=== PATIENT | female | born 1975 | race Caucasian/White ===

== ENCOUNTER 2020-05-09 19:00 | Inpatient (IN) | payer MEDICAID, OTHER, SELFPAY ==
[2020-05-30 03:00] VITALS: BMI 29.0
[2020-05-31] MEDS: hydrOXYzine HCL 25 MG TABLET PO (00:30)
[2020-05-31] MEDS: traZODone HCL 50 MG TABLET PO (00:30)
[2020-05-31] MEDS: LORazepam 1 MG TABLET PO (02:00)
[2020-05-31] MEDS: QUEtiapine Fumarate 50 MG TABLET PO ×2 (02:00→22:32)
[2020-05-31 06:00] VITALS: BP 118/72; PULSE 97; RESP 18; TEMP 36.1; O2SAT 96
[2020-05-31] MEDS: Levothyroxine Sodium 100 MCG TABLET PO (06:41)
[2020-05-31 07:00] VITALS: BMI 33.0
[2020-05-31] MEDS: cloZAPine 25 MG TABLET 50 MG PO (09:29)
[2020-05-31] MEDS: Sertraline HCL 25 MG TABLET PO (09:29)
[2020-05-31] MEDS: Divalproex Sodium ER 250 MG TAB.ER.24H 750 MG PO ×2 (09:30→22:33)
[2020-05-31] MEDS: Propranolol HCL 10 MG TABLET PO ×3 (09:36→22:33)
[2020-05-31] MEDS: LORazepam 0.5 MG TABLET PO ×3 (10:08→22:32)
[2020-05-31 13:00] VITALS: PULSE 106
[2020-05-31 18:00] VITALS: BP 129/84; PULSE 99; TEMP 36.6
--- NOTE | 2020-05-31 21:05 | HO.PSYCHPN ---
Assessment & Plan Assessment & Plan (1) Bipolar 1 disorder, mixed: Status: Acute Code(s): F31.60 - Bipolar disorder, current episode mixed, unspecified (2) OCD (obsessive compulsive disorder): Status: Acute Code(s): F42.9 - Obsessive-compulsive disorder, unspecified Assessment and Plan: continue clozapine Seroquel increase sertraline Greater than 50% of the session was spent on counseling and/or coordination of care Subjective Subjective Reason For Visit: Mdd Interim History: patient somewhat calmer less irritable severe sedation noted Medication Compliance: Yes Side effects from medications: Yes Mental Status Exam Mental Status Exam Patient Appearance: Fatigued Level of Consciousness: Drowsy Patient Behavior: Anxious, Fatigued and Distractible Mood Description: Withdrawn, Depressed, Nervous and Apprehensive Affect Description: Withdrawn Hallucinations: None Delusions: Not Present Thought Process: Distracted and Rumination Thought Content: Obsessional Thoughts Depressive Symptoms: Increased Anxiety and Diff. Making Decisions Judgement: Fair Diagnostics Vital Signs (24Hr): Vital Signs - 24 hr 05/31/20 06:00 05/31/20 13:00 Temperature 97 F Pulse Rate 97 106 H Respiratory Rate 18 Blood Pressure 118/72 Pulse Oximetry 96 Body Mass Index 33.0 Labs Results: 05/24/20 09:20 05/11/20 08:02 Medications Medications Ambulatory Orders Medication Instructions Recorded diazepam 10 mg PO BID PRN 05/30/20 divalproex 500 mg PO BID 05/30/20 levothyroxine 100 mcg PO DAILY 05/30/20 lurasidone 40 mg PO DAILY 05/30/20 oxybutynin chloride 10 mg PO DAILY 05/30/20 quetiapine 200 mg PO BEDTIME 05/30/20 Allergies Allergies Allergy/AdvReac Type Severity Reaction Status Date / Time No Known Allergies Allergy Unverified 05/17/20 19:50 [No Known Allergies*]
[2020-05-31] MEDS: cloZAPine 100 MG TABLET 150 MG PO (22:32)
[2020-05-31 22:33] VITALS: BP 129/84; PULSE 99
[2020-06-01] MEDS: traZODone HCL 50 MG TABLET PO (00:09)
[2020-06-01] MEDS: hydrOXYzine HCL 25 MG TABLET PO (00:09)
[2020-06-01 06:00] VITALS: BP 105/56; PULSE 95; RESP 18; TEMP 36.4; O2SAT 97
[2020-06-01] MEDS: Levothyroxine Sodium 100 MCG TABLET PO (06:46)
[2020-06-01] MEDS: Divalproex Sodium ER 250 MG TAB.ER.24H 750 MG PO (08:43)
[2020-06-01] MEDS: Sertraline HCL 25 MG TABLET PO (08:43)
[2020-06-01] MEDS: LORazepam 0.5 MG TABLET PO ×3 (08:44→21:44)
[2020-06-01] MEDS: cloZAPine 25 MG TABLET 50 MG PO (08:44)
[2020-06-01 08:45] VITALS: BP 105/56; PULSE 95
[2020-06-01] MEDS: Propranolol HCL 10 MG TABLET PO ×3 (08:45→21:57)
[2020-06-01 12:59] VITALS: PULSE 88
[2020-06-01 16:21] VITALS: BP 121/63; PULSE 86; TEMP 36.4
[2020-06-01] MEDS: Divalproex Sodium ER 500 MG TAB.ER.24H 1000 MG PO (21:44)
[2020-06-01] MEDS: cloZAPine 25 MG TABLET 175 MG PO (21:45)
[2020-06-01 21:57] VITALS: BP 129/77; PULSE 102
--- NOTE | 2020-06-01 23:55 | HO.PSYCHPN ---
Assessment & Plan Assessment & Plan (1) OCD (obsessive compulsive disorder): Status: Acute Code(s): F42.9 - Obsessive-compulsive disorder, unspecified (2) Bipolar 1 disorder, mixed: Status: Acute Code(s): F31.60 - Bipolar disorder, current episode mixed, unspecified Assessment and Plan: taper lorazepam Seroquel Depakote change clozapine to mostly at bedtime will check clozapine level patient quite sedated unable to function will need to taper medication down had been quite manic agitated on admission Greater than 50% of the session was spent on counseling and/or coordination of care Subjective Subjective Reason For Visit: Mdd Interim History: patient anxious depressed quite sedated unable to function need to taper medication patient aware Medication Compliance: Yes Side effects from medications: Yes Attending Groups: Intermittent Mental Status Exam Mental Status Exam Narrative: dressed mostly appropriately odd affect, Patient Appearance: Fatigued Patient Orientation: Person, Place, Time and Situation Level of Consciousness: Drowsy Patient Behavior: Hypersexual (wants a medication to decrease this), Restless and Invasion - Personal Space (stands too close , less so today) Mood Description: Fearful and Angry Affect Description: Labile Patient Cognition Impaired: No Ability to Follow Directions: Fair Speech Pattern: Perseverating Thought Process: Racing and Rumination Thought Content: positive for Perseveration Depressive Symptoms: Sleeping More Than Usual (in day) and Thoughts of /Suicide Abnormal Motor Activity Signs and Symptoms: Restlessness Judgement: Poor Diagnostics Vital Signs (24Hr): Vital Signs - 24 hr 06/01/20 06:00 06/01/20 08:45 06/01/20 12:59 Temperature 97.6 F Pulse Rate 95 95 88 Respiratory Rate 18 Blood Pressure 105/56 L 105/56 L Pulse Oximetry 97 06/01/20 16:21 06/01/20 21:57 Temperature 97.5 F Pulse Rate 86 102 H Respiratory Rate Blood Pressure 121/63 129/77 Pulse Oximetry Body Mass Index 33.0 Labs Results: 05/24/20 09:20 05/11/20 08:02 Medications Medications Current Medications Generic Name Dose Route Start Last Admin Trade Name Freq PRN Reason Stop Dose Admin Acetaminophen 650 mg 05/31/20 00:01 Acetaminophen 325 Mg Tablet PO Q6H PRN Pain, Mild (Pain Scale 1-3) Al Hydroxide/Mg Hydroxide 30 ml 10/01/20 00:01 Magnesium Hydrox/Alum Hydrox 30 Ml Oral.Susp PO Q6H PRN Heartburn/nausea Clozapine 175 mg 06/01/20 21:00 06/01/20 21:45 Clozapine 25 Mg Tablet PO 175 mg BEDTIME [place] Administration Clozapine 25 mg 06/02/20 09:00 Clozapine 25 Mg Tablet PO DAILY [place] Divalproex Sodium 1,000 mg 06/01/20 21:00 06/01/20 21:44 Divalproex Sodium Er 500 Mg Tab.Er.24h PO 1,000 mg BEDTIME [place] Administration Hydroxyzine HCl 25 mg 05/31/20 21:00 06/01/20 00:09 Hydroxyzine Hcl 25 Mg Tablet PO 25 mg BEDTIME MRX1 PRN Administration NIGHT TIME ANXIETY Levothyroxine Sodium 100 mcg 05/31/20 06:30 06/01/20 06:46 Levothyroxine Sodium 100 Mcg Tablet PO 100 mcg DAILY@0630 [place] Administration Lorazepam 0.5 mg 05/31/20 09:00 06/01/20 21:44 Lorazepam 0.5 Mg Tablet PO 0.5 mg TID [place] Administration Lorazepam 1 mg 05/31/20 00:00 05/31/20 02:00 Lorazepam 1 Mg Tablet PO 1 mg DAILY PRN Administration anxiety/restlessness Magnesium Hydroxide 30 ml 05/31/20 00:01 Milk Of Magnesia 30 Ml Oral.Susp PO Q24H PRN Constipation Nicotine Polacrilex 2 mg 05/31/20 00:01 Nicotine Polacrilex 2 Mg Gum BUCCAL Q2H PRN Nicotine Cravings Oxybutynin Chloride 10 mg 05/31/20 09:00 06/01/20 08:43 Oxybutynin Chloride Er 5 Mg Tab.Er.24 PO 10 mg DAILY [place] Administration Propranolol HCl 10 mg 05/31/20 08:30 06/01/20 21:57 Propranolol Hcl 10 Mg Tablet PO 10 mg TID@0830,1330,2100 [place] Administration Protocol Quetiapine Fumarate 50 mg 05/31/20 00:01 05/31/20 02:00 Quetiapine Fumarate 50 Mg Tablet PO 50 mg Q4H PRN Administration anxiety/restlessness Sertraline HCl 50 mg 06/02/20 09:00 Sertraline Hcl 50 Mg Tablet PO DAILY [place] Trazodone HCl 50 mg 06/01/20 11:41 Trazodone Hcl 50 Mg Tablet PO BEDTIME PRN Insomnia Allergies Allergies Allergy/AdvReac Type Severity Reaction Status Date / Time No Known Allergies Allergy Unverified 05/17/20 19:50 [No Known Allergies*]
[2020-06-02] MEDS: traZODone HCL 50 MG TABLET PO (00:16)
[2020-06-02] MEDS: hydrOXYzine HCL 25 MG TABLET PO (00:16)
[2020-06-02 06:00] VITALS: BP 123/63; PULSE 98; RESP 22; TEMP 36.5
[2020-06-02] MEDS: Levothyroxine Sodium 100 MCG TABLET PO (06:40)
[2020-06-02] MEDS: cloZAPine 25 MG TABLET PO (09:16)
[2020-06-02] MEDS: LORazepam 0.5 MG TABLET PO ×3 (09:16→21:54)
[2020-06-02] MEDS: Sertraline HCL 50 MG TABLET PO (09:16)
[2020-06-02 09:18] VITALS: BP 123/63; PULSE 98
[2020-06-02] MEDS: Propranolol HCL 10 MG TABLET PO ×2 (09:18→14:12)
[2020-06-02 10:55] LABS: Neut%MD 65.9 %; Neutrophils Absolute Auto 7.6 X10*3/uL (2.0-8.3); WBCANC 11.6 X10*3/uL
--- NOTE | 2020-06-02 12:14 | P.PNPSI_ITS ---
Assessment & Plan Assessment & Plan (1) OCD (obsessive compulsive disorder): Status: Acute Code(s): F42.9 - Obsessive-compulsive disorder, unspecified Assessment and Plan: encourage patient to stay up in day - , stop thoughts from racing /ruminating by engagement in other activities (2) Bipolar 1 disorder, mixed: Status: Acute Code(s): F31.60 - Bipolar disorder, current episode mixed, unspecified Assessment and Plan: ongoing mild lability , tolerating clozapine - Greater than 50% of the session was spent on counseling and/or coordination of care Subjective Subjective Date of Service: 06/02/20 Reason For Visit: Mdd Subjective Notes: Conditional Voluntary Interim History: Pt continues to not know what to do with herself- gets agitated on discussion with providers but fine when talking with other patients, Has had sleep /wake cycle reversed, up at night and sleeping in day - co feeling tired from medications But today she did stay up during most of day Medication Compliance: Yes Side effects from medications: Yes (fatigue) Attending Groups: Intermittent Review of Systems Acute medical concerns: No Review of Systems: fatigue complaint Mental Status Exam Mental Status Exam Narrative: GEts more upset the more you ask her questions, if you ask her for questions, or concerns she says no you ask felt she couldn't understand me in eritrean but when got client resource specialist she spoke to me in Syriac Patient Appearance: Fatigued Patient Orientation: Person and Place Level of Consciousness: Awake Patient Behavior: Posturing, Restless and Invasion - Personal Space Mood Description: Apprehensive Affect Description: Labile (mildly ) Patient Cognition Impaired: No Ability to Follow Directions: Fair Speech Pattern: Difficulty Finding Words and Inappropriate Memory Description: Normal for Patient Hallucinations: None Thought Process: Distracted and Rumination Thought Content: positive for Racing, positive for Perseveration and positive for Disorganized Depressive Symptoms: Increased Anxiety, Diff. Making Decisions, Muscle Tension, Increased Irritability, Feelings of Worthlessness, Feelings of Guilt, Thoughts of /Suicide (passive) and Difficulty Concentrating Abnormal Motor Activity Signs and Symptoms: Restlessness Judgement: Poor (can't ask appropriate questions about her situation or understand what medications are doing) Judgement and Insight: got up and got too close , didn't cover mouth with mask Diagnostics Vital Signs (24Hr): Vital Signs - 24 hr 06/01/20 12:59 06/01/20 16:21 06/01/20 21:57 Temperature 97.5 F Pulse Rate 88 86 102 H Respiratory Rate Blood Pressure 121/63 129/77 06/02/20 06:00 06/02/20 09:18 Temperature 97.7 F Pulse Rate 98 98 Respiratory Rate 22 H Blood Pressure 123/63 123/63 Body Mass Index 33.0 Labs Results: 05/24/20 09:20 05/11/20 08:02 Labs: Laboratory Results - last 48 hr 06/02/20 10:41 Neut # (Auto) 7.6 Medications Medications Current Medications Generic Name Dose Route Start Last Admin Trade Name Freq PRN Reason Stop Dose Admin Acetaminophen 650 mg 05/31/20 00:01 Acetaminophen 325 Mg Tablet PO Q6H PRN Pain, Mild (Pain Scale 1-3) Al Hydroxide/Mg Hydroxide 30 ml 05/31/20 00:01 Magnesium Hydrox/Alum Hydrox 30 Ml Oral.Susp PO Q6H PRN Heartburn/nausea Clozapine 175 mg 06/01/20 21:00 06/01/20 21:45 Clozapine 25 Mg Tablet PO 175 mg BEDTIME [place] Administration Clozapine 25 mg 06/02/20 09:00 06/02/20 09:16 Clozapine 25 Mg Tablet PO 25 mg DAILY [place] Administration Divalproex Sodium 1,000 mg 06/01/20 21:00 06/01/20 21:44 Divalproex Sodium Er 500 Mg Tab.Er.24h PO 1,000 mg BEDTIME [place] Administration Hydroxyzine HCl 25 mg 05/31/20 21:00 06/02/20 00:16 Hydroxyzine Hcl 25 Mg Tablet PO 25 mg BEDTIME MRX1 PRN Administration NIGHT TIME ANXIETY Levothyroxine Sodium 100 mcg 05/31/20 06:30 06/02/20 06:40 Levothyroxine Sodium 100 Mcg Tablet PO 100 mcg DAILY@0630 [place] Administration Lorazepam 0.5 mg 05/31/20 09:00 06/02/20 09:16 Lorazepam 0.5 Mg Tablet PO 0.5 mg TID [place] Administration Lorazepam 1 mg 05/31/20 00:00 05/31/20 02:00 Lorazepam 1 Mg Tablet PO 1 mg DAILY PRN Administration anxiety/restlessness Magnesium Hydroxide 30 ml 05/31/20 00:01 Milk Of Magnesia 30 Ml Oral.Susp PO Q24H PRN Constipation Nicotine Polacrilex 2 mg 05/31/20 00:01 Nicotine Polacrilex 2 Mg Gum BUCCAL Q2H PRN Nicotine Cravings Oxybutynin Chloride 10 mg 05/31/20 09:00 06/02/20 09:15 Oxybutynin Chloride Er 5 Mg Tab.Er.24 PO 10 mg DAILY [place] Administration Propranolol HCl 10 mg 05/31/20 08:30 06/02/20 09:18 Propranolol Hcl 10 Mg Tablet PO 10 mg TID@0830,1330,2100 [place] Administration Protocol Quetiapine Fumarate 50 mg 05/31/20 00:01 05/31/20 02:00 Quetiapine Fumarate 50 Mg Tablet PO 50 mg Q4H PRN Administration anxiety/restlessness Sertraline HCl 50 mg 06/02/20 09:00 06/02/20 09:16 Sertraline Hcl 50 Mg Tablet PO 50 mg DAILY [place] Administration Trazodone HCl 50 mg 06/01/20 11:41 06/02/20 00:16 Trazodone Hcl 50 Mg Tablet PO 50 mg BEDTIME PRN Administration Insomnia Allergies Allergies Allergy/AdvReac Type Severity Reaction Status Date / Time No Known Allergies Allergy Unverified 05/17/20 19:50 [No Known Allergies*]
[2020-06-02 14:12] VITALS: BP 133/94; PULSE 107
[2020-06-02 16:47] VITALS: BP 120/73; PULSE 87; TEMP 36.2
[2020-06-02] MEDS: cloZAPine 25 MG TABLET 175 MG PO (21:54)
[2020-06-02] MEDS: Divalproex Sodium ER 500 MG TAB.ER.24H 1000 MG PO (21:54)
[2020-06-02 21:59] VITALS: BP 120/72; PULSE 87
[2020-06-02] MEDS: Propranolol HCL 10 MG TABLET 20 MG PO (21:59)
[2020-06-03] MEDS: hydrOXYzine HCL 25 MG TABLET PO (00:38)
[2020-06-03] MEDS: traZODone HCL 50 MG TABLET PO (00:38)
[2020-06-03] MEDS: Levothyroxine Sodium 100 MCG TABLET PO (06:05)
[2020-06-03 06:35] VITALS: BP 102/60; PULSE 90; RESP 18; TEMP 35.9; O2SAT 95
[2020-06-03] MEDS: Acetaminophen 325 MG TABLET 650 MG PO (09:15)
[2020-06-03] MEDS: cloZAPine 25 MG TABLET PO (09:19)
[2020-06-03] MEDS: Sertraline HCL 50 MG TABLET PO (09:19)
[2020-06-03] MEDS: LORazepam 0.5 MG TABLET PO ×3 (09:19→21:52)
[2020-06-03] MEDS: Propranolol HCL 10 MG TABLET 20 MG PO ×3 (09:20→21:52)
--- NOTE | 2020-06-03 12:35 | HO.PSYCHPN ---
Assessment & Plan Assessment & Plan (1) OCD (obsessive compulsive disorder): Status: Acute Code(s): F42.9 - Obsessive-compulsive disorder, unspecified Assessment and Plan: perseveration makes it hard to make decisisons for herself - more willing to follow directions (2) Bipolar 1 disorder, mixed: Status: Acute Code(s): F31.60 - Bipolar disorder, current episode mixed, unspecified Assessment and Plan: pointed out to patient that she slept better last night when she stayed up atleast all am yesterday nursing did report she slept in pm yesterday Greater than 50% of the session was spent on counseling and/or coordination of care Subjective Subjective Date of Service: 06/03/20 Reason For Visit: Mdd Subjective Notes: Conditional Voluntary Interim History: Was sleeping when awakened by provider- , less agitated due to this- reports wakes up and ok but then when she has to think of what to do with her day becomes very enraged and disconcerted Medication Compliance: Yes Side effects from medications: Yes (daytime sleeping) Attending Groups: No Review of Systems Acute medical concerns: No Review of Systems: Fatigue in day Mental Status Exam Mental Status Exam Narrative: dressed mostly appropriately odd affect, Patient Appearance: Fatigued Patient Orientation: Person, Place, Time and Situation Level of Consciousness: Drowsy Patient Behavior: Hypersexual (wants a medication to decrease this), Restless and Invasion - Personal Space (stands too close , less so today) Mood Description: Fearful and Angry Affect Description: Labile Patient Cognition Impaired: No Ability to Follow Directions: Fair Speech Pattern: Perseverating Thought Process: Racing and Rumination Thought Content: positive for Perseveration Depressive Symptoms: Sleeping More Than Usual (in day) and Thoughts of /Suicide Abnormal Motor Activity Signs and Symptoms: Restlessness Judgement: Poor Diagnostics Vital Signs (24Hr): Vital Signs - 24 hr 06/02/20 14:12 06/02/20 16:47 06/02/20 21:59 Temperature 97.2 F Pulse Rate 107 H 87 87 Respiratory Rate Blood Pressure 133/94 H 120/73 120/72 Pulse Oximetry 06/03/20 06:35 Temperature 96.7 F L Pulse Rate 90 Respiratory Rate 18 Blood Pressure 102/60 Pulse Oximetry 95 Body Mass Index 33.0 Labs Results: 05/24/20 09:20 05/11/20 08:02 Labs: Laboratory Results - last 48 hr 06/02/20 10:41 Neut # (Auto) 7.6 Medications Medications Current Medications Generic Name Dose Route Start Last Admin Trade Name Freq PRN Reason Stop Dose Admin Acetaminophen 650 mg 05/31/20 00:01 Acetaminophen 325 Mg Tablet PO Q6H PRN Pain, Mild (Pain Scale 1-3) Al Hydroxide/Mg Hydroxide 30 ml 05/31/20 00:01 Magnesium Hydrox/Alum Hydrox 30 Ml Oral.Susp PO Q6H PRN Heartburn/nausea Clozapine 175 mg 06/01/20 21:00 06/02/20 21:54 Clozapine 25 Mg Tablet PO 175 mg BEDTIME [place] Administration Clozapine 25 mg 06/02/20 09:00 06/03/20 09:19 Clozapine 25 Mg Tablet PO 25 mg DAILY [place] Administration Divalproex Sodium 1,000 mg 06/01/20 21:00 06/02/20 21:54 Divalproex Sodium Er 500 Mg Tab.Er.24h PO 1,000 mg BEDTIME [place] Administration Hydroxyzine HCl 25 mg 05/31/20 21:00 06/03/20 00:38 Hydroxyzine Hcl 25 Mg Tablet PO 25 mg BEDTIME MRX1 PRN Administration NIGHT TIME ANXIETY Levothyroxine Sodium 100 mcg 05/31/20 06:30 06/03/20 06:05 Levothyroxine Sodium 100 Mcg Tablet PO 100 mcg DAILY@0630 [place] Administration Lorazepam 0.5 mg 05/31/20 09:00 06/03/20 09:19 Lorazepam 0.5 Mg Tablet PO 0.5 mg TID [place] Administration Lorazepam 1 mg 05/31/20 00:00 05/31/20 02:00 Lorazepam 1 Mg Tablet PO 1 mg DAILY PRN Administration anxiety/restlessness Magnesium Hydroxide 30 ml 05/31/20 00:01 Milk Of Magnesia 30 Ml Oral.Susp PO Q24H PRN Constipation Nicotine Polacrilex 2 mg 05/31/20 00:01 Nicotine Polacrilex 2 Mg Gum BUCCAL Q2H PRN Nicotine Cravings Oxybutynin Chloride 10 mg 05/31/20 09:00 06/03/20 09:19 Oxybutynin Chloride Er 5 Mg Tab.Er.24 PO 10 mg DAILY [place] Administration Propranolol HCl 20 mg 06/02/20 21:00 06/03/20 09:20 Propranolol Hcl 10 Mg Tablet PO 20 mg TID@0830,1330,2100 [place] Administration Protocol Quetiapine Fumarate 50 mg 05/31/20 00:01 05/31/20 02:00 Quetiapine Fumarate 50 Mg Tablet PO 50 mg Q4H PRN Administration anxiety/restlessness Sertraline HCl 50 mg 06/02/20 09:00 06/03/20 09:19 Sertraline Hcl 50 Mg Tablet PO 50 mg DAILY [place] Administration Trazodone HCl 50 mg 06/01/20 11:41 06/03/20 00:38 Trazodone Hcl 50 Mg Tablet PO 50 mg BEDTIME PRN Administration Insomnia Allergies Allergies Allergy/AdvReac Type Severity Reaction Status Date / Time No Known Allergies Allergy Unverified 05/17/20 19:50 [No Known Allergies*]
[2020-06-03 14:19] VITALS: BP 109/72; PULSE 92
[2020-06-03 18:00] VITALS: BP 110/81; PULSE 89; TEMP 36.2
[2020-06-03 21:52] VITALS: BP 134/79; PULSE 95
[2020-06-03] MEDS: Divalproex Sodium ER 500 MG TAB.ER.24H 1000 MG PO (21:52)
[2020-06-03] MEDS: cloZAPine 25 MG TABLET 175 MG PO (21:52)
[2020-06-04] MEDS: traZODone HCL 50 MG TABLET PO (00:10)
[2020-06-04] MEDS: QUEtiapine Fumarate 50 MG TABLET PO (00:10)
[2020-06-04 06:30] VITALS: BP 97/58; PULSE 86; RESP 20; TEMP 36.3
[2020-06-04] MEDS: Levothyroxine Sodium 100 MCG TABLET PO (06:34)
[2020-06-04] MEDS: cloZAPine 25 MG TABLET PO (08:33)
[2020-06-04] MEDS: LORazepam 0.5 MG TABLET PO ×3 (08:33→22:37)
[2020-06-04] MEDS: Sertraline HCL 50 MG TABLET PO (08:33)
[2020-06-04 08:37] VITALS: BP 102/62; PULSE 86
[2020-06-04] MEDS: Propranolol HCL 10 MG TABLET 20 MG PO ×3 (08:37→22:31)
[2020-06-04 08:39] VITALS: BP 102/62; PULSE 86
[2020-06-04 13:49] VITALS: PULSE 92
[2020-06-04 18:00] VITALS: BP 99/57; PULSE 91; RESP 20; O2SAT 96
--- NOTE | 2020-06-04 21:54 | HO.PSYCHPN ---
Assessment & Plan Assessment & Plan (1) OCD (obsessive compulsive disorder): Status: Acute Code(s): F42.9 - Obsessive-compulsive disorder, unspecified (2) Bipolar 1 disorder, mixed: Status: Acute Code(s): F31.60 - Bipolar disorder, current episode mixed, unspecified Assessment and Plan: increase sertraline to 100 mg for depressive symptoms and obsessional thoughts. Continue clozapine Depakote. Clozapine level Depakote and clozapine changed to all at bedtime consider Latuda consider ECT Greater than 50% of the session was spent on counseling and/or coordination of care Subjective Subjective Reason For Visit: Mdd Interim History: patient calmer sedated tolerating clozapine still asking to be no improvement in depression but less labile Medication Compliance: Yes Side effects from medications: Yes Attending Groups: Intermittent Mental Status Exam Mental Status Exam Narrative: dressed mostly appropriately odd affect, Patient Appearance: Fatigued Patient Orientation: Person, Place, Time and Situation Level of Consciousness: Drowsy Patient Behavior: Hypersexual (wants a medication to decrease this), Restless and Invasion - Personal Space (stands too close , less so today) Mood Description: Fearful and Angry Affect Description: Labile Patient Cognition Impaired: No Ability to Follow Directions: Fair Speech Pattern: Perseverating Thought Process: Racing and Rumination Thought Content: positive for Perseveration Depressive Symptoms: Sleeping More Than Usual (in day) and Thoughts of /Suicide Abnormal Motor Activity Signs and Symptoms: Restlessness Judgement: Poor Diagnostics Vital Signs (24Hr): Vital Signs - 24 hr 06/04/20 06:30 06/04/20 08:37 06/04/20 08:39 Temperature 97.4 F Pulse Rate 86 86 86 Respiratory Rate 20 Blood Pressure 97/58 L 102/62 102/62 Pulse Oximetry 06/04/20 13:49 06/04/20 18:00 Temperature Pulse Rate 92 91 Respiratory Rate 20 Blood Pressure 99/57 L Pulse Oximetry 96 Body Mass Index 33.0 Labs Results: 05/24/20 09:20 05/11/20 08:02 Medications Medications Current Medications Generic Name Dose Route Start Last Admin Trade Name Freq PRN Reason Stop Dose Admin Acetaminophen 650 mg 05/31/20 00:01 06/03/20 09:15 Acetaminophen 325 Mg Tablet PO 650 mg Q6H PRN Administration Pain, Mild (Pain Scale 1-3) Al Hydroxide/Mg Hydroxide 30 ml 05/31/20 00:01 Magnesium Hydrox/Alum Hydrox 30 Ml Oral.Susp PO Q6H PRN Heartburn/nausea Clozapine 175 mg 06/01/20 21:00 06/03/20 21:52 Clozapine 25 Mg Tablet PO 175 mg BEDTIME [place] Administration Clozapine 25 mg 06/02/20 09:00 06/04/20 08:33 Clozapine 25 Mg Tablet PO 25 mg DAILY [place] Administration Divalproex Sodium 1,000 mg 06/01/20 21:00 06/03/20 21:52 Divalproex Sodium Er 500 Mg Tab.Er.24h PO 1,000 mg BEDTIME [place] Administration Hydroxyzine HCl 25 mg 05/31/20 21:00 06/03/20 00:38 Hydroxyzine Hcl 25 Mg Tablet PO 25 mg BEDTIME MRX1 PRN Administration NIGHT TIME ANXIETY Levothyroxine Sodium 100 mcg 05/31/20 06:30 06/04/20 06:34 Levothyroxine Sodium 100 Mcg Tablet PO 100 mcg DAILY@0630 [place] Administration Lorazepam 0.5 mg 05/31/20 09:00 06/04/20 14:41 Lorazepam 0.5 Mg Tablet PO 0.5 mg TID [place] Administration Lorazepam 1 mg 05/31/20 00:00 05/31/20 02:00 Lorazepam 1 Mg Tablet PO 1 mg DAILY PRN Administration anxiety/restlessness Magnesium Hydroxide 30 ml 05/31/20 00:01 Milk Of Magnesia 30 Ml Oral.Susp PO Q24H PRN Constipation Nicotine Polacrilex 2 mg 05/31/20 00:01 Nicotine Polacrilex 2 Mg Gum BUCCAL Q2H PRN Nicotine Cravings Oxybutynin Chloride 10 mg 05/31/20 09:00 06/04/20 08:33 Oxybutynin Chloride Er 5 Mg Tab.Er.24 PO 10 mg DAILY [place] Administration Propranolol HCl 20 mg 06/02/20 21:00 06/04/20 13:49 Propranolol Hcl 10 Mg Tablet PO 20 mg TID@0830,1330,2100 [place] Administration Protocol Quetiapine Fumarate 50 mg 05/31/20 00:01 06/04/20 00:10 Quetiapine Fumarate 50 Mg Tablet PO 50 mg Q4H PRN Administration anxiety/restlessness Sertraline HCl 50 mg 06/02/20 09:00 06/04/20 08:33 Sertraline Hcl 50 Mg Tablet PO 50 mg DAILY [place] Administration Trazodone HCl 50 mg 06/01/20 11:41 06/04/20 00:10 Trazodone Hcl 50 Mg Tablet PO 50 mg BEDTIME PRN Administration Insomnia Allergies Allergies Allergy/AdvReac Type Severity Reaction Status Date / Time No Known Allergies Allergy Unverified 05/17/20 19:50 [No Known Allergies*]
[2020-06-04 22:31] VITALS: BP 115/73; PULSE 84
[2020-06-04] MEDS: Divalproex Sodium ER 500 MG TAB.ER.24H 1000 MG PO (22:31)
[2020-06-05 06:20] VITALS: BP 95/63; PULSE 63; RESP 20; TEMP 36.6
[2020-06-05] MEDS: Levothyroxine Sodium 100 MCG TABLET PO (06:35)
[2020-06-05] MEDS: Sertraline HCL 50 MG TABLET 100 MG PO (10:21)
[2020-06-05 10:36] VITALS: BP 122/69; PULSE 101
[2020-06-05] MEDS: Propranolol HCL 10 MG TABLET 20 MG PO ×2 (10:36→21:36)
[2020-06-05] MEDS: LORazepam 0.5 MG TABLET PO ×3 (10:47→21:32)
[2020-06-05] MEDS: cloZAPine 25 MG TABLET 50 MG PO (14:25)
--- NOTE | 2020-06-05 15:16 | PC.NURSE ---
Pt reported to a male staff member that she is having sexual sensations and was asking what she can do about it . Two events of this occured at 1320 and 1450.
[2020-06-05 16:17] VITALS: BP 123/79; PULSE 89; TEMP 36.6
[2020-06-05 21:29] VITALS: BP 151/79; PULSE 100; TEMP 36.3
[2020-06-05] MEDS: Divalproex Sodium ER 500 MG TAB.ER.24H 1000 MG PO (21:32)
[2020-06-05] MEDS: cloZAPine 25 MG TABLET 150 MG PO (21:34)
[2020-06-05 21:36] VITALS: BP 151/79; PULSE 100
--- NOTE | 2020-06-05 21:37 | HO.PSYCHPN ---
Assessment & Plan Assessment & Plan (1) OCD (obsessive compulsive disorder): Status: Acute Code(s): F42.9 - Obsessive-compulsive disorder, unspecified (2) Bipolar 1 disorder, mixed: Status: Acute Code(s): F31.60 - Bipolar disorder, current episode mixed, unspecified Assessment and Plan: he gradually increased sertraline continue Clozaril and Depakote continue lorazepam monitor for over sedation Clozaril level Greater than 50% of the session was spent on counseling and/or coordination of care Patient educated on: diagnosis, medication risk/benefits and therapeutic strategies Reason for contiued inpatient stay Substantial Risk for: harm to self, inability to function and rapid decompensation Subjective Subjective Reason For Visit: Mdd Subjective Notes: Conditional Voluntary Interim History: patient continues to be anxious ruminating difficulty finding any pleasure difficulty seeing the path to her future was unable to participate and meeting Medication Compliance: Yes Side effects from medications: Yes Attending Groups: Intermittent Mental Status Exam Mental Status Exam Patient Appearance: Appropriate Patient Orientation: Person, Place and Situation Level of Consciousness: Awake Patient Behavior: Cooperative, Fearful and Impulsive Mood Description: Withdrawn, Depressed, Anxious and Blunted Affect Description: Withdrawn, Depressed and Anxious Ability to Follow Directions: Fair Speech Pattern: Perseverating Thought Process: Rumination Thought Content: positive for Obsessional Thoughts and positive for Preoccupation Depressive Symptoms: Increased Anxiety, Diff. Making Decisions, Difficulty Sleeping, Loss of Int. in Activity and Feelings of Worthlessness Diagnostics Vital Signs (24Hr): Vital Signs - 24 hr 06/04/20 22:31 06/05/20 06:20 06/05/20 10:36 Temperature 97.8 F Pulse Rate 84 63 101 H Respiratory Rate 20 Blood Pressure 115/73 95/63 122/69 06/05/20 16:17 06/05/20 21:29 06/05/20 21:36 Temperature 97.9 F 97.3 F Pulse Rate 89 100 100 Respiratory Rate Blood Pressure 123/79 151/79 H 151/79 H Body Mass Index 33.0 Labs Results: 05/24/20 09:20 05/11/20 08:02 Medications Medications Current Medications Generic Name Dose Route Start Last Admin Trade Name Freq PRN Reason Stop Dose Admin Acetaminophen 650 mg 05/31/20 00:01 06/03/20 09:15 Acetaminophen 325 Mg Tablet PO 650 mg Q6H PRN Administration Pain, Mild (Pain Scale 1-3) Al Hydroxide/Mg Hydroxide 30 ml 05/31/20 00:01 Magnesium Hydrox/Alum Hydrox 30 Ml Oral.Susp PO Q6H PRN Heartburn/nausea Clozapine 150 mg 06/05/20 21:00 06/05/20 21:34 Clozapine 25 Mg Tablet PO 150 mg BEDTIME [place] Administration Divalproex Sodium 1,000 mg 06/01/20 21:00 06/05/20 21:32 Divalproex Sodium Er 500 Mg Tab.Er.24h PO 1,000 mg BEDTIME [place] Administration Hydroxyzine HCl 25 mg 05/31/20 21:00 06/03/20 00:38 Hydroxyzine Hcl 25 Mg Tablet PO 25 mg BEDTIME MRX1 PRN Administration NIGHT TIME ANXIETY Levothyroxine Sodium 100 mcg 05/31/20 06:30 06/05/20 06:35 Levothyroxine Sodium 100 Mcg Tablet PO 100 mcg DAILY@0630 [place] Administration Lorazepam 0.5 mg 06/05/20 10:35 06/05/20 21:32 Lorazepam 0.5 Mg Tablet PO 0.5 mg TID [place] Administration Magnesium Hydroxide 30 ml 05/31/20 00:01 Milk Of Magnesia 30 Ml Oral.Susp PO Q24H PRN Constipation Nicotine Polacrilex 2 mg 05/31/20 00:01 Nicotine Polacrilex 2 Mg Gum BUCCAL Q2H PRN Nicotine Cravings Oxybutynin Chloride 10 mg 05/31/20 09:00 06/05/20 10:16 Oxybutynin Chloride Er 5 Mg Tab.Er.24 PO 10 mg DAILY [place] Administration Propranolol HCl 20 mg 06/02/20 21:00 06/05/20 21:36 Propranolol Hcl 10 Mg Tablet PO 20 mg TID@0830,1330,2100 [place] Administration Protocol Quetiapine Fumarate 50 mg 05/31/20 00:01 06/04/20 00:10 Quetiapine Fumarate 50 Mg Tablet PO 50 mg Q4H PRN Administration anxiety/restlessness Sertraline HCl 100 mg 06/05/20 09:00 06/05/20 10:21 Sertraline Hcl 50 Mg Tablet PO 100 mg DAILY [place] Administration Trazodone HCl 50 mg 06/01/20 11:41 06/04/20 00:10 Trazodone Hcl 50 Mg Tablet PO 50 mg BEDTIME PRN Administration Insomnia Allergies Allergies Allergy/AdvReac Type Severity Reaction Status Date / Time No Known Allergies Allergy Unverified 05/17/20 19:50 [No Known Allergies*]
[2020-06-06 05:40] VITALS: BP 105/65; PULSE 78; RESP 20; TEMP 36.8
[2020-06-06] MEDS: Levothyroxine Sodium 100 MCG TABLET PO (05:44)
[2020-06-06] MEDS: Sertraline HCL 50 MG TABLET 100 MG PO (09:19)
[2020-06-06] MEDS: LORazepam 0.5 MG TABLET PO ×3 (09:20→22:03)
[2020-06-06 09:54] VITALS: BP 105/65; PULSE 78
[2020-06-06] MEDS: Propranolol HCL 10 MG TABLET 20 MG PO ×3 (09:54→22:06)
[2020-06-06] MEDS: QUEtiapine Fumarate 50 MG TABLET PO ×2 (09:55→13:53)
--- NOTE | 2020-06-06 10:26 | HO.PSYCHPN ---
Assessment & Plan Assessment & Plan (1) OCD (obsessive compulsive disorder): Status: Acute Code(s): F42.9 - Obsessive-compulsive disorder, unspecified (2) Bipolar 1 disorder, mixed: Status: Acute Code(s): F31.60 - Bipolar disorder, current episode mixed, unspecified Assessment and Plan: he gradually increased sertraline continue Clozaril and Depakote continue lorazepam monitor for over sedation Clozaril level trying to began transition to therapeutic outpatient environment Greater than 50% of the session was spent on counseling and/or coordination of care Subjective Subjective Reason For Visit: Mdd Interim History: patient continues to be anxious ruminating difficulty finding any pleasure difficulty seeing the path to her future continue sertraline continue clozapine and Depakote Mental Status Exam Mental Status Exam Narrative: dressed mostly appropriately odd affect, Patient Appearance: Appropriate Patient Orientation: Person, Place and Situation Level of Consciousness: Awake Patient Behavior: Cooperative, Fearful and Impulsive Mood Description: Withdrawn, Depressed, Anxious and Blunted Affect Description: Withdrawn, Depressed and Anxious Patient Cognition Impaired: No Ability to Follow Directions: Fair Speech Pattern: Perseverating Memory Description: Normal for Patient Diagnostics Vital Signs (24Hr): Vital Signs - 24 hr 06/05/20 10:36 06/05/20 16:17 06/05/20 21:29 Temperature 97.9 F 97.3 F Pulse Rate 101 H 89 100 Respiratory Rate Blood Pressure 122/69 123/79 151/79 H 06/05/20 21:36 06/06/20 05:40 06/06/20 09:54 Temperature 98.2 F Pulse Rate 100 78 78 Respiratory Rate 20 Blood Pressure 151/79 H 105/65 105/65 Body Mass Index 33.0 Labs Results: 05/24/20 09:20 05/11/20 08:02 Medications Medications Current Medications Generic Name Dose Route Start Last Admin Trade Name Freq PRN Reason Stop Dose Admin Acetaminophen 650 mg 05/31/20 00:01 06/03/20 09:15 Acetaminophen 325 Mg Tablet PO 650 mg Q6H PRN Administration Pain, Mild (Pain Scale 1-3) Al Hydroxide/Mg Hydroxide 30 ml 05/31/20 00:01 Magnesium Hydrox/Alum Hydrox 30 Ml Oral.Susp PO Q6H PRN Heartburn/nausea Clozapine 200 mg 06/06/20 21:00 Clozapine 100 Mg Tablet PO BEDTIME [place] Divalproex Sodium 1,000 mg 06/01/20 21:00 06/05/20 21:32 Divalproex Sodium Er 500 Mg Tab.Er.24h PO 1,000 mg BEDTIME [place] Administration Hydroxyzine HCl 25 mg 05/31/20 21:00 06/03/20 00:38 Hydroxyzine Hcl 25 Mg Tablet PO 25 mg BEDTIME MRX1 PRN Administration NIGHT TIME ANXIETY Levothyroxine Sodium 100 mcg 05/31/20 06:30 06/06/20 05:44 Levothyroxine Sodium 100 Mcg Tablet PO 100 mcg DAILY@0630 [place] Administration Lorazepam 0.5 mg 06/05/20 10:35 06/06/20 09:20 Lorazepam 0.5 Mg Tablet PO 0.5 mg TID [place] Administration Magnesium Hydroxide 30 ml 05/31/20 00:01 Milk Of Magnesia 30 Ml Oral.Susp PO Q24H PRN Constipation Nicotine Polacrilex 2 mg 05/31/20 00:01 Nicotine Polacrilex 2 Mg Gum BUCCAL Q2H PRN Nicotine Cravings Oxybutynin Chloride 10 mg 05/31/20 09:00 06/06/20 09:19 Oxybutynin Chloride Er 5 Mg Tab.Er.24 PO 10 mg DAILY [place] Administration Propranolol HCl 20 mg 06/02/20 21:00 06/06/20 09:54 Propranolol Hcl 10 Mg Tablet PO 20 mg TID@0830,1330,2100 [place] Administration Protocol Quetiapine Fumarate 50 mg 05/31/20 00:01 06/06/20 09:55 Quetiapine Fumarate 50 Mg Tablet PO 50 mg Q4H PRN Administration anxiety/restlessness Sertraline HCl 100 mg 06/05/20 09:00 06/06/20 09:19 Sertraline Hcl 50 Mg Tablet PO 100 mg DAILY [place] Administration Trazodone HCl 50 mg 06/01/20 11:41 06/04/20 00:10 Trazodone Hcl 50 Mg Tablet PO 50 mg BEDTIME PRN Administration Insomnia Allergies Allergies Allergy/AdvReac Type Severity Reaction Status Date / Time No Known Allergies Allergy Unverified 05/17/20 19:50 [No Known Allergies*]
[2020-06-06 13:27] VITALS: BP 118/64; PULSE 80
[2020-06-06 22:00] VITALS: BP 116/80; PULSE 91; TEMP 36.8
[2020-06-06] MEDS: Divalproex Sodium ER 500 MG TAB.ER.24H 1000 MG PO (22:03)
[2020-06-06] MEDS: cloZAPine 100 MG TABLET 200 MG PO (22:04)
[2020-06-06 22:06] VITALS: BP 136/82; PULSE 90
[2020-06-06 22:30] VITALS: BP 136/82; PULSE 90; TEMP 35.8
[2020-06-06] MEDS: traZODone HCL 50 MG TABLET PO (23:23)
[2020-06-07] MEDS: Levothyroxine Sodium 100 MCG TABLET PO (06:32)
[2020-06-07 06:40] VITALS: BP 103/65; PULSE 97; RESP 18; TEMP 36.1; O2SAT 98
[2020-06-07 07:00] VITALS: BMI 32.9
[2020-06-07] MEDS: LORazepam 0.5 MG TABLET PO ×3 (09:30→22:07)
[2020-06-07] MEDS: Sertraline HCL 50 MG TABLET 100 MG PO (09:30)
[2020-06-07 09:36] VITALS: BP 103/65; PULSE 97
[2020-06-07] MEDS: Propranolol HCL 10 MG TABLET 20 MG PO ×3 (09:36→22:15)
[2020-06-07 13:05] VITALS: BP 110/69; PULSE 86
[2020-06-07] MEDS: cloZAPine 25 MG TABLET PO (22:09)
[2020-06-07] MEDS: cloZAPine 100 MG TABLET 200 MG PO (22:09)
[2020-06-07] MEDS: Divalproex Sodium ER 250 MG TAB.ER.24H 1250 MG PO (22:10)
[2020-06-07 22:15] VITALS: BP 116/80; PULSE 91
--- NOTE | 2020-06-07 22:33 | P.PNPSI_ITS ---
Subjective Subjective Reason For Visit: Mdd Interim History: patient continues to be anxious ruminating difficulty finding any pleasure difficulty seeing the path to her future continue sertraline but dose lowered secondary to worsening agitation continue clozapine dose increase and Depakote Mental Status Exam Mental Status Exam Narrative: dressed mostly appropriately odd affect, Patient Appearance: Disheveled and Appropriate Patient Orientation: Person, Place and Situation Level of Consciousness: Awake and Restless Patient Behavior: Cooperative, Fearful and Impulsive Mood Description: Withdrawn, Depressed, Anxious, Labile, Blunted and Angry Affect Description: Depressed, Anxious, Labile and Angry Patient Cognition Impaired: No Ability to Follow Directions: Fair Speech Pattern: Perseverating Memory Description: Episodic Impaired and Working Impaired Hallucinations: None Thought Process: Racing Thought Content: positive for Stamping [place], positive for Obsessional Thoughts, positive for Circumstantial and positive for Preoccupation Depressive Symptoms: Increased Anxiety and Diff. Making Decisions Diagnostics Vital Signs (24Hr): Vital Signs - 24 hr 06/07/20 06:40 06/07/20 09:36 06/07/20 13:05 Temperature 96.9 F Pulse Rate 97 97 86 Respiratory Rate 18 Blood Pressure 103/65 103/65 110/69 Pulse Oximetry 98 06/07/20 22:15 Temperature Pulse Rate 91 Respiratory Rate Blood Pressure 116/80 Pulse Oximetry Body Mass Index 32.9 Labs Results: 05/24/20 09:20 05/11/20 08:02 Medications Medications Current Medications Generic Name Dose Route Start Last Admin Trade Name Freq PRN Reason Stop Dose Admin Acetaminophen 650 mg 05/31/20 00:01 06/03/20 09:15 Acetaminophen 325 Mg Tablet PO 650 mg Q6H PRN Administration Pain, Mild (Pain Scale 1-3) Al Hydroxide/Mg Hydroxide 30 ml 05/31/20 00:01 Magnesium Hydrox/Alum Hydrox 30 Ml Oral.Susp PO Q6H PRN Heartburn/nausea Clozapine 200 mg 06/07/20 21:00 06/07/20 22:09 Clozapine 100 Mg Tablet PO 200 mg BEDTIME [place] Administration Clozapine 25 mg 06/07/20 21:00 06/07/20 22:09 Clozapine 25 Mg Tablet PO 25 mg BEDTIME [place] Administration Divalproex Sodium 1,250 mg 06/07/20 21:00 06/07/20 22:10 Divalproex Sodium Er 250 Mg Tab.Er.24h PO 1,250 mg BEDTIME [place] Administration Hydroxyzine HCl 25 mg 05/31/20 21:00 06/03/20 00:38 Hydroxyzine Hcl 25 Mg Tablet PO 25 mg BEDTIME MRX1 PRN Administration NIGHT TIME ANXIETY Levothyroxine Sodium 100 mcg 05/31/20 06:30 06/07/20 06:32 Levothyroxine Sodium 100 Mcg Tablet PO 100 mcg DAILY@0630 [place] Administration Lorazepam 0.5 mg 06/05/20 10:35 06/07/20 22:07 Lorazepam 0.5 Mg Tablet PO 0.5 mg TID [place] Administration Magnesium Hydroxide 30 ml 05/31/20 00:01 Milk Of Magnesia 30 Ml Oral.Susp PO Q24H PRN Constipation Nicotine Polacrilex 2 mg 05/31/20 00:01 Nicotine Polacrilex 2 Mg Gum BUCCAL Q2H PRN Nicotine Cravings Oxybutynin Chloride 10 mg 05/31/20 09:00 06/07/20 09:30 Oxybutynin Chloride Er 5 Mg Tab.Er.24 PO 10 mg DAILY [place] Administration Propranolol HCl 20 mg 06/02/20 21:00 06/07/20 22:15 Propranolol Hcl 10 Mg Tablet PO 20 mg TID@0830,1330,2100 [place] Administration Protocol Quetiapine Fumarate 50 mg 05/31/20 00:01 06/06/20 13:53 Quetiapine Fumarate 50 Mg Tablet PO 50 mg Q4H PRN Administration anxiety/restlessness Sertraline HCl 25 mg 06/08/20 09:00 Sertraline Hcl 50 Mg Tablet PO DAILY [facility] Trazodone HCl 50 mg 06/01/20 11:41 06/06/20 23:23 Trazodone Hcl 50 Mg Tablet PO 50 mg BEDTIME PRN Administration Insomnia Allergies Allergies Allergy/AdvReac Type Severity Reaction Status Date / Time No Known Allergies Allergy Unverified 05/17/20 19:50 [No Known Allergies*] Assessment & Plan Assessment & Plan (1) OCD (obsessive compulsive disorder): Status: Acute Code(s): F42.9 - Obsessive-compulsive disorder, unspecified (2) Bipolar 1 disorder, mixed: Status: Acute Code(s): F31.60 - Bipolar disorder, current episode mixed, unspecified Assessment and Plan: need to lower sertraline secondary to agitation continue Clozaril and Depakote continue lorazepam monitor for over sedation Clozaril level trying to began transition to therapeutic outpatient environment may be becoming overly stimulated on sertraline Greater than 50% of the session was spent on counseling and/or coordination of care
[2020-06-08 06:33] VITALS: BP 102/61; PULSE 76; RESP 18; TEMP 36.3; O2SAT 98
[2020-06-08] MEDS: Levothyroxine Sodium 100 MCG TABLET PO (06:49)
[2020-06-08] MEDS: Sertraline HCL 50 MG TABLET 25 MG PO (09:36)
[2020-06-08] MEDS: LORazepam 0.5 MG TABLET PO ×3 (09:37→22:01)
[2020-06-08 09:40] VITALS: BP 102/61; PULSE 76
[2020-06-08] MEDS: Propranolol HCL 10 MG TABLET 20 MG PO ×3 (09:40→21:59)
[2020-06-08 13:42] VITALS: PULSE 94
--- NOTE | 2020-06-08 14:26 | HO.PSYCHPN ---
Subjective Subjective Reason For Visit: Mdd Interim History: patient seems significantly more destabilized unclear if related to anxiety about discharge or if secondary to antidepressant. was aggressive irritable agitated multiple times in the hallway in a way that she has not been recently Mental Status Exam Mental Status Exam Narrative: dressed mostly appropriately odd affect, noted to have periods of severe agitation restlessness thought she would be better off denies active plan in this setting Patient Appearance: Disheveled and Appropriate Patient Orientation: Person, Place and Situation Level of Consciousness: Awake and Restless Patient Behavior: Cooperative, Hypersexual, Restless, Anxious, Fearful and Impulsive Mood Description: Withdrawn, Depressed, Anxious, Labile, Blunted and Angry Affect Description: Depressed, Anxious, Labile and Angry Patient Cognition Impaired: No Ability to Follow Directions: Fair Speech Pattern: Perseverating Memory Description: Episodic Impaired and Working Impaired Diagnostics Vital Signs (24Hr): Vital Signs - 24 hr 06/07/20 22:15 06/08/20 06:33 06/08/20 09:40 Temperature 97.3 F Pulse Rate 91 76 76 Respiratory Rate 18 Blood Pressure 116/80 102/61 102/61 Pulse Oximetry 98 06/08/20 13:42 Temperature Pulse Rate 94 Respiratory Rate Blood Pressure Pulse Oximetry Body Mass Index 32.9 Labs Results: 05/24/20 09:20 05/11/20 08:02 Medications Medications Current Medications Generic Name Dose Route Start Last Admin Trade Name Freq PRN Reason Stop Dose Admin Acetaminophen 650 mg 05/31/20 00:01 06/03/20 09:15 Acetaminophen 325 Mg Tablet PO 650 mg Q6H PRN Administration Pain, Mild (Pain Scale 1-3) Al Hydroxide/Mg Hydroxide 30 ml 05/31/20 00:01 Magnesium Hydrox/Alum Hydrox 30 Ml Oral.Susp PO Q6H PRN Heartburn/nausea Clozapine 200 mg 06/07/20 21:00 06/07/20 22:09 Clozapine 100 Mg Tablet PO 200 mg BEDTIME [place] Administration Clozapine 25 mg 06/07/20 21:00 06/07/20 22:09 Clozapine 25 Mg Tablet PO 25 mg BEDTIME [place] Administration Divalproex Sodium 1,250 mg 06/07/20 21:00 06/07/20 22:10 Divalproex Sodium Er 250 Mg Tab.Er.24h PO 1,250 mg BEDTIME [place] Administration Hydroxyzine HCl 25 mg 05/31/20 21:00 06/03/20 00:38 Hydroxyzine Hcl 25 Mg Tablet PO 25 mg BEDTIME MRX1 PRN Administration NIGHT TIME ANXIETY Levothyroxine Sodium 100 mcg 05/31/20 06:30 06/08/20 06:49 Levothyroxine Sodium 100 Mcg Tablet PO 100 mcg DAILY@0630 [place] Administration Lorazepam 0.5 mg 06/05/20 10:35 06/08/20 09:37 Lorazepam 0.5 Mg Tablet PO 0.5 mg TID [place] Administration Magnesium Hydroxide 30 ml 05/31/20 00:01 Milk Of Magnesia 30 Ml Oral.Susp PO Q24H PRN Constipation Nicotine Polacrilex 2 mg 05/31/20 00:01 Nicotine Polacrilex 2 Mg Gum BUCCAL Q2H PRN Nicotine Cravings Oxybutynin Chloride 10 mg 05/31/20 09:00 06/08/20 09:37 Oxybutynin Chloride Er 5 Mg Tab.Er.24 PO 10 mg DAILY [place] Administration Propranolol HCl 20 mg 06/02/20 21:00 06/08/20 13:42 Propranolol Hcl 10 Mg Tablet PO 20 mg TID@0830,1330,2100 [place] Administration Protocol Quetiapine Fumarate 50 mg 05/31/20 00:01 06/06/20 13:53 Quetiapine Fumarate 50 Mg Tablet PO 50 mg Q4H PRN Administration anxiety/restlessness Sertraline HCl 25 mg 06/08/20 09:00 06/08/20 09:36 Sertraline Hcl 50 Mg Tablet PO 25 mg DAILY [place] Administration Trazodone HCl 50 mg 06/01/20 11:41 06/06/20 23:23 Trazodone Hcl 50 Mg Tablet PO 50 mg BEDTIME PRN Administration Insomnia Allergies Allergies Allergy/AdvReac Type Severity Reaction Status Date / Time No Known Allergies Allergy Unverified 05/17/20 19:50 [No Known Allergies*] Assessment & Plan Assessment & Plan (1) OCD (obsessive compulsive disorder): Status: Acute Code(s): F42.9 - Obsessive-compulsive disorder, unspecified (2) Bipolar 1 disorder, mixed: Status: Acute Code(s): F31.60 - Bipolar disorder, current episode mixed, unspecified Assessment and Plan: .. Discontinue Sertraline increase Clozaril to 250 mg increase Depakote 1500 mg patient needs much reassurance obsessional E ruminating monitor given agitation Greater than 50% of the session was spent on counseling and/or coordination of care
[2020-06-08 18:00] VITALS: BP 104/71; PULSE 102; TEMP 36.4
[2020-06-08] MEDS: Divalproex Sodium ER 250 MG TAB.ER.24H 1250 MG PO (21:59)
[2020-06-08] MEDS: cloZAPine 25 MG TABLET PO (22:01)
[2020-06-08] MEDS: cloZAPine 100 MG TABLET 200 MG PO (22:01)
[2020-06-08 23:11] LABS: Clozapine (Clozaril) 419 mcg/L; Norclozapine 111 mcg/L (25-400)
[2020-06-08] MEDS: traZODone HCL 50 MG TABLET PO (23:52)
[2020-06-08] MEDS: QUEtiapine Fumarate 50 MG TABLET PO (23:52)
[2020-06-09] MEDS: Levothyroxine Sodium 100 MCG TABLET PO (06:52)
[2020-06-09] MEDS: LORazepam 0.5 MG TABLET PO ×3 (09:13→21:08)
[2020-06-09 09:14] VITALS: BP 101/62; PULSE 84
[2020-06-09] MEDS: Sertraline HCL 50 MG TABLET 25 MG PO (09:14)
[2020-06-09] MEDS: Propranolol HCL 10 MG TABLET 20 MG PO ×3 (09:14→21:11)
[2020-06-09 10:20] LABS: Neut%MD 64.4 %; Neutrophils Absolute Auto 6.8 X10*3/uL (2.0-8.3); WBCANC 10.6 X10*3/uL
[2020-06-09 11:54] VITALS: BP 101/62; PULSE 84; TEMP 36.1
[2020-06-09 14:25] VITALS: PULSE 84
--- NOTE | 2020-06-09 19:35 | HO.PSYCHPN ---
Subjective Subjective Date of Service: 06/09/20 Reason For Visit: Mdd Subjective Notes: Conditional Voluntary Interim History: Dariela remains anxious and repetitive. She expressed difficulty with making decisions She was much more re-directable Medication Compliance: Yes Side effects from medications: No Attending Groups: Intermittent Review of Systems Acute medical concerns: No Medical Review of Systems: unchanged Mental Status Exam Mental Status Exam Narrative: dressed mostly appropriately odd affect, noted to have periods of severe agitation restlessness thought she would be better off denies active plan in this setting Patient Appearance: Disheveled and Appropriate Patient Orientation: Person, Place and Situation Level of Consciousness: Awake and Restless Patient Behavior: Cooperative, Hypersexual, Restless, Anxious, Fearful and Impulsive Mood Description: Withdrawn, Depressed, Anxious, Labile, Blunted and Angry Affect Description: Depressed, Anxious, Labile and Angry Patient Cognition Impaired: No Ability to Follow Directions: Fair Speech Pattern: Perseverating Memory Description: Episodic Impaired and Working Impaired Thought Process: Distracted Thought Content: positive for Circumstantial, positive for Preoccupation, negative for Suicidal Ideation and negative for Homicidal Ideation Judgement: Poor Diagnostics Vital Signs (24Hr): Vital Signs - 24 hr 06/09/20 09:14 06/09/20 11:54 06/09/20 14:25 Temperature 96.9 F Pulse Rate 84 84 84 Blood Pressure 101/62 101/62 Body Mass Index 32.9 Labs Results: 05/24/20 09:20 05/11/20 08:02 Labs: Laboratory Results - last 48 hr 06/04/20 06/09/20 09:51 09:39 Absolute Neuts (auto) 6.8 Clozapine 419 Norclozapine 111 Medications Medications Current Medications Generic Name Dose Route Start Last Admin Trade Name Freq PRN Reason Stop Dose Admin Acetaminophen 650 mg 05/31/20 00:01 06/03/20 09:15 Acetaminophen 325 Mg Tablet PO 650 mg Q6H PRN Administration Pain, Mild (Pain Scale 1-3) Al Hydroxide/Mg Hydroxide 30 ml 05/31/20 00:01 Magnesium Hydrox/Alum Hydrox 30 Ml Oral.Susp PO Q6H PRN Heartburn/nausea Clozapine 200 mg 06/07/20 21:00 06/08/20 22:01 Clozapine 100 Mg Tablet PO 200 mg BEDTIME [place] Administration Clozapine 25 mg 06/07/20 21:00 06/08/20 22:01 Clozapine 25 Mg Tablet PO 25 mg BEDTIME [place] Administration Divalproex Sodium 1,250 mg 06/07/20 21:00 06/08/20 21:59 Divalproex Sodium Er 250 Mg Tab.Er.24h PO 1,250 mg BEDTIME [place] Administration Hydroxyzine HCl 25 mg 05/31/20 21:00 06/03/20 00:38 Hydroxyzine Hcl 25 Mg Tablet PO 25 mg BEDTIME MRX1 PRN Administration NIGHT TIME ANXIETY Levothyroxine Sodium 100 mcg 05/31/20 06:30 06/09/20 06:52 Levothyroxine Sodium 100 Mcg Tablet PO 100 mcg DAILY@0630 [place] Administration Lorazepam 0.5 mg 06/05/20 10:35 06/09/20 14:25 Lorazepam 0.5 Mg Tablet PO 0.5 mg TID [place] Administration Magnesium Hydroxide 30 ml 05/31/20 00:01 Milk Of Magnesia 30 Ml Oral.Susp PO Q24H PRN Constipation Nicotine Polacrilex 2 mg 05/31/20 00:01 Nicotine Polacrilex 2 Mg Gum BUCCAL Q2H PRN Nicotine Cravings Oxybutynin Chloride 10 mg 05/31/20 09:00 06/09/20 09:13 Oxybutynin Chloride Er 5 Mg Tab.Er.24 PO 10 mg DAILY [place] Administration Propranolol HCl 20 mg 06/02/20 21:00 06/09/20 14:25 Propranolol Hcl 10 Mg Tablet PO 20 mg TID@0830,1330,2100 [place] Administration Protocol Quetiapine Fumarate 50 mg 05/31/20 00:01 06/08/20 23:52 Quetiapine Fumarate 50 Mg Tablet PO 50 mg Q4H PRN Administration anxiety/restlessness Sertraline HCl 25 mg 06/08/20 09:00 06/09/20 09:14 Sertraline Hcl 50 Mg Tablet PO 25 mg DAILY [place] Administration Trazodone HCl 50 mg 06/01/20 11:41 06/08/20 23:52 Trazodone Hcl 50 Mg Tablet PO 50 mg BEDTIME PRN Administration Insomnia Allergies Allergies Allergy/AdvReac Type Severity Reaction Status Date / Time No Known Allergies Allergy Unverified 05/17/20 19:50 [No Known Allergies*] Assessment & Plan Assessment & Plan (1) OCD (obsessive compulsive disorder): Status: Acute Code(s): F42.9 - Obsessive-compulsive disorder, unspecified Assessment and Plan: CT medications (2) Bipolar 1 disorder, mixed: Status: Acute Code(s): F31.60 - Bipolar disorder, current episode mixed, unspecified Assessment and Plan: CT same medications Greater than 50% of the session was spent on counseling and/or coordination of care Patient educated on: diagnosis and medication risk/benefits Informed Consent: further education needed Reason for contiued inpatient stay Substantial Risk for: rapid decompensation
[2020-06-09] MEDS: Divalproex Sodium ER 250 MG TAB.ER.24H 1250 MG PO (21:06)
[2020-06-09] MEDS: cloZAPine 100 MG TABLET 200 MG PO (21:10)
[2020-06-09] MEDS: cloZAPine 25 MG TABLET PO (21:10)
[2020-06-09 21:11] VITALS: BP 140/82; PULSE 89
[2020-06-09 21:13] VITALS: BP 140/82; PULSE 89; TEMP 36.9; O2SAT 95
[2020-06-10] MEDS: Levothyroxine Sodium 100 MCG TABLET PO (06:32)
[2020-06-10 07:24] VITALS: BP 109/68; PULSE 85; TEMP 36.7
[2020-06-10] MEDS: Sertraline HCL 50 MG TABLET 25 MG PO (08:59)
[2020-06-10] MEDS: LORazepam 0.5 MG TABLET PO ×3 (09:00→20:52)
[2020-06-10 09:01] VITALS: BP 109/68; PULSE 85
[2020-06-10] MEDS: Propranolol HCL 10 MG TABLET 20 MG PO ×3 (09:01→20:52)
[2020-06-10] MEDS: QUEtiapine Fumarate 50 MG TABLET PO ×2 (11:41→23:45)
[2020-06-10 14:03] VITALS: PULSE 84
--- NOTE | 2020-06-10 19:27 | P.PNPSI_ITS ---
Subjective Subjective Date of Service: 06/10/20 Reason For Visit: Mdd Subjective Notes: Conditional Voluntary Interim History: Dariela remains anxious and repetitive. She expressed difficulty with making decisions She was considerably more agitated than yesterday and she was pacing the halls needing a lot of reassurance from staff. Medication Compliance: Yes Side effects from medications: No Attending Groups: Intermittent Review of Systems Acute medical concerns: No Medical Review of Systems: unchanged Review of Systems Review of Systems Yes all other systems are reviewed and are negative Mental Status Exam Mental Status Exam Narrative: dressed mostly appropriately odd affect, noted to have periods of severe agitation restlessness thought she would be better off denies active plan in this setting Patient Appearance: Disheveled and Appropriate Patient Orientation: Person, Place and Situation Level of Consciousness: Awake and Restless Patient Behavior: Cooperative, Restless, Anxious, Fearful and Impulsive Mood Description: Depressed, Anxious, Labile, Blunted and Angry Affect Description: Depressed, Anxious, Labile, Angry and Apprehensive Patient Cognition Impaired: No Ability to Follow Directions: Fair Speech Pattern: Perseverating and Pressured Memory Description: Episodic Impaired and Working Impaired Delusions: Not Present Thought Process: Distracted Thought Content: positive for Circumstantial, positive for Preoccupation, negative for Suicidal Ideation and negative for Homicidal Ideation Depressive Symptoms: Increased Anxiety Judgement: Poor Diagnostics Vital Signs (24Hr): Vital Signs - 24 hr 06/09/20 21:11 06/09/20 21:13 06/10/20 07:24 Temperature 98.5 F 98.0 F Pulse Rate 89 89 85 Blood Pressure 140/82 H 140/82 H 109/68 Pulse Oximetry 95 06/10/20 09:01 06/10/20 14:03 Temperature Pulse Rate 85 84 Blood Pressure 109/68 Pulse Oximetry Body Mass Index 32.9 Labs Results: 05/24/20 09:20 05/11/20 08:02 Labs: Laboratory Results - last 48 hr 06/04/20 06/09/20 09:51 09:39 Absolute Neuts (auto) 6.8 Clozapine 419 Norclozapine 111 Medications Medications Current Medications Generic Name Dose Route Start Last Admin Trade Name Freq PRN Reason Stop Dose Admin Acetaminophen 650 mg 05/31/20 00:01 06/03/20 09:15 Acetaminophen 325 Mg Tablet PO 650 mg Q6H PRN Administration Pain, Mild (Pain Scale 1-3) Al Hydroxide/Mg Hydroxide 30 ml 05/31/20 00:01 Magnesium Hydrox/Alum Hydrox 30 Ml Oral.Susp PO Q6H PRN Heartburn/nausea Clozapine 200 mg 06/07/20 21:00 06/09/20 21:10 Clozapine 100 Mg Tablet PO 200 mg BEDTIME [place] Administration Clozapine 25 mg 06/07/20 21:00 06/09/20 21:10 Clozapine 25 Mg Tablet PO 25 mg BEDTIME [place] Administration Divalproex Sodium 1,250 mg 06/07/20 21:00 06/09/20 21:06 Divalproex Sodium Er 250 Mg Tab.Er.24h PO 1,250 mg BEDTIME [place] Administration Hydroxyzine HCl 25 mg 05/31/20 21:00 06/03/20 00:38 Hydroxyzine Hcl 25 Mg Tablet PO 25 mg BEDTIME MRX1 PRN Administration NIGHT TIME ANXIETY Levothyroxine Sodium 100 mcg 05/31/20 06:30 06/10/20 06:32 Levothyroxine Sodium 100 Mcg Tablet PO 100 mcg DAILY@0630 [place] Administration Lorazepam 0.5 mg 06/10/20 15:00 06/10/20 14:02 Lorazepam 0.5 Mg Tablet PO 0.5 mg TID [place] Administration Magnesium Hydroxide 30 ml 05/31/20 00:01 Milk Of Magnesia 30 Ml Oral.Susp PO Q24H PRN Constipation Nicotine Polacrilex 2 mg 05/31/20 00:01 Nicotine Polacrilex 2 Mg Gum BUCCAL Q2H PRN Nicotine Cravings Oxybutynin Chloride 10 mg 05/31/20 09:00 06/10/20 09:00 Oxybutynin Chloride Er 5 Mg Tab.Er.24 PO 10 mg DAILY [place] Administration Propranolol HCl 20 mg 06/02/20 21:00 06/10/20 14:03 Propranolol Hcl 10 Mg Tablet PO 20 mg TID@0830,1330,2100 [place] Administration Protocol Quetiapine Fumarate 50 mg 05/31/20 00:01 06/10/20 11:41 Quetiapine Fumarate 50 Mg Tablet PO 50 mg Q4H PRN Administration anxiety/restlessness Sertraline HCl 25 mg 06/08/20 09:00 06/10/20 08:59 Sertraline Hcl 50 Mg Tablet PO 25 mg DAILY [place] Administration Trazodone HCl 50 mg 06/01/20 11:41 06/08/20 23:52 Trazodone Hcl 50 Mg Tablet PO 50 mg BEDTIME PRN Administration Insomnia Allergies Allergies Allergy/AdvReac Type Severity Reaction Status Date / Time No Known Allergies Allergy Unverified 05/17/20 19:50 [No Known Allergies*] Assessment & Plan Assessment & Plan (1) Bipolar 1 disorder, mixed: Status: Acute Code(s): F31.60 - Bipolar disorder, current episode mixed, unspecified Assessment and Plan: CT medication without change Education Liase with SW on DC (2) OCD (obsessive compulsive disorder): Status: Acute Code(s): F42.9 - Obsessive-compulsive disorder, unspecified Assessment and Plan: CT medication without change Skills Greater than 50% of the session was spent on counseling and/or coordination of care Patient educated on: diagnosis, medication risk/benefits and therapeutic str ategies Informed Consent: does not understand Reason for contiued inpatient stay Substantial Risk for: inability to function and rapid decompensation
[2020-06-10] MEDS: cloZAPine 25 MG TABLET PO (20:51)
[2020-06-10] MEDS: Divalproex Sodium ER 250 MG TAB.ER.24H 1250 MG PO (20:51)
[2020-06-10] MEDS: cloZAPine 100 MG TABLET 200 MG PO (20:51)
[2020-06-10 20:52] VITALS: BP 109/70; PULSE 88
[2020-06-10 21:02] VITALS: BP 109/70; PULSE 88; TEMP 37; O2SAT 98
[2020-06-10] MEDS: traZODone HCL 50 MG TABLET PO (23:14)
[2020-06-10] MEDS: hydrOXYzine HCL 25 MG TABLET PO (23:45)
[2020-06-11 06:00] VITALS: BP 115/59; PULSE 73; RESP 20; TEMP 36.8
[2020-06-11 06:45] VITALS: BP 115/59; PULSE 73; RESP 20; TEMP 36.8
[2020-06-11] MEDS: Levothyroxine Sodium 100 MCG TABLET PO (06:48)
[2020-06-11 09:06] VITALS: BP 115/59; PULSE 73
[2020-06-11] MEDS: Sertraline HCL 50 MG TABLET 25 MG PO (09:06)
[2020-06-11] MEDS: LORazepam 0.5 MG TABLET PO ×3 (09:06→22:11)
[2020-06-11] MEDS: Propranolol HCL 10 MG TABLET 20 MG PO ×3 (09:06→22:11)
[2020-06-11] MEDS: QUEtiapine Fumarate 50 MG TABLET PO (10:42)
[2020-06-11 13:24] VITALS: BP 135/85; PULSE 85
[2020-06-11 22:11] VITALS: BP 111/70; PULSE 85
[2020-06-11] MEDS: cloZAPine 25 MG TABLET PO (22:11)
[2020-06-11] MEDS: cloZAPine 100 MG TABLET 200 MG PO (22:11)
[2020-06-11] MEDS: Divalproex Sodium ER 250 MG TAB.ER.24H 1250 MG PO (22:11)
[2020-06-11 22:18] VITALS: BP 111/70; PULSE 85; TEMP 36.5
--- NOTE | 2020-06-11 23:03 | HO.PSYCHPN ---
Subjective Subjective Reason For Visit: Mdd Subjective Notes: Conditional Voluntary Interim History: patient irritable easily agitated irritable and angry limited ability to take an information Medication Compliance: Yes Attending Groups: Intermittent Mental Status Exam Mental Status Exam Narrative: dressed mostly appropriately odd affect, noted to have periods of severe agitation restlessness thought she would be better off denies active plan in this setting Patient Appearance: Disheveled and Appropriate Patient Orientation: Person, Place and Situation Level of Consciousness: Awake and Restless Patient Behavior: Cooperative, Restless, Anxious, Fearful and Impulsive Mood Description: Depressed, Anxious, Labile, Blunted and Angry Affect Description: Depressed, Anxious, Labile, Angry and Apprehensive Patient Cognition Impaired: No Ability to Follow Directions: Fair Speech Pattern: Perseverating and Pressured Memory Description: Episodic Impaired and Working Impaired Thought Content: positive for Obsessional Thoughts and positive for Preoccupation Depressive Symptoms: Increased Anxiety and Diff. Making Decisions Abnormal Motor Activity Signs and Symptoms: Agitation Judgement: Poor Judgement and Insight: limited insight and judgment Diagnostics Vital Signs (24Hr): Vital Signs - 24 hr 06/11/20 06:00 06/11/20 06:45 06/11/20 09:06 Temperature 98.2 F 98.2 F Pulse Rate 73 73 73 Respiratory Rate 20 20 Blood Pressure 115/59 L 115/59 L 115/59 L 06/11/20 13:24 06/11/20 22:11 06/11/20 22:18 Temperature 97.7 F Pulse Rate 85 85 85 Respiratory Rate Blood Pressure 135/85 111/70 111/70 Body Mass Index 32.9 Labs Results: 05/24/20 09:20 05/11/20 08:02 Medications Medications Current Medications Generic Name Dose Route Start Last Admin Trade Name Freq PRN Reason Stop Dose Admin Acetaminophen 650 mg 05/31/20 00:01 06/03/20 09:15 Acetaminophen 325 Mg Tablet PO 650 mg Q6H PRN Administration Pain, Mild (Pain Scale 1-3) Al Hydroxide/Mg Hydroxide 30 ml 05/31/20 00:01 Magnesium Hydrox/Alum Hydrox 30 Ml Oral.Susp PO Q6H PRN Heartburn/nausea Clozapine 200 mg 06/07/20 21:00 06/11/20 22:11 Clozapine 100 Mg Tablet PO 200 mg BEDTIME [place] Administration Clozapine 25 mg 06/07/20 21:00 06/11/20 22:11 Clozapine 25 Mg Tablet PO 25 mg BEDTIME [place] Administration Divalproex Sodium 1,250 mg 06/07/20 21:00 06/11/20 22:11 Divalproex Sodium Er 250 Mg Tab.Er.24h PO 1,250 mg BEDTIME [place] Administration Hydroxyzine HCl 25 mg 05/31/20 21:00 06/10/20 23:45 Hydroxyzine Hcl 25 Mg Tablet PO 25 mg BEDTIME MRX1 PRN Administration NIGHT TIME ANXIETY Levothyroxine Sodium 100 mcg 05/31/20 06:30 06/11/20 06:48 Levothyroxine Sodium 100 Mcg Tablet PO 100 mcg DAILY@0630 [place] Administration Lorazepam 0.5 mg 06/10/20 15:00 06/11/20 22:11 Lorazepam 0.5 Mg Tablet PO 0.5 mg TID [place] Administration Magnesium Hydroxide 30 ml 05/31/20 00:01 Milk Of Magnesia 30 Ml Oral.Susp PO Q24H PRN Constipation Nicotine Polacrilex 2 mg 05/31/20 00:01 Nicotine Polacrilex 2 Mg Gum BUCCAL Q2H PRN Nicotine Cravings Oxybutynin Chloride 10 mg 05/31/20 09:00 06/11/20 09:05 Oxybutynin Chloride Er 5 Mg Tab.Er.24 PO 10 mg DAILY [place] Administration Propranolol HCl 20 mg 06/02/20 21:00 06/11/20 22:11 Propranolol Hcl 10 Mg Tablet PO 20 mg TID@0830,1330,2100 [place] Administration Protocol Quetiapine Fumarate 50 mg 05/31/20 00:01 06/11/20 10:42 Quetiapine Fumarate 50 Mg Tablet PO 50 mg Q4H PRN Administration anxiety/restlessness Sertraline HCl 25 mg 06/08/20 09:00 06/11/20 09:06 Sertraline Hcl 50 Mg Tablet PO 25 mg DAILY [place] Administration Trazodone HCl 50 mg 06/01/20 11:41 06/10/20 23:14 Trazodone Hcl 50 Mg Tablet PO 50 mg BEDTIME PRN Administration Insomnia Allergies Allergies Allergy/AdvReac Type Severity Reaction Status Date / Time No Known Allergies Allergy Unverified 05/17/20 19:50 [No Known Allergies*] Assessment & Plan Assessment & Plan (1) Bipolar 1 disorder, mixed: Status: Acute Code(s): F31.60 - Bipolar disorder, current episode mixed, unspecified Assessment and Plan: increase Clozaril to 250 mg (2) OCD (obsessive compulsive disorder): Status: Acute Code(s): F42.9 - Obsessive-compulsive disorder, unspecified Assessment and Plan: CT medication without change Skills Greater than 50% of the session was spent on counseling and/or coordination of care
[2020-06-11] MEDS: traZODone HCL 50 MG TABLET PO (23:45)
[2020-06-11] MEDS: hydrOXYzine HCL 25 MG TABLET PO (23:45)
[2020-06-12] MEDS: Levothyroxine Sodium 100 MCG TABLET PO (05:47)
[2020-06-12 06:27] VITALS: BP 100/57; PULSE 75; RESP 18; TEMP 35.8; O2SAT 98
[2020-06-12 08:51] VITALS: BP 100/57; PULSE 75
[2020-06-12] MEDS: Sertraline HCL 50 MG TABLET 25 MG PO (08:51)
[2020-06-12] MEDS: Propranolol HCL 10 MG TABLET 20 MG PO ×3 (08:51→22:03)
[2020-06-12] MEDS: LORazepam 0.5 MG TABLET PO ×3 (08:52→21:59)
[2020-06-12] MEDS: QUEtiapine Fumarate 50 MG TABLET PO (10:27)
--- NOTE | 2020-06-12 12:25 | HO.PSYCHPN ---
Subjective Subjective Reason For Visit: Mdd Interim History: patient irritable easily agitated irritable and angry limited ability to take an information discussed with pt ect Mental Status Exam Mental Status Exam Narrative: dressed mostly appropriately odd affect, noted to have periods of severe agitation restlessness thought she would be better off denies active plan in this setting Patient Appearance: Disheveled and Appropriate Patient Orientation: Person, Place and Situation Level of Consciousness: Awake and Restless Patient Behavior: Cooperative, Restless, Anxious, Fearful and Impulsive Mood Description: Depressed, Anxious, Labile, Blunted and Angry Affect Description: Depressed, Anxious, Labile, Angry and Apprehensive Patient Cognition Impaired: No Ability to Follow Directions: Fair Speech Pattern: Perseverating and Pressured Memory Description: Episodic Impaired and Working Impaired Delusions: Not Present Thought Process: Distracted and Rumination Thought Content: positive for [place], positive for Obsessional Thoughts and positive for Perseveration Depressive Symptoms: Increased Anxiety, Increased Irritability, Feelings of Worthlessness and Thoughts of /Suicide Diagnostics Vital Signs (24Hr): Vital Signs - 24 hr 06/11/20 13:24 06/11/20 22:11 06/11/20 22:18 Temperature 97.7 F Pulse Rate 85 85 85 Respiratory Rate Blood Pressure 135/85 111/70 111/70 Pulse Oximetry 06/12/20 06:27 06/12/20 08:51 Temperature 96.5 F L Pulse Rate 75 75 Respiratory Rate 18 Blood Pressure 100/57 L 100/57 L Pulse Oximetry 98 Body Mass Index 32.9 Labs Results: 05/24/20 09:20 05/11/20 08:02 Medications Medications Current Medications Generic Name Dose Route Start Last Admin Trade Name Freq PRN Reason Stop Dose Admin Acetaminophen 650 mg 05/31/20 00:01 06/03/20 09:15 Acetaminophen 325 Mg Tablet PO 650 mg Q6H PRN Administration Pain, Mild (Pain Scale 1-3) Al Hydroxide/Mg Hydroxide 30 ml 05/31/20 00:01 Magnesium Hydrox/Alum Hydrox 30 Ml Oral.Susp PO Q6H PRN Heartburn/nausea Clozapine 200 mg 06/07/20 21:00 06/11/20 22:11 Clozapine 100 Mg Tablet PO 200 mg BEDTIME [place] Administration Clozapine 25 mg 06/07/20 21:00 06/11/20 22:11 Clozapine 25 Mg Tablet PO 25 mg BEDTIME [place] Administration Divalproex Sodium 1,250 mg 06/07/20 21:00 06/11/20 22:11 Divalproex Sodium Er 250 Mg Tab.Er.24h PO 1,250 mg BEDTIME [place] Administration Hydroxyzine HCl 25 mg 05/31/20 21:00 06/11/20 23:45 Hydroxyzine Hcl 25 Mg Tablet PO 25 mg BEDTIME MRX1 PRN Administration NIGHT TIME ANXIETY Levothyroxine Sodium 100 mcg 05/31/20 06:30 06/12/20 05:47 Levothyroxine Sodium 100 Mcg Tablet PO 100 mcg DAILY@0630 [place] Administration Lorazepam 0.5 mg 06/10/20 15:00 06/12/20 08:52 Lorazepam 0.5 Mg Tablet PO 0.5 mg TID [place] Administration Magnesium Hydroxide 30 ml 05/31/20 00:01 Milk Of Magnesia 30 Ml Oral.Susp PO Q24H PRN Constipation Nicotine Polacrilex 2 mg 05/31/20 00:01 Nicotine Polacrilex 2 Mg Gum BUCCAL Q2H PRN Nicotine Cravings Oxybutynin Chloride 10 mg 05/31/20 09:00 06/12/20 08:52 Oxybutynin Chloride Er 5 Mg Tab.Er.24 PO 10 mg DAILY [place] Administration Propranolol HCl 20 mg 06/02/20 21:00 06/12/20 08:51 Propranolol Hcl 10 Mg Tablet PO 20 mg TID@0830,1330,2100 [place] Administration Protocol Quetiapine Fumarate 50 mg 05/31/20 00:01 06/12/20 10:27 Quetiapine Fumarate 50 Mg Tablet PO 50 mg Q4H PRN Administration anxiety/restlessness Sertraline HCl 25 mg 06/08/20 09:00 06/12/20 08:51 Sertraline Hcl 50 Mg Tablet PO 25 mg DAILY [place] Administration Trazodone HCl 50 mg 06/01/20 11:41 06/11/20 23:45 Trazodone Hcl 50 Mg Tablet PO 50 mg BEDTIME PRN Administration Insomnia Allergies Allergies Allergy/AdvReac Type Severity Reaction Status Date / Time No Known Allergies Allergy Unverified 05/17/20 19:50 [No Known Allergies*] Assessment & Plan Assessment & Plan (1) OCD (obsessive compulsive disorder): Qualifiers: Obsessive-compulsive disorder type: mixed obsessional thoughts and acts Qualified Code(s): F42.2 - Mixed obsessional thoughts and acts Status: Acute Code(s): F42.9 - Obsessive-compulsive disorder, unspecified Assessment and Plan: CT medication without change Skills d/c sertraline sec to agitation (2) Bipolar 1 disorder, mixed: Status: Acute Code(s): F31.60 - Bipolar disorder, current episode mixed, unspecified Assessment and Plan: increase Clozaril to 250 mg Greater than 50% of the session was spent on counseling and/or coordination of care
[2020-06-12 13:08] VITALS: PULSE 104
[2020-06-12 18:00] VITALS: BP 97/67; PULSE 92; TEMP 36.1
[2020-06-12 22:03] VITALS: BP 115/77; PULSE 88
[2020-06-12] MEDS: cloZAPine 100 MG TABLET 200 MG PO (22:03)
[2020-06-12] MEDS: cloZAPine 25 MG TABLET PO (22:03)
[2020-06-12] MEDS: Divalproex Sodium ER 250 MG TAB.ER.24H 1250 MG PO (22:05)
[2020-06-12] MEDS: traZODone HCL 50 MG TABLET PO (23:23)
--- NOTE | 2020-06-13 | EEG_ITS ---
This is a 16-channel EEG with an EKG lead. The patient is reported awake during the tracing. Background EEG rhythm is 7 to 8 hertz, 5 to 50 microvolt posteriorly, lower amplitude fast anteriorly. Photic stimulation does not produce any significant driving. The patient transitioned into drowsiness during tracing. There was 1 left temporal sharp wave probably originating at T5 area. Cardiac lead does not reveal any significant abnormality. Hyperventilation is not performed. IMPRESSION: Mildly abnormal EEG suggestive of left temporal irritability. MD RUT Howard/[facility] / [id number]
--- NOTE | 2020-06-13 | CT_ITS ---
EXAMINATION: CT HEAD WITHOUT CONTRAST CLINICAL INFORMATION: Memory problems. Unusual psychiatric symptoms. COMPARISON: None TECHNIQUE: Contiguous axial imaging was performed from the skull base to vertex without intravenous administration of contrast. This CT examination was performed using dose optimization techniques as appropriate, variously including the following: *Automated exposure control *Adjustment of mA and/or kV according to patient size (this includes techniques or standardized protocols for targeted exams where dose is matched to indication/reason for exam; i.e. extremities or head) *Use of iterative reconstruction technique DLP: 772 mGy-cm FINDINGS: There is no evidence of acute intracranial hemorrhage or territorial infarction. No abnormal mass effect or midline shift is seen. Russell to white matter differentiation is well preserved. No extra-axial fluid collections are identified. The ventricles are normal in size. There is no abnormal attenuation within the brain parenchyma. The osseous structures and soft tissues are normal. The mastoid air cells and visualized portions of the paranasal sinuses are well aerated. IMPRESSION: Unremarkable exam.
[2020-06-13] MEDS: hydrOXYzine HCL 25 MG TABLET PO ×2 (00:02→23:44)
[2020-06-13] MEDS: Levothyroxine Sodium 100 MCG TABLET PO (06:26)
[2020-06-13 06:40] VITALS: BP 94/56; PULSE 87; RESP 20; TEMP 35.9; O2SAT 96
[2020-06-13 08:27] VITALS: BP 106/66; PULSE 87
[2020-06-13] MEDS: Propranolol HCL 10 MG TABLET 20 MG PO ×3 (08:27→21:52)
[2020-06-13] MEDS: Sertraline HCL 50 MG TABLET 25 MG PO (08:28)
[2020-06-13] MEDS: LORazepam 0.5 MG TABLET PO ×3 (08:29→21:52)
--- NOTE | 2020-06-13 10:28 | HO.PSYCHPN ---
Subjective Subjective Reason For Visit: Mdd Interim History: patient irritable easily agitated irritable and angry limited ability to take an information discussed with pt ect who wishes to start Mental Status Exam Mental Status Exam Narrative: dressed mostly appropriately odd affect, noted to have periods of severe agitation restlessness thought she would be better off denies active plan in this setting Patient Appearance: Disheveled and Appropriate Patient Orientation: Person, Place and Situation Level of Consciousness: Awake and Restless Patient Behavior: Cooperative, Restless, Anxious, Fearful and Impulsive Mood Description: Depressed, Anxious, Labile, Blunted and Angry Affect Description: Depressed, Anxious, Labile, Angry and Apprehensive Patient Cognition Impaired: No Ability to Follow Directions: Fair Speech Pattern: Perseverating and Pressured Memory Description: Episodic Impaired and Working Impaired Thought Process: Distracted and Rumination Thought Content: positive for Obsessional Thoughts and positive for Suicidal Ideation (passive ) Diagnostics Vital Signs (24Hr): Vital Signs - 24 hr 06/12/20 13:08 06/12/20 18:00 06/12/20 22:03 Temperature 97.0 F Pulse Rate 104 H 92 88 Respiratory Rate Blood Pressure 97/67 115/77 Pulse Oximetry 06/13/20 06:40 06/13/20 08:27 Temperature 96.6 F L Pulse Rate 87 87 Respiratory Rate 20 Blood Pressure 94/56 L 106/66 Pulse Oximetry 96 Body Mass Index 32.9 Labs Results: 05/24/20 09:20 05/11/20 08:02 Medications Medications Current Medications Generic Name Dose Route Start Last Admin Trade Name Freq PRN Reason Stop Dose Admin Acetaminophen 650 mg 05/31/20 00:01 06/03/20 09:15 Acetaminophen 325 Mg Tablet PO 650 mg Q6H PRN Administration Pain, Mild (Pain Scale 1-3) Al Hydroxide/Mg Hydroxide 30 ml 05/31/20 00:01 Magnesium Hydrox/Alum Hydrox 30 Ml Oral.Susp PO Q6H PRN Heartburn/nausea Clozapine 200 mg 06/07/20 21:00 06/12/20 22:03 Clozapine 100 Mg Tablet PO 200 mg BEDTIME [place] Administration Clozapine 50 mg 06/13/20 21:00 Clozapine 25 Mg Tablet PO BEDTIME [place] Divalproex Sodium 1,250 mg 06/07/20 21:00 06/12/20 22:05 Divalproex Sodium Er 250 Mg Tab.Er.24h PO 1,250 mg BEDTIME [place] Administration Hydroxyzine HCl 25 mg 05/31/20 21:00 06/13/20 00:02 Hydroxyzine Hcl 25 Mg Tablet PO 25 mg BEDTIME MRX1 PRN Administration NIGHT TIME ANXIETY Levothyroxine Sodium 100 mcg 05/31/20 06:30 06/13/20 06:26 Levothyroxine Sodium 100 Mcg Tablet PO 100 mcg DAILY@0630 [place] Administration Lorazepam 0.5 mg 06/10/20 15:00 06/13/20 08:29 Lorazepam 0.5 Mg Tablet PO 0.5 mg TID [place] Administration Magnesium Hydroxide 30 ml 05/31/20 00:01 Milk Of Magnesia 30 Ml Oral.Susp PO Q24H PRN Constipation Nicotine Polacrilex 2 mg 05/31/20 00:01 Nicotine Polacrilex 2 Mg Gum BUCCAL Q2H PRN Nicotine Cravings Oxybutynin Chloride 10 mg 05/31/20 09:00 06/13/20 08:29 Oxybutynin Chloride Er 5 Mg Tab.Er.24 PO 10 mg DAILY [place] Administration Propranolol HCl 20 mg 06/02/20 21:00 06/13/20 08:27 Propranolol Hcl 10 Mg Tablet PO 20 mg TID@0830,1330,2100 [place] Administration Protocol Quetiapine Fumarate 50 mg 05/31/20 00:01 06/12/20 10:27 Quetiapine Fumarate 50 Mg Tablet PO 50 mg Q4H PRN Administration anxiety/restlessness Sertraline HCl 25 mg 06/08/20 09:00 06/13/20 08:28 Sertraline Hcl 50 Mg Tablet PO 25 mg DAILY [place] Administration Trazodone HCl 50 mg 06/01/20 11:41 06/12/20 23:23 Trazodone Hcl 50 Mg Tablet PO 50 mg BEDTIME PRN Administration Insomnia Allergies Allergies Allergy/AdvReac Type Severity Reaction Status Date / Time No Known Allergies Allergy Unverified 05/17/20 19:50 [No Known Allergies*] Assessment & Plan Assessment & Plan (1) OCD (obsessive compulsive disorder): Qualifiers: Obsessive-compulsive disorder type: mixed obsessional thoughts and acts Qualified Code(s): F42.2 - Mixed obsessional thoughts and acts Status: Acute Code(s): F42.9 - Obsessive-compulsive disorder, unspecified (2) Bipolar 1 disorder, mixed: Status: Acute Code(s): F31.60 - Bipolar disorder, current episode mixed, unspecified Assessment and Plan: check EEG and head CT scan check neurology consult prior to ECT taper Depakote medical clearance for ECT patient did have neuro appt scheduled Greater than 50% of the session was spent on counseling and/or coordination of care
[2020-06-13 13:05] VITALS: PULSE 92
[2020-06-13] MEDS: Acetaminophen 325 MG TABLET 650 MG PO (15:28)
[2020-06-13 18:00] VITALS: BP 106/64; PULSE 96; TEMP 36.1
[2020-06-13 21:52] VITALS: BP 106/64; PULSE 96
[2020-06-13] MEDS: Divalproex Sodium ER 250 MG TAB.ER.24H 1250 MG PO (21:53)
[2020-06-13] MEDS: cloZAPine 25 MG TABLET 50 MG PO (21:54)
[2020-06-13] MEDS: cloZAPine 100 MG TABLET 200 MG PO (21:54)
[2020-06-13] MEDS: traZODone HCL 50 MG TABLET PO (23:44)
[2020-06-14 06:00] VITALS: BP 103/69; PULSE 84; TEMP 36.8
[2020-06-14] MEDS: Levothyroxine Sodium 100 MCG TABLET PO (06:45)
[2020-06-14 07:00] VITALS: BMI 32.8
[2020-06-14] MEDS: Sertraline HCL 50 MG TABLET 25 MG PO (09:06)
[2020-06-14 09:07] VITALS: BP 103/69; PULSE 84
[2020-06-14] MEDS: Propranolol HCL 10 MG TABLET 20 MG PO ×3 (09:07→21:11)
[2020-06-14] MEDS: LORazepam 0.5 MG TABLET PO ×3 (09:07→21:12)
[2020-06-14 13:01] VITALS: BP 103/69; PULSE 84
--- NOTE | 2020-06-14 15:13 | PM.NEUROPN ---
Subjective Subjective Interval History: 44 y/o woman with suspicion of seizure disorder. She has c/o a feeling of patel going through her body, towrds are head, and then getting dizzy or spacy. She denied any h/o passing out, falls, or unexplained accidents. She deined that she had seizures. She was admitted on psych floor with worsening of depressoin and other psych symptoms. Physical Exam Vital Signs: Vital Signs: Vital Signs Temp Pulse BP 06/14/20 13:01 84 103/69 06/14/20 09:07 84 103/69 06/14/20 06:00 98.3 F 84 103/69 06/13/20 21:52 96 106/64 06/13/20 18:00 96.9 F 96 106/64 Body Mass Index 32.8 Const: Other: Mental status examination: Normal attention, orientation, memory and affect Cranial Nerve examination: Pupils are equal, round and reactive to light. External ocular muscles are intact. Visual waters are full. Face is symmetrical. Facial sensations are normal. Tongue is midline. Palate elevates symmetrically. Shoulder shrugging is normal. Hearing to bedside conversation is normal. Motor examination: Normal muscle tone, bulk and strength, Deep tendon reflexes are 2+. Plantar reflexes are flexor bilaterally. Sensory examination: Normal light touch, pain, vibration and joint position senses. Cerebellar examination: Finger to nose is normal. Gait: Within normal limits. Speech: Normal. Extrapyramidal system: Within normal limits. Involuntary movements: None. Objective Data Labs CBC & Chem 7: 05/24/20 09:20 05/11/20 08:02 Echocardiogram Interpretation: EEG: Left temporal sharp wave CT brain: mild cortical frontoparietal atrophy Progress Note: A&P Fall Risk Details Current Medications: Current Medications Generic Name Dose Route Start Last Admin Trade Name Freq PRN Reason Stop Dose Admin Acetaminophen 650 mg 05/31/20 00:01 06/13/20 15:28 Acetaminophen 325 Mg Tablet PO 650 mg Q6H PRN Administration Pain, Mild (Pain Scale 1-3) Al Hydroxide/Mg Hydroxide 30 ml 05/31/20 00:01 Magnesium Hydrox/Alum Hydrox 30 Ml Oral.Susp PO Q6H PRN Heartburn/nausea Clozapine 200 mg 06/07/20 21:00 06/13/20 21:54 Clozapine 100 Mg Tablet PO 200 mg BEDTIME [place] Administration Clozapine 50 mg 06/13/20 21:00 06/13/20 21:54 Clozapine 25 Mg Tablet PO 50 mg BEDTIME [place] Administration Divalproex Sodium 1,250 mg 06/07/20 21:00 06/13/20 21:53 Divalproex Sodium Er 250 Mg Tab.Er.24h PO 1,250 mg BEDTIME [place] Administration Hydroxyzine HCl 25 mg 05/31/20 21:00 06/13/20 23:44 Hydroxyzine Hcl 25 Mg Tablet PO 25 mg BEDTIME MRX1 PRN Administration NIGHT TIME ANXIETY Levothyroxine Sodium 100 mcg 05/31/20 06:30 06/14/20 06:45 Levothyroxine Sodium 100 Mcg Tablet PO 100 mcg DAILY@0630 [place] Administration Lorazepam 0.5 mg 06/10/20 15:00 06/14/20 09:07 Lorazepam 0.5 Mg Tablet PO 0.5 mg TID [place] Administration Magnesium Hydroxide 30 ml 05/31/20 00:01 Milk Of Magnesia 30 Ml Oral.Susp PO Q24H PRN Constipation Nicotine Polacrilex 2 mg 05/31/20 00:01 Nicotine Polacrilex 2 Mg Gum BUCCAL Q2H PRN Nicotine Cravings Oxybutynin Chloride 10 mg 05/31/20 09:00 06/14/20 09:07 Oxybutynin Chloride Er 5 Mg Tab.Er.24 PO 10 mg DAILY [place] Administration Propranolol HCl 20 mg 06/02/20 21:00 06/14/20 13:01 Propranolol Hcl 10 Mg Tablet PO 20 mg TID@0830,1330,2100 [place] Administration Protocol Quetiapine Fumarate 50 mg 05/31/20 00:01 06/12/20 10:27 Quetiapine Fumarate 50 Mg Tablet PO 50 mg Q4H PRN Administration anxiety/restlessness Sertraline HCl 25 mg 06/08/20 09:00 06/14/20 09:06 Sertraline Hcl 50 Mg Tablet PO 25 mg DAILY [place] Administration Trazodone HCl 50 mg 06/01/20 11:41 06/13/20 23:44 Trazodone Hcl 50 Mg Tablet PO 50 mg BEDTIME PRN Administration Insomnia Time Spent With Patient Time: Impression: Complex partial seizure d/o Rec: make depakote 250mg bid, out pt f/u, may have ECT if needed Time with patient: less than 15 minutes
[2020-06-14] MEDS: Divalproex Sodium ER 250 MG TAB.ER.24H 1250 MG PO (21:05)
[2020-06-14] MEDS: cloZAPine 25 MG TABLET 50 MG PO (21:05)
[2020-06-14] MEDS: cloZAPine 100 MG TABLET 200 MG PO (21:10)
[2020-06-14 21:11] VITALS: BP 118/75; PULSE 85
[2020-06-14 21:15] VITALS: BP 118/75; PULSE 85; TEMP 36.7; O2SAT 97
--- NOTE | 2020-06-14 21:33 | HO.PSYCHPN ---
Subjective Subjective Reason For Visit: Mdd Subjective Notes: Conditional Voluntary Interim History: the patient continues to have periods of severe agitation and depression severe anxiety is Clozaril level 450 anxiety and mood instability continues is Medication Compliance: Yes Side effects from medications: Yes Attending Groups: Intermittent Mental Status Exam Mental Status Exam Narrative: odd affect, noted to have periods of severe agitation restlessness thought she would be better off denies active plan in this setting but clearly suffering difficulty taking an information Patient Appearance: Disheveled and Appropriate Patient Orientation: Person, Place and Situation Level of Consciousness: Awake and Restless Patient Behavior: Cooperative, Restless, Anxious, Fearful and Impulsive Mood Description: Depressed, Anxious, Labile, Blunted and Angry Affect Description: Depressed, Anxious, Labile, Angry and Apprehensive Patient Cognition Impaired: No Ability to Follow Directions: Fair Speech Pattern: Perseverating and Pressured Memory Description: Episodic Impaired and Working Impaired Thought Process: Distracted and Rumination Thought Content: positive for Obsessional Thoughts and positive for Suicidal Ideation (passive ) Diagnostics Vital Signs (24Hr): Vital Signs - 24 hr 06/13/20 21:52 06/14/20 06:00 06/14/20 09:07 Temperature 98.3 F Pulse Rate 96 84 84 Blood Pressure 106/64 103/69 103/69 Pulse Oximetry 06/14/20 13:01 06/14/20 21:11 06/14/20 21:15 Temperature 98.1 F Pulse Rate 84 85 85 Blood Pressure 103/69 118/75 118/75 Pulse Oximetry 97 Body Mass Index 32.8 Labs Results: 05/24/20 09:20 05/11/20 08:02 Medications Medications Current Medications Generic Name Dose Route Start Last Admin Trade Name Freq PRN Reason Stop Dose Admin Acetaminophen 650 mg 05/31/20 00:01 06/13/20 15:28 Acetaminophen 325 Mg Tablet PO 650 mg Q6H PRN Administration Pain, Mild (Pain Scale 1-3) Al Hydroxide/Mg Hydroxide 30 ml 05/31/20 00:01 Magnesium Hydrox/Alum Hydrox 30 Ml Oral.Susp PO Q6H PRN Heartburn/nausea Clozapine 200 mg 06/07/20 21:00 06/14/20 21:10 Clozapine 100 Mg Tablet PO 200 mg BEDTIME [place] Administration Clozapine 50 mg 06/13/20 21:00 06/14/20 21:05 Clozapine 25 Mg Tablet PO 50 mg BEDTIME [place] Administration Divalproex Sodium 1,250 mg 06/07/20 21:00 06/14/20 21:05 Divalproex Sodium Er 250 Mg Tab.Er.24h PO 1,250 mg BEDTIME [place] Administration Hydroxyzine HCl 25 mg 05/31/20 21:00 06/13/20 23:44 Hydroxyzine Hcl 25 Mg Tablet PO 25 mg BEDTIME MRX1 PRN Administration NIGHT TIME ANXIETY Levothyroxine Sodium 100 mcg 05/31/20 06:30 06/14/20 06:45 Levothyroxine Sodium 100 Mcg Tablet PO 100 mcg DAILY@0630 [place] Administration Lorazepam 0.5 mg 06/10/20 15:00 06/14/20 21:12 Lorazepam 0.5 Mg Tablet PO 0.5 mg TID [place] Administration Magnesium Hydroxide 30 ml 05/31/20 00:01 Milk Of Magnesia 30 Ml Oral.Susp PO Q24H PRN Constipation Nicotine Polacrilex 2 mg 05/31/20 00:01 Nicotine Polacrilex 2 Mg Gum BUCCAL Q2H PRN Nicotine Cravings Oxybutynin Chloride 10 mg 05/31/20 09:00 06/14/20 09:07 Oxybutynin Chloride Er 5 Mg Tab.Er.24 PO 10 mg DAILY [place] Administration Propranolol HCl 20 mg 06/02/20 21:00 06/14/20 21:11 Propranolol Hcl 10 Mg Tablet PO 20 mg TID@0830,1330,2100 [place] Administration Protocol Quetiapine Fumarate 50 mg 05/31/20 00:01 06/12/20 10:27 Quetiapine Fumarate 50 Mg Tablet PO 50 mg Q4H PRN Administration anxiety/restlessness Sertraline HCl 25 mg 06/08/20 09:00 06/14/20 09:06 Sertraline Hcl 50 Mg Tablet PO 25 mg DAILY [place] Administration Trazodone HCl 50 mg 06/01/20 11:41 06/13/20 23:44 Trazodone Hcl 50 Mg Tablet PO 50 mg BEDTIME PRN Administration Insomnia Allergies Allergies Allergy/AdvReac Type Severity Reaction Status Date / Time No Known Allergies Allergy Unverified 05/17/20 19:50 [No Known Allergies*] Assessment & Plan Assessment & Plan (1) OCD (obsessive compulsive disorder): Qualifiers: Obsessive-compulsive disorder type: mixed obsessional thoughts and acts Qualified Code(s): F42.2 - Mixed obsessional thoughts and acts Status: Acute Code(s): F42.9 - Obsessive-compulsive disorder, unspecified (2) Bipolar 1 disorder, mixed: Status: Acute Code(s): F31.60 - Bipolar disorder, current episode mixed, unspecified (3) Abnormal EEG: Status: Acute Code(s): R94.01 - Abnormal electroencephalogram [EEG] Assessment and Plan: Assessment & Plan (1) OCD (obsessive compulsive disorder): (2) Bipolar 1 disorder, mixed: Assessment and Plan: patient with abnormal EEG Clozaril level 450 increase Depakote hold on ECT but not a significant contraindications to ECT Greater than 50% of the session was spent on counseling and/or coordination of care
--- NOTE | 2020-06-14 22:35 | PC.NURSE ---
pt became dysregulated when wanting to wear a pair of hospital underwear and could not find any. when option of wearing a pair of her own from her suitcase offered pt became overwhelmed because ''i have 4 pair of panties but only 3 outfits'' pt persevered, became distraught, started with her deep breathing, sighs, ''i'm so frustrated'' ''i don't know what to do'' when hospital underwear found it took pt about 1 hour to calm self but then persevered on ''what happens if they run out again''
[2020-06-15 06:35] VITALS: BP 104/62; PULSE 81; RESP 20; TEMP 35.9; O2SAT 95
[2020-06-15] MEDS: Levothyroxine Sodium 100 MCG TABLET PO (06:41)
[2020-06-15] MEDS: LORazepam 0.5 MG TABLET PO ×2 (09:18→13:50)
[2020-06-15 09:19] VITALS: BP 104/62; PULSE 81
[2020-06-15] MEDS: Propranolol HCL 10 MG TABLET 20 MG PO ×3 (09:19→21:12)
[2020-06-15] MEDS: Sertraline HCL 50 MG TABLET 25 MG PO (09:19)
[2020-06-15 12:49] VITALS: BP 122/89; PULSE 94
[2020-06-15 18:00] VITALS: BP 108/68; PULSE 80; TEMP 36
[2020-06-15 21:12] VITALS: BP 108/68; PULSE 80
[2020-06-15] MEDS: Divalproex Sodium ER 250 MG TAB.ER.24H 1250 MG PO (21:12)
[2020-06-15] MEDS: cloZAPine 100 MG TABLET 200 MG PO (21:12)
[2020-06-15] MEDS: cloZAPine 25 MG TABLET 50 MG PO (21:12)
[2020-06-16 06:10] VITALS: BP 117/66; PULSE 85; RESP 18; TEMP 36.2
[2020-06-16] MEDS: Levothyroxine Sodium 100 MCG TABLET PO (06:40)
[2020-06-16 09:23] VITALS: BP 117/66; PULSE 85
[2020-06-16] MEDS: Propranolol HCL 10 MG TABLET 20 MG PO ×2 (09:23→21:36)
[2020-06-16] MEDS: Sertraline HCL 50 MG TABLET 25 MG PO (09:25)
[2020-06-16] MEDS: LORazepam 1 MG TABLET PO (12:22)
--- NOTE | 2020-06-16 12:39 | HO.PSYCHPN ---
Subjective Subjective Reason For Visit: Mdd Interim History: the patient continues to have periods of severe agitation and depression severe anxiety is Clozaril level 450 anxiety and mood instability continues this continues to be true recheck CBC in ANC recheck Clozaril level patient asking for ECT quite depressed agitated overwhelmed intrusive thoughts that she would be better Mental Status Exam Mental Status Exam Narrative: odd affect, noted to have periods of severe agitation restlessness thought she would be better off denies active plan in this setting but clearly suffering difficulty taking an information Patient Appearance: Disheveled and Appropriate Patient Orientation: Person, Place and Situation Level of Consciousness: Awake and Restless Patient Behavior: Cooperative, Restless, Anxious, Fearful and Impulsive Mood Description: Depressed, Anxious, Labile, Blunted and Angry Affect Description: Depressed, Anxious, Labile, Angry and Apprehensive Patient Cognition Impaired: No Ability to Follow Directions: Fair Speech Pattern: Perseverating and Pressured Memory Description: Episodic Impaired and Working Impaired Diagnostics Vital Signs (24Hr): Vital Signs - 24 hr 06/15/20 12:49 06/15/20 18:00 06/15/20 21:12 Temperature 96.8 F Pulse Rate 94 80 80 Respiratory Rate Blood Pressure 122/89 108/68 108/68 06/16/20 06:10 06/16/20 09:23 Temperature 97.1 F Pulse Rate 85 85 Respiratory Rate 18 Blood Pressure 117/66 117/66 Body Mass Index 32.8 Labs Results: 06/16/20 13:13 05/11/20 08:02 Medications Medications Current Medications Generic Name Dose Route Start Last Admin Trade Name Freq PRN Reason Stop Dose Admin Acetaminophen 650 mg 05/31/20 00:01 06/13/20 15:28 Acetaminophen 325 Mg Tablet PO 650 mg Q6H PRN Administration Pain, Mild (Pain Scale 1-3) Al Hydroxide/Mg Hydroxide 30 ml 05/31/20 00:01 Magnesium Hydrox/Alum Hydrox 30 Ml Oral.Susp PO Q6H PRN Heartburn/nausea Clozapine 200 mg 06/07/20 21:00 06/15/20 21:12 Clozapine 100 Mg Tablet PO 200 mg BEDTIME [place] Administration Clozapine 75 mg 06/16/20 21:00 Clozapine 25 Mg Tablet PO BEDTIME [place] Divalproex Sodium 1,500 mg 06/16/20 21:00 Divalproex Sodium Er 500 Mg Tab.Er.24h PO BEDTIME [place] Hydroxyzine HCl 25 mg 10/01/20 21:00 06/13/20 23:44 Hydroxyzine Hcl 25 Mg Tablet PO 25 mg BEDTIME MRX1 PRN Administration NIGHT TIME ANXIETY Levothyroxine Sodium 100 mcg 05/31/20 06:30 06/16/20 06:40 Levothyroxine Sodium 100 Mcg Tablet PO 100 mcg DAILY@0630 [place] Administration Lorazepam 1 mg 06/16/20 12:13 06/16/20 12:22 Lorazepam 1 Mg Tablet PO 06/16/20 12:14 1 mg ONCE ONE Administration Lorazepam 0.5 mg 06/16/20 12:14 Lorazepam 0.5 Mg Tablet PO TID PRN Anxiety Magnesium Hydroxide 30 ml 05/31/20 00:01 Milk Of Magnesia 30 Ml Oral.Susp PO Q24H PRN Constipation Nicotine Polacrilex 2 mg 05/31/20 00:01 Nicotine Polacrilex 2 Mg Gum BUCCAL Q2H PRN Nicotine Cravings Oxybutynin Chloride 10 mg 05/31/20 09:00 06/16/20 09:24 Oxybutynin Chloride Er 5 Mg Tab.Er.24 PO 10 mg DAILY [place] Administration Propranolol HCl 20 mg 06/02/20 21:00 06/16/20 09:23 Propranolol Hcl 10 Mg Tablet PO 20 mg TID@0830,1330,2100 [place] Administration Protocol Quetiapine Fumarate 50 mg 05/31/20 00:01 06/12/20 10:27 Quetiapine Fumarate 50 Mg Tablet PO 50 mg Q4H PRN Administration anxiety/restlessness Trazodone HCl 50 mg 06/01/20 11:41 06/13/20 23:44 Trazodone Hcl 50 Mg Tablet PO 50 mg BEDTIME PRN Administration Insomnia Allergies Allergies Allergy/AdvReac Type Severity Reaction Status Date / Time No Known Allergies Allergy Unverified 05/17/20 19:50 [No Known Allergies*] Assessment & Plan Assessment & Plan (1) OCD (obsessive compulsive disorder): Qualifiers: Obsessive-compulsive disorder type: mixed obsessional thoughts and acts Qualified Code(s): F42.2 - Mixed obsessional thoughts and acts Status: Acute Code(s): F42.9 - Obsessive-compulsive disorder, unspecified (2) Bipolar 1 disorder, mixed: Status: Acute Code(s): F31.60 - Bipolar disorder, current episode mixed, unspecified (3) Abnormal EEG: Status: Acute Code(s): R94.01 - Abnormal electroencephalogram [EEG] Assessment and Plan: Assessment & Plan (1) OCD (obsessive compulsive disorder): (2) Bipolar 1 disorder, mixed: Assessment and Plan: patient with abnormal EEG Clozaril level 450 increase Depakote hold on ECT but not a significant contraindications to ECT patient strongly wishes to consider ECT not stabilizing does not tolerate antidepressant Greater than 50% of the session was spent on counseling and/or coordination of care Reason for contiued inpatient stay Substantial Risk for: harm to self, inability to function and rapid decompensation
[2020-06-16 13:19] LABS: MANUAL DIFF FLAG NO
[2020-06-16 13:39] LABS: Basophils Absolute Auto 0.1 X10*3/uL (0.0-0.2); Basophils Percent Auto 0.5 % (0-2); Eosinophils Absolute Auto 0.6 X10*3/uL (0.0-0.4); Eosinophils Percent Auto 3.9 % (0-4); Hematocrit 41.8 % (37-47); Hemoglobin 13.9 g/dl (12.0-16.0); Imm Gran Abs Auto 0.06 X10*3/uL (0.00-0.03); Imm Gran Pct Auto 0.4 % (0.0-0.4); Lymphocytes Percent Auto 13.8 % (20-40); Mean Corpuscular HGB Conc 33.3 g/dl (31.0-35.0); Mean Corpuscular Volume 90.3 fL (80-98); Mean Platelet Volume 10.5 fL (9.4-12.3); Monocytes Absolute Auto 0.9 X10*3/uL (0.1-1.2); Monocytes Percent Auto 6.4 % (2-11); Neutrophils Absolute Auto 10.9 X10*3/uL (2.0-8.3); Platelet Count 345 X10*3/uL (160-400); Red Blood Count 4.63 X10*6/uL (4.20-5.50); Red Cell Distribution Width 13.2 % (11.0-16.0); White Blood Count 14.6 X10*3/uL (4.8-10.8)
[2020-06-16 14:02] LABS: Valproate 72.7 mcg/mL (50.0-100.0)
[2020-06-16 15:02] VITALS: BP 117/64; PULSE 68
[2020-06-16 16:46] VITALS: BP 127/80; PULSE 97; TEMP 36
[2020-06-16] MEDS: Acetaminophen 325 MG TABLET 650 MG PO (18:49)
[2020-06-16] MEDS: cloZAPine 100 MG TABLET 200 MG PO (21:34)
[2020-06-16] MEDS: cloZAPine 25 MG TABLET 75 MG PO (21:35)
[2020-06-16] MEDS: Divalproex Sodium ER 500 MG TAB.ER.24H 1500 MG PO (21:35)
[2020-06-16 21:36] VITALS: BP 110/74; PULSE 111
[2020-06-16] MEDS: traZODone HCL 50 MG TABLET PO (23:18)
--- NOTE | 2020-06-17 | ECG_ITS ---
Test Reason : MEDICATION CHANGE Blood Pressure : / mmHG Vent. Rate : 071 BPM Atrial Rate : 071 BPM P-R Int : 140 ms QRS Dur : 080 ms QT Int : 386 ms P-R-T Axes : 059 007 040 degrees QTc Int : 419 ms Normal sinus rhythm Normal ECG When compared with ECG of 11-MAY-2020 07:07, No significant change was found Referred By: Sudarshan Bryant Electronically Signed By:JOSELYN SHAVER MD
[2020-06-17 05:50] VITALS: BP 107/62; PULSE 91; RESP 20; TEMP 36.1
[2020-06-17] MEDS: Levothyroxine Sodium 100 MCG TABLET PO (06:51)
[2020-06-17 08:29] VITALS: BP 107/62; PULSE 91
[2020-06-17] MEDS: Propranolol HCL 10 MG TABLET 20 MG PO ×3 (08:29→21:45)
[2020-06-17] MEDS: LORazepam 0.5 MG TABLET PO ×3 (08:30→23:23)
[2020-06-17 13:41] VITALS: BP 142/92; PULSE 112
[2020-06-17 16:25] VITALS: BP 118/70; PULSE 89; TEMP 35.9
[2020-06-17] MEDS: cloZAPine 100 MG TABLET 200 MG PO (21:44)
[2020-06-17] MEDS: Divalproex Sodium ER 500 MG TAB.ER.24H 1500 MG PO (21:44)
[2020-06-17] MEDS: cloZAPine 25 MG TABLET 75 MG PO (21:44)
[2020-06-17 21:45] VITALS: BP 118/70; PULSE 89
[2020-06-17] MEDS: Acetaminophen 325 MG TABLET 650 MG PO (21:51)
--- NOTE | 2020-06-17 23:38 | HO.PSYCHPN ---
Subjective Subjective Reason For Visit: Mdd Interim History: the patient continues to have periods of severe agitation and depression severe anxiety is Clozaril level 450 anxiety and mood instability continues this continues to be true recheck CBC in ANC recheck Clozaril level patient asking for ECT quite depressed agitated overwhelmed intrusive thoughts that she would be better Mental Status Exam Mental Status Exam Narrative: odd affect, noted to have periods of severe agitation restlessness thought she would be better off denies active plan in this setting but clearly suffering difficulty taking an information Patient Appearance: Disheveled and Appropriate Patient Orientation: Person, Place and Situation Level of Consciousness: Awake and Restless Patient Behavior: Cooperative, Restless, Anxious, Fearful and Impulsive Mood Description: Depressed, Anxious, Labile, Blunted and Angry Affect Description: Depressed, Anxious, Labile, Angry and Apprehensive Patient Cognition Impaired: No Ability to Follow Directions: Fair Speech Pattern: Perseverating and Pressured Memory Description: Episodic Impaired and Working Impaired Diagnostics Vital Signs (24Hr): Vital Signs - 24 hr 06/17/20 05:50 06/17/20 08:29 06/17/20 13:41 Temperature 96.9 F Pulse Rate 91 91 112 H Respiratory Rate 20 Blood Pressure 107/62 107/62 142/92 H 06/17/20 16:25 06/17/20 21:45 Temperature 96.7 F L Pulse Rate 89 89 Respiratory Rate Blood Pressure 118/70 118/70 Body Mass Index 32.8 Labs Results: 06/18/20 07:44 05/11/20 08:02 Labs: Laboratory Results - last 48 hr 06/16/20 06/16/20 13:13 13:13 WBC 14.6 H RBC 4.63 Hgb 13.9 Hct 41.8 MCV 90.3 MCH 30.0 MCHC 33.3 RDW 13.2 Plt Count 345 MPV 10.5 Immature Gran % (Auto) 0.4 Neut % (Auto) 75.0 H Lymph % (Auto) 13.[address] [facility] % (Auto) 6.4 Eos % (Auto) 3.9 Baso % (Auto) 0.5 Lymph # (Auto) 2.0 [facility] # (Auto) 0.9 Eos # (Auto) 0.6 H Baso # (Auto) 0.1 Abs Immat Gran (auto) 0.06 H Absolute Neuts (auto) 10.9 H Absolute Nucleated RBC 0.000 Nucleated RBC % (auto) 0.0 Valproic Acid 72.7 Medications Medications Current Medications Generic Name Dose Route Start Last Admin Trade Name Freq PRN Reason Stop Dose Admin Acetaminophen 650 mg 05/31/20 00:01 06/17/20 21:51 Acetaminophen 325 Mg Tablet PO 650 mg Q6H PRN Administration Pain, Mild (Pain Scale 1-3) Al Hydroxide/Mg Hydroxide 30 ml 05/31/20 00:01 Magnesium Hydrox/Alum Hydrox 30 Ml Oral.Susp PO Q6H PRN Heartburn/nausea Clozapine 200 mg 06/07/20 21:00 06/17/20 21:44 Clozapine 100 Mg Tablet PO 200 mg BEDTIME [place] Administration Clozapine 75 mg 06/16/20 21:00 06/17/20 21:44 Clozapine 25 Mg Tablet PO 75 mg BEDTIME [place] Administration Divalproex Sodium 1,500 mg 06/16/20 21:00 06/17/20 21:44 Divalproex Sodium Er 500 Mg Tab.Er.24h PO 1,500 mg BEDTIME [place] Administration Hydroxyzine HCl 25 mg 05/31/20 21:00 06/13/20 23:44 Hydroxyzine Hcl 25 Mg Tablet PO 25 mg BEDTIME MRX1 PRN Administration NIGHT TIME ANXIETY Levothyroxine Sodium 100 mcg 05/31/20 06:30 06/17/20 06:51 Levothyroxine Sodium 100 Mcg Tablet PO 100 mcg DAILY@0630 [place] Administration Lorazepam 0.5 mg 06/16/20 12:14 06/17/20 23:23 Lorazepam 0.5 Mg Tablet PO 0.5 mg TID PRN Administration Anxiety Magnesium Hydroxide 30 ml 05/31/20 00:01 Milk Of Magnesia 30 Ml Oral.Susp PO Q24H PRN Constipation Nicotine Polacrilex 2 mg 05/31/20 00:01 Nicotine Polacrilex 2 Mg Gum BUCCAL Q2H PRN Nicotine Cravings Oxybutynin Chloride 10 mg 05/31/20 09:00 06/17/20 08:28 Oxybutynin Chloride Er 5 Mg Tab.Er.24 PO 10 mg DAILY [place] Administration Propranolol HCl 20 mg 06/02/20 21:00 06/17/20 21:45 Propranolol Hcl 10 Mg Tablet PO 20 mg TID@0830,1330,2100 [place] Administration Protocol Quetiapine Fumarate 50 mg 05/31/20 00:01 06/12/20 10:27 Quetiapine Fumarate 50 Mg Tablet PO 50 mg Q4H PRN Administration anxiety/restlessness Trazodone HCl 50 mg 06/01/20 11:41 06/16/20 23:18 Trazodone Hcl 50 Mg Tablet PO 50 mg BEDTIME PRN Administration Insomnia Allergies Allergies Allergy/AdvReac Type Severity Reaction Status Date / Time No Known Allergies Allergy Unverified 05/17/20 19:50 [No Known Allergies*] Assessment & Plan Assessment & Plan (1) OCD (obsessive compulsive disorder): Qualifiers: Obsessive-compulsive disorder type: mixed obsessional thoughts and acts Qualified Code(s): F42.2 - Mixed obsessional thoughts and acts Status: Acute Code(s): F42.9 - Obsessive-compulsive disorder, unspecified (2) Bipolar 1 disorder, mixed: Status: Acute Code(s): F31.60 - Bipolar disorder, current episode mixed, unspecified (3) Abnormal EEG: Status: Acute Code(s): R94.01 - Abnormal electroencephalogram [EEG] Assessment and Plan: Assessment & Plan (1) OCD (obsessive compulsive disorder): (2) Bipolar 1 disorder, mixed: Assessment and Plan: patient with abnormal EEG Clozaril level 450 increase Depakote hold on ECT but not a significant contraindications to ECT patient strongly wishes to consider ECT not stabilizing does not tolerate antidepressant Greater than 50% of the session was spent on counseling and/or coordination of care
[2020-06-18 06:22] VITALS: BP 93/60; PULSE 85; RESP 18; TEMP 36.1; O2SAT 97
[2020-06-18] MEDS: Levothyroxine Sodium 100 MCG TABLET PO (06:36)
[2020-06-18 07:48] LABS: MANUAL DIFF FLAG NO
[2020-06-18 07:54] LABS: Basophils Absolute Auto 0.1 X10*3/uL (0.0-0.2); Basophils Percent Auto 0.6 % (0-2); Eosinophils Absolute Auto 0.5 X10*3/uL (0.0-0.4); Eosinophils Percent Auto 5.3 % (0-4); Hematocrit 45.9 % (37-47); Hemoglobin 14.9 g/dl (12.0-16.0); Imm Gran Abs Auto 0.05 X10*3/uL (0.00-0.03); Imm Gran Pct Auto 0.5 % (0.0-0.4); Lymphocytes Absolute Auto 3.5 X10*3/uL (1.2-4.9); Lymphocytes Percent Auto 37.2 % (20-40); Mean Corpuscular HGB Conc 32.5 g/dl (31.0-35.0); Mean Corpuscular Hemoglobin 30.2 pg (27.0-33.0); Mean Corpuscular Volume 92.9 fL (80-98); Mean Platelet Volume 10.3 fL (9.4-12.3); Monocytes Absolute Auto 0.9 X10*3/uL (0.1-1.2); Monocytes Percent Auto 9.4 % (2-11); Neutrophils Absolute Auto 4.5 X10*3/uL (2.0-8.3); Platelet Count 303 X10*3/uL (160-400); Red Blood Count 4.94 X10*6/uL (4.20-5.50); Red Cell Distribution Width 13.4 % (11.0-16.0); White Blood Count 9.5 X10*3/uL (4.8-10.8)
[2020-06-18 09:01] VITALS: BP 93/60; PULSE 85
[2020-06-18] MEDS: Propranolol HCL 10 MG TABLET 20 MG PO ×3 (09:01→22:35)
--- NOTE | 2020-06-18 12:34 | PM.PSYDC ---
DS: Providers Provider Date of admission: 05/09/20 19:00 date of discharge 07/17/2020 Date of discharge: 07/17/20 Primary care physician: Kellee Dyer MD Attending physician on admission: Sudarshan Bryant Consults: the patient received medical consultation by the hospital service pre ECT which was unremarkable Attending physician on discharge: Sudarshan Bryant DS: Diagnosis Discharge Diagnosis (1) OCD (obsessive compulsive disorder): Status: Acute Problem details: obsessional thoughts causing severe anxiety (2) Bipolar 1 disorder, mixed: Status: Acute Problem details: Periods of marked mood lability agitation pacing restlessness DS: Medications Discharge Medications Home Medications: Home Medications Medication Instructions Recorded Confirmed levothyroxine 100 mcg PO DAILY 05/30/20 05/30/20 oxybutynin chloride 10 mg PO DAILY 05/30/20 05/30/20 Previous Rx's Medication Instructions Recorded benztropine 0.5 mg PO TID PRN 30 Days #90 tab 07/17/20 clozapine 200 mg PO DAILY@1800 30 Days #60 07/17/20 tab diazepam [Valium] 2 mg PO BID PRN #60 tab 07/17/20 divalproex 750 mg PO DAILY@1800 30 Days tab 07/17/20 ergocalciferol (vitamin D2) 1,250 mcg PO Q7D 30 Days #5 cap 07/17/20 [Vitamin D2] lamotrigine 25 mg PO BID 60 Days #120 tab 07/17/20 quetiapine 25 mg PO TID PRN 30 Days #90 tab 07/17/20 divalproex [Depakote ER] 750 mg PO DAILY 30 Days #90 tab 07/18/20 Discharge Plan Discharge Patient Disposition: Home, Self-Care Referrals: Lula Harmon, therapist, [facility] [Other] - 07/24/20 10:[address] Hanson, psychiatrist, [facility] [Other] - 07/25/20 1:30 pm Tk Meeks CSP cabin supervisor [Other] Community Support Program at [facility] [Other] (Tk Sanchez is the assigned Out Reach Worker and he has been in touch with your cousin Sayda. Sayda has a more direct ways to reach Mr Sanchez. ) Kellee Reno MD [Primary Care Provider] - 07/20/20 1:00 pm (via telephone) Discharge Medications: New divalproex 250 mg Tablet Extended Release 24 Hr 750 mg PO DAILY@1800 30 Days RF: 0 benztropine 0.5 mg tablet 0.5 mg PO TID PRN (Reason: Extrapyramidal Effects) 30 Days Qty: 90 RF: 0 clozapine 100 mg Tablet 200 mg PO DAILY@1800 30 Days Qty: 60 RF: 0 lamotrigine 25 mg Tablet 25 mg PO BID 60 Days Qty: 120 RF: 0 ergocalciferol (vitamin D2) [Vitamin D2] 1,250 mcg (50,000 unit) Capsule 1,250 mcg PO Q7D 30 Days Qty: 5 RF: 0 diazepam [Valium] 2 mg tablet 2 mg PO BID PRN (Reason: anxiety) Qty: 60 RF: 0 quetiapine 25 mg tablet 25 mg PO TID PRN (Reason: Anxiety/Restlessness) 30 Days Qty: 90 RF: 0 divalproex [Depakote ER] 250 mg tablet extended release 24 hr 750 mg PO DAILY 30 Days Qty: 90 RF: 0 Continued levothyroxine 100 mcg Tablet 100 mcg PO DAILY RF: 0 oxybutynin chloride 5 mg Tablet 10 mg PO DAILY RF: 0 Discontinued quetiapine 200 mg Tablet 200 mg PO BEDTIME RF: 0 divalproex 500 mg Tablet Extended Release 24 Hr 500 mg PO BID RF: 0 diazepam 10 mg Tablet 10 mg PO BID PRN (Reason: Anxiety) RF: 0 lurasidone 40 mg Tablet 40 mg PO DAILY RF: 0 Discharge Orders: Discharge Order (Routine); Ordered 07/17/20 Ordered By: Sudarshan Bryant Diet: advance to usual diet Activity on Discharge: As tolerated Stand Alone Forms: Community Support Discharge Date/Time: 07/17/20 16:05 Print Language: Ghanaian Other Ambulatory Orders: Complete Blood Count Auto Diff (Routine) Timeframe: 20200730 Facility: [facility] - Location: Laboratory Ordered By: Sudarshan Bryant Comprehensive Met. Panel (Routine) Timeframe: 20200723 Facility: [facility] - Location: Laboratory Ordered By: Sudarshan Bryant Thyroid Stimulating Hormone (Routine) Timeframe: 20200730 Facility: [facility] - Location: Laboratory Ordered By: Sudarshan Bryant Valproate (Routine) Timeframe: 20200723 Facility: [facility] - Location: Laboratory Ordered By: Sudarshan Bryant Visit Report Forms: Patient Portal Discharge page Care Plan Goals: stable mood decreased anxiety better understanding of depression and intrusive thoughts with coping strategies Health Concerns: bipolar disorder OCD 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 Plan of Treatment: clozapine Depakote Haldol was discontinued Seroquel as needed for anxiety Valium as needed for anxiety propranolol for tremor and anxiety psychiatric follow-up therapy follow-up please review material in Ghanaian on coping strategies for anxiety and depression Mental Status Exam Mental Status Exam Narrative: Has worries regarding her cousin mood flat Patient Appearance: Disheveled and Unkempt Patient Orientation: Person, Place and Situation Level of Consciousness: Awake and Appropriate Patient Behavior: Cooperative and Anxious Mood Description: Calm, Fearful (of losing control again), Blunted, Flat and Apprehensive Affect Description: Anxious, Flat and Apprehensive Patient Cognition Impaired: No Ability to Follow Directions: Fair Speech Pattern: Clear, Perseverating (less so) and Coherent Memory Description: Episodic Impaired and Working Impaired Delusions: Not Present Thought Process: Distracted Thought Content: positive for Obsessional Thoughts, negative for Suicidal Ideation and negative for Homicidal Ideation Depressive Symptoms: Increased Anxiety, Diff. Making Decisions and Feelings of Worthlessness Data Data Completed and Pending Completed studies during hospitalization [Text1]: 07/17/20 07/17/20 10:08 13:24 WBC 9.1 RBC 4.35 Hgb 13.3 Hct 40.0 MCV 92.0 MCH 30.6 MCHC 33.3 RDW 12.5 Plt Count 338 MPV 10.9 Immature Gran % (Auto) 0.4 Neut % (Auto) 66.2 Lymph % (Auto) 22.2 [place] % (Auto) 10.9 Eos % (Auto) 0.0 Baso % (Auto) 0.3 Lymph # (Auto) 2.0 [place] # (Auto) 1.0 Eos # (Auto) 0.0 Baso # (Auto) 0.0 Abs Immat Gran (auto) 0.04 H Absolute Neuts (auto) 5.5 6.0 Absolute Nucleated RBC 0.000 Nucleated RBC % (auto) 0.0 DS: Summary Hospital Course Hospital Course: the patient was admitted in a markedly agitated labile state yelling screaming intrusive running down the [place] stating frequently that she wishes she were . Severe anxiety racing thoughts with intense despair. Initially vague thought regarding the devil. No clear hallucinations The patient was initially started on Latuda for what was presumed to be bipolar depression had reportedly not done well on Risperdal had been on high dose Seroquel the patient was severely agitated and we did try a strategy of 2-300 mg of Seroquel at bedtime with 50 b.i.d. and 50 mg q.4h p.r.n. to the end of May became clear that the patient was not responding Because of her level of agitation she did require intermittently t.i.d. lorazepam And we did start Depakote as a mood stabilizing agent in May Synthroid was continued from her outpatient and meetings were held with the patient's cousin to try to coordinate care and get a better history. Eventually we did get records from [place] and the patient had had some response to ECT which was done by [facility] in [place] and the patient did have a course of ECT The patient did have a total of 9 treatments starting unilaterally and eventually changed to right temporal left frontal for a total of 9 treatments. This was complicated by the fact that she needed to remain on benzodiazepines and was on some amount of Depakote. We mostly were able to get adequate seizures and she showed a marked improvement in her level of agitation but remained flat and somewhat ruminating. Concurrently the patient was started on clozapine as she appeared to have failed a number of other antipsychotic trials as a mood stabilizing agent and for her level of agitation and obsessional thinking. Initially the patient's level of anxiety regarding her obsessional thinking which related to not knowing what to do what groups to go to or how to dress was severe and she needed constant reassurance and at times would become markedly agitated. Toward the end of her stay this did significantly improved but the thoughts were still there. She was educated regarding CBT was given a number of handouts in Ghanaian and we did discussed different strategies to manage her thinking processes. The patient did have an EEG in order to fully worker up neurologically head CT scan had been within normal limits. Patient did at times have some atypical symptoms and because of her long history of treatment resistant anxiety and mood instability and EEG was performed which did show significant sharp wave activity. This was discussed with Dr. Ma who agreed with the treatment with Depakote and he would follow the patient as an outpatient. We did have brief trials of antidepressants SSRIs and the patient responded with severe anxiety agitation and mood instability. The patient had been put briefly on Haldol because of agitation racing thoughts by on-call physician but this was eventually tapered and discontinued because of patient's concerns regarding EPS tremor. Lamotrigine was added for bipolar depression a and as a mood stabilizing agent and the patient did appear to tolerate this well. CBC chemistries were generally unremarkable vitamin-D was somewhat low TSH was in the normal range. See discharge med list decision was made not to do continuation ECT this could be reconsidered if patient destabilize is. Strongly urge therapist experienced an cognitive behavioral strategies for managing all anxiety symptoms patient clearly needs tools day treatment or adult day health would also be quite helpful in providing structure. [facility] referral was made during the hospital stay The patient was much more so social by the time of discharge. She was going to more groups was able to sit with other patients had developed a friendship ability to sit still and concentration had significantly improved was spending less time in bed Time Spent with Patient Time attestation: Total time spent providing and/or coordinating discharge services:
[2020-06-18 13:07] VITALS: BP 157/87; PULSE 99
[2020-06-18 13:11] VITALS: BP 157/87; PULSE 99
[2020-06-18] MEDS: QUEtiapine Fumarate 50 MG TABLET PO (18:56)
[2020-06-18 22:30] VITALS: BP 127/85; PULSE 101; TEMP 36.3
[2020-06-18] MEDS: cloZAPine 100 MG TABLET 200 MG PO (22:34)
[2020-06-18] MEDS: Divalproex Sodium ER 500 MG TAB.ER.24H 1500 MG PO (22:34)
[2020-06-18] MEDS: cloZAPine 25 MG TABLET 75 MG PO (22:34)
[2020-06-18 22:35] VITALS: BP 127/85; PULSE 101
[2020-06-18] MEDS: traZODone HCL 50 MG TABLET PO (23:28)
--- NOTE | 2020-06-18 23:32 | P.PNPSI_ITS ---
Subjective Subjective Reason For Visit: Mdd Interim History: the patient continues to have periods of severe agitation and depression severe anxiety is Clozaril level 450 anxiety and mood instability continues this continues to be true recheck CBC in ANC recheck Clozaril level patient asking for ECT quite depressed agitated overwhelmed intrusive thoughts that she would be better Mental Status Exam Mental Status Exam Narrative: odd affect, noted to have periods of severe agitation restlessness thought she would be better off denies active plan in this setting but clearly suffering difficulty taking an information Patient Appearance: Disheveled and Appropriate Patient Orientation: Person, Place and Situation Level of Consciousness: Awake and Restless Patient Behavior: Cooperative, Restless, Anxious, Fearful and Impulsive Mood Description: Depressed, Anxious, Labile, Blunted and Angry Affect Description: Depressed, Anxious, Labile, Angry and Apprehensive Patient Cognition Impaired: No Ability to Follow Directions: Fair Speech Pattern: Perseverating and Pressured Memory Description: Episodic Impaired and Working Impaired Diagnostics Vital Signs (24Hr): Vital Signs - 24 hr 06/18/20 06:22 06/18/20 09:01 06/18/20 13:07 Temperature 97 F Pulse Rate 85 85 99 Respiratory Rate 18 Blood Pressure 93/60 93/60 157/87 H Pulse Oximetry 97 06/18/20 13:11 06/18/20 22:35 Temperature Pulse Rate 99 101 H Respiratory Rate Blood Pressure 157/87 H 127/85 Pulse Oximetry Body Mass Index 32.8 Labs Results: 06/18/20 07:44 06/19/20 16:16 Labs: Laboratory Results - last 48 hr 06/18/20 06/18/20 07:44 07:44 WBC 9.5 RBC 4.94 Hgb 14.9 Hct 45.9 MCV 92.9 MCH 30.2 MCHC 32.5 RDW 13.4 Plt Count 303 MPV 10.3 Immature Gran % (Auto) 0.5 H Neut % (Auto) 47.0 Lymph % (Auto) 37.2 [place] % (Auto) 9.4 Eos % (Auto) 5.3 H Baso % (Auto) 0.6 Lymph # (Auto) 3.5 [place] # (Auto) 0.9 Eos # (Auto) 0.5 H Baso # (Auto) 0.1 Abs Immat Gran (auto) 0.05 H Absolute Neuts (auto) 4.5 Absolute Nucleated RBC 0.000 Nucleated RBC % (auto) 0.0 Valproic Acid 75.0 Medications Medications Current Medications Generic Name Dose Route Start Last Admin Trade Name Freq PRN Reason Stop Dose Admin Acetaminophen 650 mg 05/31/20 00:01 06/17/20 21:51 Acetaminophen 325 Mg Tablet PO 650 mg Q6H PRN Administration Pain, Mild (Pain Scale 1-3) Al Hydroxide/Mg Hydroxide 30 ml 05/31/20 00:01 Magnesium Hydrox/Alum Hydrox 30 Ml Oral.Susp PO Q6H PRN Heartburn/nausea Clozapine 200 mg 06/07/20 21:00 06/18/20 22:34 Clozapine 100 Mg Tablet PO 200 mg BEDTIME [place] Administration Clozapine 75 mg 06/16/20 21:00 06/18/20 22:34 Clozapine 25 Mg Tablet PO 75 mg BEDTIME [place] Administration Divalproex Sodium 1,500 mg 06/16/20 21:00 06/18/20 22:34 Divalproex Sodium Er 500 Mg Tab.Er.24h PO 1,500 mg BEDTIME [place] Administration Hydroxyzine HCl 25 mg 05/31/20 21:00 06/13/20 23:44 Hydroxyzine Hcl 25 Mg Tablet PO 25 mg BEDTIME MRX1 PRN Administration NIGHT TIME ANXIETY Levothyroxine Sodium 100 mcg 05/31/20 06:30 06/18/20 06:36 Levothyroxine Sodium 100 Mcg Tablet PO 100 mcg DAILY@0630 [place] Administration Lorazepam 0.5 mg 06/16/20 12:14 06/17/20 23:23 Lorazepam 0.5 Mg Tablet PO 0.5 mg TID PRN Administration Anxiety Magnesium Hydroxide 30 ml 05/31/20 00:01 Milk Of Magnesia 30 Ml Oral.Susp PO Q24H PRN Constipation Nicotine Polacrilex 2 mg 05/31/20 00:01 Nicotine Polacrilex 2 Mg Gum BUCCAL Q2H PRN Nicotine Cravings Oxybutynin Chloride 10 mg 05/31/20 09:00 06/18/20 08:59 Oxybutynin Chloride Er 5 Mg Tab.Er.24 PO 10 mg DAILY [place] Administration Propranolol HCl 20 mg 06/02/20 21:00 06/18/20 22:35 Propranolol Hcl 10 Mg Tablet PO 20 mg TID@0830,1330,2100 [place] Administration Protocol Quetiapine Fumarate 50 mg 05/31/20 00:01 06/18/20 18:56 Quetiapine Fumarate 50 Mg Tablet PO 50 mg Q4H PRN Administration anxiety/restlessness Trazodone HCl 50 mg 06/01/20 11:41 06/18/20 23:28 Trazodone Hcl 50 Mg Tablet PO 50 mg BEDTIME PRN Administration Insomnia Allergies Allergies Allergy/AdvReac Type Severity Reaction Status Date / Time No Known Allergies Allergy Unverified 05/17/20 19:50 [No Known Allergies*] Assessment & Plan Assessment & Plan (1) OCD (obsessive compulsive disorder): Qualifiers: Obsessive-compulsive disorder type: mixed obsessional thoughts and acts Qualified Code(s): F42.2 - Mixed obsessional thoughts and acts Status: Acute Code(s): F42.9 - Obsessive-compulsive disorder, unspecified (2) Bipolar 1 disorder, mixed: Status: Acute Code(s): F31.60 - Bipolar disorder, current episode mixed, unspecified (3) Abnormal EEG: Status: Acute Code(s): R94.01 - Abnormal electroencephalogram [EEG] Assessment and Plan: Assessment & Plan (1) OCD (obsessive compulsive disorder): (2) Bipolar 1 disorder, mixed: Assessment and Plan: patient with abnormal EEG Clozaril level 450 increase Depakote hold on ECT but not a significant contraindications to ECT patient strongly wishes to consider ECT not stabilizing does not tolerate antidepressant need medical clearance for ect Greater than 50% of the session was spent on counseling and/or coordination of care
[2020-06-19] VITALS (7 sets, daily range): BP systolic 108–132; BP diastolic 63–81; PULSE 79–100; RESP 20; TEMP 35.9–36.2
[2020-06-19] MEDS: QUEtiapine Fumarate 50 MG TABLET PO (00:04)
[2020-06-19] MEDS: LORazepam 0.5 MG TABLET PO (00:04)
[2020-06-19] MEDS: hydrOXYzine HCL 25 MG TABLET PO (00:04)
[2020-06-19] MEDS: Levothyroxine Sodium 100 MCG TABLET PO (06:40)
[2020-06-19] MEDS: Propranolol HCL 10 MG TABLET 20 MG PO ×3 (09:23→21:38)
--- NOTE | 2020-06-19 09:46 | PM.EVENT ---
Documented by User: rCistina Taveras NP 06/19/20 15:10 Event Note Event Note: Pre-ECT evaluation 44 year old women admitted to for psychiatric care. Medical evaluation was requested for ECT risk stratification. Alert and oriented Normal lung expansion Soft abdomen No focal deficits Patient has a history of ECT. She has no history of aortic stenosis, asthma, COPD, atrial fibrillation, coronary artery disease, diabetes, hypertension, ICD, anticoagulation, . EKG shows NSR with QTC 419. No medical contraindications noted at this time for ECT.
[2020-06-19 16:49] LABS: Alanine Aminotransferase 18 U/L (0-31); Albumin Level 4.1 g/dL (3.5-5.0); Alkaline Phosphatase 61 U/L (39-117); Anion Gap 14 (12-20); Aspartate Amino Transferase 15 U/L (5-31); Bilirubin Total 0.2 mg/dL (0.0-1.0); Blood Urea Nitrogen 18 mg/dL (9-16); Calcium 9.4 mg/dL (8.4-10.2); Carbon Dioxide 28 mmol/L (22-29); Chloride 103 mmol/L (96-108); Creatinine Clr Calc Pharmacy 83.6; Estimated Glomerular Filt Rate > 60; Glucose Random 99 mg/dL (60-115); Potassium 4.5 mmol/l (3.3-5.1); Sodium 140 mmol/L (135-145); Total Protein 6.9 g/dL (6.5-8.0)
[2020-06-19] MEDS: cloZAPine 100 MG TABLET 200 MG PO (21:39)
[2020-06-19] MEDS: Divalproex Sodium ER 500 MG TAB.ER.24H 1000 MG PO (21:39)
[2020-06-19] MEDS: cloZAPine 25 MG TABLET 75 MG PO (21:39)
--- NOTE | 2020-06-19 23:01 | P.PNPSI_ITS ---
Subjective Subjective Reason For Visit: Mdd Interim History: the patient continues to have periods of severe agitation and depression severe anxiety is Clozaril level 450 anxiety and mood instability continues this continues to be true recheck CBC in ANC recheck Clozaril level patient asking for ECT quite depressed agitated overwhelmed intrusive thoughts that she would be better agrees to schedule ect continues to ruminate Mental Status Exam Mental Status Exam Narrative: odd affect, noted to have periods of severe agitation restlessness thought she would be better off denies active plan in this setting but clearly suffering obssessional anxiety ruminating Patient Appearance: Disheveled and Appropriate Patient Orientation: Person, Place and Situation Level of Consciousness: Awake and Restless Patient Behavior: Cooperative, Restless, Anxious, Fearful and Impulsive Mood Description: Depressed, Anxious, Labile, Blunted and Angry Affect Description: Depressed, Anxious, Labile, Angry and Apprehensive Patient Cognition Impaired: No Ability to Follow Directions: Fair Speech Pattern: Perseverating and Pressured Memory Description: Episodic Impaired and Working Impaired Diagnostics Vital Signs (24Hr): Vital Signs - 24 hr 06/19/20 06:00 06/19/20 09:23 06/19/20 13:20 Temperature 96.6 F L Pulse Rate 79 79 100 Respiratory Rate 20 Blood Pressure 108/63 108/63 132/81 06/19/20 13:21 06/19/20 17:21 06/19/20 17:30 Temperature 97.2 F 97.2 F Pulse Rate 100 80 80 Respiratory Rate Blood Pressure 132/81 123/78 123/78 06/19/20 21:38 Temperature Pulse Rate 80 Respiratory Rate Blood Pressure 123/78 Body Mass Index 32.8 Labs Results: 06/18/20 07:44 06/19/20 16:16 Labs: Laboratory Results - last 48 hr 06/18/20 06/18/20 06/19/20 07:44 07:44 16:16 WBC 9.5 RBC 4.94 Hgb 14.9 Hct 45.9 MCV 92.9 MCH 30.2 MCHC 32.5 RDW 13.4 Plt Count 303 MPV 10.3 Immature Gran % (Auto) 0.5 H Neut % (Auto) 47.0 Lymph % (Auto) 37.2 [place] % (Auto) 9.4 Eos % (Auto) 5.3 H Baso % (Auto) 0.6 Lymph # (Auto) 3.5 [place] # (Auto) 0.9 Eos # (Auto) 0.5 H Baso # (Auto) 0.1 Abs Immat Gran (auto) 0.05 H Absolute Neuts (auto) 4.5 Absolute Nucleated RBC 0.000 Nucleated RBC % (auto) 0.0 Sodium 140 Potassium 4.5 Chloride 103 Carbon Dioxide 28 Anion Gap 14 BUN 18 H Creatinine 0.80 Estim Creat Clear Calc 83.6 Estimated GFR > 60 Random Glucose 99 Calcium 9.4 Total Bilirubin 0.2 AST 15 ALT 18 Alkaline Phosphatase 61 Total Protein 6.9 Albumin 4.1 Valproic Acid 75.0 Medications Medications Current Medications Generic Name Dose Route Start Last Admin Trade Name Freq PRN Reason Stop Dose Admin Acetaminophen 650 mg 05/31/20 00:01 06/17/20 21:51 Acetaminophen 325 Mg Tablet PO 650 mg Q6H PRN Administration Pain, Mild (Pain Scale 1-3) Al Hydroxide/Mg Hydroxide 30 ml 05/31/20 00:01 Magnesium Hydrox/Alum Hydrox 30 Ml Oral.Susp PO Q6H PRN Heartburn/nausea Clozapine 200 mg 06/07/20 21:00 06/19/20 21:39 Clozapine 100 Mg Tablet PO 200 mg BEDTIME [place] Administration Clozapine 75 mg 06/16/20 21:00 06/19/20 21:39 Clozapine 25 Mg Tablet PO 75 mg BEDTIME [place] Administration Divalproex Sodium 1,000 mg 06/19/20 21:00 06/19/20 21:39 Divalproex Sodium Er 500 Mg Tab.Er.24h PO 1,000 mg BEDTIME [place] Administration Hydroxyzine HCl 25 mg 05/31/20 21:00 06/19/20 00:04 Hydroxyzine Hcl 25 Mg Tablet PO 25 mg BEDTIME MRX1 PRN Administration NIGHT TIME ANXIETY Levothyroxine Sodium 100 mcg 05/31/20 06:30 06/19/20 06:40 Levothyroxine Sodium 100 Mcg Tablet PO 100 mcg DAILY@0630 [place] Administration Lorazepam 0.5 mg 06/16/20 12:14 06/19/20 00:04 Lorazepam 0.5 Mg Tablet PO 0.5 mg TID PRN Administration Anxiety Magnesium Hydroxide 30 ml 05/31/20 00:01 Milk Of Magnesia 30 Ml Oral.Susp PO Q24H PRN Constipation Nicotine Polacrilex 2 mg 05/31/20 00:01 Nicotine Polacrilex 2 Mg Gum BUCCAL Q2H PRN Nicotine Cravings Oxybutynin Chloride 10 mg 05/31/20 09:00 06/19/20 09:22 Oxybutynin Chloride Er 5 Mg Tab.Er.24 PO 10 mg DAILY [place] Administration Propranolol HCl 20 mg 06/02/20 21:00 06/19/20 21:38 Propranolol Hcl 10 Mg Tablet PO 20 mg TID@0830,1330,2100 [place] Administration Protocol Quetiapine Fumarate 50 mg 05/31/20 00:01 06/19/20 00:04 Quetiapine Fumarate 50 Mg Tablet PO 50 mg Q4H PRN Administration anxiety/restlessness Trazodone HCl 50 mg 06/01/20 11:41 06/18/20 23:28 Trazodone Hcl 50 Mg Tablet PO 50 mg BEDTIME PRN Administration Insomnia Allergies Allergies Allergy/AdvReac Type Severity Reaction Status Date / Time No Known Allergies Allergy Unverified 05/17/20 19:50 [No Known Allergies*] Assessment & Plan Assessment & Plan (1) OCD (obsessive compulsive disorder): Qualifiers: Obsessive-compulsive disorder type: mixed obsessional thoughts and acts Qualified Code(s): F42.2 - Mixed obsessional thoughts and acts Status: Acute Code(s): F42.9 - Obsessive-compulsive disorder, unspecified (2) Bipolar 1 disorder, mixed: Status: Acute Code(s): F31.60 - Bipolar disorder, current episode mixed, unspecified (3) Abnormal EEG: Status: Acute Code(s): R94.01 - Abnormal electroencephalogram [EEG] Assessment and Plan: Assessment & Plan (1) OCD (obsessive compulsive disorder): (2) Bipolar 1 disorder, mixed: Assessment and Plan: patient with abnormal EEG Clozaril level 450 increase Depakote hold on ECT but not a significant contraindications to ECT patient strongly wishes to consider ECT not stabilizing does not tolerate antidepressant need medical clearance for ect start tommorrow Greater than 50% of the session was spent on counseling and/or coordination of care
[2020-06-19 23:42] LABS: Clozapine (Clozaril) 451 mcg/L; Norclozapine 115 mcg/L (25-400)
[2020-06-20] VITALS (15 sets, daily range): BP systolic 100–165; BP diastolic 67–105; PULSE 71–104; RESP 16–20; TEMP 35.8–36.5; O2SAT 95–100; BMI 32.8
--- NOTE | 2020-06-20 07:21 | MHC.SHP ---
Pre-Procedural Eval Section A The patient is an INPATIENT: Yes Changes since office visit: Yes Patient answered all questions The History & Physical has been completed within 30 days and I have reviewed it.: Yes Section B Chief Complaint: Mdd Allergies: Allergies Allergy/AdvReac Type Severity Reaction Status Date / Time No Known Allergies Allergy Unverified 05/17/20 19:50 [No Known Allergies*] Plan Patient has been examined and remains a candidate for the planned procedure
--- NOTE | 2020-06-20 07:40 | HO.ANESPROP2 ---
[facility] Past Medical History Medical History Bipolar 1 disorder, mixed Hypothyroidism OCD (obsessive compulsive disorder) Social History Social History Smoking Status: Former smoker Packs Per Day: 1 Cigarettes Per Day: 20.0 Years Smoked: 15 Smoked in Last 30 Days: No Use of substances other than those prescribed or required for medical reasons: No Currently Displaying Signs/Symptoms of Drug Intoxication Withdrawal: No Advance Directives: No Advance Directives Information Provided: No Advance Directives on File: No Do you have thoughts of harming others: None Do you have a plan to hurt others: No Plan Recently lost weight without trying: Unsure Meds Allergies Allergy/AdvReac Type Severity Reaction Status Date / Time No Known Allergies Allergy Unverified 05/17/20 19:50 [No Known Allergies*] Home Medications Medication Instructions Recorded Confirmed Type diazepam 10 mg PO BID PRN 05/30/20 05/30/20 History divalproex 500 mg PO BID 05/30/20 05/30/20 History levothyroxine 100 mcg PO DAILY 05/30/20 05/30/20 History lurasidone 40 mg PO DAILY 05/30/20 05/30/20 History oxybutynin chloride 10 mg PO DAILY 05/30/20 05/30/20 History quetiapine 200 mg PO BEDTIME 05/30/20 05/30/20 History Exam Exam Date and Time: June 20, 2020 0740 Height,Weight and Vital Signs: Height 5 ft 1 in Weight 78.9 kg Last Vital Signs Temp 97.0 F 06/20/20 06:29 Pulse 88 06/20/20 06:29 Resp 18 06/20/20 06:29 BP 128/89 06/20/20 06:29 Pulse Ox 95 06/20/20 06:29 Pertinent Lab Results Pertinent Lab Results: Laboratory Tests 05/08/20 05/09/20 05/11/20 20:32 16:31 08:02 WBC RBC Hgb Hct MCV MCH MCHC RDW RDW Coeff of Jacob Plt Count MPV Immature Gran % (Auto) Neut % (Auto) Lymph % (Auto) Treasure % (Auto) Eos % (Auto) Baso % (Auto) Neut # (Auto) Lymph # (Auto) Treasure # (Auto) Eos # (Auto) Baso # (Auto) Abs Immat Gran (auto) Absolute Neuts (auto) Absolute Lymphs (auto) Absolute Monos (auto) Absolute Eos (auto) Absolute Basos (auto) Absolute Nucleated RBC Nucleated RBC % (auto) Absolute Neutrophils Sodium 140 Potassium 4.4 Chloride 106 Carbon Dioxide Bicarbonate 25 Anion Gap 13 BUN 14 Creatinine 0.83 Estimated Creat Clear 91.2 Estim Creat Clear Calc Estimated GFR Est GFR (Non-Af Amer) > 60 Random Glucose Fasting Glucose 91 Calcium 8.8 D Total Bilirubin 0.6 AST 11 ALT 12 Alkaline Phosphatase 54 D Total Protein 6.2 L Albumin 3.9 Vitamin B12 Folate Free T4 1.16 TSH 3rd Generation 1.08 Urine Opiates Screen NOT DETECTED Ur Barbiturates Screen NOT DETECTED Valproic Acid 50.6 Phencyclidine Screen NOT DETECTED Clozapine Norclozapine Ur Amphetamines Screen NOT DETECTED U Benzodiazepines Scrn POSITIVE H Urine Cocaine Screen NOT DETECTED U Cannabinoids Screen NOT DETECTED Coronavirus (PCR) NEGATIVE HIV 1&2 Antigen & Ab 05/11/20 05/11/20 05/16/20 08:02 08:02 12:00 WBC 7.4 Cancelled RBC 4.49 Cancelled Hgb 13.3 Cancelled Hct 40.6 Cancelled MCV 90.4 Cancelled MCH 29.6 Cancelled MCHC 32.8 Cancelled RDW RDW Coeff of Jacob 13.2 Cancelled Plt Count 288 Cancelled MPV 11.0 Cancelled Immature Gran % (Auto) 0.3 Cancelled Neut % (Auto) 51.9 Cancelled Lymph % (Auto) 35.4 Cancelled Treasure % (Auto) 11.6 H Cancelled Eos % (Auto) 0.1 Cancelled Baso % (Auto) 0.7 Cancelled Neut # (Auto) Lymph # (Auto) Treasure # (Auto) Eos # (Auto) Baso # (Auto) Abs Immat Gran (auto) 0.02 Cancelled Absolute Neuts (auto) Absolute Lymphs (auto) 2.6 Cancelled Absolute Monos (auto) 0.9 Cancelled Absolute Eos (auto) 0.0 Cancelled Absolute Basos (auto) 0.1 Cancelled Absolute Nucleated RBC 0.000 Cancelled Nucleated RBC % (auto) 0.0 Cancelled Absolute Neutrophils 3.9 Sodium Potassium Chloride Carbon Dioxide Bicarbonate Anion Gap BUN Creatinine Estimated Creat Clear Estim Creat Clear Calc Estimated GFR Est GFR (Non-Af Amer) Random Glucose Fasting Glucose Calcium Total Bilirubin AST ALT Alkaline Phosphatase Total Protein Albumin Vitamin B12 998 H Folate 15.9 Free T4 TSH 3rd Generation Urine Opiates Screen Ur Barbiturates Screen Valproic Acid Phencyclidine Screen Clozapine Norclozapine Ur Amphetamines Screen U Benzodiazepines Scrn Urine Cocaine Screen U Cannabinoids Screen Coronavirus (PCR) HIV 1&2 Antigen & Ab 05/17/20 05/18/20 05/23/20 07:52 07:16 08:00 WBC 7.8 RBC 4.47 Hgb 13.4 Hct 40.5 MCV 90.6 MCH 30.0 MCHC 33.1 RDW RDW Coeff of Jacob 13.0 Plt Count 278 MPV 10.8 Immature Gran % (Auto) 0.3 Neut % (Auto) 51.5 Lymph % (Auto) 33.5 Treasure % (Auto) 8.8 Eos % (Auto) 5.5 H Baso % (Auto) 0.4 Neut # (Auto) Lymph # (Auto) Treasure # (Auto) Eos # (Auto) Baso # (Auto) Abs Immat Gran (auto) 0.02 Absolute Neuts (auto) Absolute Lymphs (auto) 2.6 Absolute Monos (auto) 0.7 Absolute Eos (auto) 0.4 Absolute Basos (auto) 0.0 Absolute Nucleated RBC 0.000 Nucleated RBC % (auto) 0.0 Absolute Neutrophils 4.0 Sodium Potassium Chloride Carbon Dioxide Bicarbonate Anion Gap BUN Creatinine Estimated Creat Clear Estim Creat Clear Calc Estimated GFR Est GFR (Non-Af Amer) Random Glucose Fasting Glucose Calcium Total Bilirubin AST ALT Alkaline Phosphatase Total Protein Albumin Vitamin B12 Folate Free T4 TSH 3rd Generation Urine Opiates Screen Ur Barbiturates Screen Valproic Acid Phencyclidine Screen Clozapine Cancelled Norclozapine Cancelled Ur Amphetamines Screen U Benzodiazepines Scrn Urine Cocaine Screen U Cannabinoids Screen Coronavirus (PCR) HIV 1&2 Antigen & Ab NONREACTIVE 05/24/20 06/02/20 06/04/20 09:20 10:41 09:51 WBC 9.4 RBC Hgb Hct MCV MCH MCHC RDW RDW Coeff of Jacob Plt Count MPV Immature Gran % (Auto) Neut % (Auto) Lymph % (Auto) Treasure % (Auto) Eos % (Auto) Baso % (Auto) Neut # (Auto) 7.6 Lymph # (Auto) Treasure # (Auto) Eos # (Auto) Baso # (Auto) Abs Immat Gran (auto) Absolute Neuts (auto) Absolute Lymphs (auto) Absolute Monos (auto) Absolute Eos (auto) Absolute Basos (auto) Absolute Nucleated RBC Nucleated RBC % (auto) Absolute Neutrophils 5.3 Sodium Potassium Chloride Carbon Dioxide Bicarbonate Anion Gap BUN Creatinine Estimated Creat Clear Estim Creat Clear Calc Estimated GFR Est GFR (Non-Af Amer) Random Glucose Fasting Glucose Calcium Total Bilirubin AST ALT Alkaline Phosphatase Total Protein Albumin Vitamin B12 Folate Free T4 TSH 3rd Generation Urine Opiates Screen Ur Barbiturates Screen Valproic Acid Phencyclidine Screen Clozapine 419 Norclozapine 111 Ur Amphetamines Screen U Benzodiazepines Scrn Urine Cocaine Screen U Cannabinoids Screen Coronavirus (PCR) HIV 1&2 Antigen & Ab 06/09/20 06/14/20 06/16/20 09:39 06:57 13:13 WBC 14.6 H RBC 4.63 Hgb 13.9 Hct 41.8 MCV 90.3 MCH 30.0 MCHC 33.3 RDW 13.2 RDW Coeff of Jacob Plt Count 345 MPV 10.5 Immature Gran % (Auto) 0.4 Neut % (Auto) 75.0 H Lymph % (Auto) 13.8 L Treasure % (Auto) 6.4 Eos % (Auto) 3.9 Baso % (Auto) 0.5 Neut # (Auto) Lymph # (Auto) 2.0 Treasure # (Auto) 0.9 Eos # (Auto) 0.6 H Baso # (Auto) 0.1 Abs Immat Gran (auto) 0.06 H Absolute Neuts (auto) 6.8 10.9 H Absolute Lymphs (auto) Absolute Monos (auto) Absolute Eos (auto) Absolute Basos (auto) Absolute Nucleated RBC 0.000 Nucleated RBC % (auto) 0.0 Absolute Neutrophils Sodium Potassium Chloride Carbon Dioxide Bicarbonate Anion Gap BUN Creatinine Estimated Creat Clear Estim Creat Clear Calc Estimated GFR Est GFR (Non-Af Amer) Random Glucose Fasting Glucose Calcium Total Bilirubin AST ALT Alkaline Phosphatase Total Protein Albumin Vitamin B12 Folate Free T4 TSH 3rd Generation Urine Opiates Screen Ur Barbiturates Screen Valproic Acid Phencyclidine Screen Clozapine 451 Norclozapine 115 Ur Amphetamines Screen U Benzodiazepines Scrn Urine Cocaine Screen U Cannabinoids Screen Coronavirus (PCR) HIV 1&2 Antigen & Ab 06/16/20 06/18/20 06/18/20 13:13 07:44 07:44 WBC 9.5 RBC 4.94 Hgb 14.9 Hct 45.9 MCV 92.9 MCH 30.2 MCHC 32.5 RDW 13.4 RDW Coeff of Jacob Plt Count 303 MPV 10.3 Immature Gran % (Auto) 0.5 H Neut % (Auto) 47.0 Lymph % (Auto) 37.2 Treasure % (Auto) 9.4 Eos % (Auto) 5.3 H Baso % (Auto) 0.6 Neut # (Auto) Lymph # (Auto) 3.5 Treasure # (Auto) 0.9 Eos # (Auto) 0.5 H Baso # (Auto) 0.1 Abs Immat Gran (auto) 0.05 H Absolute Neuts (auto) 4.5 Absolute Lymphs (auto) Absolute Monos (auto) Absolute Eos (auto) Absolute Basos (auto) Absolute Nucleated RBC 0.000 Nucleated RBC % (auto) 0.0 Absolute Neutrophils Sodium Potassium Chloride Carbon Dioxide Bicarbonate Anion Gap BUN Creatinine Estimated Creat Clear Estim Creat Clear Calc Estimated GFR Est GFR (Non-Af Amer) Random Glucose Fasting Glucose Calcium Total Bilirubin AST ALT Alkaline Phosphatase Total Protein Albumin Vitamin B12 Folate Free T4 TSH 3rd Generation Urine Opiates Screen Ur Barbiturates Screen Valproic Acid 72.7 75.0 Phencyclidine Screen Clozapine Norclozapine Ur Amphetamines Screen U Benzodiazepines Scrn Urine Cocaine Screen U Cannabinoids Screen Coronavirus (PCR) HIV 1&2 Antigen & Ab 06/19/20 16:16 WBC RBC Hgb Hct MCV MCH MCHC RDW RDW Coeff of Jacob Plt Count MPV Immature Gran % (Auto) Neut % (Auto) Lymph % (Auto) Treasure % (Auto) Eos % (Auto) Baso % (Auto) Neut # (Auto) Lymph # (Auto) Treasure # (Auto) Eos # (Auto) Baso # (Auto) Abs Immat Gran (auto) Absolute Neuts (auto) Absolute Lymphs (auto) Absolute Monos (auto) Absolute Eos (auto) Absolute Basos (auto) Absolute Nucleated RBC Nucleated RBC % (auto) Absolute Neutrophils Sodium 140 Potassium 4.5 Chloride 103 Carbon Dioxide 28 Bicarbonate Anion Gap 14 BUN 18 H Creatinine 0.80 Estimated Creat Clear Estim Creat Clear Calc 83.6 Estimated GFR > 60 Est GFR (Non-Af Amer) Random Glucose 99 Fasting Glucose Calcium 9.4 Total Bilirubin 0.2 AST 15 ALT 18 Alkaline Phosphatase 61 Total Protein 6.9 Albumin 4.1 Vitamin B12 Folate Free T4 TSH 3rd Generation Urine Opiates Screen Ur Barbiturates Screen Valproic Acid Phencyclidine Screen Clozapine Norclozapine Ur Amphetamines Screen U Benzodiazepines Scrn Urine Cocaine Screen U Cannabinoids Screen Coronavirus (PCR) HIV 1&2 Antigen & Ab Airway Mallampati Class: II TM Dist: >3cm Neck ROM: Full Heart: RRR Lungs: CTA BL Assessment and Plan Assessment Anesthesia Assessment: Anesthesia Plan Discussed and Chart Reviewed Final Anesthetic Review NPO: Yes ASA Class: III Final Preanesthetic Review: Meds/Allgs Chart Reviewed and Consent Obtained/Reviewed Patient Risk: Intermediate Procedure Risk: Intermediate Anesthetic Plan Anesthetic Plan: GA Disposition: Standard PACU
--- NOTE | 2020-06-20 07:59 | HO.ECTPROC ---
ECT Procedure Note Diagnosis/Treatment Diagnosis: Bipolar disorder Current Treatment Number: 1 Treatment: Series Interval Clinical Notes: severe anxiety rumination and depression ECT Settings Device: THYMATRON DGx Electrode Placement: Right Unilateral Program/Pulse Width: 0.25 Energy Percent: 100 Seizure Duration By EEG (in seconds): 23 Medications Administration General Anesthetic: Etomidate (14) Muscle Relaxant: Succinylcholine (100) Ancillary Medications Analgesics: Torodol - Pre ECT (15) Anti-emetics: Zofran - Pre ECT (4) Miscillaneous Medications: Flumazenil (0.5) Airway Management Airway Management: Bag Mask Ventilation Treatment Recommendations Program/Pulse Width: 0.50 Energy Percent: 100 Notes: post op anxiety given versed 2 mg post and propofol 30 mg
[2020-06-20] MEDS: QUEtiapine Fumarate 50 MG TABLET PO (08:42)
[2020-06-20] MEDS: Levothyroxine Sodium 100 MCG TABLET PO (09:39)
[2020-06-20] MEDS: Propranolol HCL 10 MG TABLET 20 MG PO ×3 (09:39→21:40)
[2020-06-20 13:32] LABS: Clozapine (Clozaril) 289 mcg/L; Norclozapine 110 mcg/L (25-400)
[2020-06-20] MEDS: LORazepam 0.5 MG TABLET PO (20:09)
[2020-06-20] MEDS: Divalproex Sodium ER 500 MG TAB.ER.24H 1000 MG PO (21:39)
[2020-06-20] MEDS: cloZAPine 100 MG TABLET 200 MG PO (21:40)
[2020-06-20] MEDS: cloZAPine 25 MG TABLET 75 MG PO (21:40)
--- NOTE | 2020-06-20 22:45 | HO.PSYCHPN ---
Subjective Subjective Reason For Visit: Mdd Subjective Notes: Conditional Voluntary Interim History: pt tolerated 1 st ect note see ect note Medication Compliance: Yes Side effects from medications: Yes Mental Status Exam Mental Status Exam Narrative: odd affect, noted to have periods of severe agitation restlessness thought she would be better off denies active plan in this setting but clearly suffering obssessional anxiety ruminating Patient Appearance: Disheveled and Appropriate Patient Orientation: Person, Place and Situation Level of Consciousness: Awake and Restless Patient Behavior: Cooperative, Restless, Anxious, Fearful and Impulsive Mood Description: Depressed, Anxious, Labile, Blunted and Angry Affect Description: Depressed, Anxious, Labile, Angry and Apprehensive Patient Cognition Impaired: No Ability to Follow Directions: Fair Speech Pattern: Perseverating and Pressured Memory Description: Episodic Impaired and Working Impaired Diagnostics Vital Signs (24Hr): Vital Signs - 24 hr 06/20/20 06:10 06/20/20 06:18 06/20/20 06:29 Temperature 96.5 F L 96.5 F L 97.0 F Pulse Rate 103 H 103 H 88 Respiratory Rate 20 20 18 Blood Pressure 137/88 137/88 128/89 Pulse Oximetry 100 100 95 06/20/20 08:08 06/20/20 08:13 06/20/20 08:18 Temperature 97.7 F Pulse Rate 101 H 100 104 H Respiratory Rate 16 18 20 Blood Pressure 160/105 H 165/100 H 145/89 H Pulse Oximetry 97 95 96 06/20/20 08:23 06/20/20 08:38 06/20/20 08:53 Temperature 97.6 F Pulse Rate 95 94 82 Respiratory Rate 16 18 16 Blood Pressure 158/104 H 137/98 H 127/90 H Pulse Oximetry 98 97 97 06/20/20 09:39 06/20/20 09:43 06/20/20 11:13 Temperature 97.2 F 96.4 F L Pulse Rate 71 97 97 Respiratory Rate Blood Pressure 100/67 135/91 H 135/91 H Pulse Oximetry 99 99 06/20/20 13:13 06/20/20 18:00 06/20/20 21:40 Temperature 96.9 F Pulse Rate 97 102 H 102 H Respiratory Rate Blood Pressure 135/91 H 110/79 110/79 Pulse Oximetry Body Mass Index 32.8 Labs Results: 06/18/20 07:44 06/19/20 16:16 Labs: Laboratory Results - last 48 hr 06/14/20 06/16/20 06/19/20 06:57 13:13 16:16 Sodium 140 Potassium 4.5 Chloride 103 Carbon Dioxide 28 Anion Gap 14 BUN 18 H Creatinine 0.80 Estim Creat Clear Calc 83.6 Estimated GFR > 60 Random Glucose 99 Calcium 9.4 Total Bilirubin 0.2 AST 15 ALT 18 Alkaline Phosphatase 61 Total Protein 6.9 Albumin 4.1 Clozapine 451 289 Norclozapine 115 110 Medications Medications Current Medications Generic Name Dose Route Start Last Admin Trade Name Freq PRN Reason Stop Dose Admin Acetaminophen 650 mg 05/31/20 00:01 06/17/20 21:51 Acetaminophen 325 Mg Tablet PO 650 mg Q6H PRN Administration Pain, Mild (Pain Scale 1-3) Acetaminophen 650 mg 06/20/20 07:58 Acetaminophen 325 Mg Tablet PO ONCE PRN Pain, Mild (Pain Scale 1-3) Al Hydroxide/Mg Hydroxide 30 ml 05/31/20 00:01 Magnesium Hydrox/Alum Hydrox 30 Ml Oral.Susp PO Q6H PRN Heartburn/nausea Clozapine 200 mg 06/07/20 21:00 06/20/20 21:40 Clozapine 100 Mg Tablet PO 200 mg BEDTIME [place] Administration Clozapine 75 mg 06/16/20 21:00 06/20/20 21:40 Clozapine 25 Mg Tablet PO 75 mg BEDTIME [place] Administration Divalproex Sodium 1,000 mg 06/19/20 21:00 06/20/20 21:39 Divalproex Sodium Er 500 Mg Tab.Er.24h PO 1,000 mg BEDTIME [place] Administration Hydroxyzine HCl 25 mg 05/31/20 21:00 06/19/20 00:04 Hydroxyzine Hcl 25 Mg Tablet PO 25 mg BEDTIME MRX1 PRN Administration NIGHT TIME ANXIETY Levothyroxine Sodium 100 mcg 05/31/20 06:30 06/20/20 09:39 Levothyroxine Sodium 100 Mcg Tablet PO 100 mcg DAILY@0630 [place] Administration Lorazepam 0.5 mg 06/16/20 12:14 06/20/20 20:09 Lorazepam 0.5 Mg Tablet PO 0.5 mg TID PRN Administration Anxiety Magnesium Hydroxide 30 ml 05/31/20 00:01 Milk Of Magnesia 30 Ml Oral.Susp PO Q24H PRN Constipation Nicotine Polacrilex 2 mg 05/31/20 00:01 Nicotine Polacrilex 2 Mg Gum BUCCAL Q2H PRN Nicotine Cravings Oxybutynin Chloride 10 mg 05/31/20 09:00 06/20/20 09:39 Oxybutynin Chloride Er 5 Mg Tab.Er.24 PO 10 mg DAILY [place] Administration Propranolol HCl 20 mg 06/02/20 21:00 06/20/20 21:40 Propranolol Hcl 10 Mg Tablet PO 20 mg TID@0830,1330,2100 [place] Administration Protocol Quetiapine Fumarate 50 mg 05/31/20 00:01 06/19/20 00:04 Quetiapine Fumarate 50 Mg Tablet PO 50 mg Q4H PRN Administration anxiety/restlessness Trazodone HCl 50 mg 06/01/20 11:41 06/18/20 23:28 Trazodone Hcl 50 Mg Tablet PO 50 mg BEDTIME PRN Administration Insomnia Allergies Allergies Allergy/AdvReac Type Severity Reaction Status Date / Time No Known Allergies Allergy Unverified 05/17/20 19:50 [No Known Allergies*] Assessment & Plan Assessment & Plan (1) OCD (obsessive compulsive disorder): Qualifiers: Obsessive-compulsive disorder type: mixed obsessional thoughts and acts Qualified Code(s): F42.2 - Mixed obsessional thoughts and acts Status: Acute Code(s): F42.9 - Obsessive-compulsive disorder, unspecified (2) Bipolar 1 disorder, mixed: Status: Acute Code(s): F31.60 - Bipolar disorder, current episode mixed, unspecified (3) Abnormal EEG: Status: Acute Code(s): R94.01 - Abnormal electroencephalogram [EEG] Assessment and Plan: Assessment & Plan (1) OCD (obsessive compulsive disorder): (2) Bipolar 1 disorder, mixed: Assessment and Plan: ect started taper depakote Greater than 50% of the session was spent on counseling and/or coordination of care
[2020-06-21 06:00] VITALS: BP 108/71; PULSE 88; RESP 20; TEMP 36.2
[2020-06-21] MEDS: Levothyroxine Sodium 100 MCG TABLET PO (06:36)
[2020-06-21 07:00] VITALS: BMI 33.0
[2020-06-21 08:27] VITALS: BP 108/71; PULSE 88
[2020-06-21] MEDS: Propranolol HCL 10 MG TABLET 20 MG PO ×3 (08:27→21:29)
[2020-06-21] MEDS: QUEtiapine Fumarate 50 MG TABLET PO (11:27)
[2020-06-21] MEDS: LORazepam 0.5 MG TABLET PO (11:27)
[2020-06-21 13:42] VITALS: BP 120/68; PULSE 90
[2020-06-21] MEDS: Acetaminophen 325 MG TABLET 650 MG PO (13:44)
[2020-06-21 18:00] VITALS: BP 154/78; PULSE 98; TEMP 36.3
[2020-06-21] MEDS: cloZAPine 100 MG TABLET 200 MG PO (21:28)
[2020-06-21 21:29] VITALS: BP 154/78; PULSE 98
[2020-06-21] MEDS: cloZAPine 25 MG TABLET 75 MG PO (21:29)
--- NOTE | 2020-06-21 21:35 | HO.PSYCHPN ---
Subjective Subjective Reason For Visit: Mdd Subjective Notes: Conditional Voluntary Interim History: Patient obsessional anxious agitated and labile. 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 distraught and hopeless at time Medication Compliance: Yes Attending Groups: Intermittent Mental Status Exam Mental Status Exam Narrative: odd affect, noted to have periods of severe agitation restlessness thought she would be better off denies active plan in this setting but clearly suffering obssessional anxiety ruminating at times hypersexuul labile Patient Appearance: Disheveled and Appropriate Patient Orientation: Person, Place and Situation Level of Consciousness: Awake and Restless Patient Behavior: Cooperative, Restless, Anxious, Fearful and Impulsive Mood Description: Depressed, Anxious, Labile, Blunted and Angry Affect Description: Depressed, Anxious, Labile, Angry and Apprehensive Patient Cognition Impaired: No Ability to Follow Directions: Fair Speech Pattern: Perseverating and Pressured Memory Description: Episodic Impaired and Working Impaired Diagnostics Vital Signs (24Hr): Vital Signs - 24 hr 06/20/20 21:40 06/21/20 06:00 06/21/20 08:27 Temperature 97.1 F Pulse Rate 102 H 88 88 Respiratory Rate 20 Blood Pressure 110/79 108/71 108/71 06/21/20 13:42 06/21/20 18:00 06/21/20 21:29 Temperature 97.3 F Pulse Rate 90 98 98 Respiratory Rate Blood Pressure 120/68 154/78 H 154/78 H Body Mass Index 33.0 Labs Results: 06/18/20 07:44 06/19/20 16:16 Labs: Laboratory Results - last 48 hr 06/14/20 06/16/20 06:57 13:13 Clozapine 451 289 Norclozapine 115 110 Medications Medications Current Medications Generic Name Dose Route Start Last Admin Trade Name Freq PRN Reason Stop Dose Admin Acetaminophen 650 mg 05/31/20 00:01 06/21/20 13:44 Acetaminophen 325 Mg Tablet PO 650 mg Q6H PRN Administration Pain, Mild (Pain Scale 1-3) Acetaminophen 650 mg 06/20/20 07:58 Acetaminophen 325 Mg Tablet PO ONCE PRN Pain, Mild (Pain Scale 1-3) Al Hydroxide/Mg Hydroxide 30 ml 05/31/20 00:01 Magnesium Hydrox/Alum Hydrox 30 Ml Oral.Susp PO Q6H PRN Heartburn/nausea Clozapine 200 mg 06/07/20 21:00 06/21/20 21:28 Clozapine 100 Mg Tablet PO 200 mg BEDTIME [place] Administration Clozapine 75 mg 06/16/20 21:00 06/21/20 21:29 Clozapine 25 Mg Tablet PO 75 mg BEDTIME [place] Administration Divalproex Sodium 500 mg 06/22/20 09:00 Divalproex Sodium Er 500 Mg Tab.Er.24h PO DAILY [place] Hydroxyzine HCl 25 mg 05/31/20 21:00 06/19/20 00:04 Hydroxyzine Hcl 25 Mg Tablet PO 25 mg BEDTIME MRX1 PRN Administration NIGHT TIME ANXIETY Levothyroxine Sodium 100 mcg 05/31/20 06:30 06/21/20 06:36 Levothyroxine Sodium 100 Mcg Tablet PO 100 mcg DAILY@0630 [place] Administration Magnesium Hydroxide 30 ml 05/31/20 00:01 Milk Of Magnesia 30 Ml Oral.Susp PO Q24H PRN Constipation Nicotine Polacrilex 2 mg 05/31/20 00:01 Nicotine Polacrilex 2 Mg Gum BUCCAL Q2H PRN Nicotine Cravings Oxybutynin Chloride 10 mg 05/31/20 09:00 06/21/20 08:28 Oxybutynin Chloride Er 5 Mg Tab.Er.24 PO 10 mg DAILY [place] Administration Propranolol HCl 20 mg 06/02/20 21:00 06/21/20 21:29 Propranolol Hcl 10 Mg Tablet PO 20 mg TID@0830,1330,2100 [place] Administration Protocol Quetiapine Fumarate 50 mg 05/31/20 00:01 06/21/20 11:27 Quetiapine Fumarate 50 Mg Tablet PO 50 mg Q4H PRN Administration anxiety/restlessness Trazodone HCl 50 mg 06/01/20 11:41 06/18/20 23:28 Trazodone Hcl 50 Mg Tablet PO 50 mg BEDTIME PRN Administration Insomnia Allergies Allergies Allergy/AdvReac Type Severity Reaction Status Date / Time No Known Allergies Allergy Unverified 05/17/20 19:50 [No Known Allergies*] Assessment & Plan Assessment & Plan (1) OCD (obsessive compulsive disorder): Qualifiers: Obsessive-compulsive disorder type: mixed obsessional thoughts and acts Qualified Code(s): F42.2 - Mixed obsessional thoughts and acts Status: Acute Code(s): F42.9 - Obsessive-compulsive disorder, unspecified (2) Bipolar 1 disorder, mixed: Status: Acute Code(s): F31.60 - Bipolar disorder, current episode mixed, unspecified (3) Abnormal EEG: Status: Acute Code(s): R94.01 - Abnormal electroencephalogram [EEG] Assessment and Plan: Assessment & Plan (1) OCD (obsessive compulsive disorder): (2) Bipolar 1 disorder, mixed : Assessment and Plan: ect started taper depakote encourage relaxation skills breathing techniques Riri will t.i.d. consider Anafranil Greater than 50% of the session was spent on counseling and/or coordination of care Patient educated on: diagnosis, medication risk/benefits and ECT Informed Consent: further education needed Reason for contiued inpatient stay Substantial Risk for: harm to self, inability to function and rapid decompensation
[2020-06-22] VITALS (11 sets, daily range): BP systolic 113–150; BP diastolic 75–98; PULSE 82–107; RESP 17–21; TEMP 35.8–36.4; O2SAT 96–99
--- NOTE | 2020-06-22 07:06 | HO.ECTPROC ---
ECT Procedure Note ECT Settings Device: THYMATRON DGx
--- NOTE | 2020-06-22 07:06 | MHC.SHP ---
Pre-Procedural Eval Section A The patient is an INPATIENT: Yes Changes since office visit: No Cold of Flu in the past 2 weeks, No New Medical Problems, No Changes in Medication and No Patient answered all questions The History & Physical has been completed within 30 days and I have reviewed it.: Yes Section B Chief Complaint: Mdd Allergies: Allergies Allergy/AdvReac Type Severity Reaction Status Date / Time No Known Allergies Allergy Unverified 05/17/20 19:50 [No Known Allergies*] Plan Diagnosis/Plan: Unchanged Patient has been examined and remains a candidate for the planned procedure
--- NOTE | 2020-06-22 07:59 | P.CONAN_ITS ---
FORMERLY [facility], LATER [facility] Past Medical History Medical History Bipolar 1 disorder, mixed Hypothyroidism OCD (obsessive compulsive disorder) Social History Social History Smoking Status: Former smoker Packs Per Day: 1 Cigarettes Per Day: 20.0 Years Smoked: 15 Smoked in Last 30 Days: No Use of substances other than those prescribed or required for medical reasons: No Currently Displaying Signs/Symptoms of Drug Intoxication Withdrawal: No Advance Directives: No Advance Directives Information Provided: No Advance Directives on File: No Do you have thoughts of harming others: None Do you have a plan to hurt others: No Plan Recently lost weight without trying: Unsure Meds Allergies Allergy/AdvReac Type Severity Reaction Status Date / Time No Known Allergies Allergy Unverified 05/17/20 19:50 [No Known Allergies*] Home Medications Medication Instructions Recorded Confirmed Type diazepam 10 mg PO BID PRN 05/30/20 05/30/20 History divalproex 500 mg PO BID 05/30/20 05/30/20 History levothyroxine 100 mcg PO DAILY 05/30/20 05/30/20 History lurasidone 40 mg PO DAILY 05/30/20 05/30/20 History oxybutynin chloride 10 mg PO DAILY 05/30/20 05/30/20 History quetiapine 200 mg PO BEDTIME 05/30/20 05/30/20 History Exam Exam Date and Time: June 22, 2020 0759 Height,Weight and Vital Signs: Height 5 ft 1 in Weight 79.3 kg Last Vital Signs Temp 97.6 F 06/22/20 06:30 Pulse 85 06/22/20 06:30 Resp 17 06/22/20 06:30 BP 113/77 06/22/20 06:30 Pulse Ox 96 06/22/20 06:30 Pertinent Lab Results Pertinent Lab Results: Laboratory Tests 05/08/20 05/09/20 05/11/20 20:32 16:31 08:02 WBC RBC Hgb Hct MCV MCH MCHC RDW RDW Coeff of Jacob Plt Count MPV Immature Gran % (Auto) Neut % (Auto) Lymph % (Auto) [place] % (Auto) Eos % (Auto) Baso % (Auto) Neut # (Auto) Lymph # (Auto) [place] # (Auto) Eos # (Auto) Baso # (Auto) Abs Immat Gran (auto) Absolute Neuts (auto) Absolute Lymphs (auto) Absolute Monos (auto) Absolute Eos (auto) Absolute Basos (auto) Absolute Nucleated RBC Nucleated RBC % (auto) Absolute Neutrophils Sodium 140 Potassium 4.4 Chloride 106 Carbon Dioxide Bicarbonate 25 Anion Gap 13 BUN 14 Creatinine 0.83 Estimated Creat Clear 91.2 Estim Creat Clear Calc Estimated GFR Est GFR (Non-Af Amer) > 60 Random Glucose Fasting Glucose 91 Calcium 8.8 D Total Bilirubin 0.6 AST 11 ALT 12 Alkaline Phosphatase 54 D Total Protein 6.2 L Albumin 3.9 Vitamin B12 Folate Free T4 1.16 TSH 3rd Generation 1.08 Urine Opiates Screen NOT DETECTED Ur Barbiturates Screen NOT DETECTED Valproic Acid 50.6 Phencyclidine Screen NOT DETECTED Clozapine Norclozapine Ur Amphetamines Screen NOT DETECTED U Benzodiazepines Scrn POSITIVE H Urine Cocaine Screen NOT DETECTED U Cannabinoids Screen NOT DETECTED Coronavirus (PCR) NEGATIVE HIV 1&2 Antigen & Ab 05/11/20 05/11/20 05/16/20 08:02 08:02 12:00 WBC 7.4 Cancelled RBC 4.49 Cancelled Hgb 13.3 Cancelled Hct 40.6 Cancelled MCV 90.4 Cancelled MCH 29.6 Cancelled MCHC 32.8 Cancelled RDW RDW Coeff of Jacob 13.2 Cancelled Plt Count 288 Cancelled MPV 11.0 Cancelled Immature Gran % (Auto) 0.3 Cancelled Neut % (Auto) 51.9 Cancelled Lymph % (Auto) 35.4 Cancelled [place] % (Auto) 11.6 H Cancelled Eos % (Auto) 0.1 Cancelled Baso % (Auto) 0.7 Cancelled Neut # (Auto) Lymph # (Auto) [place] # (Auto) Eos # (Auto) Baso # (Auto) Abs Immat Gran (auto) 0.02 Cancelled Absolute Neuts (auto) Absolute Lymphs (auto) 2.6 Cancelled Absolute Monos (auto) 0.9 Cancelled Absolute Eos (auto) 0.0 Cancelled Absolute Basos (auto) 0.1 Cancelled Absolute Nucleated RBC 0.000 Cancelled Nucleated RBC % (auto) 0.0 Cancelled Absolute Neutrophils 3.9 Sodium Potassium Chloride Carbon Dioxide Bicarbonate Anion Gap BUN Creatinine Estimated Creat Clear Estim Creat Clear Calc Estimated GFR Est GFR (Non-Af Amer) Random Glucose Fasting Glucose Calcium Total Bilirubin AST ALT Alkaline Phosphatase Total Protein Albumin Vitamin B12 998 H Folate 15.9 Free T4 TSH 3rd Generation Urine Opiates Screen Ur Barbiturates Screen Valproic Acid Phencyclidine Screen Clozapine Norclozapine Ur Amphetamines Screen U Benzodiazepines Scrn Urine Cocaine Screen U Cannabinoids Screen Coronavirus (PCR) HIV 1&2 Antigen & Ab 05/17/20 05/18/20 05/23/20 07:52 07:16 08:00 WBC 7.8 RBC 4.47 Hgb 13.4 Hct 40.5 MCV 90.6 MCH 30.0 MCHC 33.1 RDW RDW Coeff of Jacob 13.0 Plt Count 278 MPV 10.8 Immature Gran % (Auto) 0.3 Neut % (Auto) 51.5 Lymph % (Auto) 33.5 [place] % (Auto) 8.8 Eos % (Auto) 5.5 H Baso % (Auto) 0.4 Neut # (Auto) Lymph # (Auto) [place] # (Auto) Eos # (Auto) Baso # (Auto) Abs Immat Gran (auto) 0.02 Absolute Neuts (auto) Absolute Lymphs (auto) 2.6 Absolute Monos (auto) 0.7 Absolute Eos (auto) 0.4 Absolute Basos (auto) 0.0 Absolute Nucleated RBC 0.000 Nucleated RBC % (auto) 0.0 Absolute Neutrophils 4.0 Sodium Potassium Chloride Carbon Dioxide Bicarbonate Anion Gap BUN Creatinine Estimated Creat Clear Estim Creat Clear Calc Estimated GFR Est GFR (Non-Af Amer) Random Glucose Fasting Glucose Calcium Total Bilirubin AST ALT Alkaline Phosphatase Total Protein Albumin Vitamin B12 Folate Free T4 TSH 3rd Generation Urine Opiates Screen Ur Barbiturates Screen Valproic Acid Phencyclidine Screen Clozapine Cancelled Norclozapine Cancelled Ur Amphetamines Screen U Benzodiazepines Scrn Urine Cocaine Screen U Cannabinoids Screen Coronavirus (PCR) HIV 1&2 Antigen & Ab NONREACTIVE 05/24/20 06/02/20 06/04/20 09:20 10:41 09:51 WBC 9.4 RBC Hgb Hct MCV MCH MCHC RDW RDW Coeff of Jacob Plt Count MPV Immature Gran % (Auto) Neut % (Auto) Lymph % (Auto) [place] % (Auto) Eos % (Auto) Baso % (Auto) Neut # (Auto) 7.6 Lymph # (Auto) [place] # (Auto) Eos # (Auto) Baso # (Auto) Abs Immat Gran (auto) Absolute Neuts (auto) Absolute Lymphs (auto) Absolute Monos (auto) Absolute Eos (auto) Absolute Basos (auto) Absolute Nucleated RBC Nucleated RBC % (auto) Absolute Neutrophils 5.3 Sodium Potassium Chloride Carbon Dioxide Bicarbonate Anion Gap BUN Creatinine Estimated Creat Clear Estim Creat Clear Calc Estimated GFR Est GFR (Non-Af Amer) Random Glucose Fasting Glucose Calcium Total Bilirubin AST ALT Alkaline Phosphatase Total Protein Albumin Vitamin B12 Folate Free T4 TSH 3rd Generation Urine Opiates Screen Ur Barbiturates Screen Valproic Acid Phencyclidine Screen Clozapine 419 Norclozapine 111 Ur Amphetamines Screen U Benzodiazepines Scrn Urine Cocaine Screen U Cannabinoids Screen Coronavirus (PCR) HIV 1&2 Antigen & Ab 06/09/20 06/14/20 06/16/20 09:39 06:57 13:13 WBC RBC Hgb Hct MCV MCH MCHC RDW RDW Coeff of Jacob Plt Count MPV Immature Gran % (Auto) Neut % (Auto) Lymph % (Auto) [place] % (Auto) Eos % (Auto) Baso % (Auto) Neut # (Auto) Lymph # (Auto) [place] # (Auto) Eos # (Auto) Baso # (Auto) Abs Immat Gran (auto) Absolute Neuts (auto) 6.8 Absolute Lymphs (auto) Absolute Monos (auto) Absolute Eos (auto) Absolute Basos (auto) Absolute Nucleated RBC Nucleated RBC % (auto) Absolute Neutrophils Sodium Potassium Chloride Carbon Dioxide Bicarbonate Anion Gap BUN Creatinine Estimated Creat Clear Estim Creat Clear Calc Estimated GFR Est GFR (Non-Af Amer) Random Glucose Fasting Glucose Calcium Total Bilirubin AST ALT Alkaline Phosphatase Total Protein Albumin Vitamin B12 Folate Free T4 TSH 3rd Generation Urine Opiates Screen Ur Barbiturates Screen Valproic Acid Phencyclidine Screen Clozapine 451 289 Norclozapine 115 110 Ur Amphetamines Screen U Benzodiazepines Scrn Urine Cocaine Screen U Cannabinoids Screen Coronavirus (PCR) HIV 1&2 Antigen & Ab 06/16/20 06/16/20 06/18/20 13:13 13:13 07:44 WBC 14.6 H 9.5 RBC 4.63 4.94 Hgb 13.9 14.9 Hct 41.8 45.9 MCV 90.3 92.9 MCH 30.0 30.2 MCHC 33.3 32.5 RDW 13.2 13.4 RDW Coeff of Jacob Plt Count 345 303 MPV 10.5 10.3 Immature Gran % (Auto) 0.4 0.5 H Neut % (Auto) 75.0 H 47.0 Lymph % (Auto) 13.8 L 37.2 [place] % (Auto) 6.4 9.4 Eos % (Auto) 3.9 5.3 H Baso % (Auto) 0.5 0.6 Neut # (Auto) Lymph # (Auto) 2.0 3.5 [place] # (Auto) 0.9 0.9 Eos # (Auto) 0.6 H 0.5 H Baso # (Auto) 0.1 0.1 Abs Immat Gran (auto) 0.06 H 0.05 H Absolute Neuts (auto) 10.9 H 4.5 Absolute Lymphs (auto) Absolute Monos (auto) Absolute Eos (auto) Absolute Basos (auto) Absolute Nucleated RBC 0.000 0.000 Nucleated RBC % (auto) 0.0 0.0 Absolute Neutrophils Sodium Potassium Chloride Carbon Dioxide Bicarbonate Anion Gap BUN Creatinine Estimated Creat Clear Estim Creat Clear Calc Estimated GFR Est GFR (Non-Af Amer) Random Glucose Fasting Glucose Calcium Total Bilirubin AST ALT Alkaline Phosphatase Total Protein Albumin Vitamin B12 Folate Free T4 TSH 3rd Generation Urine Opiates Screen Ur Barbiturates Screen Valproic Acid 72.7 Phencyclidine Screen Clozapine Norclozapine Ur Amphetamines Screen U Benzodiazepines Scrn Urine Cocaine Screen U Cannabinoids Screen Coronavirus (PCR) HIV 1&2 Antigen & Ab 06/18/20 06/19/20 07:44 16:16 WBC RBC Hgb Hct MCV MCH MCHC RDW RDW Coeff of Jacob Plt Count MPV Immature Gran % (Auto) Neut % (Auto) Lymph % (Auto) [place] % (Auto) Eos % (Auto) Baso % (Auto) Neut # (Auto) Lymph # (Auto) [place] # (Auto) Eos # (Auto) Baso # (Auto) Abs Immat Gran (auto) Absolute Neuts (auto) Absolute Lymphs (auto) Absolute Monos (auto) Absolute Eos (auto) Absolute Basos (auto) Absolute Nucleated RBC Nucleated RBC % (auto) Absolute Neutrophils Sodium 140 Potassium 4.5 Chloride 103 Carbon Dioxide 28 Bicarbonate Anion Gap 14 BUN 18 H Creatinine 0.80 Estimated Creat Clear Estim Creat Clear Calc 83.6 Estimated GFR > 60 Est GFR (Non-Af Amer) Random Glucose 99 Fasting Glucose Calcium 9.4 Total Bilirubin 0.2 AST 15 ALT 18 Alkaline Phosphatase 61 Total Protein 6.9 Albumin 4.1 Vitamin B12 Folate Free T4 TSH 3rd Generation Urine Opiates Screen Ur Barbiturates Screen Valproic Acid 75.0 Phencyclidine Screen Clozapine Norclozapine Ur Amphetamines Screen U Benzodiazepines Scrn Urine Cocaine Screen U Cannabinoids Screen Coronavirus (PCR) HIV 1&2 Antigen & Ab Airway Mallampati Class: II TM Dist: >3cm Neck ROM: Full Assessment and Plan Assessment Anesthesia Assessment: Anesthesia Plan Discussed and Chart Reviewed Final Anesthetic Review NPO: Yes ASA Class: II Final Preanesthetic Review: No Changes in Pt Med Stat, Meds/Allgs Chart Reviewed, Consent Obtained/Reviewed and Anes Risks/Benef Reviewed Patient Risk: Low Procedure Risk: Low Assessment/Block/Sedation in SS: Assess/Block/Sedation-SS Anesthetic Plan Anesthetic Plan: GA Disposition: Standard PACU
[2020-06-22] MEDS: Propranolol HCL 10 MG TABLET 20 MG PO ×2 (11:04→22:14)
[2020-06-22] MEDS: Levothyroxine Sodium 100 MCG TABLET PO (11:04)
[2020-06-22] MEDS: Divalproex Sodium ER 500 MG TAB.ER.24H PO (13:36)
[2020-06-22] MEDS: diazePAM 2 MG TABLET 5 MG PO ×2 (16:49→22:14)
[2020-06-22] MEDS: cloZAPine 25 MG TABLET 75 MG PO (16:49)
--- NOTE | 2020-06-22 16:59 | HO.ECTPROC ---
ECT Procedure Note ECT Settings Device: THYMATRON DGx
[2020-06-22] MEDS: OLANZapine ODT 10 MG TAB.RAPDIS 5 MG TRANSLINGU (18:10)
[2020-06-22] MEDS: LORazepam 1 MG TABLET PO (18:10)
[2020-06-22] MEDS: Divalproex Sodium 500 MG TABLET.DR PO (19:44)
[2020-06-22] MEDS: traZODone HCL 50 MG TABLET PO (22:13)
[2020-06-22] MEDS: cloZAPine 100 MG TABLET 200 MG PO (22:13)
--- NOTE | 2020-06-22 23:56 | P.PNPSI_ITS ---
Subjective Subjective Reason For Visit: Mdd Interim History: S/P ECT. See ECT note. Sedation noted later severe agitation Mental Status Exam Mental Status Exam Narrative: odd affect, agitated, very fearful this am ; noted to have periods of severe agitation restlessness thought she would be better off denies active plan in this setting but clearly suffering obssessional anxiety ruminating at times heterosexual, labile Patient Appearance: Disheveled and Appropriate Patient Orientation: Person, Place and Situation Level of Consciousness: Awake and Restless Patient Behavior: Cooperative, Restless, Anxious, Fearful and Impulsive Mood Description: Depressed, Anxious, Labile, Blunted and Angry Affect Description: Depressed, Anxious, Labile, Angry and Apprehensive Patient Cognition Impaired: No Ability to Follow Directions: Fair Speech Pattern: Perseverating and Pressured Memory Description: Episodic Impaired and Working Impaired Diagnostics Vital Signs (24Hr): Vital Signs - 24 hr 06/22/20 06:12 06/22/20 06:30 06/22/20 07:58 Temperature 96.5 F L 97.6 F 97.3 F Pulse Rate 107 H 85 82 Respiratory Rate 18 17 20 Blood Pressure 140/75 H 113/77 120/80 Pulse Oximetry 99 96 97 06/22/20 08:03 06/22/20 08:08 06/22/20 08:13 Temperature Pulse Rate 96 99 87 Respiratory Rate 20 21 H 19 Blood Pressure 131/89 129/75 136/86 Pulse Oximetry 98 97 97 06/22/20 08:28 06/22/20 08:43 06/22/20 11:00 Temperature 97.3 F 96.7 F L Pulse Rate 89 89 90 Respiratory Rate 18 20 Blood Pressure 149/94 H 141/94 H 150/98 H Pulse Oximetry 97 98 06/22/20 11:04 06/22/20 22:14 Temperature Pulse Rate 90 103 H Respiratory Rate Blood Pressure 150/98 H 148/89 H Pulse Oximetry Body Mass Index 33.0 Labs Results: 06/23/20 09:57 06/19/20 16:16 Medications Medications Current Medications Generic Name Dose Route Start Last Admin Trade Name Freq PRN Reason Stop Dose Admin Acetaminophen 650 mg 05/31/20 00:01 06/21/20 13:44 Acetaminophen 325 Mg Tablet PO 650 mg Q6H PRN Administration Pain, Mild (Pain Scale 1-3) Acetaminophen 650 mg 06/20/20 07:58 Acetaminophen 325 Mg Tablet PO ONCE PRN Pain, Mild (Pain Scale 1-3) Al Hydroxide/Mg Hydroxide 30 ml 05/31/20 00:01 Magnesium Hydrox/Alum Hydrox 30 Ml Oral.Susp PO Q6H PRN Heartburn/nausea Clozapine 200 mg 06/07/20 21:00 06/22/20 22:13 Clozapine 100 Mg Tablet PO 200 mg BEDTIME [place] Administration Clozapine 75 mg 06/22/20 14:15 06/22/20 16:49 Clozapine 25 Mg Tablet PO 75 mg DAILY [place] Administration Diazepam 5 mg 06/22/20 15:00 06/22/20 22:14 Diazepam 2 Mg Tablet PO 5 mg TID [place] Administration Divalproex Sodium 500 mg 06/22/20 09:00 06/22/20 13:36 Divalproex Sodium Er 500 Mg Tab.Er.24h PO 500 mg DAILY [place] Administration Hydroxyzine HCl 25 mg 05/31/20 21:00 06/19/20 00:04 Hydroxyzine Hcl 25 Mg Tablet PO 25 mg BEDTIME MRX1 PRN Administration NIGHT TIME ANXIETY Levothyroxine Sodium 100 mcg 05/31/20 06:30 06/22/20 11:04 Levothyroxine Sodium 100 Mcg Tablet PO 100 mcg DAILY@0630 [place] Administration Magnesium Hydroxide 30 ml 05/31/20 00:01 Milk Of Magnesia 30 Ml Oral.Susp PO Q24H PRN Constipation Nicotine Polacrilex 2 mg 05/31/20 00:01 Nicotine Polacrilex 2 Mg Gum BUCCAL Q2H PRN Nicotine Cravings Oxybutynin Chloride 10 mg 05/31/20 09:00 06/22/20 11:04 Oxybutynin Chloride Er 5 Mg Tab.Er.24 PO 10 mg DAILY [place] Administration Propranolol HCl 20 mg 06/02/20 21:00 06/22/20 22:14 Propranolol Hcl 10 Mg Tablet PO 20 mg TID@0830,1330,2100 [place] Administration Protocol Quetiapine Fumarate 50 mg 05/31/20 00:01 06/21/20 11:27 Quetiapine Fumarate 50 Mg Tablet PO 50 mg Q4H PRN Administration anxiety/restlessness Trazodone HCl 50 mg 06/01/20 11:41 06/22/20 22:13 Trazodone Hcl 50 Mg Tablet PO 50 mg BEDTIME PRN Administration Insomnia Allergies Allergies Allergy/AdvReac Type Severity Reaction Status Date / Time No Known Allergies Allergy Unverified 05/17/20 19:50 [No Known Allergies*] Assessment & Plan Assessment & Plan (1) OCD (obsessive compulsive disorder): Qualifiers: Obsessive-compulsive disorder type: mixed obsessional thoughts and acts Qualified Code(s): F42.2 - Mixed obsessional thoughts and acts Status: Acute Code(s): F42.9 - Obsessive-compulsive disorder, unspecified (2) Bipolar 1 disorder, mixed: Status: Acute Code(s): F31.60 - Bipolar disorder, current episode mixed, unspecified Assessment and Plan: Add depakote ER 250 mg in am (for total daily dose of 750 mg ) valium ? change ect placement Informed Consent: understands Reason for contiued inpatient stay Substantial Risk for: rapid decompensation Greater than 50% of the session was spent on counseling and/or coordination of c are
[2020-06-23] MEDS: Levothyroxine Sodium 100 MCG TABLET PO (06:44)
--- NOTE | 2020-06-23 07:34 | HO.ECTPROC ---
ECT Procedure Note Diagnosis/Treatment Diagnosis: Bipolar disorder Current Treatment Number: 2 Treatment: Series Interval Clinical Notes: Seems sedated. Depressed ECT Settings Device: THYMATRON DGx Electrode Placement: Right Unilateral Program/Pulse Width: 0.25 Energy Percent: 100 Seizure Duration By EEG (in seconds): 58 By Motor Observation (in seconds): 45 Medications Administration General Anesthetic: Etomidate (14) Muscle Relaxant: Succinylcholine (100) Ancillary Medications Analgesics: Torodol - Pre ECT (15) Cardiovascular Medications: Labetolol (4) Miscillaneous Medications: Propofol (30), Midazolam (2) and Flumazenil (0.5) Airway Management Airway Management: Bag Mask Ventilation Treatment Recommendations Electrode Placement: Right Unilateral Program/Pulse Width: 0.50 Energy Percent: 100 Pt Tolerated Procedure w/o Issue: Yes
[2020-06-23] MEDS: diazePAM 2 MG TABLET 5 MG PO ×3 (09:18→22:18)
[2020-06-23] MEDS: cloZAPine 25 MG TABLET 75 MG PO (09:20)
[2020-06-23] MEDS: Divalproex Sodium ER 500 MG TAB.ER.24H PO (09:20)
[2020-06-23 10:07] VITALS: BP 116/83; PULSE 123
[2020-06-23] MEDS: Propranolol HCL 10 MG TABLET 20 MG PO ×3 (10:07→22:19)
[2020-06-23 11:10] LABS: Neutrophils Absolute Auto 5.7 X10*3/uL (2.0-8.3); White Blood Count 9.9 X10*3/uL (4.8-10.8)
[2020-06-23 13:50] VITALS: BP 136/81; PULSE 101
[2020-06-23] MEDS: QUEtiapine Fumarate 50 MG TABLET PO ×2 (13:55→19:41)
--- NOTE | 2020-06-23 22:12 | HO.PSYCHPN ---
Subjective Subjective Reason For Visit: Mdd Subjective Notes: Conditional Voluntary Interim History: Patient obsessional anxious agitated and labile. Intrusive and impulsive; agitation and veyy distraught last night throwing herself on floor- tolerated additional depakote 500mg and zydis one time dose with good effect; v=calmer today. Medication Compliance: Yes Attending Groups: Intermittent Review of Systems Review of Systems Yes all other systems are reviewed and are negative Mental Status Exam Mental Status Exam Narrative: odd affect, agitated, noted to have periods of severe agitation restlessness thought she would be better off denies active plan in this setting but clearly suffering obssessional anxiety ruminating at times hypersexuul labile Patient Appearance: Disheveled and Appropriate Patient Orientation: Person, Place and Situation Level of Consciousness: Awake and Restless Patient Behavior: Cooperative, Restless, Anxious, Fearful and Impulsive Mood Description: Depressed, Anxious, Labile, Blunted and Angry Affect Description: Depressed, Anxious, Labile, Angry and Apprehensive Patient Cognition Impaired: No Ability to Follow Directions: Fair Speech Pattern: Perseverating and Pressured Memory Description: Episodic Impaired and Working Impaired Diagnostics Vital Signs (24Hr): Vital Signs - 24 hr 06/22/20 22:14 06/23/20 10:07 06/23/20 13:50 Pulse Rate 103 H 123 H 101 H Blood Pressure 148/89 H 116/83 136/81 Body Mass Index 33.0 Labs Results: 06/23/20 09:57 06/19/20 16:16 Labs: Laboratory Results - last 48 hr 06/23/20 09:57 WBC 9.9 Absolute Neuts (auto) 5.7 Medications Medications Current Medications Generic Name Dose Route Start Last Admin Trade Name Freq PRN Reason Stop Dose Admin Acetaminophen 650 mg 05/31/20 00:01 06/21/20 13:44 Acetaminophen 325 Mg Tablet PO 650 mg Q6H PRN Administration Pain, Mild (Pain Scale 1-3) Acetaminophen 650 mg 06/20/20 07:58 Acetaminophen 325 Mg Tablet PO ONCE PRN Pain, Mild (Pain Scale 1-3) Al Hydroxide/Mg Hydroxide 30 ml 05/31/20 00:01 Magnesium Hydrox/Alum Hydrox 30 Ml Oral.Susp PO Q6H PRN Heartburn/nausea Clozapine 200 mg 06/07/20 21:00 06/22/20 22:13 Clozapine 100 Mg Tablet PO 200 mg BEDTIME [place] Administration Clozapine 75 mg 06/22/20 14:15 06/23/20 09:20 Clozapine 25 Mg Tablet PO 75 mg DAILY [place] Administration Diazepam 5 mg 06/22/20 15:00 06/23/20 14:04 Diazepam 2 Mg Tablet PO 5 mg TID [place] Administration Divalproex Sodium 500 mg 06/22/20 09:00 06/23/20 09:20 Divalproex Sodium Er 500 Mg Tab.Er.24h PO 500 mg DAILY [place] Administration Hydroxyzine HCl 25 mg 05/31/20 21:00 06/19/20 00:04 Hydroxyzine Hcl 25 Mg Tablet PO 25 mg BEDTIME MRX1 PRN Administration NIGHT TIME ANXIETY Levothyroxine Sodium 100 mcg 05/31/20 06:30 06/23/20 06:44 Levothyroxine Sodium 100 Mcg Tablet PO 100 mcg DAILY@0630 [place] Administration Magnesium Hydroxide 30 ml 05/31/20 00:01 Milk Of Magnesia 30 Ml Oral.Susp PO Q24H PRN Constipation Nicotine Polacrilex 2 mg 05/31/20 00:01 Nicotine Polacrilex 2 Mg Gum BUCCAL Q2H PRN Nicotine Cravings Oxybutynin Chloride 10 mg 05/31/20 09:00 06/23/20 09:21 Oxybutynin Chloride Er 5 Mg Tab.Er.24 PO 10 mg DAILY [place] Administration Propranolol HCl 20 mg 06/02/20 21:00 06/23/20 13:50 Propranolol Hcl 10 Mg Tablet PO 20 mg TID@0830,1330,2100 [place] Administration Protocol Quetiapine Fumarate 50 mg 05/31/20 00:01 06/23/20 19:41 Quetiapine Fumarate 50 Mg Tablet PO 50 mg Q4H PRN Administration anxiety/restlessness Trazodone HCl 50 mg 06/01/20 11:41 06/22/20 22:13 Trazodone Hcl 50 Mg Tablet PO 50 mg BEDTIME PRN Administration Insomnia Allergies Allergies Allergy/AdvReac Type Severity Reaction Status Date / Time No Known Allergies Allergy Unverified 05/17/20 19:50 [No Known Allergies*] Assessment & Plan Assessment & Plan (1) OCD (obsessive compulsive disorder): Qualifiers: Obsessive-compulsive disorder type: mixed obsessional thoughts and acts Qualified Code(s): F42.2 - Mixed obsessional thoughts and acts Status: Acute Code(s): F42.9 - Obsessive-compulsive disorder, unspecified (2) Bipolar 1 disorder, mixed: Status: Acute Code(s): F31.60 - Bipolar disorder, current episode mixed, unspecified Assessment and Plan: continue treatment plan may consider reducng depakote more slowly if unable to tolerate - could give 750 mg E if needed (instead of 500mg) utilize PRN meds if needed encourage PO meds Patient educated on: diagnosis and medication risk/benefits Informed Consent: further education needed Reason for continued inpatient stay Substantial Risk for: harm to self, harm to others, inability to function and rapid decompensation Greater than 50% of the session was spent on counseling and/or coordination of care
[2020-06-23 22:19] VITALS: BP 137/90; PULSE 110
[2020-06-23] MEDS: cloZAPine 100 MG TABLET 200 MG PO (22:20)
[2020-06-24] MEDS: Levothyroxine Sodium 100 MCG TABLET PO (06:15)
[2020-06-24 07:41] VITALS: BP 107/68; PULSE 80; TEMP 36.6
[2020-06-24 08:51] VITALS: BP 107/68; PULSE 80
[2020-06-24] MEDS: Propranolol HCL 10 MG TABLET 20 MG PO ×3 (08:51→22:22)
[2020-06-24] MEDS: cloZAPine 25 MG TABLET 75 MG PO (08:51)
[2020-06-24] MEDS: Divalproex Sodium ER 500 MG TAB.ER.24H PO (08:51)
[2020-06-24] MEDS: diazePAM 2 MG TABLET 5 MG PO ×3 (09:21→22:21)
--- NOTE | 2020-06-24 11:00 | HO.PSYCHPN ---
Subjective Subjective Reason For Visit: Mdd Subjective Notes: Conditional Voluntary Interim History: Patient obsessional anxious agitated and labile. Feeling too scared to get out of bed this am . veyy distraught but no self harm- tolerated additional depakote 500mg and zydis one time dose with good effect; Medication Compliance: Yes Attending Groups: Intermittent Review of Systems Review of Systems Yes all other systems are reviewed and are negative Mental Status Exam Mental Status Exam Narrative: odd affect, agitated, very fearful this am ; noted to have periods of severe agitation restlessness thought she would be better off denies active plan in this setting but clearly suffering obssessional anxiety ruminating at times heterosexual, labile Patient Appearance: Disheveled and Appropriate Patient Orientation: Person, Place and Situation Level of Consciousness: Awake and Restless Patient Behavior: Cooperative, Restless, Anxious, Fearful and Impulsive Mood Description: Depressed, Anxious, Labile, Blunted and Angry Affect Description: Depressed, Anxious, Labile, Angry and Apprehensive Patient Cognition Impaired: No Ability to Follow Directions: Fair Speech Pattern: Perseverating and Pressured Memory Description: Episodic Impaired and Working Impaired Diagnostics Vital Signs (24Hr): Vital Signs - 24 hr 06/23/20 13:50 06/23/20 22:19 06/24/20 07:41 Temperature 97.8 F Pulse Rate 101 H 110 H 80 Blood Pressure 136/81 137/90 H 107/68 06/24/20 08:51 Temperature Pulse Rate 80 Blood Pressure 107/68 Body Mass Index 33.0 Labs Results: 06/23/20 09:57 06/19/20 16:16 Labs: Laboratory Results - last 48 hr 06/23/20 09:57 WBC 9.9 Absolute Neuts (auto) 5.7 Medications Medications Current Medications Generic Name Dose Route Start Last Admin Trade Name Freq PRN Reason Stop Dose Admin Acetaminophen 650 mg 05/31/20 00:01 06/21/20 13:44 Acetaminophen 325 Mg Tablet PO 650 mg Q6H PRN Administration Pain, Mild (Pain Scale 1-3) Acetaminophen 650 mg 06/20/20 07:58 Acetaminophen 325 Mg Tablet PO ONCE PRN Pain, Mild (Pain Scale 1-3) Al Hydroxide/Mg Hydroxide 30 ml 05/31/20 00:01 Magnesium Hydrox/Alum Hydrox 30 Ml Oral.Susp PO Q6H PRN Heartburn/nausea Clozapine 200 mg 06/07/20 21:00 06/23/20 22:20 Clozapine 100 Mg Tablet PO 200 mg BEDTIME [place] Administration Clozapine 75 mg 06/22/20 14:15 06/24/20 08:51 Clozapine 25 Mg Tablet PO 75 mg DAILY [place] Administration Diazepam 5 mg 06/22/20 15:00 06/24/20 09:21 Diazepam 2 Mg Tablet PO 5 mg TID [place] Administration Divalproex Sodium 500 mg 06/22/20 09:00 06/24/20 08:51 Divalproex Sodium Er 500 Mg Tab.Er.24h PO 500 mg DAILY [place] Administration Hydroxyzine HCl 25 mg 05/31/20 21:00 06/19/20 00:04 Hydroxyzine Hcl 25 Mg Tablet PO 25 mg BEDTIME MRX1 PRN Administration NIGHT TIME ANXIETY Levothyroxine Sodium 100 mcg 05/31/20 06:30 06/24/20 06:15 Levothyroxine Sodium 100 Mcg Tablet PO 100 mcg DAILY@0630 [place] Administration Magnesium Hydroxide 30 ml 05/31/20 00:01 Milk Of Magnesia 30 Ml Oral.Susp PO Q24H PRN Constipation Nicotine Polacrilex 2 mg 05/31/20 00:01 Nicotine Polacrilex 2 Mg Gum BUCCAL Q2H PRN Nicotine Cravings Oxybutynin Chloride 10 mg 05/31/20 09:00 06/24/20 08:51 Oxybutynin Chloride Er 5 Mg Tab.Er.24 PO 10 mg DAILY [place] Administration Propranolol HCl 20 mg 06/02/20 21:00 06/24/20 08:51 Propranolol Hcl 10 Mg Tablet PO 20 mg TID@0830,1330,2100 [place] Administration Protocol Quetiapine Fumarate 50 mg 05/31/20 00:01 06/23/20 19:41 Quetiapine Fumarate 50 Mg Tablet PO 50 mg Q4H PRN Administration anxiety/restlessness Trazodone HCl 50 mg 06/01/20 11:41 06/22/20 22:13 Trazodone Hcl 50 Mg Tablet PO 50 mg BEDTIME PRN Administration Insomnia Allergies Allergies Allergy/AdvReac Type Severity Reaction Status Date / Time No Known Allergies Allergy Unverified 05/17/20 19:50 [No Known Allergies*] Assessment & Plan Assessment & Plan (1) OCD (obsessive compulsive disorder): Qualifiers: Obsessive-compulsive disorder type: mixed obsessional thoughts and acts Qualified Code(s): F42.2 - Mixed obsessional thoughts and acts Status: Acute Code(s): F42.9 - Obsessive-compulsive disorder, unspecified (2) Bipolar 1 disorder, mixed: Status: Acute Code(s): F31.60 - Bipolar disorder, current episode mixed, unspecified Assessment and Plan: Add depakote ER 250 mg in am (for total daily dose of 750 mg ) Informed Consent: understands Reason for contiued inpatient stay Substantial Risk for: rapid decompensation Greater than 50% of the session was spent on counseling and/or coordination of care
[2020-06-24] MEDS: Divalproex Sodium ER 250 MG TAB.ER.24H PO (12:45)
[2020-06-24 13:29] VITALS: BP 118/62; PULSE 88
[2020-06-24] MEDS: QUEtiapine Fumarate 50 MG TABLET PO ×2 (13:33→19:09)
[2020-06-24 22:22] VITALS: BP 126/82; PULSE 103
[2020-06-24] MEDS: cloZAPine 100 MG TABLET 200 MG PO (22:22)
[2020-06-24 22:29] VITALS: BP 126/82; PULSE 103; TEMP 36.3; O2SAT 96
[2020-06-25] VITALS (13 sets, daily range): BP systolic 108–157; BP diastolic 70–92; PULSE 74–116; RESP 16–20; TEMP 36.4–36.8; O2SAT 96–99; BMI 33.0
[2020-06-25] MEDS: hydrOXYzine HCL 25 MG TABLET PO (00:18)
--- NOTE | 2020-06-25 07:08 | HO.ECTPROC ---
ECT Procedure Note Diagnosis/Treatment Diagnosis: Bipolar disorder Current Treatment Number: 3 Treatment: Series Interval Clinical Notes: Remains sedated but oriented ECT Settings Device: THYMATRON DGx Electrode Placement: Bifrontal Program/Pulse Width: 0.25 Energy Percent: 100 Seizure Duration By EEG (in seconds): 72 By Motor Observation (in seconds): 56 Medications Administration General Anesthetic: Etomidate (14) Muscle Relaxant: Succinylcholine (100) Ancillary Medications Analgesics: Torodol - Pre ECT (15) Anti-emetics: Zofran - Pre ECT (4) Miscillaneous Medications: Propofol (30) Airway Management Airway Management: Bag Mask Ventilation Treatment Recommendations Notes: Did not get Flumazenil this ECT Pt Tolerated Procedure w/o Issue: Yes
--- NOTE | 2020-06-25 08:47 | HO.ANESPROP2 ---
FORMERLY [facility], LATER [facility] Past Medical History Medical History Bipolar 1 disorder, mixed Hypothyroidism OCD (obsessive compulsive disorder) Social History Social History Smoking Status: Former smoker Packs Per Day: 1 Cigarettes Per Day: 20.0 Years Smoked: 15 Smoked in Last 30 Days: No Use of substances other than those prescribed or required for medical reasons: No Substance Use Type Other:: pt states history of marijuana and cocaine use years ago Currently Displaying Signs/Symptoms of Drug Intoxication Withdrawal: No Have you been hit, kicked, punched, or otherwise hurt by someone within the past year? If so, by whom?: No Advance Directives: No Advance Directives Information Provided: No Advance Directives on File: No Do you have thoughts of harming others: None Do you have a plan to hurt others: No Plan Recently lost weight without trying: Unsure Meds Allergies Allergy/AdvReac Type Severity Reaction Status Date / Time No Known Allergies Allergy Unverified 05/17/20 19:50 [No Known Allergies*] Home Medications Medication Instructions Recorded Confirmed Type diazepam 10 mg PO BID PRN 05/30/20 05/30/20 History divalproex 500 mg PO BID 05/30/20 05/30/20 History levothyroxine 100 mcg PO DAILY 05/30/20 05/30/20 History lurasidone 40 mg PO DAILY 05/30/20 05/30/20 History oxybutynin chloride 10 mg PO DAILY 05/30/20 05/30/20 History quetiapine 200 mg PO BEDTIME 05/30/20 05/30/20 History Exam Exam Date and Time: June 25, 2020 0847 Height,Weight and Vital Signs: Height 5 ft 1 in Weight 79.3 kg Last Vital Signs Temp 97.5 F 06/25/20 06:25 Pulse 92 06/25/20 06:25 Resp 16 06/25/20 06:25 BP 108/77 06/25/20 06:25 Pulse Ox 96 06/25/20 06:25 Pertinent Lab Results Pertinent Lab Results: Laboratory Tests 05/08/20 05/09/20 05/11/20 20:32 16:31 08:02 WBC RBC Hgb Hct MCV MCH MCHC RDW RDW Coeff of Jacob Plt Count MPV Immature Gran % (Auto) Neut % (Auto) Lymph % (Auto) [place] % (Auto) Eos % (Auto) Baso % (Auto) Neut # (Auto) Lymph # (Auto) [place] # (Auto) Eos # (Auto) Baso # (Auto) Abs Immat Gran (auto) Absolute Neuts (auto) Absolute Lymphs (auto) Absolute Monos (auto) Absolute Eos (auto) Absolute Basos (auto) Absolute Nucleated RBC Nucleated RBC % (auto) Absolute Neutrophils Sodium 140 Potassium 4.4 Chloride 106 Carbon Dioxide Bicarbonate 25 Anion Gap 13 BUN 14 Creatinine 0.83 Estimated Creat Clear 91.2 Estim Creat Clear Calc Estimated GFR Est GFR (Non-Af Amer) > 60 Random Glucose Fasting Glucose 91 Calcium 8.8 D Total Bilirubin 0.6 AST 11 ALT 12 Alkaline Phosphatase 54 D Total Protein 6.2 L Albumin 3.9 Vitamin B12 Folate Free T4 1.16 TSH 3rd Generation 1.08 Urine Opiates Screen NOT DETECTED Ur Barbiturates Screen NOT DETECTED Valproic Acid 50.6 Phencyclidine Screen NOT DETECTED Clozapine Norclozapine Ur Amphetamines Screen NOT DETECTED U Benzodiazepines Scrn POSITIVE H Urine Cocaine Screen NOT DETECTED U Cannabinoids Screen NOT DETECTED Coronavirus (PCR) NEGATIVE HIV 1&2 Antigen & Ab 05/11/20 05/11/20 05/16/20 08:02 08:02 12:00 WBC 7.4 Cancelled RBC 4.49 Cancelled Hgb 13.3 Cancelled Hct 40.6 Cancelled MCV 90.4 Cancelled MCH 29.6 Cancelled MCHC 32.8 Cancelled RDW RDW Coeff of Jacob 13.2 Cancelled Plt Count 288 Cancelled MPV 11.0 Cancelled Immature Gran % (Auto) 0.3 Cancelled Neut % (Auto) 51.9 Cancelled Lymph % (Auto) 35.4 Cancelled [place] % (Auto) 11.6 H Cancelled Eos % (Auto) 0.1 Cancelled Baso % (Auto) 0.7 Cancelled Neut # (Auto) Lymph # (Auto) [place] # (Auto) Eos # (Auto) Baso # (Auto) Abs Immat Gran (auto) 0.02 Cancelled Absolute Neuts (auto) Absolute Lymphs (auto) 2.6 Cancelled Absolute Monos (auto) 0.9 Cancelled Absolute Eos (auto) 0.0 Cancelled Absolute Basos (auto) 0.1 Cancelled Absolute Nucleated RBC 0.000 Cancelled Nucleated RBC % (auto) 0.0 Cancelled Absolute Neutrophils 3.9 Sodium Potassium Chloride Carbon Dioxide Bicarbonate Anion Gap BUN Creatinine Estimated Creat Clear Estim Creat Clear Calc Estimated GFR Est GFR (Non-Af Amer) Random Glucose Fasting Glucose Calcium Total Bilirubin AST ALT Alkaline Phosphatase Total Protein Albumin Vitamin B12 998 H Folate 15.9 Free T4 TSH 3rd Generation Urine Opiates Screen Ur Barbiturates Screen Valproic Acid Phencyclidine Screen Clozapine Norclozapine Ur Amphetamines Screen U Benzodiazepines Scrn Urine Cocaine Screen U Cannabinoids Screen Coronavirus (PCR) HIV 1&2 Antigen & Ab 05/17/20 05/18/20 05/23/20 07:52 07:16 08:00 WBC 7.8 RBC 4.47 Hgb 13.4 Hct 40.5 MCV 90.6 MCH 30.0 MCHC 33.1 RDW RDW Coeff of Jacob 13.0 Plt Count 278 MPV 10.8 Immature Gran % (Auto) 0.3 Neut % (Auto) 51.5 Lymph % (Auto) 33.5 [place] % (Auto) 8.8 Eos % (Auto) 5.5 H Baso % (Auto) 0.4 Neut # (Auto) Lymph # (Auto) [place] # (Auto) Eos # (Auto) Baso # (Auto) Abs Immat Gran (auto) 0.02 Absolute Neuts (auto) Absolute Lymphs (auto) 2.6 Absolute Monos (auto) 0.7 Absolute Eos (auto) 0.4 Absolute Basos (auto) 0.0 Absolute Nucleated RBC 0.000 Nucleated RBC % (auto) 0.0 Absolute Neutrophils 4.0 Sodium Potassium Chloride Carbon Dioxide Bicarbonate Anion Gap BUN Creatinine Estimated Creat Clear Estim Creat Clear Calc Estimated GFR Est GFR (Non-Af Amer) Random Glucose Fasting Glucose Calcium Total Bilirubin AST ALT Alkaline Phosphatase Total Protein Albumin Vitamin B12 Folate Free T4 TSH 3rd Generation Urine Opiates Screen Ur Barbiturates Screen Valproic Acid Phencyclidine Screen Clozapine Cancelled Norclozapine Cancelled Ur Amphetamines Screen U Benzodiazepines Scrn Urine Cocaine Screen U Cannabinoids Screen Coronavirus (PCR) HIV 1&2 Antigen & Ab NONREACTIVE 05/24/20 06/02/20 06/04/20 09:20 10:41 09:51 WBC 9.4 RBC Hgb Hct MCV MCH MCHC RDW RDW Coeff of Jacob Plt Count MPV Immature Gran % (Auto) Neut % (Auto) Lymph % (Auto) [place] % (Auto) Eos % (Auto) Baso % (Auto) Neut # (Auto) 7.6 Lymph # (Auto) [place] # (Auto) Eos # (Auto) Baso # (Auto) Abs Immat Gran (auto) Absolute Neuts (auto) Absolute Lymphs (auto) Absolute Monos (auto) Absolute Eos (auto) Absolute Basos (auto) Absolute Nucleated RBC Nucleated RBC % (auto) Absolute Neutrophils 5.3 Sodium Potassium Chloride Carbon Dioxide Bicarbonate Anion Gap BUN Creatinine Estimated Creat Clear Estim Creat Clear Calc Estimated GFR Est GFR (Non-Af Amer) Random Glucose Fasting Glucose Calcium Total Bilirubin AST ALT Alkaline Phosphatase Total Protein Albumin Vitamin B12 Folate Free T4 TSH 3rd Generation Urine Opiates Screen Ur Barbiturates Screen Valproic Acid Phencyclidine Screen Clozapine 419 Norclozapine 111 Ur Amphetamines Screen U Benzodiazepines Scrn Urine Cocaine Screen U Cannabinoids Screen Coronavirus (PCR) HIV 1&2 Antigen & Ab 06/09/20 06/14/20 06/16/20 09:39 06:57 13:13 WBC RBC Hgb Hct MCV MCH MCHC RDW RDW Coeff of Jacob Plt Count MPV Immature Gran % (Auto) Neut % (Auto) Lymph % (Auto) [place] % (Auto) Eos % (Auto) Baso % (Auto) Neut # (Auto) Lymph # (Auto) [place] # (Auto) Eos # (Auto) Baso # (Auto) Abs Immat Gran (auto) Absolute Neuts (auto) 6.8 Absolute Lymphs (auto) Absolute Monos (auto) Absolute Eos (auto) Absolute Basos (auto) Absolute Nucleated RBC Nucleated RBC % (auto) Absolute Neutrophils Sodium Potassium Chloride Carbon Dioxide Bicarbonate Anion Gap BUN Creatinine Estimated Creat Clear Estim Creat Clear Calc Estimated GFR Est GFR (Non-Af Amer) Random Glucose Fasting Glucose Calcium Total Bilirubin AST ALT Alkaline Phosphatase Total Protein Albumin Vitamin B12 Folate Free T4 TSH 3rd Generation Urine Opiates Screen Ur Barbiturates Screen Valproic Acid Phencyclidine Screen Clozapine 451 289 Norclozapine 115 110 Ur Amphetamines Screen U Benzodiazepines Scrn Urine Cocaine Screen U Cannabinoids Screen Coronavirus (PCR) HIV 1&2 Antigen & Ab 06/16/20 06/16/2020 13:13 13:13 07:44 WBC 14.6 H 9.5 RBC 4.63 4.94 Hgb 13.9 14.9 Hct 41.8 45.9 MCV 90.3 92.9 MCH 30.0 30.2 MCHC 33.3 32.5 RDW 13.2 13.4 RDW Coeff of Jacob Plt Count 345 303 MPV 10.5 10.3 Immature Gran % (Auto) 0.4 0.5 H Neut % (Auto) 75.0 H 47.0 Lymph % (Auto) 13.8 L 37.2 [place] % (Auto) 6.4 9.4 Eos % (Auto) 3.9 5.3 H Baso % (Auto) 0.5 0.6 Neut # (Auto) Lymph # (Auto) 2.0 3.5 [place] # (Auto) 0.9 0.9 Eos # (Auto) 0.6 H 0.5 H Baso # (Auto) 0.1 0.1 Abs Immat Gran (auto) 0.06 H 0.05 H Absolute Neuts (auto) 10.9 H 4.5 Absolute Lymphs (auto) Absolute Monos (auto) Absolute Eos (auto) Absolute Basos (auto) Absolute Nucleated RBC 0.000 0.000 Nucleated RBC % (auto) 0.0 0.0 Absolute Neutrophils Sodium Potassium Chloride Carbon Dioxide Bicarbonate Anion Gap BUN Creatinine Estimated Creat Clear Estim Creat Clear Calc Estimated GFR Est GFR (Non-Af Amer) Random Glucose Fasting Glucose Calcium Total Bilirubin AST ALT Alkaline Phosphatase Total Protein Albumin Vitamin B12 Folate Free T4 TSH 3rd Generation Urine Opiates Screen Ur Barbiturates Screen Valproic Acid 72.7 Phencyclidine Screen Clozapine Norclozapine Ur Amphetamines Screen U Benzodiazepines Scrn Urine Cocaine Screen U Cannabinoids Screen Coronavirus (PCR) HIV 1&2 Antigen & Ab 06/18/20 06/19/20 06/23/20 07:44 16:16 09:57 WBC 9.9 RBC Hgb Hct MCV MCH MCHC RDW RDW Coeff of Jacob Plt Count MPV Immature Gran % (Auto) Neut % (Auto) Lymph % (Auto) [place] % (Auto) Eos % (Auto) Baso % (Auto) Neut # (Auto) Lymph # (Auto) [place] # (Auto) Eos # (Auto) Baso # (Auto) Abs Immat Gran (auto) Absolute Neuts (auto) 5.7 Absolute Lymphs (auto) Absolute Monos (auto) Absolute Eos (auto) Absolute Basos (auto) Absolute Nucleated RBC Nucleated RBC % (auto) Absolute Neutrophils Sodium 140 Potassium 4.5 Chloride 103 Carbon Dioxide 28 Bicarbonate Anion Gap 14 BUN 18 H Creatinine 0.80 Estimated Creat Clear Estim Creat Clear Calc 83.6 Estimated GFR > 60 Est GFR (Non-Af Amer) Random Glucose 99 Fasting Glucose Calcium 9.4 Total Bilirubin 0.2 AST 15 ALT 18 Alkaline Phosphatase 61 Total Protein 6.9 Albumin 4.1 Vitamin B12 Folate Free T4 TSH 3rd Generation Urine Opiates Screen Ur Barbiturates Screen Valproic Acid 75.0 Phencyclidine Screen Clozapine Norclozapine Ur Amphetamines Screen U Benzodiazepines Scrn Urine Cocaine Screen U Cannabinoids Screen Coronavirus (PCR) HIV 1&2 Antigen & Ab Assessment and Plan Assessment Anesthesia Assessment: Chart Reviewed Final Anesthetic Review NPO: Yes ASA Class: III Final Preanesthetic Review: No Changes in Pt Med Stat, Meds/Allgs Chart Reviewed and Consent Obtained/Reviewed Patient Risk: Intermediate Procedure Risk: Intermediate Anesthetic Plan Anesthetic Plan: GA Disposition: Standard PACU
--- NOTE | 2020-06-25 09:03 | P.PNPSI_ITS ---
Subjective Subjective Reason For Visit: Mdd Interim History: S/P ECT. See ECT note. Sedation noted Mental Status Exam Mental Status Exam Narrative: odd affect, agitated, very fearful this am ; noted to have periods of severe agitation restlessness thought she would be better off denies active plan in this setting but clearly suffering obssessional anxiety ruminating at times heterosexual, labile Patient Appearance: Disheveled and Appropriate Patient Orientation: Person, Place and Situation Level of Consciousness: Awake and Restless Patient Behavior: Cooperative, Restless, Anxious, Fearful and Impulsive Mood Description: Depressed, Anxious, Labile, Blunted and Angry Affect Description: Depressed, Anxious, Labile, Angry and Apprehensive Patient Cognition Impaired: No Ability to Follow Directions: Fair Speech Pattern: Perseverating and Pressured Memory Description: Episodic Impaired and Working Impaired Diagnostics Vital Signs (24Hr): Vital Signs - 24 hr 06/24/20 13:29 06/24/20 22:22 06/24/20 22:29 Temperature 97.4 F Pulse Rate 88 103 H 103 H Respiratory Rate Blood Pressure 118/62 126/82 126/82 Pulse Oximetry 96 06/25/20 05:54 06/25/20 06:05 06/25/20 06:25 Temperature 97.9 F 97.9 F 97.5 F Pulse Rate 74 90 92 Respiratory Rate 18 18 16 Blood Pressure 131/83 131/83 108/77 Pulse Oximetry 99 99 96 Body Mass Index 33.0 Labs Results: 06/23/20 09:57 06/19/20 16:16 Labs: Laboratory Results - last 48 hr 06/23/20 09:57 WBC 9.9 Absolute Neuts (auto) 5.7 Medications Medications Current Medications Generic Name Dose Route Start Last Admin Trade Name Freq PRN Reason Stop Dose Admin Acetaminophen 650 mg 05/31/20 00:01 06/21/20 13:44 Acetaminophen 325 Mg Tablet PO 650 mg Q6H PRN Administration Pain, Mild (Pain Scale 1-3) Acetaminophen 650 mg 06/20/20 07:58 Acetaminophen 325 Mg Tablet PO ONCE PRN Pain, Mild (Pain Scale 1-3) Acetaminophen 650 mg 06/25/20 08:49 Acetaminophen 325 Mg Tablet PO ONCE PRN Pain, Mild (Pain Scale 1-3) Al Hydroxide/Mg Hydroxide 30 ml 05/31/20 00:01 Magnesium Hydrox/Alum Hydrox 30 Ml Oral.Susp PO Q6H PRN Heartburn/nausea Clozapine 200 mg 06/07/20 21:00 06/24/20 22:22 Clozapine 100 Mg Tablet PO 200 mg BEDTIME [place] Administration Clozapine 75 mg 06/22/20 14:15 06/24/20 08:51 Clozapine 25 Mg Tablet PO 75 mg DAILY [place] Administration Diazepam 5 mg 06/22/20 15:00 06/24/20 22:21 Diazepam 2 Mg Tablet PO 5 mg TID [place] Administration Divalproex Sodium 500 mg 06/22/20 09:00 06/24/20 08:51 Divalproex Sodium Er 500 Mg Tab.Er.24h PO 500 mg DAILY [place] Administration Fentanyl 25 mcg 06/25/20 08:49 Fentanyl Citrate/Pf 100 Mcg/2 Ml Vial IVPUSH Q5M PRN Pain, Moderate (Pain Scale 4-6 Hydroxyzine HCl 25 mg 05/31/20 21:00 06/25/20 00:18 Hydroxyzine Hcl 25 Mg Tablet PO 25 mg BEDTIME MRX1 PRN Administration NIGHT TIME ANXIETY Lactated Ringer's 1,000 mls @ 50 mls/hr 06/25/20 08:45 Lr IVCONT .Q20H [facility] Levothyroxine Sodium 100 mcg 05/31/20 06:30 06/24/20 06:15 Levothyroxine Sodium 100 Mcg Tablet PO 100 mcg DAILY@0630 [facility] Administration Magnesium Hydroxide 30 ml 05/31/20 00:01 Milk Of Magnesia 30 Ml Oral.Susp PO Q24H PRN Constipation Nicotine Polacrilex 2 mg 05/31/20 00:01 Nicotine Polacrilex 2 Mg Gum BUCCAL Q2H PRN Nicotine Cravings Ondansetron HCl 4 mg 06/25/20 08:49 Ondansetron Hcl 4 Mg/2 Ml Vial IVPUSH ONCE PRN Nausea and Vomiting Oxybutynin Chloride 10 mg 05/31/20 09:00 06/24/20 08:51 Oxybutynin Chloride Er 5 Mg Tab.Er.24 PO 10 mg DAILY [place] Administration Oxycodone HCl 10 mg 06/25/20 08:49 Oxycodone Hcl Immed Release 5 Mg Tablet PO ONCE PRN Pain, Severe (Pain Scale 7-10) Propranolol HCl 20 mg 06/02/20 21:00 06/24/20 22:22 Propranolol Hcl 10 Mg Tablet PO 20 mg TID@0830,1330,2100 [place] Administration Protocol Quetiapine Fumarate 50 mg 05/31/20 00:01 06/24/20 19:09 Quetiapine Fumarate 50 Mg Tablet PO 50 mg Q4H PRN Administration anxiety/restlessness Trazodone HCl 50 mg 06/01/20 11:41 06/22/20 22:13 Trazodone Hcl 50 Mg Tablet PO 50 mg BEDTIME PRN Administration Insomnia Allergies Allergies Allergy/AdvReac Type Severity Reaction Status Date / Time No Known Allergies Allergy Unverified 05/17/20 19:50 [No Known Allergies*] Assessment & Plan Assessment & Plan (1) OCD (obsessive compulsive disorder): Qualifiers: Obsessive-compulsive disorder type: mixed obsessional thoughts and acts Qualified Code(s): F42.2 - Mixed obsessional thoughts and acts Status: Acute Code(s): F42.9 - Obsessive-compulsive disorder, unspecified (2) Bipolar 1 disorder, mixed: Status: Acute Code(s): F31.60 - Bipolar disorder, current episode mixed, unspecified Assessment and Plan: Add depakote ER 250 mg in am (for total daily dose of 750 mg ) Informed Consent: understands Reason for contiued inpatient stay Substantial Risk for: rapid decompensation Greater than 50% of the session was spent on counseling and/or coordination of care
[2020-06-25] MEDS: Divalproex Sodium ER 500 MG TAB.ER.24H PO (10:42)
[2020-06-25] MEDS: cloZAPine 25 MG TABLET 75 MG PO (10:42)
[2020-06-25] MEDS: Levothyroxine Sodium 100 MCG TABLET PO (10:43)
[2020-06-25] MEDS: diazePAM 2 MG TABLET 5 MG PO ×3 (11:11→22:18)
[2020-06-25] MEDS: Propranolol HCL 10 MG TABLET 20 MG PO ×3 (11:12→22:17)
[2020-06-25] MEDS: cloZAPine 100 MG TABLET 200 MG PO (22:18)
[2020-06-26] MEDS: hydrOXYzine HCL 25 MG TABLET PO (02:23)
[2020-06-26] MEDS: traZODone HCL 50 MG TABLET PO (02:23)
[2020-06-26] MEDS: Acetaminophen 325 MG TABLET 650 MG PO (02:23)
[2020-06-26] MEDS: Levothyroxine Sodium 100 MCG TABLET PO (05:53)
[2020-06-26 06:36] VITALS: BP 106/61; PULSE 63; RESP 18; TEMP 36.4
[2020-06-26 09:33] VITALS: BP 106/61; PULSE 63
[2020-06-26] MEDS: Propranolol HCL 10 MG TABLET 20 MG PO ×3 (09:33→22:27)
[2020-06-26] MEDS: diazePAM 2 MG TABLET 5 MG PO (09:33)
[2020-06-26] MEDS: Divalproex Sodium ER 500 MG TAB.ER.24H PO (09:33)
[2020-06-26] MEDS: cloZAPine 25 MG TABLET 75 MG PO (09:34)
--- NOTE | 2020-06-26 12:08 | HO.PSYCHPN ---
Subjective Subjective Date of Service: 06/26/20 Reason For Visit: Mdd Subjective Notes: Conditional Voluntary Interim History: patient depressed anxious ruminating. Had some awareness post ECT this was reviewed patient has been sedated Medication Compliance: Yes Side effects from medications: Yes Mental Status Exam Mental Status Exam Narrative: odd affect, agitated, very fearful this am ; noted to have periods of severe agitation restlessness thought she would be better off denies active plan in this setting but clearly suffering obssessional anxiety ruminating at times heterosexual, labile Patient Appearance: Disheveled and Appropriate Patient Orientation: Person, Place and Situation Level of Consciousness: Awake and Restless Patient Behavior: Cooperative, Restless, Anxious, Fearful and Impulsive Mood Description: Depressed, Anxious, Labile, Blunted and Angry Affect Description: Depressed, Anxious, Labile, Angry and Apprehensive Patient Cognition Impaired: No Ability to Follow Directions: Fair Speech Pattern: Perseverating and Pressured Memory Description: Episodic Impaired and Working Impaired Diagnostics Vital Signs (24Hr): Vital Signs - 24 hr 06/25/20 14:39 06/25/20 22:17 06/26/20 06:36 Temperature 97.5 F Pulse Rate 108 H 83 63 Respiratory Rate 18 Blood Pressure 142/78 H 119/75 106/61 06/26/20 09:33 Temperature Pulse Rate 63 Respiratory Rate Blood Pressure 106/61 Body Mass Index 33.0 Labs Results: 06/23/20 09:57 06/19/20 16:16 Medications Medications Current Medications Generic Name Dose Route Start Last Admin Trade Name Freq PRN Reason Stop Dose Admin Acetaminophen 650 mg 05/31/20 00:01 06/26/20 02:23 Acetaminophen 325 Mg Tablet PO 650 mg Q6H PRN Administration Pain, Mild (Pain Scale 1-3) Al Hydroxide/Mg Hydroxide 30 ml 05/31/20 00:01 Magnesium Hydrox/Alum Hydrox 30 Ml Oral.Susp PO Q6H PRN Heartburn/nausea Clozapine 200 mg 06/07/20 21:00 06/25/20 22:18 Clozapine 100 Mg Tablet PO 200 mg BEDTIME [place] Administration Clozapine 75 mg 06/22/20 14:15 06/26/20 09:34 Clozapine 25 Mg Tablet PO 75 mg DAILY [place] Administration Diazepam 2 mg 06/26/20 15:00 Diazepam 2 Mg Tablet PO TID [place] Hydroxyzine HCl 25 mg 05/31/20 21:00 06/26/20 02:23 Hydroxyzine Hcl 25 Mg Tablet PO 25 mg BEDTIME MRX1 PRN Administration NIGHT TIME ANXIETY Levothyroxine Sodium 100 mcg 05/31/20 06:30 06/26/20 05:53 Levothyroxine Sodium 100 Mcg Tablet PO 100 mcg DAILY@0630 [place] Administration Magnesium Hydroxide 30 ml 05/31/20 00:01 Milk Of Magnesia 30 Ml Oral.Susp PO Q24H PRN Constipation Nicotine Polacrilex 2 mg 05/31/20 00:01 Nicotine Polacrilex 2 Mg Gum BUCCAL Q2H PRN Nicotine Cravings Oxybutynin Chloride 10 mg 05/31/20 09:00 06/26/20 09:33 Oxybutynin Chloride Er 5 Mg Tab.Er.24 PO 10 mg DAILY [place] Administration Propranolol HCl 20 mg 06/02/20 21:00 06/26/20 09:33 Propranolol Hcl 10 Mg Tablet PO 20 mg TID@0830,1330,2100 [place] Administration Protocol Quetiapine Fumarate 50 mg 05/31/20 00:01 06/24/20 19:09 Quetiapine Fumarate 50 Mg Tablet PO 50 mg Q4H PRN Administration anxiety/restlessness Trazodone HCl 50 mg 06/01/20 11:41 06/26/20 02:23 Trazodone Hcl 50 Mg Tablet PO 50 mg BEDTIME PRN Administration Insomnia Allergies Allergies Allergy/AdvReac Type Severity Reaction Status Date / Time No Known Allergies Allergy Unverified 05/17/20 19:50 [No Known Allergies*] Assessment & Plan Assessment & Plan (1) OCD (obsessive compulsive disorder): Qualifiers: Obsessive-compulsive disorder type: mixed obsessional thoughts and acts Qualified Code(s): F42.2 - Mixed obsessional thoughts and acts Status: Acute Code(s): F42.9 - Obsessive-compulsive disorder, unspecified (2) Bipolar 1 disorder, mixed: Status: Acute Code(s): F31.60 - Bipolar disorder, current episode mixed, unspecified Assessment and Plan: continue ECT and Clozaril. Lower Valium Greater than 50% of the session was spent on counseling and/or coordination of care Patient educated on: medication risk/benefits and ECT Reason for contiued inpatient stay Substantial Risk for: harm to self and rapid decompensation
[2020-06-26 13:15] VITALS: BP 122/82; PULSE 101
[2020-06-26] MEDS: diazePAM 2 MG TABLET PO ×2 (15:32→22:26)
[2020-06-26] MEDS: Magnesium Hydrox/Alum Hydrox 30 ML ORAL.SUSP PO (19:34)
[2020-06-26] MEDS: QUEtiapine Fumarate 50 MG TABLET PO (20:14)
[2020-06-26] MEDS: cloZAPine 100 MG TABLET 200 MG PO (22:26)
[2020-06-26 22:27] VITALS: BP 130/84; PULSE 92
[2020-06-27] VITALS (14 sets, daily range): BP systolic 102–132; BP diastolic 68–82; PULSE 83–103; RESP 14–17; TEMP 35.9–36.6; O2SAT 92–97
--- NOTE | 2020-06-27 08:01 | MHC.SHP ---
Pre-Procedural Eval Section A The patient is an INPATIENT: Yes Changes since office visit: Yes Changes in Medication and Yes Patient answered all questions; No Cold of Flu in the past 2 weeks and No New Medical Problems The History & Physical has been completed within 30 days and I have reviewed it.: Yes Section B Chief Complaint: Mdd Allergies: Allergies Allergy/AdvReac Type Severity Reaction Status Date / Time No Known Allergies Allergy Unverified 05/17/20 19:50 [No Known Allergies*] Plan Patient has been examined and remains a candidate for the planned procedure
--- NOTE | 2020-06-27 08:02 | HO.ECTPROC ---
ECT Procedure Note Diagnosis/Treatment Diagnosis: Bipolar disorder Current Treatment Number: 4 Treatment: Series Interval Clinical Notes: pt less agitated ECT Settings Device: THYMATRON DGx Electrode Placement: Bifrontal Program/Pulse Width: 0.25 Energy Percent: 100 Seizure Duration By EEG (in seconds): 24 Medications Administration General Anesthetic: Etomidate (14) Muscle Relaxant: Succinylcholine (80) Ancillary Medications Analgesics: Torodol - Pre ECT (4) Anti-emetics: Zofran - Pre ECT (4) Miscillaneous Medications: Midazolam (2 mg) Airway Management Airway Management: Bag Mask Ventilation Treatment Recommendations Electrode Placement: Bifrontal Program/Pulse Width: 0.50 Energy Percent: 100 Notes: suggest flumazenil Pt Tolerated Procedure w/o Issue: Yes
--- NOTE | 2020-06-27 08:11 | HO.ANESPROP2 ---
[facility] Past Medical History Medical History Bipolar 1 disorder, mixed Hypothyroidism OCD (obsessive compulsive disorder) Social History Social History Smoking Status: Former smoker Packs Per Day: 1 Cigarettes Per Day: 20.0 Years Smoked: 15 Smoked in Last 30 Days: No Use of substances other than those prescribed or required for medical reasons: No Substance Use Type Other:: pt states history of marijuana and cocaine use years ago Currently Displaying Signs/Symptoms of Drug Intoxication Withdrawal: No Have you been hit, kicked, punched, or otherwise hurt by someone within the past year? If so, by whom?: No Advance Directives: No Advance Directives Information Provided: No Advance Directives on File: No Do you have thoughts of harming others: None Do you have a plan to hurt others: No Plan Recently lost weight without trying: Unsure Meds Allergies Allergy/AdvReac Type Severity Reaction Status Date / Time No Known Allergies Allergy Unverified 05/17/20 19:50 [No Known Allergies*] Home Medications Medication Instructions Recorded Confirmed Type diazepam 10 mg PO BID PRN 05/30/20 05/30/20 History divalproex 500 mg PO BID 05/30/20 05/30/20 History levothyroxine 100 mcg PO DAILY 05/30/20 05/30/20 History lurasidone 40 mg PO DAILY 05/30/20 05/30/20 History oxybutynin chloride 10 mg PO DAILY 05/30/20 05/30/20 History quetiapine 200 mg PO BEDTIME 05/30/20 05/30/20 History Exam Exam Date and Time: June 27, 2020 0811 Height,Weight and Vital Signs: Height 5 ft 1 in Weight 79.3 kg Last Vital Signs Temp 96.7 F L 06/27/20 07:29 Pulse 89 06/27/20 07:29 Resp 16 06/27/20 07:29 BP 102/69 06/27/20 07:29 Pulse Ox 97 06/27/20 07:29 Pertinent Lab Results Pertinent Lab Results: Laboratory Tests 05/08/20 05/09/20 05/11/20 20:32 16:31 08:02 WBC RBC Hgb Hct MCV MCH MCHC RDW RDW Coeff of Jacob Plt Count MPV Immature Gran % (Auto) Neut % (Auto) Lymph % (Auto) [place] % (Auto) Eos % (Auto) Baso % (Auto) Neut # (Auto) Lymph # (Auto) [place] # (Auto) Eos # (Auto) Baso # (Auto) Abs Immat Gran (auto) Absolute Neuts (auto) Absolute Lymphs (auto) Absolute Monos (auto) Absolute Eos (auto) Absolute Basos (auto) Absolute Nucleated RBC Nucleated RBC % (auto) Absolute Neutrophils Sodium 140 Potassium 4.4 Chloride 106 Carbon Dioxide Bicarbonate 25 Anion Gap 13 BUN 14 Creatinine 0.83 Estimated Creat Clear 91.2 Estim Creat Clear Calc Estimated GFR Est GFR (Non-Af Amer) > 60 Random Glucose Fasting Glucose 91 Calcium 8.8 D Total Bilirubin 0.6 AST 11 ALT 12 Alkaline Phosphatase 54 D Total Protein 6.2 L Albumin 3.9 Vitamin B12 Folate Free T4 1.16 TSH 3rd Generation 1.08 Urine Opiates Screen NOT DETECTED Ur Barbiturates Screen NOT DETECTED Valproic Acid 50.6 Phencyclidine Screen NOT DETECTED Clozapine Norclozapine Ur Amphetamines Screen NOT DETECTED U Benzodiazepines Scrn POSITIVE H Urine Cocaine Screen NOT DETECTED U Cannabinoids Screen NOT DETECTED Coronavirus (PCR) NEGATIVE HIV 1&2 Antigen & Ab 05/11/20 05/11/20 05/16/20 08:02 08:02 12:00 WBC 7.4 Cancelled RBC 4.49 Cancelled Hgb 13.3 Cancelled Hct 40.6 Cancelled MCV 90.4 Cancelled MCH 29.6 Cancelled MCHC 32.8 Cancelled RDW RDW Coeff of Jacob 13.2 Cancelled Plt Count 288 Cancelled MPV 11.0 Cancelled Immature Gran % (Auto) 0.3 Cancelled Neut % (Auto) 51.9 Cancelled Lymph % (Auto) 35.4 Cancelled [place] % (Auto) 11.6 H Cancelled Eos % (Auto) 0.1 Cancelled Baso % (Auto) 0.7 Cancelled Neut # (Auto) Lymph # (Auto) [place] # (Auto) Eos # (Auto) Baso # (Auto) Abs Immat Gran (auto) 0.02 Cancelled Absolute Neuts (auto) Absolute Lymphs (auto) 2.6 Cancelled Absolute Monos (auto) 0.9 Cancelled Absolute Eos (auto) 0.0 Cancelled Absolute Basos (auto) 0.1 Cancelled Absolute Nucleated RBC 0.000 Cancelled Nucleated RBC % (auto) 0.0 Cancelled Absolute Neutrophils 3.9 Sodium Potassium Chloride Carbon Dioxide Bicarbonate Anion Gap BUN Creatinine Estimated Creat Clear Estim Creat Clear Calc Estimated GFR Est GFR (Non-Af Amer) Random Glucose Fasting Glucose Calcium Total Bilirubin AST ALT Alkaline Phosphatase Total Protein Albumin Vitamin B12 998 H Folate 15.9 Free T4 TSH 3rd Generation Urine Opiates Screen Ur Barbiturates Screen Valproic Acid Phencyclidine Screen Clozapine Norclozapine Ur Amphetamines Screen U Benzodiazepines Scrn Urine Cocaine Screen U Cannabinoids Screen Coronavirus (PCR) HIV 1&2 Antigen & Ab 05/17/20 05/18/20 05/23/20 07:52 07:16 08:00 WBC 7.8 RBC 4.47 Hgb 13.4 Hct 40.5 MCV 90.6 MCH 30.0 MCHC 33.1 RDW RDW Coeff of Jacob 13.0 Plt Count 278 MPV 10.8 Immature Gran % (Auto) 0.3 Neut % (Auto) 51.5 Lymph % (Auto) 33.5 [place] % (Auto) 8.8 Eos % (Auto) 5.5 H Baso % (Auto) 0.4 Neut # (Auto) Lymph # (Auto) [place] # (Auto) Eos # (Auto) Baso # (Auto) Abs Immat Gran (auto) 0.02 Absolute Neuts (auto) Absolute Lymphs (auto) 2.6 Absolute Monos (auto) 0.7 Absolute Eos (auto) 0.4 Absolute Basos (auto) 0.0 Absolute Nucleated RBC 0.000 Nucleated RBC % (auto) 0.0 Absolute Neutrophils 4.0 Sodium Potassium Chloride Carbon Dioxide Bicarbonate Anion Gap BUN Creatinine Estimated Creat Clear Estim Creat Clear Calc Estimated GFR Est GFR (Non-Af Amer) Random Glucose Fasting Glucose Calcium Total Bilirubin AST ALT Alkaline Phosphatase Total Protein Albumin Vitamin B12 Folate Free T4 TSH 3rd Generation Urine Opiates Screen Ur Barbiturates Screen Valproic Acid Phencyclidine Screen Clozapine Cancelled Norclozapine Cancelled Ur Amphetamines Screen U Benzodiazepines Scrn Urine Cocaine Screen U Cannabinoids Screen Coronavirus (PCR) HIV 1&2 Antigen & Ab NONREACTIVE 05/24/20 06/02/20 06/04/20 09:20 10:41 09:51 WBC 9.4 RBC Hgb Hct MCV MCH MCHC RDW RDW Coeff of Jacob Plt Count MPV Immature Gran % (Auto) Neut % (Auto) Lymph % (Auto) [place] % (Auto) Eos % (Auto) Baso % (Auto) Neut # (Auto) 7.6 Lymph # (Auto) [place] # (Auto) Eos # (Auto) Baso # (Auto) Abs Immat Gran (auto) Absolute Neuts (auto) Absolute Lymphs (auto) Absolute Monos (auto) Absolute Eos (auto) Absolute Basos (auto) Absolute Nucleated RBC Nucleated RBC % (auto) Absolute Neutrophils 5.3 Sodium Potassium Chloride Carbon Dioxide Bicarbonate Anion Gap BUN Creatinine Estimated Creat Clear Estim Creat Clear Calc Estimated GFR Est GFR (Non-Af Amer) Random Glucose Fasting Glucose Calcium Total Bilirubin AST ALT Alkaline Phosphatase Total Protein Albumin Vitamin B12 Folate Free T4 TSH 3rd Generation Urine Opiates Screen Ur Barbiturates Screen Valproic Acid Phencyclidine Screen Clozapine 419 Norclozapine 111 Ur Amphetamines Screen U Benzodiazepines Scrn Urine Cocaine Screen U Cannabinoids Screen Coronavirus (PCR) HIV 1&2 Antigen & Ab 06/09/20 06/14/20 06/16/20 09:39 06:57 13:13 WBC RBC Hgb Hct MCV MCH MCHC RDW RDW Coeff of Jacob Plt Count MPV Immature Gran % (Auto) Neut % (Auto) Lymph % (Auto) [place] % (Auto) Eos % (Auto) Baso % (Auto) Neut # (Auto) Lymph # (Auto) [place] # (Auto) Eos # (Auto) Baso # (Auto) Abs Immat Gran (auto) Absolute Neuts (auto) 6.8 Absolute Lymphs (auto) Absolute Monos (auto) Absolute Eos (auto) Absolute Basos (auto) Absolute Nucleated RBC Nucleated RBC % (auto) Absolute Neutrophils Sodium Potassium Chloride Carbon Dioxide Bicarbonate Anion Gap BUN Creatinine Estimated Creat Clear Estim Creat Clear Calc Estimated GFR Est GFR (Non-Af Amer) Random Glucose Fasting Glucose Calcium Total Bilirubin AST ALT Alkaline Phosphatase Total Protein Albumin Vitamin B12 Folate Free T4 TSH 3rd Generation Urine Opiates Screen Ur Barbiturates Screen Valproic Acid Phencyclidine Screen Clozapine 451 289 Norclozapine 115 110 Ur Amphetamines Screen U Benzodiazepines Scrn Urine Cocaine Screen U Cannabinoids Screen Coronavirus (PCR) HIV 1&2 Antigen & Ab 06/16/20 06/16/20 06/18/20 13:13 13:13 07:44 WBC 14.6 H 9.5 RBC 4.63 4.94 Hgb 13.9 14.9 Hct 41.8 45.9 MCV 90.3 92.9 MCH 30.0 30.2 MCHC 33.3 32.5 RDW 13.2 13.4 RDW Coeff of Jacob Plt Count 345 303 MPV 10.5 10.3 Immature Gran % (Auto) 0.4 0.5 H Neut % (Auto) 75.0 H 47.0 Lymph % (Auto) 13.8 L 37.2 [place] % (Auto) 6.4 9.4 Eos % (Auto) 3.9 5.3 H Baso % (Auto) 0.5 0.6 Neut # (Auto) Lymph # (Auto) 2.0 3.5 [place] # (Auto) 0.9 0.9 Eos # (Auto) 0.6 H 0.5 H Baso # (Auto) 0.1 0.1 Abs Immat Gran (auto) 0.06 H 0.05 H Absolute Neuts (auto) 10.9 H 4.5 Absolute Lymphs (auto) Absolute Monos (auto) Absolute Eos (auto) Absolute Basos (auto) Absolute Nucleated RBC 0.000 0.000 Nucleated RBC % (auto) 0.0 0.0 Absolute Neutrophils Sodium Potassium Chloride Carbon Dioxide Bicarbonate Anion Gap BUN Creatinine Estimated Creat Clear Estim Creat Clear Calc Estimated GFR Est GFR (Non-Af Amer) Random Glucose Fasting Glucose Calcium Total Bilirubin AST ALT Alkaline Phosphatase Total Protein Albumin Vitamin B12 Folate Free T4 TSH 3rd Generation Urine Opiates Screen Ur Barbiturates Screen Valproic Acid 72.7 Phencyclidine Screen Clozapine Norclozapine Ur Amphetamines Screen U Benzodiazepines Scrn Urine Cocaine Screen U Cannabinoids Screen Coronavirus (PCR) HIV 1&2 Antigen & Ab 06/18/20 06/19/20 06/23/20 07:44 16:16 09:57 WBC 9.9 RBC Hgb Hct MCV MCH MCHC RDW RDW Coeff of Jacob Plt Count MPV Immature Gran % (Auto) Neut % (Auto) Lymph % (Auto) [place] % (Auto) Eos % (Auto) Baso % (Auto) Neut # (Auto) Lymph # (Auto) [place] # (Auto) Eos # (Auto) Baso # (Auto) Abs Immat Gran (auto) Absolute Neuts (auto) 5.7 Absolute Lymphs (auto) Absolute Monos (auto) Absolute Eos (auto) Absolute Basos (auto) Absolute Nucleated RBC Nucleated RBC % (auto) Absolute Neutrophils Sodium 140 Potassium 4.5 Chloride 103 Carbon Dioxide 28 Bicarbonate Anion Gap 14 BUN 18 H Creatinine 0.80 Estimated Creat Clear Estim Creat Clear Calc 83.6 Estimated GFR > 60 Est GFR (Non-Af Amer) Random Glucose 99 Fasting Glucose Calcium 9.4 Total Bilirubin 0.2 AST 15 ALT 18 Alkaline Phosphatase 61 Total Protein 6.9 Albumin 4.1 Vitamin B12 Folate Free T4 TSH 3rd Generation Urine Opiates Screen Ur Barbiturates Screen Valproic Acid 75.0 Phencyclidine Screen Clozapine Norclozapine Ur Amphetamines Screen U Benzodiazepines Scrn Urine Cocaine Screen U Cannabinoids Screen Coronavirus (PCR) HIV 1&2 Antigen & Ab Assessment and Plan Assessment Anesthesia Assessment: Anesthesia Plan Discussed and Chart Reviewed Final Anesthetic Review NPO: Yes ASA Class: II Final Preanesthetic Review: No Changes in Pt Med Stat, Meds/Allgs Chart Reviewed, Consent Obtained/Reviewed and Anes Risks/Benef Reviewed Patient Risk: Low Procedure Risk: Low Anesthetic Plan Anesthetic Plan: GA Disposition: Standard PACU
[2020-06-27] MEDS: Propranolol HCL 10 MG TABLET 20 MG PO ×3 (10:21→22:11)
[2020-06-27] MEDS: diazePAM 2 MG TABLET PO ×3 (10:22→22:11)
[2020-06-27] MEDS: cloZAPine 25 MG TABLET 75 MG PO (10:22)
[2020-06-27] MEDS: Levothyroxine Sodium 100 MCG TABLET PO (10:22)
[2020-06-27] MEDS: Divalproex Sodium ER 250 MG TAB.ER.24H PO (10:22)
--- NOTE | 2020-06-27 12:18 | HO.ECTPROC ---
ECT Procedure Note ECT Settings Device: THYMATRON DGx
[2020-06-27] MEDS: Acetaminophen 325 MG TABLET 650 MG PO (14:02)
[2020-06-27] MEDS: cloZAPine 100 MG TABLET 200 MG PO (22:11)
--- NOTE | 2020-06-27 22:40 | P.PNPSI_ITS ---
Subjective Subjective Date of Service: 06/28/20 Reason For Visit: Mdd Subjective Notes: Conditional Voluntary Interim History: the patient is calmer flat remains depressed a lot of self hatred records reviewed from [place] patient did have bitemporal ECT Medication Compliance: Yes Side effects from medications: Yes Mental Status Exam Mental Status Exam Narrative: odd affect, agitated, very fearful this am ; noted to have periods of severe agitation restlessness thought she would be better off denies active plan in this setting but clearly suffering obssessional anxiety ruminating at times heterosexual, labile Patient Appearance: Disheveled and Appropriate Patient Orientation: Person, Place and Situation Level of Consciousness: Awake and Restless Patient Behavior: Cooperative, Anxious, Fatigued and Crying Mood Description: Depressed, Anxious, Labile, Blunted and Angry Affect Description: Depressed, Anxious, Labile, Angry and Apprehensive Patient Cognition Impaired: No Ability to Follow Directions: Fair Speech Pattern: Perseverating and Pressured Memory Description: Episodic Impaired and Working Impaired Diagnostics Vital Signs (24Hr): Vital Signs - 24 hr 06/27/20 06:10 06/27/20 06:15 06/27/20 07:29 Temperature 96.7 F L 97.0 F 96.7 F L Pulse Rate 89 90 89 Respiratory Rate 16 16 16 Blood Pressure 102/69 117/72 102/69 Pulse Oximetry 97 94 97 06/27/20 08:30 06/27/20 08:35 06/27/20 08:40 Temperature 97.8 F Pulse Rate 102 H 92 88 Respiratory Rate 16 17 16 Blood Pressure 125/82 113/78 119/82 Pulse Oximetry 94 97 97 06/27/20 08:45 06/27/20 08:50 06/27/20 09:05 Temperature 97.1 F Pulse Rate 94 92 83 Respiratory Rate 15 16 16 Blood Pressure 116/73 117/75 108/78 Pulse Oximetry 95 94 92 06/27/20 09:19 06/27/20 09:35 06/27/20 10:21 Temperature 97.4 F Pulse Rate 92 101 H 101 H Respiratory Rate 17 14 Blood Pressure 110/68 123/75 123/75 Pulse Oximetry 94 96 06/27/20 14:02 06/27/20 22:11 Temperature Pulse Rate 103 H 89 Respiratory Rate Blood Pressure 132/81 110/68 Pulse Oximetry Body Mass Index 33.0 Labs Results: 06/23/20 09:57 06/19/20 16:16 Medications Medications Current Medications Generic Name Dose Route Start Last Admin Trade Name Freq PRN Reason Stop Dose Admin Acetaminophen 650 mg 05/31/20 00:01 06/27/20 14:02 Acetaminophen 325 Mg Tablet PO 650 mg Q6H PRN Administration Pain, Mild (Pain Scale 1-3) Al Hydroxide/Mg Hydroxide 30 ml 05/31/20 00:01 06/26/20 19:34 Magnesium Hydrox/Alum Hydrox 30 Ml Oral.Susp PO 30 ml Q6H PRN Administration Heartburn/nausea Clozapine 200 mg 06/07/20 21:00 06/27/20 22:11 Clozapine 100 Mg Tablet PO 200 mg BEDTIME [place] Administration Clozapine 75 mg 06/22/20 14:15 06/27/20 10:22 Clozapine 25 Mg Tablet PO 75 mg DAILY [place] Administration Diazepam 2 mg 06/26/20 15:00 06/27/20 22:11 Diazepam 2 Mg Tablet PO 2 mg TID [place] Administration Divalproex Sodium 250 mg 06/27/20 09:00 06/27/20 10:22 Divalproex Sodium Er 250 Mg Tab.Er.24h PO 250 mg DAILY [place] Administration Hydroxyzine HCl 25 mg 05/31/20 21:00 06/26/20 02:23 Hydroxyzine Hcl 25 Mg Tablet PO 25 mg BEDTIME MRX1 PRN Administration NIGHT TIME ANXIETY Levothyroxine Sodium 100 mcg 05/31/20 06:30 06/27/20 10:22 Levothyroxine Sodium 100 Mcg Tablet PO 100 mcg DAILY@0630 [place] Administration Magnesium Hydroxide 30 ml 05/31/20 00:01 Milk Of Magnesia 30 Ml Oral.Susp PO Q24H PRN Constipation Nicotine Polacrilex 2 mg 05/31/20 00:01 Nicotine Polacrilex 2 Mg Gum BUCCAL Q2H PRN Nicotine Cravings Oxybutynin Chloride 10 mg 05/31/20 09:00 06/27/20 10:21 Oxybutynin Chloride Er 5 Mg Tab.Er.24 PO 10 mg DAILY [place] Administration Propranolol HCl 20 mg 06/02/20 21:00 06/27/20 22:11 Propranolol Hcl 10 Mg Tablet PO 20 mg TID@0830,1330,2100 [place] Administration Protocol Quetiapine Fumarate 50 mg 05/31/20 00:01 06/26/20 20:14 Quetiapine Fumarate 50 Mg Tablet PO 50 mg Q4H PRN Administration anxiety/restlessness Trazodone HCl 50 mg 06/01/20 11:41 06/26/20 02:23 Trazodone Hcl 50 Mg Tablet PO 50 mg BEDTIME PRN Administration Insomnia Allergies Allergies Allergy/AdvReac Type Severity Reaction Status Date / Time No Known Allergies Allergy Unverified 05/17/20 19:50 [No Known Allergies*] Assessment & Plan Assessment & Plan (1) OCD (obsessive compulsive disorder): Qualifiers: Obsessive-compulsive disorder type: mixed obsessional thoughts and acts Qualified Code(s): F42.2 - Mixed obsessional thoughts and acts Status: Acute Code(s): F42.9 - Obsessive-compulsive disorder, unspecified (2) Bipolar 1 disorder, mixed: Status: Acute Code(s): F31.60 - Bipolar disorder, current episode mixed, unspecified Assessment and Plan: continue ECT changed to bitemporal maintain low-dose Depakote in the morning patient overly sedated on Clozaril in morning change again to bedtime Greater than 50% of the session was spent on counseling and/or coordination of care Patient educated on: ECT and therapeutic strategies Informed Consent: understands Reason for contiued inpatient stay Substantial Risk for: harm to self and rapid decompensation
[2020-06-28] MEDS: Levothyroxine Sodium 100 MCG TABLET PO (05:49)
[2020-06-28 06:40] VITALS: BP 96/51; PULSE 84; RESP 20; TEMP 36.4
[2020-06-28] MEDS: diazePAM 2 MG TABLET PO ×2 (09:17→14:37)
[2020-06-28] MEDS: cloZAPine 25 MG TABLET 75 MG PO (09:17)
[2020-06-28] MEDS: Divalproex Sodium ER 250 MG TAB.ER.24H PO (09:17)
[2020-06-28 09:20] VITALS: BP 96/51; PULSE 84
[2020-06-28] MEDS: Propranolol HCL 10 MG TABLET 20 MG PO ×3 (09:20→22:18)
[2020-06-28 09:57] VITALS: BMI 74.1
[2020-06-28 14:37] VITALS: BP 96/51; PULSE 104
[2020-06-28] MEDS: Acetaminophen 325 MG TABLET 650 MG PO (20:58)
[2020-06-28 22:18] VITALS: BP 138/84; PULSE 89
[2020-06-28] MEDS: cloZAPine 100 MG TABLET 200 MG PO (22:19)
[2020-06-29] VITALS (11 sets, daily range): BP systolic 97–144; BP diastolic 57–102; PULSE 81–101; RESP 12–20; TEMP 36.3–36.6; O2SAT 94–100; BMI 34.7
[2020-06-29] MEDS: Magnesium Hydrox/Alum Hydrox 30 ML ORAL.SUSP PO (04:02)
--- NOTE | 2020-06-29 08:41 | HO.ECTPROC ---
ECT Procedure Note Diagnosis/Treatment Diagnosis: Bipolar disorder Previous ECT Date: 06/27/20 Current Treatment Number: 5 Treatment: Series Interval Clinical Notes: variable mood ECT Settings Device: THYMATRON DGx Electrode Placement: Rt temporal/ Lt frontal Program/Pulse Width: 0.25 Energy Percent: 100 Seizure Duration By EEG (in seconds): 50 By Motor Observation (in seconds): 48 Medications Administration General Anesthetic: Etomidate (14) Muscle Relaxant: Succinylcholine (80) Ancillary Medications Analgesics: Torodol - Pre ECT (4) Anti-emetics: Zofran - Pre ECT (4) Cardiovascular Medications: Labetolol (10) Miscillaneous Medications: Propofol (30) and Flumazenil (0.5) Airway Management Airway Management: Bag Mask Ventilation Treatment Recommendations Electrode Placement: Bifrontal Program/Pulse Width: 0.50 Energy Percent: 100 Notes: Had post ECT awareness and agitation. Dr Bryant suggests using Versed. Pt however noted to be markedly sedated pre-ECT. Will DW Anesthesia MD's Pt Tolerated Procedure w/o Issue: No
--- NOTE | 2020-06-29 08:41 | MHC.SHP ---
Pre-Procedural Eval Section A The patient is an INPATIENT: Yes Changes since office visit: No Cold of Flu in the past 2 weeks, No New Medical Problems, No Changes in Medication and No Patient answered all questions The History & Physical has been completed within 30 days and I have reviewed it.: Yes Section B Chief Complaint: Mdd Allergies: Allergies Allergy/AdvReac Type Severity Reaction Status Date / Time No Known Allergies Allergy Unverified 05/17/20 19:50 [No Known Allergies*] Plan Patient has been examined and remains a candidate for the planned procedure
[2020-06-29] MEDS: Lactated Ringers 1,000 ML 50 ML IVCONT (09:00)
--- NOTE | 2020-06-29 09:09 | HO.ANESPROP2 ---
[facility] Past Medical History Medical History Bipolar 1 disorder, mixed Hypothyroidism OCD (obsessive compulsive disorder) Family History Family history of problems with anesthesia: No Surgical History History of Problems with Anesthesia: No Social History Social History Smoking Status: Former smoker Packs Per Day: 1 Cigarettes Per Day: 20.0 Years Smoked: 15 Smoked in Last 30 Days: No Use of substances other than those prescribed or required for medical reasons: No Substance Use Type Other:: pt states history of marijuana and cocaine use years ago Currently Displaying Signs/Symptoms of Drug Intoxication Withdrawal: No Have you been hit, kicked, punched, or otherwise hurt by someone within the past year? If so, by whom?: No Advance Directives: No Advance Directives Information Provided: No Advance Directives on File: No Do you have thoughts of harming others: None Do you have a plan to hurt others: No Plan Recently lost weight without trying: Unsure Meds Allergies Allergy/AdvReac Type Severity Reaction Status Date / Time No Known Allergies Allergy Unverified 05/17/20 19:50 [No Known Allergies*] Home Medications Medication Instructions Recorded Confirmed Type diazepam 10 mg PO BID PRN 05/30/20 05/30/20 History divalproex 500 mg PO BID 05/30/20 05/30/20 History levothyroxine 100 mcg PO DAILY 05/30/20 05/30/20 History lurasidone 40 mg PO DAILY 05/30/20 05/30/20 History oxybutynin chloride 10 mg PO DAILY 05/30/20 05/30/20 History quetiapine 200 mg PO BEDTIME 05/30/20 05/30/20 History Exam Exam Date and Time: June 29, 2020 0909 Very sedated. Unable to stay awake even when being spoken to. Height,Weight and Vital Signs: Height 5 ft 1 in Weight 83.461 kg Last Vital Signs Temp 97.3 F 06/29/20 08:55 Pulse 89 06/29/20 08:55 Resp 16 06/29/20 08:55 BP 131/86 06/29/20 08:55 Pulse Ox 95 06/29/20 08:55 Pertinent Lab Results Pertinent Lab Results: Laboratory Tests 09/04/1905/09/20 05/11/20 20:32 16:31 08:02 WBC RBC Hgb Hct MCV MCH MCHC RDW RDW Coeff of Jacob Plt Count MPV Immature Gran % (Auto) Neut % (Auto) Lymph % (Auto) [place] % (Auto) Eos % (Auto) Baso % (Auto) Neut # (Auto) Lymph # (Auto) [place] # (Auto) Eos # (Auto) Baso # (Auto) Abs Immat Gran (auto) Absolute Neuts (auto) Absolute Lymphs (auto) Absolute Monos (auto) Absolute Eos (auto) Absolute Basos (auto) Absolute Nucleated RBC Nucleated RBC % (auto) Absolute Neutrophils Sodium 140 Potassium 4.4 Chloride 106 Carbon Dioxide Bicarbonate 25 Anion Gap 13 BUN 14 Creatinine 0.83 Estimated Creat Clear 91.2 Estim Creat Clear Calc Estimated GFR Est GFR (Non-Af Amer) > 60 Random Glucose Fasting Glucose 91 Calcium 8.8 D Total Bilirubin 0.6 AST 11 ALT 12 Alkaline Phosphatase 54 D Total Protein 6.2 L Albumin 3.9 Vitamin B12 Folate Free T4 1.16 TSH 3rd Generation 1.08 Urine Opiates Screen NOT DETECTED Ur Barbiturates Screen NOT DETECTED Valproic Acid 50.6 Phencyclidine Screen NOT DETECTED Clozapine Norclozapine Ur Amphetamines Screen NOT DETECTED U Benzodiazepines Scrn POSITIVE H Urine Cocaine Screen NOT DETECTED U Cannabinoids Screen NOT DETECTED Coronavirus (PCR) NEGATIVE HIV 1&2 Antigen & Ab 05/11/20 05/11/20 05/16/20 08:02 08:02 12:00 WBC 7.4 Cancelled RBC 4.49 Cancelled Hgb 13.3 Cancelled Hct 40.6 Cancelled MCV 90.4 Cancelled MCH 29.6 Cancelled MCHC 32.8 Cancelled RDW RDW Coeff of Jacob 13.2 Cancelled Plt Count 288 Cancelled MPV 11.0 Cancelled Immature Gran % (Auto) 0.3 Cancelled Neut % (Auto) 51.9 Cancelled Lymph % (Auto) 35.4 Cancelled [place] % (Auto) 11.6 H Cancelled Eos % (Auto) 0.1 Cancelled Baso % (Auto) 0.7 Cancelled Neut # (Auto) Lymph # (Auto) [place] # (Auto) Eos # (Auto) Baso # (Auto) Abs Immat Gran (auto) 0.02 Cancelled Absolute Neuts (auto) Absolute Lymphs (auto) 2.6 Cancelled Absolute Monos (auto) 0.9 Cancelled Absolute Eos (auto) 0.0 Cancelled Absolute Basos (auto) 0.1 Cancelled Absolute Nucleated RBC 0.000 Cancelled Nucleated RBC % (auto) 0.0 Cancelled Absolute Neutrophils 3.9 Sodium Potassium Chloride Carbon Dioxide Bicarbonate Anion Gap BUN Creatinine Estimated Creat Clear Estim Creat Clear Calc Estimated GFR Est GFR (Non-Af Amer) Random Glucose Fasting Glucose Calcium Total Bilirubin AST ALT Alkaline Phosphatase Total Protein Albumin Vitamin B12 998 H Folate 15.9 Free T4 TSH 3rd Generation Urine Opiates Screen Ur Barbiturates Screen Valproic Acid Phencyclidine Screen Clozapine Norclozapine Ur Amphetamines Screen U Benzodiazepines Scrn Urine Cocaine Screen U Cannabinoids Screen Coronavirus (PCR) HIV 1&2 Antigen & Ab 05/17/20 05/18/20 05/23/20 07:52 07:16 08:00 WBC 7.8 RBC 4.47 Hgb 13.4 Hct 40.5 MCV 90.6 MCH 30.0 MCHC 33.1 RDW RDW Coeff of Jacob 13.0 Plt Count 278 MPV 10.8 Immature Gran % (Auto) 0.3 Neut % (Auto) 51.5 Lymph % (Auto) 33.5 [place] % (Auto) 8.8 Eos % (Auto) 5.5 H Baso % (Auto) 0.4 Neut # (Auto) Lymph # (Auto) [place] # (Auto) Eos # (Auto) Baso # (Auto) Abs Immat Gran (auto) 0.02 Absolute Neuts (auto) Absolute Lymphs (auto) 2.6 Absolute Monos (auto) 0.7 Absolute Eos (auto) 0.4 Absolute Basos (auto) 0.0 Absolute Nucleated RBC 0.000 Nucleated RBC % (auto) 0.0 Absolute Neutrophils 4.0 Sodium Potassium Chloride Carbon Dioxide Bicarbonate Anion Gap BUN Creatinine Estimated Creat Clear Estim Creat Clear Calc Estimated GFR Est GFR (Non-Af Amer) Random Glucose Fasting Glucose Calcium Total Bilirubin AST ALT Alkaline Phosphatase Total Protein Albumin Vitamin B12 Folate Free T4 TSH 3rd Generation Urine Opiates Screen Ur Barbiturates Screen Valproic Acid Phencyclidine Screen Clozapine Cancelled Norclozapine Cancelled Ur Amphetamines Screen U Benzodiazepines Scrn Urine Cocaine Screen U Cannabinoids Screen Coronavirus (PCR) HIV 1&2 Antigen & Ab NONREACTIVE 05/24/20 06/02/20 06/04/20 09:20 10:41 09:51 WBC 9.4 RBC Hgb Hct MCV MCH MCHC RDW RDW Coeff of Jacob Plt Count MPV Immature Gran % (Auto) Neut % (Auto) Lymph % (Auto) [place] % (Auto) Eos % (Auto) Baso % (Auto) Neut # (Auto) 7.6 Lymph # (Auto) [place] # (Auto) Eos # (Auto) Baso # (Auto) Abs Immat Gran (auto) Absolute Neuts (auto) Absolute Lymphs (auto) Absolute Monos (auto) Absolute Eos (auto) Absolute Basos (auto) Absolute Nucleated RBC Nucleated RBC % (auto) Absolute Neutrophils 5.3 Sodium Potassium Chloride Carbon Dioxide Bicarbonate Anion Gap BUN Creatinine Estimated Creat Clear Estim Creat Clear Calc Estimated GFR Est GFR (Non-Af Amer) Random Glucose Fasting Glucose Calcium Total Bilirubin AST ALT Alkaline Phosphatase Total Protein Albumin Vitamin B12 Folate Free T4 TSH 3rd Generation Urine Opiates Screen Ur Barbiturates Screen Valproic Acid Phencyclidine Screen Clozapine 419 Norclozapine 111 Ur Amphetamines Screen U Benzodiazepines Scrn Urine Cocaine Screen U Cannabinoids Screen Coronavirus (PCR) HIV 1&2 Antigen & Ab 06/09/20 06/14/20 06/16/20 09:39 06:57 13:13 WBC RBC Hgb Hct MCV MCH MCHC RDW RDW Coeff of Jacob Plt Count MPV Immature Gran % (Auto) Neut % (Auto) Lymph % (Auto) [place] % (Auto) Eos % (Auto) Baso % (Auto) Neut # (Auto) Lymph # (Auto) [place] # (Auto) Eos # (Auto) Baso # (Auto) Abs Immat Gran (auto) Absolute Neuts (auto) 6.8 Absolute Lymphs (auto) Absolute Monos (auto) Absolute Eos (auto) Absolute Basos (auto) Absolute Nucleated RBC Nucleated RBC % (auto) Absolute Neutrophils Sodium Potassium Chloride Carbon Dioxide Bicarbonate Anion Gap BUN Creatinine Estimated Creat Clear Estim Creat Clear Calc Estimated GFR Est GFR (Non-Af Amer) Random Glucose Fasting Glucose Calcium Total Bilirubin AST ALT Alkaline Phosphatase Total Protein Albumin Vitamin B12 Folate Free T4 TSH 3rd Generation Urine Opiates Screen Ur Barbiturates Screen Valproic Acid Phencyclidine Screen Clozapine 451 289 Norclozapine 115 110 Ur Amphetamines Screen U Benzodiazepines Scrn Urine Cocaine Screen U Cannabinoids Screen Coronavirus (PCR) HIV 1&2 Antigen & Ab 06/16/20 06/16/20 06/18/20 13:13 13:13 07:44 WBC 14.6 H 9.5 RBC 4.63 4.94 Hgb 13.9 14.9 Hct 41.8 45.9 MCV 90.3 92.9 MCH 30.0 30.2 MCHC 33.3 32.5 RDW 13.2 13.4 RDW Coeff of Jacob Plt Count 345 303 MPV 10.5 10.3 Immature Gran % (Auto) 0.4 0.5 H Neut % (Auto) 75.0 H 47.0 Lymph % (Auto) 13.8 L 37.2 [place] % (Auto) 6.4 9.4 Eos % (Auto) 3.9 5.3 H Baso % (Auto) 0.5 0.6 Neut # (Auto) Lymph # (Auto) 2.0 3.5 [place] # (Auto) 0.9 0.9 Eos # (Auto) 0.6 H 0.5 H Baso # (Auto) 0.1 0.1 Abs Immat Gran (auto) 0.06 H 0.05 H Absolute Neuts (auto) 10.9 H 4.5 Absolute Lymphs (auto) Absolute Monos (auto) Absolute Eos (auto) Absolute Basos (auto) Absolute Nucleated RBC 0.000 0.000 Nucleated RBC % (auto) 0.0 0.0 Absolute Neutrophils Sodium Potassium Chloride Carbon Dioxide Bicarbonate Anion Gap BUN Creatinine Estimated Creat Clear Estim Creat Clear Calc Estimated GFR Est GFR (Non-Af Amer) Random Glucose Fasting Glucose Calcium Total Bilirubin AST ALT Alkaline Phosphatase Total Protein Albumin Vitamin B12 Folate Free T4 TSH 3rd Generation Urine Opiates Screen Ur Barbiturates Screen Valproic Acid 72.7 Phencyclidine Screen Clozapine Norclozapine Ur Amphetamines Screen U Benzodiazepines Scrn Urine Cocaine Screen U Cannabinoids Screen Coronavirus (PCR) HIV 1&2 Antigen & Ab 06/18/20 06/19/20 06/23/20 07:44 16:16 09:57 WBC 9.9 RBC Hgb Hct MCV MCH MCHC RDW RDW Coeff of Jacob Plt Count MPV Immature Gran % (Auto) Neut % (Auto) Lymph % (Auto) [place] % (Auto) Eos % (Auto) Baso % (Auto) Neut # (Auto) Lymph # (Auto) [place] # (Auto) Eos # (Auto) Baso # (Auto) Abs Immat Gran (auto) Absolute Neuts (auto) 5.7 Absolute Lymphs (auto) Absolute Monos (auto) Absolute Eos (auto) Absolute Basos (auto) Absolute Nucleated RBC Nucleated RBC % (auto) Absolute Neutrophils Sodium 140 Potassium 4.5 Chloride 103 Carbon Dioxide 28 Bicarbonate Anion Gap 14 BUN 18 H Creatinine 0.80 Estimated Creat Clear Estim Creat Clear Calc 83.6 Estimated GFR > 60 Est GFR (Non-Af Amer) Random Glucose 99 Fasting Glucose Calcium 9.4 Total Bilirubin 0.2 AST 15 ALT 18 Alkaline Phosphatase 61 Total Protein 6.9 Albumin 4.1 Vitamin B12 Folate Free T4 TSH 3rd Generation Urine Opiates Screen Ur Barbiturates Screen Valproic Acid 75.0 Phencyclidine Screen Clozapine Norclozapine Ur Amphetamines Screen U Benzodiazepines Scrn Urine Cocaine Screen U Cannabinoids Screen Coronavirus (PCR) HIV 1&2 Antigen & Ab Airway Mallampati Class: III TM Dist: >3cm Neck ROM: Full Heart: RRR Lungs: CTAB Assessment and Plan Assessment Anesthesia Assessment: Anesthesia Plan Discussed and Chart Reviewed Final Anesthetic Review NPO: Yes ASA Class: III Final Preanesthetic Review: No Changes in Pt Med Stat, Meds/Allgs Chart Reviewed and Anes Risks/Benef Reviewed Patient Risk: Intermediate Procedure Risk: Intermediate Anesthetic Plan Anesthetic Plan: GA Disposition: Standard PACU and Inp. Admit - Standard Bed
[2020-06-29] MEDS: Propranolol HCL 10 MG TABLET 20 MG PO ×3 (10:24→19:41)
[2020-06-29] MEDS: Divalproex Sodium ER 250 MG TAB.ER.24H PO (10:25)
[2020-06-29] MEDS: Levothyroxine Sodium 100 MCG TABLET PO (10:25)
--- NOTE | 2020-06-29 10:50 | HO.PSYCHPN ---
Subjective Subjective Reason For Visit: Mdd Subjective Notes: Conditional Voluntary Interim History: Pt had difficult time with ect Medication Compliance: Yes Side effects from medications: Yes Mental Status Exam Mental Status Exam Narrative: odd affect, agitated, very fearful this am ; noted to have periods of severe agitation restlessness thought she would be better off denies active plan in this setting but clearly suffering obssessional anxiety ruminating at times heterosexual, labile Patient Appearance: Disheveled and Appropriate Patient Orientation: Person, Place and Situation Level of Consciousness: Awake and Restless Patient Behavior: Cooperative, Anxious, Fatigued and Crying Mood Description: Depressed, Anxious, Labile, Blunted and Angry Affect Description: Depressed, Anxious, Labile, Angry and Apprehensive Patient Cognition Impaired: No Ability to Follow Directions: Fair Speech Pattern: Perseverating and Pressured Memory Description: Episodic Impaired and Working Impaired Diagnostics Vital Signs (24Hr): Vital Signs - 24 hr 06/28/20 14:37 06/28/20 22:18 06/29/20 05:55 Temperature 97.7 F Pulse Rate 104 H 89 94 Respiratory Rate 16 Blood Pressure 96/51 L 138/84 116/65 Pulse Oximetry 96 06/29/20 08:55 06/29/20 09:30 06/29/20 09:35 Temperature 97.3 F 97.7 F Pulse Rate 89 101 H 91 Respiratory Rate 16 12 20 Blood Pressure 131/86 144/94 H 144/91 H Pulse Oximetry 95 100 96 06/29/20 09:40 06/29/20 09:45 06/29/20 09:55 Temperature Pulse Rate 90 92 91 Respiratory Rate 20 20 20 Blood Pressure 130/96 H 124/99 H 129/89 Pulse Oximetry 94 94 96 06/29/20 10:24 Temperature Pulse Rate 94 Respiratory Rate Blood Pressure 137/102 H Pulse Oximetry Body Mass Index 34.7 Labs Results: 06/23/20 09:57 06/19/20 16:16 Medications Medications Current Medications Generic Name Dose Route Start Last Admin Trade Name Freq PRN Reason Stop Dose Admin Acetaminophen 650 mg 05/31/20 00:01 06/28/20 20:58 Acetaminophen 325 Mg Tablet PO 650 mg Q6H PRN Administration Pain, Mild (Pain Scale 1-3) Acetaminophen 650 mg 06/29/20 08:53 Acetaminophen 325 Mg Tablet PO ONCE PRN Pain, Mild (Pain Scale 1-3) Al Hydroxide/Mg Hydroxide 30 ml 10/01/20 00:01 06/29/20 04:02 Magnesium Hydrox/Alum Hydrox 30 Ml Oral.Susp PO 30 ml Q6H PRN Administration Heartburn/nausea Clozapine 200 mg 06/07/20 21:00 06/28/20 22:19 Clozapine 100 Mg Tablet PO 200 mg BEDTIME [place] Administration Diazepam 2 mg 06/29/20 10:11 Diazepam 2 Mg Tablet PO TID PRN anxiety/restlessness Divalproex Sodium 250 mg 06/27/20 09:00 06/29/20 10:25 Divalproex Sodium Er 250 Mg Tab.Er.24h PO 250 mg DAILY [place] Administration Hydroxyzine HCl 25 mg 05/31/20 21:00 06/26/20 02:23 Hydroxyzine Hcl 25 Mg Tablet PO 25 mg BEDTIME MRX1 PRN Administration NIGHT TIME ANXIETY Levothyroxine Sodium 100 mcg 05/31/20 06:30 06/29/20 10:25 Levothyroxine Sodium 100 Mcg Tablet PO 100 mcg DAILY@0630 [place] Administration Magnesium Hydroxide 30 ml 05/31/20 00:01 Milk Of Magnesia 30 Ml Oral.Susp PO Q24H PRN Constipation Nicotine Polacrilex 2 mg 05/31/20 00:01 Nicotine Polacrilex 2 Mg Gum BUCCAL Q2H PRN Nicotine Cravings Oxybutynin Chloride 10 mg 05/31/20 09:00 06/29/20 10:26 Oxybutynin Chloride Er 5 Mg Tab.Er.24 PO 10 mg DAILY [place] Administration Propranolol HCl 20 mg 06/02/20 21:00 06/29/20 10:24 Propranolol Hcl 10 Mg Tablet PO 20 mg TID@0830,1330,2100 [place] Administration Protocol Quetiapine Fumarate 50 mg 05/31/20 00:01 06/26/20 20:14 Quetiapine Fumarate 50 Mg Tablet PO 50 mg Q4H PRN Administration anxiety/restlessness Trazodone HCl 50 mg 06/01/20 11:41 06/26/20 02:23 Trazodone Hcl 50 Mg Tablet PO 50 mg BEDTIME PRN Administration Insomnia Allergies Allergies Allergy/AdvReac Type Severity Reaction Status Date / Time No Known Allergies Allergy Unverified 05/17/20 19:50 [No Known Allergies*] Assessment & Plan Assessment & Plan (1) OCD (obsessive compulsive disorder): Qualifiers: Obsessive-compulsive disorder type: mixed obsessional thoughts and acts Qualified Code(s): F42.2 - Mixed obsessional thoughts and acts Status: Acute Code(s): F42.9 - Obsessive-compulsive disorder, unspecified (2) Bipolar 1 disorder, mixed: Status: Acute Code(s): F31.60 - Bipolar disorder, current episode mixed, unspecified Assessment and Plan: continue ECT changed to bitemporal maintain low-dose Depakote in the morning patient overly sedated on Clozaril in morning change again to bedtime Greater than 50% of the session was spent on counseling and/or coordination of care
[2020-06-29] MEDS: QUEtiapine Fumarate 50 MG TABLET PO (12:45)
[2020-06-29] MEDS: diazePAM 2 MG TABLET PO ×3 (12:45→19:46)
[2020-06-29] MEDS: Acetaminophen 325 MG TABLET 650 MG PO (14:07)
[2020-06-29] MEDS: cloZAPine 100 MG TABLET 200 MG PO (19:41)
[2020-06-29] MEDS: hydrOXYzine HCL 25 MG TABLET PO (19:41)
[2020-06-29] MEDS: traZODone HCL 50 MG TABLET PO (19:41)
--- NOTE | 2020-06-29 22:22 | PC.NURSE ---
Addendum entered by Pranay Pena RN 06/29/20 22:33: She had ECT this morning approx 0900 Original Note: Dariela Del Castillo was given her scheduled night medications 30 mins earlier per doctors order -DR. Ramirez. Dariela did not comply to any nursing interventions and was difficult to redirect. Dariela kept yelling, screaming, clinging fist and throwing herself on the floor. Medications effective and Dariela became calm later on in the shift. She had ECT
[2020-06-30 06:15] VITALS: BP 113/62; PULSE 64; RESP 20; TEMP 36.2
[2020-06-30] MEDS: Levothyroxine Sodium 100 MCG TABLET PO (06:52)
[2020-06-30 09:02] VITALS: BP 113/62; PULSE 64
[2020-06-30] MEDS: diazePAM 2 MG TABLET PO ×3 (09:02→21:52)
[2020-06-30] MEDS: Propranolol HCL 10 MG TABLET 20 MG PO ×3 (09:02→21:52)
[2020-06-30] MEDS: Divalproex Sodium ER 250 MG TAB.ER.24H PO (09:03)
--- NOTE | 2020-06-30 10:58 | HO.PSYCHPN ---
Subjective Subjective Date of Service: 06/30/20 Reason For Visit: severe mood lability Subjective Notes: Conditional Voluntary Interim History: Pateint wailing and throwing self on floor- saying you don't care Patient had been pacing [place] with me, has terrible time when you disengage with patients, becomes distraught wanting hugs, redirected from hugging providers/ other patients- got several prns of haldol , 1:30 and 5:30 with fair effect after second with added vistaril 50mg Medication Compliance: Yes Side effects from medications: No Attending Groups: No Review of Systems Acute medical concerns: No Medical Review of Systems: unchanged Review of Systems Review of Systems Yes all other systems are reviewed and are negative Mental Status Exam Mental Status Exam Narrative: wailing throwing self on floor Patient Appearance: Disheveled and Unkempt Patient Orientation: Person, Place and Situation Level of Consciousness: Awake, Restless and Inappropriate Patient Behavior: Talkative, Posturing, Hyperactive, Self Manipulative, Fearful, Invasion - Personal Space and Pacing Mood Description: Labile Affect Description: Labile Patient Cognition Impaired: No Ability to Follow Directions: Fair Speech Pattern: Rapid Hallucinations: Auditory Thought Process: Illogical and Rumination Thought Content: positive for Perseveration and positive for Suicidal Ideation Depressive Symptoms: Diff. Making Decisions, Muscle Tension, Crying Spells, Feelings of Worthlessness, Hopelessness, Unhappiness, Thoughts of /Suicide and Difficulty Concentrating Abnormal Motor Activity Signs and Symptoms: Agitation and Restlessness Judgement: Poor Diagnostics Vital Signs (24Hr): Vital Signs - 24 hr 06/29/20 14:07 06/29/20 18:00 06/29/20 19:41 Temperature 97.9 F Pulse Rate 92 81 85 Respiratory Rate Blood Pressure 124/64 97/57 L 128/89 06/30/20 06:15 06/30/20 09:02 Temperature 97.2 F Pulse Rate 64 64 Respiratory Rate 20 Blood Pressure 113/62 113/62 Body Mass Index 34.7 Labs Results: 06/23/20 09:57 06/19/20 16:16 Medications Medications Current Medications Generic Name Dose Route Start Last Admin Trade Name Freq PRN Reason Stop Dose Admin Acetaminophen 650 mg 05/31/20 00:01 06/29/20 14:07 Acetaminophen 325 Mg Tablet PO 650 mg Q6H PRN Administration Pain, Mild (Pain Scale 1-3) Acetaminophen 650 mg 06/29/20 08:53 Acetaminophen 325 Mg Tablet PO ONCE PRN Pain, Mild (Pain Scale 1-3) Al Hydroxide/Mg Hydroxide 30 ml 05/31/20 00:01 06/29/20 04:02 Magnesium Hydrox/Alum Hydrox 30 Ml Oral.Susp PO 30 ml Q6H PRN Administration Heartburn/nausea Clozapine 200 mg 06/07/20 21:00 06/29/20 19:41 Clozapine 100 Mg Tablet PO 200 mg BEDTIME [place] Administration Diazepam 2 mg 06/29/20 10:11 06/30/20 09:02 Diazepam 2 Mg Tablet PO 2 mg TID PRN Administration anxiety/restlessness Divalproex Sodium 250 mg 06/27/20 09:00 06/30/20 09:03 Divalproex Sodium Er 250 Mg Tab.Er.24h PO 250 mg DAILY [place] Administration Hydroxyzine HCl 25 mg 05/31/20 21:00 06/29/20 19:41 Hydroxyzine Hcl 25 Mg Tablet PO 25 mg BEDTIME MRX1 PRN Administration NIGHT TIME ANXIETY Levothyroxine Sodium 100 mcg 05/31/20 06:30 06/30/20 06:52 Levothyroxine Sodium 100 Mcg Tablet PO 100 mcg DAILY@0630 [place] Administration Magnesium Hydroxide 30 ml 05/31/20 00:01 Milk Of Magnesia 30 Ml Oral.Susp PO Q24H PRN Constipation Nicotine Polacrilex 2 mg 05/31/20 00:01 Nicotine Polacrilex 2 Mg Gum BUCCAL Q2H PRN Nicotine Cravings Oxybutynin Chloride 10 mg 05/31/20 09:00 06/30/20 09:02 Oxybutynin Chloride Er 5 Mg Tab.Er.24 PO 10 mg DAILY [place] Administration Propranolol HCl 20 mg 06/02/20 21:00 06/30/20 09:02 Propranolol Hcl 10 Mg Tablet PO 20 mg TID@0830,1330,2100 [place] Administration Protocol Quetiapine Fumarate 50 mg 05/31/20 00:01 06/29/20 12:45 Quetiapine Fumarate 50 Mg Tablet PO 50 mg Q4H PRN Administration anxiety/restlessness Trazodone HCl 50 mg 06/01/20 11:41 06/29/20 19:41 Trazodone Hcl 50 Mg Tablet PO 50 mg BEDTIME PRN Administration Insomnia Allergies Allergies Allergy/AdvReac Type Severity Reaction Status Date / Time No Known Allergies Allergy Unverified 05/17/20 19:50 [No Known Allergies*] Assessment & Plan Assessment & Plan (1) Bipolar 1 disorder, mixed: Status: Acute Code(s): F31.60 - Bipolar disorder, current episode mixed, unspecified Assessment and Plan: vs schizoaffective did better with several doses of haldol today (2) OCD (obsessive compulsive disorder): Qualifiers: Obsessive-compulsive disorder type: mixed obsessional thoughts and acts Qualified Code(s): F42.2 - Mixed obsessional thoughts and acts Status: Acute Code(s): F42.9 - Obsessive-compulsive disorder, unspecified Assessment and Plan: continue current medications Greater than 50% of the session was spent on counseling and/or coordination of care
[2020-06-30] MEDS: QUEtiapine Fumarate 50 MG TABLET PO ×3 (11:40→23:00)
[2020-06-30] MEDS: HaloperidoL 5 MG TABLET PO ×2 (13:28→17:40)
[2020-06-30 13:31] VITALS: BP 122/72; PULSE 91
[2020-06-30 14:17] LABS: Neut%MD 63.4 %; Neutrophils Absolute Auto 6.4 X10*3/uL (2.0-8.3); WBCANC 10.2 X10*3/uL
[2020-06-30 17:28] VITALS: BP 130/83; PULSE 103; TEMP 36.3
[2020-06-30] MEDS: hydrOXYzine HCL 50 MG TABLET PO (17:41)
[2020-06-30 21:52] VITALS: BP 130/83; PULSE 103
[2020-06-30] MEDS: cloZAPine 100 MG TABLET 200 MG PO (21:52)
[2020-06-30] MEDS: traZODone HCL 50 MG TABLET PO (23:54)
[2020-06-30] MEDS: hydrOXYzine HCL 25 MG TABLET PO (23:54)
[2020-07-01] MEDS: hydrOXYzine HCL 25 MG TABLET PO (01:28)
[2020-07-01] MEDS: QUEtiapine Fumarate 50 MG TABLET PO (02:36)
[2020-07-01] MEDS: Acetaminophen 325 MG TABLET 650 MG PO ×2 (05:30→18:17)
[2020-07-01] MEDS: Levothyroxine Sodium 100 MCG TABLET PO (05:31)
[2020-07-01 06:00] VITALS: BP 113/76; PULSE 106; RESP 16; TEMP 36.1; O2SAT 100
[2020-07-01] MEDS: Divalproex Sodium ER 250 MG TAB.ER.24H PO (09:07)
[2020-07-01] MEDS: HaloperidoL 5 MG TABLET PO ×3 (09:07→22:11)
[2020-07-01 09:08] VITALS: BP 113/76; PULSE 106
[2020-07-01] MEDS: diazePAM 2 MG TABLET PO ×2 (09:08→14:17)
[2020-07-01] MEDS: Propranolol HCL 10 MG TABLET 20 MG PO ×3 (09:08→22:12)
[2020-07-01 14:17] VITALS: BP 124/77; PULSE 111
--- NOTE | 2020-07-01 15:06 | HO.PSYCHPN ---
Subjective Subjective Date of Service: 07/01/20 Reason For Visit: severe mood lability Subjective Notes: Conditional Voluntary Interim History: Patient much more coherent today- talking to other patients, participating in groups terrified she is going ot lose control of her mind again yesterday got multiple doses of haldol - today started tid scheduled dosing and prns Medication Compliance: Yes Side effects from medications: No Attending Groups: Yes Mental Status Exam Mental Status Exam Narrative: Alert, eating with her roommate, and was earlier seen appropriately interacting with peers in kitchen Patient Appearance: Unkempt Patient Orientation: Person, Place, Time and Situation Level of Consciousness: Awake and Appropriate Patient Behavior: Appropriate Mood Description: Calm and Fearful (of losing control again) Ability to Follow Directions: Fair Speech Pattern: Clear Thought Process: Goal Oriented Thought Content: positive for [place] Depressive Symptoms: Insomnia and Difficulty Concentrating Judgement: Poor Diagnostics Vital Signs (24Hr): Vital Signs - 24 hr 06/30/20 17:28 06/30/20 21:52 07/01/20 06:00 Temperature 97.4 F 96.9 F Pulse Rate 103 H 103 H 106 H Respiratory Rate 16 Blood Pressure 130/83 130/83 113/76 Pulse Oximetry 100 07/01/20 09:08 07/01/20 14:17 Temperature Pulse Rate 106 H 111 H Respiratory Rate Blood Pressure 113/76 124/77 Pulse Oximetry Body Mass Index 34.7 Labs Results: 06/23/20 09:57 06/19/20 16:16 Labs: Laboratory Results - last 48 hr 06/30/20 13:54 Absolute Neuts (auto) 6.4 Medications Medications Current Medications Generic Name Dose Route Start Last Admin Trade Name Luis Enriqueq PRN Reason Stop Dose Admin Acetaminophen 650 mg 05/31/20 00:01 07/01/20 05:30 Acetaminophen 325 Mg Tablet PO 650 mg Q6H PRN Administration Pain, Mild (Pain Scale 1-3) Acetaminophen 650 mg 06/29/20 08:53 Acetaminophen 325 Mg Tablet PO ONCE PRN Pain, Mild (Pain Scale 1-3) Al Hydroxide/Mg Hydroxide 30 ml 05/31/20 00:01 06/29/20 04:02 Magnesium Hydrox/Alum Hydrox 30 Ml Oral.Susp PO 30 ml Q6H PRN Administration Heartburn/nausea Benztropine Mesylate 1 mg 06/30/20 13:09 Benztropine Mesylate 1 Mg Tablet PO TID PRN Extrapyramidal Effects Clozapine 200 mg 06/07/20 21:00 06/30/20 21:52 Clozapine 100 Mg Tablet PO 200 mg BEDTIME [place] Administration Diazepam 2 mg 06/30/20 15:00 07/01/20 14:17 Diazepam 2 Mg Tablet PO 2 mg TID [place] Administration Divalproex Sodium 250 mg 06/27/20 09:00 07/01/20 09:07 Divalproex Sodium Er 250 Mg Tab.Er.24h PO 250 mg DAILY [place] Administration Haloperidol 5 mg 06/30/20 17:11 07/01/20 09:07 Haloperidol 5 Mg Tablet PO 5 mg Q4H PRN Administration psychotic agitation Haloperidol 5 mg 07/01/20 15:00 07/01/20 14:17 Haloperidol 5 Mg Tablet PO 5 mg TID [place] Administration Hydroxyzine HCl 25 mg 05/31/20 21:00 07/01/20 01:28 EST Hydroxyzine Hcl 25 Mg Tablet PO 25 mg BEDTIME MRX1 PRN Administration NIGHT TIME ANXIETY Hydroxyzine HCl 50 mg 06/30/20 17:12 06/30/20 17:41 Hydroxyzine Hcl 50 Mg Tablet PO 50 mg Q6H PRN Administration agitation Levothyroxine Sodium 100 mcg 05/31/20 06:30 07/01/20 05:31 Levothyroxine Sodium 100 Mcg Tablet PO 100 mcg DAILY@0630 [place] Administration Magnesium Hydroxide 30 ml 05/31/20 00:01 Milk Of Magnesia 30 Ml Oral.Susp PO Q24H PRN Constipation Nicotine Polacrilex 2 mg 05/31/20 00:01 Nicotine Polacrilex 2 Mg Gum BUCCAL Q2H PRN Nicotine Cravings Oxybutynin Chloride 10 mg 05/31/20 09:00 07/01/20 09:07 Oxybutynin Chloride Er 5 Mg Tab.Er.24 PO 10 mg DAILY [place] Administration Propranolol HCl 20 mg 06/02/20 21:00 07/01/20 14:17 Propranolol Hcl 10 Mg Tablet PO 20 mg TID@0830,1330,2100 [place] Administration Protocol Quetiapine Fumarate 50 mg 05/31/20 00:01 07/01/20 02:36 Quetiapine Fumarate 50 Mg Tablet PO 50 mg Q4H PRN Administration anxiety/restlessness Trazodone HCl 50 mg 06/01/20 11:41 06/30/20 23:54 Trazodone Hcl 50 Mg Tablet PO 50 mg BEDTIME PRN Administration Insomnia Allergies Allergies Allergy/AdvReac Type Severity Reaction Status Date / Time No Known Allergies Allergy Unverified 05/17/20 19:50 [No Known Allergies*] Assessment & Plan Assessment & Plan (1) Bipolar 1 disorder, mixed: Status: Acute Code(s): F31.60 - Bipolar disorder, current episode mixed, unspecified Assessment and Plan: looking alot better on haldol Greater than 50% of the session was spent on counseling and/or coordination of care
[2020-07-01 18:00] VITALS: BP 137/86; PULSE 88; RESP 16; TEMP 36.6
[2020-07-01] MEDS: cloZAPine 100 MG TABLET 200 MG PO (22:11)
[2020-07-01 22:12] VITALS: BP 137/86; PULSE 88
[2020-07-02] VITALS (10 sets, daily range): BP systolic 111–146; BP diastolic 66–93; PULSE 73–105; RESP 16–22; TEMP 36.1–36.4; O2SAT 95–100
--- NOTE | 2020-07-02 09:00 | P.CONAN_ITS ---
FORMERLY [facility] Past Medical History Medical History Bipolar 1 disorder, mixed Hypothyroidism OCD (obsessive compulsive disorder) Social History Social History Smoking Status: Former smoker Packs Per Day: 1 Cigarettes Per Day: 20.0 Years Smoked: 15 Smoked in Last 30 Days: No Use of substances other than those prescribed or required for medical reasons: No Substance Use Type Other:: pt states history of marijuana and cocaine use years ago Currently Displaying Signs/Symptoms of Drug Intoxication Withdrawal: No Have you been hit, kicked, punched, or otherwise hurt by someone within the past year? If so, by whom?: No Advance Directives: No Advance Directives Information Provided: No Advance Directives on File: No Do you have thoughts of harming others: None Do you have a plan to hurt others: No Plan Recently lost weight without trying: Unsure Meds Allergies Allergy/AdvReac Type Severity Reaction Status Date / Time No Known Allergies Allergy Unverified 05/17/20 19:50 [No Known Allergies*] Home Medications Medication Instructions Recorded Confirmed Type diazepam 10 mg PO BID PRN 05/30/20 05/30/20 History divalproex 500 mg PO BID 05/30/20 05/30/20 History levothyroxine 100 mcg PO DAILY 05/30/20 05/30/20 History lurasidone 40 mg PO DAILY 05/30/20 05/30/20 History oxybutynin chloride 10 mg PO DAILY 05/30/20 05/30/20 History quetiapine 200 mg PO BEDTIME 05/30/20 05/30/20 History Exam Exam Date and Time: July 02, 2020 0900 Height,Weight and Vital Signs: Height 5 ft 1 in Weight 83.461 kg Last Vital Signs Temp 97.4 F 07/02/20 08:45 Pulse 98 07/02/20 08:55 Resp 18 07/02/20 08:55 BP 134/88 07/02/20 08:55 Pulse Ox 100 07/02/20 08:55 Pertinent Lab Results Pertinent Lab Results: Laboratory Tests 05/08/20 05/09/20 05/11/20 20:32 16:31 08:02 WBC RBC Hgb Hct MCV MCH MCHC RDW RDW Coeff of Jacob Plt Count MPV Immature Gran % (Auto) Neut % (Auto) Lymph % (Auto) [place] % (Auto) Eos % (Auto) Baso % (Auto) Neut # (Auto) Lymph # (Auto) [place] # (Auto) Eos # (Auto) Baso # (Auto) Abs Immat Gran (auto) Absolute Neuts (auto) Absolute Lymphs (auto) Absolute Monos (auto) Absolute Eos (auto) Absolute Basos (auto) Absolute Nucleated RBC Nucleated RBC % (auto) Absolute Neutrophils Sodium 140 Potassium 4.4 Chloride 106 Carbon Dioxide Bicarbonate 25 Anion Gap 13 BUN 14 Creatinine 0.83 Estimated Creat Clear 91.2 Estim Creat Clear Calc Estimated GFR Est GFR (Non-Af Amer) > 60 Random Glucose Fasting Glucose 91 Calcium 8.8 D Total Bilirubin 0.6 AST 11 ALT 12 Alkaline Phosphatase 54 D Total Protein 6.2 L Albumin 3.9 Vitamin B12 Folate Free T4 1.16 TSH 3rd Generation 1.08 Urine Opiates Screen NOT DETECTED Ur Barbiturates Screen NOT DETECTED Valproic Acid 50.6 Phencyclidine Screen NOT DETECTED Clozapine Norclozapine Ur Amphetamines Screen NOT DETECTED U Benzodiazepines Scrn POSITIVE H Urine Cocaine Screen NOT DETECTED U Cannabinoids Screen NOT DETECTED Coronavirus (PCR) NEGATIVE HIV 1&2 Antigen & Ab 05/11/20 05/11/20 05/16/20 08:02 08:02 12:00 WBC 7.4 Cancelled RBC 4.49 Cancelled Hgb 13.3 Cancelled Hct 40.6 Cancelled MCV 90.4 Cancelled MCH 29.6 Cancelled MCHC 32.8 Cancelled RDW RDW Coeff of Jacob 13.2 Cancelled Plt Count 288 Cancelled MPV 11.0 Cancelled Immature Gran % (Auto) 0.3 Cancelled Neut % (Auto) 51.9 Cancelled Lymph % (Auto) 35.4 Cancelled [place] % (Auto) 11.6 H Cancelled Eos % (Auto) 0.1 Cancelled Baso % (Auto) 0.7 Cancelled Neut # (Auto) Lymph # (Auto) [place] # (Auto) Eos # (Auto) Baso # (Auto) Abs Immat Gran (auto) 0.02 Cancelled Absolute Neuts (auto) Absolute Lymphs (auto) 2.6 Cancelled Absolute Monos (auto) 0.9 Cancelled Absolute Eos (auto) 0.0 Cancelled Absolute Basos (auto) 0.1 Cancelled Absolute Nucleated RBC 0.000 Cancelled Nucleated RBC % (auto) 0.0 Cancelled Absolute Neutrophils 3.9 Sodium Potassium Chloride Carbon Dioxide Bicarbonate Anion Gap BUN Creatinine Estimated Creat Clear Estim Creat Clear Calc Estimated GFR Est GFR (Non-Af Amer) Random Glucose Fasting Glucose Calcium Total Bilirubin AST ALT Alkaline Phosphatase Total Protein Albumin Vitamin B12 998 H Folate 15.9 Free T4 TSH 3rd Generation Urine Opiates Screen Ur Barbiturates Screen Valproic Acid Phencyclidine Screen Clozapine Norclozapine Ur Amphetamines Screen U Benzodiazepines Scrn Urine Cocaine Screen U Cannabinoids Screen Coronavirus (PCR) HIV 1&2 Antigen & Ab 05/17/20 05/18/20 05/23/20 07:52 07:16 08:00 WBC 7.8 RBC 4.47 Hgb 13.4 Hct 40.5 MCV 90.6 MCH 30.0 MCHC 33.1 RDW RDW Coeff of Jacob 13.0 Plt Count 278 MPV 10.8 Immature Gran % (Auto) 0.3 Neut % (Auto) 51.5 Lymph % (Auto) 33.5 [place] % (Auto) 8.8 Eos % (Auto) 5.5 H Baso % (Auto) 0.4 Neut # (Auto) Lymph # (Auto) [place] # (Auto) Eos # (Auto) Baso # (Auto) Abs Immat Gran (auto) 0.02 Absolute Neuts (auto) Absolute Lymphs (auto) 2.6 Absolute Monos (auto) 0.7 Absolute Eos (auto) 0.4 Absolute Basos (auto) 0.0 Absolute Nucleated RBC 0.000 Nucleated RBC % (auto) 0.0 Absolute Neutrophils 4.0 Sodium Potassium Chloride Carbon Dioxide Bicarbonate Anion Gap BUN Creatinine Estimated Creat Clear Estim Creat Clear Calc Estimated GFR Est GFR (Non-Af Amer) Random Glucose Fasting Glucose Calcium Total Bilirubin AST ALT Alkaline Phosphatase Total Protein Albumin Vitamin B12 Folate Free T4 TSH 3rd Generation Urine Opiates Screen Ur Barbiturates Screen Valproic Acid Phencyclidine Screen Clozapine Cancelled Norclozapine Cancelled Ur Amphetamines Screen U Benzodiazepines Scrn Urine Cocaine Screen U Cannabinoids Screen Coronavirus (PCR) HIV 1&2 Antigen & Ab NONREACTIVE 05/24/20 06/02/20 06/04/20 09:20 10:41 09:51 WBC 9.4 RBC Hgb Hct MCV MCH MCHC RDW RDW Coeff of Jacob Plt Count MPV Immature Gran % (Auto) Neut % (Auto) Lymph % (Auto) [place] % (Auto) Eos % (Auto) Baso % (Auto) Neut # (Auto) 7.6 Lymph # (Auto) [place] # (Auto) Eos # (Auto) Baso # (Auto) Abs Immat Gran (auto) Absolute Neuts (auto) Absolute Lymphs (auto) Absolute Monos (auto) Absolute Eos (auto) Absolute Basos (auto) Absolute Nucleated RBC Nucleated RBC % (auto) Absolute Neutrophils 5.3 Sodium Potassium Chloride Carbon Dioxide Bicarbonate Anion Gap BUN Creatinine Estimated Creat Clear Estim Creat Clear Calc Estimated GFR Est GFR (Non-Af Amer) Random Glucose Fasting Glucose Calcium Total Bilirubin AST ALT Alkaline Phosphatase Total Protein Albumin Vitamin B12 Folate Free T4 TSH 3rd Generation Urine Opiates Screen Ur Barbiturates Screen Valproic Acid Phencyclidine Screen Clozapine 419 Norclozapine 111 Ur Amphetamines Screen U Benzodiazepines Scrn Urine Cocaine Screen U Cannabinoids Screen Coronavirus (PCR) HIV 1&2 Antigen & Ab 06/09/20 06/14/20 06/16/20 09:39 06:57 13:13 WBC RBC Hgb Hct MCV MCH MCHC RDW RDW Coeff of Jacob Plt Count MPV Immature Gran % (Auto) Neut % (Auto) Lymph % (Auto) [place] % (Auto) Eos % (Auto) Baso % (Auto) Neut # (Auto) Lymph # (Auto) [place] # (Auto) Eos # (Auto) Baso # (Auto) Abs Immat Gran (auto) Absolute Neuts (auto) 6.8 Absolute Lymphs (auto) Absolute Monos (auto) Absolute Eos (auto) Absolute Basos (auto) Absolute Nucleated RBC Nucleated RBC % (auto) Absolute Neutrophils Sodium Potassium Chloride Carbon Dioxide Bicarbonate Anion Gap BUN Creatinine Estimated Creat Clear Estim Creat Clear Calc Estimated GFR Est GFR (Non-Af Amer) Random Glucose Fasting Glucose Calcium Total Bilirubin AST ALT Alkaline Phosphatase Total Protein Albumin Vitamin B12 Folate Free T4 TSH 3rd Generation Urine Opiates Screen Ur Barbiturates Screen Valproic Acid Phencyclidine Screen Clozapine 451 289 Norclozapine 115 110 Ur Amphetamines Screen U Benzodiazepines Scrn Urine Cocaine Screen U Cannabinoids Screen Coronavirus (PCR) HIV 1&2 Antigen & Ab 06/16/20 06/16/20 06/18/20 13:13 13:13 07:44 WBC 14.6 H 9.5 RBC 4.63 4.94 Hgb 13.9 14.9 Hct 41.8 45.9 MCV 90.3 92.9 MCH 30.0 30.2 MCHC 33.3 32.5 RDW 13.2 13.4 RDW Coeff of Jacob Plt Count 345 303 MPV 10.5 10.3 Immature Gran % (Auto) 0.4 0.5 H Neut % (Auto) 75.0 H 47.0 Lymph % (Auto) 13.8 L 37.2 [place] % (Auto) 6.4 9.4 Eos % (Auto) 3.9 5.3 H Baso % (Auto) 0.5 0.6 Neut # (Auto) Lymph # (Auto) 2.0 3.5 [place] # (Auto) 0.9 0.9 Eos # (Auto) 0.6 H 0.5 H Baso # (Auto) 0.1 0.1 Abs Immat Gran (auto) 0.06 H 0.05 H Absolute Neuts (auto) 10.9 H 4.5 Absolute Lymphs (auto) Absolute Monos (auto) Absolute Eos (auto) Absolute Basos (auto) Absolute Nucleated RBC 0.000 0.000 Nucleated RBC % (auto) 0.0 0.0 Absolute Neutrophils Sodium Potassium Chloride Carbon Dioxide Bicarbonate Anion Gap BUN Creatinine Estimated Creat Clear Estim Creat Clear Calc Estimated GFR Est GFR (Non-Af Amer) Random Glucose Fasting Glucose Calcium Total Bilirubin AST ALT Alkaline Phosphatase Total Protein Albumin Vitamin B12 Folate Free T4 TSH 3rd Generation Urine Opiates Screen Ur Barbiturates Screen Valproic Acid 72.7 Phencyclidine Screen Clozapine Norclozapine Ur Amphetamines Screen U Benzodiazepines Scrn Urine Cocaine Screen U Cannabinoids Screen Coronavirus (PCR) HIV 1&2 Antigen & Ab 06/18/20 06/19/20 06/23/20 07:44 16:16 09:57 WBC 9.9 RBC Hgb Hct MCV MCH MCHC RDW RDW Coeff of Jacob Plt Count MPV Immature Gran % (Auto) Neut % (Auto) Lymph % (Auto) [place] % (Auto) Eos % (Auto) Baso % (Auto) Neut # (Auto) Lymph # (Auto) [place] # (Auto) Eos # (Auto) Baso # (Auto) Abs Immat Gran (auto) Absolute Neuts (auto) 5.7 Absolute Lymphs (auto) Absolute Monos (auto) Absolute Eos (auto) Absolute Basos (auto) Absolute Nucleated RBC Nucleated RBC % (auto) Absolute Neutrophils Sodium 140 Potassium 4.5 Chloride 103 Carbon Dioxide 28 Bicarbonate Anion Gap 14 BUN 18 H Creatinine 0.80 Estimated Creat Clear Estim Creat Clear Calc 83.6 Estimated GFR > 60 Est GFR (Non-Af Amer) Random Glucose 99 Fasting Glucose Calcium 9.4 Total Bilirubin 0.2 AST 15 ALT 18 Alkaline Phosphatase 61 Total Protein 6.9 Albumin 4.1 Vitamin B12 Folate Free T4 TSH 3rd Generation Urine Opiates Screen Ur Barbiturates Screen Valproic Acid 75.0 Phencyclidine Screen Clozapine Norclozapine Ur Amphetamines Screen U Benzodiazepines Scrn Urine Cocaine Screen U Cannabinoids Screen Coronavirus (PCR) HIV 1&2 Antigen & Ab 06/30/20 13:54 WBC RBC Hgb Hct MCV MCH MCHC RDW RDW Coeff of Jacob Plt Count MPV Immature Gran % (Auto) Neut % (Auto) Lymph % (Auto) [place] % (Auto) Eos % (Auto) Baso % (Auto) Neut # (Auto) Lymph # (Auto) [place] # (Auto) Eos # (Auto) Baso # (Auto) Abs Immat Gran (auto) Absolute Neuts (auto) 6.4 Absolute Lymphs (auto) Absolute Monos (auto) Absolute Eos (auto) Absolute Basos (auto) Absolute Nucleated RBC Nucleated RBC % (auto) Absolute Neutrophils Sodium Potassium Chloride Carbon Dioxide Bicarbonate Anion Gap BUN Creatinine Estimated Creat Clear Estim Creat Clear Calc Estimated GFR Est GFR (Non-Af Amer) Random Glucose Fasting Glucose Calcium Total Bilirubin AST ALT Alkaline Phosphatase Total Protein Albumin Vitamin B12 Folate Free T4 TSH 3rd Generation Urine Opiates Screen Ur Barbiturates Screen Valproic Acid Phencyclidine Screen Clozapine Norclozapine Ur Amphetamines Screen U Benzodiazepines Scrn Urine Cocaine Screen U Cannabinoids Screen Coronavirus (PCR) HIV 1&2 Antigen & Ab Airway Mallampati Class: II TM Dist: >3cm Neck ROM: Full
--- NOTE | 2020-07-02 09:08 | HO.POSTANES ---
Post Anesthesia Evaluation Post Anesthesia Evaluation Vital Signs: Vital Signs Temp Pulse Resp BP Pulse Ox 07/02/20 08:59 105 H 18 146/89 H 98 07/02/20 08:55 98 18 134/88 100 07/02/20 08:50 99 18 124/88 99 07/02/20 08:45 97.4 F 90 22 H 130/89 99 07/02/20 06:39 97.0 F 78 16 120/88 96 07/02/20 05:52 97.5 F 96 20 115/66 95 07/02/20 05:25 97.5 F 96 20 115/66 95 07/01/20 22:12 88 137/86 Anesthesia: General Mental Status: Awake Pain Control: Satisfactory Nausea/Vomiting: None Hydration: Adequate Anesthesia-Related Issues: No Anes. Related Issues
[2020-07-02] MEDS: Levothyroxine Sodium 100 MCG TABLET PO (09:59)
[2020-07-02] MEDS: Divalproex Sodium ER 250 MG TAB.ER.24H PO ×3 (10:01→10:12)
[2020-07-02] MEDS: Propranolol HCL 10 MG TABLET 20 MG PO ×3 (10:03→22:10)
[2020-07-02] MEDS: diazePAM 2 MG TABLET PO ×4 (10:12→22:11)
[2020-07-02] MEDS: HaloperidoL 5 MG TABLET PO ×3 (10:13→22:11)
[2020-07-02] MEDS: Lactated Ringers 1,000 ML 100 ML IVCONT (10:22)
--- NOTE | 2020-07-02 14:48 | HO.ECTPROC ---
ECT Procedure Note Diagnosis/Treatment Diagnosis: Bipolar disorder Previous ECT Date: 06/29/20 Current Treatment Number: 6 Treatment: Series Interval Clinical Notes: improved mood ECT Settings Device: THYMATRON DGx Electrode Placement: Rt temporal/ Lt frontal Program/Pulse Width: 0.25 Energy Percent: 100 Seizure Duration By EEG (in seconds): 33 Medications Administration General Anesthetic: Etomidate (14) Muscle Relaxant: Succinylcholine (60) Ancillary Medications Analgesics: Torodol - Pre ECT (4) Anti-emetics: Zofran - Pre ECT (4) Miscillaneous Medications: Midazolam (2 mg ) Airway Management Airway Management: Bag Mask Ventilation Treatment Recommendations Electrode Placement: Bifrontal Program/Pulse Width: 0.50 Energy Percent: 100 Notes: patient did much better today avoided use of flumazenil lower dose of succinylcholine to 60 mg and use Versed post this work much better patient suffered no adverse effects and had no complaints Pt Tolerated Procedure w/o Issue: No
--- NOTE | 2020-07-02 14:51 | P.PNPSI_ITS ---
Subjective Subjective Date of Service: 07/02/20 Reason For Visit: severe mood lability Subjective Notes: Conditional Voluntary Interim History: see ECT note patient somewhat improved brighter affect remains obsessional Medication Compliance: Yes Side effects from medications: Yes Attending Groups: Intermittent Mental Status Exam Mental Status Exam Narrative: Alert, eating with her roommate, and was earlier seen appropriately interacting with peers in kitchen Patient Appearance: Unkempt Patient Orientation: Person, Place, Time and Situation Level of Consciousness: Awake, Appropriate and Drowsy Patient Behavior: Cooperative and Anxious Mood Description: Calm and Fearful (of losing control again) Ability to Follow Directions: Fair Speech Pattern: Clear and Perseverating Thought Process: Goal Oriented Thought Content: positive for [place] Depressive Symptoms: Insomnia and Difficulty Concentrating Judgement: Fair Judgement and Insight: improving improving impulse control Diagnostics Vital Signs (24Hr): Vital Signs - 24 hr 07/01/20 18:00 07/01/20 22:12 07/02/20 05:25 Temperature 97.8 F 97.5 F Pulse Rate 88 88 96 Respiratory Rate 16 20 Blood Pressure 137/86 137/86 115/66 Pulse Oximetry 95 07/02/20 05:52 07/02/20 06:39 07/02/20 08:45 Temperature 97.5 F 97.0 F 97.4 F Pulse Rate 96 78 90 Respiratory Rate 20 16 22 H Blood Pressure 115/66 120/88 130/89 Pulse Oximetry 95 96 99 07/02/20 08:50 07/02/20 08:55 07/02/20 08:59 Temperature Pulse Rate 99 98 105 H Respiratory Rate 18 18 18 Blood Pressure 124/88 134/88 146/89 H Pulse Oximetry 99 100 98 07/02/20 09:15 07/02/20 13:33 Temperature 97.4 F Pulse Rate 87 88 Respiratory Rate 16 Blood Pressure 129/93 H Pulse Oximetry 97 Body Mass Index 34.7 Labs Results: 06/23/20 09:57 06/19/20 16:16 Medications Medications Current Medications Generic Name Dose Route Start Last Admin Trade Name Freq PRN Reason Stop Dose Admin Acetaminophen 650 mg 05/31/20 00:01 07/01/20 18:17 Acetaminophen 325 Mg Tablet PO 650 mg Q6H PRN Administration Pain, Mild (Pain Scale 1-3) Al Hydroxide/Mg Hydroxide 30 ml 05/31/20 00:06/29/20 04:02 Magnesium Hydrox/Alum Hydrox 30 Ml Oral.Susp PO 30 ml Q6H PRN Administration Heartburn/nausea Benztropine Mesylate 1 mg 06/30/20 13:09 Benztropine Mesylate 1 Mg Tablet PO TID PRN Extrapyramidal Effects Clozapine 200 mg 06/07/20 21:00 07/01/20 22:11 Clozapine 100 Mg Tablet PO 200 mg BEDTIME [place] Administration Diazepam 2 mg 06/30/20 15:00 07/02/20 14:41 Diazepam 2 Mg Tablet PO 2 mg TID [place] Administration Divalproex Sodium 250 mg 06/27/20 09:00 07/02/20 10:12 Divalproex Sodium Er 250 Mg Tab.Er.24h PO 250 mg DAILY [place] Administration Haloperidol 5 mg 06/30/20 17:11 07/01/20 09:07 Haloperidol 5 Mg Tablet PO 5 mg Q4H PRN Administration psychotic agitation Haloperidol 5 mg 07/01/20 15:00 07/02/20 10:13 Haloperidol 5 Mg Tablet PO 5 mg TID [place] Administration Hydroxyzine HCl 25 mg 05/31/20 21:00 07/01/20 01:28 EST Hydroxyzine Hcl 25 Mg Tablet PO 25 mg BEDTIME MRX1 PRN Administration NIGHT TIME ANXIETY Hydroxyzine HCl 50 mg 06/30/20 17:12 06/30/20 17:41 Hydroxyzine Hcl 50 Mg Tablet PO 50 mg Q6H PRN Administration agitation Levothyroxine Sodium 100 mcg 05/31/20 06:30 07/02/20 09:59 Levothyroxine Sodium 100 Mcg Tablet PO 100 mcg DAILY@0630 [place] Administration Magnesium Hydroxide 30 ml 05/31/20 00:01 Milk Of Magnesia 30 Ml Oral.Susp PO Q24H PRN Constipation Nicotine Polacrilex 2 mg 05/31/20 00:01 Nicotine Polacrilex 2 Mg Gum BUCCAL Q2H PRN Nicotine Cravings Oxybutynin Chloride 10 mg 05/31/20 09:00 07/02/20 10:17 Oxybutynin Chloride Er 5 Mg Tab.Er.24 PO 10 mg DAILY [place] Administration Propranolol HCl 20 mg 06/02/20 21:00 07/02/20 13:33 Propranolol Hcl 10 Mg Tablet PO 20 mg TID@0830,1330,2100 [place] Administration Protocol Quetiapine Fumarate 50 mg 05/31/20 00:01 07/01/20 02:36 Quetiapine Fumarate 50 Mg Tablet PO 50 mg Q4H PRN Administration anxiety/restlessness Trazodone HCl 50 mg 06/01/20 11:41 06/30/20 23:54 Trazodone Hcl 50 Mg Tablet PO 50 mg BEDTIME PRN Administration Insomnia Allergies Allergies Allergy/AdvReac Type Severity Reaction Status Date / Time No Known Allergies Allergy Unverified 05/17/20 19:50 [No Known Allergies*] Assessment & Plan Assessment & Plan (1) Bipolar 1 disorder, mixed: Status: Acute Code(s): F31.60 - Bipolar disorder, current episode mixed, unspecified Assessment and Plan: continue clozapine Haldol ECT monitor for confusion side effects Greater than 50% of the session was spent on counseling and/or coordination of care Patient educated on: medication risk/benefits, ECT and therapeutic strategies Informed Consent: further education needed Reason for contiued inpatient stay Substantial Risk for: harm to self and rapid decompensation
[2020-07-02] MEDS: cloZAPine 100 MG TABLET 200 MG PO (22:11)
[2020-07-03 05:55] VITALS: BP 124/74; PULSE 74; RESP 20; TEMP 36.8
[2020-07-03] MEDS: Levothyroxine Sodium 100 MCG TABLET PO (06:24)
[2020-07-03 08:54] VITALS: BP 124/74; PULSE 74
[2020-07-03] MEDS: diazePAM 2 MG TABLET PO ×3 (08:54→22:08)
[2020-07-03] MEDS: Divalproex Sodium ER 250 MG TAB.ER.24H PO (08:54)
[2020-07-03] MEDS: Propranolol HCL 10 MG TABLET 20 MG PO ×3 (08:54→22:08)
[2020-07-03] MEDS: HaloperidoL 5 MG TABLET PO ×2 (08:55→22:14)
[2020-07-03 14:53] VITALS: BP 130/88; PULSE 98
--- NOTE | 2020-07-03 20:31 | HO.PSYCHPN ---
Subjective Subjective Reason For Visit: severe mood lability Interim History: see ECT note patient somewhat improved brighter affect remains obsessional feels Haldol may be helping Mental Status Exam Mental Status Exam Narrative: Alert, eating with her roommate, and was earlier seen appropriately interacting with peers in kitchen Patient Appearance: Unkempt Patient Orientation: Person, Place, Time and Situation Level of Consciousness: Awake, Appropriate and Drowsy Patient Behavior: Cooperative and Anxious Mood Description: Calm and Fearful (of losing control again) Affect Description: Labile Patient Cognition Impaired: No Ability to Follow Directions: Fair Speech Pattern: Clear and Perseverating Memory Description: Episodic Impaired and Working Impaired Diagnostics Vital Signs (24Hr): Vital Signs - 24 hr 07/02/20 22:10 07/03/20 05:55 07/03/20 08:54 Temperature 98.2 F Pulse Rate 73 74 74 Respiratory Rate 20 Blood Pressure 111/74 124/74 124/74 07/03/20 14:53 Temperature Pulse Rate 98 Respiratory Rate Blood Pressure 130/88 Body Mass Index 34.7 Labs Results: 06/23/20 09:57 06/19/20 16:16 Medications Medications Current Medications Generic Name Dose Route Start Last Admin Trade Name Freq PRN Reason Stop Dose Admin Acetaminophen 650 mg 05/31/20 00:01 07/01/20 18:17 Acetaminophen 325 Mg Tablet PO 650 mg Q6H PRN Administration Pain, Mild (Pain Scale 1-3) Al Hydroxide/Mg Hydroxide 30 ml 05/31/20 00:01 06/29/20 04:02 Magnesium Hydrox/Alum Hydrox 30 Ml Oral.Susp PO 30 ml Q6H PRN Administration Heartburn/nausea Benztropine Mesylate 1 mg 06/30/20 13:09 Benztropine Mesylate 1 Mg Tablet PO TID PRN Extrapyramidal Effects Clozapine 200 mg 06/07/20 21:00 07/02/20 22:11 Clozapine 100 Mg Tablet PO 200 mg BEDTIME [place] Administration Diazepam 2 mg 06/30/20 15:00 07/03/20 14:52 Diazepam 2 Mg Tablet PO 2 mg TID [place] Administration Divalproex Sodium 250 mg 06/27/20 09:00 07/03/20 08:54 Divalproex Sodium Er 250 Mg Tab.Er.24h PO 250 mg DAILY [place] Administration Haloperidol 5 mg 06/30/20 17:11 07/01/20 09:07 Haloperidol 5 Mg Tablet PO 5 mg Q4H PRN Administration psychotic agitation Haloperidol 5 mg 07/03/20 08:30 07/03/20 08:55 Haloperidol 5 Mg Tablet PO 5 mg BID@0830,2030 [place] Administration Hydroxyzine HCl 25 mg 05/31/20 21:00 07/01/20 01:28 EST Hydroxyzine Hcl 25 Mg Tablet PO 25 mg BEDTIME MRX1 PRN Administration NIGHT TIME ANXIETY Hydroxyzine HCl 50 mg 06/30/20 17:12 06/30/20 17:41 Hydroxyzine Hcl 50 Mg Tablet PO 50 mg Q6H PRN Administration agitation Levothyroxine Sodium 100 mcg 05/31/20 06:30 07/03/20 06:24 Levothyroxine Sodium 100 Mcg Tablet PO 100 mcg DAILY@0630 [place] Administration Magnesium Hydroxide 30 ml 05/31/20 00:01 Milk Of Magnesia 30 Ml Oral.Susp PO Q24H PRN Constipation Nicotine Polacrilex 2 mg 05/31/20 00:01 Nicotine Polacrilex 2 Mg Gum BUCCAL Q2H PRN Nicotine Cravings Oxybutynin Chloride 10 mg 05/31/20 09:00 07/03/20 08:54 Oxybutynin Chloride Er 5 Mg Tab.Er.24 PO 10 mg DAILY [place] Administration Propranolol HCl 20 mg 06/02/20 21:00 07/03/20 14:53 Propranolol Hcl 10 Mg Tablet PO 20 mg TID@0830,1330,2100 [place] Administration Protocol Quetiapine Fumarate 50 mg 05/31/20 00:01 07/01/20 02:36 Quetiapine Fumarate 50 Mg Tablet PO 50 mg Q4H PRN Administration anxiety/restlessness Trazodone HCl 50 mg 06/01/20 11:41 06/30/20 23:54 Trazodone Hcl 50 Mg Tablet PO 50 mg BEDTIME PRN Administration Insomnia Allergies Allergies Allergy/AdvReac Type Severity Reaction Status Date / Time No Known Allergies Allergy Unverified 05/17/20 19:50 [No Known Allergies*] Assessment & Plan Assessment & Plan (1) Bipolar 1 disorder, mixed: Status: Acute Code(s): F31.60 - Bipolar disorder, current episode mixed, unspecified Assessment and Plan: discharge planning continue clozapine Haldol ECT monitor for confusion side effects Greater than 50% of the session was spent on counseling and/or coordination of care Reason for contiued inpatient stay Substantial Risk for: inability to function and rapid decompensation
[2020-07-03 22:08] VITALS: BP 138/85; PULSE 94
[2020-07-03] MEDS: cloZAPine 100 MG TABLET 200 MG PO (22:08)
[2020-07-04] VITALS (14 sets, daily range): BP systolic 118–176; BP diastolic 61–116; PULSE 86–108; RESP 16–22; TEMP 36–36.6; O2SAT 96–100; BMI 34.7
--- NOTE | 2020-07-04 06:28 | HO.ECTPROC ---
ECT Procedure Note Diagnosis/Treatment Diagnosis: Bipolar disorder Previous ECT Date: 07/02/20 Current Treatment Number: 7 Treatment: Series Interval Clinical Notes: Improving. Was anxious re emergence ECT Settings Device: THYMATRON DGx Electrode Placement: Rt temporal/ Lt frontal Program/Pulse Width: 0.50 Energy Percent: 100 Seizure Duration By EEG (in seconds): 46 By Motor Observation (in seconds): 38 Medications Administration General Anesthetic: Etomidate (14) Muscle Relaxant: Succinylcholine (100) Ancillary Medications Analgesics: Torodol - Pre ECT (15) Anti-emetics: Zofran - Pre ECT (4) Cardiovascular Medications: Labetolol (10 post ect) Miscillaneous Medications: Propofol (30) and Midazolam (2mg) Airway Management Airway Management: Bag Mask Ventilation Treatment Recommendations No Changes Recommended: No change Electrode Placement: Rt temporal/ Lt frontal Program/Pulse Width: 0.50 Energy Percent: 100 Pt Tolerated Procedure w/o Issue: Yes
--- NOTE | 2020-07-04 06:28 | MHC.SHP ---
Pre-Procedural Eval Section A The patient is an INPATIENT: Yes Changes since office visit: No Cold of Flu in the past 2 weeks, No New Medical Problems, No Changes in Medication and No Patient answered all questions The History & Physical has been completed within 30 days and I have reviewed it.: Yes Section B Chief Complaint: severe mood lability Allergies: Allergies Allergy/AdvReac Type Severity Reaction Status Date / Time No Known Allergies Allergy Unverified 05/17/20 19:50 [No Known Allergies*] Plan Patient has been examined and remains a candidate for the planned procedure
--- NOTE | 2020-07-04 07:55 | HO.ANESPROP2 ---
[facility] Past Medical History Medical History Bipolar 1 disorder, mixed Hypothyroidism OCD (obsessive compulsive disorder) Social History Social History Smoking Status: Former smoker Packs Per Day: 1 Cigarettes Per Day: 20.0 Years Smoked: 15 Smoked in Last 30 Days: No Use of substances other than those prescribed or required for medical reasons: No Substance Use Type Other:: pt states history of marijuana and cocaine use years ago Currently Displaying Signs/Symptoms of Drug Intoxication Withdrawal: No Have you been hit, kicked, punched, or otherwise hurt by someone within the past year? If so, by whom?: No Advance Directives: No Advance Directives Information Provided: No Advance Directives on File: No Do you have thoughts of harming others: None Do you have a plan to hurt others: No Plan Recently lost weight without trying: Unsure Meds Allergies Allergy/AdvReac Type Severity Reaction Status Date / Time No Known Allergies Allergy Unverified 05/17/20 19:50 [No Known Allergies*] Home Medications Medication Instructions Recorded Confirmed Type diazepam 10 mg PO BID PRN 05/30/20 05/30/20 History divalproex 500 mg PO BID 05/30/20 05/30/20 History levothyroxine 100 mcg PO DAILY 05/30/20 05/30/20 History lurasidone 40 mg PO DAILY 05/30/20 05/30/20 History oxybutynin chloride 10 mg PO DAILY 05/30/20 05/30/20 History quetiapine 200 mg PO BEDTIME 05/30/20 05/30/20 History Exam Exam Date and Time: July 04, 2020 6725 Height,Weight and Vital Signs: Height 5 ft 1 in Weight 83.46 kg Last Vital Signs Temp 96.8 F 07/04/20 07:13 Pulse 95 07/04/20 07:13 Resp 16 07/04/20 07:13 BP 120/93 H 07/04/20 07:13 Pulse Ox 97 07/04/20 07:13 Pertinent Lab Results Pertinent Lab Results: Laboratory Tests 05/08/20 05/09/20 05/11/20 20:32 16:31 08:02 WBC RBC Hgb Hct MCV MCH MCHC RDW RDW Coeff of Jacob Plt Count MPV Immature Gran % (Auto) Neut % (Auto) Lymph % (Auto) [place] % (Auto) Eos % (Auto) Baso % (Auto) Neut # (Auto) Lymph # (Auto) [place] # (Auto) Eos # (Auto) Baso # (Auto) Abs Immat Gran (auto) Absolute Neuts (auto) Absolute Lymphs (auto) Absolute Monos (auto) Absolute Eos (auto) Absolute Basos (auto) Absolute Nucleated RBC Nucleated RBC % (auto) Absolute Neutrophils Sodium 140 Potassium 4.4 Chloride 106 Carbon Dioxide Bicarbonate 25 Anion Gap 13 BUN 14 Creatinine 0.83 Estimated Creat Clear 91.2 Estim Creat Clear Calc Estimated GFR Est GFR (Non-Af Amer) > 60 Random Glucose Fasting Glucose 91 Calcium 8.8 D Total Bilirubin 0.6 AST 11 ALT 12 Alkaline Phosphatase 54 D Total Protein 6.2 L Albumin 3.9 Vitamin B12 Folate Free T4 1.16 TSH 3rd Generation 1.08 Urine Opiates Screen NOT DETECTED Ur Barbiturates Screen NOT DETECTED Valproic Acid 50.6 Phencyclidine Screen NOT DETECTED Clozapine Norclozapine Ur Amphetamines Screen NOT DETECTED U Benzodiazepines Scrn POSITIVE H Urine Cocaine Screen NOT DETECTED U Cannabinoids Screen NOT DETECTED Coronavirus (PCR) NEGATIVE HIV 1&2 Antigen & Ab 05/11/20 05/11/20 05/16/20 08:02 08:02 12:00 WBC 7.4 Cancelled RBC 4.49 Cancelled Hgb 13.3 Cancelled Hct 40.6 Cancelled MCV 90.4 Cancelled MCH 29.6 Cancelled MCHC 32.8 Cancelled RDW RDW Coeff of Jacob 13.2 Cancelled Plt Count 288 Cancelled MPV 11.0 Cancelled Immature Gran % (Auto) 0.3 Cancelled Neut % (Auto) 51.9 Cancelled Lymph % (Auto) 35.4 Cancelled [place] % (Auto) 11.6 H Cancelled Eos % (Auto) 0.1 Cancelled Baso % (Auto) 0.7 Cancelled Neut # (Auto) Lymph # (Auto) [place] # (Auto) Eos # (Auto) Baso # (Auto) Abs Immat Gran (auto) 0.02 Cancelled Absolute Neuts (auto) Absolute Lymphs (auto) 2.6 Cancelled Absolute Monos (auto) 0.9 Cancelled Absolute Eos (auto) 0.0 Cancelled Absolute Basos (auto) 0.1 Cancelled Absolute Nucleated RBC 0.000 Cancelled Nucleated RBC % (auto) 0.0 Cancelled Absolute Neutrophils 3.9 Sodium Potassium Chloride Carbon Dioxide Bicarbonate Anion Gap BUN Creatinine Estimated Creat Clear Estim Creat Clear Calc Estimated GFR Est GFR (Non-Af Amer) Random Glucose Fasting Glucose Calcium Total Bilirubin AST ALT Alkaline Phosphatase Total Protein Albumin Vitamin B12 998 H Folate 15.9 Free T4 TSH 3rd Generation Urine Opiates Screen Ur Barbiturates Screen Valproic Acid Phencyclidine Screen Clozapine Norclozapine Ur Amphetamines Screen U Benzodiazepines Scrn Urine Cocaine Screen U Cannabinoids Screen Coronavirus (PCR) HIV 1&2 Antigen & Ab 05/17/20 05/18/20 05/23/20 07:52 07:16 08:00 WBC 7.8 RBC 4.47 Hgb 13.4 Hct 40.5 MCV 90.6 MCH 30.0 MCHC 33.1 RDW RDW Coeff of Jacob 13.0 Plt Count 278 MPV 10.8 Immature Gran % (Auto) 0.3 Neut % (Auto) 51.5 Lymph % (Auto) 33.5 [place] % (Auto) 8.8 Eos % (Auto) 5.5 H Baso % (Auto) 0.4 Neut # (Auto) Lymph # (Auto) [place] # (Auto) Eos # (Auto) Baso # (Auto) Abs Immat Gran (auto) 0.02 Absolute Neuts (auto) Absolute Lymphs (auto) 2.6 Absolute Monos (auto) 0.7 Absolute Eos (auto) 0.4 Absolute Basos (auto) 0.0 Absolute Nucleated RBC 0.000 Nucleated RBC % (auto) 0.0 Absolute Neutrophils 4.0 Sodium Potassium Chloride Carbon Dioxide Bicarbonate Anion Gap BUN Creatinine Estimated Creat Clear Estim Creat Clear Calc Estimated GFR Est GFR (Non-Af Amer) Random Glucose Fasting Glucose Calcium Total Bilirubin AST ALT Alkaline Phosphatase Total Protein Albumin Vitamin B12 Folate Free T4 TSH 3rd Generation Urine Opiates Screen Ur Barbiturates Screen Valproic Acid Phencyclidine Screen Clozapine Cancelled Norclozapine Cancelled Ur Amphetamines Screen U Benzodiazepines Scrn Urine Cocaine Screen U Cannabinoids Screen Coronavirus (PCR) HIV 1&2 Antigen & Ab NONREACTIVE 05/24/20 06/02/20 06/04/20 09:20 10:41 09:51 WBC 9.4 RBC Hgb Hct MCV MCH MCHC RDW RDW Coeff of Jacob Plt Count MPV Immature Gran % (Auto) Neut % (Auto) Lymph % (Auto) [place] % (Auto) Eos % (Auto) Baso % (Auto) Neut # (Auto) 7.6 Lymph # (Auto) [place] # (Auto) Eos # (Auto) Baso # (Auto) Abs Immat Gran (auto) Absolute Neuts (auto) Absolute Lymphs (auto) Absolute Monos (auto) Absolute Eos (auto) Absolute Basos (auto) Absolute Nucleated RBC Nucleated RBC % (auto) Absolute Neutrophils 5.3 Sodium Potassium Chloride Carbon Dioxide Bicarbonate Anion Gap BUN Creatinine Estimated Creat Clear Estim Creat Clear Calc Estimated GFR Est GFR (Non-Af Amer) Random Glucose Fasting Glucose Calcium Total Bilirubin AST ALT Alkaline Phosphatase Total Protein Albumin Vitamin B12 Folate Free T4 TSH 3rd Generation Urine Opiates Screen Ur Barbiturates Screen Valproic Acid Phencyclidine Screen Clozapine 419 Norclozapine 111 Ur Amphetamines Screen U Benzodiazepines Scrn Urine Cocaine Screen U Cannabinoids Screen Coronavirus (PCR) HIV 1&2 Antigen & Ab 06/09/20 06/14/20 06/16/20 09:39 06:57 13:13 WBC RBC Hgb Hct MCV MCH MCHC RDW RDW Coeff of Jacob Plt Count MPV Immature Gran % (Auto) Neut % (Auto) Lymph % (Auto) [place] % (Auto) Eos % (Auto) Baso % (Auto) Neut # (Auto) Lymph # (Auto) [place] # (Auto) Eos # (Auto) Baso # (Auto) Abs Immat Gran (auto) Absolute Neuts (auto) 6.8 Absolute Lymphs (auto) Absolute Monos (auto) Absolute Eos (auto) Absolute Basos (auto) Absolute Nucleated RBC Nucleated RBC % (auto) Absolute Neutrophils Sodium Potassium Chloride Carbon Dioxide Bicarbonate Anion Gap BUN Creatinine Estimated Creat Clear Estim Creat Clear Calc Estimated GFR Est GFR (Non-Af Amer) Random Glucose Fasting Glucose Calcium Total Bilirubin AST ALT Alkaline Phosphatase Total Protein Albumin Vitamin B12 Folate Free T4 TSH 3rd Generation Urine Opiates Screen Ur Barbiturates Screen Valproic Acid Phencyclidine Screen Clozapine 451 289 Norclozapine 115 110 Ur Amphetamines Screen U Benzodiazepines Scrn Urine Cocaine Screen U Cannabinoids Screen Coronavirus (PCR) HIV 1&2 Antigen & Ab 06/16/20 06/16/20 06/18/20 13:13 13:13 07:44 WBC 14.6 H 9.5 RBC 4.63 4.94 Hgb 13.9 14.9 Hct 41.8 45.9 MCV 90.3 92.9 MCH 30.0 30.2 MCHC 33.3 32.5 RDW 13.2 13.4 RDW Coeff of Jacob Plt Count 345 303 MPV 10.5 10.3 Immature Gran % (Auto) 0.4 0.5 H Neut % (Auto) 75.0 H 47.0 Lymph % (Auto) 13.8 L 37.2 [place] % (Auto) 6.4 9.4 Eos % (Auto) 3.9 5.3 H Baso % (Auto) 0.5 0.6 Neut # (Auto) Lymph # (Auto) 2.0 3.5 [place] # (Auto) 0.9 0.9 Eos # (Auto) 0.6 H 0.5 H Baso # (Auto) 0.1 0.1 Abs Immat Gran (auto) 0.06 H 0.05 H Absolute Neuts (auto) 10.9 H 4.5 Absolute Lymphs (auto) Absolute Monos (auto) Absolute Eos (auto) Absolute Basos (auto) Absolute Nucleated RBC 0.000 0.000 Nucleated RBC % (auto) 0.0 0.0 Absolute Neutrophils Sodium Potassium Chloride Carbon Dioxide Bicarbonate Anion Gap BUN Creatinine Estimated Creat Clear Estim Creat Clear Calc Estimated GFR Est GFR (Non-Af Amer) Random Glucose Fasting Glucose Calcium Total Bilirubin AST ALT Alkaline Phosphatase Total Protein Albumin Vitamin B12 Folate Free T4 TSH 3rd Generation Urine Opiates Screen Ur Barbiturates Screen Valproic Acid 72.7 Phencyclidine Screen Clozapine Norclozapine Ur Amphetamines Screen U Benzodiazepines Scrn Urine Cocaine Screen U Cannabinoids Screen Coronavirus (PCR) HIV 1&2 Antigen & Ab 06/18/20 06/19/20 06/23/20 07:44 16:16 09:57 WBC 9.9 RBC Hgb Hct MCV MCH MCHC RDW RDW Coeff of Jacob Plt Count MPV Immature Gran % (Auto) Neut % (Auto) Lymph % (Auto) [place] % (Auto) Eos % (Auto) Baso % (Auto) Neut # (Auto) Lymph # (Auto) [place] # (Auto) Eos # (Auto) Baso # (Auto) Abs Immat Gran (auto) Absolute Neuts (auto) 5.7 Absolute Lymphs (auto) Absolute Monos (auto) Absolute Eos (auto) Absolute Basos (auto) Absolute Nucleated RBC Nucleated RBC % (auto) Absolute Neutrophils Sodium 140 Potassium 4.5 Chloride 103 Carbon Dioxide 28 Bicarbonate Anion Gap 14 BUN 18 H Creatinine 0.80 Estimated Creat Clear Estim Creat Clear Calc 83.6 Estimated GFR > 60 Est GFR (Non-Af Amer) Random Glucose 99 Fasting Glucose Calcium 9.4 Total Bilirubin 0.2 AST 15 ALT 18 Alkaline Phosphatase 61 Total Protein 6.9 Albumin 4.1 Vitamin B12 Folate Free T4 TSH 3rd Generation Urine Opiates Screen Ur Barbiturates Screen Valproic Acid 75.0 Phencyclidine Screen Clozapine Norclozapine Ur Amphetamines Screen U Benzodiazepines Scrn Urine Cocaine Screen U Cannabinoids Screen Coronavirus (PCR) HIV 1&2 Antigen & Ab 06/30/20 13:54 WBC RBC Hgb Hct MCV MCH MCHC RDW RDW Coeff of Jacob Plt Count MPV Immature Gran % (Auto) Neut % (Auto) Lymph % (Auto) [place] % (Auto) Eos % (Auto) Baso % (Auto) Neut # (Auto) Lymph # (Auto) [place] # (Auto) Eos # (Auto) Baso # (Auto) Abs Immat Gran (auto) Absolute Neuts (auto) 6.4 Absolute Lymphs (auto) Absolute Monos (auto) Absolute Eos (auto) Absolute Basos (auto) Absolute Nucleated RBC Nucleated RBC % (auto) Absolute Neutrophils Sodium Potassium Chloride Carbon Dioxide Bicarbonate Anion Gap BUN Creatinine Estimated Creat Clear Estim Creat Clear Calc Estimated GFR Est GFR (Non-Af Amer) Random Glucose Fasting Glucose Calcium Total Bilirubin AST ALT Alkaline Phosphatase Total Protein Albumin Vitamin B12 Folate Free T4 TSH 3rd Generation Urine Opiates Screen Ur Barbiturates Screen Valproic Acid Phencyclidine Screen Clozapine Norclozapine Ur Amphetamines Screen U Benzodiazepines Scrn Urine Cocaine Screen U Cannabinoids Screen Coronavirus (PCR) HIV 1&2 Antigen & Ab Airway Mallampati Class: III TM Dist: >3cm Neck ROM: Full Heart: RRR Assessment and Plan Assessment Anesthesia Assessment: Anesthesia Plan Discussed Final Anesthetic Review NPO: Yes ASA Class: II Final Preanesthetic Review: Consent Obtained/Reviewed Anesthetic Plan Anesthetic Plan: GA Disposition: Standard PACU
[2020-07-04] MEDS: Labetalol HCL 100 MG/20 ML VIAL 10 MG IVPUSH (08:47)
--- NOTE | 2020-07-04 09:02 | HO.POSTANES ---
Post Anesthesia Evaluation Post Anesthesia Evaluation Vital Signs: Vital Signs Temp Pulse Resp BP Pulse Ox 07/04/20 08:49 88 18 154/90 H 96 07/04/20 08:44 90 19 148/95 H 96 07/04/20 08:39 98 21 H 162/113 H 98 07/04/20 08:34 102 H 20 161/116 H 99 07/04/20 08:29 97.8 F 108 H 22 H 176/108 H 100 07/04/20 07:13 96.8 F 95 16 120/93 H 97 07/04/20 05:50 97.9 F 86 20 120/61 96 07/04/20 05:25 97.9 F 86 20 120/61 96 07/03/20 22:08 94 138/85 Anesthesia: General Mental Status: Awake Pain Control: Satisfactory Nausea/Vomiting: None Hydration: Adequate Anesthesia-Related Issues: No Anes. Related Issues
[2020-07-04] MEDS: Levothyroxine Sodium 100 MCG TABLET PO (09:52)
[2020-07-04] MEDS: Propranolol HCL 10 MG TABLET 20 MG PO ×3 (09:53→22:27)
[2020-07-04] MEDS: diazePAM 2 MG TABLET PO ×3 (09:54→22:26)
[2020-07-04] MEDS: Divalproex Sodium ER 250 MG TAB.ER.24H PO (09:57)
[2020-07-04] MEDS: Acetaminophen 325 MG TABLET 650 MG PO ×2 (09:58→15:52)
[2020-07-04] MEDS: HaloperidoL 5 MG TABLET PO (10:33)
[2020-07-04] MEDS: cloZAPine 100 MG TABLET 200 MG PO (22:26)
--- NOTE | 2020-07-04 23:54 | HO.PSYCHPN ---
Subjective Subjective Reason For Visit: severe mood lability Interim History: with patient anxious worried about discharge some degree of tremor Mental Status Exam Mental Status Exam Narrative: Alert, eating with her roommate, and was earlier seen appropriately interacting with peers in kitchen Patient Appearance: Unkempt Patient Orientation: Person, Place, Time and Situation Level of Consciousness: Awake, Appropriate and Drowsy Patient Behavior: Cooperative and Anxious Mood Description: Calm and Fearful (of losing control again) Affect Description: Labile Patient Cognition Impaired: No Ability to Follow Directions: Fair Speech Pattern: Clear and Perseverating Memory Description: Episodic Impaired and Working Impaired Diagnostics Vital Signs (24Hr): Vital Signs - 24 hr 07/04/20 05:25 07/04/20 05:50 07/04/20 07:13 Temperature 97.9 F 97.9 F 96.8 F Pulse Rate 86 86 95 Respiratory Rate 20 20 16 Blood Pressure 120/61 120/61 120/93 H Pulse Oximetry 96 96 97 07/04/20 08:29 07/04/20 08:34 07/04/20 08:39 Temperature 97.8 F Pulse Rate 108 H 102 H 98 Respiratory Rate 22 H 20 21 H Blood Pressure 176/108 H 161/116 H 162/113 H Pulse Oximetry 100 99 98 07/04/20 08:44 07/04/20 08:49 07/04/20 09:04 Temperature 97.4 F Pulse Rate 90 88 87 Respiratory Rate 19 18 18 Blood Pressure 148/95 H 154/90 H 144/94 H Pulse Oximetry 96 96 96 07/04/20 09:53 07/04/20 11:41 07/04/20 14:57 Temperature 97.8 F Pulse Rate 92 92 92 Respiratory Rate 16 Blood Pressure 160/101 H 134/89 134/78 Pulse Oximetry 98 07/04/20 16:29 07/04/20 22:27 Temperature 97.2 F Pulse Rate 95 105 H Respiratory Rate Blood Pressure 118/93 H 128/88 Pulse Oximetry Body Mass Index 34.7 Labs Results: 06/23/20 09:57 06/19/20 16:16 Medications Medications Current Medications Generic Name Dose Route Start Last Admin Trade Name Freq PRN Reason Stop Dose Admin Acetaminophen 650 mg 05/31/20 00:01 07/04/20 15:52 Acetaminophen 325 Mg Tablet PO 650 mg Q6H PRN Administration Pain, Mild (Pain Scale 1-3) Al Hydroxide/Mg Hydroxide 30 ml 05/31/20 00:01 06/29/20 04:02 Magnesium Hydrox/Alum Hydrox 30 Ml Oral.Susp PO 30 ml Q6H PRN Administration Heartburn/nausea Benztropine Mesylate 1 mg 06/30/20 13:09 Benztropine Mesylate 1 Mg Tablet PO TID PRN Extrapyramidal Effects Clozapine 200 mg 06/07/20 21:00 07/04/20 22:26 Clozapine 100 Mg Tablet PO 200 mg BEDTIME [place] Administration Diazepam 2 mg 06/30/20 15:00 07/04/20 22:26 Diazepam 2 Mg Tablet PO 2 mg TID [place] Administration Divalproex Sodium 250 mg 06/27/20 09:00 07/04/20 09:57 Divalproex Sodium Er 250 Mg Tab.Er.24h PO 250 mg DAILY [place] Administration Haloperidol 5 mg 06/30/20 17:11 07/01/20 09:07 Haloperidol 5 Mg Tablet PO 5 mg Q4H PRN Administration psychotic agitation Haloperidol 5 mg 07/03/20 08:30 07/04/20 10:33 Haloperidol 5 Mg Tablet PO 5 mg BID@0830,2030 [place] Administration Hydroxyzine HCl 25 mg 05/31/20 21:00 07/01/20 01:28 EST Hydroxyzine Hcl 25 Mg Tablet PO 25 mg BEDTIME MRX1 PRN Administration NIGHT TIME ANXIETY Hydroxyzine HCl 50 mg 06/30/20 17:12 06/30/20 17:41 Hydroxyzine Hcl 50 Mg Tablet PO 50 mg Q6H PRN Administration agitation Levothyroxine Sodium 100 mcg 05/31/20 06:30 07/04/20 09:52 Levothyroxine Sodium 100 Mcg Tablet PO 100 mcg DAILY@0630 [place] Administration Magnesium Hydroxide 30 ml 05/31/20 00:01 Milk Of Magnesia 30 Ml Oral.Susp PO Q24H PRN Constipation Nicotine Polacrilex 2 mg 05/31/20 00:01 Nicotine Polacrilex 2 Mg Gum BUCCAL Q2H PRN Nicotine Cravings Oxybutynin Chloride 10 mg 05/31/20 09:00 07/03/20 08:54 Oxybutynin Chloride Er 5 Mg Tab.Er.24 PO 10 mg DAILY [place] Administration Propranolol HCl 20 mg 06/02/20 21:00 07/04/20 22:27 Propranolol Hcl 10 Mg Tablet PO 20 mg TID@0830,1330,2100 [place] Administration Protocol Quetiapine Fumarate 50 mg 05/31/20 00:01 07/01/20 02:36 Quetiapine Fumarate 50 Mg Tablet PO 50 mg Q4H PRN Administration anxiety/restlessness Trazodone HCl 50 mg 06/01/20 11:41 06/30/20 23:54 Trazodone Hcl 50 Mg Tablet PO 50 mg BEDTIME PRN Administration Insomnia Allergies Allergies Allergy/AdvReac Type Severity Reaction Status Date / Time No Known Allergies Allergy Unverified 05/17/20 19:50 [No Known Allergies*] Assessment & Plan Assessment & Plan (1) Bipolar 1 disorder, mixed: Status: Acute Code(s): F31.60 - Bipolar disorder, current episode mixed, unspecified Assessment and Plan: discharge planning continue clozapine Haldol ECT monitor for confusion side effects Greater than 50% of the session was spent on counseling and/or coordination of care Reason for contiued inpatient stay Substantial Risk for: inability to function and rapid decompensation
[2020-07-05] MEDS: Levothyroxine Sodium 100 MCG TABLET PO (06:34)
[2020-07-05 06:45] VITALS: BP 105/69; PULSE 83; RESP 20; TEMP 36.4; O2SAT 95
[2020-07-05 07:00] VITALS: BMI 33.0
[2020-07-05 08:56] VITALS: BP 105/69; PULSE 83
[2020-07-05] MEDS: diazePAM 2 MG TABLET PO ×2 (08:56→15:19)
[2020-07-05] MEDS: Propranolol HCL 10 MG TABLET 20 MG PO ×3 (08:56→22:18)
[2020-07-05] MEDS: Divalproex Sodium ER 250 MG TAB.ER.24H PO (08:57)
[2020-07-05] MEDS: HaloperidoL 5 MG TABLET PO ×2 (09:20→22:33)
[2020-07-05 15:17] VITALS: BP 128/91; PULSE 102
[2020-07-05] MEDS: Benztropine Mesylate 1 MG TABLET PO ×2 (15:19→22:33)
[2020-07-05] MEDS: LORazepam 1 MG TABLET PO (15:19)
[2020-07-05 18:00] VITALS: PULSE 112; RESP 20; TEMP 36.3
[2020-07-05] MEDS: Acetaminophen 325 MG TABLET 650 MG PO (21:03)
[2020-07-05 22:18] VITALS: BP 129/81; PULSE 124
[2020-07-05] MEDS: cloZAPine 100 MG TABLET 200 MG PO (22:18)
--- NOTE | 2020-07-05 22:35 | HO.PSYCHPN ---
Subjective Subjective Reason For Visit: severe mood lability Interim History: with patient anxious worried about discharge some degree of tremor given Cogentin Mental Status Exam Mental Status Exam Narrative: Alert, eating with her roommate, and was earlier seen appropriately interacting with peers in kitchen Patient Appearance: Unkempt Patient Orientation: Person, Place, Time and Situation Level of Consciousness: Awake, Appropriate and Drowsy Patient Behavior: Cooperative and Anxious Mood Description: Calm and Fearful (of losing control again) Affect Description: Labile Patient Cognition Impaired: No Ability to Follow Directions: Fair Speech Pattern: Clear and Perseverating Memory Description: Episodic Impaired and Working Impaired Diagnostics Vital Signs (24Hr): Vital Signs - 24 hr 07/05/20 06:45 07/05/20 08:56 07/05/20 15:17 Temperature 97.5 F Pulse Rate 83 83 102 H Respiratory Rate 20 Blood Pressure 105/69 105/69 128/91 H Pulse Oximetry 95 07/05/20 18:00 07/05/20 22:18 Temperature 97.3 F Pulse Rate 112 H 124 H Respiratory Rate 20 Blood Pressure 129/81 Pulse Oximetry Body Mass Index 33.0 Labs Results: 06/23/20 09:57 06/19/20 16:16 Medications Medications Current Medications Generic Name Dose Route Start Last Admin Trade Name Freq PRN Reason Stop Dose Admin Acetaminophen 650 mg 05/31/20 00:01 07/05/20 21:03 Acetaminophen 325 Mg Tablet PO 650 mg Q6H PRN Administration Pain, Mild (Pain Scale 1-3) Al Hydroxide/Mg Hydroxide 30 ml 05/31/20 00:01 06/29/20 04:02 Magnesium Hydrox/Alum Hydrox 30 Ml Oral.Susp PO 30 ml Q6H PRN Administration Heartburn/nausea Benztropine Mesylate 1 mg 06/30/20 13:09 07/05/20 22:33 Benztropine Mesylate 1 Mg Tablet PO 1 mg TID PRN Administration Extrapyramidal Effects Clozapine 200 mg 06/07/20 21:00 07/05/20 22:18 Clozapine 100 Mg Tablet PO 200 mg BEDTIME [place] Administration Diazepam 2 mg 06/30/20 15:00 07/05/20 20:28 Diazepam 2 Mg Tablet PO Not Given TID [place] Divalproex Sodium 250 mg 06/27/20 09:00 07/05/20 08:57 Divalproex Sodium Er 250 Mg Tab.Er.24h PO 250 mg DAILY [place] Administration Haloperidol 5 mg 06/30/20 17:11 07/01/20 09:07 Haloperidol 5 Mg Tablet PO 5 mg Q4H PRN Administration psychotic agitation Haloperidol 5 mg 07/03/20 08:30 07/05/20 22:33 Haloperidol 5 Mg Tablet PO 5 mg BID@0830,2030 [place] Administration Hydroxyzine HCl 25 mg 05/31/20 21:00 07/01/20 01:28 EST Hydroxyzine Hcl 25 Mg Tablet PO 25 mg BEDTIME MRX1 PRN Administration NIGHT TIME ANXIETY Hydroxyzine HCl 50 mg 06/30/20 17:12 06/30/20 17:41 Hydroxyzine Hcl 50 Mg Tablet PO 50 mg Q6H PRN Administration agitation Levothyroxine Sodium 100 mcg 05/31/20 06:30 07/05/20 06:34 Levothyroxine Sodium 100 Mcg Tablet PO 100 mcg DAILY@0630 [place] Administration Magnesium Hydroxide 30 ml 05/31/20 00:01 Milk Of Magnesia 30 Ml Oral.Susp PO Q24H PRN Constipation Nicotine Polacrilex 2 mg 05/31/20 00:01 Nicotine Polacrilex 2 Mg Gum BUCCAL Q2H PRN Nicotine Cravings Oxybutynin Chloride 10 mg 05/31/20 09:00 07/05/20 08:57 Oxybutynin Chloride Er 5 Mg Tab.Er.24 PO 10 mg DAILY [place] Administration Propranolol HCl 20 mg 06/02/20 21:00 07/05/20 22:18 Propranolol Hcl 10 Mg Tablet PO 20 mg TID@0830,1330,2100 [place] Administration Protocol Quetiapine Fumarate 50 mg 05/31/20 00:01 07/01/20 02:36 Quetiapine Fumarate 50 Mg Tablet PO 50 mg Q4H PRN Administration anxiety/restlessness Trazodone HCl 50 mg 06/01/20 11:41 06/30/20 23:54 Trazodone Hcl 50 Mg Tablet PO 50 mg BEDTIME PRN Administration Insomnia Allergies Allergies Allergy/AdvReac Type Severity Reaction Status Date / Time No Known Allergies Allergy Unverified 05/17/20 19:50 [No Known Allergies*] Assessment & Plan Assessment & Plan (1) Bipolar 1 disorder, mixed: Status: Acute Code(s): F31.60 - Bipolar disorder, current episode mixed, unspecified Assessment and Plan: discharge planning continue clozapine Haldol ECT monitor for confusion side effects continue ect Greater than 50% of the session was spent on counseling and/or coordination of care Patient educated on: diagnosis and medication risk/benefits Informed Consent: further education needed Reason for contiued inpatient stay Substantial Risk for: rapid decompensation
[2020-07-06] VITALS (11 sets, daily range): BP systolic 117–155; BP diastolic 76–100; PULSE 79–99; RESP 16–18; TEMP 36.3–36.9; O2SAT 97–100; BMI 33.0
--- NOTE | 2020-07-06 07:04 | HO.ECTPROC ---
ECT Procedure Note Diagnosis/Treatment Diagnosis: Bipolar disorder Previous ECT Date: 07/04/20 Current Treatment Number: 8 Treatment: Series Interval Clinical Notes: improving ECT Settings Device: THYMATRON DGx Electrode Placement: Rt temporal/ Lt frontal Program/Pulse Width: 0.50 Energy Percent: 100 Seizure Duration By EEG (in seconds): 45 By Motor Observation (in seconds): 20 Medications Administration General Anesthetic: Etomidate (14) Muscle Relaxant: Succinylcholine (100) Ancillary Medications Analgesics: Torodol - Pre ECT (15) Anti-emetics: Zofran - Pre ECT (4) Cardiovascular Medications: Labetolol (10 preect ) Miscillaneous Medications: Propofol (30) and Midazolam (2) Airway Management Airway Management: Bag Mask Ventilation Treatment Recommendations No Changes Recommended: No change Electrode Placement: Rt temporal/ Lt frontal Program/Pulse Width: 0.50 Pt Tolerated Procedure w/o Issue: Yes
--- NOTE | 2020-07-06 07:04 | MHC.SHP ---
Pre-Procedural Eval Section A The patient is an INPATIENT: Yes Changes since office visit: No Cold of Flu in the past 2 weeks, No New Medical Problems, No Changes in Medication and No Patient answered all questions The History & Physical has been completed within 30 days and I have reviewed it.: Yes Section B Chief Complaint: severe mood lability Allergies: Allergies Allergy/AdvReac Type Severity Reaction Status Date / Time No Known Allergies Allergy Unverified 05/17/20 19:50 [No Known Allergies*] Plan Diagnosis/Plan: Unchanged Patient has been examined and remains a candidate for the planned procedure
--- NOTE | 2020-07-06 08:03 | HO.ANESPROP2 ---
[facility] Past Medical History Medical History Bipolar 1 disorder, mixed Hypothyroidism OCD (obsessive compulsive disorder) Social History Social History Smoking Status: Former smoker Packs Per Day: 1 Cigarettes Per Day: 20.0 Years Smoked: 15 Smoked in Last 30 Days: No Use of substances other than those prescribed or required for medical reasons: No Substance Use Type Other:: pt states history of marijuana and cocaine use years ago Currently Displaying Signs/Symptoms of Drug Intoxication Withdrawal: No Have you been hit, kicked, punched, or otherwise hurt by someone within the past year? If so, by whom?: No Advance Directives: No Advance Directives Information Provided: No Advance Directives on File: No Do you have thoughts of harming others: None Do you have a plan to hurt others: No Plan Recently lost weight without trying: Unsure Meds Allergies Allergy/AdvReac Type Severity Reaction Status Date / Time No Known Allergies Allergy Unverified 05/17/20 19:50 [No Known Allergies*] Home Medications Medication Instructions Recorded Confirmed Type diazepam 10 mg PO BID PRN 05/30/20 05/30/20 History divalproex 500 mg PO BID 05/30/20 05/30/20 History levothyroxine 100 mcg PO DAILY 05/30/20 05/30/20 History lurasidone 40 mg PO DAILY 05/30/20 05/30/20 History oxybutynin chloride 10 mg PO DAILY 05/30/20 05/30/20 History quetiapine 200 mg PO BEDTIME 05/30/20 05/30/20 History Exam Exam Date and Time: July 06, 2020 0803 Height,Weight and Vital Signs: Height 5 ft 1 in Weight 79.3 kg Last Vital Signs Temp 97.3 F 07/06/20 06:39 Pulse 97 07/06/20 06:39 Resp 18 07/06/20 06:39 BP 125/86 07/06/20 06:39 Pulse Ox 99 07/06/20 06:36 Pertinent Lab Results Pertinent Lab Results: Laboratory Tests 05/08/20 05/09/20 05/11/20 20:32 16:31 08:02 WBC RBC Hgb Hct MCV MCH MCHC RDW RDW Coeff of Jacob Plt Count MPV Immature Gran % (Auto) Neut % (Auto) Lymph % (Auto) Walton % (Auto) Eos % (Auto) Baso % (Auto) Neut # (Auto) Lymph # (Auto) Walton # (Auto) Eos # (Auto) Baso # (Auto) Abs Immat Gran (auto) Absolute Neuts (auto) Absolute Lymphs (auto) Absolute Monos (auto) Absolute Eos (auto) Absolute Basos (auto) Absolute Nucleated RBC Nucleated RBC % (auto) Absolute Neutrophils Sodium 140 Potassium 4.4 Chloride 106 Carbon Dioxide Bicarbonate 25 Anion Gap 13 BUN 14 Creatinine 0.83 Estimated Creat Clear 91.2 Estim Creat Clear Calc Estimated GFR Est GFR (Non-Af Amer) > 60 Random Glucose Fasting Glucose 91 Calcium 8.8 D Total Bilirubin 0.6 AST 11 ALT 12 Alkaline Phosphatase 54 D Total Protein 6.2 L Albumin 3.9 Vitamin B12 Folate Free T4 1.16 TSH 3rd Generation 1.08 Urine Opiates Screen NOT DETECTED Ur Barbiturates Screen NOT DETECTED Valproic Acid 50.6 Phencyclidine Screen NOT DETECTED Clozapine Norclozapine Ur Amphetamines Screen NOT DETECTED U Benzodiazepines Scrn POSITIVE H Urine Cocaine Screen NOT DETECTED U Cannabinoids Screen NOT DETECTED Coronavirus (PCR) NEGATIVE HIV 1&2 Antigen & Ab 05/11/20 05/11/20 05/16/20 08:02 08:02 12:00 WBC 7.4 Cancelled RBC 4.49 Cancelled Hgb 13.3 Cancelled Hct 40.6 Cancelled MCV 90.4 Cancelled MCH 29.6 Cancelled MCHC 32.8 Cancelled RDW RDW Coeff of Jacob 13.2 Cancelled Plt Count 288 Cancelled MPV 11.0 Cancelled Immature Gran % (Auto) 0.3 Cancelled Neut % (Auto) 51.9 Cancelled Lymph % (Auto) 35.4 Cancelled Walton % (Auto) 11.6 H Cancelled Eos % (Auto) 0.1 Cancelled Baso % (Auto) 0.7 Cancelled Neut # (Auto) Lymph # (Auto) Walton # (Auto) Eos # (Auto) Baso # (Auto) Abs Immat Gran (auto) 0.02 Cancelled Absolute Neuts (auto) Absolute Lymphs (auto) 2.6 Cancelled Absolute Monos (auto) 0.9 Cancelled Absolute Eos (auto) 0.0 Cancelled Absolute Basos (auto) 0.1 Cancelled Absolute Nucleated RBC 0.000 Cancelled Nucleated RBC % (auto) 0.0 Cancelled Absolute Neutrophils 3.9 Sodium Potassium Chloride Carbon Dioxide Bicarbonate Anion Gap BUN Creatinine Estimated Creat Clear Estim Creat Clear Calc Estimated GFR Est GFR (Non-Af Amer) Random Glucose Fasting Glucose Calcium Total Bilirubin AST ALT Alkaline Phosphatase Total Protein Albumin Vitamin B12 998 H Folate 15.9 Free T4 TSH 3rd Generation Urine Opiates Screen Ur Barbiturates Screen Valproic Acid Phencyclidine Screen Clozapine Norclozapine Ur Amphetamines Screen U Benzodiazepines Scrn Urine Cocaine Screen U Cannabinoids Screen Coronavirus (PCR) HIV 1&2 Antigen & Ab 05/17/20 05/18/20 05/23/20 07:52 07:16 08:00 WBC 7.8 RBC 4.47 Hgb 13.4 Hct 40.5 MCV 90.6 MCH 30.0 MCHC 33.1 RDW RDW Coeff of Jacob 13.0 Plt Count 278 MPV 10.8 Immature Gran % (Auto) 0.3 Neut % (Auto) 51.5 Lymph % (Auto) 33.5 Walton % (Auto) 8.8 Eos % (Auto) 5.5 H Baso % (Auto) 0.4 Neut # (Auto) Lymph # (Auto) Walton # (Auto) Eos # (Auto) Baso # (Auto) Abs Immat Gran (auto) 0.02 Absolute Neuts (auto) Absolute Lymphs (auto) 2.6 Absolute Monos (auto) 0.7 Absolute Eos (auto) 0.4 Absolute Basos (auto) 0.0 Absolute Nucleated RBC 0.000 Nucleated RBC % (auto) 0.0 Absolute Neutrophils 4.0 Sodium Potassium Chloride Carbon Dioxide Bicarbonate Anion Gap BUN Creatinine Estimated Creat Clear Estim Creat Clear Calc Estimated GFR Est GFR (Non-Af Amer) Random Glucose Fasting Glucose Calcium Total Bilirubin AST ALT Alkaline Phosphatase Total Protein Albumin Vitamin B12 Folate Free T4 TSH 3rd Generation Urine Opiates Screen Ur Barbiturates Screen Valproic Acid Phencyclidine Screen Clozapine Cancelled Norclozapine Cancelled Ur Amphetamines Screen U Benzodiazepines Scrn Urine Cocaine Screen U Cannabinoids Screen Coronavirus (PCR) HIV 1&2 Antigen & Ab NONREACTIVE 05/24/20 06/02/20 06/04/20 09:20 10:41 09:51 WBC 9.4 RBC Hgb Hct MCV MCH MCHC RDW RDW Coeff of Jacob Plt Count MPV Immature Gran % (Auto) Neut % (Auto) Lymph % (Auto) Walton % (Auto) Eos % (Auto) Baso % (Auto) Neut # (Auto) 7.6 Lymph # (Auto) Walton # (Auto) Eos # (Auto) Baso # (Auto) Abs Immat Gran (auto) Absolute Neuts (auto) Absolute Lymphs (auto) Absolute Monos (auto) Absolute Eos (auto) Absolute Basos (auto) Absolute Nucleated RBC Nucleated RBC % (auto) Absolute Neutrophils 5.3 Sodium Potassium Chloride Carbon Dioxide Bicarbonate Anion Gap BUN Creatinine Estimated Creat Clear Estim Creat Clear Calc Estimated GFR Est GFR (Non-Af Amer) Random Glucose Fasting Glucose Calcium Total Bilirubin AST ALT Alkaline Phosphatase Total Protein Albumin Vitamin B12 Folate Free T4 TSH 3rd Generation Urine Opiates Screen Ur Barbiturates Screen Valproic Acid Phencyclidine Screen Clozapine 419 Norclozapine 111 Ur Amphetamines Screen U Benzodiazepines Scrn Urine Cocaine Screen U Cannabinoids Screen Coronavirus (PCR) HIV 1&2 Antigen & Ab 06/09/20 06/14/20 06/16/20 09:39 06:57 13:13 WBC RBC Hgb Hct MCV MCH MCHC RDW RDW Coeff of Jacob Plt Count MPV Immature Gran % (Auto) Neut % (Auto) Lymph % (Auto) Walton % (Auto) Eos % (Auto) Baso % (Auto) Neut # (Auto) Lymph # (Auto) Walton # (Auto) Eos # (Auto) Baso # (Auto) Abs Immat Gran (auto) Absolute Neuts (auto) 6.8 Absolute Lymphs (auto) Absolute Monos (auto) Absolute Eos (auto) Absolute Basos (auto) Absolute Nucleated RBC Nucleated RBC % (auto) Absolute Neutrophils Sodium Potassium Chloride Carbon Dioxide Bicarbonate Anion Gap BUN Creatinine Estimated Creat Clear Estim Creat Clear Calc Estimated GFR Est GFR (Non-Af Amer) Random Glucose Fasting Glucose Calcium Total Bilirubin AST ALT Alkaline Phosphatase Total Protein Albumin Vitamin B12 Folate Free T4 TSH 3rd Generation Urine Opiates Screen Ur Barbiturates Screen Valproic Acid Phencyclidine Screen Clozapine 451 289 Norclozapine 115 110 Ur Amphetamines Screen U Benzodiazepines Scrn Urine Cocaine Screen U Cannabinoids Screen Coronavirus (PCR) HIV 1&2 Antigen & Ab 06/16/20 06/16/20 06/18/20 13:13 13:13 07:44 WBC 14.6 H 9.5 RBC 4.63 4.94 Hgb 13.9 14.9 Hct 41.8 45.9 MCV 90.3 92.9 MCH 30.0 30.2 MCHC 33.3 32.5 RDW 13.2 13.4 RDW Coeff of Jacob Plt Count 345 303 MPV 10.5 10.3 Immature Gran % (Auto) 0.4 0.5 H Neut % (Auto) 75.0 H 47.0 Lymph % (Auto) 13.8 L 37.2 Walton % (Auto) 6.4 9.4 Eos % (Auto) 3.9 5.3 H Baso % (Auto) 0.5 0.6 Neut # (Auto) Lymph # (Auto) 2.0 3.5 Walton # (Auto) 0.9 0.9 Eos # (Auto) 0.6 H 0.5 H Baso # (Auto) 0.1 0.1 Abs Immat Gran (auto) 0.06 H 0.05 H Absolute Neuts (auto) 10.9 H 4.5 Absolute Lymphs (auto) Absolute Monos (auto) Absolute Eos (auto) Absolute Basos (auto) Absolute Nucleated RBC 0.000 0.000 Nucleated RBC % (auto) 0.0 0.0 Absolute Neutrophils Sodium Potassium Chloride Carbon Dioxide Bicarbonate Anion Gap BUN Creatinine Estimated Creat Clear Estim Creat Clear Calc Estimated GFR Est GFR (Non-Af Amer) Random Glucose Fasting Glucose Calcium Total Bilirubin AST ALT Alkaline Phosphatase Total Protein Albumin Vitamin B12 Folate Free T4 TSH 3rd Generation Urine Opiates Screen Ur Barbiturates Screen Valproic Acid 72.7 Phencyclidine Screen Clozapine Norclozapine Ur Amphetamines Screen U Benzodiazepines Scrn Urine Cocaine Screen U Cannabinoids Screen Coronavirus (PCR) HIV 1&2 Antigen & Ab 06/18/20 06/19/20 06/23/20 07:44 16:16 09:57 WBC 9.9 RBC Hgb Hct MCV MCH MCHC RDW RDW Coeff of Jacob Plt Count MPV Immature Gran % (Auto) Neut % (Auto) Lymph % (Auto) Walton % (Auto) Eos % (Auto) Baso % (Auto) Neut # (Auto) Lymph # (Auto) Walton # (Auto) Eos # (Auto) Baso # (Auto) Abs Immat Gran (auto) Absolute Neuts (auto) 5.7 Absolute Lymphs (auto) Absolute Monos (auto) Absolute Eos (auto) Absolute Basos (auto) Absolute Nucleated RBC Nucleated RBC % (auto) Absolute Neutrophils Sodium 140 Potassium 4.5 Chloride 103 Carbon Dioxide 28 Bicarbonate Anion Gap 14 BUN 18 H Creatinine 0.80 Estimated Creat Clear Estim Creat Clear Calc 83.6 Estimated GFR > 60 Est GFR (Non-Af Amer) Random Glucose 99 Fasting Glucose Calcium 9.4 Total Bilirubin 0.2 AST 15 ALT 18 Alkaline Phosphatase 61 Total Protein 6.9 Albumin 4.1 Vitamin B12 Folate Free T4 TSH 3rd Generation Urine Opiates Screen Ur Barbiturates Screen Valproic Acid 75.0 Phencyclidine Screen Clozapine Norclozapine Ur Amphetamines Screen U Benzodiazepines Scrn Urine Cocaine Screen U Cannabinoids Screen Coronavirus (PCR) HIV 1&2 Antigen & Ab 06/30/20 13:54 WBC RBC Hgb Hct MCV MCH MCHC RDW RDW Coeff of Jacob Plt Count MPV Immature Gran % (Auto) Neut % (Auto) Lymph % (Auto) Walton % (Auto) Eos % (Auto) Baso % (Auto) Neut # (Auto) Lymph # (Auto) Walton # (Auto) Eos # (Auto) Baso # (Auto) Abs Immat Gran (auto) Absolute Neuts (auto) 6.4 Absolute Lymphs (auto) Absolute Monos (auto) Absolute Eos (auto) Absolute Basos (auto) Absolute Nucleated RBC Nucleated RBC % (auto) Absolute Neutrophils Sodium Potassium Chloride Carbon Dioxide Bicarbonate Anion Gap BUN Creatinine Estimated Creat Clear Estim Creat Clear Calc Estimated GFR Est GFR (Non-Af Amer) Random Glucose Fasting Glucose Calcium Total Bilirubin AST ALT Alkaline Phosphatase Total Protein Albumin Vitamin B12 Folate Free T4 TSH 3rd Generation Urine Opiates Screen Ur Barbiturates Screen Valproic Acid Phencyclidine Screen Clozapine Norclozapine Ur Amphetamines Screen U Benzodiazepines Scrn Urine Cocaine Screen U Cannabinoids Screen Coronavirus (PCR) HIV 1&2 Antigen & Ab Airway Mallampati Class: III TM Dist: >3cm Neck ROM: Full
--- NOTE | 2020-07-06 08:33 | P.CONAN_ITS ---
[facility] Past Medical History Medical History Bipolar 1 disorder, mixed Hypothyroidism OCD (obsessive compulsive disorder) Social History Social History Are you a primary clinical care leader to a significant other at home: No Do you presently have visiting nurse or other home services: No Smoking Status: Former smoker Packs Per Day: 1 Cigarettes Per Day: 20.0 Years Smoked: 15 Smoked in Last 30 Days: No Second Hand Smoke Exposure: No Use of substances other than those prescribed or required for medical reasons: No Substance Use Type Other:: pt states history of marijuana and cocaine use years ago Currently Displaying Signs/Symptoms of Drug Intoxication Withdrawal: No Have you been hit, kicked, punched, or otherwise hurt by someone within the past year? If so, by whom?: No Advance Directives: No Advance Directives Information Provided: No Advance Directives on File: No Do you have thoughts of harming others: None Do you have a plan to hurt others: No Plan Recently lost weight without trying: No Meds Allergies Allergy/AdvReac Type Severity Reaction Status Date / Time No Known Allergies Allergy Unverified 05/17/20 19:50 [No Known Allergies*] Home Medications Medication Instructions Recorded Confirmed Type diazepam 10 mg PO BID PRN 05/30/20 05/30/20 History divalproex 500 mg PO BID 05/30/20 05/30/20 History levothyroxine 100 mcg PO DAILY 05/30/20 05/30/20 History lurasidone 40 mg PO DAILY 05/30/20 05/30/20 History oxybutynin chloride 10 mg PO DAILY 05/30/20 05/30/20 History quetiapine 200 mg PO BEDTIME 05/30/20 05/30/20 History Exam Airway Mallampati Class: II TM Dist: >3cm Neck ROM: Full Assessment and Plan Assessment Anesthesia Assessment: Anesthesia Plan Discussed and Chart Reviewed Final Anesthetic Review NPO: Yes ASA Class: II Final Preanesthetic Review: No Changes in Pt Med Stat, Meds/Allgs Chart Reviewed, Consent Obtained/Reviewed and Anes Risks/Benef Reviewed Patient Risk: Low Procedure Risk: Low Assessment/Block/Sedation in SS: Assess/Block/Sedation-SS Anesthetic Plan Anesthetic Plan: GA Disposition: Standard PACU
--- NOTE | 2020-07-06 10:11 | PC.NURSE ---
late entry.pt to pacu for ect procedure.iv inserted. LR infusing. anesthesia to enter order.
[2020-07-06] MEDS: Propranolol HCL 10 MG TABLET 20 MG PO ×2 (11:48→21:38)
[2020-07-06] MEDS: Levothyroxine Sodium 100 MCG TABLET PO (11:58)
[2020-07-06] MEDS: diazePAM 2 MG TABLET PO ×3 (11:59→21:39)
[2020-07-06] MEDS: Divalproex Sodium ER 250 MG TAB.ER.24H PO (12:00)
[2020-07-06] MEDS: Acetaminophen 325 MG TABLET 650 MG PO (15:08)
[2020-07-06] MEDS: Benztropine Mesylate 1 MG TABLET PO (20:18)
[2020-07-06] MEDS: HaloperidoL 5 MG TABLET PO (20:18)
[2020-07-06] MEDS: cloZAPine 100 MG TABLET 200 MG PO (21:38)
[2020-07-06] MEDS: Divalproex Sodium ER 500 MG TAB.ER.24H PO (21:39)
[2020-07-07] MEDS: Levothyroxine Sodium 100 MCG TABLET PO (06:45)
[2020-07-07 10:30] VITALS: BP 150/97; PULSE 123; TEMP 35.9; O2SAT 93
[2020-07-07] MEDS: Divalproex Sodium ER 500 MG TAB.ER.24H PO ×2 (10:32→22:04)
[2020-07-07] MEDS: Divalproex Sodium ER 250 MG TAB.ER.24H PO (10:34)
[2020-07-07] MEDS: diazePAM 2 MG TABLET PO ×3 (10:35→22:04)
[2020-07-07 10:36] VITALS: BP 150/97; PULSE 123
[2020-07-07] MEDS: HaloperidoL 5 MG TABLET PO ×2 (10:36→21:50)
[2020-07-07] MEDS: Propranolol HCL 10 MG TABLET 20 MG PO ×3 (10:36→22:04)
[2020-07-07 10:45] LABS: Neut%MD 63.9 %; Neutrophils Absolute Auto 5.3 X10*3/uL (2.0-8.3); WBCANC 8.3 X10*3/uL
[2020-07-07 13:52] VITALS: BP 138/84; PULSE 106
--- NOTE | 2020-07-07 20:51 | HO.PSYCHPN ---
Subjective Subjective Date of Service: 07/07/20 Reason For Visit: severe mood lability Subjective Notes: Conditional Voluntary Interim History: Dariela remains very anxious but she does seem to respond to support more effectively. She was spending time with one of her peers. She spoke of her difficulty with the tumult on the unit today. Medication Compliance: Yes Side effects from medications: No Attending Groups: Yes Review of Systems Acute medical concerns: No Medical Review of Systems: unchanged Mental Status Exam Mental Status Exam Narrative: Alert, eating with her roommate, and was earlier seen appropriately interacting with peers in kitchen Patient Appearance: Disheveled Patient Orientation: Person, Place, Time and Situation Level of Consciousness: Awake and Appropriate Patient Behavior: Cooperative and Anxious Mood Description: Calm and Fearful (of losing control again) Affect Description: Labile Patient Cognition Impaired: No Ability to Follow Directions: Fair Speech Pattern: Clear and Perseverating Memory Description: Episodic Impaired and Working Impaired Hallucinations: None Delusions: Not Present Thought Process: Distracted Thought Content: positive for [place], positive for Obsessional Thoughts, positive for Perseveration, negative for Suicidal Ideation and negative for Homicidal Ideation Judgement: Fair Diagnostics Vital Signs (24Hr): Vital Signs - 24 hr 07/06/20 21:38 07/07/20 10:30 07/07/20 10:36 Temperature 96.6 F L Pulse Rate 86 123 H 123 H Blood Pressure 117/76 150/97 H 150/97 H Pulse Oximetry 93 07/07/20 13:52 Temperature Pulse Rate 106 H Blood Pressure 138/84 Pulse Oximetry Body Mass Index 33.0 Labs Results: 06/23/20 09:57 06/19/20 16:16 Labs: Laboratory Results - last 48 hr 07/07/20 10:25 Absolute Neuts (auto) 5.3 Medications Medications Current Medications Generic Name Dose Route Start Last Admin Trade Name Freq PRN Reason Stop Dose Admin Acetaminophen 650 mg 05/31/20 00:01 07/06/20 15:08 Acetaminophen 325 Mg Tablet PO 650 mg Q6H PRN Administration Pain, Mild (Pain Scale 1-3) Al Hydroxide/Mg Hydroxide 30 ml 05/31/20 00:01 06/29/20 04:02 Magnesium Hydrox/Alum Hydrox 30 Ml Oral.Susp PO 30 ml Q6H PRN Administration Heartburn/nausea Benztropine Mesylate 1 mg 06/30/20 13:09 07/06/20 20:18 Benztropine Mesylate 1 Mg Tablet PO 1 mg TID PRN Administration Extrapyramidal Effects Clozapine 200 mg 06/07/20 21:00 07/06/20 21:38 Clozapine 100 Mg Tablet PO 200 mg BEDTIME [place] Administration Diazepam 2 mg 06/30/20 15:00 07/07/20 16:37 Diazepam 2 Mg Tablet PO 2 mg TID [place] Administration Diazepam 10 mg 07/06/20 09:22 Diazepam 10 Mg Tablet PO BID PRN Anxiety Divalproex Sodium 250 mg 06/27/20 09:00 07/07/20 10:34 Divalproex Sodium Er 250 Mg Tab.Er.24h PO 250 mg DAILY [place] Administration Divalproex Sodium 500 mg 07/06/20 21:00 07/07/20 10:32 Divalproex Sodium Er 500 Mg Tab.Er.24h PO 500 mg BID [place] Administration Haloperidol 5 mg 06/30/20 17:11 07/01/20 09:07 Haloperidol 5 Mg Tablet PO 5 mg Q4H PRN Administration psychotic agitation Haloperidol 5 mg 07/03/20 08:30 07/07/20 10:36 Haloperidol 5 Mg Tablet PO 5 mg BID@0830,2030 [place] Administration Hydroxyzine HCl 25 mg 05/31/20 21:00 07/01/20 01:28 EST Hydroxyzine Hcl 25 Mg Tablet PO 25 mg BEDTIME MRX1 PRN Administration NIGHT TIME ANXIETY Hydroxyzine HCl 50 mg 06/30/20 17:12 06/30/20 17:41 Hydroxyzine Hcl 50 Mg Tablet PO 50 mg Q6H PRN Administration agitation Levothyroxine Sodium 100 mcg 05/31/20 06:30 07/07/20 06:45 Levothyroxine Sodium 100 Mcg Tablet PO 100 mcg DAILY@0630 [place] Administration Magnesium Hydroxide 30 ml 05/31/20 00:01 Milk Of Magnesia 30 Ml Oral.Susp PO Q24H PRN Constipation Nicotine Polacrilex 2 mg 05/31/20 00:01 Nicotine Polacrilex 2 Mg Gum BUCCAL Q2H PRN Nicotine Cravings Oxybutynin Chloride 10 mg 05/31/20 09:00 07/07/20 10:33 Oxybutynin Chloride Er 5 Mg Tab.Er.24 PO 10 mg DAILY [place] Administration Propranolol HCl 20 mg 06/02/20 21:00 07/07/20 13:52 Propranolol Hcl 10 Mg Tablet PO 20 mg TID@0830,1330,2100 [place] Administration Protocol Quetiapine Fumarate 50 mg 05/31/20 00:01 07/01/20 02:36 Quetiapine Fumarate 50 Mg Tablet PO 50 mg Q4H PRN Administration anxiety/restlessness Trazodone HCl 50 mg 06/01/20 11:41 06/30/20 23:54 Trazodone Hcl 50 Mg Tablet PO 50 mg BEDTIME PRN Administration Insomnia Allergies Allergies Allergy/AdvReac Type Severity Reaction Status Date / Time No Known Allergies Allergy Unverified 05/17/20 19:50 [No Known Allergies*] Assessment & Plan Assessment & Plan (1) OCD (obsessive compulsive disorder): Qualifiers: Obsessive-compulsive disorder type: mixed obsessional thoughts and acts Qualified Code(s): F42.2 - Mixed obsessional thoughts and acts Status: Acute Code(s): F42.9 - Obsessive-compulsive disorder, unspecified (2) Bipolar 1 disorder, mixed: Status: Acute Code(s): F31.60 - Bipolar disorder, current episode mixed, unspecified Assessment and Plan: CT current treatment plan Greater than 50% of the session was spent on counseling and/or coordination of care Patient educated on: diagnosis and medication risk/benefits Informed Consent: further education needed Reason for contiued inpatient stay Substantial Risk for: rapid decompensation
[2020-07-07 22:04] VITALS: BP 142/90; PULSE 117
[2020-07-07] MEDS: cloZAPine 100 MG TABLET 200 MG PO (22:04)
[2020-07-08 06:15] VITALS: BP 109/72; PULSE 73; RESP 18; TEMP 35.6; O2SAT 100
[2020-07-08] MEDS: Levothyroxine Sodium 100 MCG TABLET PO (06:30)
[2020-07-08] MEDS: diazePAM 2 MG TABLET PO ×3 (08:23→22:07)
[2020-07-08 08:24] VITALS: BP 109/72; PULSE 73
[2020-07-08] MEDS: Propranolol HCL 10 MG TABLET 20 MG PO ×3 (08:24→22:06)
[2020-07-08] MEDS: Divalproex Sodium ER 500 MG TAB.ER.24H PO ×2 (08:24→22:07)
[2020-07-08] MEDS: Divalproex Sodium ER 250 MG TAB.ER.24H PO (08:25)
--- NOTE | 2020-07-08 12:18 | HO.PSYCHPN ---
Subjective Subjective Date of Service: 07/08/20 Reason For Visit: severe mood lability Subjective Notes: Conditional Voluntary Interim History: Dariela remains very anxious but she does seem to respond to support more effectively. She was spending time with one of her peers. She spoke of her difficulty with the tumult on the unit today. She was easier to re-direct. Medication Compliance: Yes Side effects from medications: No Attending Groups: Intermittent Review of Systems Acute medical concerns: No Medical Review of Systems: unchanged Mental Status Exam Mental Status Exam Narrative: Alert, eating with her roommate, and was earlier seen appropriately interacting with peers in kitchen Patient Appearance: Disheveled Patient Orientation: Person, Place, Time and Situation Level of Consciousness: Awake and Appropriate Patient Behavior: Cooperative and Anxious Mood Description: Calm and Fearful (of losing control again) Affect Description: Labile Patient Cognition Impaired: No Ability to Follow Directions: Fair Speech Pattern: Clear and Perseverating Memory Description: Episodic Impaired and Working Impaired Thought Content: positive for Intact, positive for Obsessional Thoughts, positive for Perseveration, positive for Thought Blocking, negative for Suicidal Ideation and negative for Homicidal Ideation Judgement: Fair Diagnostics Vital Signs (24Hr): Vital Signs - 24 hr 07/07/20 13:52 07/07/20 22:04 07/08/20 06:15 Temperature 96.1 F L Pulse Rate 106 H 117 H 73 Respiratory Rate 18 Blood Pressure 138/84 142/90 H 109/72 Pulse Oximetry 100 07/08/20 08:24 Temperature Pulse Rate 73 Respiratory Rate Blood Pressure 109/72 Pulse Oximetry Body Mass Index 33.0 Labs Results: 06/23/20 09:57 06/19/20 16:16 Labs: Laboratory Results - last 48 hr 07/07/20 10:25 Absolute Neuts (auto) 5.3 Medications Medications Current Medications Generic Name Dose Route Start Last Admin Trade Name Freq PRN Reason Stop Dose Admin Acetaminophen 650 mg 05/31/20 00:01 07/06/20 15:08 Acetaminophen 325 Mg Tablet PO 650 mg Q6H PRN Administration Pain, Mild (Pain Scale 1-3) Al Hydroxide/Mg Hydroxide 30 ml 05/31/20 00:01 06/29/20 04:02 Magnesium Hydrox/Alum Hydrox 30 Ml Oral.Susp PO 30 ml Q6H PRN Administration Heartburn/nausea Benztropine Mesylate 1 mg 06/30/20 13:09 07/06/20 20:18 Benztropine Mesylate 1 Mg Tablet PO 1 mg TID PRN Administration Extrapyramidal Effects Clozapine 200 mg 06/07/20 21:00 07/07/20 22:04 Clozapine 100 Mg Tablet PO 200 mg BEDTIME [place] Administration Diazepam 2 mg 06/30/20 15:00 07/08/20 08:23 Diazepam 2 Mg Tablet PO 2 mg TID [place] Administration Diazepam 10 mg 07/06/20 09:22 Diazepam 10 Mg Tablet PO BID PRN Anxiety Divalproex Sodium 250 mg 06/27/20 09:00 07/08/20 08:25 Divalproex Sodium Er 250 Mg Tab.Er.24h PO 250 mg DAILY [place] Administration Divalproex Sodium 500 mg 07/06/20 21:00 07/08/20 08:24 Divalproex Sodium Er 500 Mg Tab.Er.24h PO 500 mg BID [place] Administration Haloperidol 5 mg 06/30/20 17:11 07/01/20 09:07 Haloperidol 5 Mg Tablet PO 5 mg Q4H PRN Administration psychotic agitation Haloperidol 5 mg 07/03/20 08:30 07/07/20 21:50 Haloperidol 5 Mg Tablet PO 5 mg BID@0830,2030 [place] Administration Hydroxyzine HCl 25 mg 05/31/20 21:00 07/01/20 01:28 EST Hydroxyzine Hcl 25 Mg Tablet PO 25 mg BEDTIME MRX1 PRN Administration NIGHT TIME ANXIETY Hydroxyzine HCl 50 mg 06/30/20 17:12 06/30/20 17:41 Hydroxyzine Hcl 50 Mg Tablet PO 50 mg Q6H PRN Administration agitation Levothyroxine Sodium 100 mcg 05/31/20 06:30 07/08/20 06:30 Levothyroxine Sodium 100 Mcg Tablet PO 100 mcg DAILY@0630 [place] Administration Magnesium Hydroxide 30 ml 05/31/20 00:01 Milk Of Magnesia 30 Ml Oral.Susp PO Q24H PRN Constipation Nicotine Polacrilex 2 mg 05/31/20 00:01 Nicotine Polacrilex 2 Mg Gum BUCCAL Q2H PRN Nicotine Cravings Oxybutynin Chloride 10 mg 05/31/20 09:00 07/08/20 08:25 Oxybutynin Chloride Er 5 Mg Tab.Er.24 PO 10 mg DAILY [place] Administration Propranolol HCl 20 mg 06/02/20 21:00 07/08/20 08:24 Propranolol Hcl 10 Mg Tablet PO 20 mg TID@0830,1330,2100 [place] Administration Protocol Quetiapine Fumarate 50 mg 05/31/20 00:01 07/01/20 02:36 Quetiapine Fumarate 50 Mg Tablet PO 50 mg Q4H PRN Administration anxiety/restlessness Trazodone HCl 50 mg 06/01/20 11:41 06/30/20 23:54 Trazodone Hcl 50 Mg Tablet PO 50 mg BEDTIME PRN Administration Insomnia Allergies Allergies Allergy/AdvReac Type Severity Reaction Status Date / Time No Known Allergies Allergy Unverified 05/17/20 19:50 [No Known Allergies*] Assessment & Plan Assessment & Plan (1) OCD (obsessive compulsive disorder): Qualifiers: Obsessive-compulsive disorder type: mixed obsessional thoughts and acts Qualified Code(s): F42.2 - Mixed obsessional thoughts and acts Status: Acute Code(s): F42.9 - Obsessive-compulsive disorder, unspecified (2) Bipolar 1 disorder, mixed: Status: Acute Code(s): F31.60 - Bipolar disorder, current episode mixed, unspecified Assessment and Plan: CT current treatment plan Greater than 50% of the session was spent on counseling and/or coordination of care Patient educated on: diagnosis and medication risk/benefits Informed Consent: further education needed
[2020-07-08 13:42] VITALS: BP 123/84; PULSE 99
[2020-07-08] MEDS: HaloperidoL 5 MG TABLET PO ×2 (13:42→22:08)
[2020-07-08 22:06] VITALS: BP 130/84; PULSE 104
[2020-07-08] MEDS: cloZAPine 100 MG TABLET 200 MG PO (22:07)
[2020-07-08] MEDS: Benztropine Mesylate 1 MG TABLET PO (22:30)
[2020-07-09] VITALS (13 sets, daily range): BP systolic 105–144; BP diastolic 64–92; PULSE 68–107; RESP 15–20; TEMP 36.2–36.6; O2SAT 97–99; BMI 33.7
--- NOTE | 2020-07-09 07:03 | HO.ECTPROC ---
ECT Procedure Note Diagnosis/Treatment Diagnosis: Bipolar disorder Previous ECT Date: 07/06/20 Current Treatment Number: 9 Treatment: Series Interval Clinical Notes: Improving but sedated ECT Settings Device: THYMATRON DGx Electrode Placement: Rt temporal/ Lt frontal Program/Pulse Width: 0.50 Energy Percent: 100 Seizure Duration By EEG (in seconds): 32 By Motor Observation (in seconds): 25 Medications Administration General Anesthetic: Etomidate (14) Muscle Relaxant: Succinylcholine (100) Ancillary Medications Analgesics: Torodol - Pre ECT (15) Anti-emetics: Zofran - Pre ECT (4) Miscillaneous Medications: Propofol (30) and Midazolam (2) Airway Management Airway Management: Bag Mask Ventilation Treatment Recommendations Electrode Placement: Bitemporal Program/Pulse Width: 0.50 Energy Percent: 100 Notes: May change to BiT Pt Tolerated Procedure w/o Issue: Yes
[2020-07-09] MEDS: Levothyroxine Sodium 100 MCG TABLET PO (09:04)
[2020-07-09] MEDS: Divalproex Sodium ER 500 MG TAB.ER.24H PO ×2 (09:04→22:47)
[2020-07-09] MEDS: diazePAM 2 MG TABLET PO (09:04)
[2020-07-09] MEDS: Divalproex Sodium ER 250 MG TAB.ER.24H PO (09:05)
[2020-07-09] MEDS: Propranolol HCL 10 MG TABLET 20 MG PO ×3 (09:05→22:47)
[2020-07-09] MEDS: HaloperidoL 5 MG TABLET PO (10:19)
--- NOTE | 2020-07-09 21:24 | HO.PSYCHPN ---
Subjective Subjective Reason For Visit: severe mood lability Interim History: Dariela remains very anxious but she does seem to respond to support more effectively. She was spending time with one of her peers. She spoke of her difficulty with the tumult on the unit today. She was easier to re-direct.less agitated see ect note Mental Status Exam Mental Status Exam Narrative: Has worries regarding her cousin mood flat Patient Appearance: Disheveled Patient Orientation: Person, Place, Time and Situation Level of Consciousness: Awake and Appropriate Patient Behavior: Cooperative and Anxious Mood Description: Calm and Fearful (of losing control again) Affect Description: Labile Patient Cognition Impaired: No Ability to Follow Directions: Fair Speech Pattern: Clear and Perseverating Memory Description: Episodic Impaired and Working Impaired Diagnostics Vital Signs (24Hr): Vital Signs - 24 hr 07/08/20 22:06 07/09/20 06:00 07/09/20 06:27 Temperature 97.2 F 97.4 F Pulse Rate 104 H 73 89 Respiratory Rate 15 18 Blood Pressure 130/84 144/79 H 120/75 Pulse Oximetry 98 98 07/09/20 07:32 07/09/20 07:37 07/09/20 07:42 Temperature 97.9 F Pulse Rate 98 97 95 Respiratory Rate 16 17 18 Blood Pressure 131/84 105/75 112/80 Pulse Oximetry 99 99 99 07/09/20 07:47 07/09/20 07:52 07/09/20 07:57 Temperature 97.2 F Pulse Rate 95 95 92 Respiratory Rate 18 18 18 Blood Pressure 122/86 126/92 H 114/87 Pulse Oximetry 99 99 99 07/09/20 08:13 07/09/20 08:27 07/09/20 09:05 Temperature Pulse Rate 91 68 92 Respiratory Rate 18 20 Blood Pressure 132/84 125/91 H 143/88 H Pulse Oximetry 97 98 07/09/20 13:39 Temperature Pulse Rate 107 H Respiratory Rate Blood Pressure 138/64 Pulse Oximetry Body Mass Index 33.7 Labs Results: 07/10/20 08:08 06/19/20 16:16 Medications Medications Current Medications Generic Name Dose Route Start Last Admin Trade Name Freq PRN Reason Stop Dose Admin Acetaminophen 650 mg 05/31/20 00:01 07/06/20 15:08 Acetaminophen 325 Mg Tablet PO 650 mg Q6H PRN Administration Pain, Mild (Pain Scale 1-3) Al Hydroxide/Mg Hydroxide 30 ml 05/31/20 00:01 06/29/20 04:02 Magnesium Hydrox/Alum Hydrox 30 Ml Oral.Susp PO 30 ml Q6H PRN Administration Heartburn/nausea Benztropine Mesylate 1 mg 06/30/20 13:09 07/08/20 22:30 Benztropine Mesylate 1 Mg Tablet PO 1 mg TID PRN Administration Extrapyramidal Effects Clozapine 200 mg 06/07/20 21:00 07/08/20 22:07 Clozapine 100 Mg Tablet PO 200 mg BEDTIME [place] Administration Diazepam 2 mg 06/30/20 15:00 07/09/20 16:19 Diazepam 2 Mg Tablet PO Not Given TID [place] Diazepam 10 mg 07/06/20 09:22 Diazepam 10 Mg Tablet PO BID PRN Anxiety Divalproex Sodium 250 mg 06/27/20 09:00 07/09/20 09:05 Divalproex Sodium Er 250 Mg Tab.Er.24h PO 250 mg DAILY [place] Administration Divalproex Sodium 500 mg 07/06/20 21:00 07/09/20 09:04 Divalproex Sodium Er 500 Mg Tab.Er.24h PO 500 mg BID [place] Administration Haloperidol 5 mg 06/30/20 17:11 07/01/20 09:07 Haloperidol 5 Mg Tablet PO 5 mg Q4H PRN Administration psychotic agitation Haloperidol 5 mg 07/03/20 08:30 07/09/20 10:19 Haloperidol 5 Mg Tablet PO 5 mg BID@0830,2030 [place] Administration Hydroxyzine HCl 25 mg 05/31/20 21:00 07/01/20 01:28 EST Hydroxyzine Hcl 25 Mg Tablet PO 25 mg BEDTIME MRX1 PRN Administration NIGHT TIME ANXIETY Hydroxyzine HCl 50 mg 06/30/20 17:12 06/30/20 17:41 Hydroxyzine Hcl 50 Mg Tablet PO 50 mg Q6H PRN Administration agitation Levothyroxine Sodium 100 mcg 05/31/20 06:30 07/09/20 09:04 Levothyroxine Sodium 100 Mcg Tablet PO 100 mcg DAILY@0630 [place] Administration Magnesium Hydroxide 30 ml 05/31/20 00:01 Milk Of Magnesia 30 Ml Oral.Susp PO Q24H PRN Constipation Nicotine Polacrilex 2 mg 05/31/20 00:01 Nicotine Polacrilex 2 Mg Gum BUCCAL Q2H PRN Nicotine Cravings Oxybutynin Chloride 10 mg 05/31/20 09:00 07/09/20 09:04 Oxybutynin Chloride Er 5 Mg Tab.Er.24 PO 10 mg DAILY [place] Administration Propranolol HCl 20 mg 06/02/20 21:00 07/09/20 13:39 Propranolol Hcl 10 Mg Tablet PO 20 mg TID@0830,1330,2100 [place] Administration Protocol Quetiapine Fumarate 50 mg 05/31/20 00:01 07/01/20 02:36 Quetiapine Fumarate 50 Mg Tablet PO 50 mg Q4H PRN Administration anxiety/restlessness Trazodone HCl 50 mg 06/01/20 11:41 06/30/20 23:54 Trazodone Hcl 50 Mg Tablet PO 50 mg BEDTIME PRN Administration Insomnia Allergies Allergies Allergy/AdvReac Type Severity Reaction Status Date / Time No Known Allergies Allergy Unverified 05/17/20 19:50 [No Known Allergies*] Assessment & Plan Assessment & Plan (1) OCD (obsessive compulsive disorder): Qualifiers: Obsessive-compulsive disorder type: mixed obsessional thoughts and acts Qualified Code(s): F42.2 - Mixed obsessional thoughts and acts Status: Acute Code(s): F42.9 - Obsessive-compulsive disorder, unspecified (2) Bipolar 1 disorder, mixed: Status: Acute Code(s): F31.60 - Bipolar disorder, current episode mixed, unspecified Assessment and Plan: CT current treatment plan depakote clozaril Greater than 50% of the session was spent on counseling and/or coordination of care
[2020-07-09] MEDS: cloZAPine 100 MG TABLET 200 MG PO (22:46)
[2020-07-10 06:18] VITALS: BP 121/67; PULSE 70; RESP 20; TEMP 35.9; O2SAT 100
[2020-07-10] MEDS: Levothyroxine Sodium 100 MCG TABLET PO (06:57)
--- NOTE | 2020-07-10 08:00 | ECG_ITS ---
Test Reason : ON CLOZARIL, HALDOL Blood Pressure : / mmHG Vent. Rate : 080 BPM Atrial Rate : 080 BPM P-R Int : 134 ms QRS Dur : 076 ms QT Int : 354 ms P-R-T Axes : 064 -08 036 degrees QTc Int : 408 ms Sinus rhythm with marked sinus arrhythmia Otherwise normal ECG When compared with ECG of 17-JUN-2020 15:54, No significant change was found Referred By: Sudarshan Bryant Electronically Signed By:JOSELYN SHAVER MD
[2020-07-10 08:22] LABS: MANUAL DIFF FLAG NO
[2020-07-10 08:28] LABS: Basophils Percent Auto 0.4 % (0-2); Eosinophils Absolute Auto 0.2 X10*3/uL (0.0-0.4); Eosinophils Percent Auto 2.5 % (0-4); Hematocrit 42.3 % (37-47); Hemoglobin 13.8 g/dl (12.0-16.0); Imm Gran Abs Auto 0.02 X10*3/uL (0.00-0.03); Imm Gran Pct Auto 0.3 % (0.0-0.4); Lymphocytes Absolute Auto 2.4 X10*3/uL (1.2-4.9); Lymphocytes Percent Auto 33.9 % (20-40); Mean Corpuscular HGB Conc 32.6 g/dl (31.0-35.0); Mean Corpuscular Hemoglobin 30.4 pg (27.0-33.0); Mean Corpuscular Volume 93.2 fL (80-98); Monocytes Absolute Auto 0.7 X10*3/uL (0.1-1.2); Monocytes Percent Auto 9.5 % (2-11); Neutrophils Absolute Auto 3.8 X10*3/uL (2.0-8.3); Neutrophils Percent Auto 53.4 % (45-73); Platelet Count 347 X10*3/uL (160-400); Red Blood Count 4.54 X10*6/uL (4.20-5.50); Red Cell Distribution Width 12.9 % (11.0-16.0); White Blood Count 7.1 X10*3/uL (4.8-10.8)
[2020-07-10 08:59] LABS: Valproate 46.1 mcg/mL (50.0-100.0)
[2020-07-10 09:10] VITALS: BP 121/67; PULSE 70
[2020-07-10] MEDS: Propranolol HCL 10 MG TABLET 20 MG PO ×3 (09:10→22:52)
[2020-07-10] MEDS: diazePAM 2 MG TABLET PO ×3 (09:10→22:52)
[2020-07-10] MEDS: Divalproex Sodium ER 500 MG TAB.ER.24H PO (09:10)
[2020-07-10] MEDS: HaloperidoL 1 MG TABLET 2 MG PO ×2 (09:14→22:57)
[2020-07-10 12:51] VITALS: BP 131/87; PULSE 88
--- NOTE | 2020-07-10 15:24 | PC.NURSE ---
PT HAD NEW ORDER FOR D2, UNAVAILABLE. PHARMACY NOTIFIED AND WILL BRING MEDICATION UP WHEN AVAILABLE.
[2020-07-10] MEDS: cloZAPine 100 MG TABLET 200 MG PO (17:58)
[2020-07-10] MEDS: Divalproex Sodium ER 250 MG TAB.ER.24H 750 MG PO (17:58)
--- NOTE | 2020-07-10 21:13 | P.PNPSI_ITS ---
Subjective Subjective Reason For Visit: severe mood lability Interim History: Dariela remains very anxious but she does seem to respond to support more effectively. She was spending time with one of her peers. She was easier to re-direct.less agitated see ect note SHE REMAINS ANXIOUS ABOUT DISCHARGE continues to worry a obsessional a about basic functioning Mental Status Exam Mental Status Exam Narrative: Has worries regarding her cousin mood flat Patient Appearance: Disheveled Patient Orientation: Person, Place, Time and Situation Level of Consciousness: Awake and Appropriate Patient Behavior: Cooperative and Anxious Mood Description: Calm and Fearful (of losing control again) Affect Description: Labile Patient Cognition Impaired: No Ability to Follow Directions: Fair Speech Pattern: Clear and Perseverating Memory Description: Episodic Impaired and Working Impaired Diagnostics Vital Signs (24Hr): Vital Signs - 24 hr 07/09/20 22:47 07/10/20 06:18 07/10/20 09:10 Temperature 96.6 F L Pulse Rate 105 H 70 70 Respiratory Rate 20 Blood Pressure 112/75 121/67 121/67 Pulse Oximetry 100 07/10/20 12:51 Temperature Pulse Rate 88 Respiratory Rate Blood Pressure 131/87 Pulse Oximetry Body Mass Index 33.7 Labs Results: 07/10/20 08:08 06/19/20 16:16 Labs: Laboratory Results - last 48 hr 07/10/20 07/10/20 08:08 08:08 WBC 7.1 RBC 4.54 Hgb 13.8 Hct 42.3 MCV 93.2 MCH 30.4 MCHC 32.6 RDW 12.9 Plt Count 347 MPV 10.0 Immature Gran % (Auto) 0.3 Neut % (Auto) 53.4 Lymph % (Auto) 33.9 [place] % (Auto) 9.5 Eos % (Auto) 2.5 Baso % (Auto) 0.4 Lymph # (Auto) 2.4 [place] # (Auto) 0.7 Eos # (Auto) 0.2 Baso # (Auto) 0.0 Abs Immat Gran (auto) 0.02 Absolute Neuts (auto) 3.8 Absolute Nucleated RBC 0.000 Nucleated RBC % (auto) 0.0 Valproic Acid 46.1 L Medications Medications Current Medications Generic Name Dose Route Start Last Admin Trade Name Freq PRN Reason Stop Dose Admin Acetaminophen 650 mg 05/31/20 00:01 07/06/20 15:08 Acetaminophen 325 Mg Tablet PO 650 mg Q6H PRN Administration Pain, Mild (Pain Scale 1-3) Al Hydroxide/Mg Hydroxide 30 ml 05/31/20 00:01 06/29/20 04:02 Magnesium Hydrox/Alum Hydrox 30 Ml Oral.Susp PO 30 ml Q6H PRN Administration Heartburn/nausea Benztropine Mesylate 1 mg 06/30/20 13:09 07/08/20 22:30 Benztropine Mesylate 1 Mg Tablet PO 1 mg TID PRN Administration Extrapyramidal Effects Clozapine 200 mg 07/10/20 18:00 07/10/20 17:58 Clozapine 100 Mg Tablet PO 200 mg DAILY@1800 [facility] Administration Diazepam 2 mg 06/30/20 15:00 07/10/20 14:23 Diazepam 2 Mg Tablet PO 2 mg TID [facility] Administration Diazepam 5 mg 07/10/20 12:26 Diazepam 10 Mg Tablet PO BID PRN Anxiety Divalproex Sodium 750 mg 07/10/20 18:00 07/10/20 17:58 Divalproex Sodium Er 250 Mg Tab.Er.24h PO 750 mg DAILY@1800 [facility] Administration Ergocalciferol 1,250 mcg 07/10/20 12:30 Ergocalciferol (Vitamin D2) 1,250 Mcg Capsule PO Q7D [facility] Haloperidol 5 mg 06/30/20 17:11 07/01/20 09:07 Haloperidol 5 Mg Tablet PO 5 mg Q4H PRN Administration psychotic agitation Haloperidol 2 mg 07/10/20 08:30 07/10/20 09:14 Haloperidol 1 Mg Tablet PO 2 mg BID@0830,2030 [facility] Administration Hydroxyzine HCl 25 mg 05/31/20 21:00 07/01/20 01:28 EST Hydroxyzine Hcl 25 Mg Tablet PO 25 mg BEDTIME MRX1 PRN Administration NIGHT TIME ANXIETY Hydroxyzine HCl 50 mg 06/30/20 17:12 06/30/20 17:41 Hydroxyzine Hcl 50 Mg Tablet PO 50 mg Q6H PRN Administration agitation Levothyroxine Sodium 100 mcg 05/31/20 06:30 07/10/20 06:57 Levothyroxine Sodium 100 Mcg Tablet PO 100 mcg DAILY@0630 [facility] Administration Magnesium Hydroxide 30 ml 05/31/20 00:01 Milk Of Magnesia 30 Ml Oral.Susp PO Q24H PRN Constipation Nicotine Polacrilex 2 mg 05/31/20 00:01 Nicotine Polacrilex 2 Mg Gum BUCCAL Q2H PRN Nicotine Cravings Oxybutynin Chloride 10 mg 05/31/20 09:00 07/10/20 09:10 Oxybutynin Chloride Er 5 Mg Tab.Er.24 PO 10 mg DAILY [place] Administration Propranolol HCl 20 mg 06/02/20 21:00 07/10/20 12:51 Propranolol Hcl 10 Mg Tablet PO 20 mg TID@0830,1330,2100 [place] Administration Protocol Quetiapine Fumarate 50 mg 05/31/20 00:01 07/01/20 02:36 Quetiapine Fumarate 50 Mg Tablet PO 50 mg Q4H PRN Administration anxiety/restlessness Trazodone HCl 50 mg 06/01/20 11:41 06/30/20 23:54 Trazodone Hcl 50 Mg Tablet PO 50 mg BEDTIME PRN Administration Insomnia Allergies Allergies Allergy/AdvReac Type Severity Reaction Status Date / Time No Known Allergies Allergy Unverified 05/17/20 19:50 [No Known Allergies*] Assessment & Plan Assessment & Plan (1) OCD (obsessive compulsive disorder): Qualifiers: Obsessive-compulsive disorder type: mixed obsessional thoughts and acts Qualified Code(s): F42.2 - Mixed obsessional thoughts and acts Status: Acute Code(s): F42.9 - Obsessive-compulsive disorder, unspecified (2) Bipolar 1 disorder, mixed: Status: Acute Code(s): F31.60 - Bipolar disorder, current episode mixed, unspecified Assessment and Plan: CT current treatment plan depakote clozaril stop valium change clozapine and Depakote to earlier in the evening to decrease sedation discontinue Haldol Greater than 50% of the session was spent on counseling and/or coordination of care Patient educated on: medication risk/benefits and therapeutic strategies Reason for contiued inpatient stay Substantial Risk for: rapid decompensation
[2020-07-10] MEDS: Ergocalciferol (Vitamin D2) 1,250 MCG CAPSULE 1250 MCG PO (22:51)
[2020-07-10 22:52] VITALS: BP 118/82; PULSE 105
[2020-07-11 05:35] VITALS: BP 130/81; PULSE 94; RESP 18; TEMP 36; O2SAT 100
[2020-07-11 05:59] VITALS: BP 130/81; PULSE 94; RESP 18; TEMP 36; O2SAT 100
[2020-07-11 09:16] VITALS: BP 130/81; PULSE 94
[2020-07-11] MEDS: HaloperidoL 1 MG TABLET 2 MG PO ×2 (09:16→22:19)
[2020-07-11] MEDS: Levothyroxine Sodium 100 MCG TABLET PO (09:16)
[2020-07-11] MEDS: Benztropine Mesylate 1 MG TABLET PO ×2 (09:16→22:23)
[2020-07-11] MEDS: Propranolol HCL 10 MG TABLET 20 MG PO ×3 (09:16→22:18)
[2020-07-11] MEDS: diazePAM 2 MG TABLET PO (09:17)
[2020-07-11 13:16] VITALS: PULSE 80
[2020-07-11] MEDS: Divalproex Sodium ER 250 MG TAB.ER.24H 750 MG PO (19:08)
[2020-07-11] MEDS: cloZAPine 100 MG TABLET 200 MG PO (19:08)
[2020-07-11 22:18] VITALS: BP 129/75; PULSE 63
[2020-07-12 06:07] VITALS: BP 122/64; PULSE 75; RESP 18; TEMP 36.4; O2SAT 98
[2020-07-12] MEDS: Levothyroxine Sodium 100 MCG TABLET PO (06:19)
[2020-07-12 08:38] VITALS: BP 122/64; PULSE 75
[2020-07-12] MEDS: Propranolol HCL 10 MG TABLET 20 MG PO ×3 (08:38→21:40)
[2020-07-12] MEDS: HaloperidoL 1 MG TABLET 2 MG PO ×2 (08:39→21:39)
[2020-07-12 10:07] VITALS: BMI 32.6
[2020-07-12 13:36] VITALS: PULSE 98
[2020-07-12 21:40] VITALS: BP 122/85; PULSE 101
[2020-07-12] MEDS: Divalproex Sodium ER 250 MG TAB.ER.24H 750 MG PO (21:40)
[2020-07-12] MEDS: cloZAPine 100 MG TABLET 200 MG PO (21:40)
[2020-07-12] MEDS: lamoTRIgine 25 MG TABLET PO (21:40)
--- NOTE | 2020-07-12 23:32 | HO.PSYCHPN ---
Subjective Subjective Reason For Visit: severe mood lability Interim History: SHE REMAINS ANXIOUS ABOUT DISCHARGE continues to worry a obsessional a about basic functioning what clothes to wear etc. Needs much reassurance Mental Status Exam Mental Status Exam Narrative: Has worries regarding her cousin mood flat Patient Appearance: Disheveled Patient Orientation: Person, Place, Time and Situation Level of Consciousness: Awake and Appropriate Patient Behavior: Cooperative and Anxious Mood Description: Calm and Fearful (of losing control again) Affect Description: Labile Patient Cognition Impaired: No Ability to Follow Directions: Fair Speech Pattern: Clear and Perseverating Memory Description: Episodic Impaired and Working Impaired Diagnostics Vital Signs (24Hr): Vital Signs - 24 hr 07/12/20 06:07 07/12/20 08:38 07/12/20 13:36 Temperature 97.6 F Pulse Rate 75 75 98 Respiratory Rate 18 Blood Pressure 122/64 122/64 Pulse Oximetry 98 07/12/20 21:40 Temperature Pulse Rate 101 H Respiratory Rate Blood Pressure 122/85 Pulse Oximetry Body Mass Index 32.6 Labs Results: 07/10/20 08:08 06/19/20 16:16 Medications Medications Current Medications Generic Name Dose Route Start Last Admin Trade Name Freq PRN Reason Stop Dose Admin Acetaminophen 650 mg 05/31/20 00:01 07/06/20 15:08 Acetaminophen 325 Mg Tablet PO 650 mg Q6H PRN Administration Pain, Mild (Pain Scale 1-3) Al Hydroxide/Mg Hydroxide 30 ml 05/31/20 00:01 06/29/20 04:02 Magnesium Hydrox/Alum Hydrox 30 Ml Oral.Susp PO 30 ml Q6H PRN Administration Heartburn/nausea Benztropine Mesylate 1 mg 06/30/20 13:09 07/11/20 22:23 Benztropine Mesylate 1 Mg Tablet PO 1 mg TID PRN Administration Extrapyramidal Effects Clozapine 200 mg 07/10/20 18:00 07/12/20 21:40 Clozapine 100 Mg Tablet PO 200 mg DAILY@1800 [facility] Administration Diazepam 2 mg 07/11/20 10:43 Diazepam 2 Mg Tablet PO BID PRN Anxiety Divalproex Sodium 750 mg 07/10/20 18:00 07/12/20 21:40 Divalproex Sodium Er 250 Mg Tab.Er.24h PO 750 mg DAILY@1800 [place] Administration Ergocalciferol 1,250 mcg 07/10/20 22:15 07/10/20 22:51 Ergocalciferol (Vitamin D2) 1,250 Mcg Capsule PO 1,250 mcg Q7D [place] Administration Haloperidol 2 mg 07/10/20 08:30 07/12/20 21:39 Haloperidol 1 Mg Tablet PO 2 mg BID@0830,2030 [place] Administration Haloperidol 1 mg 07/11/20 10:29 Haloperidol 1 Mg Tablet PO Q4H PRN psychotic agitation Hydroxyzine HCl 25 mg 05/31/20 21:00 07/01/20 01:28 EST Hydroxyzine Hcl 25 Mg Tablet PO 25 mg BEDTIME MRX1 PRN Administration NIGHT TIME ANXIETY Hydroxyzine HCl 50 mg 06/30/20 17:12 06/30/20 17:41 Hydroxyzine Hcl 50 Mg Tablet PO 50 mg Q6H PRN Administration agitation Lamotrigine 25 mg 07/12/20 21:00 07/12/20 21:40 Lamotrigine 25 Mg Tablet PO 25 mg BEDTIME [place] Administration Levothyroxine Sodium 100 mcg 05/31/20 06:30 07/12/20 06:19 Levothyroxine Sodium 100 Mcg Tablet PO 100 mcg DAILY@0630 [facility] Administration Magnesium Hydroxide 30 ml 05/31/20 00:01 Milk Of Magnesia 30 Ml Oral.Susp PO Q24H PRN Constipation Nicotine Polacrilex 2 mg 05/31/20 00:01 Nicotine Polacrilex 2 Mg Gum BUCCAL Q2H PRN Nicotine Cravings Oxybutynin Chloride 10 mg 05/31/20 09:00 07/12/20 08:39 Oxybutynin Chloride Er 5 Mg Tab.Er.24 PO 10 mg DAILY [place] Administration Propranolol HCl 20 mg 06/02/20 21:00 07/12/20 21:40 Propranolol Hcl 10 Mg Tablet PO 20 mg TID@0830,1330,2100 [facility] Administration Protocol Quetiapine Fumarate 50 mg 05/31/20 00:01 07/01/20 02:36 Quetiapine Fumarate 50 Mg Tablet PO 50 mg Q4H PRN Administration anxiety/restlessness Trazodone HCl 50 mg 06/01/20 11:41 06/30/20 23:54 Trazodone Hcl 50 Mg Tablet PO 50 mg BEDTIME PRN Administration Insomnia Allergies Allergies Allergy/AdvReac Type Severity Reaction Status Date / Time No Known Allergies Allergy Unverified 05/17/20 19:50 [No Known Allergies*] Assessment & Plan Assessment & Plan (1) OCD (obsessive compulsive disorder): Qualifiers: Obsessive-compulsive disorder type: mixed obsessional thoughts and acts Qualified Code(s): F42.2 - Mixed obsessional thoughts and acts Status: Acute Code(s): F42.9 - Obsessive-compulsive disorder, unspecified (2) Bipolar 1 disorder, mixed: Status: Acute Code(s): F31.60 - Bipolar disorder, current episode mixed, unspecified Assessment and Plan: patient anxious and ruminating but mood much more stable obsessional anxiety unfortunately continues has not done well with antidepressants Greater than 50% of the session was spent on counseling and/or coordination of care
[2020-07-13 06:10] VITALS: BP 109/60; PULSE 76; RESP 20; TEMP 35.8; O2SAT 97
[2020-07-13] MEDS: Levothyroxine Sodium 100 MCG TABLET PO (06:36)
[2020-07-13 09:55] VITALS: BP 109/60; PULSE 76
[2020-07-13] MEDS: Propranolol HCL 10 MG TABLET 20 MG PO ×3 (09:55→20:31)
[2020-07-13] MEDS: HaloperidoL 1 MG TABLET 2 MG PO ×2 (09:55→20:33)
[2020-07-13 14:28] VITALS: BP 113/70; PULSE 90
[2020-07-13] MEDS: Divalproex Sodium ER 250 MG TAB.ER.24H 750 MG PO (18:52)
[2020-07-13] MEDS: cloZAPine 100 MG TABLET 200 MG PO (18:53)
[2020-07-13 20:31] VITALS: BP 122/81; PULSE 104
[2020-07-13] MEDS: lamoTRIgine 25 MG TABLET PO (20:33)
[2020-07-13 21:17] VITALS: BP 122/81; PULSE 104; TEMP 36.5
--- NOTE | 2020-07-13 22:39 | HO.PSYCHPN ---
Subjective Subjective Reason For Visit: severe mood lability Subjective Notes: Conditional Voluntary Interim History: patient continues with intrusive anxiety worried about discharge no suicidal thoughts not manic not aggressive mood much calmer social and engaged Medication Compliance: Yes Attending Groups: Intermittent Mental Status Exam Mental Status Exam Narrative: Has worries regarding her cousin mood flat Patient Appearance: Disheveled Patient Orientation: Person, Place, Time and Situation Level of Consciousness: Awake and Appropriate Patient Behavior: Cooperative and Anxious Mood Description: Calm and Fearful (of losing control again) Affect Description: Labile Patient Cognition Impaired: No Ability to Follow Directions: Fair Speech Pattern: Clear and Perseverating Memory Description: Episodic Impaired and Working Impaired Diagnostics Vital Signs (24Hr): Vital Signs - 24 hr 07/13/20 06:10 07/13/20 09:55 07/13/20 14:28 Temperature 96.4 F L Pulse Rate 76 76 90 Respiratory Rate 20 Blood Pressure 109/60 109/60 113/70 Pulse Oximetry 97 07/13/20 20:31 07/13/20 21:17 Temperature 97.7 F Pulse Rate 104 H 104 H Respiratory Rate Blood Pressure 122/81 122/81 Pulse Oximetry Body Mass Index 32.6 Labs Results: 07/10/20 08:08 06/19/20 16:16 Medications Medications Current Medications Generic Name Dose Route Start Last Admin Trade Name Freq PRN Reason Stop Dose Admin Acetaminophen 650 mg 05/31/20 00:01 07/06/20 15:08 Acetaminophen 325 Mg Tablet PO 650 mg Q6H PRN Administration Pain, Mild (Pain Scale 1-3) Al Hydroxide/Mg Hydroxide 30 ml 05/31/20 00:01 06/29/20 04:02 Magnesium Hydrox/Alum Hydrox 30 Ml Oral.Susp PO 30 ml Q6H PRN Administration Heartburn/nausea Benztropine Mesylate 1 mg 06/30/20 13:09 07/11/20 22:23 Benztropine Mesylate 1 Mg Tablet PO 1 mg TID PRN Administration Extrapyramidal Effects Clozapine 200 mg 07/10/20 18:00 07/13/20 18:53 Clozapine 100 Mg Tablet PO 200 mg DAILY@1800 [place] Administration Diazepam 2 mg 07/11/20 10:43 Diazepam 2 Mg Tablet PO BID PRN Anxiety Divalproex Sodium 750 mg 07/10/20 18:00 07/13/20 18:52 Divalproex Sodium Er 250 Mg Tab.Er.24h PO 750 mg DAILY@1800 [place] Administration Ergocalciferol 1,250 mcg 07/10/20 22:15 07/10/20 22:51 Ergocalciferol (Vitamin D2) 1,250 Mcg Capsule PO 1,250 mcg Q7D [place] Administration Haloperidol 2 mg 07/10/20 08:30 07/13/20 20:33 Haloperidol 1 Mg Tablet PO 2 mg BID@0830,2030 [place] Administration Haloperidol 1 mg 07/11/20 10:29 Haloperidol 1 Mg Tablet PO Q4H PRN psychotic agitation Hydroxyzine HCl 25 mg 05/31/20 21:00 07/01/20 01:28 EST Hydroxyzine Hcl 25 Mg Tablet PO 25 mg BEDTIME MRX1 PRN Administration NIGHT TIME ANXIETY Hydroxyzine HCl 50 mg 06/30/20 17:12 06/30/20 17:41 Hydroxyzine Hcl 50 Mg Tablet PO 50 mg Q6H PRN Administration agitation Lamotrigine 25 mg 07/12/20 21:00 07/13/20 20:33 Lamotrigine 25 Mg Tablet PO 25 mg BEDTIME [place] Administration Levothyroxine Sodium 100 mcg 05/31/20 06:30 07/13/20 06:36 Levothyroxine Sodium 100 Mcg Tablet PO 100 mcg DAILY@0630 [facility] Administration Magnesium Hydroxide 30 ml 05/31/20 00:01 Milk Of Magnesia 30 Ml Oral.Susp PO Q24H PRN Constipation Nicotine Polacrilex 2 mg 05/31/20 00:01 Nicotine Polacrilex 2 Mg Gum BUCCAL Q2H PRN Nicotine Cravings Oxybutynin Chloride 10 mg 05/31/20 09:00 07/13/20 09:54 Oxybutynin Chloride Er 5 Mg Tab.Er.24 PO 10 mg DAILY [place] Administration Propranolol HCl 20 mg 06/02/20 21:00 07/13/20 20:31 Propranolol Hcl 10 Mg Tablet PO 20 mg TID@0830,1330,2100 [facility] Administration Protocol Quetiapine Fumarate 50 mg 05/31/20 00:01 07/01/20 02:36 Quetiapine Fumarate 50 Mg Tablet PO 50 mg Q4H PRN Administration anxiety/restlessness Trazodone HCl 50 mg 06/01/20 11:41 06/30/20 23:54 Trazodone Hcl 50 Mg Tablet PO 50 mg BEDTIME PRN Administration Insomnia Allergies Allergies Allergy/AdvReac Type Severity Reaction Status Date / Time No Known Allergies Allergy Unverified 05/17/20 19:50 [No Known Allergies*] Assessment & Plan Assessment & Plan (1) OCD (obsessive compulsive disorder): Qualifiers: Obsessive-compulsive disorder type: mixed obsessional thoughts and acts Qualified Code(s): F42.2 - Mixed obsessional thoughts and acts Status: Acute Code(s): F42.9 - Obsessive-compulsive disorder, unspecified (2) Bipolar 1 disorder, mixed: Status: Acute Code(s): F31.60 - Bipolar disorder, current episode mixed, unspecified Assessment and Plan: continue present treatment plan discharge planning Education regarding cognitive behavioral strategies Greater than 50% of the session was spent on counseling and/or coordination of care Patient educated on: diagnosis and medication risk/benefits
[2020-07-14 06:30] VITALS: BP 105/61; PULSE 66; RESP 20; TEMP 36.3
[2020-07-14] MEDS: Levothyroxine Sodium 100 MCG TABLET PO (06:33)
[2020-07-14] MEDS: HaloperidoL 1 MG TABLET 2 MG PO ×2 (08:52→20:44)
[2020-07-14] MEDS: Propranolol HCL 10 MG TABLET 20 MG PO ×3 (08:52→20:44)
--- NOTE | 2020-07-14 11:42 | HO.PSYCHPN ---
Subjective Subjective Reason For Visit: severe mood lability Interim History: patient continues with intrusive anxiety worried about discharge no suicidal thoughts not manic not aggressive mood much calmer and less labile. Mental Status Exam Mental Status Exam Narrative: Has worries regarding her cousin mood flat Patient Appearance: Disheveled Patient Orientation: Person, Place, Time and Situation Level of Consciousness: Awake and Appropriate Patient Behavior: Cooperative and Anxious Mood Description: Calm and Fearful (of losing control again) Affect Description: Labile Patient Cognition Impaired: No Ability to Follow Directions: Fair Speech Pattern: Clear and Perseverating Memory Description: Episodic Impaired and Working Impaired Diagnostics Vital Signs (24Hr): Vital Signs - 24 hr 07/13/20 14:28 07/13/20 20:31 07/13/20 21:17 Temperature 97.7 F Pulse Rate 90 104 H 104 H Respiratory Rate Blood Pressure 113/70 122/81 122/81 07/14/20 06:30 Temperature 97.3 F Pulse Rate 66 Respiratory Rate 20 Blood Pressure 105/61 Body Mass Index 32.6 Labs Results: 07/10/20 08:08 06/19/20 16:16 Medications Medications Current Medications Generic Name Dose Route Start Last Admin Trade Name Freq PRN Reason Stop Dose Admin Acetaminophen 650 mg 05/31/20 00:01 07/06/20 15:08 Acetaminophen 325 Mg Tablet PO 650 mg Q6H PRN Administration Pain, Mild (Pain Scale 1-3) Al Hydroxide/Mg Hydroxide 30 ml 05/31/20 00:01 06/29/20 04:02 Magnesium Hydrox/Alum Hydrox 30 Ml Oral.Susp PO 30 ml Q6H PRN Administration Heartburn/nausea Benztropine Mesylate 1 mg 06/30/20 13:09 07/11/20 22:23 Benztropine Mesylate 1 Mg Tablet PO 1 mg TID PRN Administration Extrapyramidal Effects Clozapine 200 mg 07/10/20 18:00 07/13/20 18:53 Clozapine 100 Mg Tablet PO 200 mg DAILY@1800 [facility] Administration Diazepam 2 mg 07/11/20 10:43 Diazepam 2 Mg Tablet PO BID PRN Anxiety Divalproex Sodium 750 mg 07/10/20 18:00 07/13/20 18:52 Divalproex Sodium Er 250 Mg Tab.Er.24h PO 750 mg DAILY@1800 [facility] Administration Ergocalciferol 1,250 mcg 07/10/20 22:15 07/10/20 22:51 Ergocalciferol (Vitamin D2) 1,250 Mcg Capsule PO 1,250 mcg Q7D [place] Administration Haloperidol 2 mg 07/10/20 08:30 07/14/20 08:52 Haloperidol 1 Mg Tablet PO 2 mg BID@0830,2030 [place] Administration Haloperidol 1 mg 07/11/20 10:29 Haloperidol 1 Mg Tablet PO Q4H PRN psychotic agitation Hydroxyzine HCl 25 mg 05/31/20 21:00 07/01/20 01:28 EST Hydroxyzine Hcl 25 Mg Tablet PO 25 mg BEDTIME MRX1 PRN Administration NIGHT TIME ANXIETY Hydroxyzine HCl 50 mg 06/30/20 17:12 06/30/20 17:41 Hydroxyzine Hcl 50 Mg Tablet PO 50 mg Q6H PRN Administration agitation Lamotrigine 25 mg 07/12/20 21:00 07/13/20 20:33 Lamotrigine 25 Mg Tablet PO 25 mg BEDTIME [place] Administration Levothyroxine Sodium 100 mcg 05/31/20 06:30 07/14/20 06:33 Levothyroxine Sodium 100 Mcg Tablet PO 100 mcg DAILY@0630 [facility] Administration Magnesium Hydroxide 30 ml 05/31/20 00:01 Milk Of Magnesia 30 Ml Oral.Susp PO Q24H PRN Constipation Nicotine Polacrilex 2 mg 05/31/20 00:01 Nicotine Polacrilex 2 Mg Gum BUCCAL Q2H PRN Nicotine Cravings Oxybutynin Chloride 10 mg 05/31/20 09:00 07/14/20 08:52 Oxybutynin Chloride Er 5 Mg Tab.Er.24 PO 10 mg DAILY [place] Administration Propranolol HCl 20 mg 06/02/20 21:00 07/14/20 08:52 Propranolol Hcl 10 Mg Tablet PO 20 mg TID@0830,1330,2100 [facility] Administration Protocol Quetiapine Fumarate 50 mg 05/31/20 00:01 07/01/20 02:36 Quetiapine Fumarate 50 Mg Tablet PO 50 mg Q4H PRN Administration anxiety/restlessness Trazodone HCl 50 mg 06/01/20 11:41 06/30/20 23:54 Trazodone Hcl 50 Mg Tablet PO 50 mg BEDTIME PRN Administration Insomnia Allergies Allergies Allergy/AdvReac Type Severity Reaction Status Date / Time No Known Allergies Allergy Unverified 05/17/20 19:50 [No Known Allergies*] Assessment & Plan Assessment & Plan (1) OCD (obsessive compulsive disorder): Qualifiers: Obsessive-compulsive disorder type: mixed obsessional thoughts and acts Qualified Code(s): F42.2 - Mixed obsessional thoughts and acts Status: Acute Code(s): F42.9 - Obsessive-compulsive disorder, unspecified (2) Bipolar 1 disorder, mixed: Status: Acute Code(s): F31.60 - Bipolar disorder, current episode mixed, unspecified Assessment and Plan: continue present treatment plan discharge planning Education regarding cognitive behavioral strategies Greater than 50% of the session was spent on counseling and/or coordination of care
[2020-07-14 13:22] VITALS: BP 130/85; PULSE 108
[2020-07-14] MEDS: Divalproex Sodium ER 250 MG TAB.ER.24H 750 MG PO (19:18)
[2020-07-14] MEDS: cloZAPine 100 MG TABLET 200 MG PO (19:18)
[2020-07-14 20:44] VITALS: BP 104/69; PULSE 92
[2020-07-14] MEDS: Benztropine Mesylate 1 MG TABLET PO (20:44)
[2020-07-14] MEDS: lamoTRIgine 25 MG TABLET PO (20:44)
[2020-07-15] MEDS: Levothyroxine Sodium 100 MCG TABLET PO (06:08)
[2020-07-15 06:10] VITALS: BP 113/60; PULSE 93; RESP 16; TEMP 36.3; O2SAT 98
[2020-07-15] MEDS: HaloperidoL 1 MG TABLET 2 MG PO ×2 (08:55→20:15)
[2020-07-15] MEDS: Propranolol HCL 10 MG TABLET 20 MG PO ×3 (08:55→20:15)
--- NOTE | 2020-07-15 12:05 | HO.PSYCHPN ---
Subjective Subjective Date of Service: 07/15/20 Reason For Visit: severe mood lability Interim History: Dariela key; still anxious but able to calmly articulate and problem solve to engage in coping skill to reduce anxiety Medication Compliance: Yes Side effects from medications: No Attending Groups: Intermittent Review of Systems Review of Systems no changes Mental Status Exam Mental Status Exam Narrative: Has worries regarding her cousin mood flat Patient Appearance: Disheveled Patient Orientation: Person, Place, Time and Situation Level of Consciousness: Awake and Appropriate Patient Behavior: Cooperative and Anxious Mood Description: Calm and Fearful (of losing control again) Affect Description: Anxious Patient Cognition Impaired: No Ability to Follow Directions: Fair Speech Pattern: Clear, Perseverating (less so) and Coherent Memory Description: Episodic Impaired and Working Impaired Thought Process: Goal Oriented Thought Content: positive for Goal Oriented and positive for Preoccupation Judgement: Good Diagnostics Vital Signs (24Hr): Vital Signs - 24 hr 07/14/20 13:22 07/14/20 20:44 07/15/20 06:10 Temperature 97.4 F Pulse Rate 108 H 92 93 Respiratory Rate 16 Blood Pressure 130/85 104/69 113/60 Pulse Oximetry 98 Body Mass Index 32.6 Labs Results: 07/10/20 08:08 06/19/20 16:16 Medications Medications Current Medications Generic Name Dose Route Start Last Admin Trade Name Freq PRN Reason Stop Dose Admin Acetaminophen 650 mg 05/31/20 00:01 07/06/20 15:08 Acetaminophen 325 Mg Tablet PO 650 mg Q6H PRN Administration Pain, Mild (Pain Scale 1-3) Al Hydroxide/Mg Hydroxide 30 ml 05/31/20 00:01 06/29/20 04:02 Magnesium Hydrox/Alum Hydrox 30 Ml Oral.Susp PO 30 ml Q6H PRN Administration Heartburn/nausea Benztropine Mesylate 1 mg 06/30/20 13:09 07/14/20 20:44 Benztropine Mesylate 1 Mg Tablet PO 1 mg TID PRN Administration Extrapyramidal Effects Clozapine 200 mg 07/10/20 18:00 07/14/20 19:18 Clozapine 100 Mg Tablet PO 200 mg DAILY@1800 [place] Administration Diazepam 2 mg 07/11/20 10:43 Diazepam 2 Mg Tablet PO BID PRN Anxiety Divalproex Sodium 750 mg 07/10/20 18:00 07/14/20 19:18 Divalproex Sodium Er 250 Mg Tab.Er.24h PO 750 mg DAILY@1800 [place] Administration Ergocalciferol 1,250 mcg 07/10/20 22:15 07/10/20 22:51 Ergocalciferol (Vitamin D2) 1,250 Mcg Capsule PO 1,250 mcg Q7D [place] Administration Haloperidol 2 mg 07/10/20 08:30 07/15/20 08:55 Haloperidol 1 Mg Tablet PO 2 mg BID@0830,2030 [place] Administration Haloperidol 1 mg 07/11/20 10:29 Haloperidol 1 Mg Tablet PO Q4H PRN psychotic agitation Hydroxyzine HCl 25 mg 05/31/20 21:00 07/01/20 01:28 EST Hydroxyzine Hcl 25 Mg Tablet PO 25 mg BEDTIME MRX1 PRN Administration NIGHT TIME ANXIETY Hydroxyzine HCl 50 mg 06/30/20 17:12 06/30/20 17:41 Hydroxyzine Hcl 50 Mg Tablet PO 50 mg Q6H PRN Administration agitation Lamotrigine 25 mg 07/12/20 21:00 07/14/20 20:44 Lamotrigine 25 Mg Tablet PO 25 mg BEDTIME [place] Administration Levothyroxine Sodium 100 mcg 05/31/20 06:30 07/15/20 06:08 Levothyroxine Sodium 100 Mcg Tablet PO 100 mcg DAILY@0630 [place] Administration Magnesium Hydroxide 30 ml 05/31/20 00:01 Milk Of Magnesia 30 Ml Oral.Susp PO Q24H PRN Constipation Nicotine Polacrilex 2 mg 05/31/20 00:01 Nicotine Polacrilex 2 Mg Gum BUCCAL Q2H PRN Nicotine Cravings Oxybutynin Chloride 10 mg 05/31/20 09:00 07/15/20 08:55 Oxybutynin Chloride Er 5 Mg Tab.Er.24 PO 10 mg DAILY [place] Administration Propranolol HCl 20 mg 06/02/20 21:00 07/15/20 08:55 Propranolol Hcl 10 Mg Tablet PO 20 mg TID@0830,1330,2100 [place] Administration Protocol Quetiapine Fumarate 50 mg 05/31/20 00:01 07/01/20 02:36 Quetiapine Fumarate 50 Mg Tablet PO 50 mg Q4H PRN Administration anxiety/restlessness Trazodone HCl 50 mg 06/01/20 11:41 06/30/20 23:54 Trazodone Hcl 50 Mg Tablet PO 50 mg BEDTIME PRN Administration Insomnia Allergies Allergies Allergy/AdvReac Type Severity Reaction Status Date / Time No Known Allergies Allergy Unverified 05/17/20 19:50 [No Known Allergies*] Assessment & Plan Assessment & Plan (1) OCD (obsessive compulsive disorder): Qualifiers: Obsessive-compulsive disorder type: mixed obsessional thoughts and acts Qualified Code(s): F42.2 - Mixed obsessional thoughts and acts Status: Acute Code(s): F42.9 - Obsessive-compulsive disorder, unspecified (2) Bipolar 1 disorder, mixed: Status: Acute Code(s): F31.60 - Bipolar disorder, current episode mixed, unspecified Assessment and Plan: continue present treatment plan discharge planning Education regarding cognitive behavioral strategies Greater than 50% of the session was spent on counseling and/or coordination of care Patient educated on: therapeutic strategies Informed Consent: understands and further education needed Reason for contiued inpatient stay Substantial Risk for: inability to function, rapid decompensation and med/psych decompensation
[2020-07-15] MEDS: Divalproex Sodium ER 250 MG TAB.ER.24H 750 MG PO (18:26)
[2020-07-15] MEDS: cloZAPine 100 MG TABLET 200 MG PO (18:26)
[2020-07-15 20:15] VITALS: BP 121/71; PULSE 89
[2020-07-15] MEDS: Benztropine Mesylate 1 MG TABLET PO (20:15)
[2020-07-15] MEDS: lamoTRIgine 25 MG TABLET PO (20:15)
[2020-07-16 06:10] VITALS: BP 114/61; PULSE 91; RESP 22; TEMP 36.2
[2020-07-16] MEDS: Levothyroxine Sodium 100 MCG TABLET PO (06:25)
--- NOTE | 2020-07-16 06:35 | HO.PSYCHPN ---
Subjective Subjective Reason For Visit: severe mood lability Interim History: Dariela key; still anxious but able to calmly articulate and problem solve to engage in coping skill to reduce anxiety . Steady improvement in Sx Mental Status Exam Mental Status Exam Narrative: Has worries regarding her cousin mood flat Patient Appearance: Disheveled Patient Orientation: Person, Place, Time and Situation Level of Consciousness: Awake and Appropriate Patient Behavior: Cooperative and Anxious Mood Description: Calm and Fearful (of losing control again) Affect Description: Anxious Patient Cognition Impaired: No Ability to Follow Directions: Fair Speech Pattern: Clear, Perseverating (less so) and Coherent Memory Description: Episodic Impaired and Working Impaired Diagnostics Vital Signs (24Hr): Vital Signs - 24 hr 07/15/20 20:15 Pulse Rate 89 Blood Pressure 121/71 Body Mass Index 32.6 Labs Results: 07/10/20 08:08 06/19/20 16:16 Medications Medications Current Medications Generic Name Dose Route Start Last Admin Trade Name Freq PRN Reason Stop Dose Admin Acetaminophen 650 mg 05/31/20 00:01 07/06/20 15:08 Acetaminophen 325 Mg Tablet PO 650 mg Q6H PRN Administration Pain, Mild (Pain Scale 1-3) Al Hydroxide/Mg Hydroxide 30 ml 05/31/20 00:01 06/29/20 04:02 Magnesium Hydrox/Alum Hydrox 30 Ml Oral.Susp PO 30 ml Q6H PRN Administration Heartburn/nausea Benztropine Mesylate 1 mg 06/30/20 13:09 07/15/20 20:15 Benztropine Mesylate 1 Mg Tablet PO 1 mg TID PRN Administration Extrapyramidal Effects Clozapine 200 mg 07/10/20 18:00 07/15/20 18:26 Clozapine 100 Mg Tablet PO 200 mg DAILY@1800 [place] Administration Diazepam 2 mg 07/11/20 10:43 Diazepam 2 Mg Tablet PO BID PRN Anxiety Divalproex Sodium 750 mg 07/10/20 18:00 07/15/20 18:26 Divalproex Sodium Er 250 Mg Tab.Er.24h PO 750 mg DAILY@1800 [place] Administration Ergocalciferol 1,250 mcg 07/10/20 22:15 07/10/20 22:51 Ergocalciferol (Vitamin D2) 1,250 Mcg Capsule PO 1,250 mcg Q7D [place] Administration Haloperidol 2 mg 07/10/20 08:30 07/15/20 20:15 Haloperidol 1 Mg Tablet PO 2 mg BID@0830,2030 [place] Administration Haloperidol 1 mg 07/11/20 10:29 Haloperidol 1 Mg Tablet PO Q4H PRN psychotic agitation Hydroxyzine HCl 25 mg 05/31/20 21:00 07/01/20 01:28 EST Hydroxyzine Hcl 25 Mg Tablet PO 25 mg BEDTIME MRX1 PRN Administration NIGHT TIME ANXIETY Hydroxyzine HCl 50 mg 06/30/20 17:12 06/30/20 17:41 Hydroxyzine Hcl 50 Mg Tablet PO 50 mg Q6H PRN Administration agitation Lamotrigine 25 mg 07/12/20 21:00 07/15/20 20:15 Lamotrigine 25 Mg Tablet PO 25 mg BEDTIME [place] Administration Levothyroxine Sodium 100 mcg 05/31/20 06:30 07/16/20 06:25 Levothyroxine Sodium 100 Mcg Tablet PO 100 mcg DAILY@0630 [place] Administration Magnesium Hydroxide 30 ml 05/31/20 00:01 Milk Of Magnesia 30 Ml Oral.Susp PO Q24H PRN Constipation Nicotine Polacrilex 2 mg 05/31/20 00:01 Nicotine Polacrilex 2 Mg Gum BUCCAL Q2H PRN Nicotine Cravings Oxybutynin Chloride 10 mg 05/31/20 09:00 07/15/20 08:55 Oxybutynin Chloride Er 5 Mg Tab.Er.24 PO 10 mg DAILY [place] Administration Propranolol HCl 20 mg 06/02/20 21:00 07/15/20 20:15 Propranolol Hcl 10 Mg Tablet PO 20 mg TID@0830,1330,2100 [place] Administration Protocol Quetiapine Fumarate 50 mg 05/31/20 00:01 07/01/20 02:36 Quetiapine Fumarate 50 Mg Tablet PO 50 mg Q4H PRN Administration anxiety/restlessness Trazodone HCl 50 mg 06/01/20 11:41 06/30/20 23:54 Trazodone Hcl 50 Mg Tablet PO 50 mg BEDTIME PRN Administration Insomnia Allergies Allergies Allergy/AdvReac Type Severity Reaction Status Date / Time No Known Allergies Allergy Unverified 05/17/20 19:50 [No Known Allergies*] Assessment & Plan Assessment & Plan (1) OCD (obsessive compulsive disorder): Qualifiers: Obsessive-compulsive disorder type: mixed obsessional thoughts and acts Qualified Code(s): F42.2 - Mixed obsessional thoughts and acts Status: Acute Code(s): F42.9 - Obsessive-compulsive disorder, unspecified (2) Bipolar 1 disorder, mixed: Status: Acute Code(s): F31.60 - Bipolar disorder, current episode mixed, unspecified Assessment and Plan: continue present treatment plan discharge planning Education regarding cognitive behavioral strategies Greater than 50% of the session was spent on counseling and/or coordination of care
[2020-07-16] MEDS: HaloperidoL 1 MG TABLET 2 MG PO ×2 (08:35→20:10)
[2020-07-16 08:36] VITALS: BP 114/61; PULSE 91
[2020-07-16] MEDS: Propranolol HCL 10 MG TABLET 20 MG PO ×3 (08:36→20:11)
[2020-07-16 13:50] VITALS: PULSE 108
[2020-07-16] MEDS: Divalproex Sodium ER 250 MG TAB.ER.24H 750 MG PO (18:14)
[2020-07-16] MEDS: cloZAPine 100 MG TABLET 200 MG PO (18:15)
[2020-07-16] MEDS: Benztropine Mesylate 1 MG TABLET PO (20:10)
[2020-07-16 20:11] VITALS: BP 106/56; PULSE 79
[2020-07-16] MEDS: lamoTRIgine 25 MG TABLET PO (20:11)
[2020-07-17] MEDS: Levothyroxine Sodium 100 MCG TABLET PO (06:35)
[2020-07-17] MEDS: HaloperidoL 1 MG TABLET 2 MG PO (08:49)
[2020-07-17 08:52] VITALS: BP 116/84; PULSE 96
[2020-07-17] MEDS: Propranolol HCL 10 MG TABLET 20 MG PO ×2 (08:52→14:05)
[2020-07-17 08:57] VITALS: BP 116/84; PULSE 96; O2SAT 98
[2020-07-17 10:35] LABS: Neut%MD 62.9 %; Neutrophils Absolute Auto 5.5 X10*3/uL (2.0-8.3); WBCANC 8.8 X10*3/uL
[2020-07-17 13:52] LABS: MANUAL DIFF FLAG NO
[2020-07-17 13:54] LABS: Basophils Percent Auto 0.3 % (0-2); Hemoglobin 13.3 g/dl (12.0-16.0); Imm Gran Abs Auto 0.04 X10*3/uL (0.00-0.03); Imm Gran Pct Auto 0.4 % (0.0-0.4); Lymphocytes Percent Auto 22.2 % (20-40); Mean Corpuscular HGB Conc 33.3 g/dl (31.0-35.0); Mean Corpuscular Hemoglobin 30.6 pg (27.0-33.0); Mean Platelet Volume 10.9 fL (9.4-12.3); Monocytes Percent Auto 10.9 % (2-11); Neutrophils Percent Auto 66.2 % (45-73); Platelet Count 338 X10*3/uL (160-400); Red Blood Count 4.35 X10*6/uL (4.20-5.50); Red Cell Distribution Width 12.5 % (11.0-16.0); White Blood Count 9.1 X10*3/uL (4.8-10.8)
[2020-07-17 14:01] VITALS: BP 117/72; PULSE 96
[2020-07-17 14:05] VITALS: BP 117/72; PULSE 96
== END 2020-07-17 16:05 | disposition home or self-care (01) | DRG 753 ==
PROVIDERS: Psychiatry & Neurology Psychiatry; Admitting Provider Psychiatry & Neurology Psychiatry; Emergency Provider Physician Assistant; PCP Internal Medicine; Visit Provider Psychiatry & Neurology Psychiatry
PROC: GZB4ZZZ Other Electroconvulsive Therapy (ICD-10-PCS; CPT 90870; principal; 2020-06-20 08:00)
PROC: (CPT 90870; principal; 2020-06-22 07:30)
DX: F31.60 Bipolar disorder, current episode mixed, unspecified (principal); R45.851 Suicidal ideations; F42.2 Mixed obsessional thoughts and acts; F17.210 Nicotine dependence, cigarettes, uncomplicated; Z71.6 Tobacco abuse counseling; Z20.828 Contact with and (suspected) exposure to other viral communicable diseases; Z79.890 Hormone replacement therapy; Z79.899 Other long term (current) drug therapy
CPT/HCPCS: 36415; 70450; 80053; 80159; 80164; 80307; 82607; 82746; 84439; 84443; 85025; 85048; 87389; 87635; 90870; 93005; 95816; 99232; 99233; 99239; 99285; J0330; J1885; J2250; J2405

== ENCOUNTER 2020-07-23 09:24 | Outpatient (REF) | payer MEDICAID, SELFPAY ==
[2020-07-23 10:52] LABS: MANUAL DIFF FLAG NO
[2020-07-23 11:03] LABS: Basophils Percent Auto 0.4 % (0-2); Eosinophils Absolute Auto 0.1 X10*3/uL (0.0-0.4); Eosinophils Percent Auto 1.3 % (0-4); Hematocrit 41.2 % (37-47); Hemoglobin 13.5 g/dl (12.0-16.0); Lymphocytes Absolute Auto 2.1 X10*3/uL (1.2-4.9); Lymphocytes Percent Auto 20.2 % (20-40); Mean Corpuscular HGB Conc 32.8 g/dl (31.0-35.0); Mean Corpuscular Hemoglobin 29.9 pg (27.0-33.0); Mean Corpuscular Volume 91.4 fL (80-98); Mean Platelet Volume 10.5 fL (9.4-12.3); Monocytes Absolute Auto 1.1 X10*3/uL (0.1-1.2); Neutrophils Absolute Auto 6.8 X10*3/uL (2.0-8.3); Neutrophils Percent Auto 66.1 % (45-73); Platelet Count 390 X10*3/uL (160-400); Red Blood Count 4.51 X10*6/uL (4.20-5.50); Red Cell Distribution Width 12.4 % (11.0-16.0); White Blood Count 10.2 X10*3/uL (4.8-10.8)
[2020-07-23 11:22] LABS: Alanine Aminotransferase 13 U/L (0-31); Albumin Level 3.9 g/dL (3.5-5.0); Alkaline Phosphatase 67 U/L (39-117); Anion Gap 15 (12-20); Aspartate Amino Transferase 13 U/L (5-31); Bilirubin Total 0.2 mg/dL (0.0-1.0); Blood Urea Nitrogen 10 mg/dL (9-16); Carbon Dioxide 23 mmol/L (22-29); Chloride 105 mmol/L (96-108); Estimated Glomerular Filt Rate > 60; Glucose Random 97 mg/dL (60-115); Potassium 4.6 mmol/l (3.3-5.1); Sodium 138 mmol/L (135-145); Total Protein 6.9 g/dL (6.5-8.0)
[2020-07-23 11:27] LABS: Valproate 17.6 mcg/mL (50.0-100.0)
[2020-07-23 11:46] LABS: Thyroid Stimulating Hormone 0.49 uIU/mL (0.32-4.0)
== END 2020-07-23 09:25 | disposition home or self-care (01) ==
LOC: HO.LAB 09:24
PROVIDERS: PCP Internal Medicine; Visit Provider Psychiatry & Neurology Psychiatry
DX: F31.60 Bipolar disorder, current episode mixed, unspecified (principal); Z51.81 Encounter for therapeutic drug level monitoring; E03.9 Hypothyroidism, unspecified
CPT/HCPCS: 36415; 80053; 80164; 84443; 85025

== ENCOUNTER 2020-07-30 09:13 | Outpatient (REF) | payer MEDICAID, SELFPAY ==
[2020-07-30 10:16] LABS: MANUAL DIFF FLAG NO
[2020-07-30 10:17] LABS: Basophils Percent Auto 0.2 % (0-2); Hematocrit 38.9 % (37-47); Hemoglobin 13.1 g/dl (12.0-16.0); Imm Gran Abs Auto 0.05 X10*3/uL (0.00-0.03); Imm Gran Pct Auto 0.4 % (0.0-0.4); Lymphocytes Absolute Auto 2.2 X10*3/uL (1.2-4.9); Lymphocytes Percent Auto 17.4 % (20-40); Mean Corpuscular HGB Conc 33.7 g/dl (31.0-35.0); Mean Corpuscular Hemoglobin 30.5 pg (27.0-33.0); Mean Corpuscular Volume 90.7 fL (80-98); Monocytes Absolute Auto 1.1 X10*3/uL (0.1-1.2); Monocytes Percent Auto 8.8 % (2-11); Neutrophils Absolute Auto 9.2 X10*3/uL (2.0-8.3); Neutrophils Percent Auto 73.2 % (45-73); Platelet Count 333 X10*3/uL (160-400); Red Blood Count 4.29 X10*6/uL (4.20-5.50); Red Cell Distribution Width 12.9 % (11.0-16.0); White Blood Count 12.6 X10*3/uL (4.8-10.8)
[2020-07-30 11:12] LABS: Thyroid Stimulating Hormone 0.97 uIU/mL (0.32-4.0)
== END 2020-07-30 09:14 | disposition home or self-care (01) ==
LOC: HO.LAB 09:13
PROVIDERS: PCP Internal Medicine; Visit Provider Psychiatry & Neurology Psychiatry
DX: F31.60 Bipolar disorder, current episode mixed, unspecified (principal); Z51.81 Encounter for therapeutic drug level monitoring; E03.9 Hypothyroidism, unspecified
CPT/HCPCS: 36415; 84443; 85025

== ENCOUNTER 2020-08-06 09:26 | Outpatient (REF) | payer MEDICAID, SELFPAY ==
[2020-08-06 10:08] LABS: MANUAL DIFF FLAG NO
[2020-08-06 10:09] LABS: Hematocrit 39.7 % (37-47); Hemoglobin 13.2 g/dl (12.0-16.0); Mean Corpuscular HGB Conc 33.2 g/dl (31.0-35.0); Mean Corpuscular Hemoglobin 30.6 pg (27.0-33.0); Mean Corpuscular Volume 91.9 fL (80-98); Red Blood Count 4.32 X10*6/uL (4.20-5.50); Red Cell Distribution Width 12.7 % (11.0-16.0); White Blood Count 8.4 X10*3/uL (4.8-10.8)
[2020-08-06 10:10] LABS: Basophils Percent Auto 0.2 % (0-2); Imm Gran Abs Auto 0.02 X10*3/uL (0.00-0.03); Imm Gran Pct Auto 0.2 % (0.0-0.4); Lymphocytes Absolute Auto 1.9 X10*3/uL (1.2-4.9); Lymphocytes Percent Auto 22.4 % (20-40); Mean Platelet Volume 10.5 fL (9.4-12.3); Monocytes Absolute Auto 0.7 X10*3/uL (0.1-1.2); Monocytes Percent Auto 8.2 % (2-11); Neutrophils Absolute Auto 5.8 X10*3/uL (2.0-8.3); Platelet Count 377 X10*3/uL (160-400)
== END 2020-08-06 09:27 | disposition home or self-care (01) ==
LOC: HO.LABR 09:26
PROVIDERS: PCP Internal Medicine; Visit Provider Psychiatry & Neurology Psychiatry
DX: Z51.81 Encounter for therapeutic drug level monitoring (principal)
CPT/HCPCS: 36415; 85025

== ENCOUNTER 2020-08-13 10:32 | Outpatient (REF) | payer MEDICAID, SELFPAY ==
[2020-08-13 11:12] LABS: MANUAL DIFF FLAG NO
[2020-08-13 11:29] LABS: Basophils Percent Auto 0.3 % (0-2); Hematocrit 40.6 % (37-47); Hemoglobin 13.4 g/dl (12.0-16.0); Imm Gran Abs Auto 0.02 X10*3/uL (0.00-0.03); Imm Gran Pct Auto 0.2 % (0.0-0.4); Lymphocytes Absolute Auto 1.7 X10*3/uL (1.2-4.9); Lymphocytes Percent Auto 19.8 % (20-40); Mean Corpuscular Hemoglobin 30.1 pg (27.0-33.0); Mean Corpuscular Volume 91.2 fL (80-98); Monocytes Absolute Auto 0.7 X10*3/uL (0.1-1.2); Monocytes Percent Auto 7.6 % (2-11); Neutrophils Absolute Auto 6.4 X10*3/uL (2.0-8.3); Neutrophils Percent Auto 72.1 % (45-73); Platelet Count 362 X10*3/uL (160-400); Red Blood Count 4.45 X10*6/uL (4.20-5.50); Red Cell Distribution Width 12.3 % (11.0-16.0); White Blood Count 8.8 X10*3/uL (4.8-10.8)
== END 2020-08-13 10:33 | disposition home or self-care (01) ==
LOC: HO.LABR 10:32
PROVIDERS: PCP Internal Medicine; Visit Provider Psychiatry & Neurology Psychiatry
DX: Z51.81 Encounter for therapeutic drug level monitoring (principal)
CPT/HCPCS: 36415; 85025

== ENCOUNTER 2020-08-13 12:24 | Emergency (ER) | payer MEDICAID, SELFPAY ==
[2020-08-13 12:39] VITALS: BP 121/81; BP 121/95; PULSE 110; PULSE 94; RESP 16; TEMP 36.5; O2SAT 99; BMI 31.8
--- NOTE | 2020-08-13 12:43 | ED_ITS ---
HPI - Psych General Chief Complaint: Psychiatric Symptoms Stated Complaint: SI with Plan Time Seen by Provider: 08/13/20 12:31 Source: patient and EMS Mode of arrival: EMS History of Present Illness HPI Narrative: 44-year-old female with a past medical history of OCD, hypothyroid, bipolar disorder mixed, BIBA for increased anxiety and suicidal ideations.Patient states she wants to /disappear but does not want to kill herself. Denies HI, ETOH / illicit drug use, cough, fever, chills, CP/SOB, abdominal pain, nausea/vomiting MD complaint: suicidal ideation, feels depressed and anxiety Related Data Home Medications Medication Instructions Recorded Confirmed levothyroxine 100 mcg PO DAILY 05/30/20 05/30/20 oxybutynin chloride 10 mg PO DAILY 05/30/20 05/30/20 Previous Rx's Medication Instructions Recorded benztropine 0.5 mg PO TID PRN 30 Days #90 tab 07/17/20 clozapine 200 mg PO DAILY@1800 30 Days #60 07/17/20 tab diazepam [Valium] 2 mg PO BID PRN #60 tab 07/17/20 divalproex 750 mg PO DAILY@1800 30 Days tab 07/17/20 ergocalciferol (vitamin D2) 1,250 mcg PO Q7D 30 Days #5 cap 07/17/20 [Vitamin D2] lamotrigine 25 mg PO BID 60 Days #120 tab 07/17/20 quetiapine 25 mg PO TID PRN 30 Days #90 tab 07/17/20 divalproex [Depakote ER] 750 mg PO DAILY 30 Days #90 tab 07/18/20 Allergies Allergy/AdvReac Type Severity Reaction Status Date / Time bupropion AdvReac Unknown Verified 08/13/20 14:51 divalproex sodium AdvReac Unknown Verified 08/13/20 14:51 [From Depakote] risperidone AdvReac Unknown Verified 08/13/20 14:51 Review of Systems Review of Systems: Constitutional: No Weight loss, No Fever, No Chills Cardiovascular: No Chest Pain, No SOB Respiratory: No Cough, No Sputum,No Dyspnea Gastrointestinal: No Nausea, No Vomiting, No Diarrhea, No Constipation, No Abdominal pain Musculoskeletal: No joint pain, No Myalgias, No Joint Swelling Skin: No Skin Lesions, No rash Psych: + Anxiety/Panic, + Depression, + SI, No HI Yes all other systems are reviewed and are negative [facility] Past Medical History Attestation statement: The following information was validated with the patient. Medical History (Updated 08/13/20 @ 20:29 by JAYSON Ramos) Bipolar 1 disorder, mixed Hypothyroidism OCD (obsessive compulsive disorder) Social History Social History Smoking Status: Never smoker Packs Per Day: 1 Cigarettes Per Day: 20.0 Years Smoked: 15 Second Hand Smoke Exposure: No Use of substances other than those prescribed or required for medical reasons: No Advance Directives: No Advance Directives Information Provided: No Physical Exam Vital Signs: Vital Signs: Last Vital Signs Temp 97.7 F 08/13/20 12:39 Pulse 97 08/13/20 18:00 Resp 16 08/13/20 18:00 BP 103/68 08/13/20 18:00 Pulse Ox 98 08/13/20 18:00 Body Mass Index 31.8 Const: General: cooperative, healthy appearing and anxious Orientation/consciousness: patient oriented x3 Limitations: no limitations HENMT: Head: Yes normal to inspection Ears: hearing grossly normal b ilaterally General nose exam: Normal external nose present Face and sinus: Yes normal facial exam Eyes: General: appearance normal, both eyes and all related structures EOM: EOMs intact bilaterally Neck: Neck: Yes normal visual inspection and Yes no meningeal signs Resp: Effort & Inspection: normal respiratory effort Auscultation: clear to auscultation bilaterally, no rales, no rhonchi and no wheezes Cardio: Rate: regular rate Heart sounds: S1 normal heart sound present and S2 normal heart sound present GI: Inspection: Yes normal to inspection Palpation (GI): Soft to palpation, nontender, no guarding and not rigid Skin: Rashes: no rashes Wounds: no wounds Neuro: General: patient oriented x3 and no meningeal signs Extrem: General: Yes normal to inspection Psych: Appearance: grossly normal Speech and movement: Restless speech present Affect: Anxious affect present Attitude: cooperative Thought content: Depressive thoughts present Course Course Course Narrative: * UA/tox screen negative. Depakote level low * Patient medically cleared for N eval * 2100--ED care transfer to [facility] pending N evaluation MDM - Psych MDM Narrative Medical decision making narrative: 44-year-old female with a past medical history of OCD, hypothyroid, bipolar disorder mixed, BIBA for increased anxiety and suicidal ideations. On exam VSS, NAD, anxious appearing, cooperative. Patient recently had lab work, showing low valproic acid level, will repeat today Plan: Valproate level, BARON, AMY Lab Data Labs: Lab Results 08/13/20 08/13/20 08/13/20 Range/Units 13:13 14:17 19:12 Urine Color YELLOW Urine Appearance CLEAR Urine pH 6.0 (5.0-8.0) Ur Specific [place] 1.010 (1.005-1.025) Urine Protein NEG (NEG-TRACE) MG/DL Urine Glucose (UA) NEG (NEG) MG/DL Urine Ketones NEG (NEG) MG/DL Urine Blood NEG (NEG) Urine Nitrite NEG (NEG) Ur Leukocyte Esterase NEG (NEG) Urine Opiates Screen Not Detected (Not Detect) Ur Barbiturates Screen Not Detected (Not Detect) Valproic Acid < 2.0 L (50.0-100.0) mcg/mL Ur Phencyclidine Scrn Not Detected (Not Detect) Ur Amphetamines Screen Not Detected (Not Detect) U Benzodiazepines Scrn Not Detected (Not Detect) Urine Cocaine Screen Not Detected (Not Detect) U Marijuana (THC) Screen Not Detected (Not Detect) Discharge Plan Discharge Clinical Impression: Acute anxiety, Depression Prescriptions: No Action levothyroxine 100 mcg Tablet 100 mcg PO DAILY RF: 0 oxybutynin chloride 5 mg Tablet 10 mg PO DAILY RF: 0 divalproex 250 mg Tablet Extended Release 24 Hr 750 mg PO DAILY@1800 30 Days RF: 0 benztropine 0.5 mg tablet 0.5 mg PO TID PRN (Reason: Extrapyramidal Effects) 30 Days Qty: 90 RF: 0 clozapine 100 mg Tablet 200 mg PO DAILY@1800 30 Days Qty: 60 RF: 0 lamotrigine 25 mg Tablet 25 mg PO BID 60 Days Qty: 120 RF: 0 ergocalciferol (vitamin D2) [Vitamin D2] 1,250 mcg (50,000 unit) Capsule 1,250 mcg PO Q7D 30 Days Qty: 5 RF: 0 diazepam [Valium] 2 mg tablet 2 mg PO BID PRN (Reason: anxiety) Qty: 60 RF: 0 quetiapine 25 mg tablet 25 mg PO TID PRN (Reason: Anxiety/Restlessness) 30 Days Qty: 90 RF: 0 divalproex [Depakote ER] 250 mg tablet extended release 24 hr 750 mg PO DAILY 30 Days Qty: 90 RF: 0
[2020-08-13] MEDS: LORazepam 1 MG TABLET PO (12:50)
[2020-08-13 14:02] LABS: Amphetamine Screen Urine Not Detected (Not Detect); Barbiturates, Urine Not Detected (Not Detect); Benzodiazepines Screen Urine Not Detected (Not Detect); Cannabinoid Screen Urine Not Detected (Not Detect); Cocaine Screen Urine Not Detected (Not Detect); Opiate Screen Urine Not Detected (Not Detect); Phencyclidine Screen Urine Not Detected (Not Detect)
[2020-08-13] MEDS: Acetaminophen 325 MG TABLET 650 MG PO (14:23)
--- NOTE | 2020-08-13 14:43 | PC.NURSE ---
Spoke with cousin who states pts presentation is her baseline, per cousin pt always seeks attention constantly and always states feeling bad and suicidal without plan. Had appt with neuro tomorrow for work up for absent seizures Cousin name is Sayda contact [phone] Per cousin pt has bad reactions with Risperdal, Bupropion, depakote and more Seroquel than 25mg
--- NOTE | 2020-08-13 15:47 | PC.NURSE ---
Pt sleeping at this time.
--- NOTE | 2020-08-13 16:00 | PC.NURSE ---
Faxed to [facility]
[2020-08-13 16:21] VITALS: BP 117/83; PULSE 104; RESP 14; O2SAT 98
[2020-08-13 17:42] LABS: Valproate < 2.0 mcg/mL (50.0-100.0)
[2020-08-13 18:00] VITALS: BP 103/68; PULSE 97; RESP 16; O2SAT 98
--- NOTE | 2020-08-13 18:41 | MHC.CARE ---
CARE team contacted [facility] re: referral faxed for pt to be evaluated by a tutoring clinician. [facility] plastic tubing insulation supervisor Cricket reported that there hadn't been any faxes referred, however when informed that the fax number used was [phone] he reported that they transitioned that number to e-fax and only supervisors are able to check that. Receipt of referral was confirmed at that time, with current ETA of a clinician for third shift due to acuity of community taking priority. This screenplay writer planned for a follow up with [facility] at 20:00 to assess clinician availability. If clinician is not readily available, CARE team will complete evaluation and [facility] will contact insurance company to notify them.
--- NOTE | 2020-08-13 18:59 | PC.NURSE ---
Order placed for Med Rec pharm called as pt is requesting her 1800 Clozaril.
--- NOTE | 2020-08-13 19:10 | PC.NURSE ---
Report taken from Payal, this RN resuming care. Pt found sitting upright in bed, speaking full sentences, denies pain/discomfort. Pt requesting 1800 Clozaril dose, this RN contacting pharmacy regarding med rec. Pt assisted OOB into bathroom to provide urine sample. Continue to monitor.
[2020-08-13 19:36] LABS: Glucose Urine UA NEG (NEG); Leukocyte Esterase Urine NEG (NEG); Nitrite Urine NEG (NEG); Urine Blood NEG (NEG); Urine Ketones NEG (NEG); Urine Protein NEG (NEG-TRACE)
[2020-08-13 19:38] LABS: Appearance Urine CLEAR; Color Urine YELLOW
--- NOTE | 2020-08-13 20:54 | PC.NURSE ---
Pharmacy calling as pt is unable to provide accurate information regarding med rec. Pharmacy is unable to verify any prescription medications as they cannot find a claim history for her at the pharmacy she stated she used. Pharmacy calling cousin who helps pt with medical care trying to verify medications. Continue to monitor.
--- NOTE | 2020-08-13 21:35 | PC.NURSE ---
Per Care Team, plan to discharge home as pt reports chronic SI statements and has an appt with Neurology tomorrow.
== END 2020-08-13 22:38 | disposition home or self-care (01) ==
PROVIDERS: Physician Assistant; Emergency Provider Internal Medicine; PCP Internal Medicine
DX: F41.8 Other specified anxiety disorders (principal); F06.34 Mood disorder due to known physiological condition with mixed features; Z79.899 Other long term (current) drug therapy
CPT/HCPCS: 80164; 80307; 81003; 99284

== ENCOUNTER 2020-08-17 10:52 | Outpatient (REF) | payer MEDICAID, SELFPAY ==
[2020-08-18 22:48] LABS: Ceruloplasmin 33 mg/dL (18-53)
[2020-08-21 02:52] LABS: Copper, serum 143 mcg/dL (70-175)
== END 2020-08-17 10:53 | disposition home or self-care (01) ==
LOC: HO.LAB 10:52
PROVIDERS: PCP Internal Medicine; Visit Provider Psychiatry & Neurology Neurology
DX: G93.40 Encephalopathy, unspecified (principal)
CPT/HCPCS: 82390; 82525

== ENCOUNTER 2020-08-20 07:39 | Outpatient (REF) | payer MEDICAID, SELFPAY ==
--- NOTE | 2020-08-20 | MR_ITS ---
EXAMINATION: MR BRAIN WITHOUT AND WITH CONTRAST CLINICAL INFORMATION: Encephalopathy. COMPARISON: None available. TECHNIQUE: Multiplanar, multisequence imaging of the brain was performed before and after the intravenous administration of 8 mL of Gadavist. FINDINGS: There is no acute infarction, hemorrhage, mass, or extra-axial fluid collection. A few minimal nonspecific foci of T2 hyperintensity are seen within the cerebral white matter. The limbic structures appear normal. The ventricles are normal in size and configuration without hydrocephalus. No enhancing lesion is seen. The major arterial flow voids are preserved at the skull base. There is mild paranasal sinus mucosal thickening. MR/MR head/brain wo/w con IMPRESSION: No acute intracranial abnormality identified. No mass or enhancing lesion.
[2020-08-20 10:01] LABS: MANUAL DIFF FLAG NO
[2020-08-20 10:06] LABS: Basophils Percent Auto 0.3 % (0-2); Hematocrit 39.4 % (37-47); Imm Gran Abs Auto 0.02 X10*3/uL (0.00-0.03); Imm Gran Pct Auto 0.2 % (0.0-0.4); Lymphocytes Absolute Auto 1.7 X10*3/uL (1.2-4.9); Lymphocytes Percent Auto 16.5 % (20-40); Mean Corpuscular Hemoglobin 30.4 pg (27.0-33.0); Mean Corpuscular Volume 92.1 fL (80-98); Mean Platelet Volume 10.6 fL (9.4-12.3); Monocytes Absolute Auto 0.9 X10*3/uL (0.1-1.2); Monocytes Percent Auto 8.2 % (2-11); Neutrophils Absolute Auto 7.9 X10*3/uL (2.0-8.3); Neutrophils Percent Auto 74.8 % (45-73); Platelet Count 362 X10*3/uL (160-400); Red Blood Count 4.28 X10*6/uL (4.20-5.50); Red Cell Distribution Width 12.4 % (11.0-16.0); White Blood Count 10.6 X10*3/uL (4.8-10.8)
== END 2020-08-20 07:40 | disposition home or self-care (01) ==
LOC: HO.MRI 07:39
PROVIDERS: PCP Internal Medicine; Referring Provider Psychiatry & Neurology Psychiatry; Visit Provider Psychiatry & Neurology Neurology
DX: G93.40 Encephalopathy, unspecified (principal); Z51.81 Encounter for therapeutic drug level monitoring
CPT/HCPCS: 36415; 70553; 85025; A9585

== ENCOUNTER 2020-08-20 08:09 | Outpatient (REF) | payer MEDICAID, SELFPAY | END 2020-08-20 08:10 | disposition home or self-care (01) | LOC: HO.LNP 08:09 | PROVIDERS: Visit Provider Psychiatry & Neurology Neurology | DX: Z13.89 Encounter for screening for other disorder (principal) ==

== ENCOUNTER → 2020-08-22 11:17 | Outpatient (REF) | payer MEDICAID, SELFPAY ==
[2020-08-22 13:35] LABS: TSH reflex Free T4 0.51 mIU/mL (0.32-4.0)
== END ==
LOC: HO.SL 11:17
PROVIDERS: PCP Internal Medicine; Visit Provider Internal Medicine
DX: E03.9 Hypothyroidism, unspecified (principal); R06.81 Apnea, not elsewhere classified
CPT/HCPCS: 84443

== ENCOUNTER → 2020-08-22 19:59 | Outpatient (REF) | payer MEDICAID, SELFPAY | LOC: HO.SL 19:59 | PROVIDERS: PCP Internal Medicine; Visit Provider Internal Medicine | DX: G47.30 Sleep apnea, unspecified (principal); G47.33 Obstructive sleep apnea (adult) (pediatric) | CPT/HCPCS: 95810 ==

== ENCOUNTER 2020-08-27 09:26 | Outpatient (REF) | payer MEDICAID, SELFPAY ==
[2020-08-27 09:51] LABS: MANUAL DIFF FLAG NO
[2020-08-27 10:03] LABS: Basophils Percent Auto 0.1 % (0-2); Hematocrit 39.9 % (37-47); Hemoglobin 13.1 g/dl (12.0-16.0); Imm Gran Abs Auto 0.02 X10*3/uL (0.00-0.03); Imm Gran Pct Auto 0.3 % (0.0-0.4); Lymphocytes Absolute Auto 2.3 X10*3/uL (1.2-4.9); Lymphocytes Percent Auto 29.4 % (20-40); Mean Corpuscular HGB Conc 32.8 g/dl (31.0-35.0); Mean Corpuscular Hemoglobin 30.1 pg (27.0-33.0); Mean Corpuscular Volume 91.7 fL (80-98); Mean Platelet Volume 10.4 fL (9.4-12.3); Monocytes Absolute Auto 0.7 X10*3/uL (0.1-1.2); Monocytes Percent Auto 9.2 % (2-11); Neutrophils Absolute Auto 4.9 X10*3/uL (2.0-8.3); Platelet Count 356 X10*3/uL (160-400); Red Blood Count 4.35 X10*6/uL (4.20-5.50); Red Cell Distribution Width 12.4 % (11.0-16.0)
== END 2020-08-27 09:27 | disposition home or self-care (01) ==
LOC: HO.LABR 09:26
PROVIDERS: PCP Internal Medicine; Visit Provider Psychiatry & Neurology Psychiatry
DX: Z51.81 Encounter for therapeutic drug level monitoring (principal); Z79.899 Other long term (current) drug therapy
CPT/HCPCS: 36415; 85025; 85048

== ENCOUNTER 2020-08-30 15:55 | Outpatient (REF) | payer MEDICAID, SELFPAY ==
--- NOTE | 2020-08-30 | MM_ITS ---
EXAMINATION: MM SCREENING DIGITAL BREAST TOMOSYNTHESIS, BILATERAL CLINICAL INFORMATION: Screening. Asymptomatic. No prior surgery. No known family history breast cancer. Prior mammography performed in [place] at unknown facility and currently unavailable. Patient will attempt to retrieve prior exam if possible. The lifetime risk of breast cancer based on the Tyrer-Cuzick Model is 10%. COMPARISON: None. TECHNIQUE: Digital breast tomosynthesis is performed in both the craniocaudal and mediolateral oblique views along with computer-aided detection (CAD). Synthesized 2D images are generated from the tomosynthesis. FINDINGS: There are scattered areas of fibroglandular density (ACR BI-RADS breast composition Category b). Breast tissue composition borders on heterogeneously dense the right breast is unremarkable. There is no significant mass or architectural abnormality. Neither breast shows abnormal calcifications. The axilla and skin contours are unremarkable. The left breast has subtle architectural changes mid 3:00 position on both views. Patient will be recalled for additional imaging. MM/MM tomosynthesis screening BI IMPRESSION: 1. Left: Subtle architectural changes mid 3:00 position. 2. Right: No mammographic evidence of malignancy. ASSESSMENT: BI-RADS 0: Incomplete - Need Additional Imaging Evaluation RECOMMENDATION: 1. Additional views of the left breast (3-D spot CC, 3-D spot ML). 2. Targeted ultrasound left breast. 3. Radiology department staff will contact the patient for additional imaging. This patient's information was entered into a reminder system with a target due date for their next mammogram.
== END 2020-08-30 15:56 | disposition home or self-care (01) ==
LOC: HO.MAMMO 15:55
PROVIDERS: Visit Provider Internal Medicine
DX: Z12.31 Encounter for screening mammogram for malignant neoplasm of breast (principal)
CPT/HCPCS: 77063; 77067

== ENCOUNTER 2020-08-31 13:42 | Emergency (ER) | payer MEDICAID, SELFPAY ==
[2020-08-31 13:46] VITALS: BP 132/84; PULSE 110; RESP 18; TEMP 36.9; O2SAT 97; BMI 31.4
--- NOTE | 2020-08-31 15:51 | ED_ITS ---
HPI - General Adult General Chief complaint: General Medical Stated complaint: med refill Time Seen by Provider: 08/31/20 15:19 Source: patient Mode of arrival: ambulatory Limitations: no limitations History of Present Illness HPI narrative: Patient comes to emergency room requesting a small prescription of Synthroid. Patient comes with her healthcare proxy, who explains that the patient's Synthroid was sent to [place] [facility], however due to the holidays they are not sending any medications until next week. Patient takes 100 mcg of Synthroid per day. Requesting to bridge her until she gets her prescription. MD complaint: Medication prescription Related Data Home Medications Medication Instructions Recorded Confirmed levothyroxine 100 mcg PO DAILY@0630 05/30/20 08/13/20 benztropine 0.5 mg PO TID 08/13/20 08/13/20 clozapine [Clozaril] 100 mg PO DAILY 08/13/20 08/13/20 ergocalciferol (vitamin D2) 1,250 mcg PO TU@0900 08/13/20 08/13/20 [Vitamin D2] lamotrigine [Lamictal] 100 mg PO DAILY 08/13/20 08/13/20 propranolol 20 mg PO BEDTIME 08/13/20 08/13/20 quetiapine 25 mg PO BEDTIME 08/13/20 08/13/20 quetiapine [Seroquel] 25 mg PO DAILY PRN 08/13/20 08/13/20 Previous Rx's Medication Instructions Recorded clozapine 200 mg PO DAILY@1800 30 Days #60 07/17/20 tab diazepam [Valium] 2 mg PO BID PRN #60 tab 07/17/20 levothyroxine [Synthroid] 100 mcg PO DAILY #10 tab 08/31/20 Allergies Allergy/AdvReac Type Severity Reaction Status Date / Time bupropion AdvReac Unknown Verified 08/13/20 14:51 divalproex sodium AdvReac Unknown Verified 08/13/20 14:51 [From Depakote] risperidone AdvReac Unknown Verified 08/13/20 14:51 Review of Systems Review of Systems: Constitutional : No Weight loss, No Fever, No Chills, No Night Sweats, No Fatigue, No Malaise ENT/Mouth : No Hearing loss, No Ear Pain, No Nasal Congestion, No Sinus Pain, No Hoarseness, No sore throat, No Rhinorrhea, No Swallowing Difficulty Eyes: No Eye Pain, No Swelling, No Redness, No Foreign Body, No Discharge, No Vision Changes Cardiovascular : No Chest Pain, No SOB, No Dyspnea on Exertion, No Orthopnea, No Edema, No Palpitations Respiratory : No Cough, No Sputum, No Wheezing, No Smoke Exposure, No Dyspnea Gastrointestinal : No Nausea, No Vomiting, No Diarrhea, No Constipation, No abdominal Pain, No Hematochezia, No Melena Genitourinary : no irregular bleeding, No Dysuria, No Urinary Frequency, No Hematuria, No Urinary Incontinence, No Urgency, No Flank Pain, No Urinary Flow Changes, No Hesitancy Musculoskeletal : No joint pain, No Myalgias, No Joint Swelling Skin : No Skin Lesions, No rash Neuro : No Weakness, No Numbness, No Paresthesias, No Loss of Consciousness, No Dizziness, No Headache Psych : No Anxiety/Panic, No Depression, No SI/HI/AH/VH, No Social Issues, Heme/Lymph: No Bruising, No Bleeding,No Lymphadenopathy Endocrine : No Polyuria, No Polydipsia, No Temperature Intolerance [facility] Past Medical History Medical History Bipolar 1 disorder, mixed Hypothyroidism OCD (obsessive compulsive disorder) Social History Social History Smoking Status: Never smoker Packs Per Day: 1 Cigarettes Per Day: 20.0 Years Smoked: 15 Second Hand Smoke Exposure: No Advance Directives: No Advance Directives Information Provided: No Physical Exam Vital Signs: Vital Signs: Last Vital Signs Temp 98.5 F 08/31/20 13:46 Pulse 110 H 08/31/20 13:46 Resp 18 08/31/20 13:46 BP 132/84 08/31/20 13:46 Pulse Ox 97 08/31/20 13:46 Body Mass Index 31.4 Appearance: Alert. Oriented X3. No acute distress. Eyes: Pupils equal, round and reactive to light. ENT: Pharynx normal. Neck: Normal inspection. Neck supple. No lymph nodes noted. No crepitus, no palpable thyroid nodules CVS: Normal heart rate and rhythm. Pulses normal. Normal S1 and S2 Respiratory: No respiratory distress. Breath sounds normal. No Wheezing. No rales Abdomen: Soft and nontender. No rigidity. No distention. good BS x4 Skin: Skin warm and dry. Normal skin color. Normal skin turgor. Extremities: No lower extremity edema. No lower extremity edema. No Lacerations. No Rash Neuro: Oriented X 3. No motor deficit. No sensory deficit. Moving all extermities. No slurred speech. Course Course Course Narrative: I agree with the patient and her have a proxy that we will bridge her medication until next week. Patient stated that she is concerned that she has thyroid nodules. On physical exam I did not palpate any nodules, however I instructed her to follow up with her primary care physician as she may need ultrasound and referral to Endocrinology if needed. At this time, we will go ahead and send the prescription to the patient's secondary pharmacy, patient and her healthcare proxy agree with plan Discharge Plan Discharge Clinical Impression: Medication refill Patient Disposition: Home, Self-Care Instructions: Medicine Refill (ED) Additional Instructions: Please follow-up with your primary care physician tomorrow. If you have any worsening or new symptoms, please return to the emergency room or call 911 Prescriptions: New levothyroxine [Synthroid] 100 mcg tablet 100 mcg PO DAILY Qty: 10 RF: 0 No Action levothyroxine 100 mcg Tablet 100 mcg PO DAILY@0630 RF: 0 clozapine 100 mg Tablet 200 mg PO DAILY@1800 30 Days Qty: 60 RF: 0 diazepam [Valium] 2 mg tablet 2 mg PO BID PRN (Reason: anxiety) Qty: 60 RF: 0 quetiapine [Seroquel] 25 mg Tablet 25 mg PO DAILY PRN (Reason: Anxiety) RF: 0 clozapine [Clozaril] 100 mg Tablet 100 mg PO DAILY RF: 0 propranolol 20 mg Tablet 20 mg PO BEDTIME RF: 0 lamotrigine [Lamictal] 100 mg Tablet 100 mg PO DAILY RF: 0 quetiapine 25 mg tablet 25 mg PO BEDTIME RF: 0 ergocalciferol (vitamin D2) [Vitamin D2] 1,250 mcg (50,000 unit) capsule 1,250 mcg PO TU@0900 RF: 0 benztropine 0.5 mg tablet 0.5 mg PO TID RF: 0
== END 2020-08-31 16:17 | disposition home or self-care (01) ==
PROVIDERS: Emergency Provider Emergency Medicine; PCP Internal Medicine
DX: Z76.0 Encounter for issue of repeat prescription (principal); E03.9 Hypothyroidism, unspecified
CPT/HCPCS: 99283

== ENCOUNTER 2020-09-03 10:31 | Outpatient (REF) | payer MEDICAID, SELFPAY ==
[2020-09-03 11:02] LABS: MANUAL DIFF FLAG NO
[2020-09-03 11:12] LABS: Basophils Percent Auto 0.4 % (0-2); Hematocrit 40.9 % (37-47); Hemoglobin 13.4 g/dl (12.0-16.0); Imm Gran Abs Auto 0.02 X10*3/uL (0.00-0.03); Imm Gran Pct Auto 0.3 % (0.0-0.4); Lymphocytes Absolute Auto 1.9 X10*3/uL (1.2-4.9); Lymphocytes Percent Auto 23.6 % (20-40); Mean Corpuscular HGB Conc 32.8 g/dl (31.0-35.0); Mean Corpuscular Hemoglobin 29.9 pg (27.0-33.0); Mean Corpuscular Volume 91.3 fL (80-98); Mean Platelet Volume 10.8 fL (9.4-12.3); Monocytes Absolute Auto 0.8 X10*3/uL (0.1-1.2); Neut%MD 65.7 %; Neutrophils Absolute Auto 5.2 X10*3/uL (2.0-8.3); Neutrophils Percent Auto 65.7 % (45-73); Platelet Count 380 X10*3/uL (160-400); Red Blood Count 4.48 X10*6/uL (4.20-5.50); Red Cell Distribution Width 11.9 % (11.0-16.0); WBCANC 7.9 X10*3/uL; White Blood Count 7.9 X10*3/uL (4.8-10.8)
== END 2020-09-03 10:32 | disposition home or self-care (01) ==
LOC: HO.LABR 10:31
PROVIDERS: PCP Internal Medicine; Visit Provider Psychiatry & Neurology Psychiatry
DX: Z51.81 Encounter for therapeutic drug level monitoring (principal)
CPT/HCPCS: 36415; 85025; 85048

== ENCOUNTER → 2020-09-04 15:02 | Outpatient (BNVA) | payer MEDICAID, SELFPAY | PROVIDERS: PCP Internal Medicine; Visit Provider Surgery | DX: D17.0 Benign lipomatous neoplasm of skin and subcutaneous tissue of head, face and neck (principal); D17.1 Benign lipomatous neoplasm of skin and subcutaneous tissue of trunk | CPT/HCPCS: 99202 ==

== ENCOUNTER 2020-09-10 10:02 | Outpatient (REF) | payer MEDICAID, SELFPAY ==
[2020-09-10 10:39] LABS: MANUAL DIFF FLAG NO
[2020-09-10 10:54] LABS: Basophils Percent Auto 0.3 % (0-2); Hematocrit 40.2 % (37-47); Hemoglobin 13.5 g/dl (12.0-16.0); Imm Gran Abs Auto 0.02 X10*3/uL (0.00-0.03); Imm Gran Pct Auto 0.3 % (0.0-0.4); Lymphocytes Absolute Auto 1.7 X10*3/uL (1.2-4.9); Lymphocytes Percent Auto 22.1 % (20-40); Mean Corpuscular HGB Conc 33.6 g/dl (31.0-35.0); Mean Corpuscular Hemoglobin 30.3 pg (27.0-33.0); Mean Corpuscular Volume 90.3 fL (80-98); Mean Platelet Volume 10.7 fL (9.4-12.3); Monocytes Absolute Auto 0.7 X10*3/uL (0.1-1.2); Monocytes Percent Auto 8.9 % (2-11); Neut%MD 68.4 %; Neutrophils Absolute Auto 5.3 X10*3/uL (2.0-8.3); Neutrophils Percent Auto 68.4 % (45-73); Platelet Count 373 X10*3/uL (160-400); Red Blood Count 4.45 X10*6/uL (4.20-5.50); WBCANC 7.7 X10*3/uL; White Blood Count 7.7 X10*3/uL (4.8-10.8)
== END 2020-09-10 10:03 | disposition home or self-care (01) ==
LOC: HO.LABR 10:02
PROVIDERS: PCP Internal Medicine; Visit Provider Psychiatry & Neurology Psychiatry
DX: Z51.81 Encounter for therapeutic drug level monitoring (principal)
CPT/HCPCS: 36415; 85025; 85048; 85060

== ENCOUNTER 2020-09-17 10:33 | Outpatient (REF) | payer MEDICAID, SELFPAY ==
--- NOTE | 2020-09-17 10:41 | CT_ITS ---
EXAMINATION: CT SOFT TISSUE NECK WITHOUT CONTRAST CLINICAL INFORMATION: Benign lipomatous neoplasm of the skin and subcutaneous tissues of the head, face, and neck. COMPARISON: None TECHNIQUE: Helical imaging was performed in the axial plane with generation of coronal and sagittal reformatted images. This CT examination was performed using dose optimization techniques as appropriate, variously including the following: *Automated exposure control *Adjustment of mA and/or kV according to patient size (this includes techniques or standardized protocols for targeted exams where dose is matched to indication/reason for exam; i.e. extremities or head) *Use of iterative reconstruction technique DLP: 352 mGy-cm FINDINGS: There is small reaction lymph nodes visualized in bilateral neck. This largest short axis lymph node measures 1.0 cm at the left carotid bifurcation, sagittal image 15/5. The largest short axis right neck lymph node, level 2 measures 8 mm. The parotid glands are homogeneous in attenuation. The submandibular glands are normal. No contour abnormality or pathologic enhancement is seen within the oral cavity or pharyngeal mucosal space. The laryngeal structures are normal. The parapharyngeal fat is preserved. The carotid sheath vasculature opacify normally. No extra mucosal soft tissue mass or fluid collection is seen. No retropharyngeal fluid collection is seen. The thyroid gland is normal. The superior mediastinum is unremarkable. The lung apices are clear. The mastoid air cells and visualized portions of the paranasal sinuses are well-aerated. The temporomandibular joints are normal. No periapical disease is identified. No osseous abnormalities are seen. The imaged portions of the brain parenchyma are unremarkable. CT/CT soft tissue neck wo con IMPRESSION: Unremarkable CT neck exam without contrast.
[2020-09-17 11:31] LABS: MANUAL DIFF FLAG NO
[2020-09-17 11:35] LABS: Basophils Percent Auto 0.4 % (0-2); Hematocrit 39.5 % (37-47); Hemoglobin 13.3 g/dl (12.0-16.0); Imm Gran Abs Auto 0.02 X10*3/uL (0.00-0.03); Imm Gran Pct Auto 0.3 % (0.0-0.4); Lymphocytes Absolute Auto 2.1 X10*3/uL (1.2-4.9); Lymphocytes Percent Auto 29.7 % (20-40); Mean Corpuscular HGB Conc 33.7 g/dl (31.0-35.0); Mean Corpuscular Hemoglobin 30.4 pg (27.0-33.0); Mean Corpuscular Volume 90.4 fL (80-98); Mean Platelet Volume 10.7 fL (9.4-12.3); Monocytes Absolute Auto 0.7 X10*3/uL (0.1-1.2); Neut%MD 59.6 %; Neutrophils Absolute Auto 4.2 X10*3/uL (2.0-8.3); Neutrophils Percent Auto 59.6 % (45-73); Platelet Count 366 X10*3/uL (160-400); Red Blood Count 4.37 X10*6/uL (4.20-5.50); Red Cell Distribution Width 12.1 % (11.0-16.0)
== END 2020-09-17 10:34 | disposition home or self-care (01) ==
LOC: HO.CT 10:33
PROVIDERS: Absent Provider Psychiatry & Neurology Psychiatry; PCP Internal Medicine; Visit Provider Surgery
DX: D17.0 Benign lipomatous neoplasm of skin and subcutaneous tissue of head, face and neck (principal); Z51.81 Encounter for therapeutic drug level monitoring
CPT/HCPCS: 36415; 70490; 85025; 85048

== ENCOUNTER 2020-09-19 08:42 | Outpatient (REF) | payer MEDICAID, SELFPAY ==
--- NOTE | 2020-09-19 | US_ITS ---
EXAMINATION: US THYROID CLINICAL INFORMATION: Hypothyroidism. COMPARISON: CT soft tissue head/neck 09/17/2020 TECHNIQUE: Linear transducer fulton-scale and color Doppler examination with attention to the region of the thyroid. FINDINGS: SIZE: Measurements of the thyroid lobes and nodules are given in sagittal, anteroposterior and transverse dimensions respectively. Right Thyroid Lobe: 3.6 x 1.4 x 1.4 cm, volume 3.7 mL. Parenchyma: The gland echotexture is slightly heterogeneous. Thyroid vascularity is normal. Left Thyroid Lobe: 3.7 x 0.8 x 1.4 cm, volume 2.2 mL. Parenchyma: The gland echotexture is slightly heterogeneous. Thyroid vascularity is normal. Isthmus: 0.1 cm in maximum AP dimension. RIGHT THYROID LOBE: No nodules. ISTHMUS: No nodules. LEFT THYROID LOBE: No nodules. NODES: No lymphadenopathy is seen in the tissue surrounding the thyroid gland. US/US thyroid IMPRESSION: Heterogeneous normal-size thyroid gland with no focal nodule or mass seen.
== END 2020-09-19 08:43 | disposition home or self-care (01) ==
LOC: HO.US 08:42
PROVIDERS: Visit Provider Nurse Practitioner Family
DX: E04.1 Nontoxic single thyroid nodule (principal)
CPT/HCPCS: 76536

== ENCOUNTER 2020-09-24 12:02 | Outpatient (REF) | payer MEDICAID, SELFPAY ==
[2020-09-24 12:34] LABS: MANUAL DIFF FLAG NO
[2020-09-24 12:37] LABS: Basophils Percent Auto 0.3 % (0-2); Hematocrit 40.3 % (37-47); Hemoglobin 13.5 g/dl (12.0-16.0); Imm Gran Abs Auto 0.04 X10*3/uL (0.00-0.03); Imm Gran Pct Auto 0.4 % (0.0-0.4); Lymphocytes Absolute Auto 1.6 X10*3/uL (1.2-4.9); Lymphocytes Percent Auto 17.5 % (20-40); Mean Corpuscular HGB Conc 33.5 g/dl (31.0-35.0); Mean Corpuscular Hemoglobin 30.5 pg (27.0-33.0); Mean Corpuscular Volume 91.2 fL (80-98); Mean Platelet Volume 10.8 fL (9.4-12.3); Monocytes Absolute Auto 0.7 X10*3/uL (0.1-1.2); Monocytes Percent Auto 7.8 % (2-11); Neutrophils Absolute Auto 6.6 X10*3/uL (2.0-8.3); Platelet Count 355 X10*3/uL (160-400); Red Blood Count 4.42 X10*6/uL (4.20-5.50)
== END 2020-09-24 12:03 | disposition home or self-care (01) ==
LOC: HO.LAB 12:02
PROVIDERS: PCP Internal Medicine; Visit Provider Psychiatry & Neurology Psychiatry
DX: Z51.81 Encounter for therapeutic drug level monitoring (principal)
CPT/HCPCS: 36415; 85025; 85048

== ENCOUNTER 2020-10-01 10:10 | Outpatient (REF) | payer MEDICAID, SELFPAY ==
[2020-10-01 10:38] LABS: MANUAL DIFF FLAG NO
[2020-10-01 10:43] LABS: Basophils Percent Auto 0.3 % (0-2); Hematocrit 38.4 % (37-47); Hemoglobin 12.9 g/dl (12.0-16.0); Imm Gran Abs Auto 0.01 X10*3/uL (0.00-0.03); Imm Gran Pct Auto 0.2 % (0.0-0.4); Lymphocytes Absolute Auto 1.3 X10*3/uL (1.2-4.9); Lymphocytes Percent Auto 20.2 % (20-40); Mean Corpuscular HGB Conc 33.6 g/dl (31.0-35.0); Mean Corpuscular Hemoglobin 30.3 pg (27.0-33.0); Mean Corpuscular Volume 90.1 fL (80-98); Mean Platelet Volume 10.7 fL (9.4-12.3); Monocytes Absolute Auto 0.6 X10*3/uL (0.1-1.2); Monocytes Percent Auto 9.4 % (2-11); Neut%MD 69.9 %; Neutrophils Absolute Auto 4.4 X10*3/uL (2.0-8.3); Neutrophils Percent Auto 69.9 % (45-73); Platelet Count 303 X10*3/uL (160-400); Red Blood Count 4.26 X10*6/uL (4.20-5.50); Red Cell Distribution Width 12.2 % (11.0-16.0); WBCANC 6.3 X10*3/uL; White Blood Count 6.3 X10*3/uL (4.8-10.8)
== END 2020-10-01 10:11 | disposition home or self-care (01) ==
LOC: HO.LABR 10:10
PROVIDERS: Visit Provider Psychiatry & Neurology Psychiatry
DX: Z51.81 Encounter for therapeutic drug level monitoring (principal)
CPT/HCPCS: 36415; 85025; 85048

== ENCOUNTER 2020-10-02 09:05 | Outpatient (REF) | payer MEDICAID, SELFPAY ==
--- NOTE | 2020-10-02 | US_ITS ---
EXAMINATION: US BREAST DIAGNOSTIC, LEFT CLINICAL INFORMATION: Region of architectural distortion, left breast. COMPARISON: Mammography of same day as well as 08/30/2020. TECHNIQUE: Ultrasound of the breast is performed with real-time fulton scale imaging and color Doppler. FINDINGS: Targeted left breast ultrasound demonstrates at the 3 o'clock position approximately 4.0 cm from the nipple, a heterogeneous density with question of a cyst in the midportion measuring approximately 5 x 3 x 2 mm in size. No associated edema or architectural distortion adjacent to it is seen and this may not represent the mammographic finding however, this finding is an indeterminate lesion and ultrasound-guided biopsy is recommended. If the clip does not correspond to the region of architectural distortion seen on mammography than I would recommend stereotactic biopsy of the region of architectural distortion within the left breast. Results are discussed with the patient at time of visit. [facility] patient navigator will contact the referring provider's office with the above recommendation. US/US breast LT limited IMPRESSION: There is persistence in the region of architectural distortion of mammography (breast approximately 3 o'clock position. Ultrasound of the lateral aspect of the left breast demonstrates a heterogeneous density which is indeterminate in nature and for which ultrasound-guided core biopsy is recommended with clip placement. Post mammogram of the left breast should be evaluated pf the placement in relationship to the spiculated region seen on mammography. If the clip does not correspond to this lesion, then would recommend stereotactic core biopsy of the region of architectural distortion of the left breast. ASSESSMENT: BI-RADS 4: Suspicious RECOMMENDATION: Left breast ultrasound and possible stereotactic biopsy.
--- NOTE | 2020-10-02 | MM_ITS ---
EXAMINATION: MM DIAGNOSTIC DIGITAL BREAST TOMOSYNTHESIS, LEFT Targeted left breast ultrasound CLINICAL INFORMATION: Region of architectural distortion 3 o'clock position left breast. COMPARISON: Mammography: 08/30/2020 TECHNIQUE: Digital breast tomosynthesis is performed in both the craniocaudal, 90-degree mediolateral, and mediolateral oblique spot compression views. Synthesized 2D images are generated from the tomosynthesis. Targeted left breast ultrasound. FINDINGS: There are scattered areas of fibroglandular density (ACR BI-RADS breast composition Category b). There is persistence of a region of architectural distortion about the 3 o'clock position of the left breast, approximately 6 cm from the nipple. Targeted left breast ultrasound demonstrates at the 3 o'clock position, approximately 4 cm from the nipple, a heterogeneous density with question cyst in the midportion, measuring approximately 5 x 3 x 2 mm in size. No associated edema or architectural distortion adjacent to it is seen and this may not represent the mammographic finding, however, this finding is an indeterminate lesion and ultrasound-guided biopsy is recommended. If the clip does not correspond to the region of architectural distortion seen on mammography, then I would recommend stereotactic biopsy of the region of architectural distortion within the left breast. Results are discussed with the patient at time of visit. [facility] Patient Navigator will contact referring provider's office with the above recommendation. MM/MM tomosynthesis diagnostic BI IMPRESSION: There is persistence of region of architectural distortion on mammography left breast, approximately 3 o'clock position. Ultrasound of the lateral aspect of the left breast demonstrates a heterogeneous density which is indeterminate in nature and for which ultrasound-guided core biopsy is recommended with clip placement. Post-mammogram of the left breast should be evaluated for clip placement in relationship to the spiculated region seen on mammography. If the clip does not correspond to this lesion, then would recommend stereotactic core biopsy of the region of architectural distortion of the left breast. ASSESSMENT: BI-RADS 4: Suspicious RECOMMENDATION: Left breast ultrasound and possible stereotactic biopsy.
--- NOTE | 2020-10-02 09:11 | CT_ITS ---
EXAMINATION: CT CHEST WITHOUT CONTRAST CLINICAL INFORMATION: Benign lipomatous neoplasm of skin and subcutaneous tissue. COMPARISON: Neck CT 09/17/2020 TECHNIQUE: Multidetector volumetric CT imaging of the chest was done. Axial MIP volume rendering provided. Sagittal and coronal reformatted images were obtained. This CT examination was performed using dose optimization techniques as appropriate, variously including the following: *Automated exposure control *Adjustment of mA and/or kV according to patient size (this includes techniques or standardized protocols for targeted exams where dose is matched to indication/reason for exam; i.e. extremities or head) *Use of iterative reconstruction technique DLP: 183 mGy-cm. FINDINGS: FULFILLMENT SPECIALIST: Unremarkable. LUNGS: The lungs are clear. No evidence of emphysema, interstitial lung disease or bronchiectasis is seen. No endobronchial or endotracheal lesion. MEDIASTINUM: The mediastinum is normal. No adenopathy is seen. Heart size normal. No pericardial effusion. Normal caliber thoracic aorta. Normal-appearing thyroid gland. Normal-appearing esophagus. PLEURA: There is no pleural effusion. No pleural mass or thickening. AXILLA: No chest wall mass. No lymphadenopathy. The right trapezius muscle is larger than the left. The muscle is normal in attenuation without evidence of a mass. The overlying fat and subcutaneous soft tissues are normal. This is not appreciated on the neck CT 09/17/2020 and this may be related to arm positioning. UPPER ABDOMEN: Unremarkable. OSSEOUS STRUCTURES: Unremarkable. CT/CT chest wo con IMPRESSION: The right trapezius muscle is more prominent or enlarged compared to the left. This is not appreciated on recent neck CT scan 09/17/2020 and may be related to arm positioning. Otherwise unremarkable exam.
== END 2020-10-02 09:06 | disposition home or self-care (01) ==
LOC: HO.CT 09:05
PROVIDERS: Visit Provider Internal Medicine
DX: D17.1 Benign lipomatous neoplasm of skin and subcutaneous tissue of trunk (principal); R92.2 Inconclusive mammogram
CPT/HCPCS: 71250; 76642; 77062; 77066

== ENCOUNTER 2020-10-02 09:41 | Outpatient (REF) | payer MEDICAID, SELFPAY | END 2020-10-02 09:42 | disposition home or self-care (01) | LOC: HO.LAB 09:41 | PROVIDERS: PCP Internal Medicine; Visit Provider Internal Medicine | DX: Z20.822 Contact with and (suspected) exposure to COVID-19 (principal) | CPT/HCPCS: 36415; C9803; U0003; U0005 ==

== ENCOUNTER 2020-10-03 09:39 | Outpatient (REF) | payer MEDICAID, SELFPAY ==
--- NOTE | 2020-10-03 | US_ITS ---
EXAMINATION: US ATTEMPTED ULTRASOUND-GUIDED BIOPSY OF THE LEFT BREAST CLINICAL INFORMATION: Mammographic abnormality seen at the 3 o'clock position of the left breast with ultrasound evaluation demonstrating a less suspicious looking lesion but which may correspond to the mammographic finding. COMPARISON: 10/02/2020 and 08/30/2020. FINDINGS: Attempt of obtaining consent for left breast biopsy was performed with boilerhouse mechanic. The patient was very obstructed with discussion of possible minor complications and home care after the procedure. The patient seemed to have some problems with comprehension and after 40 minutes of attempting to get consent for the procedure and relax the patient, the procedure was aborted. Since the lesion appears more suspicious under mammography and the ultrasound finding may not correspond to the mammographic finding at this point, I would recommend stereotactic biopsy of the left breast with someone in the room to support the patient through the procedure. If the stereotactic biopsy lesion does not correspond to the ultrasound finding, then would consider 6-month follow-up ultrasound for the less suspicious-appearing lesion. The above was also discussed with the patient's wiping rag washer.
== END 2020-10-03 09:40 | disposition home or self-care (01) ==
LOC: HO.MAMMO 09:39
PROVIDERS: Visit Provider Surgery
DX: R92.8 Other abnormal and inconclusive findings on diagnostic imaging of breast (principal); N63.25 Unspecified lump in the left breast, overlapping quadrants
CPT/HCPCS: 19083; 77065; 99212

== ENCOUNTER 2020-10-08 07:53 | Outpatient (REF) | payer MEDICAID, SELFPAY ==
--- NOTE | ~2020-10-08 | MM_ITS ---
EXAMINATION: STEREOTACTIC TOMOSYNTHESIS-GUIDED VACUUM-ASSISTED BREAST BIOPSY, LEFT SPECIMEN RADIOGRAPH, LEFT POST PROCEDURE 3-D DIGITAL BREAST TOMOSYNTHESIS, LEFT CLINICAL INFORMATION: Subtle architectural changes mid 3:00 position left breast. COMPARISON: Mammography 08/30/2020, 10/02/2020, ultrasound left breast 10/02/2020. TECHNIQUE/PROCEDURE: Informed consent was obtained from the patient and her health proxy (cousin) after discussion of the benefits, risks, and alternatives to biopsy today. They both appeared to understand. Gave opportunity for questions. The health proxy signed consent form. BIOPSY TABLE: [employer] Affirm Prone Biopsy System. LESION: Subtle architectural changes mid 3:00 left breast. LOCAL ANESTHESIA: 7 mL 1% lidocaine; 16 mL 1% lidocaine with epinephrine. DERMATOTOMY: Single skin becky dermatotomy performed. NEEDLE: [employer] Eviva 9-gauge vacuum assisted core biopsy device. APPROACH: lateral medial. TARGETING: Digital breast tomosynthesis used for targeting. CORES: 12. CLIP: [employer] Cylinder-shaped marker. SPECIMEN RADIOGRAPH: Specimen radiograph is taken in separate room using digital mammography. There are scattered fibroglandular densities in the cores as expected. POST PROCEDURE 3-D DIGITAL BREAST TOMOSYNTHESIS, RIGHT: The post biopsy mammogram is performed in separate room using separate digital breast tomosynthesis equipment from the biopsy procedure. CC and ML views are obtained. Synthesized 2-D images are obtained from the tomography. The clip marker is in position. There is a hematoma around the clip marker measuring approximately 3.2 x 3.5 x 4.0 cm. Compression was held for at least 30 minutes, prior to the post biopsy mammography. Patient otherwise tolerated the procedure well. Home instructions reviewed with the patient and her health proxy. Final pathology results are pending. MM/MM stereotactic biopsy LT IMPRESSION: 1. Digital tomosynthesis-guided core biopsy left breast with clip placement. 2. Specimen radiograph taken and post procedure mammogram. There is satisfactory positioning of the biopsy clip. 4. There is a postbiopsy hematoma measuring approximately 3.2 x 3.5 x 4.0 cm. 5. Final pathology results pending. An addendum report will be issued.
== END 2020-10-08 07:54 | disposition home or self-care (01) ==
LOC: HO.MAMMO 07:53
PROVIDERS: PCP Internal Medicine; Visit Provider Surgery
DX: R92.8 Other abnormal and inconclusive findings on diagnostic imaging of breast (principal); N62 Hypertrophy of breast
CPT/HCPCS: 19081; 88305; 88341; 88342

== ENCOUNTER 2020-10-08 13:03 | Outpatient (REF) | payer MEDICAID, SELFPAY ==
[2020-10-08 13:52] LABS: MANUAL DIFF FLAG NO
[2020-10-08 13:58] LABS: Basophils Percent Auto 0.4 % (0-2); Hematocrit 40.1 % (37-47); Hemoglobin 13.4 g/dl (12.0-16.0); Imm Gran Abs Auto 0.03 X10*3/uL (0.00-0.03); Imm Gran Pct Auto 0.4 % (0.0-0.4); Lymphocytes Absolute Auto 1.8 X10*3/uL (1.2-4.9); Lymphocytes Percent Auto 20.6 % (20-40); Mean Corpuscular HGB Conc 33.4 g/dl (31.0-35.0); Mean Corpuscular Hemoglobin 30.1 pg (27.0-33.0); Mean Corpuscular Volume 90.1 fL (80-98); Mean Platelet Volume 10.9 fL (9.4-12.3); Monocytes Absolute Auto 0.6 X10*3/uL (0.1-1.2); Monocytes Percent Auto 7.5 % (2-11); Neut%MD 71.1 %; Neutrophils Percent Auto 71.1 % (45-73); Platelet Count 371 X10*3/uL (160-400); Red Blood Count 4.45 X10*6/uL (4.20-5.50); Red Cell Distribution Width 12.1 % (11.0-16.0); WBCANC 8.5 X10*3/uL; White Blood Count 8.5 X10*3/uL (4.8-10.8)
== END 2020-10-08 13:04 | disposition home or self-care (01) ==
LOC: HO.LABR 13:03
PROVIDERS: PCP Internal Medicine; Visit Provider Psychiatry & Neurology Psychiatry
DX: Z51.81 Encounter for therapeutic drug level monitoring (principal)
CPT/HCPCS: 36415; 85025; 85048

== ENCOUNTER → 2020-10-12 11:48 | Outpatient (BNVA) | payer MEDICAID, SELFPAY | PROVIDERS: PCP Internal Medicine; Visit Provider Surgery | DX: R92.8 Other abnormal and inconclusive findings on diagnostic imaging of breast (principal) | CPT/HCPCS: 99212 ==

== ENCOUNTER 2020-10-15 11:03 | Outpatient (REF) | payer MEDICAID, SELFPAY ==
[2020-10-15 11:42] LABS: MANUAL DIFF FLAG NO
[2020-10-15 11:51] LABS: Basophils Percent Auto 0.3 % (0-2); Hematocrit 38.9 % (37-47); Hemoglobin 13.1 g/dl (12.0-16.0); Imm Gran Abs Auto 0.03 X10*3/uL (0.00-0.03); Imm Gran Pct Auto 0.3 % (0.0-0.4); Lymphocytes Absolute Auto 1.6 X10*3/uL (1.2-4.9); Lymphocytes Percent Auto 17.9 % (20-40); Mean Corpuscular HGB Conc 33.7 g/dl (31.0-35.0); Mean Corpuscular Hemoglobin 30.5 pg (27.0-33.0); Mean Corpuscular Volume 90.5 fL (80-98); Mean Platelet Volume 10.8 fL (9.4-12.3); Monocytes Absolute Auto 0.8 X10*3/uL (0.1-1.2); Monocytes Percent Auto 9.4 % (2-11); Neut%MD 72.1 %; Neutrophils Absolute Auto 6.5 X10*3/uL (2.0-8.3); Neutrophils Percent Auto 72.1 % (45-73); Platelet Count 386 X10*3/uL (160-400); Red Cell Distribution Width 12.4 % (11.0-16.0)
== END 2020-10-15 11:04 | disposition home or self-care (01) ==
LOC: HO.LABR 11:03
PROVIDERS: PCP Internal Medicine; Visit Provider Psychiatry & Neurology Psychiatry
DX: Z51.81 Encounter for therapeutic drug level monitoring (principal)
CPT/HCPCS: 36415; 85025; 85048

== ENCOUNTER 2020-10-22 09:19 | Outpatient (REF) | payer MEDICAID, SELFPAY ==
[2020-10-22 10:18] LABS: MANUAL DIFF FLAG NO
[2020-10-22 10:24] LABS: Basophils Percent Auto 0.3 % (0-2); Hematocrit 40.9 % (37-47); Hemoglobin 13.7 g/dl (12.0-16.0); Imm Gran Abs Auto 0.01 X10*3/uL (0.00-0.03); Imm Gran Pct Auto 0.1 % (0.0-0.4); Lymphocytes Percent Auto 19.6 % (20-40); Mean Corpuscular HGB Conc 33.5 g/dl (31.0-35.0); Mean Corpuscular Hemoglobin 29.8 pg (27.0-33.0); Mean Corpuscular Volume 89.1 fL (80-98); Mean Platelet Volume 10.8 fL (9.4-12.3); Monocytes Absolute Auto 0.8 X10*3/uL (0.1-1.2); Monocytes Percent Auto 7.4 % (2-11); Neutrophils Absolute Auto 7.4 X10*3/uL (2.0-8.3); Neutrophils Percent Auto 72.6 % (45-73); Platelet Count 410 X10*3/uL (160-400); Red Blood Count 4.59 X10*6/uL (4.20-5.50); Red Cell Distribution Width 12.6 % (11.0-16.0); White Blood Count 10.1 X10*3/uL (4.8-10.8)
== END 2020-10-22 09:20 | disposition home or self-care (01) ==
LOC: HO.LABR 09:19
PROVIDERS: Visit Provider Psychiatry & Neurology Psychiatry
DX: Z51.81 Encounter for therapeutic drug level monitoring (principal); Z79.899 Other long term (current) drug therapy
CPT/HCPCS: 36415; 85025

== ENCOUNTER 2020-10-29 06:46 | Day surgery (SDC) | payer MEDICAID, SELFPAY ==
[2020-10-24 09:49] VITALS: BMI 30.2
--- NOTE | 2020-10-26 09:10 | P.CONAN_ITS ---
Documented by User: Cindy Garces 10/26/20 09:12 HPI - Anesthesia Eval Consult details Narrative: 44yo F for Left Breast Biopsy Needle Localization Mult ECT at [facility] Active Problems Active Problems: All Active Problems (Updated 10/03/20 @ 09:10 by Agus Reynoso MD) Abnormal ultrasound of breast (Acute) Abnormal mammogram of left breast (Acute) Lipoma of neck (Acute) Lipoma of back (Acute) Hypothyroidism (Acute) Encounter for medication monitoring (Acute) Abnormal EEG (Acute) OCD (obsessive compulsive disorder) (Acute) Bipolar 1 disorder, mixed (Acute) Past Medical History Medical History (Updated 10/29/20 @ 08:12 by Radha Omer) Bipolar 1 disorder, mixed Hypothyroidism Major depression OCD (obsessive compulsive disorder) BETH on CPAP Surgical History Surgical History (Updated 10/29/20 @ 07:59 by Radha Omer) History of electroconvulsive therapy History of hysterectomy Social History Social History Alcohol intake: never Smoking Status: Former smoker Packs Per Day: 1 Cigarettes Per Day: 20.0 Years Smoked: 15 Second Hand Smoke Exposure: No Advance Directives: No Advance Directives Information Provided: No Advance Directives on File: No Meds Allergies Allergy/AdvReac Type Severity Reaction Status Date / Time aripiprazole Allergy Mild Unknown Verified 10/12/20 11:54 bupropion AdvReac Unknown Verified 10/12/20 11:54 divalproex sodium AdvReac Unknown Verified 10/12/20 11:54 [From Depakote] risperidone AdvReac Unknown Verified 10/12/20 11:54 Home Medications Medication Instructions Recorded Confirmed Last Taken Type benztropine 0.5 mg PO TID 08/13/20 10/24/20 08/13/20 History clozapine [Clozaril] 100 mg PO DAILY 08/13/20 10/24/20 08/13/20 History ergocalciferol (vitamin D2) 1,250 mcg PO TU@0900 08/13/20 10/24/20 08/07/20 History [Vitamin D2] lamotrigine [Lamictal] 100 mg PO DAILY 08/13/20 10/24/20 08/13/20 History propranolol 20 mg PO BEDTIME 08/13/20 10/24/2008/12/20 History quetiapine 25 mg PO BEDTIME 08/13/20 10/24/20 08/12/20 History quetiapine [Seroquel] 25 mg PO DAILY PRN 08/13/20 10/24/20 Unknown History Exam Exam Date and Time: October 26, 2020 0910 Height,Weight and Vital Signs: Height 5 ft 2 in Weight 74.984 kg Pertinent Lab Results Pertinent Lab Results: Laboratory Tests 07/23/20 10/22/20 10:05 09:38 WBC 10.1 Hgb 13.7 Hct 40.9 Plt Count 410 H Sodium 138 Potassium 4.6 Chloride 105 Carbon Dioxide 23 BUN 10 Creatinine 0.74 Narrative Narrative: EKG 07/2020 Sinus rhythm with marked sinus arrhythmia Otherwise normal ECG When compared with ECG of 17-JUN-2020 15:54, No significant change was found Assessment and Plan Assessment Anesthesia Assessment: Chart Reviewed Documented by User: Rahda Omer 10/29/20 08:20 PMFSH Past Medical History Medical History (Updated 10/29/20 @ 08:12 by Radha Omer) Bipolar 1 disorder, mixed Hypothyroidism Major depression OCD (obsessive compulsive disorder) BETH on CPAP Family History Family history of problems with anesthesia: No Surgical History Surgical History (Updated 10/29/20 @ 07:59 by Radha Oemr) History of electroconvulsive therapy History of hysterectomy History of Problems with Anesthesia: Yes (Awareness under anesthesia with ECT) Social History Social History Alcohol intake: never Smoking Status: Former smoker Packs Per Day: 1 Cigarettes Per Day: 20.0 Years Smoked: 15 Second Hand Smoke Exposure: No Advance Directives: No Advance Directives Information Provided: No Advance Directives on File: No Meds Allergies Allergy/AdvReac Type Severity Reaction Status Date / Time aripiprazole Allergy Mild Unknown Verified 10/12/20 11:54 bupropion AdvReac Unknown Verified 10/12/20 11:54 divalproex sodium AdvReac Unknown Verified 10/12/20 11:54 [From Depakote] risperidone AdvReac Unknown Verified 10/12/20 11:54 Active Medications: Propanol and benztropine d/luz marina per caregiver Home Medications Medication Instructions Recorded Confirmed Last Taken Type benztropine 0.5 mg PO TID 08/13/20 10/24/20 08/13/20 History clozapine [Clozaril] 100 mg PO DAILY 08/13/20 10/24/20 08/13/20 History ergocalciferol (vitamin D2) 1,250 mcg PO TU@0900 08/13/20 10/24/20 08/07/20 History [Vitamin D2] lamotrigine [Lamictal] 100 mg PO DAILY 08/13/20 10/24/20 08/13/20 History propranolol 20 mg PO BEDTIME 08/13/20 10/24/20 08/12/20 History quetiapine 25 mg PO BEDTIME 08/13/20 10/24/20 08/12/20 History quetiapine [Seroquel] 25 mg PO DAILY PRN 08/13/20 10/24/20 Unknown History Exam Height,Weight and Vital Signs: Vital Signs Temp Pulse Resp BP Pulse Ox 10/29/20 07:24 97.4 F 85 20 114/71 100 Airway Mallampati Class: II TM Dist: >3cm Neck ROM: Full Heart: RRR Lungs: CTAB Assessment and Plan Assessment Anesthesia Assessment: Anesthesia Plan Discussed and Chart Reviewed Final Anesthetic Review NPO: Yes ASA Class: III Final Preanesthetic Review: No Changes in Pt Med Stat, Meds/Allgs Chart Reviewed, Consent Obtained/Reviewed and Anes Risks/Benef Reviewed Patient Risk: Intermediate Procedure Risk: Low Assessment/Block/Sedation in SS: Assess/Block/Sedation-SS Anesthetic Plan Anesthetic Plan: GA Disposition: Standard PACU
[2020-10-29] VITALS (8 sets, daily range): BP systolic 114–151; BP diastolic 71–92; PULSE 75–91; RESP 16–20; TEMP 36.1–36.3; O2SAT 98–100
--- NOTE | ~2020-10-29 | US_ITS ---
EXAMINATION: US ULTRASOUND-GUIDED NEEDLE LOCALIZATION BREAST, LEFT NEEDLE LOCALIZATION SPECIMEN RADIOGRAPH FROM THE LEFT BREAST CLINICAL INFORMATION: Complex sclerosing lesion mid outer left breast on stereotactic biopsy. COMPARISON: Mammography 08/30/2020, diagnostic mammography and left breast ultrasound 10/02/2020, stereotactic biopsy left breast 10/08/2020. TECHNIQUE NEEDLE LOC: The hospital mammography unit for planned needle localization is unexpectedly inoperative. Management options discussed with Dr. Reynoso. It was decided to perform ultrasound-guided localization of the biopsy site hematoma. Proper informed consent is obtained from the patient after discussion of the procedure, potential risks and complications, and alternatives including declining the procedure today. Patient was given an opportunity for questions. The patient appeared to understand. The patient consented to the procedure and signed the consent form. GUIDANCE: Real time ultrasound guidance APPROACH: Lateral Medial TARGET: Hematoma 3:00 position mid breast 1.6 x 1.4 cm. Biopsy clip marker is not visible with certainty. ANESTHESIA: 8 cc lidocaine 1% LOCALIZATION MARKER: [place] M[employer] 7.5 cm in length. Localization needle placed through center of the hematoma with wire hooked just beyond the biopsy cavity. The skin is prepped and local anesthesia administered. The needle is positioned and position assessed with real time ultrasound. The wire is hooked into position. Sterling needle protector placed. The patient tolerated the procedure well and had no immediate complication. Procedure discussed with Dr. Reynoso. TECHNIQUE SPECIMEN RADIOGRAPH: Two radiographs of the excised breast tissue is performed. FINDINGS SPECIMEN RADIOGRAPH: The initial specimen shows the needle and hookwire are delivered intact. The biopsy clip marker is not identified in the specimen. A second specimen radiograph of gauze retrieved from the surgical bed with palpable metallic fragment seen consistent with the clip marker. Results communicated with Dr. Agus Reynoso. US/US breast needle loc LT IMPRESSION: Status post ultrasound-guided left breast needle localization with wire hooked into position. Postoperative specimen radiograph obtained.
--- NOTE | 2020-10-29 07:27 | MHC.SHP ---
Pre-Procedural Eval Section A The patient is an INPATIENT: No Changes since office visit: Yes Patient answered all questions; No Cold of Flu in the past 2 weeks, No New Medical Problems and No Changes in Medication The History & Physical has been completed within 30 days and I have reviewed it.: Yes Section B Chief Complaint: Abnormal mammogram of left breast Allergies: Allergies Allergy/AdvReac Type Severity Reaction Status Date / Time aripiprazole Allergy Mild Unknown Verified 10/12/20 11:54 bupropion AdvReac Unknown Verified 10/12/20 11:54 divalproex sodium AdvReac Unknown Verified 10/12/20 11:54 [From Depakote] risperidone AdvReac Unknown Verified 10/12/20 11:54 Plan Diagnosis/Plan: Unchanged I have reviewed the history and physical and performed a pertinent physical examination on my patient. No changes have occurred unless specified.
[2020-10-29] MEDS: Lactated Ringers 1,000 ML 100 ML IVCONT (07:53)
--- NOTE | 2020-10-29 08:15 | PC.NURSE ---
Needle loc delayed per radiology d/t issues with machine not working. Called into OR to make RN & Dr Reynoso aware.
--- NOTE | 2020-10-29 08:35 | PC.NURSE ---
Delayed do to technical errors with machine for needle loc procedure.
--- NOTE | 2020-10-29 09:24 | PC.NURSE ---
Per [facility], radiology & DR leiva discussed proceeding with needle loc under ultrasound guidance. ELECTRICIAN SUPERVISOR & OR desk notified
--- NOTE | 2020-10-29 11:38 | PM.OP ---
Brief Operative Note Date of Service: 10/29/20 <REGAN Neumann Last Filed: 10/29/20 11:40> Pre-op diagnosis: sclerosing lesion left breast <REGAN Neumann Last Filed: 10/29/20 11:40> Post-op diagnosis: same <REGAN Neumann Last Filed: 10/29/20 11:40> Procedure: left breast lumpectomy with needle localization <REGAN Neumann Last Filed: 10/29/20 11:40> Surgeon: JENNIFER CELESTIN MD <REGAN Neumann Last Filed: 10/29/20 11:40> Anesthesia: GLMA <REGAN Neumann Last Filed: 10/29/20 11:40> Senior Qa Engineer: Garima Mcginnis <REGAN Neumann Last Filed: 10/29/20 11:40> Estimated blood loss (mL): 15 <REGAN Neumann Last Filed: 10/29/20 11:40> Pathology: other (left breast lumpectomy) <REGAN Neumann Last Filed: 10/29/20 11:40> Condition: stable <REGAN Neumann Last Filed: 10/29/20 11:40> Disposition: PACU <REGAN Neumann Last Filed: 10/29/20 11:40>
--- NOTE | 2020-10-29 11:42 | W.PM.OPN ---
Operative Note Operative Note Date of Service: 10/29/20 Narrative: Preoperative diagnosis: Sclerosing lesion left breast Postoperative diagnosis: Same Procedure: Left breast lumpectomy with needle localization Surgeon: Agus Reynoso MD Cup Trimming Machine Operator: Garima Mcginnis PA-C Anesthesia: General LMA Indications for procedure: 44-year-old female presenting with an abnormal mammogram which revealed new density in the breast the upper outer quadrant. Subsequent biopsy revealed a sclerosing lesion. Patient returns today for a wide excision to assure complete removal. Operative findings: Biopsy hematoma found within the specimen. Marking clip found outside of the specimen and sent as separate specimen. Specimen: Left breast lumpectomy, metal marking clip Estimated blood loss: 15 mls Procedure details: Patient was brought to the OR and placed in a supine position. After administering general anesthesia, the left breast was prepped with ChloraPrep draped in a sterile fashion. A surgical time-out was called and the consent confirmed. Preoperative antibiotics were administered and the dye boots were in place. Local anesthesia consisting of 0.25% Sensorcaine with epinephrine was then infiltrated around the localizing needle. Curvilinear incision was made around upper portion of the nipple areolar complex and carried down through subcutaneous tissue. Superior and inferior skin flaps were then created. A core of tissue surrounding the needle was then dissected using a combination of sharp and electrocautery dissection. Every attempt was made to dissect wide of the localizing wire to assure complete removal of the specimen. The specimen was then marked with a long suture on the lateral margin, short suture on the superior margin and a loop suture in the deep margin. Specimen was sent to Radiology department for specimen x-ray followed by gross pathology. A small metal clip was found outside of the specimen in the incision which appeared consistent with a marking clip. This was sent as a separate specimen to the radiology department. After assuring complete removal of the specimen, the wounds were checked for hemostasis. A single vessel was found to be bleeding was ligated with 3-0 Polysorb suture. Wounds were irrigated with saline and suctioned dry. Deep breast tissue was then reapproximated using interrupted 3-0 Polysorb sutures. Dermis was reapproximated using interrupted 3-0 Polysorb sutures. Skin was then closed using a running subcuticular 4-0 Polysorb suture. Steri-Strips 2 x 2 gauze and Tegaderm were then applied. The patient tolerated the procedure well. Sponge, instrument, and needle counts reported as correct. The patient was transferred to PACU in stable condition.
== END 2020-10-29 13:56 | disposition home or self-care (01) ==
PROVIDERS: PCP Internal Medicine; Visit Provider Surgery
PROC: (CPT 19301; principal; 2020-10-29 09:10)
DX: N60.82 Other benign mammary dysplasias of left breast (principal); N60.12 Diffuse cystic mastopathy of left breast; G47.33 Obstructive sleep apnea (adult) (pediatric)
CPT/HCPCS: 19301; 19285; 88307; 88329; A4648; J0690; J1100; J1885; J2250; J2370; J2405; J3010

== ENCOUNTER 2020-10-30 09:30 | Outpatient (REF) | payer MEDICAID, SELFPAY ==
[2020-10-30 10:00] LABS: MANUAL DIFF FLAG NO
[2020-10-30 10:06] LABS: Basophils Percent Auto 0.2 % (0-2); Hematocrit 38.7 % (37-47); Hemoglobin 12.4 g/dl (12.0-16.0); Imm Gran Abs Auto 0.02 X10*3/uL (0.00-0.03); Imm Gran Pct Auto 0.2 % (0.0-0.4); Lymphocytes Absolute Auto 2.7 X10*3/uL (1.2-4.9); Mean Corpuscular Volume 90.4 fL (80-98); Mean Platelet Volume 10.7 fL (9.4-12.3); Monocytes Absolute Auto 0.9 X10*3/uL (0.1-1.2); Monocytes Percent Auto 8.9 % (2-11); Neut%MD 65.7 %; Neutrophils Percent Auto 65.7 % (45-73); Platelet Count 369 X10*3/uL (160-400); Red Blood Count 4.28 X10*6/uL (4.20-5.50); Red Cell Distribution Width 12.9 % (11.0-16.0); WBCANC 10.6 X10*3/uL; White Blood Count 10.6 X10*3/uL (4.8-10.8)
== END 2020-10-30 09:31 | disposition home or self-care (01) ==
LOC: HO.LABR 09:30
PROVIDERS: PCP Internal Medicine; Visit Provider Psychiatry & Neurology Psychiatry
DX: Z51.81 Encounter for therapeutic drug level monitoring (principal)
CPT/HCPCS: 36415; 85025; 85048

== ENCOUNTER 2020-10-30 09:58 | Outpatient (REF) | payer MEDICAID, SELFPAY | END 2020-10-30 09:59 | disposition home or self-care (01) | LOC: HO.LAB 09:58 | PROVIDERS: Visit Provider Internal Medicine | DX: Z20.822 Contact with and (suspected) exposure to COVID-19 (principal) | CPT/HCPCS: 36415; C9803; U0003; U0005 ==

== ENCOUNTER 2020-11-05 11:29 | Outpatient (REF) | payer MEDICAID, SELFPAY ==
[2020-11-05 12:28] LABS: Basophils Percent Auto 0.2 % (0-2); Hematocrit 37.4 % (37-47); Hemoglobin 12.2 g/dl (12.0-16.0); Imm Gran Abs Auto 0.03 X10*3/uL (0.00-0.03); Imm Gran Pct Auto 0.3 % (0.0-0.4); Lymphocytes Absolute Auto 1.5 X10*3/uL (1.2-4.9); Lymphocytes Percent Auto 16.6 % (20-40); MANUAL DIFF FLAG NO; Mean Corpuscular HGB Conc 32.6 g/dl (31.0-35.0); Mean Corpuscular Hemoglobin 29.8 pg (27.0-33.0); Mean Corpuscular Volume 91.2 fL (80-98); Mean Platelet Volume 10.7 fL (9.4-12.3); Monocytes Absolute Auto 0.8 X10*3/uL (0.1-1.2); Neut%MD 73.9 %; Neutrophils Absolute Auto 6.7 X10*3/uL (2.0-8.3); Neutrophils Percent Auto 73.9 % (45-73); Platelet Count 402 X10*3/uL (160-400); Red Cell Distribution Width 12.9 % (11.0-16.0)
== END 2020-11-05 11:30 | disposition home or self-care (01) ==
LOC: HO.LABR 11:29
PROVIDERS: Visit Provider Psychiatry & Neurology Psychiatry
DX: Z51.81 Encounter for therapeutic drug level monitoring (principal)
CPT/HCPCS: 36415; 85025; 85048

== ENCOUNTER → 2020-11-08 15:05 | Outpatient (BNVA) | payer MEDICAID, SELFPAY | PROVIDERS: PCP Internal Medicine; Visit Provider Surgery | DX: R92.8 Other abnormal and inconclusive findings on diagnostic imaging of breast (principal) | CPT/HCPCS: 99212 ==

== ENCOUNTER → 2020-11-26 10:31 | Outpatient (BNVA) | payer MEDICAID, SELFPAY | PROVIDERS: PCP Internal Medicine; Referring Provider Internal Medicine; Visit Provider Internal Medicine ==

== ENCOUNTER 2020-11-28 09:51 | Outpatient (REF) | payer MEDICAID, SELFPAY ==
[2020-11-28 11:21] LABS: Free T4 (Free Thyroxine) 1.13 ng/dL (0.71-1.85); Thyroid Stimulating Hormone 0.44 uIU/mL (0.32-4.0); Vitamin D 25-OH Total 27.9 ng/mL (>30)
[2020-11-29 06:37] LABS: Triiodothyronine T3 Total 71 ng/dL (76-181)
[2020-11-29 09:51] LABS: Thyroglobulin Antibodies 13 IU/mL (< or = 1); Thyroid Peroxidase Antibodies 6 IU/mL (<9)
== END 2020-11-28 09:52 | disposition home or self-care (01) ==
LOC: HO.LAB 09:51
PROVIDERS: PCP Internal Medicine; Visit Provider Internal Medicine
DX: E03.9 Hypothyroidism, unspecified (principal); E55.9 Vitamin D deficiency, unspecified
CPT/HCPCS: 36415; 82306; 84439; 84443; 84480; 86376; 86800

== ENCOUNTER → 2021-01-02 08:41 | Outpatient (BNVA) | payer MEDICAID, SELFPAY | PROVIDERS: PCP Internal Medicine; Visit Provider Internal Medicine ==

== ENCOUNTER → 2021-02-12 10:22 | Outpatient (BNVA) | payer MEDICAID, SELFPAY | PROVIDERS: PCP Internal Medicine; Referring Provider Internal Medicine; Visit Provider Psychiatry & Neurology Neurology | DX: G47.33 Obstructive sleep apnea (adult) (pediatric) (principal); Z99.89 Dependence on other enabling machines and devices | CPT/HCPCS: 99202 ==

== ENCOUNTER 2021-02-13 13:07 | Emergency (ER) | payer MEDICAID, SELFPAY ==
--- NOTE | 2021-02-13 13:19 | ED_ITS ---
HPI - Psych General Chief Complaint: Psychiatric Symptoms Stated Complaint: CRISIS Time Seen by Provider: 02/13/21 13:19 Source: patient and EMS Mode of arrival: EMS Limitations: other (Dariela is very withdrawn with a flat affect) History of Present Illness MD complaint: feels depressed and anxiety Onset (ago): day(s) ( a while ) Duration: getting worse History of same: Yes Relieving factors: none Exacerbating factors: none Context: significant life stressor Associated psychiatric symptoms: depression Associated symptoms: other (states sometimes but not today her arms and legs tingle, she also c/o walking 45 minutes a day which is a lot for her) Treatments prior to arrival: none Related Data Home Medications Medication Instructions Recorded Confirmed cholecalciferol (vitamin D3) 25 25 mcg PO DAILY 11/26/20 02/13/21 mcg (1,000 unit) capsule clozapine 100 mg tablet 200 mg PO BID tab 11/26/20 02/13/21 escitalopram oxalate 20 mg tablet 30 mg PO DAILY tab 11/26/20 02/13/21 lamotrigine 100 mg tablet 100 mg PO DAILY tab 11/26/20 02/13/21 clozapine 25 mg PO BID 02/13/21 02/13/21 diazepam 5 mg PO BID PRN 02/13/21 02/13/21 minocycline 100 mg PO BID 02/13/21 02/13/21 Previous Rx's Medication Instructions Recorded levothyroxine [Synthroid] 100 mcg PO DAILY #10 tab 08/31/20 Allergies Allergy/AdvReac Type Severity Reaction Status Date / Time aripiprazole Allergy Mild Unknown Verified 01/02/21 09:21 bupropion AdvReac Unknown Verified 01/02/21 09:21 divalproex sodium AdvReac Unknown Verified 01/02/21 09:21 [From Depakote] risperidone AdvReac Unknown Verified 01/02/21 09:21 Review of Systems Review of Systems: Constitutional : No Fever, No Chills ENT/Mouth : No Ear Pain, No Nasal Congestion, No sore throat Eyes: No Eye Pain, No Swelling, No Redness Cardiovascular : No Chest Pain, No SOB Respiratory : No Cough, No Sputum, No Dyspnea Gastrointestinal : No Nausea, No Vomiting, No Diarrhea, No Hematochezia, No Melena Genitourinary : No Dysuria, No Urinary Frequency, No Hematuria Musculoskeletal : No Myalgias Skin : No Skin Lesions, No rash Neuro : No Weakness, No Numbness, No Paresthesias, No Dizziness, No Headache Psych : positive Anxiety, positive Depression, no SI/HI Heme/Lymph: No Lymphadenopathy Endocrine : No Polyuria, No Polydipsia All other systems reviewed and are negative [facility] Past Medical History Attestation statement: The following information was validated with the patient. Medical History Bipolar 1 disorder, mixed Hypothyroidism Major depression OCD (obsessive compulsive disorder) BETH on CPAP Vitamin D deficiency Surgical History History of electroconvulsive therapy History of hysterectomy Hx of breast surgery Social History Social History Are you a primary career discovery teacher to a significant other at home: No Do you presently have visiting nurse or other home services: No Alcohol intake: never Cigarette Packs Per Day: 1 Cigarettes Per Day: 20.0 Years Smoked: 15 Second Hand Smoke Exposure: No Advance Directives: No Advance Directives Information Provided: No Patient : No Physical Exam Vital Signs: Vital Signs: Last Vital Signs Temp 97.2 F 02/13/21 13:45 Pulse 88 02/13/21 13:45 Resp 16 02/13/21 13:45 BP 140/81 H 02/13/21 13:45 Pulse Ox 100 02/13/21 13:45 Body Mass Index 27.3 Appearance: Alert. Oriented X3. No acute distress. Flat affect, withdrawn Eyes: Pupils equal, round and reactive to light. Appears to have been crying ENT: Pharynx normal. Neck: Normal inspection. Neck supple. CVS: Normal heart rate and rhythm. Pulses normal. Respiratory: No respiratory distress. Breath sounds normal. Abdomen: Soft and non-tender. Skin: Skin warm and dry. Normal skin color. Normal skin turgor. Extremities: No lower extremity edema. No calf ttp Neuro: Oriented X 3. No motor deficit. No sensory deficit. Psych: pos depression, pos anxiety, no SI/HI, I just don't want to live like this anymore. Course Course Course Narrative: Physician observation started at 320pm Patient placed in physician observation because the patient needed more time for BHN evaluation and to determine the need for psych admission. At the time observation was started the patient's vitals were stable, patient is alert and oriented but withdrawn, Neuro: nonfocal, CV RRR, Lungs clear signed out pending BHN consult MDM - Psych MDM Narrative Medical decision making narrative: 45 yo female with hx of BETH, depression requiring ECT, bipolar comes in with complaint of depression, doesn't want to live like this she is very withdrawn at this time will need labs, EKG, BHN consult Lab Data Result diagrams: 02/13/21 14:19 02/13/21 14:19 Labs: Lab Results 02/13/21 02/13/21 02/13/21 Range/Units 14:03 14:07 14:19 WBC 8.0 (4.8-10.8) X10*3/uL RBC 4.54 (4.20-5.50) X10*6/uL Hgb 13.4 (12.0-16.0) g/dl Hct 40.2 (37-47) % MCV 88.5 (80-98) fL MCH 29.5 (27.0-33.0) pg MCHC 33.3 (31.0-35.0) g/dl RDW 13.0 (11.0-16.0) % Plt Count 316 (160-400) X10*3/uL MPV 10.3 (9.4-12.3) fL Immature Gran % (Auto) 0.5 H (0.0-0.4) % Neut % (Auto) 59.6 (45-73) % Lymph % (Auto) 26.9 (20-40) % [place] % (Auto) 9.7 (2-11) % Eos % (Auto) 2.9 (0-4) % Baso % (Auto) 0.4 (0-2) % Lymph # (Auto) 2.2 (1.2-4.9) X10*3/uL [place] # (Auto) 0.8 (0.1-1.2) X10*3/uL Eos # (Auto) 0.2 (0.0-0.4) X10*3/uL Baso # (Auto) 0.0 (0.0-0.2) X10*3/uL Abs Immat Gran (auto) 0.04 H (0.00-0.03) X10*3/uL Absolute Neuts (auto) 4.8 (2.0-8.3) X10*3/uL Absolute Nucleated RBC 0.000 (0.0-0.012) X10*3/uL Nucleated RBC % (auto) 0.0 (0.0-0.2) /100WBC Sodium (135-145) mmol/L Potassium (3.3-5.1) mmol/L Chloride (96-108) mmol/L Carbon Dioxide (22-29) mmol/L Anion Gap (12-20) BUN (9-16) mg/dL Creatinine (0.5-1.4) mg/dL Estim Creat Clear Calc Estimated GFR Random Glucose (60-115) mg/dL Calcium (8.4-10.2) mg/dL Total Bilirubin (0.0-1.0) mg/dL Direct Bilirubin (0.0-0.5) mg/dL AST (5-31) U/L ALT (0-31) U/L Alkaline Phosphatase (39-117) U/L Total Creatine Kinase (26-140) U/L Total Protein (6.5-8.0) g/dL Albumin (3.5-5.0) g/dL TSH (0.32-4.0) uIU/mL Urine Opiates Screen Not Detected (Not Detect) Ur Barbiturates Screen Not Detected (Not Detect) Ur Phencyclidine Scrn Not Detected (Not Detect) Ur Amphetamines Screen Not Detected (Not Detect) U Benzodiazepines Scrn POSITIVE H (Not Detect) Urine Cocaine Screen Not Detected (Not Detect) U Marijuana (THC) Screen Not Detected (Not Detect) COVID-19 ([facility]INA) Negative (Negative) COVID-19 Clin Com See Note 02/13/21 02/13/21 Range/Units 14:19 14:19 WBC (4.8-10.8) X10*3/uL RBC (4.20-5.50) X10*6/uL Hgb (12.0-16.0) g/dl Hct (37-47) % MCV (80-98) fL MCH (27.0-33.0) pg MCHC (31.0-35.0) g/dl RDW (11.0-16.0) % Plt Count (160-400) X10*3/uL MPV (9.4-12.3) fL Immature Gran % (Auto) (0.0-0.4) % Neut % (Auto) (45-73) % Lymph % (Auto) (20-40) % [place] % (Auto) (2-11) % Eos % (Auto) (0-4) % Baso % (Auto) (0-2) % Lymph # (Auto) (1.2-4.9) X10*3/uL [place] # (Auto) (0.1-1.2) X10*3/uL Eos # (Auto) (0.0-0.4) X10*3/uL Baso # (Auto) (0.0-0.2) X10*3/uL Abs Immat Gran (auto) (0.00-0.03) X10*3/uL Absolute Neuts (auto) (2.0-8.3) X10*3/uL Absolute Nucleated RBC (0.0-0.012) X10*3/uL Nucleated RBC % (auto) (0.0-0.2) /100WBC Sodium 140 (135-145) mmol/L Potassium 3.9 (3.3-5.1) mmol/L Chloride 107 (96-108) mmol/L Carbon Dioxide 25 (22-29) mmol/L Anion Gap 12 (12-20) BUN 14 (9-16) mg/dL Creatinine 0.85 (0.5-1.4) mg/dL Estim Creat Clear Calc 74.0 Estimated GFR > 60 Random Glucose 92 (60-115) mg/dL Calcium 9.6 D (8.4-10.2) mg/dL Total Bilirubin 0.4 (0.0-1.0) mg/dL Direct Bilirubin < 0.2 (0.0-0.5) mg/dL AST 14 (5-31) U/L ALT 13 (0-31) U/L Alkaline Phosphatase 94 D (39-117) U/L Total Creatine Kinase 80 (26-140) U/L Total Protein 6.8 (6.5-8.0) g/dL Albumin 4.3 (3.5-5.0) g/dL TSH 0.12 L (0.32-4.0) uIU/mL Urine Opiates Screen (Not Detect) Ur Barbiturates Screen (Not Detect) Ur Phencyclidine Scrn (Not Detect) Ur Amphetamines Screen (Not Detect) U Benzodiazepines Scrn (Not Detect) Urine Cocaine Screen (Not Detect) U Marijuana (THC) Screen (Not Detect) COVID-19 ([facility]INA) (Negative) COVID-19 Clin Com Discharge Plan Discharge Clinical Impression: Major depression Qualifiers: Major depression recurrence: recurrent Active/Remission status: remission status unspecified Qualified Code(s): F33.9 - Major depressive disorder, recurrent, unspecified Prescriptions: No Action levothyroxine [Synthroid] 100 mcg tablet 100 mcg PO DAILY Qty: 10 RF: 0 clozapine 25 mg Tablet 25 mg PO BID RF: 0 diazepam 5 mg Tablet 5 mg PO BID PRN (Reason: Anxiety) RF: 0 minocycline 100 mg Capsule 100 mg PO BID RF: 0 lamotrigine [Lamictal] 100 mg tablet 100 mg PO DAILY RF: 0 cholecalciferol (vitamin D3) 25 mcg (1,000 unit) capsule 25 mcg PO DAILY RF: 0 escitalopram oxalate 20 mg tablet 30 mg PO DAILY RF: 0 clozapine 100 mg tablet 200 mg PO BID RF: 0
[2021-02-13 13:45] VITALS: BP 140/81; PULSE 88; RESP 16; TEMP 36.2; O2SAT 100; BMI 27.3
--- NOTE | 2021-02-13 13:46 | ECG_ITS ---
Test Reason : MED CLEARANCE Blood Pressure : / mmHG Vent. Rate : 087 BPM Atrial Rate : 087 BPM P-R Int : 150 ms QRS Dur : 086 ms QT Int : 376 ms P-R-T Axes : 055 007 023 degrees QTc Int : 452 ms Normal sinus rhythm Normal ECG When compared with ECG of 10-JUL-2020 10:33, T wave amplitude has decreased in Anterior leads Referred By: Sara Ward Electronically Signed By:KATERIN PATEL
--- NOTE | 2021-02-13 13:51 | PHA.MEDREC ---
Pharmacy Consult ? Medication Reconciliation Pharmacy has completed the medication reconciliation.
[2021-02-13 14:26] LABS: MANUAL DIFF FLAG NO
[2021-02-13 14:27] LABS: Basophils Percent Auto 0.4 % (0-2); Eosinophils Absolute Auto 0.2 X10*3/uL (0.0-0.4); Eosinophils Percent Auto 2.9 % (0-4); Hematocrit 40.2 % (37-47); Hemoglobin 13.4 g/dl (12.0-16.0); Imm Gran Abs Auto 0.04 X10*3/uL (0.00-0.03); Imm Gran Pct Auto 0.5 % (0.0-0.4); Lymphocytes Absolute Auto 2.2 X10*3/uL (1.2-4.9); Lymphocytes Percent Auto 26.9 % (20-40); Mean Corpuscular HGB Conc 33.3 g/dl (31.0-35.0); Mean Corpuscular Hemoglobin 29.5 pg (27.0-33.0); Mean Corpuscular Volume 88.5 fL (80-98); Mean Platelet Volume 10.3 fL (9.4-12.3); Monocytes Absolute Auto 0.8 X10*3/uL (0.1-1.2); Monocytes Percent Auto 9.7 % (2-11); Neutrophils Absolute Auto 4.8 X10*3/uL (2.0-8.3); Neutrophils Percent Auto 59.6 % (45-73); Platelet Count 316 X10*3/uL (160-400); Red Blood Count 4.54 X10*6/uL (4.20-5.50)
[2021-02-13 14:43] LABS: COVID-19 Test Negative (Negative)
[2021-02-13 14:50] LABS: Alanine Aminotransferase 13 U/L (0-31); Albumin Level 4.3 g/dL (3.5-5.0); Alkaline Phosphatase 94 U/L (39-117); Anion Gap 12 (12-20); Aspartate Amino Transferase 14 U/L (5-31); Bilirubin Direct < 0.2 mg/dL (0.0-0.5); Bilirubin Total 0.4 mg/dL (0.0-1.0); Blood Urea Nitrogen 14 mg/dL (9-16); Calcium 9.6 mg/dL (8.4-10.2); Carbon Dioxide 25 mmol/L (22-29); Chloride 107 mmol/L (96-108); Estimated Glomerular Filt Rate > 60; Glucose Random 92 mg/dL (60-115); Potassium 3.9 mmol/L (3.3-5.1); Sodium 140 mmol/L (135-145); Total Protein 6.8 g/dL (6.5-8.0)
[2021-02-13 14:52] LABS: Amphetamine Screen Urine Not Detected (Not Detect); Barbiturates, Urine Not Detected (Not Detect); Benzodiazepines Screen Urine POSITIVE (Not Detect); Cannabinoid Screen Urine Not Detected (Not Detect); Cocaine Screen Urine Not Detected (Not Detect); Opiate Screen Urine Not Detected (Not Detect); Phencyclidine Screen Urine Not Detected (Not Detect)
[2021-02-13 15:09] LABS: TSH reflex Free T4 0.12 uIU/mL (0.32-4.0)
[2021-02-13 15:41] LABS: Free T4 (Free Thyroxine) 1.12 ng/dL (0.71-1.85)
--- NOTE | 2021-02-13 17:12 | MHC.CARE ---
Pt is a 45 y/o bilingual, single, , female who presented to the ED from [facility] ([facility]) for low blood pressure and an erratic heartbeat. Pt was brought to the POD for a crisis evaluation. Collateral contact was made with Pt?s cousin who advised CARE Team that pt is presenting at her baseline. Pt presents as anxious and depressed and negative thinking at her baseline and will at times experience cycles of depression and anxiety that are greater than those she experiences at her baseline. Pt?s cousin stated [facility]. Collateral contact was made with staff from [facility] ([facility]). They reinforced that pt is negative thinking, depressed, and anxious at her baseline. Pt has been having a hard time adjusting to being in respite, having moved there from her cousin?s house some time ago. Pt presented in a similar fashion after moving from her Mother?s home. CARE Team was advised that [facility] has clinicians available on site for pt?s needs and that she isn?t in crisis. It was explained that Pt was sent to this facility because her blood pressure was low and her heart rate would spike then rapidly drop. Pt was sent for medical reasons, not for a crisis eval. Met with pt who stated she was depressed and anxious. Pt has no thoughts of harm to self or others stating that she is ?too scared to do anything like that?. Pt has no thoughts of , desire to not wake up, and stated she ?Just want to feel better? and ?It?s (Depression and anxiety) like living a nightmare.? Pt denies any A/V hallucinations, is alert and oriented x4, and is engaged with the conversation. Pt is help seeking, she is uncertain of what help she needs, however. Recommendation is for pt to be discharged back to [facility] where she can continue her treatment in a supportive environment. This recommendation was discussed with and agreed upon by Dr. Nagel.
== END 2021-02-13 17:59 | disposition home or self-care (01) ==
PROVIDERS: Emergency Medicine; Emergency Provider Emergency Medicine Emergency Medical Services; PCP Internal Medicine
DX: F33.9 Major depressive disorder, recurrent, unspecified (principal); F41.9 Anxiety disorder, unspecified; R00.0 Tachycardia, unspecified; E03.9 Hypothyroidism, unspecified; Z79.899 Other long term (current) drug therapy; Z20.822 Contact with and (suspected) exposure to COVID-19
CPT/HCPCS: 36415; 80048; 80076; 80307; 82550; 84439; 84443; 85025; 87635; 93005; 99284; 99285

== ENCOUNTER 2021-02-20 13:29 | Outpatient (REF) | payer MEDICAID, SELFPAY ==
--- NOTE | ~2021-02-20 | US_ITS ---
EXAMINATION: US SOFT TISSUE OF THE NECK CLINICAL INFORMATION: Mobile nodule just below nape of neck. COMPARISON: CT soft tissue neck 09/17/2020. TECHNIQUE: Linear transducer grayscale and color Doppler examination of the posterior medial neck. FINDINGS: Palpable abnormality corresponds to a lymph node. This measures 1.5 x 1.1 x 0.7 cm in sagittal AP and transverse dimension and is slightly enlarged. This demonstrates normal ultrasound morphology and flow. US/US soft tiss head and/or neck IMPRESSION: Palpable abnormality corresponds to a slightly enlarged lymph node. Management should be determined on a clinical basis.
== END 2021-02-20 13:30 | disposition home or self-care (01) ==
LOC: HO.US 13:29
PROVIDERS: Visit Provider Emergency Medicine
DX: R22.1 Localized swelling, mass and lump, neck (principal)
CPT/HCPCS: 76536

== ENCOUNTER 2021-04-03 09:17 | Outpatient (REF) | payer MEDICAID, SELFPAY ==
[2021-04-03 12:24] LABS: Free T4 (Free Thyroxine) 1.04 ng/dL (0.71-1.85); Thyroid Stimulating Hormone 0.31 uIU/mL (0.32-4.0)
== END 2021-04-03 09:18 | disposition home or self-care (01) ==
LOC: HO.LAB 09:17
PROVIDERS: Internal Medicine; PCP Internal Medicine; Visit Provider Nurse Practitioner Gerontology
DX: E03.9 Hypothyroidism, unspecified (principal); E55.9 Vitamin D deficiency, unspecified
CPT/HCPCS: 36415; 84439; 84443; 99212

== ENCOUNTER 2021-04-18 18:31 | Emergency (ER) | payer MEDICAID, SELFPAY ==
--- NOTE | 2021-04-18 | ECG_ITS ---
Test Reason : MEDICAL CLEARANCE Blood Pressure : / mmHG Vent. Rate : 094 BPM Atrial Rate : 094 BPM P-R Int : 148 ms QRS Dur : 082 ms QT Int : 350 ms P-R-T Axes : 056 015 020 degrees QTc Int : 437 ms Normal sinus rhythm Normal ECG When compared with ECG of 13-FEB-2021 16:55, No significant change was found Referred By: Maddy Trejo Electronically Signed By:MALAIKA PARSON
[2021-04-18 18:53] VITALS: BP 129/88; PULSE 107; RESP 16; TEMP 37.1; O2SAT 100; BMI 27.2
[2021-04-18 20:02] LABS: MANUAL DIFF FLAG NO
[2021-04-18 20:04] LABS: Basophils Percent Auto 0.2 % (0-2); Hematocrit 38.1 % (37-47); Hemoglobin 12.7 g/dl (12.0-16.0); Imm Gran Abs Auto 0.03 X10*3/uL (0.00-0.03); Imm Gran Pct Auto 0.3 % (0.0-0.4); Lymphocytes Absolute Auto 2.2 X10*3/uL (1.2-4.9); Lymphocytes Percent Auto 23.5 % (20-40); Mean Corpuscular HGB Conc 33.3 g/dl (31.0-35.0); Mean Corpuscular Hemoglobin 29.8 pg (27.0-33.0); Mean Corpuscular Volume 89.4 fL (80-98); Mean Platelet Volume 10.8 fL (9.4-12.3); Monocytes Absolute Auto 0.9 X10*3/uL (0.1-1.2); Monocytes Percent Auto 9.7 % (2-11); Neutrophils Absolute Auto 6.3 X10*3/uL (2.0-8.3); Neutrophils Percent Auto 66.3 % (45-73); Platelet Count 308 X10*3/uL (160-400); Red Blood Count 4.26 X10*6/uL (4.20-5.50); Red Cell Distribution Width 13.3 % (11.0-16.0); White Blood Count 9.5 X10*3/uL (4.8-10.8)
[2021-04-18 20:38] LABS: Anion Gap 15 (12-20); Blood Urea Nitrogen 14 mg/dL (9-16); Calcium 9.5 mg/dL (8.4-10.2); Carbon Dioxide 23 mmol/L (22-29); Chloride 109 mmol/L (96-108); Creatinine Clr Calc Pharmacy 62.6; Estimated Glomerular Filt Rate 59; Glucose Random 93 mg/dL (60-115); Potassium 4.4 mmol/L (3.3-5.1); Sodium 143 mmol/L (135-145)
--- NOTE | 2021-04-18 20:38 | ED_ITS ---
HPI - Psych General Chief Complaint: Recheck/Abnormal Lab/Rx <Maddy Trejo NP - Last Filed: 04/19/21 02:35> Stated Complaint: abnormal labs <Maddy Trejo NP - Last Filed: 04/19/21 02:35> Time Seen by Provider: 04/18/21 21:36 <Maddy Trejo NP - Last Filed: 04/19/21 02:35> Source: patient <Maddy Trejo NP - Last Filed: 04/19/21 02:35> Mode of arrival: ambulatory <Maddy Trejo NP - Last Filed: 04/19/21 02:35> Limitations: altered mental status <Maddy Trejo NP - Last Filed: 04/19/21 02:35> History of Present Illness HPI Narrative: 45-year-old female presents for elevated clozapine levels of 1294. She also reports suicidal ideation without a plan. <Maddy Trejo NP - Last Filed: 04/19/21 02:35> MD complaint: suicidal ideation, feels depressed and altered mental status <Maddy Trejo NP - Last Filed: 04/19/21 02:35> Onset (ago): unknown <Maddy Trejo NP - Last Filed: 04/19/21 02:35> Duration: constant <Maddy Trejo NP - Last Filed: 04/19/21 02:35> History of same: Yes <Maddy Trejo NP - Last Filed: 04/19/21 02:35> Relieving factors: none <Maddy Trejo NP - Last Filed: 04/19/21 02:35> Associated psychiatric symptoms: depression and suicidal ideation <Maddy Trejo NP - Last Filed: 04/19/21 02:35> Associated symptoms: denies other symptoms <Maddy Trejo NP - Last Filed: 04/19/21 02:35> If self harm: admits thoughts of self harm <Maddy Trejo NP - Last Filed: 04/19/21 02:35> Related Data Home Medications: Home Medications Medication Instructions Recorded Confirmed cholecalciferol (vitamin D3) 25 25 mcg PO DAILY 11/26/20 04/03/21 mcg (1,000 unit) capsule clozapine 100 mg tablet 200 mg PO BID tab 11/26/20 04/03/21 escitalopram oxalate 20 mg tablet 30 mg PO DAILY tab 11/26/20 04/03/21 clozapine 25 mg tablet 25 mg PO BID 02/13/21 04/03/21 diazepam 5 mg tablet 5 mg PO BID PRN 02/13/21 04/03/21 quetiapine 25 mg tablet (Seroquel) 25 mg PO DAILY PRN 04/03/21 04/03/21 Previous Rx's Medication Instructions Recorded levothyroxine 75 mcg capsule 75 mcg PO DAILY #30 cap 04/03/21 <Maddy Trejo NP - Last Filed: 04/19/21 02:35> Allergies/Adverse Reactions: Allergies Allergy/AdvReac Type Severity Reaction Status Date / Time aripiprazole Allergy Mild Unknown Verified 04/18/21 19:03 bupropion AdvReac Unknown Verified 04/18/21 19:03 divalproex sodium AdvReac Unknown Verified 04/18/21 19:03 [From [facility]] risperidone AdvReac Unknown Verified 04/18/21 19:03 <Maddy Trejo NP - Last Filed: 04/19/21 02:35> Review of Systems Review of Systems: Constitutional: No Fever, No Chills ENT/Mouth: No Ear Pain, No Nasal Congestion, No sore throat Eyes: No Eye Pain, No Swelling, No Redness Cardiovascular: No Chest Pain, No SOB Respiratory: No Cough, No Sputum, No Dyspnea Gastrointestinal: No Nausea, No Vomiting, No Diarrhea, No Hematochezia, No Melena Genitourinary: No Dysuria, No Urinary Frequency, No Hematuria Musculoskeletal: No Myalgias Skin: No Skin Lesions, No rash Neuro: No Weakness, No Numbness, No Paresthesias, No Dizziness, No Headache Psych: No Anxiety, positive Depression, positive SI Heme/Lymph: No Lymphadenopathy Endocrine: No Polyuria, No Polydipsia <Maddy Trejo NP - Last Filed: 04/19/21 02:35> Yes all other systems are reviewed and are negative <Maddy Trejo NP - Last Filed: 04/19/21 02:35> [facility] Past Medical History Attestation statement: The following information was validated with the patient. <aMddy Trejo NP - Last Filed: 04/19/21 02:35> Source: old records reviewed <Maddy Trejo NP - Last Filed: 04/19/21 02:35> Medical History: Medical History Bipolar 1 disorder, mixed Hyperthyroidism Hypothyroidism Major depression OCD (obsessive compulsive disorder) BETH on CPAP Vitamin D deficiency <Maddy Trejo NP - Last Filed: 04/19/21 02:35> Surgical History: Surgical History History of electroconvulsive therapy History of hysterectomy Hx of breast surgery <Maddy Trejo NP - Last Filed: 04/19/21 02:35> Social History Social History: Social History Household Members: Other Household Members Other:: [facility]N Are you a primary occasional caregiver to a significant other at home: No Do you presently have visiting nurse or other home services: No Alcohol intake: never Cigarette Packs Per Day: 1 Cigarettes Per Day: 20.0 Years Smoked: 15 Second Hand Smoke Exposure: No Advance Directives: No Advance Directives Information Provided: Yes Patient : No <Maddy Trejo NP - Last Filed: 04/19/21 02:35> Physical Exam Vital Signs: Vital Signs: Last Vital Signs Temp 96.8 F 04/19/21 00:36 Pulse 77 04/19/21 00:36 Resp 16 04/19/21 00:36 BP 147/96 H 04/19/21 00:36 Pulse Ox 100 04/19/21 00:36 Body Mass Index 27.2 <Maddy Trejo NP - Last Filed: 04/19/21 02:35> Vital Signs: Last Vital Signs Temp 96.8 F 04/19/21 00:36 Pulse 77 04/19/21 00:36 Resp 16 04/19/21 00:36 BP 147/96 H 04/19/21 00:36 Pulse Ox 100 04/19/21 00:36 Body Mass Index 27.2 <Oneal Nagel MD - Last Filed: 04/19/21 07:23> Appearance: Alert. Oriented to self. Moderate emotional distress. Flat affect. Eyes: Pupils equal, round and reactive to light. ENT: Pharynx normal. Neck: Normal inspection. Neck supple. CVS: Normal heart rate and rhythm. Pulses normal. Respiratory: No respiratory distress. Breath sounds normal. Abdomen: Soft and nontender. Skin: Skin warm and dry. Normal skin color. Normal skin turgor. Extremities: No lower extremity edema. Moves all extremities against resistance. No indication of extra pyramidal symptoms. Neuro: No motor deficit. No sensory deficit. Cranial nerves 2-12 intact. <Maddy Trejo NP - Last Filed: 04/19/21 02:35> Course Course Course Narrative: Patient presents with elevated clozapine levels. Multiple discussions with on-call Psychiatry, patient's medications are being titrated. RN states that Psychiatry okays this patient to be discharged home, however I disagree with that part of the assessment as patient does have a flat affect and is reporting suicidal ideation. Will have patient stay and re-evaluate in the morning. While patient's clozapine levels are elevated, she is not neutropenic and her blood levels are within normal limits. Physician observation at this time. <Maddy Trejo NP - Last Filed: 04/19/21 02:35> Patient presents with elevated clozapine levels. Multiple discussions with on-call Psychiatry, patient's medications are being titrated. RN states that Psychiatry okays this patient to be discharged home, however I disagree with that part of the assessment as patient does have a flat affect and is reporting suicidal ideation. Will have patient stay and re-evaluate in the morning. While patient's clozapine levels are elevated, she is not neutropenic and her blood levels are within normal limits. Physician observation at this time. 0721: Physician observation ended at 0721. The patient is in a N program. The patient will be closely monitored for further side effects from clozaril toxicity. Exam: Lungs clear, CV RRR, Abd nontender, Neuro intact. Disposition is to return to residential. <Oneal Nagel MD - Last Filed: 04/19/21 07:23> MDM - Psych Differential Diagnosis Differential diagnosis: Likely acute psychosis and suicidal ideation <Maddy Trejo NP - Last Filed: 04/19/21 02:35> Medical Records Attestation: I reviewed the patient's medical records. <Maddy Trejo NP - Last Filed: 04/19/21 02:35> Lab Data Attestation: I reviewed the patient's lab results. <Maddy Trejo NP - Last Filed: 04/19/21 02:35> Result diagrams: : 04/18/21 19:59 04/18/21 19:59 <Maddy Trejo TECHNICAL APPLICATIONS SPECIALIST - Last Filed: 04/19/21 02:35> Labs: Lab Results 04/18/21 04/18/21 04/18/21 Range/Units 19:59 19:59 22:25 WBC 9.5 (4.8-10.8) X10*3/uL RBC 4.26 (4.20-5.50) X10*6/uL Hgb 12.7 (12.0-16.0) g/dl Hct 38.1 (37-47) % MCV 89.4 (80-98) fL MCH 29.8 (27.0-33.0) pg MCHC 33.3 (31.0-35.0) g/dl RDW 13.3 (11.0-16.0) % Plt Count 308 (160-400) X10*3/uL MPV 10.8 (9.4-12.3) fL Immature Gran % (Auto) 0.3 (0.0-0.4) % Neut % (Auto) 66.3 (45-73) % Lymph % (Auto) 23.5 (20-40) % Darke % (Auto) 9.7 (2-11) % Eos % (Auto) 0.0 (0-4) % Baso % (Auto) 0.2 (0-2) % Lymph # (Auto) 2.2 (1.2-4.9) X10*3/uL Darke # (Auto) 0.9 (0.1-1.2) X10*3/uL Eos # (Auto) 0.0 (0.0-0.4) X10*3/uL Baso # (Auto) 0.0 (0.0-0.2) X10*3/uL Abs Immat Gran (auto) 0.03 (0.00-0.03) X10*3/uL Absolute Neuts (auto) 6.3 (2.0-8.3) X10*3/uL Absolute Nucleated RBC 0.000 (0.0-0.012) X10*3/uL Nucleated RBC % (auto) 0.0 (0.0-0.2) /100WBC Sodium 143 (135-145) mmol/L Potassium 4.4 (3.3-5.1) mmol/L Chloride 109 H (96-108) mmol/L Carbon Dioxide 23 (22-29) mmol/L Anion Gap 15 (12-20) BUN 14 (9-16) mg/dL Creatinine 1.00 (0.5-1.4) mg/dL Estim Creat Clear Calc 62.6 Estimated GFR 59 Random Glucose 93 (60-115) mg/dL Calcium 9.5 (8.4-10.2) mg/dL Urine Opiates Screen Not Detected (Not Detect) Urine Fentanyl Screen Not Detected (Not Detect) Ur Barbiturates Screen Not Detected (Not Detect) Ur Phencyclidine Scrn Not Detected (Not Detect) Ur Amphetamines Screen Not Detected (Not Detect) U Benzodiazepines Scrn POSITIVE H (Not Detect) Urine Cocaine Screen Not Detected (Not Detect) U Marijuana (THC) Screen Not Detected (Not Detect) COVID-19 ([facility]) (Negative) COVID-19 Clin Com 04/18/21 Range/Units 22:26 WBC (4.8-10.8) X10*3/uL RBC (4.20-5.50) X10*6/uL Hgb (12.0-16.0) g/dl Hct (37-47) % MCV (80-98) fL MCH (27.0-33.0) pg MCHC (31.0-35.0) g/dl RDW (11.0-16.0) % Plt Count (160-400) X10*3/uL MPV (9.4-12.3) fL Immature Gran % (Auto) (0.0-0.4) % Neut % (Auto) (45-73) % Lymph % (Auto) (20-40) % Darke % (Auto) (2-11) % Eos % (Auto) (0-4) % Baso % (Auto) (0-2) % Lymph # (Auto) (1.2-4.9) X10*3/uL Darke # (Auto) (0.1-1.2) X10*3/uL Eos # (Auto) (0.0-0.4) X10*3/uL Baso # (Auto) (0.0-0.2) X10*3/uL Abs Immat Gran (auto) (0.00-0.03) X10*3/uL Absolute Neuts (auto) (2.0-8.3) X10*3/uL Absolute Nucleated RBC (0.0-0.012) X10*3/uL Nucleated RBC % (auto) (0.0-0.2) /100WBC Sodium (135-145) mmol/L Potassium (3.3-5.1) mmol/L Chloride (96-108) mmol/L Carbon Dioxide (22-29) mmol/L Anion Gap (12-20) BUN (9-16) mg/dL Creatinine (0.5-1.4) mg/dL Estim Creat Clear Calc Estimated GFR Random Glucose (60-115) mg/dL Calcium (8.4-10.2) mg/dL Urine Opiates Screen (Not Detect) Urine Fentanyl Screen (Not Detect) Ur Barbiturates Screen (Not Detect) Ur Phencyclidine Scrn (Not Detect) Ur Amphetamines Screen (Not Detect) U Benzodiazepines Scrn (Not Detect) Urine Cocaine Screen (Not Detect) U Marijuana (THC) Screen (Not Detect) COVID-19 ([facility]) Negative (Negative) COVID-19 Clin Com See Note <Maddy Trejo NP - Last Filed: 04/19/21 02:35> Lab Results 04/18/21 04/18/21 04/18/21 Range/Units 19:59 19:59 22:25 WBC 9.5 (4.8-10.8) X10*3/uL RBC 4.26 (4.20-5.50) X10*6/uL Hgb 12.7 (12.0-16.0) g/dl Hct 38.1 (37-47) % MCV 89.4 (80-98) fL MCH 29.8 (27.0-33.0) pg MCHC 33.3 (31.0-35.0) g/dl RDW 13.3 (11.0-16.0) % Plt Count 308 (160-400) X10*3/uL MPV 10.8 (9.4-12.3) fL Immature Gran % (Auto) 0.3 (0.0-0.4) % Neut % (Auto) 66.3 (45-73) % Lymph % (Auto) 23.5 (20-40) % Darke % (Auto) 9.7 (2-11) % Eos % (Auto) 0.0 (0-4) % Baso % (Auto) 0.2 (0-2) % Lymph # (Auto) 2.2 (1.2-4.9) X10*3/uL Darke # (Auto) 0.9 (0.1-1.2) X10*3/uL Eos # (Auto) 0.0 (0.0-0.4) X10*3/uL Baso # (Auto) 0.0 (0.0-0.2) X10*3/uL Abs Immat Gran (auto) 0.03 (0.00-0.03) X10*3/uL Absolute Neuts (auto) 6.3 (2.0-8.3) X10*3/uL Absolute Nucleated RBC 0.000 (0.0-0.012) X10*3/uL Nucleated RBC % (auto) 0.0 (0.0-0.2) /100WBC Sodium 143 (135-145) mmol/L Potassium 4.4 (3.3-5.1) mmol/L Chloride 109 H (96-108) mmol/L Carbon Dioxide 23 (22-29) mmol/L Anion Gap 15 (12-20) BUN 14 (9-16) mg/dL Creatinine 1.00 (0.5-1.4) mg/dL Estim Creat Clear Calc 62.6 Estimated GFR 59 Random Glucose 93 (60-115) mg/dL Calcium 9.5 (8.4-10.2) mg/dL Urine Opiates Screen Not Detected (Not Detect) Urine Fentanyl Screen Not Detected (Not Detect) Ur Barbiturates Screen Not Detected (Not Detect) Ur Phencyclidine Scrn Not Detected (Not Detect) Ur Amphetamines Screen Not Detected (Not Detect) U Benzodiazepines Scrn POSITIVE H (Not Detect) Urine Cocaine Screen Not Detected (Not Detect) U Marijuana (THC) Screen Not Detected (Not Detect) COVID-19 ([facility]) (Negative) COVID-19 Clin Com 04/18/21 Range/Units 22:26 WBC (4.8-10.8) X10*3/uL RBC (4.20-5.50) X10*6/uL Hgb (12.0-16.0) g/dl Hct (37-47) % MCV (80-98) fL MCH (27.0-33.0) pg MCHC (31.0-35.0) g/dl RDW (11.0-16.0) % Plt Count (160-400) X10*3/uL MPV (9.4-12.3) fL Immature Gran % (Auto) (0.0-0.4) % Neut % (Auto) (45-73) % Lymph % (Auto) (20-40) % Darke % (Auto) (2-11) % Eos % (Auto) (0-4) % Baso % (Auto) (0-2) % Lymph # (Auto) (1.2-4.9) X10*3/uL Darke # (Auto) (0.1-1.2) X10*3/uL Eos # (Auto) (0.0-0.4) X10*3/uL Baso # (Auto) (0.0-0.2) X10*3/uL Abs Immat Gran (auto) (0.00-0.03) X10*3/uL Absolute Neuts (auto) (2.0-8.3) X10*3/uL Absolute Nucleated RBC (0.0-0.012) X10*3/uL Nucleated RBC % (auto) (0.0-0.2) /100WBC Sodium (135-145) mmol/L Potassium (3.3-5.1) mmol/L Chloride (96-108) mmol/L Carbon Dioxide (22-29) mmol/L Anion Gap (12-20) BUN (9-16) mg/dL Creatinine (0.5-1.4) mg/dL Estim Creat Clear Calc Estimated GFR Random Glucose (60-115) mg/dL Calcium (8.4-10.2) mg/dL Urine Opiates Screen (Not Detect) Urine Fentanyl Screen (Not Detect) Ur Barbiturates Screen (Not Detect) Ur Phencyclidine Scrn (Not Detect) Ur Amphetamines Screen (Not Detect) U Benzodiazepines Scrn (Not Detect) Urine Cocaine Screen (Not Detect) U Marijuana (THC) Screen (Not Detect) COVID-19 ([facility]) Negative (Negative) COVID-19 Clin Com See Note <Oneal Nagel MD - Last Filed: 04/19/21 07:23> ECG Data Attestation: I personally reviewed and interpreted this ECG as follows: <Maddy Trejo NP - Last Filed: 04/19/21 02:35> ECG interpretation date: 04/18/21 <Maddy Trejo NP - Last Filed: 04/19/21 02:35> ECG interpretation time: 21:20 <Maddy Trejo NP - Last Filed: 04/19/21 02:35> Prior ECG tracings: available for review <Maddy Trejo NP - Last Filed: 04/19/21 02:35> Interpretation: Vent. rate 94 BPM SD interval 148 ms QRS duration 82 ms QT/QTc 350/437 ms P-R-T axes 56 15 20 Normal sinus rhythm Normal ECG When compared with ECG of 13-FEB-2021 16:55, No significant change was found <Maddy Trejo NP - Last Filed: 04/19/21 02:35> Discharge Plan Discharge Clinical Impression: Unintentional poisoning by clozapine, Suicidal ideations <Maddy Trejo NP - Last Filed: 04/19/21 02:35> Patient Disposition: Home, Self-Care <Maddy Trejo NP - Last Filed: 04/19/21 02:35> Instructions: Clozapine (By mouth), Depression (ED) <Maddy Trejo NP - Last Filed: 04/19/21 02:35> Additional Instructions: Follow-up with outpatient psychiatry as scheduled. Continue to follow titration for clozapine. Thank you for choosing this emergency department for evaluation. Please follow-up with primary care physician as needed. Return to the emergency department for any new, concerning, or worsening symptoms. <Maddy Trejo NP - Last Filed: 04/19/21 02:35> Prescriptions: No Action levothyroxine 75 mcg capsule 75 mcg PO DAILY Qty: 30 RF: 3 clozapine 25 mg Tablet 25 mg PO BID RF: 0 diazepam 5 mg Tablet 5 mg PO BID PRN (Reason: Anxiety) RF: 0 quetiapine [Seroquel] 25 mg tablet 25 mg PO DAILY PRNRF: 0 cholecalciferol (vitamin D3) 25 mcg (1,000 unit) capsule 25 mcg PO DAILY RF: 0 escitalopram oxalate 20 mg tablet 30 mg PO DAILY RF: 0 clozapine 100 mg tablet 200 mg PO BID RF: 0 <Maddy Trejo TECHNICAL APPLICATIONS SPECIALIST - Last Filed: 04/19/21 02:35>
--- NOTE | 2021-04-18 21:18 | PC.NURSE ---
Patient walked into ED POD with her health care proxy Sayda, patient is currently at [facility] in [place], was sent to ED for high level of serum Clozaril level, clozaril level was drawn on 04/15/2021 per weekly draw order and result came out on 04/18/2021 and level was 1294, provider was aware of the level, psych consult order was done immediately awaiting their call back, EKG done immediately, result unremarkable/provider made aware, [facility] called and reported that patient is transition from Lexapro to Fluvoxamine, [place] pro ordered to taper from 20 mg daily to 10 mg this week and discontinue, Fluvoxamine to start at 50 mg this week daily to 100 mg daily from next week onward, patient is clinically stable at this time, alert and oriented x 4, will continue to [facility].
[2021-04-18 22:48] LABS: COVID-19 Test Negative (Negative); IDNOW Serial# 08D9AD1C
[2021-04-18 22:57] LABS: Amphetamine Screen Urine Not Detected (Not Detect); Barbiturates, Urine Not Detected (Not Detect); Benzodiazepines Screen Urine POSITIVE (Not Detect); Cannabinoid Screen Urine Not Detected (Not Detect); Cocaine Screen Urine Not Detected (Not Detect); Fentanyl, urine Not Detected (Not Detect); Opiate Screen Urine Not Detected (Not Detect); Phencyclidine Screen Urine Not Detected (Not Detect)
--- NOTE | 2021-04-18 23:12 | MHC.CARE ---
Pt arrived to ED due to high colazaril level. She is currently at [facility] and casie Rebollar is able to return once medically cleared. Pt is here for medical and will not require a psych eval she will return back to [facility].
[2021-04-19 00:36] VITALS: BP 147/96; PULSE 77; RESP 16; TEMP 36; O2SAT 100
--- NOTE | 2021-04-19 03:21 | PC.NURSE ---
Patient appears sleeping, no distress observed/reported, patient is being closely monitored for seizure secondary to high Clozaril level. will continue to monitor.
--- NOTE | 2021-04-19 05:16 | PC.NURSE ---
Patient is in bed appears sleeping, no distress observed/reported, asymptomatic of Clozaril toxicity at this time, patient is not a crises patient and patient was sent from [facility] facility for evaluation and treatment related to high Clozaril level, ED provider ordered NISHA psych consult, order was placed/confirmed calling [facility], JESSE Garcia called for treatment recommendation, Per Kaylyn if patient is not presenting altered mental status such as confusion, patient can be d/c back to [facility] with recommendation to monitor for seizure and hold Clozaril until level comes down to normal, provider updated however ED provider wants to keep the patient for overnight for observation, Patient's Health Care Proxy Sayda is available anytime for ride and and support her number # [phone], [facility] RN Mickey who can be reached at [phone] reported that patient can return anytime. Clozapine got drawn and result will be in three days, Will continue to monitor.
[2021-04-23 17:12] LABS: Norclozapine 639 mcg/L (25-400)
[2021-04-24 08:30] LABS: Clozapine (Clozaril) 1211
== END 2021-04-19 07:39 | disposition home or self-care (01) ==
PROVIDERS: Nurse Practitioner Family; Emergency Provider Emergency Medicine Emergency Medical Services; PCP Internal Medicine
DX: T42.4X1A Poisoning by benzodiazepines, accidental (unintentional), initial encounter (principal); R41.82 Altered mental status, unspecified; Y92.10 Unspecified residential institution as the place of occurrence of the external cause; R45.851 Suicidal ideations; F32.9 Major depressive disorder, single episode, unspecified; F06.34 Mood disorder due to known physiological condition with mixed features; Z20.822 Contact with and (suspected) exposure to COVID-19
CPT/HCPCS: 36415; 80048; 80159; 80307; 85025; 87635; 93005; 99283; 99284

== ENCOUNTER 2021-04-27 09:42 | Outpatient (REF) | payer MEDICAID, SELFPAY ==
[2021-04-27 10:26] LABS: MANUAL DIFF FLAG NO
[2021-04-27 10:44] LABS: Basophils Percent Auto 0.3 % (0-2); Eosinophils Absolute Auto 0.2 X10*3/uL (0.0-0.4); Hematocrit 40.8 % (37-47); Hemoglobin 13.4 g/dl (12.0-16.0); Imm Gran Abs Auto 0.02 X10*3/uL (0.00-0.03); Imm Gran Pct Auto 0.3 % (0.0-0.4); Lymphocytes Absolute Auto 1.7 X10*3/uL (1.2-4.9); Lymphocytes Percent Auto 22.1 % (20-40); Mean Corpuscular HGB Conc 32.8 g/dl (31.0-35.0); Mean Corpuscular Hemoglobin 29.8 pg (27.0-33.0); Mean Corpuscular Volume 90.7 fL (80-98); Mean Platelet Volume 11.3 fL (9.4-12.3); Monocytes Absolute Auto 0.7 X10*3/uL (0.1-1.2); Monocytes Percent Auto 9.7 % (2-11); Neutrophils Percent Auto 64.6 % (45-73); Platelet Count 305 X10*3/uL (160-400); Red Cell Distribution Width 13.2 % (11.0-16.0); White Blood Count 7.7 X10*3/uL (4.8-10.8)
[2021-04-27 11:19] LABS: Thyroid Stimulating Hormone 0.96 uIU/mL (0.32-4.0)
== END 2021-04-27 09:43 | disposition home or self-care (01) ==
LOC: HO.LABR 09:42
PROVIDERS: Nurse Practitioner Gerontology; PCP Internal Medicine; Visit Provider Psychiatry & Neurology Psychiatry
DX: E03.9 Hypothyroidism, unspecified (principal); Z51.81 Encounter for therapeutic drug level monitoring; Z79.899 Other long term (current) drug therapy
CPT/HCPCS: 36415; 84443; 85025; 85048

== ENCOUNTER → 2021-04-30 08:51 | Outpatient (BNVA) | payer MEDICAID, SELFPAY | PROVIDERS: PCP Internal Medicine; Referring Provider Internal Medicine; Visit Provider Surgery | DX: D17.0 Benign lipomatous neoplasm of skin and subcutaneous tissue of head, face and neck (principal) | CPT/HCPCS: 99212 ==

== ENCOUNTER 2021-05-01 12:16 | Outpatient (REF) | payer MEDICAID, SELFPAY ==
--- NOTE | ~2021-05-01 | MM_ITS ---
EXAMINATION: MM DIAGNOSTIC DIGITAL BREAST TOMOSYNTHESIS, LEFT CLINICAL INFORMATION: Left stereotactic biopsy 10/08/2020 (complex sclerosing lesion, usual ductal hyperplasia, no atypia). Left lumpectomy 10/29/2020 (benign breast tissue with fibrocystic changes and columnar cell hyperplasia, biopsy site changes, no residual complex sclerosing lesion. No atypia or malignancy). The lifetime risk of breast cancer based on the Tyrer-Cuzick Model is 11%. COMPARISON: Mammography: 10/29/2020, 10/08/2020, 10/02/2020, 08/30/2020. TECHNIQUE: Digital breast tomosynthesis is performed in both the craniocaudal and mediolateral oblique views along with computer-aided detection (CAD). Synthesized 2D images are generated from the tomosynthesis. Additional magnification CC and magnification ML views are obtained. FINDINGS: The breasts are heterogeneously dense, which may obscure small masses (ACR BI-RADS breast composition Category c). There are post lumpectomy changes with scarring central outer breast. There are scattered isolated and grouped round, rim, predominantly dermal calcifications again seen inferior mid to posterior breast. The axilla is unremarkable. Exam serves as new baseline for left breast post surgery. Results are provided to the patient at time of visit by the technologist. MM/MM tomosynthesis diagnostic LT IMPRESSION: Post lumpectomy changes left breast. ASSESSMENT: BI-RADS 2: Benign RECOMMENDATION: Routine annual mammography screening. This patient's information was entered into a reminder system with a target due date for their next mammogram.
== END 2021-05-01 12:17 | disposition home or self-care (01) ==
LOC: HO.MAMMO 12:16
PROVIDERS: Visit Provider Internal Medicine
DX: Z98.890 Other specified postprocedural states (principal)
CPT/HCPCS: 77061; 77065

== ENCOUNTER → 2021-05-07 09:11 | Outpatient (BNVA) | payer MEDICAID, SELFPAY | PROVIDERS: PCP Internal Medicine; Visit Provider Psychiatry & Neurology Neurology ==

== ENCOUNTER 2021-05-10 13:26 | Emergency (ER) | payer MEDICAID, SELFPAY ==
[2021-05-10 13:36] VITALS: BP 110/81; PULSE 106; PULSE 111; RESP 16; TEMP 37.2; O2SAT 100; BMI 25.6
--- NOTE | 2021-05-10 13:47 | ECG_ITS ---
Test Reason : WEAKNESS Blood Pressure : / mmHG Vent. Rate : 095 BPM Atrial Rate : 095 BPM P-R Int : 142 ms QRS Dur : 082 ms QT Int : 346 ms P-R-T Axes : 051 -04 023 degrees QTc Int : 434 ms Normal sinus rhythm Normal ECG When compared with ECG of 18-APR-2021 21:20, No significant change was found Referred By: Generic ED Physician Electronically Signed By:MALAIKA PARSON
[2021-05-10 14:32] LABS: MANUAL DIFF FLAG NO
[2021-05-10 14:33] LABS: Basophils Percent Auto 0.2 % (0-2); Hematocrit 37.1 % (37-47); Hemoglobin 12.6 g/dl (12.0-16.0); Imm Gran Abs Auto 0.02 X10*3/uL (0.00-0.03); Imm Gran Pct Auto 0.2 % (0.0-0.4); Lymphocytes Absolute Auto 1.5 X10*3/uL (1.2-4.9); Lymphocytes Percent Auto 16.7 % (20-40); Mean Corpuscular Hemoglobin 30.4 pg (27.0-33.0); Mean Corpuscular Volume 89.4 fL (80-98); Mean Platelet Volume 10.6 fL (9.4-12.3); Monocytes Absolute Auto 0.9 X10*3/uL (0.1-1.2); Monocytes Percent Auto 10.1 % (2-11); Neutrophils Absolute Auto 6.7 X10*3/uL (2.0-8.3); Neutrophils Percent Auto 72.8 % (45-73); Platelet Count 334 X10*3/uL (160-400); Red Blood Count 4.15 X10*6/uL (4.20-5.50); Red Cell Distribution Width 13.2 % (11.0-16.0); White Blood Count 9.2 X10*3/uL (4.8-10.8)
[2021-05-10 14:49] LABS: Anion Gap 11 (12-20); Blood Urea Nitrogen 12 mg/dL (9-16); Calcium 9.8 mg/dL (8.4-10.2); Carbon Dioxide 23 mmol/L (22-29); Chloride 110 mmol/L (96-108); Estimated Glomerular Filt Rate > 60; Glucose Random 84 mg/dL (60-115); Potassium 4.3 mmol/L (3.3-5.1); Sodium 140 mmol/L (135-145)
[2021-05-10 14:55] LABS: Troponin-I High Sensitivity < 3.5 ng/L (<3.5-17.0)
--- NOTE | 2021-05-10 17:18 | ED.GENADULT ---
HPI - General Adult General Chief complaint: Weakness Stated complaint: weakness Time Seen by Provider: 05/10/21 17:17 Source: patient Mode of arrival: ambulatory Limitations: language barrier History of Present Illness HPI narrative: 45-year-old female who lives in a chcf with a past medical history of ETC therapy, bipolar, OCD, hypothyroid, and depression, presents for complaint of feeling hungry and not being able to eat. Patient states something happened early today, she cannot explain it, and she feels afraid. States she has a ?hungry feeling in my throat? Endorses fatigue and anxiety. Denies abdominal pain, nausea, vomiting, diarrhea. Patient has been having normal bowel movements, last 1 was yesterday. Denies fevers, cough, sore throat, nasal congestion, body aches, dysuria. Patient states she is afraid because she is scared someone will put a tube in her stomach, and she is afraid because she is worried she will not be able to cook at home. Patient is unwilling or unable to elaborate on events that happened prior to her arrival. She does state that her thyroid medication has recently been changed Related Data Home Medications Medication Instructions Recorded Confirmed cholecalciferol (vitamin D3) 25 25 mcg PO DAILY 11/26/20 04/03/21 mcg (1,000 unit) capsule clozapine 100 mg tablet 200 mg PO BID tab 11/26/20 04/03/21 escitalopram oxalate 20 mg tablet 30 mg PO DAILY tab 11/26/20 04/03/21 clozapine 25 mg tablet 25 mg PO BID 02/13/21 04/03/21 diazepam 5 mg tablet 5 mg PO BID PRN 02/13/21 04/03/21 quetiapine 25 mg tablet (Seroquel) 25 mg PO DAILY PRN 04/03/21 04/03/21 Previous Rx's Medication Instructions Recorded levothyroxine 75 mcg capsule 75 mcg PO DAILY #30 cap 04/03/21 Allergies Allergy/AdvReac Type Severity Reaction Status Date / Time aripiprazole Allergy Mild Unknown Verified 05/07/21 09:13 bupropion AdvReac Unknown Verified 05/07/21 09:13 divalproex sodium AdvReac Unknown Verified 05/07/21 09:13 [From Depakote] risperidone AdvReac Unknown Verified 05/07/21 09:13 Review of Systems Constitutional: Constitutional: Denies body ache(s), Denies chills, Reports fatigue, Denies fever(s), Denies headache(s), Reports malaise and Reports weakness (generalized) Eyes: Eyes: Denies blurry vision and Denies diplopia ENT: Reports Normal hearing present, Denies vertigo, Denies dizziness, Denies otalgia, Denies headache(s), Denies nasal congestion, Denies nasal discharge and Denies sore throat Cardiovascular: Cardiovascular: Denies chest pain, Denies lightheadedness, Denies palpitations and Denies dyspnea Respiratory: Respiratory: Denies chest congestion, Denies cough and Denies dyspnea Gastrointestinal: Gastrointestinal: Denies abdominal pain, Denies melena, Denies hematochezia, Denies change in stool character, Denies diarrhea, Denies nausea and Denies vomiting Genitourinary: Genitourinary: Denies dysuria, Denies pelvic pain, Denies urinary urgency and Denies vaginal discharge Musculoskeletal: Musculoskeletal: Denies myalgias, Denies muscle weakness, Denies numbness and Denies tingling Integumentary/Breasts: Skin/Breast: Denies erythema and Denies rash Neurologic: Reports Normal hearing present, Denies Abnormal speech present, Denies confusion, Denies vertigo, Denies dizziness, Denies headache(s), Denies focal weakness, Denies numbness, Denies Sensory deficit (Neuro), Denies tingling, Denies paresthesias, Denies tremor(s) and Reports weakness (generalized) Psychiatric: Psychiatric: Reports anxiety and Denies confusion Endocrine: Endocrine: Reports fatigue and Denies palpitations FOR[facility]LY [facility], [facility] Past Medical History Medical History Bipolar 1 disorder, mixed Hyperthyroidism Hypothyroidism Major depression OCD (obsessive compulsive disorder) BETH on CPAP Vitamin D deficiency Surgical History History of electroconvulsive therapy History of hysterectomy Hx of breast surgery Social History Social History Household Members: Other Household Members Other:: BHN Are you a primary customer care professional to a significant other at home: No Do you presently have visiting nurse or other home services: No Alcohol intake: never Cigarette Packs Per Day: 1 Cigarettes Per Day: 20.0 Years Smoked: 15 Second Hand Smoke Exposure: No Advance Directives: No Advance Directives Information Provided: No Physical Exam Vital Signs: Vital Signs: Last Vital Signs Temp 99 F 05/10/21 18:16 Pulse 100 05/10/21 18:16 Resp 20 05/10/21 18:16 BP 149/100 H 05/10/21 18:16 Pulse Ox 100 05/10/21 18:16 Body Mass Index 25.6 Const: General: alert, awake and anxious; No confusion Nutritional Appearance: well nourished Orientation/consciousness: patient oriented x3 and No confusion Limitations: no limitations HENMT: Head: Yes normal to inspection, Yes normocephalic and Yes atraumatic Throat: Yes posterior oropharynx normal Eyes: Conjunctivae: conjunctivae normal Pupils: Equal, round and reactive pupils present EOM: EOMs intact bilaterally and No Nystagmus present Neck: Neck: Yes full ROM, Yes no lymphadenopathy and Yes supple Resp: Effort & Inspection: normal respiratory effort and able to speak in complete sentences Auscultation: clear to auscultation bilaterally, no crackles, no rales, no rhonchi and no wheezes Cardio: Rate: regular rate Rhythm: regular rhythm Heart sounds: S1 normal heart sound present and S2 normal heart sound present GI: Inspection: Yes normal to inspection Palpation (GI): Soft to palpation, nontender, no guarding and not rigid Percussion: Yes normal to percussion Auscultation: normal bowel sounds Skin: General skin exam: no rashes or lesions noted Neuro: General: patient oriented x3, gait normal and No confusion Cranial nerves: Yes CN's II-XII intact bilaterally, Yes Facial sensation intact/muscles of mastication intact, Yes Equal, round and reactive pupils present, Yes Bilaterally intact EOM present, Yes Normal facial strength present, Yes Midline tongue present, Yes Normal hearing present, Yes Ability to bilaterally rotate head present and No Nystagmus present Speech: No Abnormal speech present Gait exam (Neuro): Normal gait present Motor exam (neuro): 5/5 motor strength present throughout and Pronator motor function not present Sensory Exam: No Sensory deficit (Neuro) Deep tendon reflexes (DTR's): Right brachioradialis reflex intensity grade: 1+, Left brachioradialis reflex intensity grade: 1+, Right patellar reflex intensity grade: 1+ and Left patellar reflex intensity grade: 1+ Coordination: [id number] test normal, tandem gait normal and does not sway with eyes open Romberg Test: Negative Pupils: Normal pupillary reactivity/response: bilateral Extrem: General: Yes normal to inspection and Yes full ROM Psych: Appearance: grossly normal Affect: normal affect Attitude: cooperative Thought process: Normal thought process present Course Course Course Narrative: 45-year-old female with thyroid disease and a psych history who lives in a chcf, presents for complaints of feeling hungry, but cannot eat. Pt can swallow, she drank juice. Pt's complaints are vague. She is anxious and shaky, but no focal neuro deficits. All of patient's labs are normal, patient has a normal physical exam, TSH is normal. Patient was given crackers and juice, which she was able to eat and drink. Patient's cousin, who is her healthcare proxy, came and stated that patient started Adderall a couple of days ago. Stated patient wants people in her chcf to prepare food for her, and that she thinks that the Adderall is making the patient not want to eat. I told the patient that getting people to prepare food for her sentencing I can help her with here in the emergency room, counseled her to call her primary care provider on Thursday to follow up with Adderall dosing. Medical Decision Making Lab Data Result diagrams: 05/10/21 14:27 05/10/21 14:27 Labs: Lab Results 05/10/21 05/10/21 05/10/21 Range/Units 14:27 14:27 14:27 WBC 9.2 (4.8-10.8) X10*3/uL RBC 4.15 L (4.20-5.50) X10*6/uL Hgb 12.6 (12.0-16.0) g/dl Hct 37.1 (37-47) % MCV 89.4 (80-98) fL MCH 30.4 (27.0-33.0) pg MCHC 34.0 (31.0-35.0) g/dl RDW 13.2 (11.0-16.0) % Plt Count 334 (160-400) X10*3/uL MPV 10.6 (9.4-12.3) fL Immature Gran % (Auto) 0.2 (0.0-0.4) % Neut % (Auto) 72.8 (45-73) % Lymph % (Auto) 16.7 L (20-40) % Snyder % (Auto) 10.1 (2-11) % Eos % (Auto) 0.0 (0-4) % Baso % (Auto) 0.2 (0-2) % Lymph # (Auto) 1.5 (1.2-4.9) X10*3/uL Snyder # (Auto) 0.9 (0.1-1.2) X10*3/uL Eos # (Auto) 0.0 (0.0-0.4) X10*3/uL Baso # (Auto) 0.0 (0.0-0.2) X10*3/uL Abs Immat Gran (auto) 0.02 (0.00-0.03) X10*3/uL Absolute Neuts (auto) 6.7 (2.0-8.3) X10*3/uL Absolute Nucleated RBC 0.000 (0.0-0.012) X10*3/uL Nucleated RBC % (auto) 0.0 (0.0-0.2) /100WBC Sodium 140 (135-145) mmol/L Potassium 4.3 (3.3-5.1) mmol/L Chloride 110 H (96-108) mmol/L Carbon Dioxide 23 (22-29) mmol/L Anion Gap 11 L (12-20) BUN 12 (9-16) mg/dL Creatinine 0.78 (0.5-1.4) mg/dL Estim Creat Clear Calc 78.0 Estimated GFR > 60 Random Glucose 84 (60-115) mg/dL Calcium 9.8 (8.4-10.2) mg/dL Troponin I High Sens < 3.5 (<3.5-17.0) ng/L TSH 1.31 (0.32-4.0) uIU/mL COVID-19 ([facility]) (Negative) COVID-19 Clin Com 05/10/21 Range/Units 17:49 WBC (4.8-10.8) X10*3/uL RBC (4.20-5.50) X10*6/uL Hgb (12.0-16.0) g/dl Hct (37-47) % MCV (80-98) fL MCH (27.0-33.0) pg MCHC (31.0-35.0) g/dl RDW (11.0-16.0) % Plt Count (160-400) X10*3/uL MPV (9.4-12.3) fL Immature Gran % (Auto) (0.0-0.4) % Neut % (Auto) (45-73) % Lymph % (Auto) (20-40) % Snyder % (Auto) (2-11) % Eos % (Auto) (0-4) % Baso % (Auto) (0-2) % Lymph # (Auto) (1.2-4.9) X10*3/uL Snyder # (Auto) (0.1-1.2) X10*3/uL Eos # (Auto) (0.0-0.4) X10*3/uL Baso # (Auto) (0.0-0.2) X10*3/uL Abs Immat Gran (auto) (0.00-0.03) X10*3/uL Absolute Neuts (auto) (2.0-8.3) X10*3/uL Absolute Nucleated RBC (0.0-0.012) X10*3/uL Nucleated RBC % (auto) (0.0-0.2) /100WBC Sodium (135-145) mmol/L Potassium (3.3-5.1) mmol/L Chloride (96-108) mmol/L Carbon Dioxide (22-29) mmol/L Anion Gap (12-20) BUN (9-16) mg/dL Creatinine (0.5-1.4) mg/dL Estim Creat Clear Calc Estimated GFR Random Glucose (60-115) mg/dL Calcium (8.4-10.2) mg/dL Troponin I High Sens (<3.5-17.0) ng/L TSH (0.32-4.0) uIU/mL COVID-19 ([facility]) Negative (Negative) COVID-19 Clin Com See Note Discharge Plan Discharge Clinical Impression: Anxiety Patient Disposition: Home, Self-Care Instructions: Anxiety (ED) Additional Instructions: Please call your primary care provider on Thursday to discuss today's emergency room visit. Please return for any new or concerning Prescriptions: No Action levothyroxine 75 mcg capsule 75 mcg PO DAILY Qty: 30 RF: 3 clozapine 25 mg Tablet 25 mg PO BID RF: 0 diazepam 5 mg Tablet 5 mg PO BID PRN (Reason: Anxiety) RF: 0 quetiapine [Seroquel] 25 mg tablet 25 mg PO DAILY PRNRF: 0 cholecalciferol (vitamin D3) 25 mcg (1,000 unit) capsule 25 mcg PO DAILY RF: 0 escitalopram oxalate 20 mg tablet 30 mg PO DAILY RF: 0 clozapine 100 mg tablet 200 mg PO BID RF: 0 Interventions: ED Discharge Assessment Last Done: 05/10/21 20:01 Discharge Date/Time: 05/10/21 20:05
--- NOTE | 2021-05-10 17:46 | PC.NURSE ---
pt given po challenge
[2021-05-10 18:10] LABS: COVID-19 Test Negative (Negative)
[2021-05-10 18:16] VITALS: BP 149/100; PULSE 100; RESP 20; TEMP 37.2; O2SAT 100
[2021-05-10 18:34] LABS: Thyroid Stimulating Hormone 1.31 uIU/mL (0.32-4.0)
--- NOTE | 2021-05-10 19:27 | PC.NURSE ---
assumed care of pt. pt resting in stretcher, wakes to voice, respirations easy, n/l. skin w/d. will continue to monitor pt.
== END 2021-05-10 20:05 | disposition home or self-care (01) ==
PROVIDERS: Physician Assistant; Emergency Provider Emergency Medicine Emergency Medical Services; PCP Internal Medicine
DX: R53.1 Weakness (principal); F17.210 Nicotine dependence, cigarettes, uncomplicated; F43.0 Acute stress reaction; F41.1 Generalized anxiety disorder; Z20.822 Contact with and (suspected) exposure to COVID-19; Z71.6 Tobacco abuse counseling; Z79.899 Other long term (current) drug therapy
CPT/HCPCS: 36415; 80048; 84443; 84484; 85025; 87635; 93005; 99283

== ENCOUNTER 2021-06-17 17:11 | Outpatient (REF) | payer MEDICAID, SELFPAY ==
[2021-06-17 17:28] LABS: Neutrophils Absolute Auto 6.4 X10*3/uL (2.0-8.3); White Blood Count 10.1 X10*3/uL (4.8-10.8)
== END 2021-06-17 17:12 | disposition home or self-care (01) ==
LOC: HO.LABR 17:11
PROVIDERS: PCP Internal Medicine; Visit Provider Psychiatry & Neurology Psychiatry
DX: Z79.899 Other long term (current) drug therapy (principal)
CPT/HCPCS: 36415; 85048

== ENCOUNTER → 2021-07-15 11:16 | Outpatient (BNVA) | payer MEDICAID, SELFPAY | PROVIDERS: PCP Internal Medicine; Referring Provider Internal Medicine; Visit Provider Surgery | DX: K62.89 Other specified diseases of anus and rectum (principal) | CPT/HCPCS: 99202 ==

== ENCOUNTER → 2021-07-16 | Outpatient (REF) | payer MEDICAID, SELFPAY | LOC: HO.SL | PROVIDERS: PCP Internal Medicine; Visit Provider Psychiatry & Neurology Neurology | DX: G47.33 Obstructive sleep apnea (adult) (pediatric) (principal) | CPT/HCPCS: 99211 ==

== ENCOUNTER 2021-09-02 10:56 | Outpatient (REF) | payer MEDICAID, SELFPAY ==
--- NOTE | ~2021-09-02 | MM_ITS ---
EXAMINATION: MM SCREENING DIGITAL BREAST TOMOSYNTHESIS, BILATERAL CLINICAL INFORMATION: Screening. Asymptomatic. Left stereotactic biopsy 10/08/2020 (complex sclerosing lesion, usual ductal hyperplasia, no atypia). Left lumpectomy 10/29/2020 (benign breast tissue with fibrocystic changes and columnar cell hyperplasia, biopsy site changes, no residual complex sclerosing lesion. No atypia or malignancy). The lifetime risk of breast cancer based on the Tyrer-Cuzick Model is 9%. COMPARISON: Mammography: 05/01/2021, 10/08/2020, 10/02/2020, 08/30/2020 (new baseline) TECHNIQUE: Digital breast tomosynthesis is performed in both the craniocaudal and mediolateral oblique views along with computer-aided detection (CAD). Synthesized 2D images are generated from the tomosynthesis. FINDINGS: The breasts are heterogeneously dense, which may obscure small masses (ACR BI-RADS breast composition Category c). Post lumpectomy changes again noted left breast with central scarring just lateral to midline. There is inhomogeneous parenchymal pattern. There is no significant mass or interval architectural abnormality or developing density. No abnormal calcifications. No significant changes. MM/MM tomosynthesis screening BI IMPRESSION: No mammographic evidence of malignancy. Post lumpectomy changes left breast. ASSESSMENT: BI-RADS 2: Benign RECOMMENDATION: Routine annual mammography screening. This patient's information was entered into a reminder system with a target due date for their next mammogram.
== END 2021-09-02 10:57 | disposition home or self-care (01) ==
LOC: HO.MAMMO 10:56
PROVIDERS: Visit Provider Internal Medicine
DX: Z12.31 Encounter for screening mammogram for malignant neoplasm of breast (principal)
CPT/HCPCS: 77063; 77067

== ENCOUNTER 2021-10-01 08:22 | Outpatient (REF) | payer MEDICAID, SELFPAY ==
[2021-10-01 09:39] LABS: Free T4 (Free Thyroxine) 1.16 ng/dL (0.71-1.85); Thyroid Stimulating Hormone 1.61 uIU/mL (0.32-4.0)
[2021-10-03 05:31] LABS: Triiodothyronine T3 Total 76 ng/dL (76-181)
== END 2021-10-01 08:23 | disposition home or self-care (01) ==
LOC: HO.LAB 08:22
PROVIDERS: Internal Medicine; Visit Provider Nurse Practitioner Gerontology
DX: E03.9 Hypothyroidism, unspecified (principal)
CPT/HCPCS: 36415; 84439; 84443; 84480

== ENCOUNTER → 2021-10-04 07:50 | Outpatient (BNVA) | payer MEDICAID, SELFPAY | PROVIDERS: PCP Internal Medicine; Visit Provider Nurse Practitioner Gerontology ==

== ENCOUNTER 2021-10-23 08:57 | Outpatient (REF) | payer MEDICAID, SELFPAY ==
--- NOTE | 2021-10-23 09:01 | EMG_ITS ---
This is a 45-year-old woman with numbness in the right hand and weakness of 1-2 months duration. She is very vague about it. There is tingling in the ring and small finger. PHYSICAL EXAMINATION: On examination, she has decreased sensation in the ulnar nerve distribution and weakness in the finger spread on the right. IMPRESSION: Ulnar nerve palsy. Nerve conduction EMG study: Severe compression palsy of the right ulnar nerve at the elbow in the cubital tunnel. EMG of the right upper extremities consistent with early denervation of ulnar innervated intrinsic hand muscles consistent with ulnar neuropathy. MD APOLLO Zamarripa/[facility] / [phone]
== END 2021-10-23 08:58 | disposition home or self-care (01) ==
LOC: HO.NEURO 08:57
PROVIDERS: PCP Internal Medicine; Visit Provider Emergency Medicine
DX: R20.2 Paresthesia of skin (principal)
CPT/HCPCS: 95886; 95910

== ENCOUNTER → 2021-11-26 13:38 | Outpatient (BNVA) | payer MEDICAID, SELFPAY | PROVIDERS: PCP Internal Medicine; Visit Provider Orthopaedic Surgery | DX: G56.21 Lesion of ulnar nerve, right upper limb (principal) | CPT/HCPCS: 99202 ==

== ENCOUNTER 2021-11-27 07:50 | Outpatient (REF) | payer MEDICAID, SELFPAY ==
[2021-11-27 09:28] LABS: Free T4 (Free Thyroxine) 1.16 ng/dL (0.71-1.85)
== END 2021-11-27 07:51 | disposition home or self-care (01) ==
LOC: HO.LAB 07:50
PROVIDERS: PCP Internal Medicine; Visit Provider Nurse Practitioner Gerontology
DX: E03.9 Hypothyroidism, unspecified (principal)
CPT/HCPCS: 36415; 84439; 84443

== ENCOUNTER → 2021-12-04 10:48 | Outpatient (BNVA) | payer MEDICAID, SELFPAY | PROVIDERS: PCP Internal Medicine; Referring Provider Internal Medicine; Visit Provider Physician Assistant | DX: Z12.11 Encounter for screening for malignant neoplasm of colon (principal); K59.00 Constipation, unspecified | CPT/HCPCS: 99202 ==

== ENCOUNTER 2021-12-09 07:03 | Day surgery (SDC) | payer MEDICAID, SELFPAY ==
--- NOTE | 2021-12-09 08:08 | W.PM.OPN ---
Operative Note Operative Note Date of Service: 12/09/21 Narrative: Operative Note Narrative: Preop diagnosis: 1. right Cubital tunnel syndrome Postop diagnosis: Same Procedure: 1. right Cubital Tunnel Release Surgeon: Torri Echavarria MD Anesthesia: General Findings: Thickening and fibrosis about the ulnar nerve at the cubital tunnel Implants: none Tourniquet time: 18 minutes EBL: 5.0 ml Specimen: none Drains: None Complications: None Disposition: Brought to the recovery room in stable condition Plan: Follow-up in 10-14 days for wound check, and suture removal Indications: The patient is 45 years old with right cubital tunnel syndrome . The risks and benefits of operative treatment, including but not limited to risk of damage to blood vessels, nerves, tendons, infection, recurrence, persistent pain or numbness, incomplete resolution of preoperative symptoms, or need for further surgery were discussed with the patient and they wished to proceed with surgery. Procedure: Once consent was obtained patient was brought back to the operating suite and placed in the operating table in a supine position. Perioperative antibiotics and anesthesia was administered by the anesthesia team. The limb was prepped and draped in a standard surgical fashion, and a sterile tourniquet applied to the proximal aspect of the right upper extremity. The limb was elevated exsanguinated with Esmarch bandage and the tourniquet inflated to 250 mm of mercury for a total tourniquet time of 18 minutes. A 6 cm gently curved but longitudinally oriented incision was made centered over the cubital tunnel of the right upper extremity. Incision was made through the skin to the subcutaneous tissues using a # 15 Blade. I then dissected down to the level of the medial epicondyle and the cubital tunnel using tenotomy scissors. Care was taken to protect the lateral antebrachial cutaneous nerve. The ulnar nerve was identified just posterior to the medial intermuscular septum. The ulnar nerve was released in a proximal to distal direction using tenotomy in iris scissors while directly visualizing and protecting the ulnar nerve. Thickening and fibrosis was appreciated about the ulnar nerve as it passed through the cubital tunnel. The ulnar nerve was assessed as I passed the elbow through full flexion and extension and was found to remain stable within its groove. At this point the tourniquet was deflated and hemostasis obtained with a brief period of local pressure and bipolar electrocautery. The wound was copiously irrigated with normal saline. The subcutaneous layer was closed with 4-0 Vicryl suture, and the skin edges were reapproximated with 5-0 nylon suture. The wound was infiltrated with some 0.25% plain Marcaine for postop pain control and sterile dressings and a posterior splint was applied. The patient appears to have tolerated the procedure well and with no complications. All digits were well vascularized conclusion of the case.
[2021-12-09 08:32] VITALS: BMI 28.3
[2021-12-09 08:38] VITALS: BP 119/78; PULSE 68; RESP 16; TEMP 36.4; O2SAT 100
--- NOTE | 2021-12-09 09:02 | P.CONAN_ITS ---
[facility] Active Problems Active Problems: All Active Problems (Updated 12/04/21 @ 11:39 by Hayley Marshall PA-C) Constipated (Acute) Encounter for screening colonoscopy (Acute) Cubital tunnel syndrome on right (Acute) Cyst of perianal area (Acute) Abnormal EEG (Acute) Encounter for medication monitoring (Acute) Lipoma of back (Acute) Lipoma of neck (Acute) Abnormal mammogram of left breast (Acute) Abnormal ultrasound of breast (Acute) Vitamin D deficiency (Acute) BETH on CPAP (Acute) History of electroconvulsive therapy (Acute) Major depression (Acute) Hypothyroidism (Acute) OCD (obsessive compulsive disorder) (Acute) Bipolar 1 disorder, mixed (Acute) Past Medical History Medical History Bipolar 1 disorder, mixed Cyst of perianal area Hyperthyroidism Hypothyroidism Major depression OCD (obsessive compulsive disorder) BETH on CPAP Vitamin D deficiency Family History Family History Mother No problems noted. Father No problems noted. Family history of problems with anesthesia: No Surgical History Surgical History History of electroconvulsive therapy History of hysterectomy Hx of breast surgery History of Problems with Anesthesia: No (Awareness under anesthesia with ECT) Social History Social History (Updated 12/04/21 @ 11:14 by Hayley Marshall PA-C) Household Members: Other Household Members Other:: BHN Are you a primary intensive care unit registered nurse to a significant other at home: No Do you presently have visiting nurse or other home services: No Alcohol intake: never Patient Tobacco Use Status: Former Tobacco user Tobacco use type: Cigarette Cigarette Packs Per Day: 1 Cigarettes Per Day: 20.0 Years Smoked: 15 Smoked in Last 30 Days: No Second Hand Smoke Exposure: No Use of substances other than those prescribed or required for medical reasons: No Are you DNR?: No Advance Directives: No Advance Directives Information Provided: Yes Current occupational status: unemployed and disabled 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 Meds Allergies Allergy/AdvReac Type Severity Reaction Status Date / Time aripiprazole Allergy Mild Unknown Verified 12/09/21 08:25 bupropion AdvReac Unknown Verified 12/09/21 08:25 divalproex sodium AdvReac Unknown Verified 12/09/21 08:25 [From Depakote] risperidone AdvReac Unknown Verified 12/09/21 08:25 Home Medications Medication Instructions Recorded Confirmed Last Taken Type cholecalciferol (vitamin D3) 25 25 mcg PO DAILY 11/26/20 12/04/21 02/13/21 History mcg (1,000 unit) capsule clozapine 100 mg tablet 200 mg PO BID tab 11/26/20 12/04/21 02/13/21 History escitalopram oxalate 20 mg tablet 30 mg PO DAILY tab 11/26/20 12/04/21 02/13/21 History clozapine 25 mg tablet 25 mg PO BID 02/13/21 12/04/21 02/13/21 History quetiapine 25 mg tablet (Seroquel) 25 mg PO DAILY PRN 04/03/21 12/04/21 Unknown History acetaminophen 500 mg tablet 500 mg PO Q6H PRN 07/15/21 12/04/21 Unknown History (Tylenol Extra Strength) clozapine 50 mg tablet (Clozaril) 50 mg PO BID 07/15/21 12/04/21 Unknown History docusate sodium 100 mg capsule 100 mg PO DAILY 07/15/21 12/04/21 Unknown History fluvoxamine 100 mg tablet 100 mg PO BID 07/15/21 12/04/21 Unknown History haloperidol 2 mg tablet 2 mg PO DAILY 07/15/21 12/04/21 Unknown History polyethylene glycol 3350 17 17 g PO DAILY 07/15/21 12/04/21 Unknown History gram/dose oral powder (Miralax) clonazepam 0.5 mg tablet 0.5 mg PO BEDTIME 11/26/21 12/04/21 Unknown History benztropine 1 mg tablet 1 mg PO DAILY 12/04/21 12/04/21 Unknown History haloperidol 10 mg tablet 10 mg PO BID 12/04/21 12/04/21 Unknown History Exam Exam Date and Time: December 09, [id number] Height,Weight and Vital Signs: Height 5 ft 2 in Weight 70.307 kg Last Vital Signs Temp 97.5 F 12/09/21 08:38 Pulse 68 12/09/21 08:38 Resp 16 12/09/21 08:38 BP 119/78 12/09/21 08:38 Pulse Ox 100 12/09/21 08:38 Airway Mallampati Class: III TM Dist: >3cm Assessment and Plan Assessment Anesthesia Assessment: Anesthesia Plan Discussed and Chart Reviewed Final Anesthetic Review Family History of Problems with Anesthesia: No History of Problems with Anesthesia: No (Awareness under anesthesia with ECT) NPO: Yes ASA Class: III Final Preanesthetic Review: No Changes in Pt Med Stat, Meds/Allgs Chart Reviewed, Consent Obtained/Reviewed and Anes Risks/Benef Reviewed Patient Risk: Intermediate Procedure Risk: Intermediate Anesthetic Plan Anesthetic Plan: GA Disposition: Standard PACU
[2021-12-09] MEDS: Lactated Ringers 1,000 ML 100 ML IVCONT (09:05)
--- NOTE | 2021-12-09 10:42 | MHC.SHP ---
Pre-Procedural Eval Section A Date of Service: 12/09/21 The patient is an INPATIENT: No Changes since office visit: No Cold of Flu in the past 2 weeks, No New Medical Problems, No Changes in Medication and No Patient answered all questions The History & Physical has been completed within 30 days and I have reviewed it.: Yes Section B Chief Complaint: lesion of ulnar nerve Allergies: Allergies Allergy/AdvReac Type Severity Reaction Status Date / Time aripiprazole Allergy Mild Unknown Verified 12/09/21 08:25 bupropion AdvReac Unknown Verified 12/09/21 08:25 divalproex sodium AdvReac Unknown Verified 12/09/21 08:25 [From Depakote] risperidone AdvReac Unknown Verified 12/09/21 08:25 Plan I have reviewed the history and physical and performed a pertinent physical examination on my patient. No changes have occurred unless specified.
[2021-12-09 12:04] VITALS: BP 127/69; PULSE 80; RESP 16; TEMP 36.2; O2SAT 100
[2021-12-09 12:09] VITALS: BP 123/71; PULSE 71; RESP 16; O2SAT 100
[2021-12-09 12:14] VITALS: BP 123/78; PULSE 76; RESP 19; O2SAT 100
[2021-12-09 12:19] VITALS: BP 98/79; PULSE 84; RESP 16; O2SAT 100
[2021-12-09 12:34] VITALS: BP 128/77; PULSE 75; RESP 17; TEMP 36.4; O2SAT 100
== END 2021-12-09 13:11 ==
LOC: HO.SSS 07:03
PROVIDERS: PCP Internal Medicine; Visit Provider Orthopaedic Surgery
PROC: (CPT 64718; principal; 2021-12-09 08:40)
DX: G56.21 Lesion of ulnar nerve, right upper limb (principal); E03.9 Hypothyroidism, unspecified; G47.33 Obstructive sleep apnea (adult) (pediatric); Z99.89 Dependence on other enabling machines and devices
CPT/HCPCS: 64718; J1885; J2250; J2370; J3010

== ENCOUNTER → 2021-12-24 10:22 | Outpatient (BNVA) | payer MEDICAID, SELFPAY | PROVIDERS: PCP Internal Medicine; Visit Provider Orthopaedic Surgery | DX: Z47.89 Encounter for other orthopedic aftercare (principal); Z86.69 Personal history of other diseases of the nervous system and sense organs | CPT/HCPCS: 99212 ==

== ENCOUNTER → 2022-01-21 09:25 | Outpatient (BNVA) | payer MEDICAID, SELFPAY | PROVIDERS: PCP Internal Medicine; Visit Provider Orthopaedic Surgery | DX: G56.21 Lesion of ulnar nerve, right upper limb (principal) | CPT/HCPCS: 99212 ==

== ENCOUNTER 2022-03-07 11:14 | Day surgery (SDC) | payer MEDICAID, SELFPAY ==
--- NOTE | 2022-03-06 09:33 | HO.ANESPROP2 ---
Documented by User: Cindy Garces NP 03/06/22 09:36 HPI - Anesthesia Eval Consult details Narrative: 46yo F for Colonoscopy s/p cubital tunnel release 11/2021 with GA-LMA 4 PMFSH Active Problems Active Problems: All Active Problems (Updated 12/04/21 @ 11:39 by Hayley Marshall PA-C) Constipated (Acute) Encounter for screening colonoscopy (Acute) Cubital tunnel syndrome on right (Acute) Cyst of perianal area (Acute) Abnormal EEG (Acute) Encounter for medication monitoring (Acute) Lipoma of back (Acute) Lipoma of neck (Acute) Abnormal mammogram of left breast (Acute) Abnormal ultrasound of breast (Acute) Vitamin D deficiency (Acute) BETH on CPAP (Acute) History of electroconvulsive therapy (Acute) Major depression (Acute) Hypothyroidism (Acute) OCD (obsessive compulsive disorder) (Acute) Bipolar 1 disorder, mixed (Acute) Past Medical History Medical History Bipolar 1 disorder, mixed Cyst of perianal area Hyperthyroidism Hypothyroidism Major depression OCD (obsessive compulsive disorder) BEHT on CPAP Vitamin D deficiency Family History Family History Mother No problems noted. Father No problems noted. Family history of problems with anesthesia: No Surgical History Surgical History History of electroconvulsive therapy History of hysterectomy Hx of breast surgery History of Problems with Anesthesia: No (Awareness under anesthesia with ECT) Social History Social History Household Members: Other Household Members Other:: long-term Are you a primary long term care phlebotomist to a significant other at home: No Do you presently have visiting nurse or other home services: No Alcohol intake: never Patient Tobacco Use Status: Former Tobacco user Quit Date: years ago Tobacco use type: Cigarette Cigarette Packs Per Day: 1 Cigarettes Per Day: 20.0 Years Smoked: 15 Second Hand Smoke Exposure: No Use of substances other than those prescribed or required for medical reasons: No Are you DNR?: No Advance Directives: No Advance Directives Information Provided: Yes Patient : No (hysterectomy) Current occupational status: unemployed and disabled 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 Meds Allergies Allergy/AdvReac Type Severity Reaction Status Date / Time aripiprazole Allergy Mild Unknown Verified 01/21/22 09:39 bupropion AdvReac Unknown Verified 01/21/22 09:39 divalproex sodium AdvReac Unknown Verified 01/21/22 09:39 [From Depakote] risperidone AdvReac Unknown Verified 01/21/22 09:39 Home Medications Medication Instructions Recorded Confirmed Last Taken Type cholecalciferol (vitamin D3) 25 25 mcg PO DAILY 11/26/20 12/04/21 02/13/21 History mcg (1,000 unit) capsule clozapine 100 mg tablet 200 mg PO BID 11/26/20 12/04/21 02/13/21 History escitalopram oxalate 20 mg tablet 30 mg PO DAILY 11/26/20 12/04/21 03/07/22 History clozapine 25 mg tablet 25 mg PO BID 02/13/21 12/04/21 02/13/21 History quetiapine 25 mg tablet (Seroquel) 25 mg PO DAILY PRN 04/03/21 12/04/21 Unknown History acetaminophen 500 mg tablet 500 mg PO Q6H PRN 07/15/21 12/04/21 Unknown History (Tylenol Extra Strength) clozapine 50 mg tablet (Clozaril) 50 mg PO BID 07/15/21 12/04/21 Unknown History docusate sodium 100 mg capsule 100 mg PO DAILY 07/15/21 12/04/21 03/07/22 History fluvoxamine 100 mg tablet 100 mg PO BID 07/15/21 12/04/21 Unknown History haloperidol 2 mg tablet 2 mg PO DAILY 07/15/21 12/04/21 03/07/22 History polyethylene glycol 3350 17 17 g PO DAILY 07/15/21 12/04/21 Unknown History gram/dose oral powder (Miralax) clonazepam 0.5 mg tablet 0.5 mg PO BEDTIME 11/26/21 12/04/21 03/07/22 History benztropine 1 mg tablet 1 mg PO DAILY 12/04/21 12/04/21 03/07/22 History haloperidol 10 mg tablet 10 mg PO BID 12/04/21 12/04/21 03/07/22 History Exam Exam Date and Time: March 06, 2022 0933 Narrative Narrative: EKG 05/2021 Vent. Rate : 095 BPM ? ? Atrial Rate : 095 BPM ?? P-R Int : 142 ms? QRS Dur : 082 ms ? ? QT Int : 346 ms ? ? ? P-R-T Axes : 051 -04 023 degrees ?? QTc Int : 434 ms ? Normal sinus rhythm Normal ECG When compared with ECG of 18-APR-2021 21:20, No significant change was found Assessment and Plan Assessment Anesthesia Assessment: Chart Reviewed Final Anesthetic Review Family History of Problems with Anesthesia: No History of Problems with Anesthesia: No (Awareness under anesthesia with ECT) Documented by User: Amy Becker MD 03/07/22 12:35 [facility] Past Medical History Medical History Bipolar 1 disorder, mixed Cyst of perianal area Hyperthyroidism Hypothyroidism Major depression OCD (obsessive compulsive disorder) BETH on CPAP Vitamin D deficiency Family History Family History Mother No problems noted. Father No problems noted. Surgical History Surgical History History of electroconvulsive therapy History of hysterectomy Hx of breast surgery Social History Social History Household Members: Other Household Members Other:: long-term Are you a primary long term care phlebotomist to a significant other at home: No Do you presently have visiting nurse or other home services: No Alcohol intake: never Patient Tobacco Use Status: Former Tobacco user Quit Date: years ago Tobacco use type: Cigarette Cigarette Packs Per Day: 1 Cigarettes Per Day: 20.0 Years Smoked: 15 Second Hand Smoke Exposure: No Use of substances other than those prescribed or required for medical reasons: No Are you DNR?: No Advance Directives: No Advance Directives Information Provided: Yes Patient : No (hysterectomy) Current occupational status: unemployed and disabled 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 Meds Allergies Allergy/AdvReac Type Severity Reaction Status Date / Time aripiprazole Allergy Mild Unknown Verified 01/21/22 09:39 bupropion AdvReac Unknown Verified 01/21/22 09:39 divalproex sodium AdvReac Unknown Verified 01/21/22 09:39 [facility] risperidone AdvReac Unknown Verified 01/21/22 09:39 Home Medications Medication Instructions Recorded Confirmed Last Taken Type cholecalciferol (vitamin D3) 25 25 mcg PO DAILY 11/26/20 12/04/21 02/13/21 History mcg (1,000 unit) capsule clozapine 100 mg tablet 200 mg PO BID 11/26/20 12/04/21 02/13/21 History escitalopram oxalate 20 mg tablet 30 mg PO DAILY 11/26/20 12/04/21 03/07/22 History clozapine 25 mg tablet 25 mg PO BID 02/13/21 12/04/21 02/13/21 History quetiapine 25 mg tablet (Seroquel) 25 mg PO DAILY PRN 04/03/21 12/04/21 Unknown History acetaminophen 500 mg tablet 500 mg PO Q6H PRN 07/15/21 12/04/21 Unknown History (Tylenol Extra Strength) clozapine 50 mg tablet (Clozaril) 50 mg PO BID 07/15/21 12/04/21 Unknown History docusate sodium 100 mg capsule 100 mg PO DAILY 07/15/21 12/04/21 03/07/22 History fluvoxamine 100 mg tablet 100 mg PO BID 07/15/21 12/04/21 Unknown History haloperidol 2 mg tablet 2 mg PO DAILY 07/15/21 12/04/21 03/07/22 History polyethylene glycol 3350 17 17 g PO DAILY 07/15/21 12/04/21 Unknown History gram/dose oral powder (Miralax) clonazepam 0.5 mg tablet 0.5 mg PO BEDTIME 11/26/21 12/04/21 03/07/22 History benztropine 1 mg tablet 1 mg PO DAILY 12/04/21 12/04/21 03/07/22 History haloperidol 10 mg tablet 10 mg PO BID 12/04/21 12/04/21 03/07/22 History Exam Airway Mallampati Class: II TM Dist: >3cm Neck ROM: Full Heart: rrr Lungs: cta Assessment and Plan Assessment Anesthesia Assessment: Anesthesia Plan Discussed and Chart Reviewed Final Anesthetic Review NPO: Yes ASA Class: III Final Preanesthetic Review: No Changes in Pt Med Stat, Meds/Allgs Chart Reviewed and Consent Obtained/Reviewed Patient Risk: Intermediate Procedure Risk: Intermediate Anesthetic Plan Anesthetic Plan: MAC: Disposition: Standard PACU
[2022-03-07 11:40] VITALS: BMI 31.6
[2022-03-07 11:54] VITALS: BMI 31.6
--- NOTE | 2022-03-07 12:11 | P.HPSUR_ITS ---
Pre-Procedural Eval Section A Date of Service: 03/07/22 The patient is an INPATIENT: No The History & Physical has been completed within 30 days and I have reviewed it.: No Section B Chief Complaint: screening Relevant Family History (Specify if Yes): No Relevant Social History: Tobacco Use (Former smoker) Present Medications: see Short Stay Collaborative assessment Medical History: Significant History (Bipolar 1 disorder, mixed Cyst of perianal area Hyperthyroidism Hypothyroidism Major depression OCD (obsessive compulsive disorder) BETH on CPAP Vitamin D deficiency) History of Previous Operations: Relevant previous surgery/procedure and date(s) (History of electroconvulsive therapy History of hysterectomy Hx of breast surge ry) Allergies: Allergies Allergy/AdvReac Type Severity Reaction Status Date / Time aripiprazole Allergy Mild Unknown Verified 01/21/22 09:39 bupropion AdvReac Unknown Verified 01/21/22 09:39 divalproex sodium AdvReac Unknown Verified 01/21/22 09:39 [From Depakote] risperidone AdvReac Unknown Verified 01/21/22 09:39 Review of Systems Sugical H&P ROS: Negative: Constitution, Cardiovascular, Respiratory and Gastrointestinal Exam Surgical H&P Exam: Normal: Heart, Normal: Lungs, Normal: Extremities and Normal: Abdomen Plan Diagnosis/Plan: Unchanged I have reviewed the history and physical and performed a pertinent physical examination on my patient. No changes have occurred unless specified.
--- NOTE | 2022-03-07 12:18 | W.PM.OPN ---
Operative Note Operative Note Date of Service: 03/07/22 Narrative: Pre-op diagnosis: Colon cancer screen, constipation Post-op diagnosis:?other (Hemorrhoids) Procedure: COLONOSCOPY TILL CECUM Consent: Indications for the procedure and potential complications of bleeding, perforation, reaction to medications and missed diagnosis were discussed with the patient and informed consent was obtained. Instrument: Olympus PCF H 190 L variable stiffness pediatric colonoscope Monitoring: Vital signs and clinical assessment, intermittent blood pressure monitoring, continuous EKG monitoring, Pulse oximetry and Carbon Dioxide monitoring were done throughout the procedure. Colon withdrawl time was 17 minutes. Procedure: The patient was placed in the left lateral decubitis position and pre-procedure medications were administered. After a digital rectal examination of the ano-rectum, the video colonoscope was inserted into the rectum and advanced through the colon to the cecum. The colonoscope was slowly withdrawn in a retrograde panoramic fashion and the colon mucosa was carefully examined including a retroflexed view of the rectum. Findings and interventions are described below. Procedure Difficulty:? Colon was long and tortuous and there was recurrent loop formation.? No maneuvers were required Findings: Terminal Ileum: Not evaluated Cecum:? Normal Ascending Colon:? Normal Transverse Colon:? Normal Descending Colon:? Normal Sigmoid Colon:? Normal Rectum:? Normal Ano-rectum:? Moderate internal hemorrhoids Colon preparation:? Good? Impression and Post Procedure Diagnosis: Colonoscopy Findings: No polyps were detected Moderate hemorrhoids on retroflexed exam. Plan: Await pathology results Patient has an appointment on 03/20/22 in the [facility] with JAYSON Fuller. Repeat Colonoscopy in 9-10 years (adult colonoscope for future colonoscopies). Surgeon: Brian Greco MD Anesthesia:?MAC (Dr Parker) Was an Class C Truck Driver used for this Procedure?:?Yes Class C Truck Driver:?Lacey Drew Estimated blood loss (mL):?0 Pathology:?none sent Condition:?stable Disposition:?PACU
[2022-03-07] MEDS: Lactated Ringers 1,000 ML 100 ML IVCONT (12:40)
[2022-03-07 13:24] VITALS: BP 98/67; PULSE 73; RESP 16; TEMP 36.3; O2SAT 100
[2022-03-07 13:40] VITALS: BP 120/83; PULSE 86; RESP 16; TEMP 36.4; O2SAT 100
== END 2022-03-07 14:01 | disposition home or self-care (01) ==
PROVIDERS: PCP Internal Medicine; Visit Provider Internal Medicine Gastroenterology
PROC: 0DJD8ZZ Inspection of Lower Intestinal Tract, Via Natural or Artificial Opening Endoscopic (ICD-10-PCS; CPT 45378; principal; 2022-03-07 11:40)
DX: Z12.11 Encounter for screening for malignant neoplasm of colon (principal); K59.00 Constipation, unspecified; K64.8 Other hemorrhoids; F31.60 Bipolar disorder, current episode mixed, unspecified; F42.9 Obsessive-compulsive disorder, unspecified; G47.33 Obstructive sleep apnea (adult) (pediatric); E55.9 Vitamin D deficiency, unspecified; Z79.899 Other long term (current) drug therapy; Z88.8 Allergy status to other drugs, medicaments and biological substances; Z87.891 Personal history of nicotine dependence
CPT/HCPCS: 45378

== ENCOUNTER → 2022-03-20 09:29 | Outpatient (BNVA) | payer MEDICAID, SELFPAY | PROVIDERS: PCP Internal Medicine; Visit Provider Physician Assistant | DX: K59.00 Constipation, unspecified (principal) | CPT/HCPCS: 99212 ==

== ENCOUNTER → 2022-05-06 14:38 | Outpatient (BNVA) | payer MEDICAID, SELFPAY | PROVIDERS: PCP Internal Medicine; Visit Provider Surgery | DX: N60.82 Other benign mammary dysplasias of left breast (principal) | CPT/HCPCS: 99212 ==

== ENCOUNTER 2022-05-28 13:45 | Outpatient (REF) | payer MEDICAID, SELFPAY ==
--- NOTE | ~2022-05-28 | MM_ITS ---
EXAMINATION: MM DIAGNOSTIC DIGITAL BREAST TOMOSYNTHESIS, LEFT US DIAGNOSTIC ULTRASOUND BREAST, LEFT CLINICAL INFORMATION: Superficial palpable area noted by patient parasternal inferior medial left breast with mild tenderness. Patient notes cutaneous discharge in past from this area. Prior history left lumpectomy 10/29/2020 for complex sclerosing lesion. No atypia or malignancy. COMPARISON: Mammography: 09/02/2021, 05/01/2021, 08/30/2020 TECHNIQUE: Digital breast tomosynthesis is performed in both the craniocaudal and mediolateral oblique views along with computer-aided detection (CAD). Synthesized 2D images are generated from the tomosynthesis. Ultrasound left breast is targeted to the lower inner quadrant at site of palpable concern using grayscale imaging and color Doppler without and with harmonics. Patient is able to point directly to the site at time of imaging. FINDINGS: The breasts are heterogeneously dense, which may obscure small masses (ACR BI-RADS breast composition Category c). There are post lumpectomy changes with stable scarring central upper outer left breast. There are no significant changes from prior mammography. No mammographic correlate for patient's symptoms posterior lower inner breast. Ultrasound demonstrates an intradermal hypoechoic discoid shape lesion at site of clinical concern 8:00 position 14 cm from nipple measuring approximately 2.5 mm in thickness by 1.7 x 1.1 cm across. Lesion is parallel with the skin. There is some surrounding hyperemia on color Doppler. No subdermal extension. Results are discussed with the patient at time of visit, using an site interpreter. Patient has upcoming appointment with surgeon. MM/MM tomosynthesis diagnostic LT IMPRESSION: -Intradermal lesion at site of palpable concern with mild surrounding hyperemia measuring 2.5 mm in thickness by 1.7 x 1.1 cm across, likely sebaceous cyst/epidermal cyst. ASSESSMENT: BI-RADS 2: Benign RECOMMENDATION: 1. Patient may be managed based on the clinical impression. If persistent or increasing, lesion would be amenable to surgical excision. 2. Otherwise, routine annual screening mammography. This patient's information was entered into a reminder system with a target due date for their next mammogram.
== END 2022-05-28 13:46 | disposition home or self-care (01) ==
LOC: HO.MAMMO 13:45
PROVIDERS: PCP Internal Medicine; Visit Provider Internal Medicine
DX: N60.82 Other benign mammary dysplasias of left breast (principal)
CPT/HCPCS: 76642; 77061; 77065

== ENCOUNTER → 2022-06-12 14:10 | Outpatient (BNVA) | payer MEDICAID, SELFPAY | PROVIDERS: PCP Internal Medicine; Referring Provider Internal Medicine; Visit Provider Surgery | DX: N60.82 Other benign mammary dysplasias of left breast (principal) | CPT/HCPCS: 99212 ==

== ENCOUNTER 2022-09-15 13:27 | Outpatient (REF) | payer MEDICAID, SELFPAY ==
--- NOTE | ~2022-09-15 | MM_ITS ---
EXAMINATION: MM SCREENING DIGITAL BREAST TOMOSYNTHESIS, BILATERAL CLINICAL INFORMATION: Screening. Asymptomatic. Left lumpectomy 10/29/2020 (complex sclerosing lesion. No atypia or malignancy). The lifetime risk of breast cancer based on the Tyrer-Cuzick Model is 11%. COMPARISON: Mammography: 05/28/2022, 09/02/2021, 05/01/2021, 10/08/2020, 08/30/2020 TECHNIQUE: Digital breast tomosynthesis is performed in both the craniocaudal and mediolateral oblique views along with computer-aided detection (CAD). Synthesized 2D images are generated from the tomosynthesis. FINDINGS: The breasts are heterogeneously dense, which may obscure small masses (ACR BI-RADS breast composition Category c). Left breast has post therapy changes with scarring central outer breast and nipple retraction. Neither breast shows interval mass or interval architectural abnormality. There are scattered punctate round and dermal calcifications. Low right axillary tail nodes stable. No significant changes. MM/MM tomosynthesis screening BI IMPRESSION: No mammographic evidence of malignancy. ASSESSMENT: BI-RADS 2: Benign RECOMMENDATION: Routine annual mammography screening. This patient's information was entered into a reminder system with a target due date for their next mammogram.
== END 2022-09-15 13:28 | disposition home or self-care (01) ==
LOC: HO.MAMMO 13:27
PROVIDERS: PCP Internal Medicine; Visit Provider Internal Medicine
DX: Z12.31 Encounter for screening mammogram for malignant neoplasm of breast (principal)
CPT/HCPCS: 77063; 77067

== ENCOUNTER 2023-03-25 14:42 | Outpatient (AMB) | payer MEDICAID, SELFPAY ==
--- NOTE | 2023-03-25 14:52 | MHC.OFFVIS ---
Intake Vital Signs 03/25/23 14:53 Height 5 ft 2 in Weight 179 lb BMI 32.7 Intake Visit Reasons: ov-Lt. hand numbness, s/p rt.cubital rev 12/09/21AR Intake Note: Dariela 47 yr old female presents today for her S/P right Cubital tunnel release DOS: 12/09/21. Patient states she cont's to have numbness in her pinky. Patient is also stating she is now having increase numbness in her right hand. Allergies aripiprazole Allergy (Mild, Verified 03/25/23 15:07) Unknown bupropion Adverse Reaction (Verified 03/25/23 15:07) Unknown divalproex sodium [From Depakote] Adverse Reaction (Verified 03/25/23 15:07) Unknown risperidone Adverse Reaction (Verified 03/25/23 15:07) Unknown HPI ov-Lt. hand numbness, s/p rt.cubital rev 12/09/21AR HPI Details Dariela is a 47 year old right hand dominant woman who presents with complaints of left hand numbness. She has a hx of right cubital tunnel release, DOS: 12/09/21. She has bipolar disorder and currently lives with her cousin. She no longer resides in a intermediate She presents today with complains of numbness in all fingers of the left hand. She says her sensation is reduced in the median nerve distribution and she has dense numbness in the ulnar nerve distribution. She continues to have numbness to the small finger of the right hand following her cubital tunnel release. She complains of new numbness in the median nerve distribution of her right hand. She complains she has trouble sleeping without her hands going numb. [facility] Medical History Bipolar 1 disorder, mixed Cyst of perianal area Hyperthyroidism Hypothyroidism Major depression OCD (obsessive compulsive disorder) BETH on CPAP Vitamin D deficiency Surgical History History of electroconvulsive therapy History of hysterectomy Hx of breast surgery Hx of colonoscopy Family History Mother No problems noted. Father No problems noted. 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 She has reduced sensation in the median nerve distribution of the left hand Dense numbness in the ulnar nerve distribution of the right hand, unchanged from prior. Reduced sensation in the median nerve distribution of the right hand No thenar or intrinsic wasting Good APB muscle belly firing and good finger cross Vascular: Cap refill brisk ROM: She can make a fist and extend all her digits No locking or catching Psych Appearance: grossly normal Affect: Blunted affect present Attitude: cooperative Assessment & Plan Assessment & Plan (1) Numbness of left hand: Code(s): R20.0 - Anesthesia of skin (2) Numbness of right hand: Code(s): R20.0 - Anesthesia of skin (3) S/P cubital tunnel release: Comment: Right: 12/09/21, still with dense numbness Code(s): Z98.890 - Other specified postprocedural states Plan Assessment and plan: 1. Left hand numbness Dense numbness in the ulnar nerve distribution, worse at night Symptoms worse at night in the median nerve distribution 2. Right hand numbness In the median nerve distribution Symptoms worse at night I ordered a NCS of her bilateral hands to assess for peripheral neuropathy vs cervical radiculopathy She will follow up for review when completed. She does have mental health issues including bipolar disorder and currently lives with her cousin She used to reside in a mental health intermediate and was seen with an attendant at her last appointment She appeared to understand our conversation, but we took some time to explain things a Few times. 3. Right cubital tunnel syndrome, S/P release DOS: 12/09/21s . Pre-operatively with dense numbness Post-operatively with dense numbness Her sensation has not improved since her surgery No motor function losses. Scribed for Torri Echavarria MD by Al Cook, medical stenographer, on 03/25/23 at 3:20 PM, EST. Orders: Orders NE nerve conduction velocity Today R20.0 - Anesthesia of skin, R20.2 - Paresthesia of skin Coding Level of Care Code Est Pt Level 3 (58897) Diagnoses Numbness of left hand R20.0 Numbness of right hand R20.0 S/P cubital tunnel release Z98.890
[2023-03-25 14:53] VITALS: BMI 32.7
== END 2023-03-25 15:26 | disposition home or self-care (01) ==
PROVIDERS: PCP Internal Medicine; Visit Provider Orthopaedic Surgery
DX: R20.0 Anesthesia of skin (principal)
CPT/HCPCS: 99213

== ENCOUNTER → 2023-03-25 14:42 | Outpatient (BNVA) | payer MEDICAID, SELFPAY | PROVIDERS: PCP Internal Medicine; Visit Provider Orthopaedic Surgery | DX: R20.0 Anesthesia of skin (principal); Z98.890 Other specified postprocedural states | CPT/HCPCS: 99212 ==

== ENCOUNTER 2023-04-14 08:49 | Outpatient (REF) | payer MEDICAID, SELFPAY ==
[2023-04-14 09:11] LABS: MANUAL DIFF FLAG NO
[2023-04-14 10:17] LABS: Basophils Percent Auto 0.6 % (0-2); Eosinophils Absolute Auto 0.2 X10*3/uL (0.0-0.4); Eosinophils Percent Auto 2.6 % (0-4); Hematocrit 44.1 % (37.0-47.0); Hemoglobin 14.9 g/dl (12.0-16.0); Imm Gran Abs Auto 0.03 X10*3/uL (0.00-0.03); Imm Gran Pct Auto 0.4 % (0.0-0.4); Lymphocytes Percent Auto 29.3 % (20-40); Mean Corpuscular HGB Conc 33.8 g/dl (31.0-35.0); Mean Corpuscular Hemoglobin 30.2 pg (27.0-33.0); Mean Corpuscular Volume 89.3 fL (80.0-98.0); Mean Platelet Volume 10.6 fL (9.4-12.3); Monocytes Absolute Auto 0.7 X10*3/uL (0.1-1.2); Monocytes Percent Auto 10.4 % (2-11); Neutrophils Absolute Auto 3.9 x10*3/uL (2.0-8.3); Neutrophils Percent Auto 56.7 % (45-73); Platelet Count 334 X10*3/uL (160-400); Red Blood Count 4.94 X10*6/uL (4.20-5.50); Red Cell Distribution Width 12.6 % (11.0-16.0); White Blood Count 6.8 X10*3/uL (4.8-10.8)
[2023-04-14 11:07] LABS: Alanine Aminotransferase 24 U/L (0-31); Albumin Level 4.2 g/dL (3.5-5.0); Alkaline Phosphatase 73 U/L (39-117); Anion Gap 12 (12-20); Aspartate Amino Transferase 15 U/L (5-31); Bilirubin Direct 0.2 mg/dL (0.0-0.5); Bilirubin Total 0.5 mg/dL (0.0-1.0); Blood Urea Nitrogen 13 mg/dL (9-16); Calcium 9.4 mg/dL (8.4-10.2); Carbon Dioxide 22 mmol/L (22-29); Chloride 108 mmol/L (96-108); Cholesterol 177 mg/dL; Estimated Glomerular Filt Rate > 60; Glucose Random 89 mg/dL (60-115); HDL Cholesterol 46 mg/dL; LDL Cholesterol Calculated 113 mg/dl; Potassium 3.7 mmol/L (3.3-5.1); Sodium 138 mmol/L (135-145); Total Protein 7.1 g/dL (6.5-8.0); Triglycerides 94 mg/dL
[2023-04-14 11:27] LABS: TSH reflex Free T4 1.49 uIU/mL (0.32-4.0)
== END 2023-04-14 08:50 | disposition home or self-care (01) ==
LOC: HO.LAB 08:49
PROVIDERS: PCP Internal Medicine; Visit Provider Internal Medicine
DX: F33.3 Major depressive disorder, recurrent, severe with psychotic symptoms (principal)
CPT/HCPCS: 36415; 80048; 80061; 80076; 84443; 85025

== ENCOUNTER 2023-05-07 08:53 | Outpatient (REF) | payer MEDICAID, SELFPAY ==
--- NOTE | 2023-05-07 08:56 | EMG_ITS ---
Bilateral median and ulnar motor and sensory studies were performed. Bilateral radial sensory study was performed and paraspinal muscles were tested with a needle. IMPRESSION: Mild bilateral ulnar neuropathy across cubital tunnel. MD RUT Howard/[facility] / [id number]
== END 2023-05-07 08:54 | disposition home or self-care (01) ==
LOC: HO.NEURO 08:53
PROVIDERS: PCP Internal Medicine; Visit Provider Orthopaedic Surgery
DX: R20.0 Anesthesia of skin (principal); R20.2 Paresthesia of skin
CPT/HCPCS: 95886; 95911

== ENCOUNTER 2023-05-19 12:42 | Outpatient (AMB) | payer MEDICAID, SELFPAY ==
[2023-05-19 12:46] VITALS: BMI 32.7
--- NOTE | 2023-05-19 12:46 | MHC.OFFVIS ---
Intake Vital Signs 05/19/23 12:46 Height 5 ft 2 in Weight 179 lb BMI 32.7 Intake Visit Reasons: ov- B/L EMG Review Intake Note: Dariela 47 yr old female presents today for her EMG review of bilateral hands. Hx of right cubital tunnel with Dr Echavarria in 12/09/2021 Allergies aripiprazole Allergy (Mild, Verified 05/19/23 12:47) Unknown bupropion Adverse Reaction (Verified 05/19/23 12:47) Unknown divalproex sodium [From Depakote] Adverse Reaction (Verified 05/19/23 12:47) Unknown risperidone Adverse Reaction (Verified 05/19/23 12:47) Unknown HPI ov- B/L EMG Review HPI Details Dariela is a 47 year old right hand dominant woman who presents with complaints of bothersome tingling in both hands. She says sometimes it feels like she has ants crawling on her fingers. She says it does not feel like sleepiness are numbness. She says sometimes it will feel like her fingers are hard and swollen like this too much blood in them and that they were going to explode. She says that she normally does not feel this when she is busy and not thinking about it. She says she is more likely to feel this when things are quiet and she is not busy, or when she sleeping.. She has a hx of right cubital tunnel release, DOS: 12/09/21. She still feels like she has numbness in the right small finger. 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 She has bipolar disorder and the last we heard, she lives with her cousin. She no longer resides in a nursing home. The last time she was seen we ordered a new EMG nerve conduction study for bilateral hand numbness and tingling. [facility] Medical History Bipolar 1 disorder, mixed Cyst of perianal area Hyperthyroidism Hypothyroidism Major depression OCD (obsessive compulsive disorder) BETH on CPAP Vitamin D deficiency Surgical History History of electroconvulsive therapy History of hysterectomy Hx of breast surgery Hx of colonoscopy Family History Mother No problems noted. Father No problems noted. 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 She did rock back and forth a little bit, but was present and participating in the conversation. She does still have numbness in the right small finger She had difficulty telling me whether the sensation in her other digits in the right hand and the digits in her left hand was normal or not today. No intrinsic or thenar wasting. Good finger abduction and adduction. She can make a fist and extend her digits easily and with good strength bilaterally. No locking or catching. Good cap refill. No swelling or erythema. No lacerations. EMG nerve conduction study from 05/07/2023: Impression: Mild bilateral ulnar neuropathy across the cubital tunnel. Dr. Ma 05/07/2023 Please see his report for additional information as necessary EMG nerve conduction study from 10/23/2021: IMPRESSION:? Ulnar nerve palsy. ? Nerve conduction EMG study:? 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 ? EMG of the right upper extremities consistent with early denervation of ulnar innervated intrinsic hand muscles consistent with ulnar neuropathy. ? Shantanu Payne MD 10/23/2021 13:31:48 Assessment & Plan Assessment & Plan (1) Numbness of left hand: Code(s): R20.0 - Anesthesia of skin (2) Numbness of right hand: Code(s): R20.0 - Anesthesia of skin (3) S/P cubital tunnel release: Comment: Right: 12/09/21, still with dense numbness Code(s): Z98.890 - Other specified postprocedural states (4) Cubital tunnel syndrome, bilateral: Code(s): G56.23 - Lesion of ulnar nerve, bilateral upper limbs Plan Assessment and plan: 1. Complaint of intermittent but daily discomfort in both hands. She says it is not really numbness or sleepiness She describes it as other ants crawling on her fingers. She also describes it at other times as though the blood is filling the tips of her fingers and they are hard and there going to explode. 2. Right cubital tunnel syndrome status post cubital tunnel release Date of surgery 12/09/2021. Preoperatively with dense numbness Preoperatively with findings of ?Severe compression palsy of the right ulnar nerve at the elbow in the cubital tunnel. ? On nerve conduction study from 10/23/2021 Postoperatively and today still with dense numbness in the right small finger. Good finger abduction and adduction. New nerve conduction study with findings of mild ulnar neuropathy across the cubital tunnel, 05/07/2023 3. Left cubital tunnel syndrome, mild on nerve conduction study She is not sure that she is getting numbness in the left small and ring fingers. Her symptoms as described above involves all the fingers of both hands. I educated the patient about these conditions. She has no evidence of carpal tunnel syndrome on nerve conduction study bilaterally. She has evidence of mild cubital tunnel syndrome bilaterally on the most recent nerve conduction study. This is actually significant improvement compared with her findings on 10/23/2021 nerve conduction study which showed severe compression palsy of the right ulnar nerve at the elbow. That being said, she does still have numbness in the right small finger. None of these findings really explain why she has the feelings of either ants crawling on all of her fingers, or which she describes as a feeling of blood filling up the tips of her fingers with the get hard of feel like they are going to explode. I am not recommending any operative treatment at this time as I do not think it would improve her symptoms. I did ask her to talk to her psychiatrist, who she is going to see next week, and let her know about her symptoms and that I am not recommending any kind of operative treatment for those symptoms. It is unclear to me whether this may be psychiatric manifestation, or perhaps something to do with her medications. She knows to schedule another appointment if she starts appreciating numbness, which she says she is not having, occurring in her fingers with increased frequency. Coding Level of Care Code Est Pt Level 4 (38569) Diagnoses Numbness of left hand R20.0 Numbness of right hand R20.0 S/P cubital tunnel release Z98.890 Cubital tunnel syndrome, bilateral G56.23
== END 2023-05-19 13:43 | disposition home or self-care (01) ==
PROVIDERS: PCP Internal Medicine; Visit Provider Orthopaedic Surgery
DX: R20.0 Anesthesia of skin (principal); G56.23 Lesion of ulnar nerve, bilateral upper limbs
CPT/HCPCS: 99214

== ENCOUNTER → 2023-05-19 12:42 | Outpatient (BNVA) | payer MEDICAID, SELFPAY | PROVIDERS: PCP Internal Medicine; Visit Provider Orthopaedic Surgery | DX: G56.23 Lesion of ulnar nerve, bilateral upper limbs (principal); R20.0 Anesthesia of skin; R20.2 Paresthesia of skin; Z98.890 Other specified postprocedural states | CPT/HCPCS: 99212 ==

== ENCOUNTER → 2023-06-23 14:45 | Outpatient (REF) | payer MEDICAID, SELFPAY ==
--- NOTE | 2023-06-23 14:52 | CA_ITS ---
Transthoracic Echocardiogram Patient (Last, First, Middle): Dariela Rangel E Gender: Female Date of : 1975 Age: 47 Procedure Date: 06/23/2023 Procedure Type: Transthoracic Echocardiogram Location: OP Height: 157.48 cm Weight: 81.65 kg BSA: 1.83 m2 Heart Rate: 79 bpm BP: 125 / 80 mmHg Director Packaging: SARABJIT Grijalva MD: Davidson Pollock MD Medicine Tech: Tavares Armas MD Symptoms: R06.09 OTHER FORMS OF DYSPNES, I71.40 AAA Study Quality: Fair ECG Rhythm: Sinus Conclusions: - Essentially normal study Findings Left Ventricle Normal left ventricular size, thickness, and systolic function. The visually estimated ejection fraction is between 60-65%. Spectral Doppler is indicative of a normal filling pattern. Right Ventricle Normal right ventricular cavity size and systolic function. Atria The left atrium is normal in size. Interatrial shunt cannot be excluded. The right atrium is normal in size. Aortic Valve The aortic valve structure and function is likely normal. There is no aortic valve stenosis. There is no aortic valve regurgitation. Mitral Valve Normal mitral valve structure and function. There is trace mitral valve regurgitation. There is no mitral valve stenosis. Pulmonic Valve The pulmonic valve is likely normal. Tricuspid Valve Likely normal tricuspid valve structure and function. There is trace tricuspid valve regurgitation. The right ventricular systolic pressure is normal. The right ventricular systolic pressure is 20 mmHg. Normal right atrial pressure. There is no evidence of pulmonary hypertension. Great Vessels All visible segments of the aorta are normal in size. The pulmonary artery was not well visualized. Venous The inferior vena cava is normal in size and collapses greater than 50% with inspiration. Pericardium/Pleural There is no evidence of pericardial effusion. Prior Study Comparison No prior study available for comparison. Measurements 2D Linear Measurements IVSd: 0.63 0.6-0.9/0.6-1.0 cm LVIDd: 4.11 3.9-5.3/4.2-5.9 cm LVIDd Index: 2.25 2.4-3.2/2.2-3.1 cm/m2 LVIDs: 2.53 2.0-3.6 cm LVPWd: 0.69 0.7-1.1 cm LA Diam: 2.70 2.7-3.8/3.0-4.0 cm LAIDs Index: 1.48 1.5-2.3 cm/m2 LV Mass: 94.12 67-162/88-224 g LV Mass Index: 51.43 43-95/49-115 g/m2 LVOT Diam: 1.80 3.0+(-)1.3 cm 2D Systolic Function EF 4C: 60.80 >55% EF 2C: 62.20 >55% EF BiP: 59.80 >55% Mitral Valve MV Pk E: 0.98 MV PK A: 0.84 MV Decel Time: 152.00 E/A: 1.20 E'Lateral: 11.50 E'Medial: 10.40 E/E' Med: 9.40 E/E' Lat: 8.50 PHT: 45.00 MVA PHT: 4.89 Decel Beltrami: 6.43 Aortic Valve AoV Pk Syd: 1.22 AoV Mn Syd: 0.89 AoV VTI: 0.24 AoV Pk Grad: 6.00 Aov Mn Grad: 3.00 LARRY Cont.VTI: 2.24 LVOT LVOT Pk Syd: 1.11 LVOT Mn Syd: 0.78 LVOT VTI: 0.21 LVOT Pk Grad: 5.00 LVOT Mn Grad: 3.00 LVOT Diam: 1.80 LVOT Area: 2.54 Diastolic Function MV Pk E: 0.98 MV Pk A: 0.84 E/A: 1.20 E'Medial: 10.40 E/E' Med: 9.40 E' Laterial: 11.50 E/E' Lat: 8.50 Right Ventricle TAPSE (mm): 19.10 TVS' Syd: 12.60 Tricuspid Valve TR Pk Syd: 2.04 TR Pk Grad: 17.00 RA Press: 3.00 RVSP: 20.00 Great Vessels Aorta Sinus of Valsalva: 3.00 2.0-3.5 cm Ao Asc: 3.20 2.1-3.4 cm Pulmonary Valve PV Pk Syd: 1.07 Peak PV Grad: 5.00 Updated in Other Vendor System with Status of Final Tavares Armas MD electronically signed on 06/24/2023 12:53:28 PM with status of Final
== END ==
LOC: HO.CARD 14:45
PROVIDERS: PCP Internal Medicine; Visit Provider Internal Medicine Cardiovascular Disease
DX: R06.09 Other forms of dyspnea (principal); I71.40 Abdominal aortic aneurysm, without rupture, unspecified
CPT/HCPCS: 93306

== ENCOUNTER → 2023-06-23 14:52 | Outpatient (BNV) | payer MEDICAID, SELFPAY | PROVIDERS: PCP Internal Medicine; Visit Provider Internal Medicine Cardiovascular Disease | DX: R06.09 Other forms of dyspnea (principal) | CPT/HCPCS: 93306 ==

== ENCOUNTER 2023-07-28 11:24 | Outpatient (REF) | payer MEDICAID, SELFPAY | END 2023-07-28 11:25 | disposition home or self-care (01) | LOC: HO.HHCLNP 11:24 | PROVIDERS: Visit Provider Nurse Practitioner Primary Care | DX: R30.0 Dysuria (principal) | CPT/HCPCS: 87086 ==

== ENCOUNTER 2023-08-01 09:51 | Outpatient (REF) | payer MEDICAID, SELFPAY ==
--- NOTE | ~2023-08-01 | XR_ITS ---
EXAMINATION: XR CHEST 2 VIEWS CLINICAL INFORMATION: Dyspnea. COMPARISON: None. TECHNIQUE: Frontal and lateral views of the chest were obtained. FINDINGS: The heart, great vessels, pulmonary vasculature and mediastinum are normal. The lungs show no focal infiltrate, effusion or pneumothorax. There is no acute osseous abnormality. XR/XR chest 2V IMPRESSION: No active cardiopulmonary disease.
== END 2023-08-01 09:52 | disposition home or self-care (01) ==
LOC: HO.XRAY 09:51
PROVIDERS: Visit Provider Internal Medicine
DX: R06.00 Dyspnea, unspecified (principal)
CPT/HCPCS: 71046

== ENCOUNTER 2023-08-03 12:30 | Outpatient (REF) | payer MEDICAID, SELFPAY ==
--- NOTE | 2023-08-03 14:28 | PFT_ITS ---
Indication: Dyspnea Spirometry [FEV1 to FVC 93%; FEV1 3.14 L which is 96% predicted; FVC 3.37 L which is 103% predicted. No significant response to bronchodilators noted. Maximum voluntary ventilation 71% predicted] Lung Volumes [Total lung capacity 122% predicted; residual volume 196% predicted] Diffusion Capacity [DLCO 62% predicted] Comparison [Non] Interpretation [No obstructive nor restrictive ventilatory defects identified. No significant response to bronchodilators noted. There is a mild decrease in the maximum voluntary ventilation which could be secondary to deconditioning. Lung volumes demonstrate significant air trapping and also a trend of hyperinflation which could be due to underlying small airways disease. There is a mild diffusion impairment. If asthma is in the differential in methacholine challenge may be helpful in assessing for hyperreactive airways. Clinical correlation warranted.] MTDD
== END 2023-08-03 12:31 | disposition home or self-care (01) ==
LOC: HO.RESP 12:30
PROVIDERS: PCP Internal Medicine; Visit Provider Internal Medicine
DX: R06.00 Dyspnea, unspecified (principal)
CPT/HCPCS: 94010; 94727; 94729

== ENCOUNTER 2023-08-04 14:12 | Outpatient (REF) | payer MEDICAID, SELFPAY ==
[2023-08-04 14:31] LABS: MANUAL DIFF FLAG NO
[2023-08-04 14:46] LABS: Basophils Percent Auto 0.3 % (0-2); Hematocrit 42.1 % (37.0-47.0); Hemoglobin 14.1 g/dl (12.0-16.0); Imm Gran Abs Auto 0.06 X10*3/uL (0.00-0.03); Imm Gran Pct Auto 0.6 % (0.0-0.4); Lymphocytes Absolute Auto 1.6 X10*3/uL (1.2-4.9); Lymphocytes Percent Auto 16.8 % (20-40); Mean Corpuscular HGB Conc 33.5 g/dl (31.0-35.0); Mean Corpuscular Hemoglobin 30.4 pg (27.0-33.0); Mean Corpuscular Volume 90.7 fL (80.0-98.0); Mean Platelet Volume 10.2 fL (9.4-12.3); Monocytes Absolute Auto 0.9 X10*3/uL (0.1-1.2); Monocytes Percent Auto 8.8 % (2-11); Neutrophils Absolute Auto 7.2 x10*3/uL (2.0-8.3); Neutrophils Percent Auto 73.5 % (45-73); Platelet Count 352 X10*3/uL (160-400); Red Blood Count 4.64 X10*6/uL (4.20-5.50); Red Cell Distribution Width 12.6 % (11.0-16.0); White Blood Count 9.8 X10*3/uL (4.8-10.8)
[2023-08-04 15:15] LABS: Anion Gap 11 (12-20); Blood Urea Nitrogen 12 mg/dL (9-16); Calcium 9.4 mg/dL (8.4-10.2); Carbon Dioxide 25 mmol/L (22-29); Chloride 106 mmol/L (96-108); Estimated Glomerular Filt Rate > 60; Glucose Random 90 mg/dL (60-115); Potassium 4.3 mmol/L (3.3-5.1); Sodium 138 mmol/L (135-145)
[2023-08-04 15:36] LABS: Thyroid Stimulating Hormone 1.46 uIU/mL (0.32-4.0)
== END 2023-08-04 14:13 | disposition home or self-care (01) ==
LOC: HO.LAB 14:12
PROVIDERS: PCP Internal Medicine; Visit Provider Student in an Organized Health Care Education/Training Program
DX: R41.82 Altered mental status, unspecified (principal); R11.10 Vomiting, unspecified
CPT/HCPCS: 36415; 80048; 84443; 85025

== ENCOUNTER → 2023-08-11 12:09 | Outpatient (BNVA) | payer MEDICAID, SELFPAY | PROVIDERS: PCP Internal Medicine; Visit Provider Physician Assistant | DX: K21.9 Gastro-esophageal reflux disease without esophagitis (principal); R11.2 Nausea with vomiting, unspecified; R63.2 Polyphagia | CPT/HCPCS: 99212 ==

== ENCOUNTER 2023-08-11 12:11 | Outpatient (AMB) | payer MEDICAID, SELFPAY ==
--- NOTE | 2023-08-11 12:22 | MHC.OFFVIS ---
Intake Vital Signs 08/11/23 12:24 Height 5 ft 2 in Weight 167 lb BMI 30.5 BP 112/77 Blood Pressure Location Lt brachial Position Sitting Pulse 97 Intake Visit Reasons: Esophagitis Intake Note: Patient follow up for Esophagitis. Patient cc: abdominal pain, acid reflex, diarrhea, N/V, no appetite, patient is eating to much sugar at night time and dry mouth. Pocket Assembler Required: No Allergies aripiprazole Allergy (Mild, Verified 05/19/23 12:47) Unknown bupropion Adverse Reaction (Verified 05/19/23 12:47) Unknown divalproex sodium [From Depakote] Adverse Reaction (Verified 05/19/23 12:47) Unknown risperidone Adverse Reaction (Verified 05/19/23 12:47) Unknown Medication List - Last Reconciled 08/11/23 by JAYSON Navarro-Phuong acetaminophen (Tylenol Extra Strength) 500 mg PO Q6H PRN benztropine 1 mg PO DAILY cholecalciferol (vitamin D3) 25 mcg PO DAILY clonazepam 0.5 mg PO BEDTIME fluvoxamine 100 mg PO BID haloperidol 5 mg PO DAILY haloperidol 10 mg PO BEDTIME levothyroxine 75 mcg PO DAILY omeprazole 10 mg PO DAILY paroxetine HCl ER (Paxil CR) 25 mg PO DAILY HPI HPI Comments History of Present Illness Details A 47 y/o female here with her cousin for nausea and vomiting for the past 4 weeks- She began omeprazole 10 mg not much difference She has been confused- seems like she has memory loss-- some moments ok- tremors- awakening at night- craving sugar- She is eating in the middle of the night- her cousin finds wrappers- cereal, milk, cookies, taco wraps- the pt does not remember She says she eats trail mix- she used to have boost a few times a week- now 1-2 times a day. Went to walk in-neg urine culture- then returned w/ sx- txd with antibx x 5 days Goes to day program- bfast/ lunch Last vomited- yesterday not too much typically described as bile like Seeing psych- in 2 days- hysterectomy- no periods Seen by me 02/2022- for constipation No hematemesis, hematochezia, fever or chills- [facility] Medical History (Updated 12/13/23 @ 15:13 by Hayley Marshall PA-C) Cyst of perianal area Hyperthyroidism Vitamin D deficiency BETH on CPAP Major depression Hypothyroidism OCD (obsessive compulsive disorder) Bipolar 1 disorder, mixed Surgical History Hx of colonoscopy Hx of breast surgery History of electroconvulsive therapy History of hysterectomy Family History Mother No problems noted. Father No problems noted. 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 Review of Systems Const All systems reviewed & are unremarkable except as noted in HPI and below Card Denies chest pain and Denies dyspnea Resp Denies dyspnea GI Denies abdominal pain, Denies hematochezia, Denies change in bowel habits, Reports heartburn, Reports nausea and Reports vomiting Neuro Reports behavioral changes and Reports memory loss Psych Reports as per HPI, Reports behavioral changes, Reports difficulty concentrating, Reports memory loss, Denies homicidal ideation and Denies suicidal ideation Physical Exam Vital Signs: Last Vital Signs Pulse 97 08/11/23 12:24 BP 112/77 08/11/23 12:24 BMI result Body Mass Index 30.5 Const General: cooperative, comfortable and no acute distress Orientation/consciousness: patient oriented x3 Eyes Sclerae: sclerae normal Resp Effort & Inspection: normal respiratory effort and able to speak in complete sentences Auscultation: clear to auscultation bilaterally (Distant breath sounds), no rhonchi and no wheezes Cardio Rate: regular rate Rhythm: regular rhythm GI Palpation (GI): Soft to palpation, nontender and no guarding Auscultation: normal bowel sounds Neuro General: patient oriented x3 Extrem General: Yes full ROM Psych Affect: normal affect Attitude: cooperative Assessment & Plan Assessment & Plan (1) Nausea and vomiting: Comment: Nausea vomiting-me be functional /psychiatric component-discussed with gastroenterology technician she is in agreement Multiple medications-has follow-up soon with psychiatry -has begun binge eating late at night Has increased intake of boost twice daily as well as meals Code(s): R11.2 - Nausea with vomiting, unspecified Plan: No vomiting greater than 24 hours (2) Acid reflux: Comment: increase omeprazole 10mg to 20 mg avoid nighttime eating- EGD U/S Code(s): K21.9 - Gastro-esophageal reflux disease without esophagitis (3) Binge eating: Comment: Difficult to assess, binge eating at night gastroenterology technician will try to be more aware however it is difficult as patient does this at while everyone else is sleeping She has been finding wrappers as well as left over food in her bedroom Code(s): R63.2 - Polyphagia Plan: None gastroenterology technician will try to be more aware however it is difficult as patient does this at while everyone else is sleeping Plan omeprazole 20 mg U/S EGD Stop night eating Orders: Orders US abdomen complete 08/11/23 R11.2 - Nausea with vomiting, unspecified EDG - GI Use Only 08/11/23 R11.2 - Nausea with vomiting, unspecified Medications: New omeprazole 20 mg PO DAILY 30 days 30 caps 5RF Patient Instructions: Increased omeprazole Reflux precautions Stay upright 2-3 hours after eating Avoid eating during night Will get abdominal ultrasound to assess gallbladder Will schedule for EGD if need will proceed Regulatory And Compliance Technician to call after ultrasound for results Coding Level of Care Code New Pt Level 4 (10544) Diagnoses Nausea and vomiting R11.2 Acid reflux K21.9 Binge eating R63.2 Time Spent (min) 40
[2023-08-11 12:24] VITALS: BP 112/77; PULSE 97; BMI 30.5
== END 2023-08-11 13:31 | disposition home or self-care (01) ==
PROVIDERS: PCP Internal Medicine; Visit Provider Physician Assistant
DX: R11.2 Nausea with vomiting, unspecified (principal); K21.9 Gastro-esophageal reflux disease without esophagitis; R63.2 Polyphagia
CPT/HCPCS: 99214

== ENCOUNTER 2023-09-16 07:57 | Outpatient (REF) | payer MEDICAID, SELFPAY ==
--- NOTE | ~2023-09-16 | MM_ITS ---
EXAMINATION: MM SCREENING DIGITAL BREAST TOMOSYNTHESIS, BILATERAL CLINICAL INFORMATION: Screening. Asymptomatic. The patient is status post left breast surgery for benign disease, a complex sclerosing lesion. COMPARISON: Mammography: This study is compared with prior exams dating back to 2019. TECHNIQUE: Digital breast tomosynthesis is performed in both the craniocaudal and mediolateral oblique views along with computer-aided detection (CAD). Synthesized 2D images are generated from the tomosynthesis. FINDINGS: The breasts are heterogeneously dense, which may obscure small masses (ACR BI-RADS breast composition Category c). There are no significant masses, abnormal calcifications, or other abnormalities. There are postsurgical changes in the central portion of the left breast and left nipple areolar complex. MM/MM tomosynthesis screening BI IMPRESSION: No mammographic evidence of malignancy. ASSESSMENT: BI-RADS BI-RADS 2 - Benign Findings RECOMMENDATION: Routine annual mammography screening. 1 year F/U This examination should not preclude the clinical evaluation of a suspicious palpable abnormality. This patient's information was entered into a reminder system with a target due date for their next mammogram.
--- NOTE | ~2023-09-16 | US_ITS ---
EXAMINATION: US ABDOMEN COMPLETE CLINICAL INFORMATION: Nausea with vomiting, unspecified. COMPARISON: None available. TECHNIQUE: Real-time imaging of the abdominal viscera. FINDINGS: PANCREAS: Head and body appear unremarkable. Tail not visualized. ABDOMINAL AORTA: The proximal, mid, and distal segments appear unremarkable in caliber. INFERIOR VENA CAVA: Visualized portions are normal. LIVER: The liver is normal in size. The liver contour is normal. Parenchymal echogenicity appears unremarkable. No focal hepatic lesion appreciated. No intrahepatic biliary duct dilatation is seen. GALLBLADDER: The gallbladder is physiologically distended without evidence of stones, sludge, polyps, wall thickening or pericholecystic fluid. Technologist reports negative sonographic Roberts's sign. COMMON BILE DUCT: Normal in caliber measuring 0.6 cm in diameter. RIGHT KIDNEY: No hydronephrosis. No renal calculi or focal parenchymal lesion identified. The kidney measures 9.8 cm in maximum dimension. LEFT KIDNEY: No hydronephrosis. No renal calculi or focal parenchymal lesion identified. The kidney measures 10.5 cm in maximum dimension. SPLEEN: The spleen measures 9.5 cm in maximum dimension. FREE FLUID: None. US/US abdomen complete IMPRESSION: Normal abdominal ultrasound examination.
== END 2023-09-16 07:58 | disposition home or self-care (01) ==
LOC: HO.US 07:57
PROVIDERS: PCP Internal Medicine; Visit Provider Physician Assistant
DX: Z12.31 Encounter for screening mammogram for malignant neoplasm of breast (principal); R11.2 Nausea with vomiting, unspecified
CPT/HCPCS: 76700; 77063; 77067

== ENCOUNTER 2023-09-16 08:36 | Outpatient (REF) | payer MEDICAID, SELFPAY | END 2023-09-16 08:37 | disposition home or self-care (01) | LOC: HO.MAMMO 08:36 | PROVIDERS: PCP Internal Medicine; Visit Provider Internal Medicine | DX: Z13.89 Encounter for screening for other disorder (principal) ==

== ENCOUNTER → 2023-09-16 14:15 | Outpatient (BNV) | payer MEDICAID, SELFPAY | PROVIDERS: PCP Internal Medicine; Visit Provider Radiology Diagnostic Radiology | DX: Z12.31 Encounter for screening mammogram for malignant neoplasm of breast (principal) | CPT/HCPCS: 77063; 77067 ==

== ENCOUNTER 2023-10-07 07:39 | Outpatient (AMB) | payer MEDICAID, SELFPAY ==
--- NOTE | 2023-10-07 07:45 | A.OFFVIS_ITS ---
Intake Vital Signs 10/07/23 07:57 Height 5 ft 2 in Weight 177 lb BMI 32.4 BP 122/77 Blood Pressure Location Lt brachial Position Sitting Pulse 88 Intake Visit Reasons: 8 week follow up Intake Note: Patient follow up Patient cc: Constipation on and off . Denies any other GI issues. 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: No Accompanied by: Family/Other Allergies aripiprazole Allergy (Mild, Verified 10/07/23 07:50) Unknown bupropion Adverse Reaction (Verified 10/07/23 07:50) Unknown divalproex sodium [From Depakote] Adverse Reaction (Verified 10/07/23 07:50) Unknown risperidone Adverse Reaction (Verified 10/07/23 07:50) Unknown Medication List - Last Reconciled 10/07/23 by Hayley Marshall PA-C acetaminophen (Tylenol Extra Strength) 500 mg PO Q6H PRN benztropine 1 mg PO DAILY cholecalciferol (vitamin D3) 25 mcg PO DAILY clonazepam 0.5 mg PO BEDTIME fluoxetine 20 mg PO DAILY levothyroxine 75 mcg PO DAILY omeprazole 20 mg PO DAILY 30 days HPI HPI Comments History of Present Illness Details A 47 y/o female with psych- dx- 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 Nausea and vomiting- has resolved for the most part. we had Increased omeprazole, discussed Reflux precautions Stay upright 2-3 hours after eating Stays well hydrated Avoid eating during night was recommended- however she continues to do this Will got abdominal ultrasound to assess gallbladder- US/US abdomen complete IMPRESSION: Normal abdominal ultrasound examination. Electrical Continuity Inspector facilitate visit, very supportive interactive with patient-she is working at trying to get her on a better daily routine-seems to have noted improvement No nausea, vomiting, hematemesis, hematochezia fever or chills PFSH Medical History Bipolar 1 disorder, mixed Cyst of perianal area Hyperthyroidism Hypothyroidism Major depression OCD (obsessive compulsive disorder) BETH on CPAP Vitamin D deficiency Surgical History Hx of colonoscopy Hx of breast surgery History of electroconvulsive therapy History of hysterectomy Family History Mother No problems noted. Father No problems noted. 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 Review of Systems Const All systems reviewed & are unremarkable except as noted in HPI and below Card Denies chest pain and Denies dyspnea Resp Denies dyspnea GI Denies abdominal pain, Denies change in bowel habits, Denies nausea and Denies vomiting Physical Exam Vital Signs: Last Vital Signs Pulse 88 10/07/23 07:57 BP 122/77 10/07/23 07:57 BMI result Body Mass Index 32.4 Very good spirits Const General: cooperative, healthy appearing, comfortable and no acute distress Nutritional Appearance: overweight Orientation/consciousness: patient oriented x3 Limitations: language barrier Eyes Sclerae: sclerae normal Resp Effort & Inspection: normal respiratory effort and able to speak in complete sentences Auscultation: clear to auscultation bilaterally, no rales, no rhonchi and no wheezes Cardio Rate: regular rate Rhythm: regular rhythm Heart sounds: S1 normal heart sound present and S2 normal heart sound present GI Palpation (GI): Soft to palpation and nontender Auscultation: normal bowel sounds Skin General skin exam: no rashes or lesions noted Neuro General: patient oriented x3 Extrem General: Yes full ROM Psych Appearance: well kempt Speech and movement: Clear speech present Attitude: cooperative Assessment & Plan Assessment & Plan (1) Binge eating: Comment: Less binge eating at night 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's 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 more aware Psych medications have been readjusted Code(s): R63.2 - Polyphagia Plan: Continue to monitor (2) Acid reflux: Comment: increase omeprazole 20 mg-has been beneficial avoid nighttime eating- EGD-if indicated U/S reviewed Code(s): K21.9 - Gastro-esophageal reflux disease without esophagitis (3) Nausea and vomiting: Comment: Resolved Code(s): R11.2 - Nausea with vomiting, unspecified (4) Constipated: Comment: Likely medication-plays a role May take Colace daily, for mild constipation- Avoid straining with hemorrhoids Maintain well hydration, high-fiber diet Code(s): K59.00 - Constipation, unspecified Plan Follow-up 6 months Continue PPI Consistent bowel regimen Maintain high-fiber diet Call with any concerns Medications: New docusate sodium (Colace) 200 mg (2 x 100 mg) PO BEDTIME 60 caps 5RF Patient Instructions: Continue to monitor sx Continue PPI Reflux precautions reviewed Will maintain high-fiber diet stay well hydrated to avoid further constipation Will follow-up 6 months per 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
[2023-10-07 07:57] VITALS: BP 122/77; PULSE 88; BMI 32.4
== END 2023-10-07 09:10 | disposition home or self-care (01) ==
PROVIDERS: PCP Internal Medicine; Visit Provider Physician Assistant
DX: R63.2 Polyphagia (principal); K21.9 Gastro-esophageal reflux disease without esophagitis; R11.2 Nausea with vomiting, unspecified; K59.00 Constipation, unspecified
CPT/HCPCS: 99213

== ENCOUNTER → 2023-10-07 07:39 | Outpatient (BNVA) | payer MEDICAID, SELFPAY | PROVIDERS: PCP Internal Medicine; Visit Provider Physician Assistant | DX: K59.00 Constipation, unspecified (principal); K21.9 Gastro-esophageal reflux disease without esophagitis; R63.2 Polyphagia; R11.2 Nausea with vomiting, unspecified | CPT/HCPCS: 99212 ==

== ENCOUNTER 2023-10-20 19:41 | Inpatient (IN) | payer MEDICAID, OTHER, SELFPAY ==
[2023-10-20 19:59] VITALS: BP 149/97; PULSE 106; RESP 18; TEMP 36.9; O2SAT 99; BMI 32.4
[2023-10-20 20:24] LABS: MANUAL DIFF FLAG NO
[2023-10-20 20:27] LABS: Appearance Urine Cloudy; Color Urine Yellow; Glucose Urine UA Negative (Negative); Leukocyte Esterase Urine Small (1+) (Negative); Nitrite Urine Negative (Negative); Specific Gravity - Urine <= 1.005 (1.005-1.025); UMIC TRIGGER UACC YES; Urine Blood Negative (Negative); Urine Ketones Negative (Negative); Urine Protein Negative (Neg-Trace)
[2023-10-20 20:27] LABS: Basophils Percent Auto 0.3 % (0-2); Hematocrit 40.7 % (37.0-47.0); Hemoglobin 14.2 g/dl (12.0-16.0); Imm Gran Abs Auto 0.02 X10*3/uL (0.00-0.03); Imm Gran Pct Auto 0.2 % (0.0-0.4); Lymphocytes Absolute Auto 2.5 X10*3/uL (1.2-4.9); Lymphocytes Percent Auto 26.8 % (20-40); Mean Corpuscular HGB Conc 34.9 g/dl (31.0-35.0); Mean Corpuscular Hemoglobin 30.1 pg (27.0-33.0); Mean Corpuscular Volume 86.2 fL (80.0-98.0); Mean Platelet Volume 9.5 fL (9.4-12.3); Monocytes Absolute Auto 0.8 X10*3/uL (0.1-1.2); Monocytes Percent Auto 8.7 % (2-11); Platelet Count 359 X10*3/uL (160-400); Red Blood Count 4.72 X10*6/uL (4.20-5.50); White Blood Count 9.3 X10*3/uL (4.8-10.8)
[2023-10-20 20:28] LABS: UPreg QC Valid YES; Urine Pregnancy NEGATIVE (NEGATIVE)
--- NOTE | 2023-10-20 20:29 | MHC.CARE ---
[facility] contacted Care Team to alert us of pt's expect. Pt is on a section 12 and evaluated by [facility]. Pt presents with severe depression, crying, increased depression and significant memory impairments unknown if this is contributed to ECT. [facility] states that memory impairments are new.
[2023-10-20 20:34] LABS: Amphetamine Screen Urine Not Detected (Not Detect); Barbiturates, Urine Not Detected (Not Detect); Benzodiazepines Screen Urine Not Detected (Not Detect); Cannabinoid Screen Urine Not Detected (Not Detect); Cocaine Screen Urine Not Detected (Not Detect); Fentanyl, urine Not Detected (Not Detect); Opiate Screen Urine Not Detected (Not Detect); Phencyclidine Screen Urine Not Detected (Not Detect)
[2023-10-20 20:36] LABS: Ethanol < 10 mg/dL
[2023-10-20 20:39] LABS: Alanine Aminotransferase 30 U/L (0-31); Albumin Level 4.5 g/dL (3.5-5.0); Alkaline Phosphatase 70 U/L (39-117); Anion Gap 13 (12-20); Aspartate Amino Transferase 21 U/L (5-31); Bilirubin Total 0.4 mg/dL (0.0-1.0); Blood Urea Nitrogen 12 mg/dL (9-16); Carbon Dioxide 26 mmol/L (22-29); Chloride 107 mmol/L (96-108); Creatinine Clr Calc Pharmacy 84.5; Estimated Glomerular Filt Rate > 60; Glucose Random 109 mg/dL (60-115); Potassium 4.1 mmol/L (3.3-5.1); Sodium 142 mmol/L (135-145); Total Protein 7.5 g/dL (6.5-8.0)
[2023-10-20 20:40] LABS: COVID-19 Test Negative (Negative); IDNOW Serial# 55D5AD1C
[2023-10-20 20:42] LABS: Bacteria Urine 2+ (None Seen); Hyaline Casts Urine 0-2 /LPF (0-2); RBC Urine 0-2 /HPF (0-2); UACC Culture Trigger YES
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
--- NOTE | 2023-10-21 | ECG_ITS ---
Test Reason : med clearance Blood Pressure : / mmHG Vent. Rate : 082 BPM Atrial Rate : 082 BPM P-R Int : 144 ms QRS Dur : 088 ms QT Int : 366 ms P-R-T Axes : 059 001 026 degrees QTc Int : 427 ms Normal sinus rhythm Normal ECG When compared with ECG of 10-MAY-2021 14:20, No significant change was found Referred By: Kellee Dyer Electronically Signed By:ERNIE RILEY MD
[2023-10-21 01:17] VITALS: BP 134/94; PULSE 104; RESP 18; TEMP 36.4; O2SAT 98
--- NOTE | 2023-10-21 04:13 | PC.NURSE ---
Patient currently in bed appears sleeping, slept most part of the night, no distress observed/reported, VSS, med rec completed/approved/OCT active, med rec completed by calling Lise who is her HCP, patient was assessed by [facility] in the community, disposition is section 12 inpatient bed search, will continue to monitor.
[2023-10-21] MEDS: Omeprazole 20 MG CAPSULE.DR PO (05:47)
[2023-10-21] MEDS: Levothyroxine Sodium 75 MCG TABLET PO (05:47)
--- NOTE | 2023-10-21 07:08 | PC.NURSE ---
Assumed care of patient at 0700, patient appears to be sleeping, respirations even and unlabored, no apparent distress at this time. Sec 12, inpt bedsearch at this time
[2023-10-21] MEDS: FLUoxetine HCl 20 MG CAPSULE PO (08:13)
[2023-10-21] MEDS: Cholecalciferol (Vitamin D3) 25 MCG TABLET PO (08:13)
[2023-10-21] MEDS: Benztropine Mesylate 1 MG TABLET PO ×2 (08:13→21:28)
[2023-10-21] MEDS: clonazePAM 1 MG TABLET PO ×3 (10:16→21:28)
[2023-10-21 10:40] VITALS: BP 125/88; PULSE 92; RESP 20; TEMP 36.7; O2SAT 100
--- NOTE | 2023-10-21 12:32 | PC.NURSE ---
[facility] called this RN to request update on patient's status. long term seemed confused as to why the patient was here. Update provided. Felicia DOWD is the nurse at the patient's prison if any updates occur ([phone])
--- NOTE | 2023-10-21 12:50 | PC.NURSE ---
Patient reporting increased anxiety, pacing around BH pod, occasionally exclaiming that she is not feeling good . This RN sent MD Johann a tiger text for something other than PRN that was previously administered, no new orders at this time
[2023-10-21 19:41] VITALS: BP 123/90; PULSE 128; RESP 22; TEMP 36.4; O2SAT 98
[2023-10-21] MEDS: traZODone HCL 50 MG TABLET PO (21:28)
[2023-10-21] MEDS: hydrOXYzine HCL 25 MG TABLET PO (21:28)
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
[2023-10-22] MEDS: Omeprazole 20 MG CAPSULE.DR PO (06:02)
[2023-10-22] MEDS: Levothyroxine Sodium 75 MCG TABLET PO (06:02)
[2023-10-22] MEDS: FLUoxetine HCl 20 MG CAPSULE PO (08:37)
[2023-10-22] MEDS: Cholecalciferol (Vitamin D3) 25 MCG TABLET PO (08:37)
[2023-10-22] MEDS: Benztropine Mesylate 1 MG TABLET PO ×2 (08:37→19:14)
[2023-10-22 08:40] VITALS: BP 119/82; PULSE 91; RESP 18; TEMP 36.3; O2SAT 100
[2023-10-22 08:43] LABS: Estimated Average Glucose 103 mg/dL; Hemoglobin A1c % 5.2 % (<6.0)
[2023-10-22 08:53] LABS: Cholesterol 184 mg/dL (<200); HDL Cholesterol 58 mg/dL (>40); LDL Cholesterol Calculated 107 mg/dL (<100); Magnesium 2.4 mg/dL (1.6-2.6); Triglycerides 96 mg/dL (<150)
[2023-10-22 09:09] LABS: Free T4 (Free Thyroxine) 1.13 ng/dL (0.71-1.85); Thyroid Stimulating Hormone 0.72 uIU/mL (0.32-4.0)
[2023-10-22 09:22] LABS: Folate 12.7 ng/mL (> or = 4.0); Vitamin B12 1312 pg/mL (200-900)
[2023-10-22] MEDS: clonazePAM 1 MG TABLET PO ×2 (11:44→19:15)
--- NOTE | 2023-10-22 11:53 | HO.PSYADMNOT ---
HPI Date of Service: 10/22/23 Chief Complaint: Bipolar Disorder Sources of Information: patient interviewed, chart reviewed and crisis/core team assessment reviewed HPI Subjective Notes: Wilcox Warning and Conditional Voluntary Narrative: Pt seen and discussed in treatment team. pt admitted to from [facility] where she presented via ambulance due to worsening depression and anxiety; She has been throwing herself on the floor and punching rothman. She was evaluated by [facility] and sectioned 12 due to safety concerns. She is very labile, pacing, crying, wringing her hands. She drops to her Knees begging for help saying she is desperately anxious and does not care about anything. She is physically intrusive standing very close and touching this underwriter mortgage loan repeatedly although able to be redirected. She denies SI or Hi. No overt hallucinations. She is markedly disorganized and preoccupied. She has therapy and psychiatry at [facility]. She states she has felt depressed and anxious for 30 years. Past Psychiatric History: She has history of Bipolar disorder and OCD. [facility] She had trial of E[facility]- 9 treatments, with some moderate improvement. She had course of ECT in [place] years ago. She had many trial of medications including clozapine, Depakote, Lamictal, SSRIs caused severe agitation. Medical Evaluation Reviewed: Yes medically cleared [facility] Medical History (Updated 10/22/23 @ 16:22 by Jeanette Celaya APRN) Depression Cyst of perianal area Hyperthyroidism Vitamin D deficiency BETH on CPAP Major depression Hypothyroidism OCD (obsessive compulsive disorder) Bipolar 1 disorder, mixed Surgical History Hx of colonoscopy Hx of breast surgery History of electroconvulsive therapy History of hysterectomy Family History: has a supportive cousin Social History: limited Substance History: denies Trauma History: pt unable to answer at this time due to mental state Diagnostics Vital Signs (24Hr): Vital Signs - 24 hr 10/21/23 19:41 10/22/23 08:40 Temperature 97.5 F 97.3 F Pulse Rate 128 H 91 Respiratory Rate 22 H 18 Blood Pressure 123/90 H 119/82 Pulse Oximetry 98 100 Oxygen Delivery Method Room Air Room Air BMI result Body Mass Index 32.4 Labs 10/20/23 20:19 10/20/23 20:19 Labs: Laboratory Results - last 48 hr 10/20/23 10/20/23 10/20/23 20:11 20:18 20:19 WBC 9.3 RBC 4.72 Hgb 14.2 Hct 40.7 MCV 86.2 MCH 30.1 MCHC 34.9 RDW 12.0 Plt Count 359 MPV 9.5 Immature Gran % (Auto) 0.2 Neut % (Auto) 64.0 Lymph % (Auto) 26.8 Stephenson % (Auto) 8.7 Eos % (Auto) 0.0 Baso % (Auto) 0.3 Lymph # (Auto) 2.5 Stephenson # (Auto) 0.8 Eos # (Auto) 0.0 Baso # (Auto) 0.0 Abs Immat Gran (auto) 0.02 Absolute Neuts (auto) 6.0 Absolute Nucleated RBC 0.000 Nucleated RBC % (auto) 0.0 Sodium 142 Potassium 4.1 Chloride 107 Carbon Dioxide 26 Anion Gap 13 BUN 12 Creatinine 0.79 Estim Creat Clear Calc 84.5 Estimated GFR > 60 Random Glucose 109 Estimat Average Glucose Hemoglobin A1c % Calcium 10.0 D Magnesium Total Bilirubin 0.4 AST 21 ALT 30 Alkaline Phosphatase 70 Total Protein 7.5 Albumin 4.5 Triglycerides Cholesterol LDL Cholesterol, Calc HDL Cholesterol Vitamin B12 Folate TSH Free T4 Urine Color Yellow Urine Appearance Cloudy Urine pH 7.0 Ur Specific [place] <= 1.005 Urine Protein Negative Urine Glucose (UA) Negative Urine Ketones Negative Urine Blood Negative Urine Nitrite Negative Ur Leukocyte Esterase Small (1+) H Urine RBC 0-2 Urine WBC 6-10 H Ur Squamous Epith Cells 6-10 Urine Bacteria 2+ Hyaline Casts 0-2 Urine Test NEGATIVE Urine Opiates Screen Not Detected Urine Fentanyl Screen Not Detected Ur Barbiturates Screen Not Detected Ur Phencyclidine Scrn Not Detected Ur Amphetamines Screen Not Detected U Benzodiazepines Scrn Not Detected Urine Cocaine Screen Not Detected U Marijuana (THC) Screen Not Detected Ethyl Alcohol < 10 COVID-19 ([facility]) Negative COVID-19 Clin Com See Note 10/22/23 08:14 WBC RBC Hgb Hct MCV MCH MCHC RDW Plt Count MPV Immature Gran % (Auto) Neut % (Auto) Lymph % (Auto) Stephenson % (Auto) Eos % (Auto) Baso % (Auto) Lymph # (Auto) Stephenson # (Auto) Eos # (Auto) Baso # (Auto) Abs Immat Gran (auto) Absolute Neuts (auto) Absolute Nucleated RBC Nucleated RBC % (auto) Sodium Potassium Chloride Carbon Dioxide Anion Gap BUN Creatinine Estim Creat Clear Calc Estimated GFR Random Glucose Estimat Average Glucose 103 Hemoglobin A1c % 5.2 Calcium Magnesium 2.4 Total Bilirubin AST ALT Alkaline Phosphatase Total Protein Albumin Triglycerides 96 Cholesterol 184 LDL Cholesterol, Calc 107 H HDL Cholesterol 58 Vitamin B12 1312 H Folate 12.7 TSH 0.72 Free T4 1.13 Urine Color Urine Appearance Urine pH Ur Specific [place] Urine Protein Urine Glucose (UA) Urine Ketones Urine Blood Urine Nitrite Ur Leukocyte Esterase Urine RBC Urine WBC Ur Squamous Epith Cells Urine Bacteria Hyaline Casts Urine Test Urine Opiates Screen Urine Fentanyl Screen Ur Barbiturates Screen Ur Phencyclidine Scrn Ur Amphetamines Screen U Benzodiazepines Scrn Urine Cocaine Screen U Marijuana (THC) Screen Ethyl Alcohol COVID-19 ([facility]) COVID-19 Clin Com Meds/Allergies Meds Home Medications Medication Instructions Recorded Confirmed Type benztropine 1 mg tablet 1 mg PO BID 10/20/23 10/20/23 History cholecalciferol (vitamin D3) 25 25 mcg PO DAILY 10/20/23 10/20/23 History mcg (1,000 unit) capsule (Vitamin D3) clonazepam 1 mg tablet 1 mg PO TID PRN panic attack 10/20/23 10/20/23 History fluoxetine 20 mg capsule (Prozac) 20 mg PO DAILY 10/20/23 10/20/23 History haloperidol decanoate 100 mg/mL 100 mg IM QMONTH 10/20/23 10/20/23 History intramuscular solution (Haldol Decanoate) Allergies Allergies Allergy/AdvReac Type Severity Reaction Status Date / Time aripiprazole Allergy Mild Unknown Verified 10/07/23 07:50 bupropion AdvReac Unknown Verified 10/07/23 07:50 divalproex sodium AdvReac Unknown Verified 10/07/23 07:50 [From Depakote] risperidone AdvReac Unknown Verified 10/07/23 07:50 Mental Status Exam Mental Status Exam Patient Appearance: Disheveled and Unkempt Patient Orientation: Person and Situation Level of Consciousness: Restless Patient Behavior: Talkative, Restless, Anxious, Fearful, Invasion - Personal Space and Crying Mood Description: Anxious and Labile Affect Description: Anxious and Labile Patient Cognition Impaired: Yes Ability to Follow Directions: Fair Speech Pattern: Perseverating and Rapid Hallucinations: None Delusions: Not Present Thought Process: Distracted and Rumination Thought Content: positive for Obsessional Thoughts Judgement: Poor Assessment & Plan Assessment & Plan (1) Bipolar 1 disorder, mixed: Status: Acute Code(s): F31.60 - Bipolar disorder, current episode mixed, unspecified (2) OCD (obsessive compulsive disorder): Status: Acute Qualifiers: Obsessive-compulsive disorder type: mixed obsessional thoughts and acts Qualified Code(s): F42.2 - Mixed obsessional thoughts and acts Code(s): F42.9 - Obsessive-compulsive disorder, unspecified Plan 47 yo woman with chronic Bipolar Disorder and OCD with severe anxiety and restlessness, intrusive behavior, ruminating and pacing in need of hospital treatment admitted on CV to M5. plan admit to M5 CV collect collateral information discussed adding vraylar 1.5 mg cap daily to pt regimen; discussed risk vs benefits and possible side effect; pt agrees to trial - will start today Patient educated on: diagnosis, medication risk/benefits and therapeutic strategies Reason for continued inpatient stay Substantial Risk for: inability to function and rapid decompensation Statement Statement: I have reviewed the history and physical and performed a pertinent examination on my patient. No changes have occurred unless specified. If the History and Physical was not performed prior to admission, the Hospitalist's service will be consulted for completing the admission physical. Time Spent With Patient Time: Total time managing care of this patient today __60__ minutes.
[2023-10-22 12:05] VITALS: BMI 31.5
[2023-10-22] MEDS: Cariprazine HCl 1.5 MG CAPSULE PO (13:57)
[2023-10-22 17:50] VITALS: BP 118/79; PULSE 112; RESP 16; TEMP 36.4; O2SAT 100
[2023-10-22] MEDS: hydrOXYzine HCL 25 MG TABLET PO (19:15)
[2023-10-22] MEDS: traZODone HCL 50 MG TABLET PO (22:06)
[2023-10-23] MEDS: Levothyroxine Sodium 75 MCG TABLET PO (06:14)
[2023-10-23] MEDS: Omeprazole 20 MG CAPSULE.DR PO (06:15)
[2023-10-23] MEDS: Benztropine Mesylate 1 MG TABLET PO ×2 (08:17→20:30)
[2023-10-23] MEDS: Cholecalciferol (Vitamin D3) 25 MCG TABLET PO (08:17)
[2023-10-23] MEDS: FLUoxetine HCl 20 MG CAPSULE PO (08:17)
[2023-10-23] MEDS: Cariprazine HCl 1.5 MG CAPSULE PO (08:17)
[2023-10-23 08:18] VITALS: BP 128/86; PULSE 98; RESP 16; TEMP 36.3; O2SAT 100
[2023-10-23] MEDS: clonazePAM 1 MG TABLET PO (11:44)
--- NOTE | 2023-10-23 15:18 | P.PNPSI_ITS ---
Subjective Subjective Date of Service: 10/23/23 Reason For Visit: Bipolar Disorder Subjective Notes: Conditional Voluntary Interim History: Pt seen and discussed in treatment team. 47 yo woman with chronic Bipolar Disorder and OCD with severe anxiety and restlessness, intrusive behavior, ruminating and pacing admitted to hospital on CV. Pt pacing hallways today; anxious perseverating, tearful, physically intrusive at times but does respond to redirection; needs frequent reassurance and redirection. Pt had MRI of brain without contrast - done by [facility] in [facility] on September 17, 2023. The MRI shows lesions on frontal lobe and demyelinating disease could not be ruled out. TW called pts cousin Sayda and left message to ask if pt had an outpatient neurologist following her. asked her to call back or email SW if able. Medication Compliance: Yes Side effects from medications: No Attending Groups: No Review of Systems Acute medical concerns: No Medical Review of Systems: unchanged Review of Systems Review of Systems Constitutional : No Weight loss, No Fever, No Chills, No Night Sweats, No Fatigue, No Malaise ENT/Mouth : No Hearing loss, No Ear Pain, No Nasal Congestion, No Sinus Pain, No Hoarseness, No sore throat, No Rhinorrhea, No Swallowing Difficulty Eyes: No Eye Pain, No Swelling, No Redness, No Foreign Body, No Discharge, No Vision Changes Cardiovascular : No Chest Pain, No SOB, No Dyspnea on Exertion, No Orthopnea, No Edema, No Palpitations Respiratory : No Cough, No Sputum, No Wheezing, No Smoke Exposure, No Dyspnea Gastrointestinal : No Nausea, No Vomiting, No Diarrhea, No Constipation, No abdominal Pain, No Hematochezia, No Melena Genitourinary : no irregular bleeding, No Dysuria, No Urinary Frequency, No Hematuria, No Urinary Incontinence, No Urgency, No Flank Pain, No Urinary Flow Changes, No Hesitancy Musculoskeletal : No joint pain, No Myalgias, No Joint Swelling Skin : No Skin Lesions, No rash Neuro : No Weakness, No Numbness, No Paresthesias, No Loss of Consciousness, No Dizziness, No Headache Psych : Complaining of anxiety and depression, no SI or HI Heme/Lymph: No Bruising, No Bleeding,No Lymphadenopathy Endocrine : No Polyuria, No Polydipsia, No Temperature Intolerance Mental Status Exam Mental Status Exam Patient Appearance: Disheveled and Unkempt Patient Orientation: Person and Situation Level of Consciousness: Restless Patient Behavior: Talkative, Restless, Anxious, Fearful, Invasion - Personal Space and Crying Mood Description: Anxious and Labile Affect Description: Anxious and Labile Patient Cognition Impaired: Yes Ability to Follow Directions: Fair Speech Pattern: Perseverating and Rapid Hallucinations: None Delusions: Not Present Thought Process: Distracted and Rumination Thought Content: positive for Obsessional Thoughts and positive for Preoccupation Judgement: Poor Diagnostics Vital Signs (24Hr): Vital Signs - 24 hr 10/22/23 17:50 10/23/23 08:18 Temperature 97.5 F 97.3 F Pulse Rate 112 H 98 Respiratory Rate 16 16 Blood Pressure 118/79 128/86 Pulse Oximetry 100 100 Oxygen Delivery Method Room Air Room Air BMI result Body Mass Index 31.5 Labs 10/20/23 20:19 10/20/23 20:19 Labs: Laboratory Results - last 48 hr 10/22/23 08:14 Estimat Average Glucose 103 Hemoglobin A1c % 5.2 Magnesium 2.4 Triglycerides 96 Cholesterol 184 LDL Cholesterol, Calc 107 H HDL Cholesterol 58 Vitamin B12 1312 H Folate 12.7 TSH 0.72 Free T4 1.13 Medications Medications Current Medications Acetaminophen (Acetaminophen 325 Mg Tablet) 650 mg PO Q6H PRN PRN Reason: Headache/Pain Mild Scale (1-3) Al Hydroxide/Mg Hydroxide (Magnesium Hydrox/Alum Hydrox 30 Ml Oral.Susp) 30 ml PO Q6H PRN PRN Reason: Heartburn/Nausea Benztropine Mesylate (Benztropine Mesylate 1 Mg Tablet) 1 mg PO BID [facility] Last Admin: 10/23/23 08:17 Dose: 1 mg Cariprazine (Cariprazine Hcl 1.5 Mg Capsule) 1.5 mg PO DAILY [facility] Last Admin: 10/23/23 08:17 Dose: 1.5 mg Clonazepam (Clonazepam 1 Mg Tablet) 1 mg PO TID PRN PRN Reason: panic attack Last Admin: 10/23/23 11:44 Dose: 1 mg Fluoxetine HCl (Fluoxetine Hcl 20 Mg Capsule) 20 mg PO DAILY [facility] Last Admin: 10/23/23 08:17 Dose: 20 mg Haloperidol Decanoate (Haloperidol Decanoate 50 Mg/Ml Vial) 100 mg IM Q30D [facility] Hydroxyzine HCl (Hydroxyzine Hcl 25 Mg Tablet) 25 mg PO Q6H PRN PRN Reason: Anxiety Last Admin: 10/22/23 19:15 Dose: 25 mg Levothyroxine Sodium (Levothyroxine Sodium 75 Mcg Tablet) 75 mcg PO DAILY@629 [facility] Last Admin: 10/23/23 06:14 Dose: 75 mcg Magnesium Hydroxide (Milk Of Magnesia 30 Ml Oral.Susp) 30 ml PO DAILY PRN PRN Reason: Constipation Omeprazole (Omeprazole 20 Mg Capsule.Dr) 20 mg PO DAILY@629 [facility] Last Admin: 10/23/23 06:15 Dose: 20 mg Trazodone HCl (Trazodone Hcl 50 Mg Tablet) 50 mg PO BEDTIME MRX1 PRN PRN Reason: Insomnia Last Admin: 10/22/23 22:06 Dose: 50 mg Vitamin D (Cholecalciferol (Vitamin D3) 25 Mcg Tablet) 25 mcg PO DAILY [facility] Last Admin: 10/23/23 08:17 Dose: 25 mcg Allergies Allergies Allergy/AdvReac Type Severity Reaction Status Date / Time aripiprazole Allergy Mild Unknown Verified 10/07/23 07:50 bupropion AdvReac Unknown Verified 10/07/23 07:50 divalproex sodium AdvReac Unknown Verified 10/07/23 07:50 [From Depakote] risperidone AdvReac Unknown Verified 10/07/23 07:50 Assessment & Plan Assessment & Plan (1) Bipolar 1 disorder, mixed: Status: Acute Code(s): F31.60 - Bipolar disorder, current episode mixed, unspecified (2) OCD (obsessive compulsive disorder): Qualifiers: Obsessive-compulsive disorder type: mixed obsessional thoughts and acts Qualified Code(s): F42.2 - Mixed obsessional thoughts and acts Status: Acute Code(s): F42.9 - Obsessive-compulsive disorder, unspecified Plan 47 yo woman with chronic Bipolar Disorder and OCD with severe anxiety and restlessness, intrusive behavior, ruminating and pacing in need of hospital treatment admitted on CV to M5. 10/23 Continue vraylar 1.5 mg daily neuro consult ordered plan admit to M5 CV collect collateral information discussed adding vraylar 1.5 mg cap daily to pt regimen; discussed risk vs benefits and possible side effect; pt agrees to trial - will start today Patient educated on: diagnosis, medication risk/benefits and therapeutic strategies Informed Consent: understands and further education needed Reason for continued inpatient stay Substantial Risk for: inability to function, rapid decompensation and med/psych decompensation Time Spent With Patient Time: Total time managing care of this patient today ____ minutes.
[2023-10-23 18:00] VITALS: BP 119/86; PULSE 101; RESP 18; TEMP 36.6; O2SAT 97
[2023-10-23] MEDS: traZODone HCL 50 MG TABLET PO (20:30)
[2023-10-23] MEDS: hydrOXYzine HCL 25 MG TABLET PO (20:30)
--- NOTE | 2023-10-24 | EEG_ITS ---
This is a 16-channel EEG with an EKG lead. The patient is reported awake and agitated during the tracing. Background EEG rhythm is mostly low to medium amplitude theta range with frequent muscle and lead artifacts. Photic stimulation does not produce any significant abnormality. Hyperventilation is not performed. Cardiac lead does not reveal any significant abnormality. No sharp wave spikes or paroxysmal tendency noted. IMPRESSION: Mild generalized slowing with no evidence of seizure disorder. MD RUT Howard/EDNA / [id number]
[2023-10-24] MEDS: Levothyroxine Sodium 75 MCG TABLET PO (05:58)
[2023-10-24] MEDS: Omeprazole 20 MG CAPSULE.DR PO (05:58)
[2023-10-24 08:25] VITALS: BP 114/84; PULSE 93; RESP 18; TEMP 36.2; O2SAT 100
[2023-10-24] MEDS: Benztropine Mesylate 1 MG TABLET PO ×2 (09:19→20:17)
[2023-10-24] MEDS: Cariprazine HCl 1.5 MG CAPSULE PO (09:19)
[2023-10-24] MEDS: FLUoxetine HCl 20 MG CAPSULE PO (09:19)
[2023-10-24] MEDS: Cholecalciferol (Vitamin D3) 25 MCG TABLET PO (09:19)
--- NOTE | 2023-10-24 12:56 | P.CNNE_ITS ---
History of Present Illness Data of Consult Service Date: 10/24/23 Primary Care Provider: Kellee Dyer MD [facility] Reason for consult: Encephalopathy 47 years old woman admitted in hospital with severe depression and self-harm type of behavior. Couple of years ago she was admitted in hospital and reported episodes of her patel type of feeling going to her head lasting for seconds to minutes. At that time an EEG revealed left temporal sharp waves. CT scan and MRI of brain were okay. Review of Systems 2 Review of Systems: Severe depression PMFSH Past Medical History Medical History (Updated 10/22/23 @ 16:22 by Jeanette Celaya APRN) Depression Cyst of perianal area Hyperthyroidism Vitamin D deficiency BETH on CPAP Major depression Hypothyroidism OCD (obsessive compulsive disorder) Bipolar 1 disorder, mixed Family History Family History Mother No problems noted. Father No problems noted. Surgical History Surgical History Hx of colonoscopy Hx of breast surgery History of electroconvulsive therapy History of hysterectomy Social History Social History Household Members: Family Household Members Other:: long-term Housing: House Are you a primary day care home provider to a significant other at home: No Do you presently have visiting nurse or other home services: No Unable to assess alcohol history related to: Refusing to respond Alcohol intake: never Comment: PATIENT ASLEEP THROUGHOUT SHIFT Patient Tobacco Use Status: Never used Tobacco Tobacco use type: Cigarette Cigarette Packs Per Day: 1 Cigarettes Per Day: 20.0 Years Smoked: 15 Smoked in Last 30 Days: No Patient Interested in Nicotine Replacement: No Patient Given Instructions on How to Stop Smoking: No Second Hand Smoke Exposure: No Use of substances other than those prescribed or required for medical reasons: Refusing to respond Currently Displaying Signs/Symptoms of Drug Intoxication Withdrawal: No Any prior treatment program specific to substance use: No Have you been hit, kicked, punched, or otherwise hurt by someone within the past year? 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 Sexual orientation: Straight/Heterosexual Meds Allergies Allergy/AdvReac Type Severity Reaction Status Date / Time aripiprazole Allergy Mild Unknown Verified 10/07/23 07:50 bupropion AdvReac Unknown Verified 10/07/23 07:50 divalproex sodium AdvReac Unknown Verified 10/07/23 07:50 [From Depakote] risperidone AdvReac Unknown Verified 10/07/23 07:50 Active Medications: Current Medications Acetaminophen (Acetaminophen 325 Mg Tablet) 650 mg PO Q6H PRN PRN Reason: Headache/Pain Mild Scale (1-3) Al Hydroxide/Mg Hydroxide (Magnesium Hydrox/Alum Hydrox 30 Ml Oral.Susp) 30 ml PO Q6H PRN PRN Reason: Heartburn/Nausea Benztropine Mesylate (Benztropine Mesylate 1 Mg Tablet) 1 mg PO BID [facility] Last Admin: 10/24/23 09:19 Dose: 1 mg Cariprazine (Cariprazine Hcl 1.5 Mg Capsule) 1.5 mg PO DAILY [facility] Last Admin: 10/24/23 09:19 Dose: 1.5 mg Clonazepam (Clonazepam 1 Mg Tablet) 1 mg PO TID PRN PRN Reason: panic attack Last Admin: 10/23/23 11:44 Dose: 1 mg Fluoxetine HCl (Fluoxetine Hcl 20 Mg Capsule) 20 mg PO DAILY [facility] Last Admin: 10/24/23 09:19 Dose: 20 mg Haloperidol Decanoate (Haloperidol Decanoate 50 Mg/Ml Vial) 100 mg IM Q30D [facility] Hydroxyzine HCl (Hydroxyzine Hcl 25 Mg Tablet) 25 mg PO Q6H PRN PRN Reason: Anxiety Last Admin: 10/23/23 20:30 Dose: 25 mg Levothyroxine Sodium (Levothyroxine Sodium 75 Mcg Tablet) 75 mcg PO DAILY@0630 [facility] Last Admin: 10/24/23 05:58 Dose: 75 mcg Magnesium Hydroxide (Milk Of Magnesia 30 Ml Oral.Susp) 30 ml PO DAILY PRN PRN Reason: Constipation Omeprazole (Omeprazole 20 Mg Capsule.Dr) 20 mg PO DAILY@0630 [facility] Last Admin: 10/24/23 05:58 Dose: 20 mg Trazodone HCl (Trazodone Hcl 50 Mg Tablet) 50 mg PO BEDTIME MRX1 PRN PRN Reason: Insomnia Last Admin: 10/23/23 20:30 Dose: 50 mg Vitamin D (Cholecalciferol (Vitamin D3) 25 Mcg Tablet) 25 mcg PO DAILY [facility] Last Admin: 10/24/23 09:19 Dose: 25 mcg Home Medications Medication Instructions Recorded Confirmed Last Taken Type benztropine 1 mg tablet 1 mg PO BID 10/20/23 10/20/23 Unknown History cholecalciferol (vitamin D3) 25 25 mcg PO DAILY 10/20/23 10/20/23 Unknown History mcg (1,000 unit) capsule (Vitamin D3) clonazepam 1 mg tablet 1 mg PO TID PRN panic attack 10/20/23 10/20/23 Unknown History fluoxetine 20 mg capsule (Prozac) 20 mg PO DAILY 10/20/23 10/20/23 Unknown History haloperidol decanoate 100 mg/mL 100 mg IM QMONTH 10/20/23 10/20/23 10/13/23 History intramuscular solution (Haldol Decanoate) Physical Exam 2 Vital Signs: Vital Signs: Last Vital Signs Temp 97.2 F 10/24/23 08:25 Pulse 93 10/24/23 08:25 Resp 18 10/24/23 08:25 BP 114/84 10/24/23 08:25 Pulse Ox 100 10/24/23 08:25 O2 Del Method Room Air 10/24/23 08:25 BMI result Body Mass Index 31.5 Neuro: Other: Alert and awake with normal spontaneity of speech fluency comprehension and depressed affect. Face is symmetrical. Visual waters are full. There is no pronator drift. Deep tendon reflexes are 1+ with flexor plantars speech is normal. Results Labs 10/20/23 20:19 10/20/23 20:19 Labs: Her CT scan of brain and MRI of brain in the past have been normal. Microbiology Microbiology Results: Microbiology 10/20/23 20:42 Urine clean catch Urine Culture - Final Assessment and Plan (1) Abnormal EEG: Status: Acute 47 years old woman who was admitted in hospital with severe depression. Previously she has reported some symptoms suggestive of complex partial seizures and had mildly abnormal EEG. At this time her presentation was different but I would suggest obtaining an EEG again. In addition, if a mood stabilizer is needed, I would recommend using lamotrigine, topiramate, or valproic acid. Procedures Date of Service Date of Service: 10/24/23
[2023-10-24] MEDS: clonazePAM 1 MG TABLET PO (13:43)
--- NOTE | 2023-10-24 14:52 | HO.PSYCHPN ---
Subjective Subjective Date of Service: 10/24/23 Reason For Visit: Bipolar Disorder Interim History: Pt seen and discussed in treatment team. Patient remains disorganized and labile. She is seen in the hallway. She is labile and crying saying she doesn't know what to eat. Says she has no appetite. She remains anxious. She is intrusive on personal space and comes close to examiner. Appears confused. She needs reassurance. Says she feels she wants to be in bed all the time. Disorganized. Seen later standing in the [place] and jumping up a few times. Seen by neurology. EEG recommended. Patient pst history of ECT and treatment with Depakote in 2019 with improvement in symptoms. Patient listed as having a Depakote allergy? Per psychiatrist's note from the psychiatrist, pt had MRI of brain without contrast - done by [facility] in [facility] on September 17, 2023. The MRI shows lesions on frontal lobe and demyelinating disease could not be ruled out. TW called pts cousin Sayda and left message to ask if pt had an outpatient neurologist following her. asked her to call back or email SW if able. Review of Systems Review of Systems Severe depression Mental Status Exam Mental Status Exam Patient Appearance: Disheveled and Unkempt Patient Orientation: Person and Situation Level of Consciousness: Restless Patient Behavior: Talkative, Restless, Anxious, Fearful, Invasion - Personal Space and Crying Mood Description: Anxious, Labile, Sad and Apprehensive Affect Description: Fearful, Anxious, Labile, Sad and Apprehensive Patient Cognition Impaired: Yes Ability to Follow Directions: Fair Speech Pattern: Perseverating and Rapid Thought Content: positive for Perseveration, positive for Preoccupation and positive for Disorganized Judgement: Poor Diagnostics Vital Signs (24Hr): Vital Signs - 24 hr 10/23/23 18:00 10/24/23 08:25 Temperature 97.8 F 97.2 F Pulse Rate 101 H 93 Respiratory Rate 18 18 Blood Pressure 119/86 114/84 Pulse Oximetry 97 100 Oxygen Delivery Method Room Air Room Air BMI result Body Mass Index 31.5 Labs 10/20/23 20:19 10/20/23 20:19 Medications Medications Current Medications Acetaminophen (Acetaminophen 325 Mg Tablet) 650 mg PO Q6H PRN PRN Reason: Headache/Pain Mild Scale (1-3) Al Hydroxide/Mg Hydroxide (Magnesium Hydrox/Alum Hydrox 30 Ml Oral.Susp) 30 ml PO Q6H PRN PRN Reason: Heartburn/Nausea Benztropine Mesylate (Benztropine Mesylate 1 Mg Tablet) 1 mg PO BID [facility] Last Admin: 10/24/23 09:19 Dose: 1 mg Cariprazine (Cariprazine Hcl 1.5 Mg Capsule) 1.5 mg PO DAILY [facility] Last Admin: 10/24/23 09:19 Dose: 1.5 mg Clonazepam (Clonazepam 1 Mg Tablet) 1 mg PO TID PRN PRN Reason: panic attack Last Admin: 10/24/23 13:43 Dose: 1 mg Fluoxetine HCl (Fluoxetine Hcl 20 Mg Capsule) 20 mg PO DAILY [facility] Last Admin: 10/24/23 09:19 Dose: 20 mg Haloperidol Decanoate (Haloperidol Decanoate 50 Mg/Ml Vial) 100 mg IM Q30D [facility] Hydroxyzine HCl (Hydroxyzine Hcl 25 Mg Tablet) 25 mg PO Q6H PRN PRN Reason: Anxiety Last Admin: 10/23/23 20:30 Dose: 25 mg Levothyroxine Sodium (Levothyroxine Sodium 75 Mcg Tablet) 75 mcg PO DAILY@0630 [facility] Last Admin: 10/24/23 05:58 Dose: 75 mcg Magnesium Hydroxide (Milk Of Magnesia 30 Ml Oral.Susp) 30 ml PO DAILY PRN PRN Reason: Constipation Omeprazole (Omeprazole 20 Mg Capsule.Dr) 20 mg PO DAILY@0630 [facility] Last Admin: 10/24/23 05:58 Dose: 20 mg Trazodone HCl (Trazodone Hcl 50 Mg Tablet) 50 mg PO BEDTIME MRX1 PRN PRN Reason: Insomnia Last Admin: 10/23/23 20:30 Dose: 50 mg Vitamin D (Cholecalciferol (Vitamin D3) 25 Mcg Tablet) 25 mcg PO DAILY [facility] Last Admin: 10/24/23 09:19 Dose: 25 mcg Allergies Allergies Allergy/AdvReac Type Severity Reaction Status Date / Time aripiprazole Allergy Mild Unknown Verified 10/07/23 07:50 bupropion AdvReac Unknown Verified 10/07/23 07:50 divalproex sodium AdvReac Unknown Verified 10/07/23 07:50 [From Depakote] risperidone AdvReac Unknown Verified 10/07/23 07:50 Assessment & Plan Assessment & Plan (1) Abnormal EEG: Status: Acute Code(s): R94.01 - Abnormal electroencephalogram [EEG] Assessment and Plan: 47 years old woman who was admitted in hospital with severe depression. Previously she has reported some symptoms suggestive of complex partial seizures and had mildly abnormal EEG. At this time her presentation was different but I would suggest obtaining an EEG again. In addition, if a mood stabilizer is needed, I would recommend using lamotrigine, topiramate, or valproic acid. (2) History of electroconvulsive therapy: Status: Acute Code(s): Z98.890 - Other specified postprocedural states (3) Major depression: Qualifiers: Active/Remission status: remission status unspecified Major depression recurrence: recurrent Qualified Code(s): F33.9 - Major depressive disorder, recurrent, unspecified Status: Acute Code(s): F32.9 - Major depressive disorder, single episode, unspecified (4) OCD (obsessive compulsive disorder): Qualifiers: Obsessive-compulsive disorder type: mixed obsessional thoughts and acts Qualified Code(s): F42.2 - Mixed obsessional thoughts and acts Status: Acute Code(s): F42.9 - Obsessive-compulsive disorder, unspecified (5) Bipolar 1 disorder, mixed: Status: Acute Code(s): F31.60 - Bipolar disorder, current episode mixed, unspecified Plan (1) Bipolar 1 disorder, mixed: Status: Acute Code(s): F31.60 - Bipolar disorder, current episode mixed, unspecified (2) OCD (obsessive compulsive disorder): Status: Acute Qualifiers: Obsessive-compulsive disorder type: mixed obsessional thoughts and acts Qualified Code(s): F42.2 - Mixed obsessional thoughts and acts Code(s): F42.9 - Obsessive-compulsive disorder, unspecified Plan 47 yo woman with chronic Bipolar Disorder and OCD with severe anxiety and restlessness, intrusive behavior, ruminating and pacing in need of hospital treatment admitted on CV to M5. plan admit to M5 CV collect collateral information discussed adding vraylar 1.5 mg cap daily to pt regimen; discussed risk vs benefits and possible side effect; pt agrees to trial - will start today 10/24: Neurology saw patient recommended repeat EEG. ?ECT. Clarify Depakote allergy. Reason for continued inpatient stay Substantial Risk for: inability to function and rapid decompensation Time Spent With Patient Time: Total time managing care of this patient today ____ minutes.
[2023-10-24 16:42] VITALS: BP 122/79; PULSE 102; RESP 16; TEMP 36.6; O2SAT 100
[2023-10-24] MEDS: hydrOXYzine HCL 25 MG TABLET PO (17:59)
[2023-10-24] MEDS: traZODone HCL 50 MG TABLET PO (23:49)
[2023-10-25] MEDS: Omeprazole 20 MG CAPSULE.DR PO (06:29)
[2023-10-25] MEDS: Levothyroxine Sodium 75 MCG TABLET PO (06:29)
[2023-10-25 08:35] VITALS: BP 132/82; PULSE 93; RESP 18; TEMP 36.7; O2SAT 100
[2023-10-25] MEDS: Cariprazine HCl 1.5 MG CAPSULE PO (08:59)
[2023-10-25] MEDS: Cholecalciferol (Vitamin D3) 25 MCG TABLET PO (08:59)
[2023-10-25] MEDS: FLUoxetine HCl 20 MG CAPSULE PO (08:59)
[2023-10-25] MEDS: Benztropine Mesylate 1 MG TABLET PO ×2 (08:59→20:28)
[2023-10-25] MEDS: clonazePAM 1 MG TABLET PO (12:31)
--- NOTE | 2023-10-25 14:47 | HO.PSYCHPN ---
Subjective Subjective Date of Service: 10/25/23 Reason For Visit: Bipolar Disorder Interim History: Pt seen and discussed in treatment team. Patient remains disorganized and labile. She is seen in the hallway. She is labile and crying saying she can't shower. Says she wants a pill to help her shower. She then starts crying. Then she jumps up and down a few times. She is intrusive. Repeatedly approaching and encroaching on this examiner's space. Review of Systems Review of Systems Severe depression Mental Status Exam Mental Status Exam Patient Appearance: Disheveled and Unkempt Patient Orientation: Person and Situation Level of Consciousness: Restless Patient Behavior: Talkative, Restless, Anxious, Fearful, Invasion - Personal Space and Crying Mood Description: Anxious, Labile, Sad and Apprehensive Affect Description: Fearful, Anxious, Labile, Sad and Apprehensive Patient Cognition Impaired: Yes Ability to Follow Directions: Fair Speech Pattern: Perseverating and Rapid Diagnostics Vital Signs (24Hr): Vital Signs - 24 hr 10/24/23 16:42 10/25/23 08:35 Temperature 97.9 F 98.1 F Pulse Rate 102 H 93 Respiratory Rate 16 18 Blood Pressure 122/79 132/82 Pulse Oximetry 100 100 Oxygen Delivery Method Room Air Room Air BMI result Body Mass Index 31.5 Labs 10/20/23 20:19 10/20/23 20:19 Medications Medications Current Medications Acetaminophen (Acetaminophen 325 Mg Tablet) 650 mg PO Q6H PRN PRN Reason: Headache/Pain Mild Scale (1-3) Al Hydroxide/Mg Hydroxide (Magnesium Hydrox/Alum Hydrox 30 Ml Oral.Susp) 30 ml PO Q6H PRN PRN Reason: Heartburn/Nausea Benztropine Mesylate (Benztropine Mesylate 1 Mg Tablet) 1 mg PO BID [facility] Last Admin: 10/25/23 08:59 Dose: 1 mg Cariprazine (Cariprazine Hcl 1.5 Mg Capsule) 1.5 mg PO DAILY [facility] Last Admin: 10/25/23 08:59 Dose: 1.5 mg Clonazepam (Clonazepam 1 Mg Tablet) 1 mg PO TID PRN PRN Reason: panic attack Last Admin: 10/25/23 12:31 Dose: 1 mg Fluoxetine HCl (Fluoxetine Hcl 20 Mg Capsule) 20 mg PO DAILY [facility] Last Admin: 10/25/23 08:59 Dose: 20 mg Haloperidol Decanoate (Haloperidol Decanoate 50 Mg/Ml Vial) 100 mg IM Q30D [facility] Hydroxyzine HCl (Hydroxyzine Hcl 25 Mg Tablet) 25 mg PO Q6H PRN PRN Reason: Anxiety Last Admin: 10/24/23 17:59 Dose: 25 mg Levothyroxine Sodium (Levothyroxine Sodium 75 Mcg Tablet) 75 mcg PO DAILY@0630 [facility] Last Admin: 10/25/23 06:29 Dose: 75 mcg Magnesium Hydroxide (Milk Of Magnesia 30 Ml Oral.Susp) 30 ml PO DAILY PRN PRN Reason: Constipation Omeprazole (Omeprazole 20 Mg Capsule.Dr) 20 mg PO DAILY@0630 [facility] Last Admin: 10/25/23 06:29 Dose: 20 mg Trazodone HCl (Trazodone Hcl 50 Mg Tablet) 50 mg PO BEDTIME MRX1 PRN PRN Reason: Insomnia Last Admin: 10/24/23 23:49 Dose: 50 mg Vitamin D (Cholecalciferol (Vitamin D3) 25 Mcg Tablet) 25 mcg PO DAILY [facility] Last Admin: 10/25/23 08:59 Dose: 25 mcg Allergies Allergies Allergy/AdvReac Type Severity Reaction Status Date / Time aripiprazole Allergy Mild Unknown Verified 10/07/23 07:50 bupropion AdvReac Unknown Verified 10/07/23 07:50 divalproex sodium AdvReac Unknown Verified 10/07/23 07:50 [From Depakote] risperidone AdvReac Unknown Verified 10/07/23 07:50 Assessment & Plan Assessment & Plan (1) Abnormal EEG: Status: Acute Code(s): R94.01 - Abnormal electroencephalogram [EEG] Assessment and Plan: 47 years old woman who was admitted in hospital with severe depression. Previously she has reported some symptoms suggestive of complex partial seizures and had mildly abnormal EEG. At this time her presentation was different but I would suggest obtaining an EEG again. In addition, if a mood stabilizer is needed, I would recommend using lamotrigine, topiramate, or valproic acid. (2) History of electroconvulsive therapy: Status: Acute Code(s): Z98.890 - Other specified postprocedural states (3) Major depression: Qualifiers: Active/Remission status: remission status unspecified Major depression recurrence: recurrent Qualified Code(s): F33.9 - Major depressive disorder, recurrent, unspecified Status: Acute Code(s): F32.9 - Major depressive disorder, single episode, unspecified (4) OCD (obsessive compulsive disorder): Qualifiers: Obsessive-compulsive disorder type: mixed obsessional thoughts and acts Qualified Code(s): F42.2 - Mixed obsessional thoughts and acts Status: Acute Code(s): F42.9 - Obsessive-compulsive disorder, unspecified (5) Bipolar 1 disorder, mixed: Status: Acute Code(s): F31.60 - Bipolar disorder, current episode mixed, unspecified Plan (1) Bipolar 1 disorder, mixed: Status: Acute Code(s): F31.60 - Bipolar disorder, current episode mixed, unspecified (2) OCD (obsessive compulsive disorder): Status: Acute Qualifiers: Obsessive-compulsive disorder type: mixed obsessional thoughts and acts Qualified Code(s): F42.2 - Mixed obsessional thoughts and acts Code(s): F42.9 - Obsessive-compulsive disorder, unspecified Plan 47 yo woman with chronic Bipolar Disorder and OCD with severe anxiety and restlessness, intrusive behavior, ruminating and pacing in need of hospital treatment admitted on CV to M5. plan admit to M5 CV collect collateral information discussed adding vraylar 1.5 mg cap daily to pt regimen; discussed risk vs benefits and possible side effect; pt agrees to trial - will start today 10/24: Neurology saw patient recommended repeat EEG. ?ECT. Clarify Depakote allergy. 10/25: Continue current management and treatment plan. Repeat EEG pending. ?ECT. Clarify Depakote allergy. Patient may have done well on Depakote in the past. Reason for continued inpatient stay Substantial Risk for: inability to function and rapid decompensation Time Spent With Patient Time: Total time managing care of this patient today ____ minutes.
[2023-10-25] MEDS: hydrOXYzine HCL 25 MG TABLET PO (16:24)
[2023-10-25 17:19] VITALS: BP 123/83; PULSE 106; RESP 18; TEMP 36.4; O2SAT 99
[2023-10-26] MEDS: Levothyroxine Sodium 75 MCG TABLET PO (07:03)
[2023-10-26] MEDS: Benztropine Mesylate 1 MG TABLET PO ×2 (08:44→20:24)
[2023-10-26] MEDS: Cariprazine HCl 1.5 MG CAPSULE PO ×2 (08:44→17:21)
[2023-10-26] MEDS: Cholecalciferol (Vitamin D3) 25 MCG TABLET PO (08:44)
[2023-10-26] MEDS: FLUoxetine HCl 20 MG CAPSULE PO (08:44)
[2023-10-26 09:00] VITALS: BP 127/86; PULSE 90; RESP 16; TEMP 36.3; O2SAT 100
[2023-10-26] MEDS: clonazePAM 1 MG TABLET PO (13:43)
--- NOTE | 2023-10-26 16:38 | HO.PSYCHPN ---
Subjective Subjective Date of Service: 10/26/23 Reason For Visit: Bipolar Disorder Subjective Notes: Conditional Voluntary Interim History: Pt seen and discussed in treatment team. Patient remains disorganized and labile. She is seen in her bedroom. States she can't lay down or she'll get in trouble. She is labile and crying saying she can't shower. Says she wants a pill to help her shower. She then starts crying. She is intrusive. Repeatedly approaching and encroaching on this examiner's space. Medication Compliance: Yes Side effects from medications: No Attending Groups: Intermittent Review of Systems Acute medical concerns: No Medical Review of Systems: unchanged Review of Systems Review of Systems Severe depression Mental Status Exam Mental Status Exam Patient Appearance: Disheveled and Unkempt Patient Orientation: Person and Situation Level of Consciousness: Restless Patient Behavior: Talkative, Restless, Anxious, Fearful, Invasion - Personal Space and Crying Mood Description: Anxious, Labile, Sad and Apprehensive Affect Description: Fearful, Anxious, Labile, Sad and Apprehensive Patient Cognition Impaired: Yes Ability to Follow Directions: Fair Speech Pattern: Perseverating and Rapid Thought Process: Rumination Thought Content: positive for Preoccupation Abnormal Motor Activity Signs and Symptoms: Restlessness Judgement: Poor Diagnostics Vital Signs (24Hr): Vital Signs - 24 hr 10/25/23 17:19 10/26/23 09:00 Temperature 97.5 F 97.3 F Pulse Rate 106 H 90 Respiratory Rate 18 16 Blood Pressure 123/83 127/86 Pulse Oximetry 99 100 Oxygen Delivery Method Room Air Room Air BMI result Body Mass Index 31.5 Labs 10/20/23 20:19 10/20/23 20:19 Medications Medications Current Medications Acetaminophen (Acetaminophen 325 Mg Tablet) 650 mg PO Q6H PRN PRN Reason: Headache/Pain Mild Scale (1-3) Al Hydroxide/Mg Hydroxide (Magnesium Hydrox/Alum Hydrox 30 Ml Oral.Susp) 30 ml PO Q6H PRN PRN Reason: Heartburn/Nausea Benztropine Mesylate (Benztropine Mesylate 1 Mg Tablet) 1 mg PO BID [facility] Last Admin: 10/26/23 08:44 Dose: 1 mg Cariprazine (Cariprazine Hcl 1.5 Mg Capsule) 1.5 mg PO DAILY [facility] Last Admin: 10/26/23 08:44 Dose: 1.5 mg Clonazepam (Clonazepam 1 Mg Tablet) 1 mg PO TID PRN PRN Reason: panic attack Last Admin: 10/26/23 13:43 Dose: 1 mg Haloperidol Decanoate (Haloperidol Decanoate 50 Mg/Ml Vial) 100 mg IM Q30D [facility] Hydroxyzine HCl (Hydroxyzine Hcl 25 Mg Tablet) 25 mg PO Q6H PRN PRN Reason: Anxiety Last Admin: 10/25/23 16:24 Dose: 25 mg Levothyroxine Sodium (Levothyroxine Sodium 75 Mcg Tablet) 75 mcg PO DAILY@629 [facility] Last Admin: 10/26/23 07:03 Dose: 75 mcg Magnesium Hydroxide (Milk Of Magnesia 30 Ml Oral.Susp) 30 ml PO DAILY PRN PRN Reason: Constipation Omeprazole (Omeprazole 20 Mg Capsule.Dr) 20 mg PO DAILY@629 [facility] Last Admin: 10/26/23 07:04 Dose: Not Given Trazodone HCl (Trazodone Hcl 50 Mg Tablet) 50 mg PO BEDTIME MRX1 PRN PRN Reason: Insomnia Last Admin: 10/24/23 23:49 Dose: 50 mg Vitamin D (Cholecalciferol (Vitamin D3) 25 Mcg Tablet) 25 mcg PO DAILY [facility] Last Admin: 10/26/23 08:44 Dose: 25 mcg Allergies Allergies Allergy/AdvReac Type Severity Reaction Status Date / Time aripiprazole Allergy Mild Unknown Verified 10/07/23 07:50 bupropion AdvReac Unknown Verified 10/07/23 07:50 divalproex sodium AdvReac Unknown Verified 10/07/23 07:50 [From Depakote] risperidone AdvReac Unknown Verified 10/07/23 07:50 Assessment & Plan Assessment & Plan (1) Abnormal EEG: Status: Acute Code(s): R94.01 - Abnormal electroencephalogram [EEG] Assessment and Plan: 47 years old woman who was admitted in hospital with severe depression. Previously she has reported some symptoms suggestive of complex partial seizures and had mildly abnormal EEG. At this time her presentation was different but I would suggest obtaining an EEG again. In addition, if a mood stabilizer is needed, I would recommend using lamotrigine, topiramate, or valproic acid. (2) History of electroconvulsive therapy: Status: Acute Code(s): Z98.890 - Other specified postprocedural states (3) Major depression: Qualifiers: Active/Remission status: remission status unspecified Major depression recurrence: recurrent Qualified Code(s): F33.9 - Major depressive disorder, recurrent, unspecified Status: Acute Code(s): F32.9 - Major depressive disorder, single episode, unspecified (4) OCD (obsessive compulsive disorder): Qualifiers: Obsessive-compulsive disorder type: mixed obsessional thoughts and acts Qualified Code(s): F42.2 - Mixed obsessional thoughts and acts Status: Acute Code(s): F42.9 - Obsessive-compulsive disorder, unspecified (5) Bipolar 1 disorder, mixed: Status: Acute Code(s): F31.60 - Bipolar disorder, current episode mixed, unspecified Plan (1) Bipolar 1 disorder, mixed: Status: Acute Code(s): F31.60 - Bipolar disorder, current episode mixed, unspecified (2) OCD (obsessive compulsive disorder): Status: Acute Qualifiers: Obsessive-compulsive disorder type: mixed obsessional thoughts and acts Qualified Code(s): F42.2 - Mixed obsessional thoughts and acts Code(s): F42.9 - Obsessive-compulsive disorder, unspecified Plan 47 yo woman with chronic Bipolar Disorder and OCD with severe anxiety and restlessness, intrusive behavior, ruminating and pacing in need of hospital treatment admitted on CV to M5. plan admit to M5 CV collect collateral information discussed adding vraylar 1.5 mg cap daily to pt regimen; discussed risk vs benefits and possible side effect; pt agrees to trial - will start today 10/24: Neurology saw patient recommended repeat EEG. ?ECT. Clarify Depakote allergy. 10/25: Continue current management and treatment plan. Repeat EEG pending. telephone call to adrien Alfredo and email to arrange a time to talk with her about medication reactions as pt does not recall; increase vraylar to 3mg daily Patient educated on: diagnosis, medication risk/benefits and therapeutic strategies Informed Consent: understands and further education needed Reason for continued inpatient stay Substantial Risk for: harm to self, inability to function and rapid decompensation Time Spent With Patient Time: Total time managing care of this patient today ____ minutes.
[2023-10-26 18:00] VITALS: BP 126/80; PULSE 98; RESP 17; TEMP 36.4; O2SAT 98
[2023-10-26] MEDS: hydrOXYzine HCL 25 MG TABLET PO (20:24)
[2023-10-26] MEDS: traZODone HCL 50 MG TABLET PO (20:24)
[2023-10-27] MEDS: Levothyroxine Sodium 75 MCG TABLET PO (06:02)
[2023-10-27] MEDS: Omeprazole 20 MG CAPSULE.DR PO (06:02)
[2023-10-27 08:15] VITALS: BP 122/81; PULSE 96; RESP 18; TEMP 35.9; O2SAT 97
[2023-10-27] MEDS: Cholecalciferol (Vitamin D3) 25 MCG TABLET PO (08:58)
[2023-10-27] MEDS: Benztropine Mesylate 1 MG TABLET PO ×2 (08:58→21:08)
[2023-10-27] MEDS: Cariprazine HCl 3 MG CAPSULE PO (08:58)
--- NOTE | 2023-10-27 11:04 | HO.PSYCHPN ---
Subjective Subjective Date of Service: 10/27/23 Reason For Visit: Bipolar Disorder Subjective Notes: Wilcox Warning and Conditional Voluntary Interim History: pt presents slightly less anxious and distressed; she reports she still feels depressed and sad. She is less tearful and no begging, getting on her knees with hands clapsed as she did on first day; she is quietly sitting in a chair in hallway when approached today; she tells me she attended 2 groups today and felt a little better in the movement group but now sad and depressed again; able to tell me she gets very frustrated at home because she needs so much help. Her EEG showed general mild slowing but no seizure activity. pt tolerating the vraylar which was increased to 3mg yesterday. the prozac was stopped due to dx of Bipolar Disorder. She reports dry mouth from the medication but no other side effects. collateral contact with cousin Sayda (release on file) says: ?Dariela has some allergic reaction to some medications, like Depakote, Seroquel, Abilify, Risperidone, Latuda, Nudesta. Also, she was doing fairly before she started with the Paroxetine reason why was discontinued and Dr. Connie Aj decided to do a reset in her medication. I watched her very closely when she started Prozac ( She did well for 2 days, feeling happy and excited until she began feeling anxious and restless. Medication Compliance: Yes Side effects from medications: No Attending Groups: Intermittent Review of Systems Acute medical concerns: No no Medical Review of Systems: unchanged Review of Systems Review of Systems Severe depression Yes all other systems are reviewed and are negative Mental Status Exam Mental Status Exam Patient Appearance: Disheveled and Unkempt Patient Orientation: Person and Situation Level of Consciousness: Restless Patient Behavior: Talkative, Restless, Anxious, Fearful, Invasion - Personal Space and Crying Mood Description: Anxious, Labile, Sad and Apprehensive Affect Description: Fearful, Anxious, Labile, Sad and Apprehensive Patient Cognition Impaired: Yes Ability to Follow Directions: Fair Speech Pattern: Perseverating and Rapid Hallucinations: None Thought Process: Distracted and Rumination Thought Content: positive for Perseveration and positive for Preoccupation Judgement: Fair Judgement and Insight: insight and judgement fair Diagnostics Vital Signs (24Hr): Vital Signs - 24 hr 10/26/23 18:00 10/27/23 08:15 Temperature 97.6 F 96.6 F L Pulse Rate 98 96 Respiratory Rate 17 18 Blood Pressure 126/80 122/81 Pulse Oximetry 98 97 Oxygen Delivery Method Room Air Room Air BMI result Body Mass Index 31.5 Labs 10/20/23 20:19 10/20/23 20:19 Medications Medications Current Medications Acetaminophen (Acetaminophen 325 Mg Tablet) 650 mg PO Q6H PRN PRN Reason: Headache/Pain Mild Scale (1-3) Al Hydroxide/Mg Hydroxide (Magnesium Hydrox/Alum Hydrox 30 Ml Oral.Susp) 30 ml PO Q6H PRN PRN Reason: Heartburn/Nausea Benztropine Mesylate (Benztropine Mesylate 1 Mg Tablet) 1 mg PO BID [facility] Last Admin: 10/27/23 08:58 Dose: 1 mg Cariprazine (Cariprazine Hcl 3 Mg Capsule) 3 mg PO DAILY [facility] Last Admin: 10/27/23 08:58 Dose: 3 mg Clonazepam (Clonazepam 1 Mg Tablet) 1 mg PO TID PRN PRN Reason: panic attack Last Admin: 10/26/23 13:43 Dose: 1 mg Haloperidol Decanoate (Haloperidol Decanoate 50 Mg/Ml Vial) 100 mg IM Q30D [facility] Hydroxyzine HCl (Hydroxyzine Hcl 25 Mg Tablet) 25 mg PO Q6H PRN PRN Reason: Anxiety Last Admin: 10/26/23 20:24 Dose: 25 mg Levothyroxine Sodium (Levothyroxine Sodium 75 Mcg Tablet) 75 mcg PO DAILY@0630 [facility] Last Admin: 10/27/23 06:02 Dose: 75 mcg Magnesium Hydroxide (Milk Of Magnesia 30 Ml Oral.Susp) 30 ml PO DAILY PRN PRN Reason: Constipation Omeprazole (Omeprazole 20 Mg Capsule.Dr) 20 mg PO DAILY@0630 [facility] Last Admin: 10/27/23 06:02 Dose: 20 mg Trazodone HCl (Trazodone Hcl 50 Mg Tablet) 50 mg PO BEDTIME MRX1 PRN PRN Reason: Insomnia Last Admin: 10/26/23 20:24 Dose: 50 mg Vitamin D (Cholecalciferol (Vitamin D3) 25 Mcg Tablet) 25 mcg PO DAILY [facility] Last Admin: 10/27/23 08:58 Dose: 25 mcg Allergies Allergies Allergy/AdvReac Type Severity Reaction Status Date / Time aripiprazole Allergy Mild Unknown Verified 10/07/23 07:50 bupropion AdvReac Unknown Verified 10/07/23 07:50 divalproex sodium AdvReac Unknown Verified 10/07/23 07:50 [From Depakote] risperidone AdvReac Unknown Verified 10/07/23 07:50 Assessment & Plan Assessment & Plan (1) Abnormal EEG: Status: Acute Code(s): R94.01 - Abnormal electroencephalogram [EEG] Assessment and Plan: 47 years old woman who was admitted in hospital with severe depression. Previously she has reported some symptoms suggestive of complex partial seizures and had mildly abnormal EEG. At this time her presentation was different but I would suggest obtaining an EEG again. In addition, if a mood stabilizer is needed, I would recommend using lamotrigine, topiramate, or valproic acid. (2) History of electroconvulsive therapy: Status: Acute Code(s): Z98.890 - Other specified postprocedural states (3) Major depression: Qualifiers: Active/Remission status: remission status unspecified Major depression recurrence: recurrent Qualified Code(s): F33.9 - Major depressive disorder, recurrent, unspecified Status: Acute Code(s): F32.9 - Major depressive disorder, single episode, unspecified (4) OCD (obsessive compulsive disorder): Qualifiers: Obsessive-compulsive disorder type: mixed obsessional thoughts and acts Qualified Code(s): F42.2 - Mixed obsessional thoughts and acts Status: Acute Code(s): F42.9 - Obsessive-compulsive disorder, unspecified (5) Bipolar 1 disorder, mixed: Status: Acute Code(s): F31.60 - Bipolar disorder, current episode mixed, unspecified Plan (1) Bipolar 1 disorder, mixed: Status: Acute Code(s): F31.60 - Bipolar disorder, current episode mixed, unspecified (2) OCD (obsessive compulsive disorder): Status: Acute Qualifiers: Obsessive-compulsive disorder type: mixed obsessional thoughts and acts Qualified Code(s): F42.2 - Mixed obsessional thoughts and acts Code(s): F42.9 - Obsessive-compulsive disorder, unspecified Plan 47 yo woman with chronic Bipolar Disorder and OCD with severe anxiety and restlessness, intrusive behavior, ruminating and pacing in need of hospital treatment admitted on CV to [facility]. plan admit to [facility] CV collect collateral information discussed adding beni Xiong.5 mg cap daily to pt regimen; discussed risk vs benefits and possible side effect; pt agrees to trial - will start today 10/24: Neurology saw patient recommended repeat EEG. ?ECT. Clarify Depakote allergy. 10/26: Continue current management and treatment plan. Repeat EEG pending. telephone call to cousin Sayda and email to arrange a time to talk with her about medication reactions as pt does not recall; increase vraylar to 3mg daily 10/27 continue plan; waiting to hear back from Sayda re medication reaction but have the list of meds with which she had poor reactions. consider increase vraylar if needed and consider scheduled clonazepam; Sayda (cousin) reports pt has a referral to [facility] neurology already for after care but no appt yet. Patient educated on: diagnosis, medication risk/benefits and therapeutic strategies Informed Consent: understands and further education needed Reason for continued inpatient stay Substantial Risk for: harm to self, inability to function and rapid decompensation Time Spent With Patient Time: Total time managing care of this patient today __45__ minutes.
[2023-10-27] MEDS: hydrOXYzine HCL 25 MG TABLET PO ×2 (13:03→21:08)
[2023-10-27] MEDS: Magnesium Hydrox/Alum Hydrox 30 ML ORAL.SUSP PO (13:38)
[2023-10-27 16:11] VITALS: BP 132/85; PULSE 100; RESP 18; TEMP 36.6; O2SAT 100
[2023-10-27] MEDS: clonazePAM 1 MG TABLET PO (21:08)
[2023-10-27] MEDS: traZODone HCL 50 MG TABLET PO (21:08)
[2023-10-27] MEDS: Acetaminophen 325 MG TABLET 650 MG PO (21:53)
[2023-10-28] MEDS: Omeprazole 20 MG CAPSULE.DR PO (05:38)
[2023-10-28] MEDS: Levothyroxine Sodium 75 MCG TABLET PO (05:38)
[2023-10-28 08:10] VITALS: BP 119/75; PULSE 76; RESP 18; TEMP 36.2; O2SAT 100
[2023-10-28] MEDS: Cholecalciferol (Vitamin D3) 25 MCG TABLET PO (09:09)
[2023-10-28] MEDS: Cariprazine HCl 3 MG CAPSULE PO (09:09)
[2023-10-28] MEDS: Benztropine Mesylate 1 MG TABLET PO ×2 (09:09→19:55)
--- NOTE | 2023-10-28 10:13 | P.PNPSI_ITS ---
Subjective Subjective Date of Service: 10/28/23 Reason For Visit: Bipolar Disorder Interim History: met with patient; discussed with team; reviewed chart Patient tearful, hard to express herself through emotions; saying that she is scared she will never get better, trying to push herself to go to groups... She is following staff's recommendations at behavioral activation however it is also causing her some stress as she can not tell how long she supposed to be out of her room, engaged with others feeling very unable to decide how much time she should be allowed to stay in her room by herself.... Tissue Rewinder tried to talk this through with her but patient had a hard time discussing therapeutic approaches to to her emotionality. That said, patient feels somewhat improved since she 1st came in and said that she is feeling so-so in addition to being scared and anxious. She does say however that she is suffering which is apparent. Patient said that the last time she was hospitalized was in 2019 and when discharged, was overall feeling that she was doing pretty well. Discussed medication regimen and patient is not sure why medications were changed over these years but she agrees to get back on past regimen; also discussed ECT but patient can not remember if she thought this was helpful or not. Patient gave permission to talk to her provider, her cousin who is also her healthcare proxy. 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 -the prozac was stopped due to dx of Bipolar Disorder. She reports dry mouth from the medication but no other side effects. -collateral contact with cousin Sayda (release on file) says: ?Dariela has some allergic reaction to some medications, like Depakote, Seroquel, Abilify, Risperidone, Latuda, Nudesta. - Also, she was doing fairly before she started with the Paroxetine reason why was discontinued and Dr. Connie Aj decided to do a reset in her medication. I watched her very closely when she started Prozac ( She did well for 2 days, feeling happy and excited until she began feeling anxious and restless. Neurology consult 10/24 Dr. Ma, 47 years old woman admitted in hospital with severe depression and self-harm type of behavior. Couple of years ago she was admitted in hospital and reported episodes of her patel type of feeling going to her head lasting for seconds to minutes. At that time an EEG revealed left temporal sharp waves. CT scan and MRI of brain were okay. Jul 2020 admission ECT Clozapine 200 mg 1800 Diazepam 2 mg b.i.d. p.r.n. Depakote ER 750 mg at 18:00 Haldol 2 mg b.i.d. Haldol 1 mg q.4 p.r.n. Seroquel 50 mg Q 4 p.r.n. Lamictal 25 mg Levothyroxine 100 mcg Oxybutynin 10 mg Propranolol 20 mg t.i.d. Vitamin-D 2 12 50 mcg Q 7 days Mental Status Exam Mental Status Exam Narrative: Pt is alert and oriented; behavior is cooperative, very tearful, breaking down in emotional distress; dressed in hospital l attire with adequate hygiene; mood is described as sad, scared, frustrated and affect congruent; eye contact appropriate; Speech is normal rate, volume and prosody and not pressured; both psychomotor agitation/retardation intermittently present; thought process is organized and goal directed; Thought content is on fearfulness, anxiety, hopelessness; tx; otherwise pertinent to relevant topics and without any delusional content, paranoid ideations or grandiosity; denies any SI/HI. There is no evidence of perceptual disturbance. Patients insight and judgment impaired Diagnostics Vital Signs (24Hr): Vital Signs - 24 hr 10/27/23 16:11 10/28/23 08:10 Temperature 97.8 F 97.2 F Pulse Rate 100 76 Respiratory Rate 18 18 Blood Pressure 132/85 119/75 Pulse Oximetry 100 100 Oxygen Delivery Method Room Air Room Air BMI result Body Mass Index 31.5 Labs 10/20/23 20:19 10/20/23 20:19 Medications Medications Current Medications Acetaminophen (Acetaminophen 325 Mg Tablet) 650 mg PO Q6H PRN PRN Reason: Headache/Pain Mild Scale (1-3) Last Admin: 10/27/23 21:53 Dose: 650 mg Al Hydroxide/Mg Hydroxide (Magnesium Hydrox/Alum Hydrox 30 Ml Oral.Susp) 30 ml PO Q6H PRN PRN Reason: Heartburn/Nausea Last Admin: 10/27/23 13:38 Dose: 30 ml Benztropine Mesylate (Benztropine Mesylate 1 Mg Tablet) 1 mg PO BID [facility] Last Admin: 10/28/23 09:09 Dose: 1 mg Cariprazine (Cariprazine Hcl 3 Mg Capsule) 3 mg PO DAILY [facility] Last Admin: 10/28/23 09:09 Dose: 3 mg Clonazepam (Clonazepam 1 Mg Tablet) 1 mg PO TID PRN PRN Reason: panic attack Last Admin: 10/27/23 21:08 Dose: 1 mg Haloperidol Decanoate (Haloperidol Decanoate 50 Mg/Ml Vial) 100 mg IM Q30D [facility] Hydroxyzine HCl (Hydroxyzine Hcl 25 Mg Tablet) 25 mg PO Q6H PRN PRN Reason: Anxiety Last Admin: 10/27/23 21:08 Dose: 25 mg Levothyroxine Sodium (Levothyroxine Sodium 75 Mcg Tablet) 75 mcg PO DAILY@0630 [facility] Last Admin: 10/28/23 05:38 Dose: 75 mcg Magnesium Hydroxide (Milk Of Magnesia 30 Ml Oral.Susp) 30 ml PO DAILY PRN PRN Reason: Constipation Omeprazole (Omeprazole 20 Mg Capsule.Dr) 20 mg PO DAILY@0630 [facility] Last Admin: 10/28/23 05:38 Dose: 20 mg Trazodone HCl (Trazodone Hcl 50 Mg Tablet) 50 mg PO BEDTIME MRX1 PRN PRN Reason: Insomnia Last Admin: 10/27/23 21:08 Dose: 50 mg Vitamin D (Cholecalciferol (Vitamin D3) 25 Mcg Tablet) 25 mcg PO DAILY [facility] Last Admin: 10/28/23 09:09 Dose: 25 mcg Allergies Allergies Allergy/AdvReac Type Severity Reaction Status Date / Time aripiprazole Allergy Mild Unknown Verified 10/07/23 07:50 bupropion AdvReac Unknown Verified 10/07/23 07:50 divalproex sodium AdvReac Unknown Verified 10/07/23 07:50 [From Depakote] risperidone AdvReac Unknown Verified 10/07/23 07:50 Assessment & Plan Assessment & Plan (1) Bipolar 1 disorder, mixed: Status: Acute Code(s): F31.60 - Bipolar disorder, current episode mixed, unspecified (2) OCD (obsessive compulsive disorder): Qualifiers: Obsessive-compulsive disorder type: mixed obsessional thoughts and acts Qualified Code(s): F42.2 - Mixed obsessional thoughts and acts Status: Acute Code(s): F42.9 - Obsessive-compulsive disorder, unspecified (3) Abnormal EEG: Status: Acute Code(s): R94.01 - Abnormal electroencephalogram [EEG] Assessment and Plan: 47 years old woman who was admitted in hospital with severe depression. Previously she has reported some symptoms suggestive of complex partial seizures and had mildly abnormal EEG. At this time her presentation was different but I would suggest obtaining an EEG again. In addition, if a mood stabilizer is needed, I would recommend using lamotrigine, topiramate, or valproic acid. (4) History of electroconvulsive therapy: Status: Acute Code(s): Z98.890 - Other specified postprocedural states Plan HPI: 47 yo woman with chronic Bipolar Disorder and OCD with severe anxiety and restlessness, intrusive behavior, ruminating and pacing in need of hospital treatment admitted on CV to [facility]. Hospital course: 10/24: Neurology saw patient recommended repeat EEG. ?ECT. Clarify Depakote allergy. 10/26: Continue current management and treatment plan. Repeat EEG pending. telephone call to adrien Alfredo and email to arrange a time to talk with her about medication reactions as pt does not recall; increase vraylar to 3mg daily 10/27 continue plan; waiting to hear back from Sayda re medication reaction but have the list of meds with which she had poor reactions. consider increase vraylar if needed and consider scheduled clonazepam; Sayda (cousin) reports pt has a referral to [facility] neurology already for after care but no appt yet. 10/28 Patient tearful, hard to express herself through emotions; saying that she is scared she will never get better, trying to push herself to go to groups... She is following staff's recommendations at behavioral activation however it is also causing her some stress as she can not tell how long she supposed to be out of her room, engaged with others feeling very unable to decide how much time she should be allowed to stay in her room by herself.... Tissue Rewinder tried to talk this through with her but patient had a hard time discussing therapeutic approaches to to her emotionality. That said, patient feels somewhat improved since she 1st came in and said that she is feeling so-so in addition to being scared and anxious. She does say however that she is suffering which is apparent. Patient said that the last time she was hospitalized was in 2019 and when discharged, was overall feeling that she was doing pretty well. Discussed medication regimen and patient is not sure why medications were changed over these years but she agrees to get back on past regimen; also discussed ECT but patient can not remember if she thought this was helpful or not. Patient gave permission to talk to her provider, her cousin who is also her healthcare proxy. Per staff, covering provider, pt improved a little since admission: She is less tearful and no begging, getting on her knees with hands clapsed as she did on first day; - pt tolerating the vraylar which was increased to 3mg yesterday. -the prozac was stopped due to dx of Bipolar Disorder. She reports dry mouth from the medication but no other side effects. -collateral contact with cousin Sayda (release on file) says: ?Dariela has some allergic reaction to some medications, like Depakote, Seroquel, Abilify, Risperidone, Latuda, Nudesta. - Also, she was doing fairly before she started with the Paroxetine reason why was discontinued and Dr. Connie Aj decided to do a reset in her medication. I watched her very closely when she started Prozac ( She did well for 2 days, feeling happy and excited until she began feeling anxious and restless. Impression: History of difficult to treat depression, OCD; past history show some improvement on mood stabilizer and ECT. Lamictal may be a good choice since it can help treat OCD and does not trigger manic episodes; however if patient does get on a mood stabilizer, she may be able to tolerate high dose of SSRI which is first-line treatment for OCD. Will continue to gather collateral and explore medication management options plan CV Q 15 Patient started on Vraylar which was increased to 3 mg daily (discussed risk vs benefits and possible side effect; pt agrees to trial) -Prozac discontinued at a concern for bipolar disorder, dry mouth -will consider past medication regimen however this includes Depakote and there is some report of side effect; will need to discuss further Neurology consult 10/24 Dr. Ma, 47 years old woman admitted in hospital with severe depression and self-harm type of behavior. Couple of years ago she was admitted in hospital and reported episodes of her patel type of feeling going to her head lasting for seconds to minutes. At that time an EEG revealed left temporal sharp waves. CT scan and MRI of brain were okay. Jul 2020 admission ECT Clozapine 200 mg 1800 Diazepam 2 mg b.i.d. p.r.n. Depakote ER 750 mg at 18:00 Haldol 2 mg b.i.d. Haldol 1 mg q.4 p.r.n. Seroquel 50 mg Q 4 p.r.n. Lamictal 25 mg Levothyroxine 100 mcg Oxybutynin 10 mg Propranolol 20 mg t.i.d. Vitamin-D 2 12 50 mcg Q 7 days Patient educated on: diagnosis, medication risk/benefits, ECT and therapeutic strategies Informed Consent: understands and further education needed Reason for continued inpatient stay Substantial Risk for: inability to function Time Spent With Patient Time: Total time managing care of this patient today ____ minutes.
[2023-10-28] MEDS: Acetaminophen 325 MG TABLET 650 MG PO (15:46)
[2023-10-28] MEDS: Ibuprofen 600 MG TABLET PO (19:55)
[2023-10-28] MEDS: clonazePAM 1 MG TABLET PO (19:57)
[2023-10-29] MEDS: Levothyroxine Sodium 75 MCG TABLET PO (06:21)
[2023-10-29] MEDS: Omeprazole 20 MG CAPSULE.DR PO (06:22)
[2023-10-29 07:00] VITALS: BMI 32.5
[2023-10-29] MEDS: Cariprazine HCl 3 MG CAPSULE PO (08:27)
[2023-10-29] MEDS: Benztropine Mesylate 1 MG TABLET PO ×2 (08:27→20:50)
[2023-10-29] MEDS: Cholecalciferol (Vitamin D3) 25 MCG TABLET PO (08:27)
[2023-10-29 08:30] VITALS: BP 126/68; PULSE 80; RESP 16; TEMP 36.2; O2SAT 100
--- NOTE | 2023-10-29 09:31 | HO.PSYCHPN ---
Subjective Subjective Date of Service: 10/29/23 Reason For Visit: Bipolar Disorder Interim History: met with patient; discussed with team; discussed case with HCP cousin pt remains tortured by worries, depression, indecisiveness...though a little less intensely so then on admission. Pt says it's very hard for her to do anything and she just wants to go lie in bed; however, she agrees to force herself to groups. Apologetically Rejects some activities recommended saying she's too anxious to attend. cousin/HCP Sayda: says ups/downs but was able to overall function at home with sufficient good enough periods where she'd go out and do activities (with help), put on makeup, enjoy things...Sayda reports constant medication changes making it difficult to know what meds worked or at least were partially helpful...wonders that during down times, it would be better to just wait it out rather than make med changes. Thinks recent decomp result of adding Paxil which caused high irritability/manic/obsessive and then Prozac which caused the same; since then, outpt provider trying to do a reset on meds... -Says Haldol has historically worked the best -reported med trials -She voiced [facility] MRI concerns; commercial lines underwriter able to read impression which does refer to lesion Right Frontal lobe (not in meditech) Mental Status Exam Mental Status Exam Narrative: Pt is alert and oriented; behavior is cooperative, tearful but less so and resolves; dressed in hospital attire with adequate hygiene; mood is described as sad, scared, frustrated and affect congruent; eye contact appropriate; Speech is normal rate, volume and prosody and not pressured; both psychomotor agitation/retardation intermittently present; thought process is organized and goal directed; Thought content is on fearfulness, anxiety, hopelessness; tx; otherwise pertinent to relevant topics and without any delusional content, paranoid ideations or grandiosity; denies any SI/HI. There is no evidence of perceptual disturbance. Patients insight and judgment impaired Diagnostics Vital Signs (24Hr): Vital Signs - 24 hr 10/29/23 08:30 Temperature 97.2 F Pulse Rate 80 Respiratory Rate 16 Blood Pressure 126/68 Pulse Oximetry 100 Oxygen Delivery Method Room Air BMI result Body Mass Index 31.5 Labs 10/20/23 20:19 02/20/24 20:19 Medications Medications Current Medications Acetaminophen (Acetaminophen 325 Mg Tablet) 650 mg PO Q6H PRN PRN Reason: Headache/Pain Mild Scale (1-3) Last Admin: 10/28/23 15:46 Dose: 650 mg Al Hydroxide/Mg Hydroxide (Magnesium Hydrox/Alum Hydrox 30 Ml Oral.Susp) 30 ml PO Q6H PRN PRN Reason: Heartburn/Nausea Last Admin: 10/27/23 13:38 Dose: 30 ml Benztropine Mesylate (Benztropine Mesylate 1 Mg Tablet) 1 mg PO BID [facility] Last Admin: 10/29/23 08:27 Dose: 1 mg Cariprazine (Cariprazine Hcl 3 Mg Capsule) 3 mg PO DAILY [facility] Last Admin: 10/29/23 08:27 Dose: 3 mg Clonazepam (Clonazepam 1 Mg Tablet) 1 mg PO TID PRN PRN Reason: panic attack Last Admin: 10/28/23 19:57 Dose: 1 mg Haloperidol Decanoate (Haloperidol Decanoate 50 Mg/Ml Vial) 100 mg IM Q30D [facility] Hydroxyzine HCl (Hydroxyzine Hcl 25 Mg Tablet) 25 mg PO Q6H PRN PRN Reason: Anxiety Last Admin: 10/27/23 21:08 Dose: 25 mg Levothyroxine Sodium (Levothyroxine Sodium 75 Mcg Tablet) 75 mcg PO DAILY@0630 [facility] Last Admin: 10/29/23 06:21 Dose: 75 mcg Magnesium Hydroxide (Milk Of Magnesia 30 Ml Oral.Susp) 30 ml PO DAILY PRN PRN Reason: Constipation Omeprazole (Omeprazole 20 Mg Capsule.Dr) 20 mg PO DAILY@0630 [facility] Last Admin: 10/29/23 06:22 Dose: 20 mg Trazodone HCl (Trazodone Hcl 50 Mg Tablet) 50 mg PO BEDTIME MRX1 PRN PRN Reason: Insomnia Last Admin: 10/27/23 21:08 Dose: 50 mg Vitamin D (Cholecalciferol (Vitamin D3) 25 Mcg Tablet) 25 mcg PO DAILY [facility] Last Admin: 10/29/23 08:27 Dose: 25 mcg Allergies Allergies Allergy/AdvReac Type Severity Reaction Status Date / Time aripiprazole Allergy Mild Unknown Verified 10/07/23 07:50 bupropion AdvReac Unknown Verified 10/07/23 07:50 divalproex sodium AdvReac Unknown Verified 10/07/23 07:50 [From Depakote] risperidone AdvReac Unknown Verified 10/07/23 07:50 Assessment & Plan Assessment & Plan (1) Bipolar 1 disorder, mixed: Status: Acute Code(s): F31.60 - Bipolar disorder, current episode mixed, unspecified (2) OCD (obsessive compulsive disorder): Qualifiers: Obsessive-compulsive disorder type: mixed obsessional thoughts and acts Qualified Code(s): F42.2 - Mixed obsessional thoughts and acts Status: Acute Code(s): F42.9 - Obsessive-compulsive disorder, unspecified (3) Abnormal EEG: Status: Acute Code(s): R94.01 - Abnormal electroencephalogram [EEG] Assessment and Plan: 47 years old woman who was admitted in hospital with severe depression. Previously she has reported some symptoms suggestive of complex partial seizures and had mildly abnormal EEG. At this time her presentation was different but I would suggest obtaining an EEG again. In addition, if a mood stabilizer is needed, I would recommend using lamotrigine, topiramate, or valproic acid. (4) History of electroconvulsive therapy: Status: Acute Code(s): Z98.890 - Other specified postprocedural states Plan HPI: 47 yo woman with chronic Bipolar Disorder and OCD with severe anxiety and restlessness, intrusive behavior, ruminating and pacing in need of hospital treatment admitted on CV to [facility]. Hospital course: 10/24: Neurology saw patient recommended repeat EEG. ?ECT. Clarify Depakote allergy. 10/26: Continue current management and treatment plan. Repeat EEG pending. telephone call to adrien Alfredo and email to arrange a time to talk with her about medication reactions as pt does not recall; increase vraylar to 3mg daily 10/27 continue plan; waiting to hear back from Sayda re medication reaction but have the list of meds with which she had poor reactions. consider increase vraylar if needed and consider scheduled clonazepam; Sayda (cousin) reports pt has a referral to [facility] neurology already for after care but no appt yet. 10/28 Patient tearful, hard to express herself through emotions; saying that she is scared she will never get better, trying to push herself to go to groups... She is following staff's recommendations at behavioral activation however it is also causing her some stress as she can not tell how long she supposed to be out of her room, engaged with others feeling very unable to decide how much time she should be allowed to stay in her room by herself.... Surveyor Rod Helper tried to talk this through with her but patient had a hard time discussing therapeutic approaches to to her emotionality. That said, patient feels somewhat improved since she 1st came in and said that she is feeling so-so in addition to being scared and anxious. She does say however that she is suffering which is apparent. Patient said that the last time she was hospitalized was in 2019 and when discharged, was overall feeling that she was doing pretty well. Discussed medication regimen and patient is not sure why medications were changed over these years but she agrees to get back on past regimen; also discussed ECT but patient can not remember if she thought this was helpful or not. Patient gave permission to talk to her provider, her cousin who is also her healthcare proxy. Per staff, covering provider, pt improved a little since admission: She is less tearful and no begging, getting on her knees with hands clapsed as she did on first day; - pt tolerating the vraylar which was increased to 3mg yesterday. -the prozac was stopped due to dx of Bipolar Disorder. She reports dry mouth from the medication but no other side effects. -collateral contact with cousin Sayda (release on file) says: ?Dariela has some allergic reaction to some medications, like Depakote, Seroquel, Abilify, Risperidone, Latuda, Nudesta. - Also, she was doing fairly before she started with the Paroxetine reason why was discontinued and Dr. Connie Aj decided to do a reset in her medication. I watched her very closely when she started Prozac ( She did well for 2 days, feeling happy and excited until she began feeling anxious and restless. pt remains tortured by worries, depression, indecisiveness...though a little less intensely so then on admission. Pt says it's very hard for her to do anything and she just wants to go lie in bed; however, she agrees to force herself to groups. Apologetically Rejects some activities recommended saying she's too anxious to attend. -cousin/HCP Sayda: gave hx -Says Haldol has historically worked the best; agrees with re-trial of Lamicta; continue w/ Vraylar -She voiced [facility] MRI concerns; commercial lines underwriter able to read impression which does refer to lesion Right Frontal lobe (not in [facility]) Impression/decision making: History of difficult to treat depression, OCD; past history show some improvement on mood stabilizer and ECT. Lamictal may be a good choice since it can help treat OCD and does not trigger manic episodes; has not seemed to tolerate SSRI. ECT not helpful (maybe because hard to get good seizure since on benzos/depakote?) -will continue with Haldol -will continue w/ Vraylar started on admission -will discuss starting lamictal plan CV Q 15 Continue Vraylar 3mg (discussed risk vs benefits and possible side effect; pt agrees to trial) -DC'd Prozac concern for bipolar disorder, dry mouth -continue haldol dec -look further into MRI impression Neurology consult 10/24 Dr. Ma, 47 years old woman admitted in hospital with severe depression and self-harm type of behavior. Couple of years ago she was admitted in hospital and reported episodes of her patel type of feeling going to her head lasting for seconds to minutes. At that time an EEG revealed left temporal sharp waves. CT scan and MRI of brain were okay. however, [facility] MRI concerns; commercial lines underwriter able to read impression from [facility] 09/17/23 which does refer to lesion Right Frontal lobe (not in [facility]); will discuss with neuro Med trials: Haldol: worked the best ! Lamictal: did not seem to help, but...may have been too low a dose Fluvoxamine? not sure if helpful ECT: no help; memory loss Clozapine: did not tolerate frequent blood draws abilify: severe restlessness Risperdal: severe restlessness [place]: bed-wetting; not sure if helped Depakote: muscle cramps, restless... Latuda: TD Seroquel 50 mg Q 4 p.r.n. (makes aggressive) Nuedexta (Dextromethorphan /Quinidine) for uncontrollable crying/laughing Oxybutynin 10 mg Propranolol 20 mg t.i.d. hx: -Psych [place] -Residential for 1 year 2019- did ok, ups/downs; lots of med changes -Home with Cousin 2020-current: past 2.5 years overall good enough, lots of up/downs and med changes BETH and some trouble breathing? Seratonin Syndrom on some meds for depression? (not sure details) -Thinks recent decomp result of adding Paxil which caused high irritability/manic/obsessive and then Prozac which caused the same; since then, outpt provider trying to do a reset on meds... Says when at home w/ Cousin, ups/downs but was able to overall function at home with sufficient good enough periods where she'd go out and do activities (with help), put on makeup, enjoy things...Sayda reports constant medication changes making it difficult to know what meds worked or at least were partially helpful...wonders that during down times, it would be better to just wait it out rather than make med changes. Thinks recent decomp result of adding Paxil which caused high irritability/manic/obsessive and then Prozac which caused the same; since then, outpt provider trying to do a reset on meds.. Patient educated on: diagnosis, medication risk/benefits and therapeutic strategies Informed Consent: understands and further education needed Reason for continued inpatient stay Substantial Risk for: inability to function Time Spent With Patient Time: Total time managing care of this patient today ____ minutes.
[2023-10-29] MEDS: clonazePAM 1 MG TABLET PO ×2 (11:05→19:10)
[2023-10-29 18:00] VITALS: BP 136/87; PULSE 90; RESP 18; TEMP 36.3; O2SAT 100
[2023-10-29] MEDS: hydrOXYzine HCL 25 MG TABLET PO (19:10)
[2023-10-29] MEDS: Acetaminophen 325 MG TABLET 650 MG PO (19:10)
[2023-10-29] MEDS: traZODone HCL 50 MG TABLET PO (20:50)
[2023-10-30 06:00] VITALS: BP 118/66; PULSE 81; RESP 18; TEMP 36.4; O2SAT 100
[2023-10-30] MEDS: Omeprazole 20 MG CAPSULE.DR PO (06:04)
[2023-10-30] MEDS: Levothyroxine Sodium 75 MCG TABLET PO (06:04)
[2023-10-30] MEDS: Cholecalciferol (Vitamin D3) 25 MCG TABLET PO (08:29)
[2023-10-30] MEDS: Benztropine Mesylate 1 MG TABLET PO ×2 (08:29→21:14)
[2023-10-30] MEDS: Cariprazine HCl 3 MG CAPSULE PO (08:29)
--- NOTE | 2023-10-30 08:33 | P.PNPSI_ITS ---
Subjective Subjective Date of Service: 10/30/23 Reason For Visit: Bipolar Disorder Interim History: Met with patient; discussed with team pt agrees she's doing a little better...saying she's a little less anxious. And of note, affect is more calm, not tearful, less anxious...she continues to feel depressed and struggles with both ocd-obsessional worries and indecisiveness (can't tolerate picking out menu, cloths...what to do w/ time). Discussed meds and conversation w/ Cousin/HCP. Pt agrees it's possible she's feeling a little better on Vraylar; agrees to restart Lamictal which can help w/ OCD. Mental Status Exam Mental Status Exam Narrative: Pt is alert and oriented; behavior is cooperative, little more calm, not really tearful; dressed in hospital attire with adequate hygiene; mood is described as little better... and affect a little brighter (though still quite anxious); eye contact appropriate; Speech is normal rate, volume and prosody and not pressured; both psychomotor agitation/retardation intermittently present; thought process is organized and goal directed; Thought content is on fearfulness, anxiety, hopelessness; tx; otherwise pertinent to relevant topics and without any delusional content, paranoid ideations or grandiosity; denies any SI/HI. There is no evidence of perceptual disturbance. Patients insight and judgment impaired Diagnostics Vital Signs (24Hr): Vital Signs - 24 hr 10/29/23 18:00 Temperature 97.3 F Pulse Rate 90 Respiratory Rate 18 Blood Pressure 136/87 Pulse Oximetry 100 Oxygen Delivery Method Room Air BMI result Body Mass Index 32.5 Labs 10/20/23 20:19 10/20/23 20:19 Medications Medications Current Medications Acetaminophen (Acetaminophen 325 Mg Tablet) 650 mg PO Q6H PRN PRN Reason: Headache/Pain Mild Scale (1-3) Last Admin: 10/29/23 19:10 Dose: 650 mg Al Hydroxide/Mg Hydroxide (Magnesium Hydrox/Alum Hydrox 30 Ml Oral.Susp) 30 ml PO Q6H PRN PRN Reason: Heartburn/Nausea Last Admin: 10/27/23 13:38 Dose: 30 ml Benztropine Mesylate (Benztropine Mesylate 1 Mg Tablet) 1 mg PO BID [place] Last Admin: 10/30/23 08:29 Dose: 1 mg Cariprazine (Cariprazine Hcl 3 Mg Capsule) 3 mg PO DAILY [facility] Last Admin: 10/30/23 08:29 Dose: 3 mg Clonazepam (Clonazepam 1 Mg Tablet) 1 mg PO TID PRN PRN Reason: panic attack Last Admin: 10/29/23 19:10 Dose: 1 mg Haloperidol Decanoate (Haloperidol Decanoate 50 Mg/Ml Vial) 100 mg IM Q30D [facility] Hydroxyzine HCl (Hydroxyzine Hcl 25 Mg Tablet) 25 mg PO Q6H PRN PRN Reason: Anxiety Last Admin: 10/29/23 19:10 Dose: 25 mg Levothyroxine Sodium (Levothyroxine Sodium 75 Mcg Tablet) 75 mcg PO DAILY@0630 [facility] Last Admin: 10/30/23 06:04 Dose: 75 mcg Magnesium Hydroxide (Milk Of Magnesia 30 Ml Oral.Susp) 30 ml PO DAILY PRN PRN Reason: Constipation Omeprazole (Omeprazole 20 Mg Capsule.Dr) 20 mg PO DAILY@30 [facility] Last Admin: 10/30/23 06:04 Dose: 20 mg Trazodone HCl (Trazodone Hcl 50 Mg Tablet) 50 mg PO BEDTIME MRX1 PRN PRN Reason: Insomnia Last Admin: 10/29/23 20:50 Dose: 50 mg Vitamin D (Cholecalciferol (Vitamin D3) 25 Mcg Tablet) 25 mcg PO DAILY [facility] Last Admin: 10/30/23 08:29 Dose: 25 mcg Allergies Allergies Allergy/AdvReac Type Severity Reaction Status Date / Time aripiprazole Allergy Mild Unknown Verified 10/07/23 07:50 bupropion AdvReac Unknown Verified 10/07/23 07:50 divalproex sodium AdvReac Unknown Verified 10/07/23 07:50 [From Depakote] risperidone AdvReac Unknown Verified 10/07/23 07:50 Assessment & Plan Assessment & Plan (1) Bipolar 1 disorder, mixed: Status: Acute Code(s): F31.60 - Bipolar disorder, current episode mixed, unspecified (2) OCD (obsessive compulsive disorder): Qualifiers: Obsessive-compulsive disorder type: mixed obsessional thoughts and acts Qualified Code(s): F42.2 - Mixed obsessional thoughts and acts Status: Acute Code(s): F42.9 - Obsessive-compulsive disorder, unspecified (3) Abnormal EEG: Status: Acute Code(s): R94.01 - Abnormal electroencephalogram [EEG] Assessment and Plan: 47 years old woman who was admitted in hospital with severe depression. Previously she has reported some symptoms suggestive of complex partial seizures and had mildly abnormal EEG. At this time her presentation was different but I would suggest obtaining an EEG again. In addition, if a mood stabilizer is needed, I would recommend using lamotrigine, topiramate, or valproic acid. (4) History of electroconvulsive therapy: Status: Acute Code(s): Z98.890 - Other specified postprocedural states Plan 47 yo woman with chronic Bipolar Disorder and OCD with severe anxiety and restlessness, intrusive behavior, ruminating and pacing in need of hospital treatment admitted on CV to [facility]. Hospital course: 10/24: Neurology saw patient recommended repeat EEG. ?ECT. Clarify Depakote allergy. 10/26: Continue current management and treatment plan. Repeat EEG pending. telephone call to adrien Alfredo and email to arrange a time to talk with her about medication reactions as pt does not recall; increase vraylar to 3mg daily 10/27 continue plan; waiting to hear back from Sayda re medication reaction but have the list of meds with which she had poor reactions. consider increase vraylar if needed and consider scheduled clonazepam; Sayda (cousin) reports pt has a referral to [facility] neurology already for after care but no appt yet. 10/28 Patient tearful, hard to express herself through emotions; saying that she is scared she will never get better, trying to push herself to go to groups... She is following staff's recommendations at behavioral activation however it is also causing her some stress as she can not tell how long she supposed to be out of her room, engaged with others feeling very unable to decide how much time she should be allowed to stay in her room by herself.... [employer] Depositor tried to talk this through with her but patient had a hard time discussing therapeutic approaches to to her emotionality. That said, patient feels somewhat improved since she 1st came in and said that she is feeling so-so in addition to being scared and anxious. She does say however that she is suffering which is apparent. Patient said that the last time she was hospitalized was in 2019 and when discharged, was overall feeling that she was doing pretty well. Discussed medication regimen and patient is not sure why medications were changed over these years but she agrees to get back on past regimen; also discussed ECT but patient can not remember if she thought this was helpful or not. Patient gave permission to talk to her provider, her cousin who is also her healthcare proxy. Per staff, covering provider, pt improved a little since admission: She is less tearful and no begging, getting on her knees with hands clapsed as she did on first day; -pt tolerating the vraylar which was increased to 3mg yesterday. pt remains tortured by worries, depression, indecisiveness...though a little less intensely so then on admission. Pt says it's very hard for her to do anything and she just wants to go lie in bed; however, she agrees to force herself to groups. Apologetically Rejects some activities recommended saying she's too anxious to attend. -cousin/HCP Sayda: gave hx -Says Haldol has historically worked the best; agrees with re-trial of Lamicta; continue w/ Vraylar -She voiced [facility] MRI concerns; commercial underwriter able to read impression which does refer to lesion Right Frontal lobe (not in meditech) 10/29 pt agrees she's doing a little better...says a little less anxious-maybe due to Vraylar; affect is more calm; agrees to continue -continues to feel depressed and struggles with both ocd-obsessional worries and indecisiveness (can't tolerate picking out menu, cloths...what to do w/ time). Agrees to restart Lamictal to help w/ OCD Impression/decision making: History of difficult to treat depression, OCD; past history show some improvement on mood stabilizer and ECT. Lamictal may be a good choice since it can help treat OCD and does not trigger manic episodes; has not seemed to tolerate SSRI. ECT not helpful (maybe because hard to get good seizure since on benzos/depakote?) -will continue with Haldol -will continue w/ Vraylar started on admission -starting lamictal Plan CV Q 15 START Lamictal 25mg qhs Continue Vraylar 3mg (discussed risk vs benefits and possible side effect; pt agrees to trial) -continue haldol dec -look further into MRI impression -DC'd Prozac concern for bipolar disorder, dry mouth Neurology consult 10/24 Dr. Ma, 47 years old woman admitted in hospital with severe depression and self-harm type of behavior. Couple of years ago she was admitted in hospital and reported episodes of her patel type of feeling going to her head lasting for seconds to minutes. At that time an EEG revealed left temporal sharp waves. CT scan and MRI of brain were okay. however, [facility] MRI concerns; commercial underwriter able to read impression from [facility] 09/17/23 which does refer to lesion Right Frontal lobe (not in meditech); will discuss with neuro Med trials: Haldol: worked the best ! Lamictal: did not seem to help, but...may have been too low a dose Fluvoxamine? not sure if helpful ECT: no help; memory loss Clozapine: did not tolerate frequent blood draws abilify: severe restlessness Risperdal: severe restlessness [place]: bed-wetting; not sure if helped Depakote: muscle cramps, restless... Latuda: TD Seroquel 50 mg Q 4 p.r.n. (makes aggressive) Nuedexta (Dextromethorphan /Quinidine) for uncontrollable crying/laughing Oxybutynin 10 mg Propranolol 20 mg t.i.d. hx: -Psych admission 2019 [place] -Residential for 1 year 2019- did ok, ups/downs; lots of med changes -Home with Cousin 2020-current: past 2.5 years overall good enough, lots of up/downs and med changes BETH and some trouble breathing? Seratonin Syndrom on some meds for depression? (not sure details) -Thinks recent decomp result of adding Paxil which caused high irritability/manic/obsessive and then Prozac which caused the same; since then, outpt provider trying to do a reset on meds... Says when at home w/ Cousin, ups/downs but was able to overall function at home with sufficient good enough periods where she'd go out and do activities (with help), put on makeup, enjoy things...Sayda reports constant medication changes making it difficult to know what meds worked or at least were partially helpful...wonders that during down times, it would be better to just wait it out rather than make med changes. Thinks recent decomp result of adding Paxil which caused high irritability/manic/obsessive and then Prozac which caused the same; since then, outpt provider trying to do a reset on meds.. Patient educated on: diagnosis and medication risk/benefits Informed Consent: understands Reason for continued inpatient stay Substantial Risk for: inability to function and rapid decompensation Time Spent With Patient Time: Total time managing care of this patient today ____ minutes.
[2023-10-30 18:20] VITALS: BP 133/85; PULSE 99; RESP 16; TEMP 36.3; O2SAT 94
[2023-10-30] MEDS: Acetaminophen 325 MG TABLET 650 MG PO (18:20)
[2023-10-30] MEDS: clonazePAM 1 MG TABLET PO (18:20)
[2023-10-30] MEDS: traZODone HCL 50 MG TABLET PO (21:14)
--- NOTE | 2023-10-31 | ECG_ITS ---
Test Reason : QTc Blood Pressure : / mmHG Vent. Rate : 086 BPM Atrial Rate : 086 BPM P-R Int : 152 ms QRS Dur : 084 ms QT Int : 366 ms P-R-T Axes : 060 -02 034 degrees QTc Int : 437 ms Normal sinus rhythm Normal ECG When compared with ECG of 21-OCT-2023 08:32, No significant change was found Referred By: Al Milian Electronically Signed By:KATERIN PATEL
[2023-10-31] MEDS: Omeprazole 20 MG CAPSULE.DR PO (05:55)
[2023-10-31] MEDS: Levothyroxine Sodium 75 MCG TABLET PO (05:55)
[2023-10-31] MEDS: Acetaminophen 325 MG TABLET 650 MG PO ×3 (06:04→21:54)
[2023-10-31] MEDS: Cholecalciferol (Vitamin D3) 25 MCG TABLET PO (08:59)
[2023-10-31] MEDS: Benztropine Mesylate 1 MG TABLET PO ×2 (08:59→20:33)
[2023-10-31] MEDS: Cariprazine HCl 3 MG CAPSULE PO (08:59)
[2023-10-31 09:12] VITALS: BP 116/81; PULSE 82; RESP 16; TEMP 36.5; O2SAT 100
--- NOTE | 2023-10-31 13:24 | HO.PSYCHPN ---
Subjective Subjective Date of Service: 10/31/23 Reason For Visit: Bipolar Disorder Subjective Notes: Conditional Voluntary Medical Problems Affecting Mental Status: No Interim History: Pt with perseverative anxiety - thinks the only thing that will work is impossible but gets so tangential doesn't tell me what it is- immediately in tears- Suggested ECT to patient she says they did it last time and it didn't help much Medication Compliance: Yes Side effects from medications: No Attending Groups: No Review of Systems Acute medical concerns: No Medical Review of Systems: unchanged Mental Status Exam Mental Status Exam Patient Appearance: Well Grooomed (just out of shower in mejia aparel) and Appropriate Patient Orientation: Person, Place, Time and Situation Level of Consciousness: Awake Patient Behavior: Good Eye Contact and Crying Mood Description: Anxious and Sad Affect Description: Blunted (restricted) Patient Cognition Impaired: No Ability to Follow Directions: Fair Speech Pattern: Clear Thought Process: Rumination Thought Content: positive for Perseveration Depressive Symptoms: Increased Anxiety (ongoing) Judgement: Fair Diagnostics Vital Signs (24Hr): Vital Signs - 24 hr 10/30/23 18:20 10/31/23 09:12 Temperature 97.3 F 97.7 F Pulse Rate 99 82 Respiratory Rate 16 16 Blood Pressure 133/85 116/81 Pulse Oximetry 94 100 Oxygen Delivery Method Room Air Room Air BMI result Body Mass Index 32.5 Labs 10/20/23 20:19 10/20/23 20:19 Medications Medications Current Medications Acetaminophen (Acetaminophen 325 Mg Tablet) 650 mg PO Q6H PRN PRN Reason: Headache/Pain Mild Scale (1-3) Last Admin: 10/31/23 06:04 Dose: 650 mg Al Hydroxide/Mg Hydroxide (Magnesium Hydrox/Alum Hydrox 30 Ml Oral.Susp) 30 ml PO Q6H PRN PRN Reason: Heartburn/Nausea Last Admin: 10/27/23 13:38 Dose: 30 ml Benztropine Mesylate (Benztropine Mesylate 1 Mg Tablet) 1 mg PO BID [place] Last Admin: 10/31/23 08:59 Dose: 1 mg Cariprazine (Cariprazine Hcl 3 Mg Capsule) 3 mg PO DAILY [place] Last Admin: 10/31/23 08:59 Dose: 3 mg Clonazepam (Clonazepam 1 Mg Tablet) 1 mg PO TID PRN PRN Reason: panic attack Last Admin: 10/30/23 18:20 Dose: 1 mg Haloperidol (Haloperidol 1 Mg Tablet) 1 mg PO Q4H PRN PRN Reason: anxiety/agitation Haloperidol Decanoate (Haloperidol Decanoate 50 Mg/Ml Vial) 100 mg IM Q30D [facility] Hydroxyzine HCl (Hydroxyzine Hcl 25 Mg Tablet) 25 mg PO Q6H PRN PRN Reason: Anxiety Last Admin: 10/29/23 19:10 Dose: 25 mg Lamotrigine (Lamotrigine 25 Mg Tablet) 25 mg PO BEDTIME [facility] Levothyroxine Sodium (Levothyroxine Sodium 75 Mcg Tablet) 75 mcg PO DAILY@629 [facility] Last Admin: 10/31/23 05:55 Dose: 75 mcg Magnesium Hydroxide (Milk Of Magnesia 30 Ml Oral.Susp) 30 ml PO DAILY PRN PRN Reason: Constipation Omeprazole (Omeprazole 20 Mg Capsule.Dr) 20 mg PO DAILY@629 [facility] Last Admin: 10/31/23 05:55 Dose: 20 mg Trazodone HCl (Trazodone Hcl 50 Mg Tablet) 50 mg PO BEDTIME MRX1 PRN PRN Reason: Insomnia Last Admin: 10/30/23 21:14 Dose: 50 mg Vitamin D (Cholecalciferol (Vitamin D3) 25 Mcg Tablet) 25 mcg PO DAILY [facility] Last Admin: 10/31/23 08:59 Dose: 25 mcg Allergies Allergies Allergy/AdvReac Type Severity Reaction Status Date / Time aripiprazole Allergy Mild Unknown Verified 10/07/23 07:50 bupropion AdvReac Unknown Verified 10/07/23 07:50 divalproex sodium AdvReac Unknown Verified 10/07/23 07:50 [From Depakote] risperidone AdvReac Unknown Verified 10/07/23 07:50 Assessment & Plan Assessment & Plan (1) Bipolar 1 disorder, mixed: Status: Acute Code(s): F31.60 - Bipolar disorder, current episode mixed, unspecified (2) OCD (obsessive compulsive disorder): Qualifiers: Obsessive-compulsive disorder type: mixed obsessional thoughts and acts Qualified Code(s): F42.2 - Mixed obsessional thoughts and acts Status: Acute Code(s): F42.9 - Obsessive-compulsive disorder, unspecified (3) Abnormal EEG: Status: Acute Code(s): R94.01 - Abnormal electroencephalogram [EEG] Assessment and Plan: 47 years old woman who was admitted in hospital with severe depression. Previously she has reported some symptoms suggestive of complex partial seizures and had mildly abnormal EEG. At this time her presentation was different but I would suggest obtaining an EEG again. In addition, if a mood stabilizer is needed, I would recommend using lamotrigine, topiramate, or valproic acid. (4) History of electroconvulsive therapy: Status: Acute Code(s): Z98.890 - Other specified postprocedural states Plan 47 yo woman with chronic Bipolar Disorder and OCD with severe anxiety and restlessness, intrusive behavior, ruminating and pacing in need of hospital treatment admitted on CV to [facility]. Hospital course: 10/24: Neurology saw patient recommended repeat EEG. ?ECT. Clarify Depakote allergy. 10/26: Continue current management and treatment plan. Repeat EEG pending. telephone call to adrien Gonzalese and email to arrange a time to talk with her about medication reactions as pt does not recall; increase vraylar to 3mg daily 10/27 continue plan; waiting to hear back from Sayda re medication reaction but have the list of meds with which she had poor reactions. consider increase vraylar if needed and consider scheduled clonazepam; Sayda (cousin) reports pt has a referral to [facility] neurology already for after care but no appt yet. 10/28 Patient tearful, hard to express herself through emotions; saying that she is scared she will never get better, trying to push herself to go to groups... She is following staff's recommendations at behavioral activation however it is also causing her some stress as she can not tell how long she supposed to be out of her room, engaged with others feeling very unable to decide how much time she should be allowed to stay in her room by herself.... Brewery Pumper tried to talk this through with her but patient had a hard time discussing therapeutic approaches to to her emotionality. That said, patient feels somewhat improved since she 1st came in and said that she is feeling so-so in addition to being scared and anxious. She does say however that she is suffering which is apparent. Patient said that the last time she was hospitalized was in 2019 and when discharged, was overall feeling that she was doing pretty well. Discussed medication regimen and patient is not sure why medications were changed over these years but she agrees to get back on past regimen; also discussed ECT but patient can not remember if she thought this was helpful or not. Patient gave permission to talk to her provider, her cousin who is also her healthcare proxy. Per staff, covering provider, pt improved a little since admission: She is less tearful and no begging, getting on her knees with hands clapsed as she did on first day; -pt tolerating the vraylar which was increased to 3mg yesterday. pt remains tortured by worries, depression, indecisiveness...though a little less intensely so then on admission. Pt says it's very hard for her to do anything and she just wants to go lie in bed; however, she agrees to force herself to groups. Apologetically Rejects some activities recommended saying she's too anxious to attend. -cousin/HCP Sayda: gave hx -Says Haldol has historically worked the best; agrees with re-trial of Lamicta; continue w/ Vraylar -She voiced [facility] MRI concerns; telegraphic typewriter installer able to read impression which does refer to lesion Right Frontal lobe (not in meditech) 10/29 pt agrees she's doing a little better...says a little less anxious-maybe due to Vraylar; affect is more calm; agrees to continue -continues to feel depressed and struggles with both ocd-obsessional worries and indecisiveness (can't tolerate picking out menu, cloths...what to do w/ time). Agrees to restart Lamictal to help w/ OCD Impression/decision making: History of difficult to treat depression, OCD; past history show some improvement on mood stabilizer and ECT. Lamictal may be a good choice since it can help treat OCD and does not trigger manic episodes; has not seemed to tolerate SSRI. ECT not helpful (maybe because hard to get good seizure since on benzos/depakote?) -will continue with Haldol -will continue w/ Vraylar started on admission -starting lamictal Plan CV Q 15 START Lamictal 25mg qhs Continue Vraylar 3mg (discussed risk vs benefits and possible side effect; pt agrees to trial) -continue haldol dec -look further into MRI impression -DC'd Prozac concern for bipolar disorder, dry mouth Neurology consult 10/24 Dr. Ma, 47 years old woman admitted in hospital with severe depression and self-harm type of behavior. Couple of years ago she was admitted in hospital and reported episodes of her patel type of feeling going to her head lasting for seconds to minutes. At that time an EEG revealed left temporal sharp waves. CT scan and MRI of brain were okay. however, [facility] MRI concerns; telegraphic typewriter installer able to read impression from [facility] 09/17/23 which does refer to lesion Right Frontal lobe (not in meditech); will discuss with neuro Med trials: Haldol: worked the best ! Lamictal: did not seem to help, but...may have been too low a dose Fluvoxamine? not sure if helpful ECT: no help; memory loss Clozapine: did not tolerate frequent blood draws abilify: severe restlessness Risperdal: severe restlessness [place]: bed-wetting; not sure if helped Depakote: muscle cramps, restless... Latuda: TD Seroquel 50 mg Q 4 p.r.n. (makes aggressive) Nuedexta (Dextromethorphan /Quinidine) for uncontrollable crying/laughing Oxybutynin 10 mg Propranolol 20 mg t.i.d. hx: -Psych admission 2019 [facility] -Residential for 1 year 2019- did ok, ups/downs; lots of med changes -Home with Cousin 2020-current: past 2.5 years overall good enough, lots of up/downs and med changes BETH and some trouble breathing? Seratonin Syndrom on some meds for depression? (not sure details) -Thinks recent decomp result of adding Paxil which caused high irritability/manic/obsessive and then Prozac which caused the same; since then, outpt provider trying to do a reset on meds... Says when at home w/ Cousin, ups/downs but was able to overall function at home with sufficient good enough periods where she'd go out and do activities (with help), put on makeup, enjoy things...Sayda reports constant medication changes making it difficult to know what meds worked or at least were partially helpful...wonders that during down times, it would be better to just wait it out rather than make med changes. Thinks recent decomp result of adding Paxil which caused high irritability/manic/obsessive and then Prozac which caused the same; since then, outpt provider trying to do a reset on meds.. 10/31/23 CTP (started on vraylar and lamotrigine) Patient educated on: therapeutic strategies Informed Consent: further education needed Reason for continued inpatient stay Substantial Risk for: rapid decompensation Time Spent With Patient Time: Total time managing care of this patient today ____ minutes.
--- NOTE | 2023-10-31 16:14 | ECG_ITS ---
Test Reason : check qtc Blood Pressure : / mmHG Vent. Rate : 081 BPM Atrial Rate : 081 BPM P-R Int : 150 ms QRS Dur : 084 ms QT Int : 366 ms P-R-T Axes : 057 -01 034 degrees QTc Int : 425 ms Normal sinus rhythm Normal ECG When compared with ECG of 31-OCT-2023 16:14, No significant change was found Referred By: Al Milian Electronically Signed By:KATERIN PATEL
[2023-10-31 20:29] VITALS: BP 126/62; PULSE 105; RESP 19; TEMP 36.4; O2SAT 100
[2023-10-31] MEDS: clonazePAM 1 MG TABLET PO (20:33)
[2023-10-31] MEDS: HaloperidoL 1 MG TABLET PO (20:33)
[2023-10-31] MEDS: lamoTRIgine 25 MG TABLET PO (20:33)
[2023-11-01] MEDS: Levothyroxine Sodium 75 MCG TABLET PO (06:25)
[2023-11-01] MEDS: Omeprazole 20 MG CAPSULE.DR PO (06:25)
[2023-11-01 08:15] VITALS: BP 121/68; PULSE 73; RESP 16; TEMP 36.3; O2SAT 99
[2023-11-01] MEDS: Acetaminophen 325 MG TABLET 650 MG PO ×2 (09:04→17:58)
[2023-11-01] MEDS: Benztropine Mesylate 1 MG TABLET PO ×2 (09:04→20:21)
[2023-11-01] MEDS: Cariprazine HCl 3 MG CAPSULE PO (09:04)
[2023-11-01] MEDS: Cholecalciferol (Vitamin D3) 25 MCG TABLET PO (09:04)
--- NOTE | 2023-11-01 11:10 | P.PNPSI_ITS ---
Subjective Subjective Date of Service: 11/01/23 Reason For Visit: Bipolar Disorder Subjective Notes: Conditional Voluntary Healthcare Proxy: No Guardianship: No Medical Problems Affecting Mental Status: No Interim History: 47 yo HF with anxious depression mix- feels stuck if paces her body hurts if she stays in bed she gets in trouble with staff around being withdrawn and won't be sent home Suggested she got to kitchen and hang out- do puzzle or draw- she is too anxious to engage with others she reports. Medication Compliance: Yes Side effects from medications: No Attending Groups: No Review of Systems Acute medical concerns: No Medical Review of Systems: changed Review of Systems: co pain in leg from pacing yesterday in [place]- also muscle tension in neck Mental Status Exam Mental Status Exam Narrative: dressed in pjs , lying in bed facial expression of sadness/emotional pain- but no tears come she says Patient Orientation: Person, Place, Time and Situation Level of Consciousness: Awake Patient Behavior: Passive, Anxious and Fearful Mood Description: Withdrawn, Depressed and Apprehensive Affect Description: Blunted (restricted to angst) Patient Cognition Impaired: No Ability to Follow Directions: Fair Speech Pattern: Clear Thought Process: Rumination Thought Content: positive for Perseveration Depressive Symptoms: Increased Anxiety and Muscle Tension Abnormal Motor Activity Signs and Symptoms: Muscle Rigidity Judgement: Fair Diagnostics Vital Signs (24Hr): Vital Signs - 24 hr 10/31/23 20:29 11/01/23 08:15 Temperature 97.6 F 97.3 F Pulse Rate 105 H 73 Respiratory Rate 19 16 Blood Pressure 126/62 121/68 Pulse Oximetry 100 99 Oxygen Delivery Method Room Air Room Air BMI result Body Mass Index 32.5 Labs 10/20/23 20:19 10/20/23 20:19 Medications Medications Current Medications Acetaminophen (Acetaminophen 325 Mg Tablet) 650 mg PO Q6H PRN PRN Reason: Headache/Pain Mild Scale (1-3) Last Admin: 11/01/23 09:04 Dose: 650 mg Al Hydroxide/Mg Hydroxide (Magnesium Hydrox/Alum Hydrox 30 Ml Oral.Susp) 30 ml PO Q6H PRN PRN Reason: Heartburn/Nausea Last Admin: 10/27/23 13:38 Dose: 30 ml Benztropine Mesylate (Benztropine Mesylate 1 Mg Tablet) 1 mg PO BID [place] Last Admin: 11/01/23 09:04 Dose: 1 mg Cariprazine (Cariprazine Hcl 3 Mg Capsule) 3 mg PO DAILY [facility] Last Admin: 11/01/23 09:04 Dose: 3 mg Clonazepam (Clonazepam 1 Mg Tablet) 1 mg PO TID PRN PRN Reason: panic attack Last Admin: 10/31/23 20:33 Dose: 1 mg Haloperidol (Haloperidol 1 Mg Tablet) 1 mg PO Q4H PRN PRN Reason: anxiety/agitation Last Admin: 10/31/23 20:33 Dose: 1 mg Haloperidol Decanoate (Haloperidol Decanoate 50 Mg/Ml Vial) 100 mg IM Q30D [facility] Hydroxyzine HCl (Hydroxyzine Hcl 25 Mg Tablet) 25 mg PO Q6H PRN PRN Reason: Anxiety Last Admin: 10/29/23 19:10 Dose: 25 mg Lamotrigine (Lamotrigine 25 Mg Tablet) 25 mg PO BEDTIME [facility] Last Admin: 10/31/23 20:33 Dose: 25 mg Levothyroxine Sodium (Levothyroxine Sodium 75 Mcg Tablet) 75 mcg PO DAILY@0630 [facility] Last Admin: 11/01/23 06:25 Dose: 75 mcg Magnesium Hydroxide (Milk Of Magnesia 30 Ml Oral.Susp) 30 ml PO DAILY PRN PRN Reason: Constipation Omeprazole (Omeprazole 20 Mg Capsule.Dr) 20 mg PO DAILY@0630 [facility] Last Admin: 11/01/23 06:25 Dose: 20 mg Trazodone HCl (Trazodone Hcl 50 Mg Tablet) 50 mg PO BEDTIME MRX1 PRN PRN Reason: Insomnia Last Admin: 10/30/23 21:14 Dose: 50 mg Vitamin D (Cholecalciferol (Vitamin D3) 25 Mcg Tablet) 25 mcg PO DAILY [facility] Last Admin: 11/01/23 09:04 Dose: 25 mcg Allergies Allergies Allergy/AdvReac Type Severity Reaction Status Date / Time aripiprazole Allergy Mild Unknown Verified 10/07/23 07:50 bupropion AdvReac Unknown Verified 10/07/23 07:50 divalproex sodium AdvReac Unknown Verified 10/07/23 07:50 [From Depakote] risperidone AdvReac Unknown Verified 10/07/23 07:50 Assessment & Plan Assessment & Plan (1) Bipolar 1 disorder, mixed: Status: Acute Code(s): F31.60 - Bipolar disorder, current episode mixed, unspecified Assessment and Plan: 11/01/23 discussed trying gabapentin, tried to review prior hx of this but seems like hx is archived or I couldn't figure out how to access it- (2) OCD (obsessive compulsive disorder): Qualifiers: Obsessive-compulsive disorder type: mixed obsessional thoughts and acts Qualified Code(s): F42.2 - Mixed obsessional thoughts and acts Status: Acute Code(s): F42.9 - Obsessive-compulsive disorder, unspecified (3) Abnormal EEG: Status: Acute Code(s): R94.01 - Abnormal electroencephalogram [EEG] Assessment and Plan: 47 years old woman who was admitted in hospital with severe depression. Previously she has reported some symptoms suggestive of complex partial seizures and had mildly abnormal EEG. At this time her presentation was different but I would suggest obtaining an EEG again. In addition, if a mood stabilizer is needed, I would recommend using lamotrigine, topiramate, or valproic acid. (4) History of electroconvulsive therapy: Status: Acute Code(s): Z98.890 - Other specified postprocedural states Assessment and Plan: Pt reports this didn't help her last time she tried Plan 47 yo woman with chronic Bipolar Disorder and OCD with severe anxiety and restlessness, intrusive behavior, ruminating and pacing in need of hospital treatment admitted on CV to [facility]. Hospital course: 10/24: Neurology saw patient recommended repeat EEG. ?ECT. Clarify Depakote allergy. 10/26: Continue current management and treatment plan. Repeat EEG pending. telephone call to adrien Alfredo and email to arrange a time to talk with her about medication reactions as pt does not recall; increase vraylar to 3mg daily 10/27 continue plan; waiting to hear back from Sayda re medication reaction but have the list of meds with which she had poor reactions. consider increase vraylar if needed and consider scheduled clonazepam; Sayda (cousin) reports pt has a referral to [facility] neurology already for after care but no appt yet. 10/28 Patient tearful, hard to express herself through emotions; saying that she is scared she will never get better, trying to push herself to go to groups... She is following staff's recommendations at behavioral activation however it is also causing her some stress as she can not tell how long she supposed to be out of her room, engaged with others feeling very unable to decide how much time she should be allowed to stay in her room by herself.... Editor [employer] Founder tried to talk this through with her but patient had a hard time discussing therapeutic approaches to to her emotionality. That said, patient feels somewhat improved since she 1st came in and said that she is feeling so-so in addition to being scared and anxious. She does say however that she is suffering which is apparent. Patient said that the last time she was hospitalized was in 2019 and when discharged, was overall feeling that she was doing pretty well. Discussed medication regimen and patient is not sure why medications were changed over these years but she agrees to get back on past regimen; also discussed ECT but patient can not remember if she thought this was helpful or not. Patient gave permission to talk to her provider, her cousin who is also her healthcare proxy. Per staff, covering provider, pt improved a little since admission: She is less tearful and no begging, getting on her knees with hands clapsed as she did on first day; -pt tolerating the vraylar which was increased to 3mg yesterday. pt remains tortured by worries, depression, indecisiveness...though a little less intensely so then on admission. Pt says it's very hard for her to do anything and she just wants to go lie in bed; however, she agrees to force herself to groups. Apologetically Rejects some activities recommended saying she's too anxious to attend. -cousin/HCP Sayda: gave hx -Says Haldol has historically worked the best; agrees with re-trial of Lamicta; continue w/ Vraylar -She voiced [facility] MRI concerns; commercial underwriter able to read impression which does refer to lesion Right Frontal lobe (not in meditech) 10/29 pt agrees she's doing a little better...says a little less anxious-maybe due to Vraylar; affect is more calm; agrees to continue -continues to feel depressed and struggles with both ocd-obsessional worries and indecisiveness (can't tolerate picking out menu, cloths...what to do w/ time). Agrees to restart Lamictal to help w/ OCD Impression/decision making: History of difficult to treat depression, OCD; past history show some improvement on mood stabilizer and ECT. Lamictal may be a good choice since it can help treat OCD and does not trigger manic episodes; has not seemed to tolerate SSRI. ECT not helpful (maybe because hard to get good seizure since on benzos/depakote?) -will continue with Haldol -will continue w/ Vraylar started on admission -starting lamictal Plan CV Q 15 START Lamictal 25mg qhs Continue Vraylar 3mg (discussed risk vs benefits and possible side effect; pt agrees to trial) -continue haldol dec -look further into MRI impression -DC'd Prozac concern for bipolar disorder, dry mouth Neurology consult 10/24 Dr. Ma, 47 years old woman admitted in hospital with severe depression and self-harm type of behavior. Couple of years ago she was admitted in hospital and reported episodes of her patel type of feeling going to her head lasting for seconds to minutes. At that time an EEG revealed left temporal sharp waves. CT scan and MRI of brain were okay. however, [facility] MRI concerns; commercial underwriter able to read impression from [facility] 09/17/23 which does refer to lesion Right Frontal lobe ([facility] will discuss with neuro Med trials: Haldol: worked the best ! Lamictal: did not seem to help, but...may have been too low a dose Fluvoxamine? not sure if helpful ECT: no help; memory loss Clozapine: did not tolerate frequent blood draws abilify: severe restlessness Risperdal: severe restlessness [place]: bed-wetting; not sure if helped Depakote: muscle cramps, restless... Latuda: TD Seroquel 50 mg Q 4 p.r.n. (makes aggressive) Nuedexta (Dextromethorphan /Quinidine) for uncontrollable crying/laughing Oxybutynin 10 mg Propranolol 20 mg t.i.d. hx: -Psych admission 2019 [place] -Residential for 1 year did ok, ups/downs; lots of med changes -Home with Cousin 2020-current: past 2.5 years overall good enough, lots of up/downs and med changes BETH and some trouble breathing? Seratonin Syndrom on some meds for depression? (not sure details) -Thinks recent decomp result of adding Paxil which caused high irritability/manic/obsessive and then Prozac which caused the same; since then, outpt provider trying to do a reset on meds... Says when at home w/ Cousin, ups/downs but was able to overall function at home with sufficient good enough periods where she'd go out and do activities (with help), put on makeup, enjoy things...Sayda reports constant medication changes making it difficult to know what meds worked or at least were partially helpful...wonders that during down times, it would be better to just wait it out rather than make med changes. Thinks recent decomp result of adding Paxil which caused high irritability/manic/obsessive and then Prozac which caused the same; since then, outpt provider trying to do a reset on meds.. 10/31/23 CTP (started on vraylar and lamotrigine) 11/01/23 added gabapentin to see if more immediate effect- watch for sedation cortes combined with clonazepam- Patient educated on: medication risk/benefits Informed Consent: understands Reason for continued inpatient stay Substantial Risk for: inability to function and rapid decompensation Time Spent With Patient Time: Total time managing care of this patient today ____ minutes.
[2023-11-01] MEDS: Gabapentin 100 MG CAPSULE PO ×2 (15:01→20:21)
[2023-11-01] MEDS: HaloperidoL 1 MG TABLET PO (15:01)
[2023-11-01] MEDS: hydrOXYzine HCL 25 MG TABLET PO (17:58)
[2023-11-01] MEDS: clonazePAM 1 MG TABLET PO (17:58)
[2023-11-01 18:00] VITALS: BP 109/71; PULSE 105; RESP 18; TEMP 36.6; O2SAT 99
[2023-11-01] MEDS: lamoTRIgine 25 MG TABLET PO (20:21)
[2023-11-02] MEDS: Omeprazole 20 MG CAPSULE.DR PO (06:05)
[2023-11-02] MEDS: Levothyroxine Sodium 75 MCG TABLET PO (06:05)
[2023-11-02 08:25] VITALS: BP 117/65; PULSE 75; RESP 18; TEMP 36.9; O2SAT 100
[2023-11-02] MEDS: Cariprazine HCl 3 MG CAPSULE PO (09:33)
[2023-11-02] MEDS: Cholecalciferol (Vitamin D3) 25 MCG TABLET PO (09:33)
[2023-11-02] MEDS: Benztropine Mesylate 1 MG TABLET PO ×2 (09:33→21:40)
[2023-11-02] MEDS: Gabapentin 100 MG CAPSULE PO ×3 (09:33→21:40)
--- NOTE | 2023-11-02 10:25 | P.PNPSI_ITS ---
Subjective Subjective Date of Service: 11/02/23 Reason For Visit: Bipolar Disorder Interim History: met with patient; discussed with team; reviewed chart she says she's so-so. Pt not as tearful as on admission, but still very anxious and she has not gone to groups for past 3 days. She is petrified about having to make decisions...brief writer discussed having cousin bring in cloths so she could get back to choosing what to wear (something she's mostly able to do when stable) and pt became overwhelmed, panicky feeling it's too hard for her to do. Discussed taking small steps to this goal regarding medications, pt agreed to increase in Vraylar and prn haldol. Mental Status Exam Mental Status Exam Narrative: Pt is alert and oriented; behavior is still quite anxious, prone to isolating, but cooperative, little more calm, less tearful; dressed in hospital attire with adequate hygiene; mood is described as so-so and affect constricted and anxious; eye contact appropriate; Speech is normal rate, volume and prosody and not pressured; both psychomotor agitation/retardation intermittently present; thought process is organized and goal directed; Thought content is on fearfulness, anxiety, hopelessness; tx; otherwise pertinent to relevant topics and without any delusional content, paranoid ideations or grandiosity; denies any SI/HI. There is no evidence of perceptual disturbance. Patients insight and judgment impaired Diagnostics Vital Signs (24Hr): Vital Signs - 24 hr 11/01/23 18:00 11/02/23 08:25 Temperature 97.8 F 98.4 F Pulse Rate 105 H 75 Respiratory Rate 18 18 Blood Pressure 109/71 117/65 Pulse Oximetry 99 100 Oxygen Delivery Method Room Air Room Air BMI result Body Mass Index 32.5 Labs 10/20/23 20:19 10/20/23 20:19 Medications Medications Current Medications Acetaminophen (Acetaminophen 325 Mg Tablet) 650 mg PO Q6H PRN PRN Reason: Headache/Pain Mild Scale (1-3) Last Admin: 11/01/23 17:58 Dose: 650 mg Al Hydroxide/Mg Hydroxide (Magnesium Hydrox/Alum Hydrox 30 Ml Oral.Susp) 30 ml PO Q6H PRN PRN Reason: Heartburn/Nausea Last Admin: 10/27/23 13:38 Dose: 30 ml Benztropine Mesylate (Benztropine Mesylate 1 Mg Tablet) 1 mg PO BID [facility] Last Admin: 11/02/23 09:33 Dose: 1 mg Cariprazine (Cariprazine Hcl 3 Mg Capsule) 3 mg PO DAILY [facility] Last Admin: 11/02/23 09:33 Dose: 3 mg Clonazepam (Clonazepam 1 Mg Tablet) 1 mg PO TID PRN PRN Reason: panic attack Last Admin: 11/01/23 17:58 Dose: 1 mg Gabapentin (Gabapentin 100 Mg Capsule) 100 mg PO TID [facility] Last Admin: 11/02/23 09:33 Dose: 100 mg Haloperidol (Haloperidol 1 Mg Tablet) 1 mg PO Q4H PRN PRN Reason: anxiety/agitation Last Admin: 11/01/23 15:01 Dose: 1 mg Haloperidol Decanoate (Haloperidol Decanoate 50 Mg/Ml Vial) 100 mg IM Q30D [facility] Hydroxyzine HCl (Hydroxyzine Hcl 25 Mg Tablet) 25 mg PO Q6H PRN PRN Reason: Anxiety Last Admin: 11/01/23 17:58 Dose: 25 mg Lamotrigine (Lamotrigine 25 Mg Tablet) 25 mg PO BEDTIME [facility] Last Admin: 11/01/23 20:21 Dose: 25 mg Levothyroxine Sodium (Levothyroxine Sodium 75 Mcg Tablet) 75 mcg PO DAILY@0630 [facility] Last Admin: 11/02/23 06:05 Dose: 75 mcg Magnesium Hydroxide (Milk Of Magnesia 30 Ml Oral.Susp) 30 ml PO DAILY PRN PRN Reason: Constipation Omeprazole (Omeprazole 20 Mg Capsule.Dr) 20 mg PO DAILY@0630 [facility] Last Admin: 11/02/23 06:05 Dose: 20 mg Trazodone HCl (Trazodone Hcl 50 Mg Tablet) 50 mg PO BEDTIME MRX1 PRN PRN Reason: Insomnia Last Admin: 10/30/23 21:14 Dose: 50 mg Vitamin D (Cholecalciferol (Vitamin D3) 25 Mcg Tablet) 25 mcg PO DAILY [facility] Last Admin: 11/02/23 09:33 Dose: 25 mcg Allergies Allergies Allergy/AdvReac Type Severity Reaction Status Date / Time aripiprazole Allergy Mild Unknown Verified 10/07/23 07:50 bupropion AdvReac Unknown Verified 10/07/23 07:50 divalproex sodium AdvReac Unknown Verified 10/07/23 07:50 [From Depakote] risperidone AdvReac Unknown Verified 10/07/23 07:50 Assessment & Plan Assessment & Plan (1) Bipolar 1 disorder, mixed: Status: Acute Code(s): F31.60 - Bipolar disorder, current episode mixed, unspecified Assessment and Plan: 11/01/23 discussed trying gabapentin, tried to review prior hx of this but seems like hx is archived or I couldn't figure out how to access it- (2) OCD (obsessive compulsive disorder): Qualifiers: Obsessive-compulsive disorder type: mixed obsessional thoughts and acts Qualified Code(s): F42.2 - Mixed obsessional thoughts and acts Status: Acute Code(s): F42.9 - Obsessive-compulsive disorder, unspecified (3) Abnormal EEG: Status: Acute Code(s): R94.01 - Abnormal electroencephalogram [EEG] Assessment and Plan: 47 years old woman who was admitted in hospital with severe depression. Previously she has reported some symptoms suggestive of complex partial seizures and had mildly abnormal EEG. At this time her presentation was different but I would suggest obtaining an EEG again. In addition, if a mood stabilizer is needed, I would recommend using lamotrigine, topiramate, or valproic acid. (4) History of electroconvulsive therapy: Status: Acute Code(s): Z98.890 - Other specified postprocedural states Assessment and Plan: Pt reports this didn't help her last time she tried Plan 47 yo woman with chronic Bipolar Disorder and OCD with severe anxiety and restlessness, intrusive behavior, ruminating and pacing in need of hospital treatment admitted on CV to [facility]. Impression/decision making: History of difficult to treat bipolar depression, OCD. Haldol has been helpful and pt will continue on it, but many other failed med trials including antipsychotics, mood stabilizers and SSRI's; ECT in past not helpful (maybe because hard to get good seizure since on benzos/depakote?). Pt started on Vraylar for bipolar depression and Lamictal for OCD (and depression/anxiety). Hospital course: 10/24: Neurology saw patient recommended repeat EEG. ?ECT. Clarify Depakote allergy. 10/26: Continue current management and treatment plan. Repeat EEG pending. telephone call to cousin Sayda and email to arrange a time to talk with her about medication reactions as pt does not recall; increase vraylar to 3mg daily 10/27 continue plan; waiting to hear back from Sayda re medication reaction but have the list of meds with which she had poor reactions. consider increase vraylar if needed and consider scheduled clonazepam; Sayda (cousin) reports pt has a referral to [facility] neurology already for after care but no appt yet. 10/28 Patient tearful, hard to express herself through emotions; saying that she is scared she will never get better, trying to push herself to go to groups... She is following staff's recommendations at behavioral activation however it is also causing her some stress as she can not tell how long she supposed to be out of her room, engaged with others feeling very unable to decide how much time she should be allowed to stay in her room by herself.... Cementing Machine Operator tried to talk this through with her but patient had a hard time discussing therapeutic approaches to to her emotionality. That said, patient feels somewhat improved since she 1st came in and said that she is feeling so-so in addition to being scared and anxious. She does say however that she is suffering which is apparent. Patient said that the last time she was hospitalized was in 2019 and when discharged, was overall feeling that she was doing pretty well. Discussed medication regimen and patient is not sure why medications were changed over these years but she agrees to get back on past regimen; also discussed ECT but patient can not remember if she thought this was helpful or not. Patient gave permission to talk to her provider, her cousin who is also her healthcare proxy. Per staff, covering provider, pt improved a little since admission: She is less tearful and no begging, getting on her knees with hands clapsed as she did on first day; -pt tolerating the vraylar which was increased to 3mg yesterday. pt remains tortured by worries, depression, indecisiveness...though a little less intensely so then on admission. Pt says it's very hard for her to do anything and she just wants to go lie in bed; however, she agrees to force herself to groups. Apologetically Rejects some activities recommended saying she's too anxious to attend. -cousin/HCP Sayda: gave hx -Says Haldol has historically worked the best; agrees with re-trial of Lamicta; continue w/ Vraylar -She voiced [facility] MRI concerns; brief writer able to read impression which does refer to lesion Right Frontal lobe (not in [facility]) 10/29 pt agrees she's doing a little better...says a little less anxious-maybe due to Vraylar; affect is more calm; agrees to continue -continues to feel depressed and struggles with both ocd-obsessional worries and indecisiveness (can't tolerate picking out menu, cloths...what to do w/ time). Agrees to restart Lamictal to help w/ OCD 10/31/23 CTP (started on vraylar and lamotrigine) 11/01/23 added gabapentin to see if more immediate effect- watch for sedation cortes combined with clonazepam- 11/01 still very anxious, paralyzed by indecision, depressed; increasing Vrayar Plan CV Q 15 working with OT for help with CBT continue Lamictal 25mg qhs Increase to Vraylar 4.5mg (discussed risk vs benefits and possible side effect; pt agrees to trial) -continue haldol dec (due November 10?) -look further into MRI impression -DC'd Prozac concern for bipolar disorder, dry mouth Neurology consult 10/24 Dr. Ma, 47 years old woman admitted in hospital with severe depression and self-harm type of behavior. Couple of years ago she was admitted in hospital and reported episodes of her patel type of feeling going to her head lasting for seconds to minutes. At that time an EEG revealed left temporal sharp waves. CT scan and MRI of brain were okay. however, [facility] MRI concerns; brief writer able to read impression from [facility] 09/17/23 which does refer to lesion Right Frontal lobe (not in [facility]); will discuss with neuro Med trials: Haldol: worked the best ! Lamictal: did not seem to help, but...may have been too low a dose Fluvoxamine? not sure if helpful ECT: no help; memory loss Clozapine: did not tolerate frequent blood draws abilify: severe restlessness Risperdal: severe restlessness [place]: bed-wetting; not sure if helped Depakote: muscle cramps, restless... Latuda: TD Seroquel 50 mg Q 4 p.r.n. (makes aggressive) Nuedexta (Dextromethorphan /Quinidine) for uncontrollable crying/laughing Oxybutynin 10 mg Propranolol 20 mg t.i.d. hx: -Psych admission 2019 [facility] -[facility] for 1 year 2019- did ok, ups/downs; lots of med changes -Home with Cousin 2020-current: past 2.5 years overall good enough, lots of up/downs and med changes BETH and some trouble breathing? Seratonin Syndrom on some meds for depression? (not sure details) -Thinks recent decomp result of adding Paxil which caused high irritability/manic/obsessive and then Prozac which caused the same; since then, outpt provider trying to do a reset on meds... Says when at home w/ Cousin, ups/downs but was able to overall function at home with sufficient good enough periods where she'd go out and do activities (with help), put on makeup, enjoy things...Sayda reports constant medication changes making it difficult to know what meds worked or at least were partially helpful...wonders that during down times, it would be better to just wait it out rather than make med changes. Thinks recent decomp result of adding Paxil which caused high irritability/manic/obsessive and then Prozac which caused the same; since then, outpt provider trying to do a reset on meds.. Patient educated on: diagnosis, medication risk/benefits and therapeutic strategies Informed Consent: understands Reason for continued inpatient stay Substantial Risk for: inability to function Time Spent With Patient Time: Total time managing care of this patient today ____ minutes.
[2023-11-02] MEDS: clonazePAM 1 MG TABLET PO (10:44)
[2023-11-02 18:00] VITALS: BP 118/80; PULSE 96; RESP 18; TEMP 36.6; O2SAT 97
[2023-11-02] MEDS: lamoTRIgine 25 MG TABLET PO (21:39)
[2023-11-03] MEDS: Milk of Magnesia 30 ML ORAL.SUSP PO (05:11)
[2023-11-03] MEDS: Levothyroxine Sodium 75 MCG TABLET PO (06:16)
[2023-11-03 08:02] VITALS: BP 124/80; PULSE 95; RESP 18; TEMP 36.8; O2SAT 100
[2023-11-03] MEDS: Cariprazine HCl 1.5 MG CAPSULE 4.5 MG PO (09:41)
[2023-11-03] MEDS: Benztropine Mesylate 1 MG TABLET PO ×2 (09:41→21:18)
[2023-11-03] MEDS: Gabapentin 100 MG CAPSULE PO ×3 (09:41→21:18)
[2023-11-03] MEDS: Omeprazole 20 MG CAPSULE.DR PO (09:41)
[2023-11-03] MEDS: Cholecalciferol (Vitamin D3) 25 MCG TABLET PO (09:41)
[2023-11-03] MEDS: clonazePAM 1 MG TABLET PO (10:19)
[2023-11-03] MEDS: HaloperidoL 1 MG TABLET PO (10:40)
--- NOTE | 2023-11-03 15:53 | P.PNPSI_ITS ---
Subjective Subjective Date of Service: 11/03/23 Reason For Visit: Bipolar Disorder Interim History: met with patient; discussed with team pt remains very anxious, paralyzed by her worries...again brought up that she's fearful of having to pick out her own cloths...expressed extreme frustration and shame that she gets overwhelmed when faced w/ choosing food off the menu. Pt did go to 3 groups today, saying she's pushing herself, but amidst tears, says all she wants to do is lay in bed. discussed med regimen; agrees to try Trileptal to see if it can help w/ anxiety given that Lamictal takes a while to reach therapeutic dose. Mental Status Exam Mental Status Exam Narrative: Pt is alert and oriented; behavior is still quite anxious, prone to isolating, but cooperative, little more calm, but still quite tearful and distressed with talking about treatment; dressed in hospital attire with adequate hygiene; mood is described as not good and affect constricted and anxious, downcast; eye contact appropriate; Speech is normal rate, volume and prosody and not pressured; both psychomotor agitation/retardation intermittently present; thought process is organized and goal directed; Thought content is on fearfulness, anxiety, hopelessness over getting better; tx; otherwise pertinent to relevant topics and without any delusional content, paranoid ideations or grandiosity; denies any SI/HI. There is no evidence of perceptual disturbance. Patients insight and judgment impaired Diagnostics Vital Signs (24Hr): Vital Signs - 24 hr 11/02/23 18:00 11/03/23 08:02 Temperature 97.9 F 98.2 F Pulse Rate 96 95 Respiratory Rate 18 18 Blood Pressure 118/80 124/80 Pulse Oximetry 97 100 Oxygen Delivery Method Room Air Room Air BMI result Body Mass Index 32.5 Labs 10/20/23 20:19 10/20/23 20:19 Medications Medications Current Medications Acetaminophen (Acetaminophen 325 Mg Tablet) 650 mg PO Q6H PRN PRN Reason: Headache/Pain Mild Scale (1-3) Last Admin: 11/01/23 17:58 Dose: 650 mg Al Hydroxide/Mg Hydroxide (Magnesium Hydrox/Alum Hydrox 30 Ml Oral.Susp) 30 ml PO Q6H PRN PRN Reason: Heartburn/Nausea Last Admin: 10/27/23 13:38 Dose: 30 ml Benztropine Mesylate (Benztropine Mesylate 1 Mg Tablet) 1 mg PO BID [facility] Last Admin: 11/03/23 09:41 Dose: 1 mg Cariprazine (Cariprazine Hcl 1.5 Mg Capsule) 4.5 mg PO DAILY [facility] Last Admin: 11/03/23 09:41 Dose: 4.5 mg Clonazepam (Clonazepam 1 Mg Tablet) 1 mg PO TID PRN PRN Reason: panic attack Last Admin: 11/03/23 10:19 Dose: 1 mg Gabapentin (Gabapentin 100 Mg Capsule) 100 mg PO TID [facility] Last Admin: 11/03/23 15:05 Dose: 100 mg Haloperidol (Haloperidol 1 Mg Tablet) 1 mg PO Q4H PRN PRN Reason: anxiety/agitation Last Admin: 11/03/23 10:40 Dose: 1 mg Haloperidol Decanoate (Haloperidol Decanoate 50 Mg/Ml Vial) 100 mg IM Q30D [facility] Hydroxyzine HCl (Hydroxyzine Hcl 25 Mg Tablet) 25 mg PO Q6H PRN PRN Reason: Anxiety Last Admin: 11/01/23 17:58 Dose: 25 mg Lamotrigine (Lamotrigine 25 Mg Tablet) 25 mg PO BEDTIME [facility] Last Admin: 11/02/23 21:39 Dose: 25 mg Levothyroxine Sodium (Levothyroxine Sodium 75 Mcg Tablet) 75 mcg PO DAILY@629 [facility] Last Admin: 11/03/23 06:16 Dose: 75 mcg Magnesium Hydroxide (Milk Of Magnesia 30 Ml Oral.Susp) 30 ml PO DAILY PRN PRN Reason: Constipation Last Admin: 11/03/23 05:11 Dose: 30 ml Omeprazole (Omeprazole 20 Mg Capsule.Dr) 20 mg PO DAILY@629 [facility] Last Admin: 11/03/23 09:41 Dose: 20 mg Trazodone HCl (Trazodone Hcl 50 Mg Tablet) 50 mg PO BEDTIME MRX1 PRN PRN Reason: Insomnia Last Admin: 10/30/23 21:14 Dose: 50 mg Vitamin D (Cholecalciferol (Vitamin D3) 25 Mcg Tablet) 25 mcg PO DAILY [facility] Last Admin: 11/03/23 09:41 Dose: 25 mcg Allergies Allergies Allergy/AdvReac Type Severity Reaction Status Date / Time aripiprazole Allergy Mild Unknown Verified 10/07/23 07:50 bupropion AdvReac Unknown Verified 10/07/23 07:50 divalproex sodium AdvReac Unknown Verified 10/07/23 07:50 [From Depakote] risperidone AdvReac Unknown Verified 10/07/23 07:50 Assessment & Plan Assessment & Plan (1) Bipolar 1 disorder, mixed: Status: Acute Code(s): F31.60 - Bipolar disorder, current episode mixed, unspecified Assessment and Plan: 11/01/23 discussed trying gabapentin, tried to review prior hx of this but seems like hx is archived or I couldn't figure out how to access it- (2) OCD (obsessive compulsive disorder): Qualifiers: Obsessive-compulsive disorder type: mixed obsessional thoughts and acts Qualified Code(s): F42.2 - Mixed obsessional thoughts and acts Status: Acute Code(s): F42.9 - Obsessive-compulsive disorder, unspecified (3) Abnormal EEG: Status: Acute Code(s): R94.01 - Abnormal electroencephalogram [EEG] Assessment and Plan: 47 years old woman who was admitted in hospital with severe depression. Previously she has reported some symptoms suggestive of complex partial seizures and had mildly abnormal EEG. At this time her presentation was different but I would suggest obtaining an EEG again. In addition, if a mood stabilizer is needed, I would recommend using lamotrigine, topiramate, or valproic acid. (4) History of electroconvulsive therapy: Status: Acute Code(s): Z98.890 - Other specified postprocedural states Assessment and Plan: Pt reports this didn't help her last time she tried Plan 47 yo woman with chronic Bipolar Disorder and OCD with severe anxiety and restlessness, intrusive behavior, ruminating and pacing in need of hospital treatment admitted on CV to [facility]. Impression/decision making: History of difficult to treat bipolar depression, OCD. Haldol has been helpful and pt will continue on it, but many other failed med trials including antipsychotics, mood stabilizers and SSRI's; ECT in past not helpful (maybe because hard to get good seizure since on benzos/depakote?). Pt started on Vraylar for bipolar depression and Lamictal for OCD (and depression/anxiety). Hospital course: 10/24: Neurology saw patient recommended repeat EEG. ?ECT. Clarify Depakote allergy. 10/26: Continue current management and treatment plan. Repeat EEG pending. telephone call to cousin Sayda and email to arrange a time to talk with her about medication reactions as pt does not recall; increase vraylar to 3mg daily 10/27 continue plan; waiting to hear back from Sayda re medication reaction but have the list of meds with which she had poor reactions. consider increase vraylar if needed and consider scheduled clonazepam; Sayda (cousin) reports pt has a referral to [facility] neurology already for after care but no appt yet. 10/28 Patient tearful, hard to express herself through emotions; saying that she is scared she will never get better, trying to push herself to go to groups... She is following staff's recommendations at behavioral activation however it is also causing her some stress as she can not tell how long she supposed to be out of her room, engaged with others feeling very unable to decide how much time she should be allowed to stay in her room by herself.... Weight Control Lecturer tried to talk this through with her but patient had a hard time discussing therapeutic approaches to to her emotionality. That said, patient feels somewhat improved since she 1st came in and said that she is feeling so-so in addition to being scared and anxious. She does say however that she is suffering which is apparent. Patient said that the last time she was hospitalized was in 2019 and when discharged, was overall feeling that she was doing pretty well. Discussed medication regimen and patient is not sure why medications were changed over these years but she agrees to get back on past regimen; also discussed ECT but patient can not remember if she thought this was helpful or not. Patient gave permission to talk to her provider, her cousin who is also her healthcare proxy. Per staff, covering provider, pt improved a little since admission: She is less tearful and no begging, getting on her knees with hands clapsed as she did on first day; -pt tolerating the vraylar which was increased to 3mg yesterday. pt remains tortured by worries, depression, indecisiveness...though a little less intensely so then on admission. Pt says it's very hard for her to do anything and she just wants to go lie in bed; however, she agrees to force herself to groups. Apologetically Rejects some activities recommended saying she's too anxious to attend. -cousin/HCP Sayda: gave hx -Says Haldol has historically worked the best; agrees with re-trial of Lamicta; continue w/ Vraylar -She voiced [facility] MRI concerns; continuity writer able to read impression which does refer to lesion Right Frontal lobe (not in meditech) 10/29 pt agrees she's doing a little better...says a little less anxious-maybe due to Vraylar; affect is more calm; agrees to continue -continues to feel depressed and struggles with both ocd-obsessional worries and indecisiveness (can't tolerate picking out menu, cloths...what to do w/ time). Agrees to restart Lamictal to help w/ OCD 10/31/23 CTP (started on vraylar and lamotrigine) 11/01/23 added gabapentin to see if more immediate effect- watch for sedation cortes combined with clonazepam- 11/01 still very anxious, paralyzed by indecision, depressed; increasing Vrayar 11/02 pt remains paralyzed by her worries, fearful, tearful; expresses frustration/shame at struggles making choices overwhelmed at thought of choosing cloths, food off the menu. discussed med management and pt agrees to try Trileptal to see if it can help w/ anxiety given that Lamictal takes a while to reach therapeutic dose. medication alone will not be enough to stabilize patient: -Team/OT discussed and created extensive behavioral/therapeutic CBT based plan which includes gradually increased tasks including picking foods off simplified menu, slowly adding choice of cloths... Plan CV Q 15 -working with OT for help with CBT -START Trileptal 150mg BID for anxiety; will titrate; not sure if will be helpful, but few options left to address anxiety as Vraylar/lamictal become theapeutic -continue Lamictal 25mg qhs -Continue Vraylar 4.5mg (discussed risk vs benefits and possible side effect; pt agrees to trial) -continue haldol dec (due November 10?) -look further into MRI impression -DC'd Prozac concern for bipolar disorder, dry mouth Neurology/EEG: Previously she has reported some symptoms suggestive of complex partial seizures and had mildly abnormal EEG. At this time her presentation was different but I would suggest obtaining an EEG again. In addition, if a mood stabilizer is needed, I would recommend using lamotrigine, topiramate, or valproic acid. Neurology consult 10/24 Dr. Ma, 47 years old woman admitted in hospital with severe depression and self-harm type of behavior. Couple of years ago she was admitted in hospital and reported episodes of her patel type of feeling going to her head lasting for seconds to minutes. At that time an EEG revealed left temporal sharp waves. CT scan and MRI of brain were okay. however, [facility] MRI concerns; continuity writer able to read impression from [facility] 09/17/23 which does refer to lesion Right Frontal lobe ([facility] will discuss with neuro Med trials: Haldol: worked the best ! Lamictal: did not seem to help, but...may have been too low a dose Fluvoxamine? not sure if helpful ECT: no help; memory loss Clozapine: did not tolerate frequent blood draws abilify: severe restlessness Risperdal: severe restlessness [place]aine: bed-wetting; not sure if helped Depakote: muscle cramps, restless... Latuda: TD Seroquel 50 mg Q 4 p.r.n. (makes aggressive) Nuedexta (Dextromethorphan /Quinidine) for uncontrollable crying/laughing Oxybutynin 10 mg Propranolol 20 mg t.i.d. hx: -Psych admission 2019 [place] [facility] for 1 year 2019- did ok, ups/downs; lots of med changes -Home with Cousin 2020-current: past 2.5 years overall good enough, lots of up/downs and med changes BETH and some trouble breathing? Seratonin Syndrom on some meds for depression? (not sure details) -Thinks recent decomp result of adding Paxil which caused high irritability/manic/obsessive and then Prozac which caused the same; since then, outpt provider trying to do a reset on meds... Says when at home w/ Cousin, ups/downs but was able to overall function at home with sufficient good enough periods where she'd go out and do activities (with help), put on makeup, enjoy things...Sayda reports constant medication changes making it difficult to know what meds worked or at least were partially helpful...wonders that during down times, it would be better to just wait it out rather than make med changes. Thinks recent decomp result of adding Paxil which caused high irritability/manic/obsessive and then Prozac which caused the same; since then, outpt provider trying to do a reset on meds.. Patient educated on: diagnosis, medication risk/benefits and therapeutic strategies Informed Consent: understands and further education needed Reason for continued inpatient stay Substantial Risk for: inability to function Time Spent With Patient Time: Total time managing care of this patient today ____ minutes.
[2023-11-03] MEDS: OXcarbazepine 150 MG TABLET PO ×2 (17:19→21:18)
[2023-11-03 20:12] VITALS: BP 124/80; PULSE 95; RESP 16; TEMP 36.8; O2SAT 100
[2023-11-03] MEDS: lamoTRIgine 25 MG TABLET PO (21:18)
[2023-11-04] MEDS: Levothyroxine Sodium 75 MCG TABLET PO (05:39)
[2023-11-04] MEDS: Omeprazole 20 MG CAPSULE.DR PO (05:39)
[2023-11-04 08:00] VITALS: BP 112/59; PULSE 71; RESP 18; TEMP 36.3; O2SAT 99
--- NOTE | 2023-11-04 09:10 | HO.PSYCHPN ---
Subjective Subjective Date of Service: 11/04/23 Reason For Visit: Bipolar Disorder Subjective Notes: Conditional Voluntary Interim History: Reviewed with Dr. Bryant. Pt presents anxious; during conversation pt started jumping up and down d/t panic. tearful. Pt reports feeling bad ; pt stated, I just want to lay in bed all day. They said I have to go to groups or I can't go home . keeping to self. showered. denies SI/HI/VH/AH. Medication Compliance: Yes Side effects from medications: No Attending Groups: Yes Review of Systems Constitutional: Reports as per HPI Eyes: Reports as per HPI Reports as per HPI Cardiovascular: Reports as per HPI Respiratory: Reports as per HPI Gastrointestinal: Reports as per HPI Genitourinary: Reports as per HPI Musculoskeletal: Reports as per HPI Skin/Breast: Reports as per HPI Reports as per HPI Psychiatric: Reports as per HPI Endocrine: Reports as per HPI Hematologic/Lymphatic: Reports as per HPI Allergic/Immunologic: Reports as per HPI Mental Status Exam Mental Status Exam Narrative: Pt is alert and oriented; behavior is anxious, restless; dressed in hospital attire; mood is described as bad ; eye contact appropriate; Speech is normal rate, volume and prosody and not pressured; thought process is organized; focused on discharged; denies SI/HI/VH/AH. Diagnostics Vital Signs (24Hr): Vital Signs - 24 hr 11/03/23 20:12 11/04/23 08:00 Temperature 98.2 F 97.3 F Pulse Rate 95 71 Respiratory Rate 16 18 Blood Pressure 124/80 112/59 L Pulse Oximetry 100 99 Oxygen Delivery Method Room Air Room Air BMI result Body Mass Index 32.5 Labs 10/20/23 20:19 10/20/23 20:19 Medications Medications Current Medications Acetaminophen (Acetaminophen 325 Mg Tablet) 650 mg PO Q6H PRN PRN Reason: Headache/Pain Mild Scale (1-3) Last Admin: 11/01/23 17:58 Dose: 650 mg Al Hydroxide/Mg Hydroxide (Magnesium Hydrox/Alum Hydrox 30 Ml Oral.Susp) 30 ml PO Q6H PRN PRN Reason: Heartburn/Nausea Last Admin: 10/27/23 13:38 Dose: 30 ml Benztropine Mesylate (Benztropine Mesylate 1 Mg Tablet) 1 mg PO BID [place] Last Admin: 03/05/24 21:18 Dose: 1 mg Cariprazine (Cariprazine Hcl 1.5 Mg Capsule) 4.5 mg PO DAILY [facility] Last Admin: 11/03/23 09:41 Dose: 4.5 mg Clonazepam (Clonazepam 1 Mg Tablet) 1 mg PO TID PRN PRN Reason: panic attack Last Admin: 11/03/23 10:19 Dose: 1 mg Gabapentin (Gabapentin 100 Mg Capsule) 100 mg PO TID [facility] Last Admin: 11/03/23 21:18 Dose: 100 mg Haloperidol (Haloperidol 1 Mg Tablet) 1 mg PO Q4H PRN PRN Reason: anxiety/agitation Last Admin: 11/03/23 10:40 Dose: 1 mg Haloperidol Decanoate (Haloperidol Decanoate 50 Mg/Ml Vial) 100 mg IM Q30D [facility] Hydroxyzine HCl (Hydroxyzine Hcl 25 Mg Tablet) 25 mg PO Q6H PRN PRN Reason: Anxiety Last Admin: 11/01/23 17:58 Dose: 25 mg Lamotrigine (Lamotrigine 25 Mg Tablet) 25 mg PO BEDTIME [facility] Last Admin: 11/03/23 21:18 Dose: 25 mg Levothyroxine Sodium (Levothyroxine Sodium 75 Mcg Tablet) 75 mcg PO DAILY@0630 [facility] Last Admin: 11/04/23 05:39 Dose: 75 mcg Magnesium Hydroxide (Milk Of Magnesia 30 Ml Oral.Susp) 30 ml PO DAILY PRN PRN Reason: Constipation Last Admin: 11/03/23 05:11 Dose: 30 ml Omeprazole (Omeprazole 20 Mg Capsule.Dr) 20 mg PO DAILY@0630 [facility] Last Admin: 11/04/23 05:39 Dose: 20 mg Oxcarbazepine (Oxcarbazepine 150 Mg Tablet) 150 mg PO BID [facility] Last Admin: 11/03/23 21:18 Dose: 150 mg Trazodone HCl (Trazodone Hcl 50 Mg Tablet) 50 mg PO BEDTIME MRX1 PRN PRN Reason: Insomnia Last Admin: 10/30/23 21:14 Dose: 50 mg Vitamin D (Cholecalciferol (Vitamin D3) 25 Mcg Tablet) 25 mcg PO DAILY [facility] Last Admin: 11/03/23 09:41 Dose: 25 mcg Allergies Allergies Allergy/AdvReac Type Severity Reaction Status Date / Time aripiprazole Allergy Mild Unknown Verified 10/07/23 07:50 bupropion AdvReac Unknown Verified 10/07/23 07:50 divalproex sodium AdvReac Unknown Verified 10/07/23 07:50 [From Depakote] risperidone AdvReac Unknown Verified 10/07/23 07:50 Assessment & Plan Assessment & Plan (1) Bipolar 1 disorder, mixed: Status: Acute Code(s): F31.60 - Bipolar disorder, current episode mixed, unspecified Assessment and Plan: 11/01/23 discussed trying gabapentin, tried to review prior hx of this but seems like hx is archived or I couldn't figure out how to access it- (2) OCD (obsessive compulsive disorder): Qualifiers: Obsessive-compulsive disorder type: mixed obsessional thoughts and acts Qualified Code(s): F42.2 - Mixed obsessional thoughts and acts Status: Acute Code(s): F42.9 - Obsessive-compulsive disorder, unspecified (3) Abnormal EEG: Status: Acute Code(s): R94.01 - Abnormal electroencephalogram [EEG] Assessment and Plan: 47 years old woman who was admitted in hospital with severe depression. Previously she has reported some symptoms suggestive of complex partial seizures and had mildly abnormal EEG. At this time her presentation was different but I would suggest obtaining an EEG again. In addition, if a mood stabilizer is needed, I would recommend using lamotrigine, topiramate, or valproic acid. (4) History of electroconvulsive therapy: Status: Acute Code(s): Z98.890 - Other specified postprocedural states Assessment and Plan: Pt reports this didn't help her last time she tried Plan 47 yo woman with chronic Bipolar Disorder and OCD with severe anxiety and restlessness, intrusive behavior, ruminating and pacing in need of hospital treatment admitted on CV to [facility]. Impression/decision making: History of difficult to treat bipolar depression, OCD. Haldol has been helpful and pt will continue on it, but many other failed med trials including antipsychotics, mood stabilizers and SSRI's; ECT in past not helpful (maybe because hard to get good seizure since on benzos/depakote?). Pt started on Vraylar for bipolar depression and Lamictal for OCD (and depression/anxiety). Hospital course: 10/24: Neurology saw patient recommended repeat EEG. ?ECT. Clarify Depakote allergy. 10/26: Continue current management and treatment plan. Repeat EEG pending. telephone call to cousin Sayda and email to arrange a time to talk with her about medication reactions as pt does not recall; increase vraylar to 3mg daily 10/27 continue plan; waiting to hear back from Sayda re medication reaction but have the list of meds with which she had poor reactions. consider increase vraylar if needed and consider scheduled clonazepam; Sayda (cousin) reports pt has a referral to [facility] neurology already for after care but no appt yet. 10/28 Patient tearful, hard to express herself through emotions; saying that she is scared she will never get better, trying to push herself to go to groups... She is following staff's recommendations at behavioral activation however it is also causing her some stress as she can not tell how long she supposed to be out of her room, engaged with others feeling very unable to decide how much time she should be allowed to stay in her room by herself.... Ict Development Manager tried to talk this through with her but patient had a hard time discussing therapeutic approaches to to her emotionality. That said, patient feels somewhat improved since she 1st came in and said that she is feeling so-so in addition to being scared and anxious. She does say however that she is suffering which is apparent. Patient said that the last time she was hospitalized was in 2019 and when discharged, was overall feeling that she was doing pretty well. Discussed medication regimen and patient is not sure why medications were changed over these years but she agrees to get back on past regimen; also discussed ECT but patient can not remember if she thought this was helpful or not. Patient gave permission to talk to her provider, her cousin who is also her healthcare proxy. Per staff, covering provider, pt improved a little since admission: She is less tearful and no begging, getting on her knees with hands clapsed as she did on first day; -pt tolerating the vraylar which was increased to 3mg yesterday. pt remains tortured by worries, depression, indecisiveness...though a little less intensely so then on admission. Pt says it's very hard for her to do anything and she just wants to go lie in bed; however, she agrees to force herself to groups. Apologetically Rejects some activities recommended saying she's too anxious to attend. -cousin/HCP Sayda: gave hx -Says Haldol has historically worked the best; agrees with re-trial of Lamicta; continue w/ Vraylar -She voiced [facility] MRI concerns; policy writer typist able to read impression which does refer to lesion Right Frontal lobe (not in meditech) 10/29 pt agrees she's doing a little better...says a little less anxious-maybe due to Vraylar; affect is more calm; agrees to continue -continues to feel depressed and struggles with both ocd-obsessional worries and indecisiveness (can't tolerate picking out menu, cloths...what to do w/ time). Agrees to restart Lamictal to help w/ OCD 10/31/23 CTP (started on vraylar and lamotrigine) 11/01/23 added gabapentin to see if more immediate effect- watch for sedation cortes combined with clonazepam- 11/01 still very anxious, paralyzed by indecision, depressed; increasing Vrayar 11/02 pt remains paralyzed by her worries, fearful, tearful; expresses frustration/shame at struggles making choices overwhelmed at thought of choosing cloths, food off the menu. discussed med management and pt agrees to try Trileptal to see if it can help w/ anxiety given that Lamictal takes a while to reach therapeutic dose. medication alone will not be enough to stabilize patient: -Team/OT discussed and created extensive behavioral/therapeutic CBT based plan which includes gradually increased tasks including picking foods off simplified menu, slowly adding choice of cloths... 11/03: continue current tx plan. Plan CV Q 15 -working with OT for help with CBT -START Trileptal 150mg BID for anxiety; will titrate; not sure if will be helpful, but few options left to address anxiety as Vraylar/lamictal become theapeutic -continue Lamictal 25mg qhs -Continue Vraylar 4.5mg (discussed risk vs benefits and possible side effect; pt agrees to trial) -continue haldol dec (due November 10?) -look further into MRI impression -DC'd Prozac concern for bipolar disorder, dry mouth Neurology/EEG: Previously she has reported some symptoms suggestive of complex partial seizures and had mildly abnormal EEG. At this time her presentation was different but I would suggest obtaining an EEG again. In addition, if a mood stabilizer is needed, I would recommend using lamotrigine, topiramate, or valproic acid. Neurology consult 10/24 Dr. Ma, 47 years old woman admitted in hospital with severe depression and self-harm type of behavior. Couple of years ago she was admitted in hospital and reported episodes of her patel type of feeling going to her head lasting for seconds to minutes. At that time an EEG revealed left temporal sharp waves. CT scan and MRI of brain were okay. however, [facility] MRI concerns; policy writer typist able to read impression from [facility] 09/17/23 which does refer to lesion Right Frontal lobe ([facility]); will discuss with neuro Med trials: Haldol: worked the best ! Lamictal: did not seem to help, but...may have been too low a dose Fluvoxamine? not sure if helpful ECT: no help; memory loss Clozapine: did not tolerate frequent blood draws abilify: severe restlessness Risperdal: severe restlessness [place]: bed-wetting; not sure if helped Depakote: muscle cramps, restless... Latuda: TD Seroquel 50 mg Q 4 p.r.n. (makes aggressive) Nuedexta (Dextromethorphan /Quinidine) for uncontrollable crying/laughing Oxybutynin 10 mg Propranolol 20 mg t.i.d. hx: -Psych admission 2019 [place] -[facility] for 1 year 2019- did ok, ups/downs; lots of med changes -Home with Cousin 2020-current: past 2.5 years overall good enough, lots of up/downs and med changes BETH and some trouble breathing? Seratonin Syndrom on some meds for depression? (not sure details) -Thinks recent decomp result of adding Paxil which caused high irritability/manic/obsessive and then Prozac which caused the same; since then, outpt provider trying to do a reset on meds... Says when at home w/ Cousin, ups/downs but was able to overall function at home with sufficient good enough periods where she'd go out and do activities (with help), put on makeup, enjoy things...Sayda reports constant medication changes making it difficult to know what meds worked or at least were partially helpful...wonders that during down times, it would be better to just wait it out rather than make med changes. Thinks recent decomp result of adding Paxil which caused high irritability/manic/obsessive and then Prozac which caused the same; since then, outpt provider trying to do a reset on meds.. Patient educated on: diagnosis, medication risk/benefits and therapeutic strategies Informed Consent: understands Reason for continued inpatient stay Substantial Risk for: med/psych decompensation Time Spent With Patient Time: Total time managing care of this patient today _20___ minutes.
[2023-11-04] MEDS: OXcarbazepine 150 MG TABLET PO ×2 (09:29→21:42)
[2023-11-04] MEDS: Cholecalciferol (Vitamin D3) 25 MCG TABLET PO (09:29)
[2023-11-04] MEDS: Gabapentin 100 MG CAPSULE PO ×3 (09:30→21:42)
[2023-11-04] MEDS: Benztropine Mesylate 1 MG TABLET PO ×2 (09:30→21:41)
[2023-11-04] MEDS: Cariprazine HCl 1.5 MG CAPSULE 4.5 MG PO (09:32)
[2023-11-04] MEDS: HaloperidoL 1 MG TABLET PO (11:38)
[2023-11-04] MEDS: clonazePAM 1 MG TABLET PO (11:38)
[2023-11-04 16:20] VITALS: BP 111/67; PULSE 95; TEMP 36.6
[2023-11-04] MEDS: Acetaminophen 325 MG TABLET 650 MG PO (20:39)
[2023-11-04] MEDS: lamoTRIgine 25 MG TABLET PO (21:41)
[2023-11-05] MEDS: Levothyroxine Sodium 75 MCG TABLET PO (05:01)
[2023-11-05] MEDS: Omeprazole 20 MG CAPSULE.DR PO (05:01)
[2023-11-05 07:00] VITALS: BMI 32.6
[2023-11-05 07:30] VITALS: BP 126/81; PULSE 82; RESP 15; TEMP 36.3; O2SAT 99
[2023-11-05] MEDS: OXcarbazepine 150 MG TABLET PO (08:42)
[2023-11-05] MEDS: Benztropine Mesylate 1 MG TABLET PO ×2 (08:43→19:46)
[2023-11-05] MEDS: Gabapentin 100 MG CAPSULE PO (08:43)
[2023-11-05] MEDS: Cholecalciferol (Vitamin D3) 25 MCG TABLET PO (08:43)
[2023-11-05] MEDS: Cariprazine HCl 1.5 MG CAPSULE 4.5 MG PO (08:43)
--- NOTE | 2023-11-05 10:07 | P.PNPSI_ITS ---
Subjective Subjective Date of Service: 11/05/23 Reason For Visit: Bipolar Disorder Interim History: met with patient; discussed with team; reviewed chart severely anxious; breaking down in tears from anxiety, jumping up and down and expressing self-loathing, walking halls crying from anxiety...with extensive support from OT able to dress herself in regular casual cloths but cannot stop worrying about changing them tomorrow. Regarding stress over clothing choice, pt cannot say why she feels so anxious about it. Berrates self saying she's lazy... Mental Status Exam Mental Status Exam Narrative: Pt is alert and oriented; behavior tearful, anxious, emotionally distressed, isolating, but cooperative;dressed in casual attire with good hygiene; mood is described as not good and affect anxious on verge of panic, tearful, downcast; eye contact appropriate; Speech is normal rate, volume and prosody and not pressured; both psychomotor agitation intermittently present; thought process is organized and goal directed; Thought content is on fearfulness, anxiety, hopelessness over getting better; tx; otherwise pertinent to relevant topics and without any delusional content, paranoid ideations or grandiosity; denies any SI/HI. There is no evidence of perceptual disturbance. Patients insight and judgment impaired Diagnostics Vital Signs (24Hr): Vital Signs - 24 hr 11/04/23 16:20 11/05/23 07:30 Temperature 97.8 F 97.3 F Pulse Rate 95 82 Respiratory Rate 15 Blood Pressure 111/67 126/81 Pulse Oximetry 99 Oxygen Delivery Method Room Air BMI result Body Mass Index 32.5 Labs 10/20/23 20:19 10/20/23 20:19 Medications Medications Current Medications Acetaminophen (Acetaminophen 325 Mg Tablet) 650 mg PO Q6H PRN PRN Reason: Headache/Pain Mild Scale (1-3) Last Admin: 11/04/23 20:39 Dose: 650 mg Al Hydroxide/Mg Hydroxide (Magnesium Hydrox/Alum Hydrox 30 Ml Oral.Susp) 30 ml PO Q6H PRN PRN Reason: Heartburn/Nausea Last Admin: 10/27/23 13:38 Dose: 30 ml Benztropine Mesylate (Benztropine Mesylate 1 Mg Tablet) 1 mg PO BID [place] Last Admin: 11/05/23 08:43 Dose: 1 mg Cariprazine (Cariprazine Hcl 1.5 Mg Capsule) 4.5 mg PO DAILY [facility] Last Admin: 11/05/23 08:43 Dose: 4.5 mg Clonazepam (Clonazepam 1 Mg Tablet) 1 mg PO TID PRN PRN Reason: panic attack Last Admin: 11/04/23 11:38 Dose: 1 mg Gabapentin (Gabapentin 100 Mg Capsule) 100 mg PO TID [facility] Last Admin: 11/05/23 08:43 Dose: 100 mg Haloperidol (Haloperidol 1 Mg Tablet) 1 mg PO Q4H PRN PRN Reason: anxiety/agitation Last Admin: 11/04/23 11:38 Dose: 1 mg Haloperidol Decanoate (Haloperidol Decanoate 50 Mg/Ml Vial) 100 mg IM Q30D [facility] Hydroxyzine HCl (Hydroxyzine Hcl 25 Mg Tablet) 25 mg PO Q6H PRN PRN Reason: Anxiety Last Admin: 11/01/23 17:58 Dose: 25 mg Lamotrigine (Lamotrigine 25 Mg Tablet) 25 mg PO BEDTIME [facility] Last Admin: 11/04/23 21:41 Dose: 25 mg Levothyroxine Sodium (Levothyroxine Sodium 75 Mcg Tablet) 75 mcg PO DAILY@629 [facility] Last Admin: 11/05/23 05:01 Dose: 75 mcg Magnesium Hydroxide (Milk Of Magnesia 30 Ml Oral.Susp) 30 ml PO DAILY PRN PRN Reason: Constipation Last Admin: 11/03/23 05:11 Dose: 30 ml Omeprazole (Omeprazole 20 Mg Capsule.Dr) 20 mg PO DAILY@629 [facility] Last Admin: 11/05/23 05:01 Dose: 20 mg Oxcarbazepine (Oxcarbazepine 150 Mg Tablet) 150 mg PO BID [facility] Last Admin: 11/05/23 08:42 Dose: 150 mg Trazodone HCl (Trazodone Hcl 50 Mg Tablet) 50 mg PO BEDTIME MRX1 PRN PRN Reason: Insomnia Last Admin: 10/30/23 21:14 Dose: 50 mg Vitamin D (Cholecalciferol (Vitamin D3) 25 Mcg Tablet) 25 mcg PO DAILY [facility] Last Admin: 11/05/23 08:43 Dose: 25 mcg Allergies Allergies Allergy/AdvReac Type Severity Reaction Status Date / Time aripiprazole Allergy Mild Unknown Verified 10/07/23 07:50 bupropion AdvReac Unknown Verified 10/07/23 07:50 divalproex sodium AdvReac Unknown Verified 10/07/23 07:50 [From Depakote] risperidone AdvReac Unknown Verified 10/07/23 07:50 Assessment & Plan Assessment & Plan (1) Bipolar 1 disorder, mixed: Status: Acute Code(s): F31.60 - Bipolar disorder, current episode mixed, unspecified Assessment and Plan: 11/01/23 discussed trying gabapentin, tried to review prior hx of this but seems like hx is archived or I couldn't figure out how to access it- (2) OCD (obsessive compulsive disorder): Qualifiers: Obsessive-compulsive disorder type: mixed obsessional thoughts and acts Qualified Code(s): F42.2 - Mixed obsessional thoughts and acts Status: Acute Code(s): F42.9 - Obsessive-compulsive disorder, unspecified (3) Abnormal EEG: Status: Acute Code(s): R94.01 - Abnormal electroencephalogram [EEG] Assessment and Plan: 47 years old woman who was admitted in hospital with severe depression. Previously she has reported some symptoms suggestive of complex partial seizures and had mildly abnormal EEG. At this time her presentation was different but I would suggest obtaining an EEG again. In addition, if a mood stabilizer is needed, I would recommend using lamotrigine, topiramate, or valproic acid. (4) History of electroconvulsive therapy: Status: Acute Code(s): Z98.890 - Other specified postprocedural states Assessment and Plan: Pt reports this didn't help her last time she tried Plan 47 yo woman with chronic Bipolar Disorder and OCD with severe anxiety and restlessness, intrusive behavior, ruminating and pacing in need of hospital treatment admitted on CV to [facility]. Impression/decision making: History of difficult to treat bipolar depression, OCD. Haldol has been helpful and pt will continue on it, but many other failed med trials including antipsychotics, mood stabilizers and SSRI's; ECT in past not helpful (maybe because hard to get good seizure since on benzos/depakote?). Pt started on Vraylar for bipolar depression and Lamictal for OCD (and depression/anxiety). Hospital course: 10/24: Neurology saw patient recommended repeat EEG. ?ECT. Clarify Depakote allergy. 10/26: Continue current management and treatment plan. Repeat EEG pending. telephone call to adrien Alfredo and email to arrange a time to talk with her about medication reactions as pt does not recall; increase vraylar to 3mg daily 10/27 continue plan; waiting to hear back from Sayda re medication reaction but have the list of meds with which she had poor reactions. consider increase vraylar if needed and consider scheduled clonazepam; Sayda (cousin) reports pt has a referral to [facility] neurology already for after care but no appt yet. 10/28 Patient tearful, hard to express herself through emotions; saying that she is scared she will never get better, trying to push herself to go to groups... She is following staff's recommendations at behavioral activation however it is also causing her some stress as she can not tell how long she supposed to be out of her room, engaged with others feeling very unable to decide how much time she should be allowed to stay in her room by herself.... Room Cooler Installer tried to talk this through with her but patient had a hard time discussing therapeutic approaches to to her emotionality. That said, patient feels somewhat improved since she 1st came in and said that she is feeling so-so in addition to being scared and anxious. She does say however that she is suffering which is apparent. Patient said that the last time she was hospitalized was in 2019 and when discharged, was overall feeling that she was doing pretty well. Discussed medication regimen and patient is not sure why medications were changed over these years but she agrees to get back on past regimen; also discussed ECT but patient can not remember if she thought this was helpful or not. Patient gave permission to talk to her provider, her cousin who is also her healthcare proxy. Per staff, covering provider, pt improved a little since admission: She is less tearful and no begging, getting on her knees with hands clapsed as she did on first day; -pt tolerating the vraylar which was increased to 3mg yesterday. pt remains tortured by worries, depression, indecisiveness...though a little less intensely so then on admission. Pt says it's very hard for her to do anything and she just wants to go lie in bed; however, she agrees to force herself to groups. Apologetically Rejects some activities recommended saying she's too anxious to attend. -cousin/HCP Sayda: gave hx -Says Haldol has historically worked the best; agrees with re-trial of Lamicta; continue w/ Vraylar -She voiced [facility] MRI concerns; health technical writer able to read impression which does refer to lesion Right Frontal lobe (not in [facility]) 10/29 pt agrees she's doing a little better...says a little less anxious-maybe due to Vraylar; affect is more calm; agrees to continue -continues to feel depressed and struggles with both ocd-obsessional worries and indecisiveness (can't tolerate picking out menu, cloths...what to do w/ time). Agrees to restart Lamictal to help w/ OCD 10/31/23 CTP (started on vraylar and lamotrigine) 11/01/23 added gabapentin to see if more immediate effect- watch for sedation cortes combined with clonazepam- 11/01 still very anxious, paralyzed by indecision, depressed; increasing Vrayar 11/02 pt remains paralyzed by her worries, fearful, tearful; expresses frustration/shame at struggles making choices overwhelmed at thought of choosing cloths, food off the menu. discussed med management and pt agrees to try Trileptal to see if it can help w/ anxiety given that Lamictal takes a while to reach therapeutic dose. medication alone will not be enough to stabilize patient: -Team/OT discussed and created extensive behavioral/therapeutic CBT based plan which includes gradually increased tasks including picking foods off simplified menu, slowly adding choice of cloths... 11/03: continue current tx plan. 11/04 remains very anixous, paralyzed by OCD symptoms rendering unable to make decisions w/out extreme stress and anxiety; seems that Thorazine prn has lowered a little anxiety so will add to regimen. Pt now on 3 antipsychotics; she is miserable, suffering and tying to find regimen that works; will aim to eliminate one antipsychotic but for time being trying to get pt relief from overwhelming anxiety. Increasing Trileptal to 300mg BID. Not sure that Vraylar is helping but will keep for now. Plan CV Q 15 ADDed Thorazine 75mg qid prn for anxiety/agitation (will dc haldol prn and hydroxyzine prn since not helping) -increased gabapentin to 300mg TId to see if can help with anxiety (started for foot pain, however, pain is new, from walking halls) -working with OT for help with CBT -increase to Trileptal 300mg BID for anxiety; will titrate; not sure if will be helpful, but few options left to address anxiety as Vraylar/lamictal become theapeutic -continue Lamictal 25mg qhs -Continue Vraylar 4.5mg (discussed risk vs benefits and possible side effect; pt agrees to trial) -continue haldol dec (due November 10?) -look further into MRI impression -DC'd Prozac concern for bipolar disorder, dry mouth Neurology/EEG: Previously she has reported some symptoms suggestive of complex partial seizures and had mildly abnormal EEG. At this time her presentation was different but I would suggest obtaining an EEG again. In addition, if a mood stabilizer is needed, I would recommend using lamotrigine, topiramate, or valproic acid. Neurology consult 10/24 Dr. Ma, 47 years old woman admitted in hospital with severe depression and self-harm type of behavior. Couple of years ago she was admitted in hospital and reported episodes of her patel type of feeling going to her head lasting for seconds to minutes. At that time an EEG revealed left temporal sharp waves. CT scan and MRI of brain were okay. however, [facility] MRI concerns; health technical writer able to read impression from [facility] 09/17/23 which does refer to lesion Right Frontal lobe (not in [facility]); will discuss with neuro Med trials: Haldol: worked the best ! Lamictal: did not seem to help, but...may have been too low a dose Fluvoxamine? not sure if helpful ECT: no help; memory loss Clozapine: did not tolerate frequent blood draws abilify: severe restlessness Risperdal: severe restlessness [place]: bed-wetting; not sure if helped Depakote: muscle cramps, restless... Latuda: TD Seroquel 50 mg Q 4 p.r.n. (makes aggressive) Nuedexta (Dextromethorphan /Quinidine) for uncontrollable crying/laughing Oxybutynin 10 mg Propranolol 20 mg t.i.d. hx: -Psych admission 2019 [place] -[facility] for 1 year 2019- did ok, ups/downs; lots of med changes -Home with Cousin 2020-current: past 2.5 years overall good enough, lots of up/downs and med changes BETH and some trouble breathing? Seratonin Syndrom on some meds for depression? (not sure details) -Thinks recent decomp result of adding Paxil which caused high irritability/manic/obsessive and then Prozac which caused the same; since then, outpt provider trying to do a reset on meds... Says when at home w/ Cousin, ups/downs but was able to overall function at home with sufficient good enough periods where she'd go out and do activities (with help), put on makeup, enjoy things...Sayda reports constant medication changes making it difficult to know what meds worked or at least were partially helpful...wonders that during down times, it would be better to just wait it out rather than make med changes. Thinks recent decomp result of adding Paxil which caused high irritability/manic/obsessive and then Prozac which caused the same; since then, outpt provider trying to do a reset on meds.. Patient educated on: diagnosis, medication risk/benefits and therapeutic strategies Informed Consent: understands Reason for continued inpatient stay Substantial Risk for: inability to function Time Spent With Patient Time: Total time managing care of this patient today ____ minutes.
[2023-11-05 16:00] VITALS: BP 120/74; PULSE 82; RESP 15; TEMP 36.7; O2SAT 97
[2023-11-05] MEDS: chlorproMAZINE HCl 25 MG TABLET 50 MG PO ×2 (17:11→18:33)
[2023-11-05] MEDS: Acetaminophen 325 MG TABLET 650 MG PO (19:46)
[2023-11-05] MEDS: OXcarbazepine 300 MG TABLET PO (19:47)
[2023-11-05] MEDS: Gabapentin 300 MG CAPSULE PO (19:47)
[2023-11-05] MEDS: lamoTRIgine 25 MG TABLET PO (19:47)
[2023-11-05] MEDS: clonazePAM 1 MG TABLET PO (19:47)
[2023-11-05] MEDS: traZODone HCL 50 MG TABLET PO (19:47)
[2023-11-06] MEDS: Levothyroxine Sodium 75 MCG TABLET PO (06:07)
[2023-11-06] MEDS: Omeprazole 20 MG CAPSULE.DR PO (06:07)
[2023-11-06 08:07] VITALS: BP 112/80; PULSE 96; RESP 18; TEMP 36.5; O2SAT 100
[2023-11-06] MEDS: OXcarbazepine 300 MG TABLET PO ×3 (09:02→21:48)
[2023-11-06] MEDS: Cariprazine HCl 1.5 MG CAPSULE 4.5 MG PO (09:02)
[2023-11-06] MEDS: Gabapentin 300 MG CAPSULE PO ×3 (09:03→21:47)
[2023-11-06] MEDS: Cholecalciferol (Vitamin D3) 25 MCG TABLET PO (09:03)
[2023-11-06] MEDS: Benztropine Mesylate 1 MG TABLET PO ×2 (09:03→21:47)
--- NOTE | 2023-11-06 09:39 | P.PNPSI_ITS ---
Subjective Subjective Date of Service: 11/06/23 Reason For Visit: Bipolar Disorder Interim History: met with patient; discussed with team Patient remains severely disabled by anxiety, walking up and down the callejas in tears, talking about how she is afraid. Patient benefited from Thorazine 75 mg which did reduce her anxiety considerably though only temporarily. Continued to discuss working on behavioral plan, pushing self to do certain activities; patient able to agree that while numerous tasks are very difficult and tremendously anxiety provoking for her, she is able to complete them Discussed case with Dr. Bryant who treated patient in the past though her symptoms were similarly very difficult to treat, he thought she improved on combination of clozapine, Haldol, Depakote and propranolol. Also agreed with titrating Trileptal for anxiety and which is used in some cases for carrol. Clozaril and Depakote or currently on hold, given some side effects and inconvenience; propranolol as an option. Mental Status Exam Mental Status Exam Narrative: Pt is alert and oriented; behavior tearful, anxious, emotionally distressed, isolating, but cooperative;dressed in casual attire with good hygiene; mood is described as not good and affect anxious on verge of panic, tearful, downcast; eye contact appropriate; Speech is normal rate, volume and prosody and not pressured; both psychomotor agitation intermittently present; thought process is organized and goal directed; Thought content is on fearfulness, anxiety, hopelessness over getting better; tx; otherwise pertinent to relevant topics and without any delusional content, paranoid ideations or grandiosity; denies any SI/HI. There is no evidence of perceptual disturbance. Patients insight and judgment impaired Diagnostics Vital Signs (24Hr): Vital Signs - 24 hr 11/05/23 16:00 11/06/23 08:07 Temperature 98.1 F 97.7 F Pulse Rate 82 96 Respiratory Rate 15 18 Blood Pressure 120/74 112/80 Pulse Oximetry 97 100 Oxygen Delivery Method Room Air Room Air BMI result Body Mass Index 32.6 Labs 10/20/23 20:19 10/20/23 20:19 Medications Medications Current Medications Acetaminophen (Acetaminophen 325 Mg Tablet) 650 mg PO Q6H PRN PRN Reason: Headache/Pain Mild Scale (1-3) Last Admin: 11/05/23 19:46 Dose: 650 mg Al Hydroxide/Mg Hydroxide (Magnesium Hydrox/Alum Hydrox 30 Ml Oral.Susp) 30 ml PO Q6H PRN PRN Reason: Heartburn/Nausea Last Admin: 10/27/23 13:38 Dose: 30 ml Benztropine Mesylate (Benztropine Mesylate 1 Mg Tablet) 1 mg PO BID [facility] Last Admin: 11/06/23 09:03 Dose: 1 mg Cariprazine (Cariprazine Hcl 1.5 Mg Capsule) 4.5 mg PO DAILY [facility] Last Admin: 11/06/23 09:02 Dose: 4.5 mg Chlorpromazine HCl (Chlorpromazine Hcl 25 Mg Tablet) 75 mg PO QID PRN PRN Reason: anxiety/agitation Clonazepam (Clonazepam 1 Mg Tablet) 1 mg PO TID PRN PRN Reason: panic attack Last Admin: 11/05/23 19:47 Dose: 1 mg Gabapentin (Gabapentin 300 Mg Capsule) 300 mg PO TID [facility] Last Admin: 11/06/23 09:03 Dose: 300 mg Haloperidol Decanoate (Haloperidol Decanoate 50 Mg/Ml Vial) 100 mg IM Q30D [facility] Lamotrigine (Lamotrigine 25 Mg Tablet) 25 mg PO BEDTIME [facility] Last Admin: 11/05/23 19:47 Dose: 25 mg Levothyroxine Sodium (Levothyroxine Sodium 75 Mcg Tablet) 75 mcg PO DAILY@629 [facility] Last Admin: 11/06/23 06:07 Dose: 75 mcg Magnesium Hydroxide (Milk Of Magnesia 30 Ml Oral.Susp) 30 ml PO DAILY PRN PRN Reason: Constipation Last Admin: 11/03/23 05:11 Dose: 30 ml Omeprazole (Omeprazole 20 Mg Capsule.Dr) 20 mg PO DAILY@629 [facility] Last Admin: 11/06/23 06:07 Dose: 20 mg Oxcarbazepine (Oxcarbazepine 300 Mg Tablet) 300 mg PO BID [facility] Last Admin: 11/06/23 09:02 Dose: 300 mg Trazodone HCl (Trazodone Hcl 50 Mg Tablet) 50 mg PO BEDTIME MRX1 PRN PRN Reason: Insomnia Last Admin: 11/05/23 19:47 Dose: 50 mg Vitamin D (Cholecalciferol (Vitamin D3) 25 Mcg Tablet) 25 mcg PO DAILY [facility] Last Admin: 11/06/23 09:03 Dose: 25 mcg Allergies Allergies Allergy/AdvReac Type Severity Reaction Status Date / Time aripiprazole Allergy Mild Unknown Verified 10/07/23 07:50 bupropion AdvReac Unknown Verified 10/07/23 07:50 divalproex sodium AdvReac Unknown Verified 10/07/23 07:50 [From Depakote] risperidone AdvReac Unknown Verified 10/07/23 07:50 Assessment & Plan Assessment & Plan (1) Bipolar 1 disorder, mixed: Status: Acute Code(s): F31.60 - Bipolar disorder, current episode mixed, unspecified Assessment and Plan: 11/01/23 discussed trying gabapentin, tried to review prior hx of this but seems like hx is archived or I couldn't figure out how to access it- (2) OCD (obsessive compulsive disorder): Qualifiers: Obsessive-compulsive disorder type: mixed obsessional thoughts and acts Qualified Code(s): F42.2 - Mixed obsessional thoughts and acts Status: Acute Code(s): F42.9 - Obsessive-compulsive disorder, unspecified (3) Abnormal EEG: Status: Acute Code(s): R94.01 - Abnormal electroencephalogram [EEG] Assessment and Plan: 47 years old woman who was admitted in hospital with severe depression. Previously she has reported some symptoms suggestive of complex partial seizures and had mildly abnormal EEG. At this time her presentation was different but I would suggest obtaining an EEG again. In addition, if a mood stabilizer is needed, I would recommend using lamotrigine, topiramate, or valproic acid. (4) History of electroconvulsive therapy: Status: Acute Code(s): Z98.890 - Other specified postprocedural states Assessment and Plan: Pt reports this didn't help her last time she tried Plan 47 yo woman with chronic Bipolar Disorder and OCD with severe anxiety and restlessness, intrusive behavior, ruminating and pacing in need of hospital treatment admitted on CV to [facility]. Impression/decision making: History of difficult to treat bipolar depression, OCD. Haldol has been helpful and pt will continue on it, but many other failed med trials including antipsychotics, mood stabilizers and SSRI's; ECT in past not helpful (maybe because hard to get good seizure since on benzos/depakote?). Pt started on Vraylar for bipolar depression and Lamictal for OCD (and depression/anxiety). Hospital course: 10/24: Neurology saw patient recommended repeat EEG. ?ECT. Clarify Depakote allergy. 10/26: Continue current management and treatment plan. Repeat EEG pending. telephone call to cousin Sayda and email to arrange a time to talk with her about medication reactions as pt does not recall; increase vraylar to 3mg daily 10/27 continue plan; waiting to hear back from Sayda re medication reaction but have the list of meds with which she had poor reactions. consider increase vraylar if needed and consider scheduled clonazepam; Sayda (cousin) reports pt has a referral to [facility] neurology already for after care but no appt yet. 10/28 Patient tearful, hard to express herself through emotions; saying that she is scared she will never get better, trying to push herself to go to groups... She is following staff's recommendations at behavioral activation however it is also causing her some stress as she can not tell how long she supposed to be out of her room, engaged with others feeling very unable to decide how much time she should be allowed to stay in her room by herself.... Clinical Staff Anesthesiologist tried to talk this through with her but patient had a hard time discussing therapeutic approaches to to her emotionality. That said, patient feels somewhat improved since she 1st came in and said that she is feeling so-so in addition to being scared and anxious. She does say however that she is suffering which is apparent. -Patient said that the last time she was hospitalized was in 2019 and when discharged, was overall feeling that she was doing pretty well. Discussed medication regimen and patient is not sure why medications were changed over these years but she agrees to get back on past regimen; also discussed ECT but patient can not remember if she thought this was helpful or not. Patient gave permission to talk to her provider, her cousin who is also her healthcare proxy. Per staff, covering provider, pt improved a little since admission: She is less tearful and no begging, getting on her knees with hands clapsed as she did on first day; -pt tolerating the vraylar which was increased to 3mg yesterday. pt remains tortured by worries, depression, indecisiveness...though a little less intensely so then on admission. Pt says it's very hard for her to do anything and she just wants to go lie in bed; however, she agrees to force herself to groups. Apologetically Rejects some activities recommended saying she's too anxious to attend. 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 Agrees to restart Lamictal to help w/ OCD 10/31/23 CTP (started on vraylar and lamotrigine) 11/01/23 added gabapentin to see if more immediate effect- watch for sedation cortes combined with clonazepam- 11/01 still very anxious, paralyzed by indecision, depressed; increasing Vrayar 11/02 pt remains paralyzed by her worries, fearful, tearful; expresses frustration/shame at struggles making choices overwhelmed at thought of choosing cloths, food off the menu. discussed med management and pt agrees to try Trileptal to see if it can help w/ anxiety given that Lamictal takes a while to reach therapeutic dose. -medication alone will not be enough to stabilize patient: -Team/OT discussed and created extensive behavioral/therapeutic CBT based plan which includes gradually increased tasks including picking foods off simplified menu, slowly adding choice of cloths... 11/03: continue current tx plan. 11/04 remains very anixous, paralyzed by OCD symptoms rendering unable to make decisions w/out extreme stress and anxiety; seems that Thorazine prn has lowered a little anxiety so will add to regimen. Pt now on 3 antipsychotics; she is miserable, suffering and tying to find regimen that works; will aim to eliminate one antipsychotic but for time being trying to get pt relief from overwhelming anxiety. Increasing Trileptal to 300mg BID. Not sure that Vraylar is helping but will keep for now. 3/8 Patient remains severely disabled by anxiety, walking up and down the [place] in tears, talking about how she is afraid. Patient benefited from Thorazine 75 mg which did reduce her anxiety considerably though only temporarily. -Discussed case with Dr. Bryant who treated patient in the past though her symptoms were similarly very difficult to treat, he thought she improved on combination of clozapine, Haldol, Depakote and propranolol. Also agreed with titrating Trileptal for anxiety and which is used in some cases for carrol. Clozaril and Depakote or currently on hold, given some side effects and inconvenience; propranolol as an option. -Vraylar has not seemed to help so will likely DC now that Thorazine has proven somewhat helpful; increasing Trileptal; considering scheduling Thorazine CONSIDER: Scheduling Thorazine; propranolol; maximizing Trileptal, Zyprexa, low-dose Depakote... TCA clomipramine Plan CV Q 15 -Continue Thorazine 75mg qid prn for anxiety/agitation (will dc haldol prn and hydroxyzine prn since not helping) - schedule Thorazine -continue haldol dec (due November 10?) -continue gabapentin to 300mg TId to see if can help with anxiety (started for foot pain, however, pain is new, from walking halls) -increase to Trileptal 300mg t.i.d. for anxiety; will titrate; not sure if will be helpful, but few options left to address anxiety as Vraylar/lamictal become theapeutic -continue Lamictal 25mg qhs -working with OT for help with CBT -DC Vraylar 4.5mg has not seem to help -look further into MRI impression -DC'd Prozac concern for bipolar disorder, dry mouth -Neurology/EEG: Previously she has reported some symptoms suggestive of complex partial seizures and had mildly abnormal EEG. At this time her presentation was different but I would suggest obtaining an EEG again. In addition, if a mood stabilizer is needed, I would recommend using lamotrigine, topiramate, or valproic acid. -Neurology consult 10/24 Dr. Ma, 47 years old woman admitted in hospital with severe depression and self-harm type of behavior. Couple of years ago she was admitted in hospital and reported episodes of her patel type of feeling going to her head lasting for seconds to minutes. At that time an EEG revealed left temporal sharp waves. CT scan and MRI of brain were okay. 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 Lamictal: did not seem to help, but...may have been too low a dose Fluvoxamine? not sure if helpful ECT: no help; memory loss Vraylar 4.5mg has not seemed to help Clozapine: did not tolerate frequent blood draws abilify: severe restlessness Risperdal: severe restlessness [place]: bed-wetting; not sure if helped Depakote: muscle cramps, restless... Latuda: TD Seroquel 50 mg Q 4 p.r.n. (makes aggressive) Nuedexta (Dextromethorphan /Quinidine) for uncontrollable crying/laughing Oxybutynin 10 mg Propranolol 20 mg t.i.d. hx: -Psych admission 2019 [place] -[facility] for 1 year 2019- did ok, ups/downs; lots of med changes -Home with Cousin 2020-current: past 2.5 years overall good enough, lots of up/downs and med changes BETH and some trouble breathing? Seratonin Syndrom on some meds for depression? (not sure details) -Thinks recent decomp result of adding Paxil which caused high irritability/manic/obsessive and then Prozac which caused the same; since then, outpt provider trying to do a reset on meds... Says when at home w/ Cousin, ups/downs but was able to overall function at home with sufficient good enough periods where she'd go out and do activities (with help), put on makeup, enjoy things...Sayda reports constant medication changes making it difficult to know what meds worked or at least were partially helpful...wonders that during down times, it would be better to just wait it out rather than make med changes. Thinks recent decomp result of adding Paxil which caused high irritability/manic/obsessive and then Prozac which caused the same; since then, outpt provider trying to do a reset on meds.. Patient educated on: diagnosis, medication risk/benefits and therapeutic strategies Informed Consent: understands Reason for continued inpatient stay Substantial Risk for: inability to function Time Spent With Patient Time: Total time managing care of this patient today ____ minutes.
[2023-11-06] MEDS: clonazePAM 1 MG TABLET PO (09:42)
[2023-11-06] MEDS: chlorproMAZINE HCl 25 MG TABLET 75 MG PO (10:48)
[2023-11-06 18:00] VITALS: BP 119/83; PULSE 117; TEMP 36.3; O2SAT 99
[2023-11-06] MEDS: Acetaminophen 325 MG TABLET 650 MG PO (20:56)
[2023-11-06] MEDS: lamoTRIgine 25 MG TABLET PO (21:47)
[2023-11-06] MEDS: chlorproMAZINE HCl 25 MG TABLET 50 MG PO (21:48)
[2023-11-07] MEDS: Levothyroxine Sodium 75 MCG TABLET PO (06:11)
[2023-11-07] MEDS: Omeprazole 20 MG CAPSULE.DR PO (06:11)
[2023-11-07 07:51] VITALS: BP 112/86; PULSE 96; RESP 18; TEMP 36.2; O2SAT 100
[2023-11-07] MEDS: Cholecalciferol (Vitamin D3) 25 MCG TABLET PO (09:01)
[2023-11-07] MEDS: Gabapentin 300 MG CAPSULE PO ×3 (09:01→19:31)
[2023-11-07] MEDS: chlorproMAZINE HCl 25 MG TABLET 50 MG PO ×3 (09:01→19:30)
[2023-11-07] MEDS: OXcarbazepine 300 MG TABLET PO ×3 (09:01→19:31)
[2023-11-07] MEDS: Benztropine Mesylate 1 MG TABLET PO ×2 (09:01→19:31)
--- NOTE | 2023-11-07 10:30 | P.PNPSI_ITS ---
Subjective Subjective Date of Service: 11/07/23 Reason For Visit: Bipolar Disorder Interim History: Met with patient; discussed with team Ever so slightly better. Patient remains very anxious and with much difficulty getting dressed her making any decisions. However her affect is a little less anxious and her cousin who visited today agrees. Discussed medication regimen at length and agreed to continue on current treatment plan. Patient had what looked like a dystonic reaction however she kept saying it was just that her tongue was dry. Gave patient Benadryl 50 mg which to auto service writer, seemed to make it better however patient did not think so. Cousin said that this happens from time to time and she has understood it to be dry mouth secondary to medication. Staff Anesthesiologist educated both on the side effect of dystonia for which they will monitor. Mental Status Exam Mental Status Exam Narrative: Pt is alert and oriented; behavior tearful, anxious, emotionally distressed, isolating, but cooperative;dressed in casual attire with good hygiene; mood is described as not good and affect anxious; tearful, downcast; eye contact appropriate; Speech is normal rate, volume and prosody and not pressured; both psychomotor agitation intermittently present; thought process is organized and goal directed; Thought content is on fearfulness, anxiety, hopelessness over getting better; tx; otherwise pertinent to relevant topics and without any delusional content, paranoid ideations or grandiosity; denies any SI/HI. There is no evidence of perceptual disturbance. Patients insight and judgment impaired Diagnostics Vital Signs (24Hr): Vital Signs - 24 hr 11/06/23 18:00 11/07/23 07:51 Temperature 97.3 F 97.2 F Pulse Rate 117 H 96 Respiratory Rate 18 Blood Pressure 119/83 112/86 Pulse Oximetry 99 100 Oxygen Delivery Method Room Air Room Air BMI result Body Mass Index 32.6 Labs 10/20/23 20:19 10/20/23 20:19 Medications Medications Current Medications Acetaminophen (Acetaminophen 325 Mg Tablet) 650 mg PO Q6H PRN PRN Reason: Headache/Pain Mild Scale (1-3) Last Admin: 11/06/23 20:56 Dose: 650 mg Al Hydroxide/Mg Hydroxide (Magnesium Hydrox/Alum Hydrox 30 Ml Oral.Susp) 30 ml PO Q6H PRN PRN Reason: Heartburn/Nausea Last Admin: 10/27/23 13:38 Dose: 30 ml Benztropine Mesylate (Benztropine Mesylate 1 Mg Tablet) 1 mg PO BID [facility] Last Admin: 11/07/23 09:01 Dose: 1 mg Chlorpromazine HCl (Chlorpromazine Hcl 25 Mg Tablet) 50 mg PO TID [facility] Last Admin: 11/07/23 09:01 Dose: 50 mg Chlorpromazine HCl (Chlorpromazine Hcl 25 Mg Tablet) 50 mg PO QID PRN PRN Reason: anxiety/agitation Clonazepam (Clonazepam 1 Mg Tablet) 1 mg PO TID PRN PRN Reason: panic attack Last Admin: 11/06/23 09:42 Dose: 1 mg Gabapentin (Gabapentin 300 Mg Capsule) 300 mg PO TID [facility] Last Admin: 11/07/23 09:01 Dose: 300 mg Haloperidol Decanoate (Haloperidol Decanoate 50 Mg/Ml Vial) 100 mg IM Q30D [facility] Lamotrigine (Lamotrigine 25 Mg Tablet) 25 mg PO BEDTIME [facility] Last Admin: 11/06/23 21:47 Dose: 25 mg Levothyroxine Sodium (Levothyroxine Sodium 75 Mcg Tablet) 75 mcg PO DAILY@629 [facility] Last Admin: 11/07/23 06:11 Dose: 75 mcg Magnesium Hydroxide (Milk Of Magnesia 30 Ml Oral.Susp) 30 ml PO DAILY PRN PRN Reason: Constipation Last Admin: 11/03/23 05:11 Dose: 30 ml Omeprazole (Omeprazole 20 Mg Capsule.Dr) 20 mg PO DAILY@629 [facility] Last Admin: 11/07/23 06:11 Dose: 20 mg Oxcarbazepine (Oxcarbazepine 300 Mg Tablet) 300 mg PO TID [facility] Last Admin: 11/07/23 09:01 Dose: 300 mg Trazodone HCl (Trazodone Hcl 50 Mg Tablet) 50 mg PO BEDTIME MRX1 PRN PRN Reason: Insomnia Last Admin: 11/05/23 19:47 Dose: 50 mg Vitamin D (Cholecalciferol (Vitamin D3) 25 Mcg Tablet) 25 mcg PO DAILY [facility] Last Admin: 11/07/23 09:01 Dose: 25 mcg Allergies Allergies Allergy/AdvReac Type Severity Reaction Status Date / Time aripiprazole Allergy Mild Unknown Verified 10/07/23 07:50 bupropion AdvReac Unknown Verified 10/07/23 07:50 divalproex sodium AdvReac Unknown Verified 10/07/23 07:50 [From Depakote] risperidone AdvReac Unknown Verified 10/07/23 07:50 Assessment & Plan Assessment & Plan (1) Bipolar 1 disorder, mixed: Status: Acute Code(s): F31.60 - Bipolar disorder, current episode mixed, unspecified Assessment and Plan: 11/01/23 discussed trying gabapentin, tried to review prior hx of this but seems like hx is archived or I couldn't figure out how to access it- (2) OCD (obsessive compulsive disorder): Qualifiers: Obsessive-compulsive disorder type: mixed obsessional thoughts and acts Qualified Code(s): F42.2 - Mixed obsessional thoughts and acts Status: Acute Code(s): F42.9 - Obsessive-compulsive disorder, unspecified (3) Abnormal EEG: Status: Acute Code(s): R94.01 - Abnormal electroencephalogram [EEG] Assessment and Plan: 47 years old woman who was admitted in hospital with severe depression. Previously she has reported some symptoms suggestive of complex partial seizures and had mildly abnormal EEG. At this time her presentation was different but I would suggest obtaining an EEG again. In addition, if a mood stabilizer is needed, I would recommend using lamotrigine, topiramate, or valproic acid. (4) History of electroconvulsive therapy: Status: Acute Code(s): Z98.890 - Other specified postprocedural states Assessment and Plan: Pt reports this didn't help her last time she tried Plan 47 yo woman with chronic Bipolar Disorder and OCD with severe anxiety and restlessness, intrusive behavior, ruminating and pacing in need of hospital treatment admitted on CV to [facility]. Impression/decision making: History of difficult to treat bipolar depression, OCD. Haldol has been helpful and pt will continue on it, but many other failed med trials including antipsychotics, mood stabilizers and SSRI's; ECT in past not helpful (maybe because hard to get good seizure since on benzos/depakote?). Pt started on Vraylar for bipolar depression and Lamictal for OCD (and depression/anxiety). Hospital course: 10/24: Neurology saw patient recommended repeat EEG. ?ECT. Clarify Depakote allergy. 10/26: Continue current management and treatment plan. Repeat EEG pending. telephone call to adrien Alfredo and email to arrange a time to talk with her about medication reactions as pt does not recall; increase vraylar to 3mg daily 10/27 continue plan; waiting to hear back from Sayda re medication reaction but have the list of meds with which she had poor reactions. consider increase vraylar if needed and consider scheduled clonazepam; Sayda (cousin) reports pt has a referral to [facility] neurology already for after care but no appt yet. 10/28 Patient tearful, hard to express herself through emotions; saying that she is scared she will never get better, trying to push herself to go to groups... She is following staff's recommendations at behavioral activation however it is also causing her some stress as she can not tell how long she supposed to be out of her room, engaged with others feeling very unable to decide how much time she should be allowed to stay in her room by herself.... Staff Anesthesiologist tried to talk this through with her but patient had a hard time discussing therapeutic approaches to to her emotionality. That said, patient feels somewhat improved since she 1st came in and said that she is feeling so-so in addition to being scared and anxious. She does say however that she is suffering which is apparent. -Patient said that the last time she was hospitalized was in 2019 and when discharged, was overall feeling that she was doing pretty well. Discussed medication regimen and patient is not sure why medications were changed over these years but she agrees to get back on past regimen; also discussed ECT but patient can not remember if she thought this was helpful or not. Patient gave permission to talk to her provider, her cousin who is also her healthcare proxy. Per staff, covering provider, pt improved a little since admission: She is less tearful and no begging, getting on her knees with hands clapsed as she did on first day; -pt tolerating the vraylar which was increased to 3mg yesterday. pt remains tortured by worries, depression, indecisiveness...though a little less intensely so then on admission. Pt says it's very hard for her to do anything and she just wants to go lie in bed; however, she agrees to force herself to groups. Apologetically Rejects some activities recommended saying she's too anxious to attend. -cousin/HCP Sayda: gave hx -Says Haldol has historically worked the best; agrees with re-trial of Lamicta; continue w/ Vraylar -She voiced [facility] MRI concerns; auto service writer able to read impression which does refer to lesion Right Frontal lobe (not in [facility]) 10/29 pt agrees she's doing a little better...says a little less anxious-maybe due to Vraylar; affect is more calm; agrees to continue -continues to feel depressed and struggles with both ocd-obsessional worries and indecisiveness (can't tolerate picking out menu, cloths...what to do w/ time). Agrees to restart Lamictal to help w/ OCD 10/31/23 CTP (started on vraylar and lamotrigine) 11/01/23 added gabapentin to see if more immediate effect- watch for sedation cortes combined with clonazepam- 11/01 still very anxious, paralyzed by indecision, depressed; increasing Vrayar 11/02 pt remains paralyzed by her worries, fearful, tearful; expresses frustration/shame at struggles making choices overwhelmed at thought of choosing cloths, food off the menu. discussed med management and pt agrees to try Trileptal to see if it can help w/ anxiety given that Lamictal takes a while to reach therapeutic dose. -medication alone will not be enough to stabilize patient: -Team/OT discussed and created extensive behavioral/therapeutic CBT based plan which includes gradually increased tasks including picking foods off simplified menu, slowly adding choice of cloths... 11/03: continue current tx plan. 11/04 remains very anixous, paralyzed by OCD symptoms rendering unable to make decisions w/out extreme stress and anxiety; seems that Thorazine prn has lowered a little anxiety so will add to regimen. Pt now on 3 antipsychotics; she is miserable, suffering and tying to find regimen that works; will aim to eliminate one antipsychotic but for time being trying to get pt relief from overwhelming anxiety. Increasing Trileptal to 300mg BID. Not sure that Vraylar is helping but will keep for now. 11/05 Patient remains severely disabled by anxiety, walking up and down the [place] in tears, talking about how she is afraid. Patient benefited from Thorazine 75 mg which did reduce her anxiety considerably though only temporarily. -Discussed case with Dr. Bryant who treated patient in the past though her symptoms were similarly very difficult to treat, he thought she improved on combination of clozapine, Haldol, Depakote and propranolol. Also agreed with titrating Trileptal for anxiety and which is used in some cases for carrol. Clozaril and Depakote or currently on hold, given some side effects and inconvenience; propranolol as an option. -Vraylar has not seemed to help so will likely DC now that Thorazine has proven somewhat helpful; increasing Trileptal; considering scheduling Thorazine 11/06 Ever so slightly better. Patient remains very anxious and with much difficulty getting dressed her making any decisions. However her affect is a little less anxious and her cousin who visited today agrees. Discussed medication regimen at length and agreed to continue on current treatment plan. Patient had what looked like a dystonic reaction however she kept saying it was just that her tongue was dry. Gave patient Benadryl 50 mg which to auto service writer, seemed to make it better however patient did not think so. She is on Cogentin 1 mg b.i.d. which ostensibly should prevent dystonia however it is still unclear to auto service writer what occurred today. Cousin said that this happens from time to time and she has understood it to be dry mouth secondary to medication. Staff Anesthesiologist educated both on the side effect of dystonia for which they will monitor. -will add Benadryl 50 mg as a p.r.n. in case of dystonic reaction CONSIDER: Scheduling Thorazine; propranolol; maximizing Trileptal, Zyprexa, low-dose Depakote... TCA clomipramine Plan CV Q 15 Add Benadryl 50 mg p.r.n. for dystonia -Continue Thorazine 50mg TID PRN for anxiety/agitation (will dc haldol prn and hydroxyzine prn since not helping) -Continue Thorazine 50mg TiD -continue haldol dec 100mg IM due November 10 -continue gabapentin to 300mg TId to see if can help with anxiety (started for foot pain, however, pain is new, from walking halls) -Continue Trileptal 300mg t.i.d. for anxiety; will titrate; not sure if will be helpful, but few options left to address anxiety as Vraylar/lamictal become theapeutic -continue Lamictal 25mg qhs -working with OT for help with CBT -DC Vraylar 4.5mg has not seem to help -look further into MRI impression -DC'd Prozac concern for bipolar disorder, dry mouth -Neurology/EEG: Previously she has reported some symptoms suggestive of complex partial seizures and had mildly abnormal EEG. At this time her presentation was different but I would suggest obtaining an EEG again. In addition, if a mood stabilizer is needed, I would recommend using lamotrigine, topiramate, or valproic acid. -Neurology consult 10/24 Dr. Ma, 47 years old woman admitted in hospital with severe depression and self-harm type of behavior. Couple of years ago she was admitted in hospital and reported episodes of her patel type of feeling going to her head lasting for seconds to minutes. At that time an EEG revealed left temporal sharp waves. CT scan and MRI of brain were okay. -however, [facility] MRI concerns; auto service writer able to read impression from [facility] 09/17/23 which does refer to lesion Right Frontal lobe (not in [facility]); will discuss with neuro Med trials: Haldol: worked the best ! Lamictal: did not seem to help, but...may have been too low a dose Fluvoxamine? not sure if helpful ECT: no help; memory loss Vraylar 4.5mg has not seemed to help Clozapine: did not tolerate frequent blood draws abilify: severe restlessness Risperdal: severe restlessness [place]: bed-wetting; not sure if helped Depakote: muscle cramps, restless... Latuda: TD Seroquel 50 mg Q 4 p.r.n. (makes aggressive) Nuedexta (Dextromethorphan /Quinidine) for uncontrollable crying/laughing Oxybutynin 10 mg Propranolol 20 mg t.i.d. hx: -Psych admission 2019 [place] [facility] 2019- did ok, ups/downs; lots of med changes -Home with Cousin 2020-current: past 2.5 years overall good enough, lots of up/downs and med changes BETH and some trouble breathing? Seratonin Syndrom on some meds for depression? (not sure details) -Thinks recent decomp result of adding Paxil which caused high irritability/manic/obsessive and then Prozac which caused the same; since then, outpt provider trying to do a reset on meds... Says when at home w/ Cousin, ups/downs but was able to overall function at home with sufficient good enough periods where she'd go out and do activities (with help), put on makeup, enjoy things...Sayda reports constant medication changes making it difficult to know what meds worked or at least were partially helpful...wonders that during down times, it would be better to just wait it out rather than make med changes. Thinks recent decomp result of adding Paxil which caused high irritability/manic/obsessive and then Prozac which caused the same; since then, outpt provider trying to do a reset on meds.. Patient educated on: diagnosis and medication risk/benefits Informed Consent: understands Reason for continued inpatient stay Substantial Risk for: inability to function Time Spent With Patient Time: Total time managing care of this patient today ____ minutes.
[2023-11-07] MEDS: diphenhydrAMINE HCL 25 MG CAPSULE 50 MG PO ×2 (12:35→19:30)
[2023-11-07 17:51] VITALS: BP 113/69; PULSE 102; RESP 22; TEMP 36.3; O2SAT 100
[2023-11-07] MEDS: Acetaminophen 325 MG TABLET 650 MG PO (19:30)
[2023-11-07] MEDS: clonazePAM 1 MG TABLET PO (19:31)
[2023-11-07] MEDS: lamoTRIgine 25 MG TABLET PO (19:31)
[2023-11-08] MEDS: Omeprazole 20 MG CAPSULE.DR PO (06:10)
[2023-11-08] MEDS: Levothyroxine Sodium 75 MCG TABLET PO (06:10)
[2023-11-08 08:19] VITALS: BP 139/82; PULSE 92; RESP 18; TEMP 36.2; O2SAT 98
[2023-11-08] MEDS: Benztropine Mesylate 1 MG TABLET PO ×2 (09:06→20:01)
[2023-11-08] MEDS: chlorproMAZINE HCl 25 MG TABLET 50 MG PO ×3 (09:06→20:02)
[2023-11-08] MEDS: OXcarbazepine 300 MG TABLET PO ×3 (09:06→20:01)
[2023-11-08] MEDS: Gabapentin 300 MG CAPSULE PO ×3 (09:06→20:01)
[2023-11-08] MEDS: Cholecalciferol (Vitamin D3) 25 MCG TABLET PO (09:06)
--- NOTE | 2023-11-08 11:03 | P.PNPSI_ITS ---
Subjective Subjective Date of Service: 11/08/23 Reason For Visit: Bipolar Disorder Interim History: met with patient; discussed with team same presentation; frequent crying spells; forcing herself to follow behavioral plan. Discussed med regimen and she agrees to continue currents meds for now, holding off changes Mental Status Exam Mental Status Exam Narrative: Pt is alert and oriented; behavior tearful, anxious, emotionally distressed, isolating, but cooperative;dressed in casual attire with good hygiene; mood is described as not good and affect anxious; tearful, downcast; eye contact appropriate; Speech is normal rate, volume and prosody and not pressured; both psychomotor agitation intermittently present; thought process is organized and goal directed; Thought content is on fearfulness, anxiety, hopelessness over getting better; tx; otherwise pertinent to relevant topics and without any delusional content, paranoid ideations or grandiosity; denies any SI/HI. There is no evidence of perceptual disturbance. Patients insight and judgment impaired Diagnostics Vital Signs (24Hr): Vital Signs - 24 hr 11/07/23 17:51 11/08/23 08:19 Temperature 97.4 F 97.1 F Pulse Rate 102 H 92 Respiratory Rate 22 H 81 H Blood Pressure 113/69 139/82 Pulse Oximetry 100 98 Oxygen Delivery Method Room Air Room Air BMI result Body Mass Index 32.6 Labs 10/20/23 20:19 10/20/23 20:19 Medications Medications Current Medications Acetaminophen (Acetaminophen 325 Mg Tablet) 650 mg PO Q6H PRN PRN Reason: Headache/Pain Mild Scale (1-3) Last Admin: 11/07/23 19:30 Dose: 650 mg Al Hydroxide/Mg Hydroxide (Magnesium Hydrox/Alum Hydrox 30 Ml Oral.Susp) 30 ml PO Q6H PRN PRN Reason: Heartburn/Nausea Last Admin: 10/27/23 13:38 Dose: 30 ml Benztropine Mesylate (Benztropine Mesylate 1 Mg Tablet) 1 mg PO BID [facility] Last Admin: 11/08/23 09:06 Dose: 1 mg Chlorpromazine HCl (Chlorpromazine Hcl 25 Mg Tablet) 50 mg PO TID [facility] [place] Last Admin: 11/08/23 09:06 Dose: 50 mg Chlorpromazine HCl (Chlorpromazine Hcl 25 Mg Tablet) 50 mg PO QID PRN PRN Reason: anxiety/agitation Clonazepam (Clonazepam 1 Mg Tablet) 1 mg PO TID PRN PRN Reason: panic attack Last Admin: 11/07/23 19:31 Dose: 1 mg Diphenhydramine HCl (Diphenhydramine Hcl 25 Mg Capsule) 50 mg PO Q6H PRN PRN Reason: DYStonia Last Admin: 11/07/23 19:30 Dose: 50 mg Gabapentin (Gabapentin 300 Mg Capsule) 300 mg PO TID [facility] [place] Last Admin: 11/08/23 09:06 Dose: 300 mg Haloperidol Decanoate (Haloperidol Decanoate 50 Mg/Ml Vial) 100 mg IM Q28D [facility] [place] Lamotrigine (Lamotrigine 25 Mg Tablet) 25 mg PO BEDTIME [facility] [place] Last Admin: 11/07/23 19:31 Dose: 25 mg Levothyroxine Sodium (Levothyroxine Sodium 75 Mcg Tablet) 75 mcg PO DAILY@629 [facility] [place] Last Admin: 11/08/23 06:10 Dose: 75 mcg Magnesium Hydroxide (Milk Of Magnesia 30 Ml Oral.Susp) 30 ml PO DAILY PRN PRN Reason: Constipation Last Admin: 11/03/23 05:11 Dose: 30 ml Omeprazole (Omeprazole 20 Mg Capsule.Dr) 20 mg PO DAILY@629 [facility] [place] Last Admin: 11/08/23 06:10 Dose: 20 mg Oxcarbazepine (Oxcarbazepine 300 Mg Tablet) 300 mg PO TID [facility] [place] Last Admin: 11/08/23 09:06 Dose: 300 mg Trazodone HCl (Trazodone Hcl 50 Mg Tablet) 50 mg PO BEDTIME MRX1 PRN PRN Reason: Insomnia Last Admin: 11/05/23 19:47 Dose: 50 mg Vitamin D (Cholecalciferol (Vitamin D3) 25 Mcg Tablet) 25 mcg PO DAILY [facility] [place] Last Admin: 11/08/23 09:06 Dose: 25 mcg Allergies Allergies Allergy/AdvReac Type Severity Reaction Status Date / Time aripiprazole Allergy Mild Unknown Verified 10/07/23 07:50 bupropion AdvReac Unknown Verified 10/07/23 07:50 divalproex sodium AdvReac Unknown Verified 10/07/23 07:50 [From Depakote] risperidone AdvReac Unknown Verified 10/07/23 07:50 Assessment & Plan Assessment & Plan (1) Bipolar 1 disorder, mixed: Status: Acute Code(s): F31.60 - Bipolar disorder, current episode mixed, unspecified Assessment and Plan: 11/01/23 discussed trying gabapentin, tried to review prior hx of this but seems like hx is archived or I couldn't figure out how to access it- (2) OCD (obsessive compulsive disorder): Qualifiers: Obsessive-compulsive disorder type: mixed obsessional thoughts and acts Qualified Code(s): F42.2 - Mixed obsessional thoughts and acts Status: Acute Code(s): F42.9 - Obsessive-compulsive disorder, unspecified (3) Abnormal EEG: Status: Acute Code(s): R94.01 - Abnormal electroencephalogram [EEG] Assessment and Plan: 47 years old woman who was admitted in hospital with severe depression. Previously she has reported some symptoms suggestive of complex partial seizures and had mildly abnormal EEG. At this time her presentation was different but I would suggest obtaining an EEG again. In addition, if a mood stabilizer is needed, I would recommend using lamotrigine, topiramate, or valproic acid. (4) History of electroconvulsive therapy: Status: Acute Code(s): Z98.890 - Other specified postprocedural states Assessment and Plan: Pt reports this didn't help her last time she tried Plan 47 yo woman with chronic Bipolar Disorder and OCD with severe anxiety and restlessness, intrusive behavior, ruminating and pacing in need of hospital treatment admitted on CV to [facility]. Impression/decision making: History of difficult to treat bipolar depression, OCD. Haldol has been helpful and pt will continue on it, but many other failed med trials including antipsychotics, mood stabilizers and SSRI's; ECT in past not helpful (maybe because hard to get good seizure since on benzos/depakote?). Pt started on Vraylar for bipolar depression and Lamictal for OCD (and depression/anxiety). Hospital course: 10/24: Neurology saw patient recommended repeat EEG. ?ECT. Clarify Depakote allergy. 10/26: Continue current management and treatment plan. Repeat EEG pending. telephone call to adrien Alfredo and email to arrange a time to talk with her about medication reactions as pt does not recall; increase vraylar to 3mg daily 10/27 continue plan; waiting to hear back from Sayda re medication reaction but have the list of meds with which she had poor reactions. consider increase vraylar if needed and consider scheduled clonazepam; Sayda (cousin) reports pt has a referral to [facility] neurology already for after care but no appt yet. 10/28 Patient tearful, hard to express herself through emotions; saying that she is scared she will never get better, trying to push herself to go to groups... She is following staff's recommendations at behavioral activation however it is also causing her some stress as she can not tell how long she supposed to be out of her room, engaged with others feeling very unable to decide how much time she should be allowed to stay in her room by herself.... Viticulture Teacher tried to talk this through with her but patient had a hard time discussing therapeutic approaches to to her emotionality. That said, patient feels somewhat improved since she 1st came in and said that she is feeling so-so in addition to being scared and anxious. She does say however that she is suffering which is apparent. -Patient said that the last time she was hospitalized was in 2019 and when discharged, was overall feeling that she was doing pretty well. Discussed medication regimen and patient is not sure why medications were changed over these years but she agrees to get back on past regimen; also discussed ECT but patient can not remember if she thought this was helpful or not. Patient gave permission to talk to her provider, her cousin who is also her healthcare proxy. Per staff, covering provider, pt improved a little since admission: She is less tearful and no begging, getting on her knees with hands clapsed as she did on first day; -pt tolerating the vraylar which was increased to 3mg yesterday. pt remains tortured by worries, depression, indecisiveness...though a little less intensely so then on admission. Pt says it's very hard for her to do anything and she just wants to go lie in bed; however, she agrees to force herself to groups. Apologetically Rejects some activities recommended saying she's too anxious to attend. -cousin/HCP Sayda: gave hx -Says Haldol has historically worked the best; agrees with re-trial of Lamicta; continue w/ Vraylar -She voiced [facility] MRI concerns; group underwriter able to read impression which does refer to lesion Right Frontal lobe (not in meditech) 10/29 pt agrees she's doing a little better...says a little less anxious-maybe due to Vraylar; affect is more calm; agrees to continue -continues to feel depressed and struggles with both ocd-obsessional worries and indecisiveness (can't tolerate picking out menu, cloths...what to do w/ time). Agrees to restart Lamictal to help w/ OCD 10/31/23 CTP (started on vraylar and lamotrigine) 11/01/23 added gabapentin to see if more immediate effect- watch for sedation cortes combined with clonazepam- 11/01 still very anxious, paralyzed by indecision, depressed; increasing Vrayar 11/02 pt remains paralyzed by her worries, fearful, tearful; expresses frustration/shame at struggles making choices overwhelmed at thought of choosing cloths, food off the menu. discussed med management and pt agrees to try Trileptal to see if it can help w/ anxiety given that Lamictal takes a while to reach therapeutic dose. -medication alone will not be enough to stabilize patient: -Team/OT discussed and created extensive behavioral/therapeutic CBT based plan which includes gradually increased tasks including picking foods off simplified menu, slowly adding choice of cloths... 11/03: continue current tx plan. 11/04 remains very anixous, paralyzed by OCD symptoms rendering unable to make decisions w/out extreme stress and anxiety; seems that Thorazine prn has lowered a little anxiety so will add to regimen. Pt now on 3 antipsychotics; she is miserable, suffering and tying to find regimen that works; will aim to eliminate one antipsychotic but for time being trying to get pt relief from overwhelming anxiety. Increasing Trileptal to 300mg BID. Not sure that Vraylar is helping but will keep for now. 11/05 Patient remains severely disabled by anxiety, walking up and down the [place] in tears, talking about how she is afraid. Patient benefited from Thorazine 75 mg which did reduce her anxiety considerably though only temporarily. -Discussed case with Dr. Bryant who treated patient in the past though her symptoms were similarly very difficult to treat, he thought she improved on combination of clozapine, Haldol, Depakote and propranolol. Also agreed with titrating Trileptal for anxiety and which is used in some cases for carrol. Clozaril and Depakote or currently on hold, given some side effects and inconvenience; propranolol as an option. -Vraylar has not seemed to help so will likely DC now that Thorazine has proven somewhat helpful; increasing Trileptal; considering scheduling Thorazine 11/06 Ever so slightly better. Patient remains very anxious and with much difficulty getting dressed her making any decisions. However her affect is a little less anxious and her cousin who visited today agrees. Discussed medication regimen at length and agreed to continue on current treatment plan. Patient had what looked like a dystonic reaction however she kept saying it was just that her tongue was dry. Gave patient Benadryl 50 mg which to group underwriter, seemed to make it better however patient did not think so. She is on Cogentin 1 mg b.i.d. which ostensibly should prevent dystonia however it is still unclear to group underwriter what occurred today. Cousin said that this happens from time to time and she has understood it to be dry mouth secondary to medication. Viticulture Teacher educated both on the side effect of dystonia for which they will monitor. -will add Benadryl 50 mg as a p.r.n. in case of dystonic reaction 11/07 same presentation; no tongue/mouth issues CONSIDER: Scheduling Thorazine; propranolol; maximizing Trileptal, Zyprexa, low-dose Depakote... TCA clomipramine Plan CV Q 15 Add Benadryl 50 mg p.r.n. for dystonia -Continue Thorazine 50mg TID PRN for anxiety/agitation (will dc haldol prn and hydroxyzine prn since not helping) -Continue Thorazine 50mg TiD -continue haldol dec 100mg IM due November 10 -continue gabapentin to 300mg TId to see if can help with anxiety (started for foot pain, however, pain is new, from walking halls) -Continue Trileptal 300mg t.i.d. for anxiety; will titrate; not sure if will be helpful, but few options left to address anxiety as Vraylar/lamictal become theapeutic -continue Lamictal 25mg qhs -working with OT for help with CBT -DC Vraylar 4.5mg has not seem to help -look further into MRI impression -DC'd Prozac concern for bipolar disorder, dry mouth -Neurology/EEG: Previously she has reported some symptoms suggestive of complex partial seizures and had mildly abnormal EEG. At this time her presentation was different but I would suggest obtaining an EEG again. In addition, if a mood stabilizer is needed, I would recommend using lamotrigine, topiramate, or valproic acid. -Neurology consult 10/24 Dr. Ma, 47 years old woman admitted in hospital with severe depression and self-harm type of behavior. Couple of years ago she was admitted in hospital and reported episodes of her patel type of feeling going to her head lasting for seconds to minutes. At that time an EEG revealed left temporal sharp waves. CT scan and MRI of brain were okay. -however, [facility] MRI concerns; group underwriter able to read impression from [facility] 09/17/23 which does refer to [facility] will discuss with neuro Med trials: Haldol: worked the best ! Lamictal: did not seem to help, but...may have been too low a dose Fluvoxamine? not sure if helpful ECT: no help; memory loss Vraylar 4.5mg has not seemed to help Clozapine: did not tolerate frequent blood draws abilify: severe restlessness Risperdal: severe restlessness [place]: bed-wetting; not sure if helped Depakote: muscle cramps, restless... Latuda: TD Seroquel 50 mg Q 4 p.r.n. (makes aggressive) Nuedexta (Dextromethorphan /Quinidine) for uncontrollable crying/laughing Oxybutynin 10 mg Propranolol 20 mg t.i.d. hx: -Psych admission 2019 [place] -[facility] for [facility] year 2019- did ok, ups/downs; lots of med changes -Home with Cousin 2020-current: past 2.5 years overall good enough, lots of up/downs and med changes BETH and some trouble breathing? Seratonin Syndrom on some meds for depression? (not sure details) -Thinks recent decomp result of adding Paxil which caused high irritability/manic/obsessive and then Prozac which caused the same; since then, outpt provider trying to do a reset on meds... Says when at home w/ Cousin, ups/downs but was able to overall function at home with sufficient good enough periods where she'd go out and do activities (with help), put on makeup, enjoy things...Sayda reports constant medication changes making it difficult to know what meds worked or at least were partially helpful...wonders that during down times, it would be better to just wait it out rather than make med changes. Thinks recent decomp result of adding Paxil which caused high irritability/manic/obsessive and then Prozac which caused the same; since then, outpt provider trying to do a reset on meds.. Patient educated on: diagnosis and medication risk/benefits Informed Consent: understands Reason for continued inpatient stay Substantial Risk for: inability to function Time Spent With Patient Time: Total time managing care of this patient today ____ minutes.
[2023-11-08 18:44] VITALS: BP 124/83; PULSE 107; RESP 18; TEMP 36.4; O2SAT 99
[2023-11-08] MEDS: lamoTRIgine 25 MG TABLET PO (20:02)
[2023-11-09] MEDS: Omeprazole 20 MG CAPSULE.DR PO (05:10)
[2023-11-09] MEDS: Levothyroxine Sodium 75 MCG TABLET PO (05:10)
[2023-11-09 08:00] VITALS: BP 103/66; PULSE 99; RESP 18; TEMP 36.3; O2SAT 100
[2023-11-09] MEDS: Benztropine Mesylate 1 MG TABLET PO ×2 (08:28→20:56)
[2023-11-09] MEDS: Gabapentin 300 MG CAPSULE PO ×3 (08:28→20:59)
[2023-11-09] MEDS: Cholecalciferol (Vitamin D3) 25 MCG TABLET PO (08:28)
[2023-11-09] MEDS: chlorproMAZINE HCl 25 MG TABLET 50 MG PO ×3 (08:28→20:57)
[2023-11-09] MEDS: OXcarbazepine 300 MG TABLET PO ×3 (08:28→20:56)
--- NOTE | 2023-11-09 09:55 | HO.PSYCHPN ---
Subjective Subjective Date of Service: 11/09/23 Reason For Visit: Bipolar Disorder Interim History: met with patient; discussed with team Patient remains with considerable struggles completing tasks, dealing with a close due to excessive worrying. Discussed medication regimen and now that patient seems to have stabilized some discussing whether to start TCA for OCD. Patient has decompensated with SSRIs and there remain some risk with TCAs as well, however OCD symptoms are crippling and patient is desperate for relief. Mental Status Exam Mental Status Exam Narrative: Pt is alert and oriented; behavior tearful, anxious, emotionally distressed, isolating, but cooperative;dressed in casual attire with good hygiene; mood is described as not good and affect anxious; tearful, downcast; eye contact appropriate; Speech is normal rate, volume and prosody and not pressured; both psychomotor agitation intermittently present; thought process is organized and goal directed; Thought content is on fearfulness, anxiety, hopelessness over getting better; tx; otherwise pertinent to relevant topics and without any delusional content, paranoid ideations or grandiosity; denies any SI/HI. There is no evidence of perceptual disturbance. Patients insight and judgment impaired Diagnostics Vital Signs (24Hr): Vital Signs - 24 hr 11/08/23 18:44 11/09/23 08:00 Temperature 97.5 F 97.3 F Pulse Rate 107 H 99 Respiratory Rate 18 18 Blood Pressure 124/83 103/66 Pulse Oximetry 99 100 Oxygen Delivery Method Room Air Room Air BMI result Body Mass Index 32.6 Labs 10/20/23 20:19 10/20/23 20:19 Medications Medications Current Medications Acetaminophen (Acetaminophen 325 Mg Tablet) 650 mg PO Q6H PRN PRN Reason: Headache/Pain Mild Scale (1-3) Last Admin: 11/07/23 19:30 Dose: 650 mg Al Hydroxide/Mg Hydroxide (Magnesium Hydrox/Alum Hydrox 30 Ml Oral.Susp) 30 ml PO Q6H PRN PRN Reason: Heartburn/Nausea Last Admin: 10/27/23 13:38 Dose: 30 ml Benztropine Mesylate (Benztropine Mesylate 1 Mg Tablet) 1 mg PO BID [facility] Last Admin: 11/09/23 08:28 Dose: 1 mg Chlorpromazine HCl (Chlorpromazine Hcl 25 Mg Tablet) 50 mg PO TID [facility] Last Admin: 11/09/23 08:28 Dose: 50 mg Chlorpromazine HCl (Chlorpromazine Hcl 25 Mg Tablet) 50 mg PO QID PRN PRN Reason: anxiety/agitation Clonazepam (Clonazepam 1 Mg Tablet) 1 mg PO TID PRN PRN Reason: panic attack Last Admin: 11/07/23 19:31 Dose: 1 mg Diphenhydramine HCl (Diphenhydramine Hcl 25 Mg Capsule) 50 mg PO Q6H PRN PRN Reason: DYStonia Last Admin: 11/07/23 19:30 Dose: 50 mg Gabapentin (Gabapentin 300 Mg Capsule) 300 mg PO TID [facility] Last Admin: 11/09/23 08:28 Dose: 300 mg Haloperidol Decanoate (Haloperidol Decanoate 50 Mg/Ml Vial) 100 mg IM Q28D [facility] Lamotrigine (Lamotrigine 25 Mg Tablet) 25 mg PO BEDTIME [facility] Last Admin: 11/08/23 20:02 Dose: 25 mg Levothyroxine Sodium (Levothyroxine Sodium 75 Mcg Tablet) 75 mcg PO DAILY@0630 [facility] Last Admin: 11/09/23 05:10 Dose: 75 mcg Magnesium Hydroxide (Milk Of Magnesia 30 Ml Oral.Susp) 30 ml PO DAILY PRN PRN Reason: Constipation Last Admin: 11/03/23 05:11 Dose: 30 ml Omeprazole (Omeprazole 20 Mg Capsule.Dr) 20 mg PO DAILY@0630 [facility] Last Admin: 11/09/23 05:10 Dose: 20 mg Oxcarbazepine (Oxcarbazepine 300 Mg Tablet) 300 mg PO TID [facility] Last Admin: 11/09/23 08:28 Dose: 300 mg Trazodone HCl (Trazodone Hcl 50 Mg Tablet) 50 mg PO BEDTIME MRX1 PRN PRN Reason: Insomnia Last Admin: 11/05/23 19:47 Dose: 50 mg Vitamin D (Cholecalciferol (Vitamin D3) 25 Mcg Tablet) 25 mcg PO DAILY [facility] Last Admin: 11/09/23 08:28 Dose: 25 mcg Allergies Allergies Allergy/AdvReac Type Severity Reaction Status Date / Time aripiprazole Allergy Mild Unknown Verified 10/07/23 07:50 bupropion AdvReac Unknown Verified 10/07/23 07:50 divalproex sodium AdvReac Unknown Verified 10/07/23 07:50 [From Depakote] risperidone AdvReac Unknown Verified 10/07/23 07:50 Assessment & Plan Assessment & Plan (1) Bipolar 1 disorder, mixed: Status: Acute Code(s): F31.60 - Bipolar disorder, current episode mixed, unspecified Assessment and Plan: 11/01/23 discussed trying gabapentin, tried to review prior hx of this but seems like hx is archived or I couldn't figure out how to access it- (2) OCD (obsessive compulsive disorder): Qualifiers: Obsessive-compulsive disorder type: mixed obsessional thoughts and acts Qualified Code(s): F42.2 - Mixed obsessional thoughts and acts Status: Acute Code(s): F42.9 - Obsessive-compulsive disorder, unspecified (3) Abnormal EEG: Status: Acute Code(s): R94.01 - Abnormal electroencephalogram [EEG] Assessment and Plan: 47 years old woman who was admitted in hospital with severe depression. Previously she has reported some symptoms suggestive of complex partial seizures and had mildly abnormal EEG. At this time her presentation was different but I would suggest obtaining an EEG again. In addition, if a mood stabilizer is needed, I would recommend using lamotrigine, topiramate, or valproic acid. (4) History of electroconvulsive therapy: Status: Acute Code(s): Z98.890 - Other specified postprocedural states Assessment and Plan: Pt reports this didn't help her last time she tried Plan 47 yo woman with chronic Bipolar Disorder and OCD with severe anxiety and restlessness, intrusive behavior, ruminating and pacing in need of hospital treatment admitted on CV to [facility]. Impression/decision making: History of difficult to treat bipolar depression, OCD. Haldol has been helpful and pt will continue on it, but many other failed med trials including antipsychotics, mood stabilizers and SSRI's; ECT in past not helpful (maybe because hard to get good seizure since on benzos/depakote?). Pt started on Vraylar for bipolar depression and Lamictal for OCD (and depression/anxiety). Hospital course: 10/24: Neurology saw patient recommended repeat EEG. ?ECT. Clarify Depakote allergy. 10/26: Continue current management and treatment plan. Repeat EEG pending. telephone call to adrien Alfredo and email to arrange a time to talk with her about medication reactions as pt does not recall; increase vraylar to 3mg daily 10/27 continue plan; waiting to hear back from Sayda re medication reaction but have the list of meds with which she had poor reactions. consider increase vraylar if needed and consider scheduled clonazepam; Sayda (cousin) reports pt has a referral to [facility] neurology already for after care but no appt yet. 10/28 Patient tearful, hard to express herself through emotions; saying that she is scared she will never get better, trying to push herself to go to groups... She is following staff's recommendations at behavioral activation however it is also causing her some stress as she can not tell how long she supposed to be out of her room, engaged with others feeling very unable to decide how much time she should be allowed to stay in her room by herself.... Tip Out Worker tried to talk this through with her but patient had a hard time discussing therapeutic approaches to to her emotionality. That said, patient feels somewhat improved since she 1st came in and said that she is feeling so-so in addition to being scared and anxious. She does say however that she is suffering which is apparent. -Patient said that the last time she was hospitalized was in 2019 and when discharged, was overall feeling that she was doing pretty well. Discussed medication regimen and patient is not sure why medications were changed over these years but she agrees to get back on past regimen; also discussed ECT but patient can not remember if she thought this was helpful or not. Patient gave permission to talk to her provider, her cousin who is also her healthcare proxy. Per staff, covering provider, pt improved a little since admission: She is less tearful and no begging, getting on her knees with hands clapsed as she did on first day; -pt tolerating the vraylar which was increased to 3mg yesterday. pt remains tortured by worries, depression, indecisiveness...though a little less intensely so then on admission. Pt says it's very hard for her to do anything and she just wants to go lie in bed; however, she agrees to force herself to groups. Apologetically Rejects some activities recommended saying she's too anxious to attend. -cousin/HCP Sayda: gave hx -Says Haldol has historically worked the best; agrees with re-trial of Lamicta; continue w/ Vraylar -She voiced [facility] MRI concerns; typewriter ribbon winder able to read impression which does refer to lesion Right Frontal lobe (not in [facility]) 10/29 pt agrees she's doing a little better...says a little less anxious-maybe due to Vraylar; affect is more calm; agrees to continue -continues to feel depressed and struggles with both ocd-obsessional worries and indecisiveness (can't tolerate picking out menu, cloths...what to do w/ time). Agrees to restart Lamictal to help w/ OCD 10/31/23 CTP (started on vraylar and lamotrigine) 11/01/23 added gabapentin to see if more immediate effect- watch for sedation cortes combined with clonazepam- 11/01 still very anxious, paralyzed by indecision, depressed; increasing Vrayar 11/02 pt remains paralyzed by her worries, fearful, tearful; expresses frustration/shame at struggles making choices overwhelmed at thought of choosing cloths, food off the menu. discussed med management and pt agrees to try Trileptal to see if it can help w/ anxiety given that Lamictal takes a while to reach therapeutic dose. -medication alone will not be enough to stabilize patient: -Team/OT discussed and created extensive behavioral/therapeutic CBT based plan which includes gradually increased tasks including picking foods off simplified menu, slowly adding choice of cloths... 11/03: continue current tx plan. 11/04 remains very anixous, paralyzed by OCD symptoms rendering unable to make decisions w/out extreme stress and anxiety; seems that Thorazine prn has lowered a little anxiety so will add to regimen. Pt now on 3 antipsychotics; she is miserable, suffering and tying to find regimen that works; will aim to eliminate one antipsychotic but for time being trying to get pt relief from overwhelming anxiety. Increasing Trileptal to 300mg BID. Not sure that Vraylar is helping but will keep for now. 11/05 Patient remains severely disabled by anxiety, walking up and down the [place] in tears, talking about how she is afraid. Patient benefited from Thorazine 75 mg which did reduce her anxiety considerably though only temporarily. -Discussed case with Dr. Bryant who treated patient in the past though her symptoms were similarly very difficult to treat, he thought she improved on combination of clozapine, Haldol, Depakote and propranolol. Also agreed with titrating Trileptal for anxiety and which is used in some cases for carrol. Clozaril and Depakote or currently on hold, given some side effects and inconvenience; propranolol as an option. -Vraylar has not seemed to help so will likely DC now that Thorazine has proven somewhat helpful; increasing Trileptal; considering scheduling Thorazine 11/06 Ever so slightly better. Patient remains very anxious and with much difficulty getting dressed her making any decisions. However her affect is a little less anxious and her cousin who visited today agrees. Discussed medication regimen at length and agreed to continue on current treatment plan. Patient had what looked like a dystonic reaction however she kept saying it was just that her tongue was dry. Gave patient Benadryl 50 mg which to typewriter ribbon winder, seemed to make it better however patient did not think so. She is on Cogentin 1 mg b.i.d. which ostensibly should prevent dystonia however it is still unclear to typewriter ribbon winder what occurred today. Cousin said that this happens from time to time and she has understood it to be dry mouth secondary to medication. Tip Out Worker educated both on the side effect of dystonia for which they will monitor. -will add Benadryl 50 mg as a p.r.n. in case of dystonic reaction 11/07 same presentation; no tongue/mouth issues 11/08 Patient remains with considerable struggles completing tasks, dealing with a close due to excessive worrying. Discussed medication regimen and now that patient seems to have stabilized some discussing whether to start TCA for OCD. Patient has decompensated with SSRIs and there remain some risk with TCAs as well, however OCD symptoms are crippling and patient is desperate for relief. -consulting with Dr. Bryant; will reach out to outpatient provider to get additional history on medication trials CONSIDER: Scheduling Thorazine; propranolol; maximizing Trileptal, Zyprexa, low-dose Depakote... TCA clomipramine Plan CV Q 15 Add Benadryl 50 mg p.r.n. for dystonia -Continue Thorazine 50mg TID PRN for anxiety/agitation (will dc haldol prn and hydroxyzine prn since not helping) -Continue Thorazine 50mg TiD -continue haldol dec 100mg IM due November 10 -continue gabapentin to 300mg TId to see if can help with anxiety (started for foot pain, however, pain is new, from walking halls) -Continue Trileptal 300mg t.i.d. for anxiety; will titrate; not sure if will be helpful, but few options left to address anxiety as Vraylar/lamictal become theapeutic -continue Lamictal 25mg qhs -working with OT for help with CBT -DC Vraylar 4.5mg has not seem to help -look further into MRI impression -DC'd Prozac concern for bipolar disorder, dry mouth -Neurology/EEG: Previously she has reported some symptoms suggestive of complex partial seizures and had mildly abnormal EEG. At this time her presentation was different but I would suggest obtaining an EEG again. In addition, if a mood stabilizer is needed, I would recommend using lamotrigine, topiramate, or valproic acid. -Neurology consult 10/24 Dr. Ma, 47 years old woman admitted in hospital with severe depression and self-harm type of behavior. Couple of years ago she was admitted in hospital and reported episodes of her patel type of feeling going to her head lasting for seconds to minutes. At that time an EEG revealed left temporal sharp waves. CT scan and MRI of brain were okay. -however, [facility] MRI concerns; typewriter ribbon winder able to read impression from [facility] 09/17/23 which does refer to lesion Right Frontal lobe (not [facility]); will discuss with neuro Med trials: Haldol: worked the best ! Lamictal: did not seem to help, but...may have been too low a dose Fluvoxamine? not sure if helpful ECT: no help; memory loss Vraylar 4.5mg has not seemed to help Clozapine: did not tolerate frequent blood draws abilify: severe restlessness Risperdal: severe restlessness [facility]-Neon: bed-wetting; not sure if helped Depakote: muscle cramps, restless... Latuda: TD Seroquel 50 mg Q 4 p.r.n. (makes aggressive) Nuedexta (Dextromethorphan /Quinidine) for uncontrollable crying/laughing Oxybutynin 10 mg Propranolol 20 mg t.i.d. hx: -Psych admission 2019 [facility] -[facility] year 2019- did ok, ups/downs; lots of med changes -Home with Cousin 2020-current: past 2.5 years overall good enough, lots of up/downs and med changes BETH and some trouble breathing? Seratonin Syndrom on some meds for depression? (not sure details) -Thinks recent decomp result of adding Paxil which caused high irritability/manic/obsessive and then Prozac which caused the same; since then, outpt provider trying to do a reset on meds... Says when at home w/ Cousin, ups/downs but was able to overall function at home with sufficient good enough periods where she'd go out and do activities (with help), put on makeup, enjoy things...Sayda reports constant medication changes making it difficult to know what meds worked or at least were partially helpful...wonders that during down times, it would be better to just wait it out rather than make med changes. Thinks recent decomp result of adding Paxil which caused high irritability/manic/obsessive and then Prozac which caused the same; since then, outpt provider trying to do a reset on meds.. Patient educated on: diagnosis and medication risk/benefits Informed Consent: understands Reason for continued inpatient stay Substantial Risk for: inability to function Time Spent With Patient Time: Total time managing care of this patient today ____ minutes.
[2023-11-09 18:00] VITALS: BP 126/83; PULSE 98; TEMP 36
[2023-11-09] MEDS: lamoTRIgine 25 MG TABLET PO (20:56)
[2023-11-09] MEDS: Acetaminophen 325 MG TABLET 650 MG PO (21:48)
[2023-11-10] MEDS: Omeprazole 20 MG CAPSULE.DR PO (05:05)
[2023-11-10] MEDS: Levothyroxine Sodium 75 MCG TABLET PO (05:05)
[2023-11-10 07:54] VITALS: BP 126/80; PULSE 110; RESP 18; TEMP 36.2; O2SAT 98
[2023-11-10] MEDS: Benztropine Mesylate 1 MG TABLET PO ×2 (08:27→21:28)
[2023-11-10] MEDS: Cholecalciferol (Vitamin D3) 25 MCG TABLET PO (08:27)
[2023-11-10] MEDS: OXcarbazepine 300 MG TABLET PO ×3 (08:28→21:29)
[2023-11-10] MEDS: Gabapentin 300 MG CAPSULE PO ×3 (08:28→21:28)
[2023-11-10] MEDS: chlorproMAZINE HCl 25 MG TABLET 50 MG PO ×3 (08:28→21:29)
[2023-11-10] MEDS: clonazePAM 1 MG TABLET PO (09:33)
--- NOTE | 2023-11-10 09:33 | HO.PSYCHPN ---
Subjective Subjective Date of Service: 11/10/23 Reason For Visit: Bipolar Disorder Interim History: met with patient; discussed with team Patient doing a little better and actually smiling and laughing some while talking with advertising copywriter. Still gets very anxious when talking about dealing with her clothes/laundry but can pull herself out of it a little faster than before. Patient said she is pretty anxious about returning to her sister/cousin's house. She loves her cousin but can get very frustrated there; patient becomes tearful thinking about it. Discussed medication and ambivalence about whether to add clomipramine. Patient is doing a little better but still remains quite paralyzed by her excessive OCD type worries. Patient agrees to trial to see how it goes Mental Status Exam Mental Status Exam Narrative: Pt is alert and oriented; behavior a little more relaxed, able to smile and laugh a bit; still easily breaks down into tears at times; cooperative;dressed in casual attire with good hygiene; mood is described as ok and affect a little brighter; somewhat anxious but less so; eye contact appropriate; Speech is normal rate, volume and prosody and not pressured; both psychomotor agitation intermittently present; thought process is organized and goal directed; Thought content is on OCD struggles, fearfulness, anxiety, tx; otherwise pertinent to relevant topics and without any delusional content, paranoid ideations or grandiosity; denies any SI/HI. There is no evidence of perceptual disturbance. Patients insight and judgment impaired Diagnostics Vital Signs (24Hr): Vital Signs - 24 hr 11/09/23 18:00 11/10/23 07:54 Temperature 96.8 F 97.1 F Pulse Rate 98 110 H Respiratory Rate 18 Blood Pressure 126/83 126/80 Pulse Oximetry 98 Oxygen Delivery Method Room Air BMI result Body Mass Index 32.6 Labs 10/20/23 20:19 10/20/23 20:19 Medications Medications Current Medications Acetaminophen (Acetaminophen 325 Mg Tablet) 650 mg PO Q6H PRN PRN Reason: Headache/Pain Mild Scale (1-3) Last Admin: 11/09/23 21:48 Dose: 650 mg Al Hydroxide/Mg Hydroxide (Magnesium Hydrox/Alum Hydrox 30 Ml Oral.Susp) 30 ml PO Q6H PRN PRN Reason: Heartburn/Nausea Last Admin: 10/27/23 13:38 Dose: 30 ml Benztropine Mesylate (Benztropine Mesylate 1 Mg Tablet) 1 mg PO BID [facility] Last Admin: 11/10/23 08:27 Dose: 1 mg Chlorpromazine HCl (Chlorpromazine Hcl 25 Mg Tablet) 50 mg PO TID [facility] Last Admin: 11/10/23 08:28 Dose: 50 mg Chlorpromazine HCl (Chlorpromazine Hcl 25 Mg Tablet) 50 mg PO QID PRN PRN Reason: anxiety/agitation Clonazepam (Clonazepam 1 Mg Tablet) 1 mg PO TID PRN PRN Reason: panic attack Last Admin: 11/10/23 09:33 Dose: 1 mg Diphenhydramine HCl (Diphenhydramine Hcl 25 Mg Capsule) 50 mg PO Q6H PRN PRN Reason: DYStonia Last Admin: 11/07/23 19:30 Dose: 50 mg Gabapentin (Gabapentin 300 Mg Capsule) 300 mg PO TID [facility] Last Admin: 11/10/23 08:28 Dose: 300 mg Haloperidol Decanoate (Haloperidol Decanoate 50 Mg/Ml Vial) 100 mg IM Q28D [facility] Lamotrigine (Lamotrigine 25 Mg Tablet) 25 mg PO BEDTIME [facility] Last Admin: 11/09/23 20:56 Dose: 25 mg Levothyroxine Sodium (Levothyroxine Sodium 75 Mcg Tablet) 75 mcg PO DAILY@629 [facility] Last Admin: 11/10/23 05:05 Dose: 75 mcg Magnesium Hydroxide (Milk Of Magnesia 30 Ml Oral.Susp) 30 ml PO DAILY PRN PRN Reason: Constipation Last Admin: 11/03/23 05:11 Dose: 30 ml Omeprazole (Omeprazole 20 Mg Capsule.Dr) 20 mg PO DAILY@30 [facility] Last Admin: 11/10/23 05:05 Dose: 20 mg Oxcarbazepine (Oxcarbazepine 300 Mg Tablet) 300 mg PO TID [facility] Last Admin: 11/10/23 08:28 Dose: 300 mg Trazodone HCl (Trazodone Hcl 50 Mg Tablet) 50 mg PO BEDTIME MRX1 PRN PRN Reason: Insomnia Last Admin: 11/05/23 19:47 Dose: 50 mg Vitamin D (Cholecalciferol (Vitamin D3) 25 Mcg Tablet) 25 mcg PO DAILY [facility] Last Admin: 11/10/23 08:27 Dose: 25 mcg Allergies Allergies Allergy/AdvReac Type Severity Reaction Status Date / Time aripiprazole Allergy Mild Unknown Verified 10/07/23 07:50 bupropion AdvReac Unknown Verified 10/07/23 07:50 divalproex sodium AdvReac Unknown Verified 10/07/23 07:50 [From Depakote] risperidone AdvReac Unknown Verified 10/07/23 07:50 Assessment & Plan Assessment & Plan (1) Bipolar 1 disorder, mixed: Status: Acute Code(s): F31.60 - Bipolar disorder, current episode mixed, unspecified Assessment and Plan: 11/01/23 discussed trying gabapentin, tried to review prior hx of this but seems like hx is archived or I couldn't figure out how to access it- (2) OCD (obsessive compulsive disorder): Qualifiers: Obsessive-compulsive disorder type: mixed obsessional thoughts and acts Qualified Code(s): F42.2 - Mixed obsessional thoughts and acts Status: Acute Code(s): F42.9 - Obsessive-compulsive disorder, unspecified (3) Abnormal EEG: Status: Acute Code(s): R94.01 - Abnormal electroencephalogram [EEG] Assessment and Plan: 47 years old woman who was admitted in hospital with severe depression. Previously she has reported some symptoms suggestive of complex partial seizures and had mildly abnormal EEG. At this time her presentation was different but I would suggest obtaining an EEG again. In addition, if a mood stabilizer is needed, I would recommend using lamotrigine, topiramate, or valproic acid. (4) History of electroconvulsive therapy: Status: Acute Code(s): Z98.890 - Other specified postprocedural states Assessment and Plan: Pt reports this didn't help her last time she tried Plan 47 yo woman with chronic Bipolar Disorder and OCD with severe anxiety and restlessness, intrusive behavior, ruminating and pacing in need of hospital treatment admitted on CV to [facility]. Impression/decision making: History of difficult to treat bipolar depression, OCD. Haldol has been helpful and pt will continue on it, but many other failed med trials including antipsychotics, mood stabilizers and SSRI's; ECT in past not helpful (maybe because hard to get good seizure since on benzos/depakote?). Pt started on Vraylar for bipolar depression and Lamictal for OCD (and depression/anxiety). Hospital course: 10/24: Neurology saw patient recommended repeat EEG. ?ECT. Clarify Depakote allergy. 10/26: Continue current management and treatment plan. Repeat EEG pending. telephone call to coutricia Alfredo and email to arrange a time to talk with her about medication reactions as pt does not recall; increase vraylar to 3mg daily 10/27 continue plan; waiting to hear back from Sayda re medication reaction but have the list of meds with which she had poor reactions. consider increase vraylar if needed and consider scheduled clonazepam; Sayda (cousin) reports pt has a referral to [facility] neurology already for after care but no appt yet. 10/28 Patient tearful, hard to express herself through emotions; saying that she is scared she will never get better, trying to push herself to go to groups... She is following staff's recommendations at behavioral activation however it is also causing her some stress as she can not tell how long she supposed to be out of her room, engaged with others feeling very unable to decide how much time she should be allowed to stay in her room by herself.... Third Grade Teacher tried to talk this through with her but patient had a hard time discussing therapeutic approaches to to her emotionality. That said, patient feels somewhat improved since she 1st came in and said that she is feeling so-so in addition to being scared and anxious. She does say however that she is suffering which is apparent. -Patient said that the last time she was hospitalized was in 2019 and when discharged, was overall feeling that she was doing pretty well. Discussed medication regimen and patient is not sure why medications were changed over these years but she agrees to get back on past regimen; also discussed ECT but patient can not remember if she thought this was helpful or not. Patient gave permission to talk to her provider, her cousin who is also her healthcare proxy. Per staff, covering provider, pt improved a little since admission: She is less tearful and no begging, getting on her knees with hands clapsed as she did on first day; -pt tolerating the vraylar which was increased to 3mg yesterday. pt remains tortured by worries, depression, indecisiveness...though a little less intensely so then on admission. Pt says it's very hard for her to do anything and she just wants to go lie in bed; however, she agrees to force herself to groups. Apologetically Rejects some activities recommended saying she's too anxious to attend. -cousin/HCP Sayda: gave hx -Says Haldol has historically worked the best; agrees with re-trial of Lamicta; continue w/ Vraylar -She voiced [facility] MRI concerns; advertising copywriter able to read impression which does refer to lesion Right Frontal lobe (not in meditech) 10/29 pt agrees she's doing a little better...says a little less anxious-maybe due to Vraylar; affect is more calm; agrees to continue -continues to feel depressed and struggles with both ocd-obsessional worries and indecisiveness (can't tolerate picking out menu, cloths...what to do w/ time). Agrees to restart Lamictal to help w/ OCD 10/31/23 CTP (started on vraylar and lamotrigine) 11/01/23 added gabapentin to see if more immediate effect- watch for sedation cortes combined with clonazepam- 11/01 still very anxious, paralyzed by indecision, depressed; increasing Vrayar 11/02 pt remains paralyzed by her worries, fearful, tearful; expresses frustration/shame at struggles making choices overwhelmed at thought of choosing cloths, food off the menu. discussed med management and pt agrees to try Trileptal to see if it can help w/ anxiety given that Lamictal takes a while to reach therapeutic dose. -medication alone will not be enough to stabilize patient: -Team/OT discussed and created extensive behavioral/therapeutic CBT based plan which includes gradually increased tasks including picking foods off simplified menu, slowly adding choice of cloths... 11/03: continue current tx plan. 11/04 remains very anixous, paralyzed by OCD symptoms rendering unable to make decisions w/out extreme stress and anxiety; seems that Thorazine prn has lowered a little anxiety so will add to regimen. Pt now on 3 antipsychotics; she is miserable, suffering and tying to find regimen that works; will aim to eliminate one antipsychotic but for time being trying to get pt relief from overwhelming anxiety. Increasing Trileptal to 300mg BID. Not sure that Vraylar is helping but will keep for now. 11/05 Patient remains severely disabled by anxiety, walking up and down the [place]lejas in tears, talking about how she is afraid. Patient benefited from Thorazine 75 mg which did reduce her anxiety considerably though only temporarily. -Discussed case with Dr. Bryant who treated patient in the past though her symptoms were similarly very difficult to treat, he thought she improved on combination of clozapine, Haldol, Depakote and propranolol. Also agreed with titrating Trileptal for anxiety and which is used in some cases for carrol. Clozaril and Depakote or currently on hold, given some side effects and inconvenience; propranolol as an option. -Vraylar has not seemed to help so will likely DC now that Thorazine has proven somewhat helpful; increasing Trileptal; considering scheduling Thorazine 11/06 Ever so slightly better. Patient remains very anxious and with much difficulty getting dressed her making any decisions. However her affect is a little less anxious and her cousin who visited today agrees. Discussed medication regimen at length and agreed to continue on current treatment plan. Patient had what looked like a dystonic reaction however she kept saying it was just that her tongue was dry. Gave patient Benadryl 50 mg which to advertising copywriter, seemed to make it better however patient did not think so. She is on Cogentin 1 mg b.i.d. which ostensibly should prevent dystonia however it is still unclear to advertising copywriter what occurred today. Cousin said that this happens from time to time and she has understood it to be dry mouth secondary to medication. Third Grade Teacher educated both on the side effect of dystonia for which they will monitor. -will add Benadryl 50 mg as a p.r.n. in case of dystonic reaction 11/07 same presentation; no tongue/mouth issues 11/08 Patient remains with considerable struggles completing tasks, dealing with a close due to excessive worrying. Discussed medication regimen and now that patient seems to have stabilized some discussing whether to start TCA for OCD. Patient has decompensated with SSRIs and there remain some risk with TCAs as well, however OCD symptoms are crippling and patient is desperate for relief. -consulting with Dr. Bryatn; will reach out to outpatient provider to get additional history on medication trials 11/09 Patient doing a little better and actually smiling and laughing some while talking with advertising copywriter. Still gets very anxious when talking about dealing with her clothes/laundry but can pull herself out of it a little faster than before. Patient said she is pretty anxious about returning to her sister/cousin's house. She loves her cousin but can get very frustrated there; patient becomes tearful thinking about it. Discussed medication and ambivalence about whether to add clomipramine. Patient is doing a little better but still remains quite paralyzed by her excessive OCD type worries. Patient agrees to trial to see how it goes CONSIDER: Scheduling Thorazine; propranolol; maximizing Trileptal, Zyprexa, low-dose Depakote... TCA clomipramine Plan CV Q 15 START Clomipramine 25mg qhs for continued OCD symptoms; will monitor closely to see if patient tolerates -continue Benadryl 50 mg p.r.n. for dystonia -Continue Thorazine 50mg TID PRN for anxiety/agitation (will dc haldol prn and hydroxyzine prn since not helping) -Continue Thorazine 50mg TiD -continue haldol dec 100mg IM due November 10 -continue gabapentin to 300mg TId to see if can help with anxiety (started for foot pain, however, pain is new, from walking halls) -Continue Trileptal 300mg t.i.d. for anxiety; will titrate; not sure if will be helpful, but few options left to address anxiety as Vraylar/lamictal become theapeutic -continue Lamictal 25mg qhs -working with OT for help with CBT -DC Vraylar 4.5mg has not seem to help -look further into MRI impression -DC'd Prozac concern for bipolar disorder, dry mouth -Neurology/EEG: Previously she has reported some symptoms suggestive of complex partial seizures and had mildly abnormal EEG. At this time her presentation was different but I would suggest obtaining an EEG again. In addition, if a mood stabilizer is needed, I would recommend using lamotrigine, topiramate, or valproic acid. -Neurology consult 10/24 Dr. Ma, 47 years old woman admitted in hospital with severe depression and self-harm type of behavior. Couple of years ago she was admitted in hospital and reported episodes of her patel type of feeling going to her head lasting for seconds to minutes. At that time an EEG revealed left temporal sharp waves. CT scan and MRI of brain were okay. -however, [facility] MRI concerns; advertising copywriter able to read impression from [facility] 09/17/23 which does refer to lesion Right Frontal lobe (not in meditech); will discuss with neuro Med trials: Haldol: worked the best ! Lamictal: did not seem to help, but...may have been too low a dose Fluvoxamine? not sure if helpful ECT: no help; memory loss Vraylar 4.5mg has not seemed to help Clozapine: did not tolerate frequent blood draws abilify: severe restlessness Risperdal: severe restlessness [place]: bed-wetting; not sure if helped Depakote: muscle cramps, restless... Latuda: TD Seroquel 50 mg Q 4 p.r.n. (makes aggressive) Nuedexta (Dextromethorphan /Quinidine) for uncontrollable crying/laughing Oxybutynin 10 mg Propranolol 20 mg t.i.d. hx: -Psych admission 2019 [place] -[facility]idential for 1 year 2019- did ok, ups/downs; lots of med changes -Home with Cousin 2020-current: past 2.5 years overall good enough, lots of up/downs and med changes BETH and some trouble breathing? Seratonin Syndrom on some meds for depression? (not sure details) -Thinks recent decomp result of adding Paxil which caused high irritability/manic/obsessive and then Prozac which caused the same; since then, outpt provider trying to do a reset on meds... Says when at home w/ Cousin, ups/downs but was able to overall function at home with sufficient good enough periods where she'd go out and do activities (with help), put on makeup, enjoy things...Sayda reports constant medication changes making it difficult to know what meds worked or at least were partially helpful...wonders that during down times, it would be better to just wait it out rather than make med changes. Thinks recent decomp result of adding Paxil which caused high irritability/manic/obsessive and then Prozac which caused the same; since then, outpt provider trying to do a reset on meds.. Patient educated on: diagnosis, medication risk/benefits and therapeutic strategies Informed Consent: understands Reason for continued inpatient stay Substantial Risk for: rapid decompensation Time Spent With Patient Time: Total time managing care of this patient today ____ minutes.
[2023-11-10 18:00] VITALS: BP 115/74; PULSE 80; TEMP 36.1; O2SAT 98
[2023-11-10] MEDS: lamoTRIgine 25 MG TABLET PO (21:28)
[2023-11-10] MEDS: clomiPRAMINE HCl 25 MG CAPSULE PO (21:28)
[2023-11-11] MEDS: Levothyroxine Sodium 75 MCG TABLET PO (05:57)
[2023-11-11] MEDS: Omeprazole 20 MG CAPSULE.DR PO (05:57)
[2023-11-11 07:45] VITALS: BP 117/77; PULSE 110; RESP 18; TEMP 35.9; O2SAT 100
[2023-11-11] MEDS: Gabapentin 300 MG CAPSULE PO ×3 (08:53→21:44)
[2023-11-11] MEDS: Cholecalciferol (Vitamin D3) 25 MCG TABLET PO (08:53)
[2023-11-11] MEDS: OXcarbazepine 300 MG TABLET PO ×3 (08:53→21:44)
[2023-11-11] MEDS: Benztropine Mesylate 1 MG TABLET PO ×2 (08:53→21:46)
[2023-11-11] MEDS: chlorproMAZINE HCl 25 MG TABLET 50 MG PO ×3 (08:57→21:45)
--- NOTE | 2023-11-11 10:00 | P.PNPSI_ITS ---
Subjective Subjective Date of Service: 11/11/23 Reason For Visit: Bipolar Disorder Interim History: Met with patient; discussed with team Little more tearful today, little more distressed about clothing, complaining about anxiety surrounding having to launder her clothing. Mental Status Exam Mental Status Exam Narrative: Pt is alert and oriented; behavior a little more tearful and anxious today; cooperative;dressed in casual attire with good hygiene; mood is described as upset and affect congruent, tearful; eye contact appropriate; Speech is normal rate, volume and prosody and not pressured; both psychomotor agitation intermittently present; thought process is organized and goal directed; Thought content is on OCD struggles, fearfulness, anxiety, tx; otherwise pertinent to relevant topics and without any delusional content, paranoid ideations or grandiosity; denies any SI/HI. There is no evidence of perceptual disturbance. Patients insight and judgment impaired Diagnostics Vital Signs (24Hr): Vital Signs - 24 hr 11/10/23 18:00 11/11/23 07:45 Temperature 96.9 F 96.7 F L Pulse Rate 80 110 H Respiratory Rate 18 Blood Pressure 115/74 117/77 Pulse Oximetry 98 100 Oxygen Delivery Method Room Air Room Air BMI result Body Mass Index 32.6 Labs 10/20/23 20:19 10/20/23 20:19 Medications Medications Current Medications Acetaminophen (Acetaminophen 325 Mg Tablet) 650 mg PO Q6H PRN PRN Reason: Headache/Pain Mild Scale (1-3) Last Admin: 11/09/23 21:48 Dose: 650 mg Al Hydroxide/Mg Hydroxide (Magnesium Hydrox/Alum Hydrox 30 Ml Oral.Susp) 30 ml PO Q6H PRN PRN Reason: Heartburn/Nausea Last Admin: 10/27/23 13:38 Dose: 30 ml Benztropine Mesylate (Benztropine Mesylate 1 Mg Tablet) 1 mg PO BID [facility] Last Admin: 11/11/23 08:53 Dose: 1 mg Chlorpromazine HCl (Chlorpromazine Hcl 25 Mg Tablet) 50 mg PO TID [facility] Last Admin: 11/11/23 08:57 Dose: 50 mg Chlorpromazine HCl (Chlorpromazine Hcl 25 Mg Tablet) 50 mg PO QID PRN PRN Reason: anxiety/agitation Clomipramine HCl (Clomipramine Hcl 25 Mg Capsule) 25 mg PO BEDTIME [facility] Last Admin: 11/10/23 21:28 Dose: 25 mg Clonazepam (Clonazepam 1 Mg Tablet) 1 mg PO TID PRN PRN Reason: panic attack Last Admin: 11/10/23 09:33 Dose: 1 mg Diphenhydramine HCl (Diphenhydramine Hcl 25 Mg Capsule) 50 mg PO Q6H PRN PRN Reason: DY[place] Last Admin: 11/07/23 19:30 Dose: 50 mg Gabapentin (Gabapentin 300 Mg Capsule) 300 mg PO TID [facility] Last Admin: 11/11/23 08:53 Dose: 300 mg Haloperidol Decanoate (Haloperidol Decanoate 50 Mg/Ml Vial) 100 mg IM Q28D [facility] Lamotrigine (Lamotrigine 25 Mg Tablet) 25 mg PO BEDTIME [facility] Last Admin: 11/10/23 21:28 Dose: 25 mg Levothyroxine Sodium (Levothyroxine Sodium 75 Mcg Tablet) 75 mcg PO DAILY@0630 [facility] Last Admin: 11/11/23 05:57 Dose: 75 mcg Magnesium Hydroxide (Milk Of Magnesia 30 Ml Oral.Susp) 30 ml PO DAILY PRN PRN Reason: Constipation Last Admin: 11/03/23 05:11 Dose: 30 ml Omeprazole (Omeprazole 20 Mg Capsule.Dr) 20 mg PO DAILY@0630 [facility] Last Admin: 11/11/23 05:57 Dose: 20 mg Oxcarbazepine (Oxcarbazepine 300 Mg Tablet) 300 mg PO TID [facility] Last Admin: 11/11/23 08:53 Dose: 300 mg Trazodone HCl (Trazodone Hcl 50 Mg Tablet) 50 mg PO BEDTIME MRX1 PRN PRN Reason: Insomnia Last Admin: 11/05/23 19:47 Dose: 50 mg Vitamin D (Cholecalciferol (Vitamin D3) 25 Mcg Tablet) 25 mcg PO DAILY [facility] Last Admin: 11/11/23 08:53 Dose: 25 mcg Allergies Allergies Allergy/AdvReac Type Severity Reaction Status Date / Time aripiprazole Allergy Mild Unknown Verified 10/07/23 07:50 bupropion AdvReac Unknown Verified 10/07/23 07:50 divalproex sodium AdvReac Unknown Verified 10/07/23 07:50 [From Depakote] risperidone AdvReac Unknown Verified 10/07/23 07:50 Assessment & Plan Assessment & Plan (1) Bipolar 1 disorder, mixed: Status: Acute Code(s): F31.60 - Bipolar disorder, current episode mixed, unspecified Assessment and Plan: 11/01/23 discussed trying gabapentin, tried to review prior hx of this but seems like hx is archived or I couldn't figure out how to access it- (2) OCD (obsessive compulsive disorder): Qualifiers: Obsessive-compulsive disorder type: mixed obsessional thoughts and acts Qualified Code(s): F42.2 - Mixed obsessional thoughts and acts Status: Acute Code(s): F42.9 - Obsessive-compulsive disorder, unspecified (3) Abnormal EEG: Status: Acute Code(s): R94.01 - Abnormal electroencephalogram [EEG] Assessment and Plan: 47 years old woman who was admitted in hospital with severe depression. Previously she has reported some symptoms suggestive of complex partial seizures and had mildly abnormal EEG. At this time her presentation was different but I would suggest obtaining an EEG again. In addition, if a mood stabilizer is needed, I would recommend using lamotrigine, topiramate, or valproic acid. (4) History of electroconvulsive therapy: Status: Acute Code(s): Z98.890 - Other specified postprocedural states Assessment and Plan: Pt reports this didn't help her last time she tried Plan 47 yo woman with chronic Bipolar Disorder and OCD with severe anxiety and restlessness, intrusive behavior, ruminating and pacing in need of hospital treatment admitted on CV to [facility]. Impression/decision making: History of difficult to treat bipolar depression, OCD. Haldol has been helpful and pt will continue on it, but many other failed med trials including antipsychotics, mood stabilizers and SSRI's; ECT in past not helpful (maybe because hard to get good seizure since on benzos/depakote?). Pt started on Vraylar for bipolar depression and Lamictal for OCD (and depression/anxiety). Hospital course: 10/24: Neurology saw patient recommended repeat EEG. ?ECT. Clarify Depakote allergy. 10/26: Continue current management and treatment plan. Repeat EEG pending. telephone call to cousin Sayda and email to arrange a time to talk with her about medication reactions as pt does not recall; increase vraylar to 3mg daily 10/27 continue plan; waiting to hear back from Sayda re medication reaction but have the list of meds with which she had poor reactions. consider increase vraylar if needed and consider scheduled clonazepam; Sayda (cousin) reports pt has a referral to [facility] neurology already for after care but no appt yet. 10/28 Patient tearful, hard to express herself through emotions; saying that she is scared she will never get better, trying to push herself to go to groups... She is following staff's recommendations at behavioral activation however it is also causing her some stress as she can not tell how long she supposed to be out of her room, engaged with others feeling very unable to decide how much time she should be allowed to stay in her room by herself.... 911 Dispatcher tried to talk this through with her but patient had a hard time discussing therapeutic approaches to to her emotionality. That said, patient feels somewhat improved since she 1st came in and said that she is feeling so-so in addition to being scared and anxious. She does say however that she is suffering which is apparent. -Patient said that the last time she was hospitalized was in 2019 and when discharged, was overall feeling that she was doing pretty well. Discussed medication regimen and patient is not sure why medications were changed over these years but she agrees to get back on past regimen; also discussed ECT but patient can not remember if she thought this was helpful or not. Patient gave permission to talk to her provider, her cousin who is also her healthcare proxy. Per staff, covering provider, pt improved a little since admission: She is less tearful and no begging, getting on her knees with hands clapsed as she did on first day; -pt tolerating the vraylar which was increased to 3mg yesterday. pt remains tortured by worries, depression, indecisiveness...though a little less intensely so then on admission. Pt says it's very hard for her to do anything and she just wants to go lie in bed; however, she agrees to force herself to groups. Apologetically Rejects some activities recommended saying she's too anxious to attend. -cousin/HCP Sayda: gave hx -Says Haldol has historically worked the best; agrees with re-trial of Lamicta; continue w/ Vraylar -She voiced [facility] MRI concerns; commercial lines underwriter able to read impression which does refer to lesion Right Frontal lobe (not in [facility]) 10/29 pt agrees she's doing a little better...says a little less anxious-maybe due to Vraylar; affect is more calm; agrees to continue -continues to feel depressed and struggles with both ocd-obsessional worries and indecisiveness (can't tolerate picking out menu, cloths...what to do w/ time). Agrees to restart Lamictal to help w/ OCD 10/31/23 CTP (started on vraylar and lamotrigine) 11/01/23 added gabapentin to see if more immediate effect- watch for sedation cortes combined with clonazepam- 11/01 still very anxious, paralyzed by indecision, depressed; increasing Vrayar 11/02 pt remains paralyzed by her worries, fearful, tearful; expresses frustration/shame at struggles making choices overwhelmed at thought of choosing cloths, food off the menu. discussed med management and pt agrees to try Trileptal to see if it can help w/ anxiety given that Lamictal takes a while to reach therapeutic dose. -medication alone will not be enough to stabilize patient: -Team/OT discussed and created extensive behavioral/therapeutic CBT based plan which includes gradually increased tasks including picking foods off simplified menu, slowly adding choice of cloths... 11/03: continue current tx plan. 11/04 remains very anixous, paralyzed by OCD symptoms rendering unable to make decisions w/out extreme stress and anxiety; seems that Thorazine prn has lowered a little anxiety so will add to regimen. Pt now on 3 antipsychotics; she is miserable, suffering and tying to find regimen that works; will aim to eliminate one antipsychotic but for time being trying to get pt relief from overwhelming anxiety. Increasing Trileptal to 300mg BID. Not sure that Vraylar is helping but will keep for now. 11/05 Patient remains severely disabled by anxiety, walking up and down the [place] in tears, talking about how she is afraid. Patient benefited from Thorazine 75 mg which did reduce her anxiety considerably though only temporarily. -Discussed case with Dr. Bryant who treated patient in the past though her symptoms were similarly very difficult to treat, he thought she improved on combination of clozapine, Haldol, Depakote and propranolol. Also agreed with titrating Trileptal for anxiety and which is used in some cases for carrol. Clozaril and Depakote or currently on hold, given some side effects and inconvenience; propranolol as an option. -Vraylar has not seemed to help so will likely DC now that Thorazine has proven somewhat helpful; increasing Trileptal; considering scheduling Thorazine 11/06 Ever so slightly better. Patient remains very anxious and with much difficulty getting dressed her making any decisions. However her affect is a little less anxious and her cousin who visited today agrees. Discussed medication regimen at length and agreed to continue on current treatment plan. Patient had what looked like a dystonic reaction however she kept saying it was just that her tongue was dry. Gave patient Benadryl 50 mg which to commercial lines underwriter, seemed to make it better however patient did not think so. She is on Cogentin 1 mg b.i.d. which ostensibly should prevent dystonia however it is still unclear to commercial lines underwriter what occurred today. Cousin said that this happens from time to time and she has understood it to be dry mouth secondary to medication. 911 Dispatcher educated both on the side effect of dystonia for which they will monitor. -will add Benadryl 50 mg as a p.r.n. in case of dystonic reaction 11/07 same presentation; no tongue/mouth issues 11/08 Patient remains with considerable struggles completing tasks, dealing with a close due to excessive worrying. Discussed medication regimen and now that patient seems to have stabilized some discussing whether to start TCA for OCD. Patient has decompensated with SSRIs and there remain some risk with TCAs as well, however OCD symptoms are crippling and patient is desperate for relief. -consulting with Dr. Bryant; will reach out to outpatient provider to get additional history on medication trials 11/09 Patient doing a little better and actually smiling and laughing some while talking with commercial lines underwriter. Still gets very anxious when talking about dealing with her clothes/laundry but can pull herself out of it a little faster than before. Patient said she is pretty anxious about returning to her sister/cousin's house. She loves her cousin but can get very frustrated there; patient becomes tearful thinking about it. Discussed medication and ambivalence about whether to add clomipramine. Patient is doing a little better but still remains quite paralyzed by her excessive OCD type worries. Patient agrees to trial to see how it goes 11/10 more tearful and anxious than yesterday CONSIDER: Scheduling Thorazine; propranolol; maximizing Trileptal, Zyprexa, low-dose Depakote... TCA clomipramine Plan CV Q 15 -continue Clomipramine 25mg qhs for continued OCD symptoms; will monitor closely to see if patient tolerates -continue Benadryl 50 mg p.r.n. for dystonia -Continue Thorazine 50mg TID PRN for anxiety/agitation (will dc haldol prn and hydroxyzine prn since not helping) -Continue Thorazine 50mg TiD -continue haldol dec 100mg IM received November 10 -continue gabapentin to 300mg TId to see if can help with anxiety (started for foot pain, however, pain is new, from walking halls) -Continue Trileptal 300mg t.i.d. for anxiety; will titrate; not sure if will be helpful, but few options left to address anxiety as Vraylar/lamictal become theapeutic -continue Lamictal 25mg qhs -working with OT for help with CBT -DC Vraylar 4.5mg has not seem to help -look further into MRI impression -DC'd Prozac concern for bipolar disorder, dry mouth -Neurology/EEG: Previously she has reported some symptoms suggestive of complex partial seizures and had mildly abnormal EEG. At this time her presentation was different but I would suggest obtaining an EEG again. In addition, if a mood stabilizer is needed, I would recommend using lamotrigine, topiramate, or valproic acid. -Neurology consult 10/24 Dr. Ma, 47 years old woman admitted in hospital with severe depression and self-harm type of behavior. Couple of years ago she was admitted in hospital and reported episodes of her patel type of feeling going to her head lasting for seconds to minutes. At that time an EEG revealed left temporal sharp waves. CT scan and MRI of brain were okay. -however, [facility] MRI concerns; commercial lines underwriter able to read impression from [facility] 09/17/23 which does refer to lesion Right Frontal lobe (not in [facility]); will discuss with neuro Med trials: Haldol: worked the best ! Lamictal: did not seem to help, but...may have been too low a dose Fluvoxamine? not sure if helpful ECT: no help; memory loss Vraylar 4.5mg has not seemed to help Clozapine: did not tolerate frequent blood draws abilify: severe restlessness Risperdal: severe restlessness [place]: bed-wetting; not sure if helped Depakote: muscle cramps, restless... Latuda: TD Seroquel 50 mg Q 4 p.r.n. (makes aggressive) Nuedexta (Dextromethorphan /Quinidine) for uncontrollable crying/laughing Oxybutynin 10 mg Propranolol 20 mg t.i.d. hx: -Psych admission 2019 [place] [facility] for 1 year 2019- did ok, ups/downs; lots of med changes -Home with Cousin 2020-current: past 2.5 years overall good enough, lots of up/downs and med changes BETH and some trouble breathing? Seratonin Syndrom on some meds for depression? (not sure details) -Thinks recent decomp result of adding Paxil which caused high irritability/manic/obsessive and then Prozac which caused the same; since then, outpt provider trying to do a reset on meds... Says when at home w/ Cousin, ups/downs but was able to overall function at home with sufficient good enough periods where she'd go out and do activities (with help), put on makeup, enjoy things...Sayda reports constant medication changes making it difficult to know what meds worked or at least were partially helpful...wonders that during down times, it would be better to just wait it out rather than make med changes. Thinks recent decomp result of adding Paxil which caused high irritability/manic/obsessive and then Prozac which caused the same; since then, outpt provider trying to do a reset on meds.. Patient educated on: diagnosis and medication risk/benefits Informed Consent: understands Reason for continued inpatient stay Substantial Risk for: inability to function Time Spent With Patient Time: Total time managing care of this patient today ____ minutes.
[2023-11-11] MEDS: Haloperidol Decanoate 50 MG/ML VIAL 100 MG IM (10:26)
[2023-11-11] MEDS: clonazePAM 1 MG TABLET PO (10:26)
[2023-11-11 18:00] VITALS: BP 123/76; PULSE 109; TEMP 36.6; O2SAT 100
[2023-11-11] MEDS: clomiPRAMINE HCl 25 MG CAPSULE PO (21:45)
[2023-11-11] MEDS: lamoTRIgine 25 MG TABLET PO (21:46)
[2023-11-12] MEDS: Levothyroxine Sodium 75 MCG TABLET PO (05:09)
[2023-11-12] MEDS: Omeprazole 20 MG CAPSULE.DR PO (05:09)
[2023-11-12 07:00] VITALS: BMI 33.9
[2023-11-12] MEDS: Gabapentin 300 MG CAPSULE PO ×3 (08:10→20:45)
[2023-11-12] MEDS: Benztropine Mesylate 1 MG TABLET PO ×2 (08:10→20:45)
[2023-11-12] MEDS: Cholecalciferol (Vitamin D3) 25 MCG TABLET PO (08:10)
[2023-11-12] MEDS: OXcarbazepine 300 MG TABLET PO ×3 (08:10→20:45)
[2023-11-12] MEDS: chlorproMAZINE HCl 25 MG TABLET 50 MG PO ×3 (08:10→20:45)
[2023-11-12 08:25] VITALS: BP 146/90; PULSE 105; RESP 18; TEMP 36.1; O2SAT 100
[2023-11-12] MEDS: clonazePAM 1 MG TABLET PO (14:02)
--- NOTE | 2023-11-12 15:44 | P.PNPSI_ITS ---
Subjective Subjective Date of Service: 11/12/23 Reason For Visit: Bipolar Disorder Interim History: met with patient; discussed with team Patient saying no one can help me Throughout the day pt crying so much, unable to have much of a discussion; beside herself regarding cloths (for which pt receives much help from staff). Discussed meds and she agrees to increase Lamictal. Mental Status Exam Mental Status Exam Narrative: Pt is alert and oriented; behavior excessively anxious and tearful; cooperative; dressed in casual attire with good hygiene; mood is described as upset and affect congruent, tearful; eye contact appropriate; Speech is normal rate, volume and prosody and not pressured; both psychomotor agitation intermittently present; thought process is organized and goal directed; Thought content is on OCD struggles, fearfulness, anxiety, tx; otherwise pertinent to relevant topics and without any delusional content, paranoid ideations or grandiosity; denies any SI/HI. There is no evidence of perceptual disturbance. Patients insight and judgment impaired Diagnostics Vital Signs (24Hr): Vital Signs - 24 hr 11/11/23 18:00 11/12/23 08:25 Temperature 97.9 F 97 F Pulse Rate 109 H 105 H Respiratory Rate 18 Blood Pressure 123/76 146/90 H Pulse Oximetry 100 100 Oxygen Delivery Method Room Air Room Air BMI result Body Mass Index 33.9 Labs 10/20/23 20:19 10/20/23 20:19 Medications Medications Current Medications Acetaminophen (Acetaminophen 325 Mg Tablet) 650 mg PO Q6H PRN PRN Reason: Headache/Pain Mild Scale (1-3) Last Admin: 11/09/23 21:48 Dose: 650 mg Al Hydroxide/Mg Hydroxide (Magnesium Hydrox/Alum Hydrox 30 Ml Oral.Susp) 30 ml PO Q6H PRN PRN Reason: Heartburn/Nausea Last Admin: 10/27/23 13:38 Dose: 30 ml Benztropine Mesylate (Benztropine Mesylate 1 Mg Tablet) 1 mg PO BID [facility] Last Admin: 11/12/23 08:10 Dose: 1 mg Chlorpromazine HCl (Chlorpromazine Hcl 25 Mg Tablet) 50 mg PO TID [facility] Last Admin: 11/12/23 14:26 Dose: 50 mg Chlorpromazine HCl (Chlorpromazine Hcl 25 Mg Tablet) 50 mg PO QID PRN PRN Reason: anxiety/agitation Clonazepam (Clonazepam 1 Mg Tablet) 1 mg PO TID PRN PRN Reason: panic attack Last Admin: 11/12/23 14:02 Dose: 1 mg Diphenhydramine HCl (Diphenhydramine Hcl 25 Mg Capsule) 50 mg PO Q6H PRN PRN Reason: DYStonia Last Admin: 11/07/23 19:30 Dose: 50 mg Gabapentin (Gabapentin 300 Mg Capsule) 300 mg PO TID [facility] Last Admin: 11/12/23 14:26 Dose: 300 mg Haloperidol Decanoate (Haloperidol Decanoate 50 Mg/Ml Vial) 100 mg IM Q28D [facility] Last Admin: 11/11/23 10:26 Dose: 100 mg Lamotrigine (Lamotrigine 25 Mg Tablet) 25 mg PO BEDTIME [facility] Stop: 11/13/23 21:00 Last Admin: 11/11/23 21:46 Dose: 25 mg Lamotrigine (Lamotrigine 25 Mg Tablet) 25 mg PO BID [facility] Levothyroxine Sodium (Levothyroxine Sodium 75 Mcg Tablet) 75 mcg PO DAILY@629 [facility] Last Admin: 11/12/23 05:09 Dose: 75 mcg Magnesium Hydroxide (Milk Of Magnesia 30 Ml Oral.Susp) 30 ml PO DAILY PRN PRN Reason: Constipation Last Admin: 11/03/23 05:11 Dose: 30 ml Omeprazole (Omeprazole 20 Mg Capsule.Dr) 20 mg PO DAILY@0630 [facility] Last Admin: 11/12/23 05:09 Dose: 20 mg Oxcarbazepine (Oxcarbazepine 300 Mg Tablet) 300 mg PO TID [facility] Last Admin: 11/12/23 14:26 Dose: 300 mg Trazodone HCl (Trazodone Hcl 50 Mg Tablet) 50 mg PO BEDTIME MRX1 PRN PRN Reason: Insomnia Last Admin: 11/05/23 19:47 Dose: 50 mg Vitamin D (Cholecalciferol (Vitamin D3) 25 Mcg Tablet) 25 mcg PO DAILY [facility] Last Admin: 11/12/23 08:10 Dose: 25 mcg Allergies Allergies Allergy/AdvReac Type Severity Reaction Status Date / Time aripiprazole Allergy Mild Unknown Verified 10/07/23 07:50 bupropion AdvReac Unknown Verified 10/07/23 07:50 divalproex sodium AdvReac Unknown Verified 10/07/23 07:50 [From Depakote] risperidone AdvReac Unknown Verified 10/07/23 07:50 Assessment & Plan Assessment & Plan (1) Bipolar 1 disorder, mixed: Status: Acute Code(s): F31.60 - Bipolar disorder, current episode mixed, unspecified Assessment and Plan: 11/01/23 discussed trying gabapentin, tried to review prior hx of this but seems like hx is archived or I couldn't figure out how to access it- (2) OCD (obsessive compulsive disorder): Qualifiers: Obsessive-compulsive disorder type: mixed obsessional thoughts and acts Qualified Code(s): F42.2 - Mixed obsessional thoughts and acts Status: Acute Code(s): F42.9 - Obsessive-compulsive disorder, unspecified (3) Abnormal EEG: Status: Acute Code(s): R94.01 - Abnormal electroencephalogram [EEG] Assessment and Plan: 47 years old woman who was admitted in hospital with severe depression. Previously she has reported some symptoms suggestive of complex partial seizures and had mildly abnormal EEG. At this time her presentation was different but I would suggest obtaining an EEG again. In addition, if a mood stabilizer is needed, I would recommend using lamotrigine, topiramate, or valproic acid. (4) History of electroconvulsive therapy: Status: Acute Code(s): Z98.890 - Other specified postprocedural states Assessment and Plan: Pt reports this didn't help her last time she tried Plan 47 yo woman with chronic Bipolar Disorder and OCD with severe anxiety and restlessness, intrusive behavior, ruminating and pacing in need of hospital treatment admitted on CV to [facility]. Impression/decision making: History of difficult to treat bipolar depression, OCD. Haldol has been helpful and pt will continue on it, but many other failed med trials including antipsychotics, mood stabilizers and SSRI's; ECT in past not helpful (maybe because hard to get good seizure since on benzos/depakote?). Pt started on Vraylar for bipolar depression and Lamictal for OCD (and depression/anxiety). Hospital course: 10/24: Neurology saw patient recommended repeat EEG. ?ECT. Clarify Depakote allergy. 10/26: Continue current management and treatment plan. Repeat EEG pending. telephone call to adrien Alfredo and email to arrange a time to talk with her about medication reactions as pt does not recall; increase vraylar to 3mg daily 10/27 continue plan; waiting to hear back from Sayda re medication reaction but have the list of meds with which she had poor reactions. consider increase vraylar if needed and consider scheduled clonazepam; Sayda (cousin) reports pt has a referral to [facility] neurology already for after care but no appt yet. 10/28 Patient tearful, hard to express herself through emotions; saying that she is scared she will never get better, trying to push herself to go to groups... She is following staff's recommendations at behavioral activation however it is also causing her some stress as she can not tell how long she supposed to be out of her room, engaged with others feeling very unable to decide how much time she should be allowed to stay in her room by herself.... Route Relief Driver tried to talk this through with her but patient had a hard time discussing therapeutic approaches to to her emotionality. That said, patient feels somewhat improved since she 1st came in and said that she is feeling so-so in addition to being scared and anxious. She does say however that she is suffering which is apparent. -Patient said that the last time she was hospitalized was in 2019 and when discharged, was overall feeling that she was doing pretty well. Discussed medication regimen and patient is not sure why medications were changed over these years but she agrees to get back on past regimen; also discussed ECT but patient can not remember if she thought this was helpful or not. Patient gave permission to talk to her provider, her cousin who is also her healthcare proxy. Per staff, covering provider, pt improved a little since admission: She is less tearful and no begging, getting on her knees with hands clapsed as she did on first day; -pt tolerating the vraylar which was increased to 3mg yesterday. pt remains tortured by worries, depression, indecisiveness...though a little less intensely so then on admission. Pt says it's very hard for her to do anything and she just wants to go lie in bed; however, she agrees to force herself to groups. Apologetically Rejects some activities recommended saying she's too anxious to attend. -cousin/HCP Sayda: gave hx -Says Haldol has historically worked the best; agrees with re-trial of Lamicta; continue w/ Vraylar -She voiced [facility] MRI concerns; ghost writer able to read impression which does refer to lesion Right Frontal lobe (not in [employer]) 10/29 pt agrees she's doing a little better...says a little less anxious-maybe due to Vraylar; affect is more calm; agrees to continue -continues to feel depressed and struggles with both ocd-obsessional worries and indecisiveness (can't tolerate picking out menu, cloths...what to do w/ time). Agrees to restart Lamictal to help w/ OCD 10/31/23 CTP (started on vraylar and lamotrigine) 11/01/23 added gabapentin to see if more immediate effect- watch for sedation cortes combined with clonazepam- 11/01 still very anxious, paralyzed by indecision, depressed; increasing Vrayar 11/02 pt remains paralyzed by her worries, fearful, tearful; expresses frustration/shame at struggles making choices overwhelmed at thought of choosing cloths, food off the menu. discussed med management and pt agrees to try Trileptal to see if it can help w/ anxiety given that Lamictal takes a while to reach therapeutic dose. -medication alone will not be enough to stabilize patient: -Team/OT discussed and created extensive behavioral/therapeutic CBT based plan which includes gradually increased tasks including picking foods off simplified menu, slowly adding choice of cloths... 11/03: continue current tx plan. 11/04 remains very anixous, paralyzed by OCD symptoms rendering unable to make decisions w/out extreme stress and anxiety; seems that Thorazine prn has lowered a little anxiety so will add to regimen. Pt now on 3 antipsychotics; she is miserable, suffering and tying to find regimen that works; will aim to eliminate one antipsychotic but for time being trying to get pt relief from overwhelming anxiety. Increasing Trileptal to 300mg BID. Not sure that Vraylar is helping but will keep for now. 11/05 Patient remains severely disabled by anxiety, walking up and down the [place] in tears, talking about how she is afraid. Patient benefited from Thorazine 75 mg which did reduce her anxiety considerably though only temporarily. -Discussed case with Dr. Bryant who treated patient in the past though her symptoms were similarly very difficult to treat, he thought she improved on combination of clozapine, Haldol, Depakote and propranolol. Also agreed with titrating Trileptal for anxiety and which is used in some cases for carrol. Clozaril and Depakote or currently on hold, given some side effects and inconvenience; propranolol as an option. -Vraylar has not seemed to help so will likely DC now that Thorazine has proven somewhat helpful; increasing Trileptal; considering scheduling Thorazine 11/06 Ever so slightly better. Patient remains very anxious and with much difficulty getting dressed her making any decisions. However her affect is a little less anxious and her cousin who visited today agrees. Discussed medication regimen at length and agreed to continue on current treatment plan. Patient had what looked like a dystonic reaction however she kept saying it was just that her tongue was dry. Gave patient Benadryl 50 mg which to ghost writer, seemed to make it better however patient did not think so. She is on Cogentin 1 mg b.i.d. which ostensibly should prevent dystonia however it is still unclear to ghost writer what occurred today. Cousin said that this happens from time to time and she has understood it to be dry mouth secondary to medication. Route Relief Driver educated both on the side effect of dystonia for which they will monitor. -will add Benadryl 50 mg as a p.r.n. in case of dystonic reaction 11/07 same presentation; no tongue/mouth issues 11/08 Patient remains with considerable struggles completing tasks, dealing with a close due to excessive worrying. Discussed medication regimen and now that patient seems to have stabilized some discussing whether to start TCA for OCD. Patient has decompensated with SSRIs and there remain some risk with TCAs as well, however OCD symptoms are crippling and patient is desperate for relief. -consulting with Dr. rByant; will reach out to outpatient provider to get additional history on medication trials 11/09 Patient doing a little better and actually smiling and laughing some while talking with ghost writer. Still gets very anxious when talking about dealing with her clothes/laundry but can pull herself out of it a little faster than before. Patient said she is pretty anxious about returning to her sister/cousin's house. She loves her cousin but can get very frustrated there; patient becomes tearful thinking about it. Discussed medication and ambivalence about whether to add clomipramine. Patient is doing a little better but still remains quite paralyzed by her excessive OCD type worries. Patient agrees to trial to see how it goes 11/10 more tearful and anxious than yesterday 11/11 pt crying so much, unable to have much of a discussion; beside herself regarding cloths (for which pt receives much help from staff). Discussed meds and she agrees to increase Lamictal. -will DC Clomipramine; some concern that patients increased tearfulness over past 2 days as team agrees she has decompenstated a little bit since started. Of course this may not be the cause, but since she was progressing some before clomipramine was started will dc -further discussed treatment plan with OT and it is agreed that having patient deal with her laundry is simply too triggering for her right now; will remove this from her behavioral plan to see if she can further stabilize CONSIDER: Scheduling Thorazine; propranolol; maximizing Trileptal, Zyprexa, low-dose Depakote... TCA clomipramine Plan CV Q 15 -DISCONTINUEd Clomipramine 25mg qhs; starting this med on 11/09 correlated with decompensation; could be a simple coincidence however not worth the risk at this time -will increase to Lamictal 25mg b.i.d. on 11/13 -continue Benadryl 50 mg p.r.n. for dystonia -Continue Thorazine 50mg TID PRN for anxiety/agitation (will dc haldol prn and hydroxyzine prn since not helping) -Continue Thorazine 50mg TiD -continue haldol dec 100mg IM received November 10 -continue gabapentin to 300mg TId to see if can help with anxiety (started for foot pain, however, pain is new, from walking halls) -Continue Trileptal 300mg t.i.d. for anxiety; will titrate; not sure if will be helpful, but few options left to address anxiety as Vraylar/lamictal become theapeutic -working with OT for help with CBT -DC Vraylar 4.5mg has not seem to help -look further into MRI impression -DC'd Prozac concern for bipolar disorder, dry mouth -Neurology/EEG: Previously she has reported some symptoms suggestive of complex partial seizures and had mildly abnormal EEG. At this time her presentation was different but I would suggest obtaining an EEG again. In addition, if a mood stabilizer is needed, I would recommend using lamotrigine, topiramate, or valproic acid. -Neurology consult 10/24 Dr. Ma, 47 years old woman admitted in hospital with severe depression and self-harm type of behavior. Couple of years ago she was admitted in hospital and reported episodes of her patel type of feeling going to her head lasting for seconds to minutes. At that time an EEG revealed left temporal sharp waves. CT scan and MRI of brain were okay. -however, [facility] MRI concerns; ghost writer able to read impression from [facility] 09/17/23 which does refer to lesion Right Frontal lobe (not in [email or web address]); will discuss with neuro Med trials: Haldol: worked the best ! Lamictal: did not seem to help, but...may have been too low a dose Fluvoxamine? not sure if helpful ECT: no help; memory loss Vraylar 4.5mg has not seemed to help Clozapine: did not tolerate frequent blood draws abilify: severe restlessness Risperdal: severe restlessness [place]: bed-wetting; not sure if helped Depakote: muscle cramps, restless... Latuda: TD Seroquel 50 mg Q 4 p.r.n. (makes aggressive) Nuedexta (Dextromethorphan /Quinidine) for uncontrollable crying/laughing Oxybutynin 10 mg Propranolol 20 mg t.i.d. hx: -Psych admission 2019 [place] [facility] for 1 year 2019- did ok, ups/downs; lots of med changes -Home with Cousin 2020-current: past 2.5 years overall good enough, lots of up/downs and med changes BETH and some trouble breathing? Seratonin Syndrom on some meds for depression? (not sure details) -Thinks recent decomp result of adding Paxil which caused high irritability/manic/obsessive and then Prozac which caused the same; since then, outpt provider trying to do a reset on meds... Says when at home w/ Cousin, ups/downs but was able to overall function at home with sufficient good enough periods where she'd go out and do activities (with help), put on makeup, enjoy things...Sayda reports constant medication changes making it difficult to know what meds worked or at least were partially helpful...wonders that during down times, it would be better to just wait it out rather than make med changes. Thinks recent decomp result of adding Paxil which caused high irritability/manic/obsessive and then Prozac which caused the same; since then, outpt provider trying to do a reset on meds.. Patient educated on: diagnosis, medication risk/benefits and therapeutic strategies Informed Consent: understands Reason for continued inpatient stay Substantial Risk for: inability to function Time Spent With Patient Time: Total time managing care of this patient today ____ minutes.
[2023-11-12 18:00] VITALS: BP 153/88; PULSE 117; RESP 18; TEMP 36.5; O2SAT 100
[2023-11-12] MEDS: traZODone HCL 50 MG TABLET PO (20:45)
[2023-11-12] MEDS: lamoTRIgine 25 MG TABLET PO (20:45)
[2023-11-13] MEDS: Levothyroxine Sodium 75 MCG TABLET PO (05:13)
[2023-11-13] MEDS: Omeprazole 20 MG CAPSULE.DR PO (05:13)
[2023-11-13 08:00] VITALS: BP 102/60; PULSE 73; RESP 18; TEMP 36.1; O2SAT 98
[2023-11-13] MEDS: Cholecalciferol (Vitamin D3) 25 MCG TABLET PO (09:12)
[2023-11-13] MEDS: chlorproMAZINE HCl 25 MG TABLET 50 MG PO ×4 (09:12→20:54)
[2023-11-13] MEDS: OXcarbazepine 300 MG TABLET PO ×3 (09:12→20:54)
[2023-11-13] MEDS: Gabapentin 300 MG CAPSULE PO ×3 (09:12→20:54)
[2023-11-13] MEDS: Benztropine Mesylate 1 MG TABLET PO ×2 (09:12→20:55)
[2023-11-13] MEDS: clonazePAM 1 MG TABLET PO ×2 (09:12→20:55)
--- NOTE | 2023-11-13 14:36 | P.PNPSI_ITS ---
Subjective Subjective Date of Service: 11/13/23 Reason For Visit: Bipolar Disorder Subjective Notes: Conditional Voluntary Interim History: Pt awake, in bed this afternoon. Tearful. Focused on who will help her, how will she manage without help. Discussed coordination of her clothes, I don't know how to match. , doing laundry. Discussed that she feels like a bad person because she does not know how to take care of herself, her appearance or keep herself healthy, I just don't know what to do. Discussed feeling overwhelmed Medication Compliance: Yes Side effects from medications: No Attending Groups: Intermittent Review of Systems Acute medical concerns: No Medical Review of Systems: unchanged Review of Systems Review of Systems Yes all other systems are reviewed and are negative Mental Status Exam Mental Status Exam Patient Appearance: Fatigued and Appropriate Patient Orientation: Person, Place and Situation Level of Consciousness: Alert Patient Behavior: Talkative and Crying Mood Description: Depressed Affect Description: Flat Patient Cognition Impaired: Yes Ability to Follow Directions: Good Speech Pattern: Spontaneous Speech Memory Description: Episodic Impaired Hallucinations: None Perceptual Disturbances: Depersonalization Thought Process: Rumination Thought Content: positive for Suicidal Ideation (denies) Depressive Symptoms: Increased Anxiety, Low Self Esteem and Difficulty Concentrating Judgement: Poor Diagnostics Vital Signs (24Hr): Vital Signs - 24 hr 11/12/23 18:00 11/13/23 08:00 Temperature 97.7 F 97 F Pulse Rate 117 H 73 Respiratory Rate 18 18 Blood Pressure 153/88 H 102/60 Pulse Oximetry 100 98 Oxygen Delivery Method Room Air Room Air BMI result Body Mass Index 33.9 Labs 10/20/23 20:19 10/20/23 20:19 Medications Medications Current Medications Acetaminophen (Acetaminophen 325 Mg Tablet) 650 mg PO Q6H PRN PRN Reason: Headache/Pain Scale (1-10) Al Hydroxide/Mg Hydroxide (Magnesium Hydrox/Alum Hydrox 30 Ml Oral.Susp) 30 ml PO Q6H PRN PRN Reason: Heartburn/Nausea Last Admin: 10/27/23 13:38 Dose: 30 ml Benztropine Mesylate (Benztropine Mesylate 1 Mg Tablet) 1 mg PO BID [facility] Last Admin: 11/13/23 09:12 Dose: 1 mg Chlorpromazine HCl (Chlorpromazine Hcl 25 Mg Tablet) 50 mg PO TID [facility] Last Admin: 11/13/23 09:12 Dose: 50 mg Chlorpromazine HCl (Chlorpromazine Hcl 25 Mg Tablet) 50 mg PO QID PRN PRN Reason: anxiety/agitation Clonazepam (Clonazepam 1 Mg Tablet) 1 mg PO TID PRN PRN Reason: panic attack Last Admin: 11/13/23 09:12 Dose: 1 mg Diphenhydramine HCl (Diphenhydramine Hcl 25 Mg Capsule) 50 mg PO Q6H PRN PRN Reason: DY[place] Last Admin: 11/07/23 19:30 Dose: 50 mg Gabapentin (Gabapentin 300 Mg Capsule) 300 mg PO TID [facility] Last Admin: 11/13/23 09:12 Dose: 300 mg Haloperidol Decanoate (Haloperidol Decanoate 50 Mg/Ml Vial) 100 mg IM Q28D [facility] Last Admin: 11/11/23 10:26 Dose: 100 mg Lamotrigine (Lamotrigine 25 Mg Tablet) 25 mg PO BEDTIME [facility] Stop: 11/13/23 21:00 Last Admin: 11/12/23 20:45 Dose: 25 mg Lamotrigine (Lamotrigine 25 Mg Tablet) 25 mg PO BID [facility] Levothyroxine Sodium (Levothyroxine Sodium 75 Mcg Tablet) 75 mcg PO DAILY@0630 [facility] Last Admin: 11/13/23 05:13 Dose: 75 mcg Magnesium Hydroxide (Milk Of Magnesia 30 Ml Oral.Susp) 30 ml PO DAILY PRN PRN Reason: Constipation Last Admin: 11/03/23 05:11 Dose: 30 ml Omeprazole (Omeprazole 20 Mg Capsule.Dr) 20 mg PO DAILY@0630 [facility] Last Admin: 11/13/23 05:13 Dose: 20 mg Oxcarbazepine (Oxcarbazepine 300 Mg Tablet) 300 mg PO TID [facility] Last Admin: 11/13/23 09:12 Dose: 300 mg Trazodone HCl (Trazodone Hcl 50 Mg Tablet) 50 mg PO BEDTIME MRX1 PRN PRN Reason: Insomnia Last Admin: 11/12/23 20:45 Dose: 50 mg Vitamin D (Cholecalciferol (Vitamin D3) 25 Mcg Tablet) 25 mcg PO DAILY [facility] Last Admin: 11/13/23 09:12 Dose: 25 mcg Allergies Allergies Allergy/AdvReac Type Severity Reaction Status Date / Time aripiprazole Allergy Mild Unknown Verified 10/07/23 07:50 bupropion AdvReac Unknown Verified 10/07/23 07:50 divalproex sodium AdvReac Unknown Verified 10/07/23 07:50 [From Depakote] risperidone AdvReac Unknown Verified 10/07/23 07:50 Assessment & Plan Assessment & Plan (1) Bipolar 1 disorder, mixed: Status: Acute Code(s): F31.60 - Bipolar disorder, current episode mixed, unspecified Assessment and Plan: 11/01/23 discussed trying gabapentin, tried to review prior hx of this but seems like hx is archived or I couldn't figure out how to access it- (2) OCD (obsessive compulsive disorder): Qualifiers: Obsessive-compulsive disorder type: mixed obsessional thoughts and acts Qualified Code(s): F42.2 - Mixed obsessional thoughts and acts Status: Acute Code(s): F42.9 - Obsessive-compulsive disorder, unspecified (3) Abnormal EEG: Status: Acute Code(s): R94.01 - Abnormal electroencephalogram [EEG] Assessment and Plan: 47 years old woman who was admitted in hospital with severe depression. Previously she has reported some symptoms suggestive of complex partial seizures and had mildly abnormal EEG. At this time her presentation was different but I would suggest obtaining an EEG again. In addition, if a mood stabilizer is needed, I would recommend using lamotrigine, topiramate, or valproic acid. (4) History of electroconvulsive therapy: Status: Acute Code(s): Z98.890 - Other specified postprocedural states Assessment and Plan: Pt reports this didn't help her last time she tried Plan 47 yo woman with chronic Bipolar Disorder and OCD with severe anxiety and restlessness, intrusive behavior, ruminating and pacing in need of hospital treatment admitted on CV to [facility]. Impression/decision making: History of difficult to treat bipolar depression, OCD. Haldol has been helpful and pt will continue on it, but many other failed med trials including antipsychotics, mood stabilizers and SSRI's; ECT in past not helpful (maybe because hard to get good seizure since on benzos/depakote?). Pt started on Vraylar for bipolar depression and Lamictal for OCD (and depression/anxiety). Hospital course: 10/24: Neurology saw patient recommended repeat EEG. ?ECT. Clarify Depakote allergy. 10/26: Continue current management and treatment plan. Repeat EEG pending. telephone call to cousin Sayda and email to arrange a time to talk with her about medication reactions as pt does not recall; increase vraylar to 3mg daily 10/27 continue plan; waiting to hear back from Sayda re medication reaction but have the list of meds with which she had poor reactions. consider increase vraylar if needed and consider scheduled clonazepam; Sayda (cousin) reports pt has a referral to [facility] neurology already for after care but no appt yet. 10/28 Patient tearful, hard to express herself through emotions; saying that she is scared she will never get better, trying to push herself to go to groups... She is following staff's recommendations at behavioral activation however it is also causing her some stress as she can not tell how long she supposed to be out of her room, engaged with others feeling very unable to decide how much time she should be allowed to stay in her room by herself.... Election Assistant tried to talk this through with her but patient had a hard time discussing therapeutic approaches to to her emotionality. That said, patient feels somewhat improved since she 1st came in and said that she is feeling so-so in addition to being scared and anxious. She does say however that she is suffering which is apparent. -Patient said that the last time she was hospitalized was in 2019 and when discharged, was overall feeling that she was doing pretty well. Discussed medication regimen and patient is not sure why medications were changed over these years but she agrees to get back on past regimen; also discussed ECT but patient can not remember if she thought this was helpful or not. Patient gave permission to talk to her provider, her cousin who is also her healthcare proxy. Per staff, covering provider, pt improved a little since admission: She is less tearful and no begging, getting on her knees with hands clapsed as she did on first day; -pt tolerating the vraylar which was increased to 3mg yesterday. pt remains tortured by worries, depression, indecisiveness...though a little less intensely so then on admission. Pt says it's very hard for her to do anything and she just wants to go lie in bed; however, she agrees to force herself to groups. Apologetically Rejects some activities recommended saying she's too anxious to attend. -cousin/HCP Sayda: gave hx -Says Haldol has historically worked the best; agrees with re-trial of Lamicta; continue w/ Vraylar -She voiced [facility] MRI concerns; chart writer able to read impression which does refer to lesion Right Frontal lobe (not in meditech) 10/29 pt agrees she's doing a little better...says a little less anxious-maybe due to Vraylar; affect is more calm; agrees to continue -continues to feel depressed and struggles with both ocd-obsessional worries and indecisiveness (can't tolerate picking out menu, cloths...what to do w/ time). Agrees to restart Lamictal to help w/ OCD 10/31/23 CTP (started on vraylar and lamotrigine) 11/01/23 added gabapentin to see if more immediate effect- watch for sedation cortes combined with clonazepam- 11/01 still very anxious, paralyzed by indecision, depressed; increasing Vrayar 11/02 pt remains paralyzed by her worries, fearful, tearful; expresses frustration/shame at struggles making choices overwhelmed at thought of choosing cloths, food off the menu. discussed med management and pt agrees to try Trileptal to see if it can help w/ anxiety given that Lamictal takes a while to reach therapeutic dose. -medication alone will not be enough to stabilize patient: -Team/OT discussed and created extensive behavioral/therapeutic CBT based plan which includes gradually increased tasks including picking foods off simplified menu, slowly adding choice of cloths... 11/03: continue current tx plan. 11/04 remains very anixous, paralyzed by OCD symptoms rendering unable to make decisions w/out extreme stress and anxiety; seems that Thorazine prn has lowered a little anxiety so will add to regimen. Pt now on 3 antipsychotics; she is miserable, suffering and tying to find regimen that works; will aim to eliminate one antipsychotic but for time being trying to get pt relief from overwhelming anxiety. Increasing Trileptal to 300mg BID. Not sure that Vraylar is helping but will keep for now. 11/05 Patient remains severely disabled by anxiety, walking up and down the [place]le[place] in tears, talking about how she is afraid. Patient benefited from Thorazine 75 mg which did reduce her anxiety considerably though only temporarily. -Discussed case with Dr. Bryant who treated patient in the past though her symptoms were similarly very difficult to treat, he thought she improved on combination of clozapine, Haldol, Depakote and propranolol. Also agreed with titrating Trileptal for anxiety and which is used in some cases for carrol. Clozaril and Depakote or currently on hold, given some side effects and inconvenience; propranolol as an option. -Vraylar has not seemed to help so will likely DC now that Thorazine has proven somewhat helpful; increasing Trileptal; considering scheduling Thorazine 11/06 Ever so slightly better. Patient remains very anxious and with much difficulty getting dressed her making any decisions. However her affect is a little less anxious and her cousin who visited today agrees. Discussed medication regimen at length and agreed to continue on current treatment plan. Patient had what looked like a dystonic reaction however she kept saying it was just that her tongue was dry. Gave patient Benadryl 50 mg which to chart writer, seemed to make it better however patient did not think so. She is on Cogentin 1 mg b.i.d. which ostensibly should prevent dystonia however it is still unclear to chart writer what occurred today. Cousin said that this happens from time to time and she has understood it to be dry mouth secondary to medication. Election Assistant educated both on the side effect of dystonia for which they will monitor. -will add Benadryl 50 mg as a p.r.n. in case of dystonic reaction 11/07 same presentation; no tongue/mouth issues 11/08 Patient remains with considerable struggles completing tasks, dealing with a close due to excessive worrying. Discussed medication regimen and now that patient seems to have stabilized some discussing whether to start TCA for OCD. Patient has decompensated with SSRIs and there remain some risk with TCAs as well, however OCD symptoms are crippling and patient is desperate for relief. -consulting with Dr. Bryant; will reach out to outpatient provider to get additional history on medication trials 11/09 Patient doing a little better and actually smiling and laughing some while talking with chart writer. Still gets very anxious when talking about dealing with her clothes/laundry but can pull herself out of it a little faster than before. Patient said she is pretty anxious about returning to her sister/cousin's house. She loves her cousin but can get very frustrated there; patient becomes tearful thinking about it. Discussed medication and ambivalence about whether to add clomipramine. Patient is doing a little better but still remains quite paralyzed by her excessive OCD type worries. Patient agrees to trial to see how it goes 11/10 more tearful and anxious than yesterday 11/11 pt crying so much, unable to have much of a discussion; beside herself regarding cloths (for which pt receives much help from staff). Discussed meds and she agrees to increase Lamictal. -will DC Clomipramine; some concern that patients increased tearfulness over past 2 days as team agrees she has decompenstated a little bit since started. Of course this may not be the cause, but since she was progressing some before clomipramine was started will dc -further discussed treatment plan with OT and it is agreed that having patient deal with her laundry is simply too triggering for her right now; will remove this from her behavioral plan to see if she can further stabilize. 11/12- Continue tx. CONSIDER: Scheduling Thorazine; propranolol; maximizing Trileptal, Zyprexa, low-dose Depakote... TCA clomipramine Plan CV Q 15 -DISCONTINUEd Clomipramine 25mg qhs; starting this med on 11/09 correlated with decompensation; could be a simple coincidence however not worth the risk at this time -will increase to Lamictal 25mg b.i.d. on 11/13 -continue Benadryl 50 mg p.r.n. for dystonia -Continue Thorazine 50mg TID PRN for anxiety/agitation (will dc haldol prn and hydroxyzine prn since not helping) -Continue Thorazine 50mg TiD -continue haldol dec 100mg IM received November 10 -continue gabapentin to 300mg TId to see if can help with anxiety (started for foot pain, however, pain is new, from walking halls) -Continue Trileptal 300mg t.i.d. for anxiety; will titrate; not sure if will be helpful, but few options left to address anxiety as Vraylar/lamictal become theapeutic -working with OT for help with CBT -DC Vraylar 4.5mg has not seem to help -look further into MRI impression -DC'd Prozac concern for bipolar disorder, dry mouth -Neurology/EEG: Previously she has reported some symptoms suggestive of complex partial seizures and had mildly abnormal EEG. At this time her presentation was different but I would suggest obtaining an EEG again. In addition, if a mood stabilizer is needed, I would recommend using lamotrigine, topiramate, or valproic acid. -Neurology consult 10/24 Dr. Ma, 47 years old woman admitted in hospital with severe depression and self-harm type of behavior. Couple of years ago she was admitted in hospital and reported episodes of her patel type of feeling going to her head lasting for seconds to minutes. At that time an EEG revealed left temporal sharp waves. CT scan and MRI of brain were okay. -however, [facility] MRI concerns; chart writer able to read impression from [facility] 09/17/23 which does refer to lesion Right Frontal lobe (not in meditech); will discuss with neuro Med trials: Haldol: worked the best ! Lamictal: did not seem to help, but...may have been too low a dose Fluvoxamine? not sure if helpful ECT: no help; memory loss Vraylar 4.5mg has not seemed to help Clozapine: did not tolerate frequent blood draws abilify: severe restlessness Risperdal: severe restlessness [place]: bed-wetting; not sure if helped Depakote: muscle cramps, restless... Latuda: TD Seroquel 50 mg Q 4 p.r.n. (makes aggressive) Nuedexta (Dextromethorphan /Quinidine) for uncontrollable crying/laughing Oxybutynin 10 mg Propranolol 20 mg t.i.d. hx: -Psych admission 2019 [place] [facility] for [facility] year 2019- did ok, ups/downs; lots of med changes -Home with Cousin 2020-current: past 2.5 years overall good enough, lots of up/downs and med changes BETH and some trouble breathing? Seratonin Syndrom on some meds for depression? (not sure details) -Thinks recent decomp result of adding Paxil which caused high irritability/manic/obsessive and then Prozac which caused the same; since then, outpt provider trying to do a reset on meds... Says when at home w/ Cousin, ups/downs but was able to overall function at home with sufficient good enough periods where she'd go out and do activities (with help), put on makeup, enjoy things...Sayda reports constant medication changes making it difficult to know what meds worked or at least were partially helpful...wonders that during down times, it would be better to just wait it out rather than make med changes. Thinks recent decomp result of adding Paxil which caused high irritability/manic/obsessive and then Prozac which caused the same; since then, outpt provider trying to do a reset on meds.. Reason for continued inpatient stay Substantial Risk for: rapid decompensation Time Spent With Patient Time: Total time managing care of this patient today ____ minutes.
[2023-11-13 16:45] VITALS: BP 114/68; PULSE 108; RESP 18; TEMP 36.3; O2SAT 99
[2023-11-13] MEDS: lamoTRIgine 25 MG TABLET PO (20:54)
[2023-11-13] MEDS: traZODone HCL 50 MG TABLET PO (20:55)
[2023-11-13] MEDS: Dry Mouth Spray 60 ML SPRAY 1 SPRAY MUCOUS MEM (20:58)
[2023-11-14] MEDS: Levothyroxine Sodium 75 MCG TABLET PO (06:36)
[2023-11-14] MEDS: Omeprazole 20 MG CAPSULE.DR PO (06:36)
[2023-11-14 08:06] VITALS: BP 115/75; PULSE 106; RESP 15; TEMP 36.2; O2SAT 100
[2023-11-14] MEDS: chlorproMAZINE HCl 25 MG TABLET 50 MG PO ×3 (08:07→21:20)
[2023-11-14] MEDS: Benztropine Mesylate 1 MG TABLET PO ×2 (08:07→21:19)
[2023-11-14] MEDS: Cholecalciferol (Vitamin D3) 25 MCG TABLET PO (08:08)
[2023-11-14] MEDS: OXcarbazepine 300 MG TABLET PO ×3 (08:08→21:19)
[2023-11-14] MEDS: lamoTRIgine 25 MG TABLET PO ×2 (08:08→21:20)
[2023-11-14] MEDS: Gabapentin 300 MG CAPSULE PO ×2 (08:08→21:20)
--- NOTE | 2023-11-14 09:14 | HO.PSYCHPN ---
Subjective Subjective Date of Service: 11/14/23 Reason For Visit: Bipolar Disorder Subjective Notes: Conditional Voluntary Interim History: Patient was seen and discussed in rounds today. Records and plans were reviewed. She continues to be sad, tearful and guarded. Medication compliant. She has been tearful at times. Eating and sleeping adequately. No complaints or side effects. No changes were made today Review of Systems Review of Systems Yes all other systems are reviewed and are negative Mental Status Exam Mental Status Exam Patient Appearance: Fatigued and Appropriate Patient Orientation: Person, Place and Situation Level of Consciousness: Alert Patient Behavior: Talkative and Crying Mood Description: Depressed Affect Description: Flat Patient Cognition Impaired: Yes Ability to Follow Directions: Good Speech Pattern: Spontaneous Speech Memory Description: Episodic Impaired Hallucinations: None Perceptual Disturbances: Depersonalization Thought Process: Rumination Thought Content: positive for Suicidal Ideation (denies) Depressive Symptoms: Increased Anxiety, Low Self Esteem and Difficulty Concentrating Judgement: Poor Diagnostics Vital Signs (24Hr): Vital Signs - 24 hr 11/13/23 16:45 11/14/23 08:06 Temperature 97.4 F 97.2 F Pulse Rate 108 H 106 H Respiratory Rate 18 15 Blood Pressure 114/68 115/75 Pulse Oximetry 99 100 Oxygen Delivery Method Room Air Room Air BMI result Body Mass Index 33.9 Labs 10/20/23 20:19 10/20/23 20:19 Medications Medications Current Medications Acetaminophen (Acetaminophen 325 Mg Tablet) 650 mg PO Q6H PRN PRN Reason: Headache/Pain Scale (1-10) Al Hydroxide/Mg Hydroxide (Magnesium Hydrox/Alum Hydrox 30 Ml Oral.Susp) 30 ml PO Q6H PRN PRN Reason: Heartburn/Nausea Last Admin: 10/27/23 13:38 Dose: 30 ml Benztropine Mesylate (Benztropine Mesylate 1 Mg Tablet) 1 mg PO BID [facility] Last Admin: 11/14/23 08:07 Dose: 1 mg Chlorpromazine HCl (Chlorpromazine Hcl 25 Mg Tablet) 50 mg PO TID [facility] Last Admin: 11/14/23 08:07 Dose: 50 mg Chlorpromazine HCl (Chlorpromazine Hcl 25 Mg Tablet) 50 mg PO QID PRN PRN Reason: anxiety/agitation Last Admin: 11/13/23 20:54 Dose: 50 mg Clonazepam (Clonazepam 1 Mg Tablet) 1 mg PO TID PRN PRN Reason: panic attack Last Admin: 11/13/23 20:55 Dose: 1 mg Diphenhydramine HCl (Diphenhydramine Hcl 25 Mg Capsule) 50 mg PO Q6H PRN PRN Reason: DYSt[place] Last Admin: 11/07/23 19:30 Dose: 50 mg Gabapentin (Gabapentin 300 Mg Capsule) 300 mg PO TID [facility] Last Admin: 11/14/23 08:08 Dose: 300 mg Haloperidol Decanoate (Haloperidol Decanoate 50 Mg/Ml Vial) 100 mg IM Q28D [facility] Last Admin: 11/11/23 10:26 Dose: 100 mg Lamotrigine (Lamotrigine 25 Mg Tablet) 25 mg PO BID [facility] Last Admin: 11/14/23 08:08 Dose: 25 mg Levothyroxine Sodium (Levothyroxine Sodium 75 Mcg Tablet) 75 mcg PO DAILY@06 [facility] Last Admin: 11/14/23 06:36 Dose: 75 mcg Magnesium Hydroxide (Milk Of Magnesia 30 Ml Oral.Susp) 30 ml PO DAILY PRN PRN Reason: Constipation Last Admin: 11/03/23 05:11 Dose: 30 ml Omeprazole (Omeprazole 20 Mg Capsule.Dr) 20 mg PO DAILY@629 [facility] Last Admin: 11/14/23 06:36 Dose: 20 mg Oxcarbazepine (Oxcarbazepine 300 Mg Tablet) 300 mg PO TID [facility] Last Admin: 11/14/23 08:08 Dose: 300 mg Saliva Substitute (Dry Mouth [place] 60 Ml [place]) 1 spray MUCOUS MEM Q2H PRN PRN Reason: dry mouth Last Admin: 11/13/23 20:58 Dose: 1 spray Trazodone HCl (Trazodone Hcl 50 Mg Tablet) 50 mg PO BEDTIME MRX1 PRN PRN Reason: Insomnia Last Admin: 11/13/23 20:55 Dose: 50 mg Vitamin D (Cholecalciferol (Vitamin D3) 25 Mcg Tablet) 25 mcg PO DAILY [facility] Last Admin: 11/14/23 08:08 Dose: 25 mcg Allergies Allergies Allergy/AdvReac Type Severity Reaction Status Date / Time aripiprazole Allergy Mild Unknown Verified 10/07/23 07:50 bupropion AdvReac Unknown Verified 10/07/23 07:50 divalproex sodium AdvReac Unknown Verified 10/07/23 07:50 [From Depakote] risperidone AdvReac Unknown Verified 10/07/23 07:50 Assessment & Plan Assessment & Plan (1) Bipolar 1 disorder, mixed: Status: Acute Code(s): F31.60 - Bipolar disorder, current episode mixed, unspecified Assessment and Plan: 11/01/23 discussed trying gabapentin, tried to review prior hx of this but seems like hx is archived or I couldn't figure out how to access it- (2) OCD (obsessive compulsive disorder): Qualifiers: Obsessive-compulsive disorder type: mixed obsessional thoughts and acts Qualified Code(s): F42.2 - Mixed obsessional thoughts and acts Status: Acute Code(s): F42.9 - Obsessive-compulsive disorder, unspecified (3) Abnormal EEG: Status: Acute Code(s): R94.01 - Abnormal electroencephalogram [EEG] Assessment and Plan: 47 years old woman who was admitted in hospital with severe depression. Previously she has reported some symptoms suggestive of complex partial seizures and had mildly abnormal EEG. At this time her presentation was different but I would suggest obtaining an EEG again. In addition, if a mood stabilizer is needed, I would recommend using lamotrigine, topiramate, or valproic acid. (4) History of electroconvulsive therapy: Status: Acute Code(s): Z98.890 - Other specified postprocedural states Assessment and Plan: Pt reports this didn't help her last time she tried Plan 47 yo woman with chronic Bipolar Disorder and OCD with severe anxiety and restlessness, intrusive behavior, ruminating and pacing in need of hospital treatment admitted on CV to [facility]. Impression/decision making: History of difficult to treat bipolar depression, OCD. Haldol has been helpful and pt will continue on it, but many other failed med trials including antipsychotics, mood stabilizers and SSRI's; ECT in past not helpful (maybe because hard to get good seizure since on benzos/depakote?). Pt started on Vraylar for bipolar depression and Lamictal for OCD (and depression/anxiety). Hospital course: 10/24: Neurology saw patient recommended repeat EEG. ?ECT. Clarify Depakote allergy. 10/26: Continue current management and treatment plan. Repeat EEG pending. telephone call to cousin Sayda and email to arrange a time to talk with her about medication reactions as pt does not recall; increase vraylar to 3mg daily 10/27 continue plan; waiting to hear back from Sayda re medication reaction but have the list of meds with which she had poor reactions. consider increase vraylar if needed and consider scheduled clonazepam; Sayda (cousin) reports pt has a referral to [facility] neurology already for after care but no appt yet. 10/28 Patient tearful, hard to express herself through emotions; saying that she is scared she will never get better, trying to push herself to go to groups... She is following staff's recommendations at behavioral activation however it is also causing her some stress as she can not tell how long she supposed to be out of her room, engaged with others feeling very unable to decide how much time she should be allowed to stay in her room by herself.... [employer] tried to talk this through with her but patient had a hard time discussing therapeutic approaches to to her emotionality. That said, patient feels somewhat improved since she 1st came in and said that she is feeling so-so in addition to being scared and anxious. She does say however that she is suffering which is apparent. -Patient said that the last time she was hospitalized was in 2019 and when discharged, was overall feeling that she was doing pretty well. Discussed medication regimen and patient is not sure why medications were changed over these years but she agrees to get back on past regimen; also discussed ECT but patient can not remember if she thought this was helpful or not. Patient gave permission to talk to her provider, her cousin who is also her healthcare proxy. Per staff, covering provider, pt improved a little since admission: She is less tearful and no begging, getting on her knees with hands clapsed as she did on first day; -pt tolerating the vraylar which was increased to 3mg yesterday. pt remains tortured by worries, depression, indecisiveness...though a little less intensely so then on admission. Pt says it's very hard for her to do anything and she just wants to go lie in bed; however, she agrees to force herself to groups. Apologetically Rejects some activities recommended saying she's too anxious to attend. -cousin/HCP Sayda: gave hx -Says Haldol has historically worked the best; agrees with re-trial of Lamicta; continue w/ Vraylar -She voiced [facility] MRI concerns; tag writer able to read impression which does refer to lesion Right Frontal lobe (not in [facility]ite[facility]) 10/29 pt agrees she's doing a little better...says a little less anxious-maybe due to Vraylar; affect is more calm; agrees to continue -continues to feel depressed and struggles with both ocd-obsessional worries and indecisiveness (can't tolerate picking out menu, cloths...what to do w/ time). Agrees to restart Lamictal to help w/ OCD 10/31/23 CTP (started on vraylar and lamotrigine) 11/01/23 added gabapentin to see if more immediate effect- watch for sedation cortes combined with clonazepam- 11/01 still very anxious, paralyzed by indecision, depressed; increasing Vrayar 11/02 pt remains paralyzed by her worries, fearful, tearful; expresses frustration/shame at struggles making choices overwhelmed at thought of choosing cloths, food off the menu. discussed med management and pt agrees to try Trileptal to see if it can help w/ anxiety given that Lamictal takes a while to reach therapeutic dose. -medication alone will not be enough to stabilize patient: -Team/OT discussed and created extensive behavioral/therapeutic CBT based plan which includes gradually increased tasks including picking foods off simplified menu, slowly adding choice of cloths... 11/03: continue current tx plan. 11/04 remains very anixous, paralyzed by OCD symptoms rendering unable to make decisions w/out extreme stress and anxiety; seems that Thorazine prn has lowered a little anxiety so will add to regimen. Pt now on 3 antipsychotics; she is miserable, suffering and tying to find regimen that works; will aim to eliminate one antipsychotic but for time being trying to get pt relief from overwhelming anxiety. Increasing Trileptal to 300mg BID. Not sure that Vraylar is helping but will keep for now. 11/05 Patient remains severely disabled by anxiety, walking up and down the [place] in tears, talking about how she is afraid. Patient benefited from Thorazine 75 mg which did reduce her anxiety considerably though only temporarily. -Discussed case with Dr. Bryant who treated patient in the past though her symptoms were similarly very difficult to treat, he thought she improved on combination of clozapine, Haldol, Depakote and propranolol. Also agreed with titrating Trileptal for anxiety and which is used in some cases for carrol. Clozaril and Depakote or currently on hold, given some side effects and inconvenience; propranolol as an option. -Vraylar has not seemed to help so will likely DC now that Thorazine has proven somewhat helpful; increasing Trileptal; considering scheduling Thorazine 11/06 Ever so slightly better. Patient remains very anxious and with much difficulty getting dressed her making any decisions. However her affect is a little less anxious and her cousin who visited today agrees. Discussed medication regimen at length and agreed to continue on current treatment plan. Patient had what looked like a dystonic reaction however she kept saying it was just that her tongue was dry. Gave patient Benadryl 50 mg which to tag writer, seemed to make it better however patient did not think so. She is on Cogentin 1 mg b.i.d. which ostensibly should prevent dystonia however it is still unclear to tag writer what occurred today. Cousin said that this happens from time to time and she has understood it to be dry mouth secondary to medication. [employer] educated both on the side effect of dystonia for which they will monitor. -will add Benadryl 50 mg as a p.r.n. in case of dystonic reaction 11/07 same presentation; no tongue/mouth issues 11/08 Patient remains with considerable struggles completing tasks, dealing with a close due to excessive worrying. Discussed medication regimen and now that patient seems to have stabilized some discussing whether to start TCA for OCD. Patient has decompensated with SSRIs and there remain some risk with TCAs as well, however OCD symptoms are crippling and patient is desperate for relief. -consulting with Dr. Bryant; will reach out to outpatient provider to get additional history on medication trials 11/09 Patient doing a little better and actually smiling and laughing some while talking with tag writer. Still gets very anxious when talking about dealing with her clothes/laundry but can pull herself out of it a little faster than before. Patient said she is pretty anxious about returning to her sister/cousin's house. She loves her cousin but can get very frustrated there; patient becomes tearful thinking about it. Discussed medication and ambivalence about whether to add clomipramine. Patient is doing a little better but still remains quite paralyzed by her excessive OCD type worries. Patient agrees to trial to see how it goes 11/10 more tearful and anxious than yesterday 11/11 pt crying so much, unable to have much of a discussion; beside herself regarding cloths (for which pt receives much help from staff). Discussed meds and she agrees to increase Lamictal. -will DC Clomipramine; some concern that patients increased tearfulness over past 2 days as team agrees she has decompenstated a little bit since started. Of course this may not be the cause, but since she was progressing some before clomipramine was started will dc -further discussed treatment plan with OT and it is agreed that having patient deal with her laundry is simply too triggering for her right now; will remove this from her behavioral plan to see if she can further stabilize. 11/12- Continue tx. 11/14/2023: Continue current regimen and plans. CONSIDER: Scheduling Thorazine; propranolol; maximizing Trileptal, Zyprexa, low-dose Depakote... TCA clomipramine Plan CV Q 15 -DISCONTINUEd Clomipramine 25mg qhs; starting this med on 11/09 correlated with decompensation; could be a simple coincidence however not worth the risk at this time -will increase to Lamictal 25mg b.i.d. on 11/13 -continue Benadryl 50 mg p.r.n. for dystonia -Continue Thorazine 50mg TID PRN for anxiety/agitation (will dc haldol prn and hydroxyzine prn since not helping) -Continue Thorazine 50mg TiD -continue haldol dec 100mg IM received November 10 -continue gabapentin to 300mg TId to see if can help with anxiety (started for foot pain, however, pain is new, from walking halls) -Continue Trileptal 300mg t.i.d. for anxiety; will titrate; not sure if will be helpful, but few options left to address anxiety as Vraylar/lamictal become theapeutic -working with OT for help with CBT -DC Vraylar 4.5mg has not seem to help -look further into MRI impression -DC'd Prozac concern for bipolar disorder, dry mouth -Neurology/EEG: Previously she has reported some symptoms suggestive of complex partial seizures and had mildly abnormal EEG. At this time her presentation was different but I would suggest obtaining an EEG again. In addition, if a mood stabilizer is needed, I would recommend using lamotrigine, topiramate, or valproic acid. -Neurology consult 10/24 Dr. Ma, 47 years old woman admitted in hospital with severe depression and self-harm type of behavior. Couple of years ago she was admitted in hospital and reported episodes of her patel type of feeling going to her head lasting for seconds to minutes. At that time an EEG revealed left temporal sharp waves. CT scan and MRI of brain were okay. -however, [facility] MRI concerns; tag writer able to read impression from [facility] 09/17/23 which does refer to lesion Right Frontal lobe (not in [facility]); will discuss with neuro Med trials: Haldol: worked the best ! Lamictal: did not seem to help, but...may have been too low a dose Fluvoxamine? not sure if helpful ECT: no help; memory loss Vraylar 4.5mg has not seemed to help Clozapine: did not tolerate frequent blood draws abilify: severe restlessness Risperdal: severe restlessness [place]: bed-wetting; not sure if helped Depakote: muscle cramps, restless... Latuda: TD Seroquel 50 mg Q 4 p.r.n. (makes aggressive) Nuedexta (Dextromethorphan /Quinidine) for uncontrollable crying/laughing Oxybutynin 10 mg Propranolol 20 mg t.i.d. hx: -Psych admission 2019 [place] -[facility]idential for 1 year 2019- did ok, ups/downs; lots of med changes -Home with Cousin 2020-current: past 2.5 years overall good enough, lots of up/downs and med changes BETH and some trouble breathing? Seratonin Syndrom on some meds for depression? (not sure details) -Thinks recent decomp result of adding Paxil which caused high irritability/manic/obsessive and then Prozac which caused the same; since then, outpt provider trying to do a reset on meds... Says when at home w/ Cousin, ups/downs but was able to overall function at home with sufficient good enough periods where she'd go out and do activities (with help), put on makeup, enjoy things...Sayda reports constant medication changes making it difficult to know what meds worked or at least were partially helpful...wonders that during down times, it would be better to just wait it out rather than make med changes. Thinks recent decomp result of adding Paxil which caused high irritability/manic/obsessive and then Prozac which caused the same; since then, outpt provider trying to do a reset on meds.. Reason for continued inpatient stay Substantial Risk for: med/psych decompensation Time Spent With Patient Time: Total time managing care of this patient today ____ minutes.
[2023-11-14 16:39] VITALS: BP 131/83; PULSE 110; RESP 16; TEMP 36.3; O2SAT 99
[2023-11-14] MEDS: clonazePAM 1 MG TABLET PO (16:43)
[2023-11-15 06:00] VITALS: BP 99/71; PULSE 94; RESP 18; TEMP 36.3; O2SAT 100
[2023-11-15] MEDS: Levothyroxine Sodium 75 MCG TABLET PO (06:13)
[2023-11-15] MEDS: Omeprazole 20 MG CAPSULE.DR PO (06:13)
[2023-11-15] MEDS: Cholecalciferol (Vitamin D3) 25 MCG TABLET PO (09:05)
[2023-11-15] MEDS: Benztropine Mesylate 1 MG TABLET PO ×2 (09:05→20:28)
[2023-11-15] MEDS: Gabapentin 300 MG CAPSULE PO ×3 (09:05→20:28)
[2023-11-15] MEDS: lamoTRIgine 25 MG TABLET PO ×2 (09:05→20:28)
[2023-11-15] MEDS: OXcarbazepine 300 MG TABLET PO ×3 (09:05→20:27)
[2023-11-15] MEDS: chlorproMAZINE HCl 25 MG TABLET 50 MG PO ×3 (09:05→20:28)
--- NOTE | 2023-11-15 09:32 | P.PNPSI_ITS ---
Subjective Subjective Date of Service: 11/15/23 Reason For Visit: Bipolar Disorder Subjective Notes: Conditional Voluntary Interim History: Patient was seen and discussed in rounds today. Records and plans were reviewed. She has been anxious with flat affect. She is eating 50% or so of her meals. Periods of pacing and at times tearful. She is safe with no suicidal ideations of concern. No complaints or side effects. No changes were made today. Medication Compliance: Yes Side effects from medications: No Attending Groups: Intermittent Review of Systems Review of Systems Yes all other systems are reviewed and are negative Mental Status Exam Mental Status Exam Patient Appearance: Fatigued and Appropriate Patient Orientation: Person, Place and Situation Level of Consciousness: Alert Patient Behavior: Talkative and Crying Mood Description: Depressed Affect Description: Flat Patient Cognition Impaired: Yes Ability to Follow Directions: Good Speech Pattern: Spontaneous Speech Memory Description: Episodic Impaired Hallucinations: None Perceptual Disturbances: Depersonalization Thought Process: Rumination Thought Content: positive for Suicidal Ideation (denies) Depressive Symptoms: Increased Anxiety, Low Self Esteem and Difficulty Concentrating Judgement: Poor Diagnostics Vital Signs (24Hr): Vital Signs - 24 hr 11/14/23 16:39 Temperature 97.3 F Pulse Rate 110 H Respiratory Rate 16 Blood Pressure 131/83 Pulse Oximetry 99 Oxygen Delivery Method Room Air BMI result Body Mass Index 33.9 Labs 10/20/23 20:19 10/20/23 20:19 Medications Medications Current Medications Acetaminophen (Acetaminophen 325 Mg Tablet) 650 mg PO Q6H PRN PRN Reason: Headache/Pain Scale (1-10) Al Hydroxide/Mg Hydroxide (Magnesium Hydrox/Alum Hydrox 30 Ml Oral.Susp) 30 ml PO Q6H PRN PRN Reason: Heartburn/Nausea Last Admin: 10/27/23 13:38 Dose: 30 ml Benztropine Mesylate (Benztropine Mesylate 1 Mg Tablet) 1 mg PO BID [facility] Last Admin: 11/15/23 09:05 Dose: 1 mg Chlorpromazine HCl (Chlorpromazine Hcl 25 Mg Tablet) 50 mg PO TID [facility] Last Admin: 11/15/23 09:05 Dose: 50 mg Chlorpromazine HCl (Chlorpromazine Hcl 25 Mg Tablet) 50 mg PO QID PRN PRN Reason: anxiety/agitation Last Admin: 11/14/23 16:43 Dose: 50 mg Clonazepam (Clonazepam 1 Mg Tablet) 1 mg PO TID PRN PRN Reason: panic attack Last Admin: 11/14/23 16:43 Dose: 1 mg Diphenhydramine HCl (Diphenhydramine Hcl 25 Mg Capsule) 50 mg PO Q6H PRN PRN Reason: DYStonia Last Admin: 11/07/23 19:30 Dose: 50 mg Gabapentin (Gabapentin 300 Mg Capsule) 300 mg PO TID [facility] Last Admin: 11/15/23 09:05 Dose: 300 mg Haloperidol Decanoate (Haloperidol Decanoate 50 Mg/Ml Vial) 100 mg IM Q28D [facility] Last Admin: 11/11/23 10:26 Dose: 100 mg Lamotrigine (Lamotrigine 25 Mg Tablet) 25 mg PO BID [facility] Last Admin: 11/15/23 09:05 Dose: 25 mg Levothyroxine Sodium (Levothyroxine Sodium 75 Mcg Tablet) 75 mcg PO DAILY@0630 [facility] Last Admin: 11/15/23 06:13 Dose: 75 mcg Magnesium Hydroxide (Milk Of Magnesia 30 Ml Oral.Susp) 30 ml PO DAILY PRN PRN Reason: Constipation Last Admin: 11/03/23 05:11 Dose: 30 ml Omeprazole (Omeprazole 20 Mg Capsule.Dr) 20 mg PO DAILY@0630 [facility] Last Admin: 11/15/23 06:13 Dose: 20 mg Oxcarbazepine (Oxcarbazepine 300 Mg Tablet) 300 mg PO TID [facility] Last Admin: 11/15/23 09:05 Dose: 300 mg Saliva Substitute (Dry Mouth Shafer 60 Ml Shafer) 1 spray MUCOUS MEM Q2H PRN PRN Reason: dry mouth Last Admin: 11/13/23 20:58 Dose: 1 spray Trazodone HCl (Trazodone Hcl 50 Mg Tablet) 50 mg PO BEDTIME MRX1 PRN PRN Reason: Insomnia Last Admin: 11/13/23 20:55 Dose: 50 mg Vitamin D (Cholecalciferol (Vitamin D3) 25 Mcg Tablet) 25 mcg PO DAILY [facility] Last Admin: 11/15/23 09:05 Dose: 25 mcg Allergies Allergies Allergy/AdvReac Type Severity Reaction Status Date / Time aripiprazole Allergy Mild Unknown Verified 10/07/23 07:50 bupropion AdvReac Unknown Verified 10/07/23 07:50 divalproex sodium AdvReac Unknown Verified 10/07/23 07:50 [From Depakote] risperidone AdvReac Unknown Verified 10/07/23 07:50 Assessment & Plan Assessment & Plan (1) Bipolar 1 disorder, mixed: Status: Acute Code(s): F31.60 - Bipolar disorder, current episode mixed, unspecified Assessment and Plan: 11/01/23 discussed trying gabapentin, tried to review prior hx of this but seems like hx is archived or I couldn't figure out how to access it- (2) OCD (obsessive compulsive disorder): Qualifiers: Obsessive-compulsive disorder type: mixed obsessional thoughts and acts Qualified Code(s): F42.2 - Mixed obsessional thoughts and acts Status: Acute Code(s): F42.9 - Obsessive-compulsive disorder, unspecified (3) Abnormal EEG: Status: Acute Code(s): R94.01 - Abnormal electroencephalogram [EEG] Assessment and Plan: 47 years old woman who was admitted in hospital with severe depression. Previously she has reported some symptoms suggestive of complex partial seizures and had mildly abnormal EEG. At this time her presentation was different but I would suggest obtaining an EEG again. In addition, if a mood stabilizer is needed, I would recommend using lamotrigine, topiramate, or valproic acid. (4) History of electroconvulsive therapy: Status: Acute Code(s): Z98.890 - Other specified postprocedural states Assessment and Plan: Pt reports this didn't help her last time she tried Plan 47 yo woman with chronic Bipolar Disorder and OCD with severe anxiety and restlessness, intrusive behavior, ruminating and pacing in need of hospital treatment admitted on CV to [facility]. Impression/decision making: History of difficult to treat bipolar depression, OCD. Haldol has been helpful and pt will continue on it, but many other failed med trials including antipsychotics, mood stabilizers and SSRI's; ECT in past not helpful (maybe because hard to get good seizure since on benzos/depakote?). Pt started on Vraylar for bipolar depression and Lamictal for OCD (and depression/anxiety). Hospital course: 10/24: Neurology saw patient recommended repeat EEG. ?ECT. Clarify Depakote allergy. 10/26: Continue current management and treatment plan. Repeat EEG pending. telephone call to adrien Alfredo and email to arrange a time to talk with her about medication reactions as pt does not recall; increase vraylar to 3mg daily 10/27 continue plan; waiting to hear back from Sayda re medication reaction but have the list of meds with which she had poor reactions. consider increase vraylar if needed and consider scheduled clonazepam; Sayda (cousin) reports pt has a referral to [facility] neurology already for after care but no appt yet. 10/28 Patient tearful, hard to express herself through emotions; saying that she is scared she will never get better, trying to push herself to go to groups... She is following staff's recommendations at behavioral activation however it is also causing her some stress as she can not tell how long she supposed to be out of her room, engaged with others feeling very unable to decide how much time she should be allowed to stay in her room by herself.... Medical Parasitologist tried to talk this through with her but patient had a hard time discussing therapeutic approaches to to her emotionality. That said, patient feels somewhat improved since she 1st came in and said that she is feeling so-so in addition to being scared and anxious. She does say however that she is suffering which is apparent. -Patient said that the last time she was hospitalized was in 2019 and when discharged, was overall feeling that she was doing pretty well. Discussed medication regimen and patient is not sure why medications were changed over these years but she agrees to get back on past regimen; also discussed ECT but patient can not remember if she thought this was helpful or not. Patient gave permission to talk to her provider, her cousin who is also her healthcare proxy. Per staff, covering provider, pt improved a little since admission: She is less tearful and no begging, getting on her knees with hands clapsed as she did on first day; -pt tolerating the vraylar which was increased to 3mg yesterday. pt remains tortured by worries, depression, indecisiveness...though a little less intensely so then on admission. Pt says it's very hard for her to do anything and she just wants to go lie in bed; however, she agrees to force herself to groups. Apologetically Rejects some activities recommended saying she's too anxious to attend. -cousin/HCP Sayda: gave hx -Says Haldol has historically worked the best; agrees with re-trial of Lamicta; continue w/ Vraylar -She voiced [facility] MRI concerns; journalists and other writers able to read impression which does refer to lesion Right Frontal lobe (not in meditech) 10/29 pt agrees she's doing a little better...says a little less anxious-maybe due to Vraylar; affect is more calm; agrees to continue -continues to feel depressed and struggles with both ocd-obsessional worries and indecisiveness (can't tolerate picking out menu, cloths...what to do w/ time). Agrees to restart Lamictal to help w/ OCD 10/31/23 CTP (started on vraylar and lamotrigine) 11/01/23 added gabapentin to see if more immediate effect- watch for sedation cortes combined with clonazepam- 11/01 still very anxious, paralyzed by indecision, depressed; increasing Vrayar 11/02 pt remains paralyzed by her worries, fearful, tearful; expresses frustration/shame at struggles making choices overwhelmed at thought of choosing cloths, food off the menu. discussed med management and pt agrees to try Trileptal to see if it can help w/ anxiety given that Lamictal takes a while to reach therapeutic dose. -medication alone will not be enough to stabilize patient: -Team/OT discussed and created extensive behavioral/therapeutic CBT based plan which includes gradually increased tasks including picking foods off simplified menu, slowly adding choice of cloths... 11/03: continue current tx plan. 11/04 remains very anixous, paralyzed by OCD symptoms rendering unable to make decisions w/out extreme stress and anxiety; seems that Thorazine prn has lowered a little anxiety so will add to regimen. Pt now on 3 antipsychotics; she is miserable, suffering and tying to find regimen that works; will aim to eliminate one antipsychotic but for time being trying to get pt relief from overwhelming anxiety. Increasing Trileptal to 300mg BID. Not sure that Vraylar is helping but will keep for now. 11/05 Patient remains severely disabled by anxiety, walking up and down the [place] in tears, talking about how she is afraid. Patient benefited from Thorazine 75 mg which did reduce her anxiety considerably though only temporarily. -Discussed case with Dr. Bryant who treated patient in the past though her symptoms were similarly very difficult to treat, he thought she improved on combination of clozapine, Haldol, Depakote and propranolol. Also agreed with titrating Trileptal for anxiety and which is used in some cases for carrol. Clozaril and Depakote or currently on hold, given some side effects and inconvenience; propranolol as an option. -Vraylar has not seemed to help so will likely DC now that Thorazine has proven somewhat helpful; increasing Trileptal; considering scheduling Thorazine 11/06 Ever so slightly better. Patient remains very anxious and with much difficulty getting dressed her making any decisions. However her affect is a little less anxious and her cousin who visited today agrees. Discussed medication regimen at length and agreed to continue on current treatment plan. Patient had what looked like a dystonic reaction however she kept saying it was just that her tongue was dry. Gave patient Benadryl 50 mg which to journalists and other writers, seemed to make it better however patient did not think so. She is on Cogentin 1 mg b.i.d. which ostensibly should prevent dystonia however it is still unclear to journalists and other writers what occurred today. Cousin said that this happens from time to time and she has understood it to be dry mouth secondary to medication. Medical Parasitologist educated both on the side effect of dystonia for which they will monitor. -will add Benadryl 50 mg as a p.r.n. in case of dystonic reaction 11/07 same presentation; no tongue/mouth issues 11/08 Patient remains with considerable struggles completing tasks, dealing with a close due to excessive worrying. Discussed medication regimen and now that patient seems to have stabilized some discussing whether to start TCA for OCD. Patient has decompensated with SSRIs and there remain some risk with TCAs as well, however OCD symptoms are crippling and patient is desperate for relief. -consulting with Dr. Bryant; will reach out to outpatient provider to get additional history on medication trials 11/09 Patient doing a little better and actually smiling and laughing some while talking with journalists and other writers. Still gets very anxious when talking about dealing with her clothes/laundry but can pull herself out of it a little faster than before. Patient said she is pretty anxious about returning to her sister/cousin's house. She loves her cousin but can get very frustrated there; patient becomes tearful thinking about it. Discussed medication and ambivalence about whether to add clomipramine. Patient is doing a little better but still remains quite paralyzed by her excessive OCD type worries. Patient agrees to trial to see how it goes 11/10 more tearful and anxious than yesterday 11/11 pt crying so much, unable to have much of a discussion; beside herself regarding cloths (for which pt receives much help from staff). Discussed meds and she agrees to increase Lamictal. -will DC Clomipramine; some concern that patients increased tearfulness over past 2 days as team agrees she has decompenstated a little bit since started. Of course this may not be the cause, but since she was progressing some before clomipramine was started will dc -further discussed treatment plan with OT and it is agreed that having patient deal with her laundry is simply too triggering for her right now; will remove this from her behavioral plan to see if she can further stabilize. 11/12- Continue tx. 11/14/2023: Continue current regimen and plans. 11/15/2023: Continue current regimen and plans CONSIDER: Scheduling Thorazine; propranolol; maximizing Trileptal, Zyprexa, low-dose Depakote... TCA clomipramine Plan CV Q 15 -DISCONTINUEd Clomipramine 25mg qhs; starting this med on 11/09 correlated with decompensation; could be a simple coincidence however not worth the risk at this time -will increase to Lamictal 25mg b.i.d. on 11/13 -continue Benadryl 50 mg p.r.n. for dystonia -Continue Thorazine 50mg TID PRN for anxiety/agitation (will dc haldol prn and hydroxyzine prn since not helping) -Continue Thorazine 50mg TiD -continue haldol dec 100mg IM received November 10 -continue gabapentin to 300mg TId to see if can help with anxiety (started for foot pain, however, pain is new, from walking halls) -Continue Trileptal 300mg t.i.d. for anxiety; will titrate; not sure if will be helpful, but few options left to address anxiety as Vraylar/lamictal become theapeutic -working with OT for help with CBT -DC Vraylar 4.5mg has not seem to help -look further into MRI impression -DC'd Prozac concern for bipolar disorder, dry mouth -Neurology/EEG: Previously she has reported some symptoms suggestive of complex partial seizures and had mildly abnormal EEG. At this time her presentation was different but I would suggest obtaining an EEG again. In addition, if a mood stabilizer is needed, I would recommend using lamotrigine, topiramate, or valproic acid. -Neurology consult 10/24 Dr. Ma, 47 years old woman admitted in hospital with severe depression and self-harm type of behavior. Couple of years ago she was admitted in hospital and reported episodes of her patel type of feeling going to her head lasting for seconds to minutes. At that time an EEG revealed left temporal sharp waves. CT scan and MRI of brain were okay. -however, [facility] MRI concerns; journalists and other writers able to read impression from [facility] 09/17/23 which does refer to lesion Right Frontal lobe (not in meditech); will discuss with neuro Med trials: Haldol: worked the best ! Lamictal: did not seem to help, but...may have been too low a dose Fluvoxamine? not sure if helpful ECT: no help; memory loss Vraylar 4.5mg has not seemed to help Clozapine: did not tolerate frequent blood draws abilify: severe restlessness Risperdal: severe restlessness [place]: bed-wetting; not sure if helped Depakote: muscle cramps, restless... Latuda: TD Seroquel 50 mg Q 4 p.r.n. (makes aggressive) Nuedexta (Dextromethorphan /Quinidine) for uncontrollable crying/laughing Oxybutynin 10 mg Propranolol 20 mg t.i.d. hx: -Psych admission 2019 [place] -Residential for 1 year 2019- did ok, ups/downs; lots of med changes -Home with Cousin 2020-current: past 2.5 years overall good enough, lots of up/downs and med changes BETH and some trouble breathing? Seratonin Syndrom on some meds for depression? (not sure details) -Thinks recent decomp result of adding Paxil which caused high irritability/manic/obsessive and then Prozac which caused the same; since then, outpt provider trying to do a reset on meds... Says when at home w/ Cousin, ups/downs but was able to overall function at home with sufficient good enough periods where she'd go out and do activities (with help), put on makeup, enjoy things...Sayda reports constant medication changes making it difficult to know what meds worked or at least were partially helpful...wonders that during down times, it would be better to just wait it out rather than make med changes. Thinks recent decomp result of adding Paxil which caused high irritability/manic/obsessive and then Prozac which caused the same; since then, outpt provider trying to do a reset on meds.. Reason for continued inpatient stay Substantial Risk for: med/psych decompensation Time Spent With Patient Time: Total time managing care of this patient today ____ minutes.
[2023-11-15 18:00] VITALS: BP 110/68; PULSE 96; RESP 18; TEMP 36.7; O2SAT 98
[2023-11-16] MEDS: Levothyroxine Sodium 75 MCG TABLET PO (06:36)
[2023-11-16] MEDS: Omeprazole 20 MG CAPSULE.DR PO (06:36)
[2023-11-16 07:59] VITALS: BP 123/88; PULSE 90; RESP 18; TEMP 36.5; O2SAT 100
--- NOTE | 2023-11-16 08:01 | P.PNPSI_ITS ---
Subjective Subjective Date of Service: 11/16/23 Reason For Visit: Bipolar Disorder Interim History: Met with patient; discussed with team; reviewed chart Patient consumed with anxiety regarding laundry; discussed with OT who agreed to take away chore of doing laundry...which will hopefully reduce patient's anxiety. Tolerating increased dose of Lamictal Mental Status Exam Mental Status Exam Narrative: Pt is alert and oriented; behavior anxious and intermittently tearful; cooperative; dressed in casual attire with good hygiene; mood is described as frustrated and affect congruent, tearful; eye contact appropriate; Speech is normal rate, volume and prosody and not pressured; both psychomotor agitation intermittently present; thought process is organized and goal directed; Thought content is on OCD struggles, fearfulness, anxiety, tx; otherwise pertinent to relevant topics and without any delusional content, paranoid ideations or grandiosity; denies any SI/HI. There is no evidence of perceptual disturbance. Patients insight and judgment impaired but improved an adequate Diagnostics Vital Signs (24Hr): Vital Signs - 24 hr 11/15/23 18:00 11/16/23 07:59 Temperature 98.0 F 97.7 F Pulse Rate 96 90 Respiratory Rate 18 18 Blood Pressure 110/68 123/88 Pulse Oximetry 98 100 Oxygen Delivery Method Room Air Room Air BMI result Body Mass Index 33.9 Labs 10/20/23 20:19 10/20/23 20:19 Medications Medications Current Medications Acetaminophen (Acetaminophen 325 Mg Tablet) 650 mg PO Q6H PRN PRN Reason: Headache/Pain Scale (1-10) Al Hydroxide/Mg Hydroxide (Magnesium Hydrox/Alum Hydrox 30 Ml Oral.Susp) 30 ml PO Q6H PRN PRN Reason: Heartburn/Nausea Last Admin: 10/27/23 13:38 Dose: 30 ml Benztropine Mesylate (Benztropine Mesylate 1 Mg Tablet) 1 mg PO BID [facility] Last Admin: 11/15/23 20:28 Dose: 1 mg Chlorpromazine HCl (Chlorpromazine Hcl 25 Mg Tablet) 50 mg PO TID [facility] Last Admin: 11/15/23 20:28 Dose: 50 mg Chlorpromazine HCl (Chlorpromazine Hcl 25 Mg Tablet) 50 mg PO QID PRN PRN Reason: anxiety/agitation Last Admin: 11/14/23 16:43 Dose: 50 mg Clonazepam (Clonazepam 1 Mg Tablet) 1 mg PO TID PRN PRN Reason: panic attack Last Admin: 11/14/23 16:43 Dose: 1 mg Diphenhydramine HCl (Diphenhydramine Hcl 25 Mg Capsule) 50 mg PO Q6H PRN PRN Reason: DYStonia Last Admin: 11/07/23 19:30 Dose: 50 mg Gabapentin (Gabapentin 300 Mg Capsule) 300 mg PO TID [facility] Last Admin: 11/15/23 20:28 Dose: 300 mg Haloperidol Decanoate (Haloperidol Decanoate 50 Mg/Ml Vial) 100 mg IM Q28D [facility] Last Admin: 11/11/23 10:26 Dose: 100 mg Lamotrigine (Lamotrigine 25 Mg Tablet) 25 mg PO BID [facility] Last Admin: 11/15/23 20:28 Dose: 25 mg Levothyroxine Sodium (Levothyroxine Sodium 75 Mcg Tablet) 75 mcg PO DAILY@0630 [facility] Last Admin: 11/16/23 06:36 Dose: 75 mcg Magnesium Hydroxide (Milk Of Magnesia 30 Ml Oral.Susp) 30 ml PO DAILY PRN PRN Reason: Constipation Last Admin: 11/03/23 05:11 Dose: 30 ml Omeprazole (Omeprazole 20 Mg Capsule.Dr) 20 mg PO DAILY@629 [facility] Last Admin: 11/16/23 06:36 Dose: 20 mg Oxcarbazepine (Oxcarbazepine 300 Mg Tablet) 300 mg PO TID [facility] Last Admin: 11/15/23 20:27 Dose: 300 mg Saliva Substitute (Dry Mouth Ada 60 Ml Ada) 1 spray MUCOUS MEM Q2H PRN PRN Reason: dry mouth Last Admin: 11/13/23 20:58 Dose: 1 spray Trazodone HCl (Trazodone Hcl 50 Mg Tablet) 50 mg PO BEDTIME MRX1 PRN PRN Reason: Insomnia Last Admin: 11/13/23 20:55 Dose: 50 mg Vitamin D (Cholecalciferol (Vitamin D3) 25 Mcg Tablet) 25 mcg PO DAILY [facility] Last Admin: 11/15/23 09:05 Dose: 25 mcg Allergies Allergies Allergy/AdvReac Type Severity Reaction Status Date / Time aripiprazole Allergy Mild Unknown Verified 10/07/23 07:50 bupropion AdvReac Unknown Verified 10/07/23 07:50 divalproex sodium AdvReac Unknown Verified 10/07/23 07:50 [From Depakote] risperidone AdvReac Unknown Verified 10/07/23 07:50 Assessment & Plan Assessment & Plan (1) Bipolar 1 disorder, mixed: Status: Acute Code(s): F31.60 - Bipolar disorder, current episode mixed, unspecified Assessment and Plan: 11/01/23 discussed trying gabapentin, tried to review prior hx of this but seems like hx is archived or I couldn't figure out how to access it- (2) OCD (obsessive compulsive disorder): Qualifiers: Obsessive-compulsive disorder type: mixed obsessional thoughts and acts Qualified Code(s): F42.2 - Mixed obsessional thoughts and acts Status: Acute Code(s): F42.9 - Obsessive-compulsive disorder, unspecified (3) Abnormal EEG: Status: Acute Code(s): R94.01 - Abnormal electroencephalogram [EEG] Assessment and Plan: 47 years old woman who was admitted in hospital with severe depression. Previously she has reported some symptoms suggestive of complex partial seizures and had mildly abnormal EEG. At this time her presentation was different but I would suggest obtaining an EEG again. In addition, if a mood stabilizer is needed, I would recommend using lamotrigine, topiramate, or valproic acid. (4) History of electroconvulsive therapy: Status: Acute Code(s): Z98.890 - Other specified postprocedural states Assessment and Plan: Pt reports this didn't help her last time she tried Plan 47 yo woman with chronic Bipolar Disorder and OCD with severe anxiety and restlessness, intrusive behavior, ruminating and pacing in need of hospital treatment admitted on CV to [facility]. Impression/decision making: History of difficult to treat bipolar depression, OCD. Haldol has been helpful and pt will continue on it, but many other failed med trials including antipsychotics, mood stabilizers and SSRI's; ECT in past not helpful (maybe because hard to get good seizure since on benzos/depakote?). Pt started on Vraylar for bipolar depression and Lamictal for OCD (and depression/anxiety). Hospital course: 10/24: Neurology saw patient recommended repeat EEG. ?ECT. Clarify Depakote allergy. 10/26: Continue current management and treatment plan. Repeat EEG pending. telephone call to adrien Alfredo and email to arrange a time to talk with her about medication reactions as pt does not recall; increase vraylar to 3mg daily 10/27 continue plan; waiting to hear back from Sayda re medication reaction but have the list of meds with which she had poor reactions. consider increase vraylar if needed and consider scheduled clonazepam; Sayda (cousin) reports pt has a referral to [facility] neurology already for after care but no appt yet. 10/28 Patient tearful, hard to express herself through emotions; saying that she is scared she will never get better, trying to push herself to go to groups... She is following staff's recommendations at behavioral activation however it is also causing her some stress as she can not tell how long she supposed to be out of her room, engaged with others feeling very unable to decide how much time she should be allowed to stay in her room by herself.... Volleyball Commentator tried to talk this through with her but patient had a hard time discussing therapeutic approaches to to her emotionality. That said, patient feels somewhat improved since she 1st came in and said that she is feeling so-so in addition to being scared and anxious. She does say however that she is suffering which is apparent. -Patient said that the last time she was hospitalized was in 2019 and when discharged, was overall feeling that she was doing pretty well. Discussed medication regimen and patient is not sure why medications were changed over these years but she agrees to get back on past regimen; also discussed ECT but patient can not remember if she thought this was helpful or not. Patient gave permission to talk to her provider, her cousin who is also her healthcare proxy. Per staff, covering provider, pt improved a little since admission: She is less tearful and no begging, getting on her knees with hands clapsed as she did on first day; -pt tolerating the vraylar which was increased to 3mg yesterday. pt remains tortured by worries, depression, indecisiveness...though a little less intensely so then on admission. Pt says it's very hard for her to do anything and she just wants to go lie in bed; however, she agrees to force herself to groups. Apologetically Rejects some activities recommended saying she's too anxious to attend. -cousin/HCP Sayda: gave hx -Says Haldol has historically worked the best; agrees with re-trial of Lamicta; continue w/ Vraylar -She voiced [facility] MRI concerns; typewriter mechanic able to read impression which does refer to lesion Right Frontal lobe (not in meditech) 10/29 pt agrees she's doing a little better...says a little less anxious-maybe due to Vraylar; affect is more calm; agrees to continue -continues to feel depressed and struggles with both ocd-obsessional worries and indecisiveness (can't tolerate picking out menu, cloths...what to do w/ time). Agrees to restart Lamictal to help w/ OCD 10/31/23 CTP (started on vraylar and lamotrigine) 11/01/23 added gabapentin to see if more immediate effect- watch for sedation cortes combined with clonazepam- 11/01 still very anxious, paralyzed by indecision, depressed; increasing Vrayar 11/02 pt remains paralyzed by her worries, fearful, tearful; expresses frustration/shame at struggles making choices overwhelmed at thought of choosing cloths, food off the menu. discussed med management and pt agrees to try Trileptal to see if it can help w/ anxiety given that Lamictal takes a while to reach therapeutic dose. -medication alone will not be enough to stabilize patient: -Team/OT discussed and created extensive behavioral/therapeutic CBT based plan which includes gradually increased tasks including picking foods off simplified menu, slowly adding choice of cloths... 11/03: continue current tx plan. 11/04 remains very anixous, paralyzed by OCD symptoms rendering unable to make decisions w/out extreme stress and anxiety; seems that Thorazine prn has lowered a little anxiety so will add to regimen. Pt now on 3 antipsychotics; she is miserable, suffering and tying to find regimen that works; will aim to eliminate one antipsychotic but for time being trying to get pt relief from overwhelming anxiety. Increasing Trileptal to 300mg BID. Not sure that Vraylar is helping but will keep for now. 11/05 Patient remains severely disabled by anxiety, walking up and down the [place] in tears, talking about how she is afraid. Patient benefited from Thorazine 75 mg which did reduce her anxiety considerably though only temporarily. -Discussed case with Dr. Bryant who treated patient in the past though her symptoms were similarly very difficult to treat, he thought she improved on combination of clozapine, Haldol, Depakote and propranolol. Also agreed with titrating Trileptal for anxiety and which is used in some cases for carrol. Clozaril and Depakote or currently on hold, given some side effects and inconvenience; propranolol as an option. -Vraylar has not seemed to help so will likely DC now that Thorazine has proven somewhat helpful; increasing Trileptal; considering scheduling Thorazine 11/06 Ever so slightly better. Patient remains very anxious and with much difficulty getting dressed her making any decisions. However her affect is a little less anxious and her cousin who visited today agrees. Discussed medication regimen at length and agreed to continue on current treatment plan. Patient had what looked like a dystonic reaction however she kept saying it was just that her tongue was dry. Gave patient Benadryl 50 mg which to typewriter mechanic, seemed to make it better however patient did not think so. She is on Cogentin 1 mg b.i.d. which ostensibly should prevent dystonia however it is still unclear to typewriter mechanic what occurred today. Cousin said that this happens from time to time and she has understood it to be dry mouth secondary to medication. Volleyball Commentator educated both on the side effect of dystonia for which they will monitor. -will add Benadryl 50 mg as a p.r.n. in case of dystonic reaction 11/07 same presentation; no tongue/mouth issues 11/08 Patient remains with considerable struggles completing tasks, dealing with a close due to excessive worrying. Discussed medication regimen and now that patient seems to have stabilized some discussing whether to start TCA for OCD. Patient has decompensated with SSRIs and there remain some risk with TCAs as well, however OCD symptoms are crippling and patient is desperate for relief. -consulting with Dr. Bryant; will reach out to outpatient provider to get additional history on medication trials 11/09 Patient doing a little better and actually smiling and laughing some while talking with typewriter mechanic. Still gets very anxious when talking about dealing with her clothes/laundry but can pull herself out of it a little faster than before. Patient said she is pretty anxious about returning to her sister/cousin's house. She loves her cousin but can get very frustrated there; patient becomes tearful thinking about it. Discussed medication and ambivalence about whether to add clomipramine. Patient is doing a little better but still remains quite paralyzed by her excessive OCD type worries. Patient agrees to trial to see how it goes 11/10 more tearful and anxious than yesterday 11/11 pt crying so much, unable to have much of a discussion; beside herself regarding cloths (for which pt receives much help from staff). Discussed meds and she agrees to increase Lamictal. -will DC Clomipramine; some concern that patients increased tearfulness over past 2 days as team agrees she has decompenstated a little bit since started. Of course this may not be the cause, but since she was progressing some before clomipramine was started will dc -further discussed treatment plan with OT and it is agreed that having patient deal with her laundry is simply too triggering for her right now; will remove this from her behavioral plan to see if she can further stabilize. 11/12- Continue tx. 11/14/2023: Continue current regimen and plans. 11/15/2023: Continue current regimen and plans 11/15 Lamictal increased to b.i.d.; taking away chore of doing laundry; will discuss with cousin when she thinks patient is able come home Plan CV Q 15 -DISCONTINUEd Clomipramine 25mg qhs; starting this med on 11/09 correlated with decompensation; could be a simple coincidence however not worth the risk at this time -continue Lamictal 25mg b.i.d. -continue Benadryl 50 mg p.r.n. for dystonia -Continue Thorazine 50mg TID PRN for anxiety/agitation (will dc haldol prn and hydroxyzine prn since not helping) -Continue Thorazine 50mg TiD -continue haldol dec 100mg IM received November 10 -continue gabapentin to 300mg TId to see if can help with anxiety (started for foot pain, however, pain is new, from walking halls) -Continue Trileptal 300mg t.i.d. for anxiety; will titrate; not sure if will be helpful, but few options left to address anxiety as Vraylar/lamictal become theapeutic -working with OT for help with CBT -DC Vraylar 4.5mg has not seem to help -look further into MRI impression -DC'd Prozac concern for bipolar disorder, dry mouth -Neurology/EEG: Previously she has reported some symptoms suggestive of complex partial seizures and had mildly abnormal EEG. At this time her presentation was different but I would suggest obtaining an EEG again. In addition, if a mood stabilizer is needed, I would recommend using lamotrigine, topiramate, or valproic acid. -Neurology consult 10/24 Dr. Ma, 47 years old woman admitted in hospital with severe depression and self-harm type of behavior. Couple of years ago she was admitted in hospital and reported episodes of her patel type of feeling going to her head lasting for seconds to minutes. At that time an EEG revealed left temporal sharp waves. CT scan and MRI of brain were okay. -however, [facility] MRI concerns; typewriter mechanic able to read impression from [facility] 09/17/23 which does refer to lesion [facility] Fr[facility] will discuss with neuro Med trials: Haldol: worked the best ! Lamictal: did not seem to help, but...may have been too low a dose Fluvoxamine? not sure if helpful ECT: no help; memory loss Vraylar 4.5mg has not seemed to help Clozapine: did not tolerate frequent blood draws abilify: severe restlessness Risperdal: severe restlessness [place]: bed-wetting; not sure if helped Depakote: muscle cramps, restless... Latuda: TD Seroquel 50 mg Q 4 p.r.n. (makes aggressive) Nuedexta (Dextromethorphan /Quinidine) for uncontrollable crying/laughing Oxybutynin 10 mg Propranolol 20 mg t.i.d. hx: -Psych admission 2019 [place] -Residential for 1 year 2019- did ok, ups/downs; lots of med changes -Home with Cousin 2020-current: past 2.5 years overall good enough, lots of up/downs and med changes BETH and some trouble breathing? Seratonin Syndrom on some meds for depression? (not sure details) -Thinks recent decomp result of adding Paxil which caused high irritability/manic/obsessive and then Prozac which caused the same; since then, outpt provider trying to do a reset on meds... Says when at home w/ Cousin, ups/downs but was able to overall function at home with sufficient good enough periods where she'd go out and do activities (with help), put on makeup, enjoy things...Sayda reports constant medication changes making it difficult to know what meds worked or at least were partially helpful...wonders that during down times, it would be better to just wait it out rather than make med changes. Thinks recent decomp result of adding Paxil which caused high irritability/manic/obsessive and then Prozac which caused the same; since then, outpt provider trying to do a reset on meds.. Patient educated on: diagnosis and medication risk/benefits Informed Consent: understands Reason for continued inpatient stay Substantial Risk for: rapid decompensation Time Spent With Patient Time: Total time managing care of this patient today ____ minutes.
[2023-11-16] MEDS: chlorproMAZINE HCl 25 MG TABLET 50 MG PO ×4 (09:44→19:46)
[2023-11-16] MEDS: Benztropine Mesylate 1 MG TABLET PO ×2 (09:44→19:47)
[2023-11-16] MEDS: Gabapentin 300 MG CAPSULE PO ×3 (09:45→19:47)
[2023-11-16] MEDS: Cholecalciferol (Vitamin D3) 25 MCG TABLET PO (09:45)
[2023-11-16] MEDS: lamoTRIgine 25 MG TABLET PO ×2 (09:45→19:47)
[2023-11-16] MEDS: OXcarbazepine 300 MG TABLET PO ×3 (09:45→19:47)
[2023-11-16 18:00] VITALS: BP 111/71; PULSE 111; RESP 18; TEMP 36.7; O2SAT 100
[2023-11-16] MEDS: clonazePAM 1 MG TABLET PO (18:22)
[2023-11-16] MEDS: traZODone HCL 50 MG TABLET PO (19:46)
[2023-11-17] MEDS: Levothyroxine Sodium 75 MCG TABLET PO (06:06)
[2023-11-17] MEDS: Omeprazole 20 MG CAPSULE.DR PO (06:06)
[2023-11-17 08:01] VITALS: BP 132/84; PULSE 90; RESP 18; TEMP 36.5; O2SAT 98
[2023-11-17] MEDS: Cholecalciferol (Vitamin D3) 25 MCG TABLET PO (09:10)
[2023-11-17] MEDS: OXcarbazepine 300 MG TABLET PO ×3 (09:10→20:51)
[2023-11-17] MEDS: chlorproMAZINE HCl 25 MG TABLET 50 MG PO ×3 (09:10→20:51)
[2023-11-17] MEDS: lamoTRIgine 25 MG TABLET PO ×2 (09:10→20:51)
[2023-11-17] MEDS: Gabapentin 300 MG CAPSULE PO ×3 (09:10→20:51)
[2023-11-17] MEDS: Benztropine Mesylate 1 MG TABLET PO ×2 (09:10→20:51)
--- NOTE | 2023-11-17 09:45 | HO.PSYCHPN ---
Subjective Subjective Date of Service: 11/17/23 Reason For Visit: Bipolar Disorder Interim History: Met with patient; discussed with team Patient crying and approached song writer; she says do know why I am crying? It is because I am not sure which clothes to wear. Client Account Assistant and patient discussed some therapeutic approaches. Also discussed hope that as Lamictal becomes therapeutic it will hopefully better address OCD symptoms. Mental Status Exam Mental Status Exam Narrative: Pt is alert and oriented; behavior anxious and intermittently tearful; cooperative; dressed in casual attire with good hygiene; mood is described as frustrated and affect congruent, tearful; eye contact appropriate; Speech is normal rate, volume and prosody and not pressured; both psychomotor agitation intermittently present; thought process is organized and goal directed; Thought content is on OCD struggles, fearfulness, anxiety, tx; otherwise pertinent to relevant topics and without any delusional content, paranoid ideations or grandiosity; denies any SI/HI. There is no evidence of perceptual disturbance. Patients insight and judgment impaired but improved an adequate Diagnostics Vital Signs (24Hr): Vital Signs - 24 hr 11/16/23 18:00 11/17/23 08:01 Temperature 98.1 F 97.7 F Pulse Rate 111 H 90 Respiratory Rate 18 18 Blood Pressure 111/71 132/84 Pulse Oximetry 100 98 Oxygen Delivery Method Room Air Room Air BMI result Body Mass Index 33.9 Labs 10/20/23 20:19 10/20/23 20:19 Medications Medications Current Medications Acetaminophen (Acetaminophen 325 Mg Tablet) 650 mg PO Q6H PRN PRN Reason: Headache/Pain Scale (1-10) Al Hydroxide/Mg Hydroxide (Magnesium Hydrox/Alum Hydrox 30 Ml Oral.Susp) 30 ml PO Q6H PRN PRN Reason: Heartburn/Nausea Last Admin: 10/27/23 13:38 Dose: 30 ml Benztropine Mesylate (Benztropine Mesylate 1 Mg Tablet) 1 mg PO BID [facility] Last Admin: 11/17/23 09:10 Dose: 1 mg Chlorpromazine HCl (Chlorpromazine Hcl 25 Mg Tablet) 50 mg PO TID [facility] Last Admin: 11/17/23 09:10 Dose: 50 mg Chlorpromazine HCl (Chlorpromazine Hcl 25 Mg Tablet) 50 mg PO QID PRN PRN Reason: anxiety/agitation Last Admin: 11/16/23 18:22 Dose: 50 mg Clonazepam (Clonazepam 1 Mg Tablet) 1 mg PO TID PRN PRN Reason: panic attack Last Admin: 11/16/23 18:22 Dose: 1 mg Diphenhydramine HCl (Diphenhydramine Hcl 25 Mg Capsule) 50 mg PO Q6H PRN PRN Reason: DYSt[place] Last Admin: 11/07/23 19:30 Dose: 50 mg Gabapentin (Gabapentin 300 Mg Capsule) 300 mg PO TID [facility] Last Admin: 11/17/23 09:10 Dose: 300 mg Haloperidol Decanoate (Haloperidol Decanoate 50 Mg/Ml Vial) 100 mg IM Q28D [facility] Last Admin: 11/11/23 10:26 Dose: 100 mg Lamotrigine (Lamotrigine 25 Mg Tablet) 25 mg PO BID [facility] Last Admin: 11/17/23 09:10 Dose: 25 mg Levothyroxine Sodium (Levothyroxine Sodium 75 Mcg Tablet) 75 mcg PO DAILY@0630 [facility] Last Admin: 11/17/23 06:06 Dose: 75 mcg Magnesium Hydroxide (Milk Of Magnesia 30 Ml Oral.Susp) 30 ml PO DAILY PRN PRN Reason: Constipation Last Admin: 11/03/23 05:11 Dose: 30 ml Omeprazole (Omeprazole 20 Mg Capsule.Dr) 20 mg PO DAILY@30 [facility] Last Admin: 11/17/23 06:06 Dose: 20 mg Oxcarbazepine (Oxcarbazepine 300 Mg Tablet) 300 mg PO TID [facility] Last Admin: 11/17/23 09:10 Dose: 300 mg Saliva Substitute (Dry Mouth [place] 60 Ml [place]) 1 spray MUCOUS MEM Q2H PRN PRN Reason: dry mouth Last Admin: 11/13/23 20:58 Dose: 1 spray Trazodone HCl (Trazodone Hcl 50 Mg Tablet) 50 mg PO BEDTIME MRX1 PRN PRN Reason: Insomnia Last Admin: 11/16/23 19:46 Dose: 50 mg Vitamin D (Cholecalciferol (Vitamin D3) 25 Mcg Tablet) 25 mcg PO DAILY [facility] Last Admin: 11/17/23 09:10 Dose: 25 mcg Allergies Allergies Allergy/AdvReac Type Severity Reaction Status Date / Time aripiprazole Allergy Mild Unknown Verified 10/07/23 07:50 bupropion AdvReac Unknown Verified 10/07/23 07:50 divalproex sodium AdvReac Unknown Verified 10/07/23 07:50 [From Depakote] risperidone AdvReac Unknown Verified 10/07/23 07:50 Assessment & Plan Assessment & Plan (1) Bipolar 1 disorder, mixed: Status: Acute Code(s): F31.60 - Bipolar disorder, current episode mixed, unspecified Assessment and Plan: 11/01/23 discussed trying gabapentin, tried to review prior hx of this but seems like hx is archived or I couldn't figure out how to access it- (2) OCD (obsessive compulsive disorder): Qualifiers: Obsessive-compulsive disorder type: mixed obsessional thoughts and acts Qualified Code(s): F42.2 - Mixed obsessional thoughts and acts Status: Acute Code(s): F42.9 - Obsessive-compulsive disorder, unspecified (3) Abnormal EEG: Status: Acute Code(s): R94.01 - Abnormal electroencephalogram [EEG] Assessment and Plan: 47 years old woman who was admitted in hospital with severe depression. Previously she has reported some symptoms suggestive of complex partial seizures and had mildly abnormal EEG. At this time her presentation was different but I would suggest obtaining an EEG again. In addition, if a mood stabilizer is needed, I would recommend using lamotrigine, topiramate, or valproic acid. (4) History of electroconvulsive therapy: Status: Acute Code(s): Z98.890 - Other specified postprocedural states Assessment and Plan: Pt reports this didn't help her last time she tried Plan 47 yo woman with chronic Bipolar Disorder and OCD with severe anxiety and restlessness, intrusive behavior, ruminating and pacing in need of hospital treatment admitted on CV to [facility]. Impression/decision making: History of difficult to treat bipolar depression, OCD. Haldol has been helpful and pt will continue on it, but many other failed med trials including antipsychotics, mood stabilizers and SSRI's; ECT in past not helpful (maybe because hard to get good seizure since on benzos/depakote?). Pt started on Vraylar for bipolar depression and Lamictal for OCD (and depression/anxiety). Hospital course: 10/24: Neurology saw patient recommended repeat EEG. ?ECT. Clarify Depakote allergy. 10/26: Continue current management and treatment plan. Repeat EEG pending. telephone call to cousin Sayda and email to arrange a time to talk with her about medication reactions as pt does not recall; increase vraylar to 3mg daily 10/27 continue plan; waiting to hear back from Sayda re medication reaction but have the list of meds with which she had poor reactions. consider increase vraylar if needed and consider scheduled clonazepam; Sayda (cousin) reports pt has a referral to [facility] neurology already for after care but no appt yet. 10/28 Patient tearful, hard to express herself through emotions; saying that she is scared she will never get better, trying to push herself to go to groups... She is following staff's recommendations at behavioral activation however it is also causing her some stress as she can not tell how long she supposed to be out of her room, engaged with others feeling very unable to decide how much time she should be allowed to stay in her room by herself.... Client Account Assistant tried to talk this through with her but patient had a hard time discussing therapeutic approaches to to her emotionality. That said, patient feels somewhat improved since she 1st came in and said that she is feeling so-so in addition to being scared and anxious. She does say however that she is suffering which is apparent. -Patient said that the last time she was hospitalized was in 2019 and when discharged, was overall feeling that she was doing pretty well. Discussed medication regimen and patient is not sure why medications were changed over these years but she agrees to get back on past regimen; also discussed ECT but patient can not remember if she thought this was helpful or not. Patient gave permission to talk to her provider, her cousin who is also her healthcare proxy. Per staff, covering provider, pt improved a little since admission: She is less tearful and no begging, getting on her knees with hands clapsed as she did on first day; -pt tolerating the vraylar which was increased to 3mg yesterday. pt remains tortured by worries, depression, indecisiveness...though a little less intensely so then on admission. Pt says it's very hard for her to do anything and she just wants to go lie in bed; however, she agrees to force herself to groups. Apologetically Rejects some activities recommended saying she's too anxious to attend. -cousin/HCP Sayda: gave hx -Says Haldol has historically worked the best; agrees with re-trial of Lamicta; continue w/ Vraylar -She voiced [facility] MRI concerns; song writer able to read impression which does refer to lesion Right Frontal lobe (not in meditech) 10/29 pt agrees she's doing a little better...says a little less anxious-maybe due to Vraylar; affect is more calm; agrees to continue -continues to feel depressed and struggles with both ocd-obsessional worries and indecisiveness (can't tolerate picking out menu, cloths...what to do w/ time). Agrees to restart Lamictal to help w/ OCD 10/31/23 CTP (started on vraylar and lamotrigine) 11/01/23 added gabapentin to see if more immediate effect- watch for sedation cortes combined with clonazepam- 11/01 still very anxious, paralyzed by indecision, depressed; increasing Vrayar 11/02 pt remains paralyzed by her worries, fearful, tearful; expresses frustration/shame at struggles making choices overwhelmed at thought of choosing cloths, food off the menu. discussed med management and pt agrees to try Trileptal to see if it can help w/ anxiety given that Lamictal takes a while to reach therapeutic dose. -medication alone will not be enough to stabilize patient: -Team/OT discussed and created extensive behavioral/therapeutic CBT based plan which includes gradually increased tasks including picking foods off simplified menu, slowly adding choice of cloths... 11/03: continue current tx plan. 11/04 remains very anixous, paralyzed by OCD symptoms rendering unable to make decisions w/out extreme stress and anxiety; seems that Thorazine prn has lowered a little anxiety so will add to regimen. Pt now on 3 antipsychotics; she is miserable, suffering and tying to find regimen that works; will aim to eliminate one antipsychotic but for time being trying to get pt relief from overwhelming anxiety. Increasing Trileptal to 300mg BID. Not sure that Vraylar is helping but will keep for now. 11/05 Patient remains severely disabled by anxiety, walking up and down the [place]lejas in tears, talking about how she is afraid. Patient benefited from Thorazine 75 mg which did reduce her anxiety considerably though only temporarily. -Discussed case with Dr. Bryant who treated patient in the past though her symptoms were similarly very difficult to treat, he thought she improved on combination of clozapine, Haldol, Depakote and propranolol. Also agreed with titrating Trileptal for anxiety and which is used in some cases for carrol. Clozaril and Depakote or currently on hold, given some side effects and inconvenience; propranolol as an option. -Vraylar has not seemed to help so will likely DC now that Thorazine has proven somewhat helpful; increasing Trileptal; considering scheduling Thorazine 11/06 Ever so slightly better. Patient remains very anxious and with much difficulty getting dressed her making any decisions. However her affect is a little less anxious and her cousin who visited today agrees. Discussed medication regimen at length and agreed to continue on current treatment plan. Patient had what looked like a dystonic reaction however she kept saying it was just that her tongue was dry. Gave patient Benadryl 50 mg which to song writer, seemed to make it better however patient did not think so. She is on Cogentin 1 mg b.i.d. which ostensibly should prevent dystonia however it is still unclear to song writer what occurred today. Cousin said that this happens from time to time and she has understood it to be dry mouth secondary to medication. Client Account Assistant educated both on the side effect of dystonia for which they will monitor. -will add Benadryl 50 mg as a p.r.n. in case of dystonic reaction 11/07 same presentation; no tongue/mouth issues 11/08 Patient remains with considerable struggles completing tasks, dealing with a close due to excessive worrying. Discussed medication regimen and now that patient seems to have stabilized some discussing whether to start TCA for OCD. Patient has decompensated with SSRIs and there remain some risk with TCAs as well, however OCD symptoms are crippling and patient is desperate for relief. -consulting with Dr. Bryant; will reach out to outpatient provider to get additional history on medication trials 11/09 Patient doing a little better and actually smiling and laughing some while talking with song writer. Still gets very anxious when talking about dealing with her clothes/laundry but can pull herself out of it a little faster than before. Patient said she is pretty anxious about returning to her sister/cousin's house. She loves her cousin but can get very frustrated there; patient becomes tearful thinking about it. Discussed medication and ambivalence about whether to add clomipramine. Patient is doing a little better but still remains quite paralyzed by her excessive OCD type worries. Patient agrees to trial to see how it goes 11/10 more tearful and anxious than yesterday 11/11 pt crying so much, unable to have much of a discussion; beside herself regarding cloths (for which pt receives much help from staff). Discussed meds and she agrees to increase Lamictal. -will DC Clomipramine; some concern that patients increased tearfulness over past 2 days as team agrees she has decompenstated a little bit since started. Of course this may not be the cause, but since she was progressing some before clomipramine was started will dc -further discussed treatment plan with OT and it is agreed that having patient deal with her laundry is simply too triggering for her right now; will remove this from her behavioral plan to see if she can further stabilize. 11/15/2023: Continue current regimen and plans 11/15 Lamictal increased to b.i.d.; taking away chore of doing laundry; will discuss with cousin when she thinks patient is able come home 11/16 continue current treatment plan; will try to get a hold of outpatient provider to discuss changes Plan CV Q 15 -DISCONTINUEd Clomipramine 25mg qhs; starting this med on 11/09 correlated with decompensation; could be a simple coincidence however not worth the risk at this time -continue Lamictal 25mg b.i.d. -continue Benadryl 50 mg p.r.n. for dystonia -Continue Thorazine 50mg TID PRN for anxiety/agitation (will dc haldol prn and hydroxyzine prn since not helping) -Continue Thorazine 50mg TiD -continue haldol dec 100mg IM received November 10 -continue gabapentin to 300mg TId to see if can help with anxiety (started for foot pain, however, pain is new, from walking halls) -Continue Trileptal 300mg t.i.d. for anxiety; will titrate; not sure if will be helpful, but few options left to address anxiety as Vraylar/lamictal become theapeutic -working with OT for help with CBT -DC Vraylar 4.5mg has not seem to help -look further into MRI impression -DC'd Prozac concern for bipolar disorder, dry mouth -Neurology/EEG: Previously she has reported some symptoms suggestive of complex partial seizures and had mildly abnormal EEG. At this time her presentation was different but I would suggest obtaining an EEG again. In addition, if a mood stabilizer is needed, I would recommend using lamotrigine, topiramate, or valproic acid. -Neurology consult 10/24 Dr. Ma, 47 years old woman admitted in hospital with severe depression and self-harm type of behavior. Couple of years ago she was admitted in hospital and reported episodes of her patel type of feeling going to her head lasting for seconds to minutes. At that time an EEG revealed left temporal sharp waves. CT scan and MRI of brain were okay. -however, [facility] MRI concerns; song writer able to read impression from [facility] 09/17/23 which does refer to lesion Right Frontal lobe (not in meditech); will discuss with neuro Med trials: Haldol: worked the best ! Lamictal: did not seem to help, but...may have been too low a dose Fluvoxamine? not sure if helpful ECT: no help; memory loss Vraylar 4.5mg has not seemed to help Clozapine: did not tolerate frequent blood draws abilify: severe restlessness Risperdal: severe restlessness [place]: bed-wetting; not sure if helped Depakote: muscle cramps, restless... Latuda: TD Seroquel 50 mg Q 4 p.r.n. (makes aggressive) Nuedexta (Dextromethorphan /Quinidine) for uncontrollable crying/laughing Oxybutynin 10 mg Propranolol 20 mg t.i.d. hx: -Psych admission 2019 [place] -Residential for 1 year 2019- did ok, ups/downs; lots of med changes -Home with Cousin 2020-current: past 2.5 years overall good enough, lots of up/downs and med changes BETH and some trouble breathing? Seratonin Syndrom on some meds for depression? (not sure details) -Thinks recent decomp result of adding Paxil which caused high irritability/manic/obsessive and then Prozac which caused the same; since then, outpt provider trying to do a reset on meds... Says when at home w/ Cousin, ups/downs but was able to overall function at home with sufficient good enough periods where she'd go out and do activities (with help), put on makeup, enjoy things...Sayda reports constant medication changes making it difficult to know what meds worked or at least were partially helpful...wonders that during down times, it would be better to just wait it out rather than make med changes. Thinks recent decomp result of adding Paxil which caused high irritability/manic/obsessive and then Prozac which caused the same; since then, outpt provider trying to do a reset on meds.. Patient educated on: diagnosis, medication risk/benefits and therapeutic strategies Informed Consent: understands Reason for continued inpatient stay Substantial Risk for: stable for discharge and rapid decompensation Time Spent With Patient Time: Total time managing care of this patient today ____ minutes.
[2023-11-17 19:50] VITALS: BP 128/68; PULSE 76; RESP 18; TEMP 36.7; O2SAT 98
[2023-11-17] MEDS: traZODone HCL 50 MG TABLET PO (20:51)
[2023-11-18 07:30] VITALS: BP 125/74; PULSE 96; RESP 15; TEMP 36.5; O2SAT 100
[2023-11-18] MEDS: Benztropine Mesylate 1 MG TABLET PO ×2 (08:44→21:20)
[2023-11-18] MEDS: Omeprazole 20 MG CAPSULE.DR PO (08:44)
[2023-11-18] MEDS: lamoTRIgine 25 MG TABLET PO ×2 (08:44→21:20)
[2023-11-18] MEDS: OXcarbazepine 300 MG TABLET PO ×3 (08:44→21:19)
[2023-11-18] MEDS: chlorproMAZINE HCl 25 MG TABLET 50 MG PO ×3 (08:44→21:19)
[2023-11-18] MEDS: Levothyroxine Sodium 75 MCG TABLET PO (08:44)
[2023-11-18] MEDS: Cholecalciferol (Vitamin D3) 25 MCG TABLET PO (08:44)
[2023-11-18] MEDS: Gabapentin 300 MG CAPSULE PO ×3 (08:44→21:20)
--- NOTE | 2023-11-18 17:55 | P.PNPSI_ITS ---
Subjective Subjective Date of Service: 11/18/23 Reason For Visit: Bipolar Disorder Interim History: Met with patient; discussed with team Mostly same presentation; patient complaining of dry mouth and lips; reviewed medication and not sure which could be causing and thus agreed to leave things as they were. Discussed disposition and patient said she thinks she is ready to go home. She is scared about it but feels that she will be able to handle that fear. Mental Status Exam Mental Status Exam Narrative: Pt is alert and oriented; behavior anxious and intermittently tearful; cooperative; dressed in casual attire with good hygiene; mood is described as frustrated and affect congruent, tearful; eye contact appropriate; Speech is normal rate, volume and prosody and not pressured; both psychomotor agitation intermittently present; thought process is organized and goal directed; Thought content is on OCD struggles, fearfulness, anxiety, tx; otherwise pertinent to relevant topics and without any delusional content, paranoid ideations or grandiosity; denies any SI/HI. There is no evidence of perceptual disturbance. Patients insight and judgment impaired but improved, close to baseline and adequate Diagnostics Vital Signs (24Hr): Vital Signs - 24 hr 11/17/23 19:50 11/18/23 07:30 Temperature 98.1 F 97.7 F Pulse Rate 76 96 Respiratory Rate 18 15 Blood Pressure 128/68 125/74 Pulse Oximetry 98 100 Oxygen Delivery Method Room Air Room Air BMI result Body Mass Index 33.9 Labs 10/20/23 20:19 10/20/23 20:19 Medications Medications Current Medications Acetaminophen (Acetaminophen 325 Mg Tablet) 650 mg PO Q6H PRN PRN Reason: Headache/Pain Scale (1-10) Al Hydroxide/Mg Hydroxide (Magnesium Hydrox/Alum Hydrox 30 Ml Oral.Susp) 30 ml PO Q6H PRN PRN Reason: Heartburn/Nausea Last Admin: 10/27/23 13:38 Dose: 30 ml Benztropine Mesylate (Benztropine Mesylate 1 Mg Tablet) 1 mg PO BID [facility] Last Admin: 11/18/23 08:44 Dose: 1 mg Chlorpromazine HCl (Chlorpromazine Hcl 25 Mg Tablet) 50 mg PO TID [facility] Last Admin: 11/18/23 14:12 Dose: 50 mg Chlorpromazine HCl (Chlorpromazine Hcl 25 Mg Tablet) 50 mg PO QID PRN PRN Reason: anxiety/agitation Last Admin: 11/16/23 18:22 Dose: 50 mg Clonazepam (Clonazepam 1 Mg Tablet) 1 mg PO TID PRN PRN Reason: panic attack Last Admin: 11/16/23 18:22 Dose: 1 mg Diphenhydramine HCl (Diphenhydramine Hcl 25 Mg Capsule) 50 mg PO Q6H PRN PRN Reason: DYStonia Last Admin: 11/07/23 19:30 Dose: 50 mg Gabapentin (Gabapentin 300 Mg Capsule) 300 mg PO TID [facility] Last Admin: 11/18/23 14:12 Dose: 300 mg Haloperidol Decanoate (Haloperidol Decanoate 50 Mg/Ml Vial) 100 mg IM Q28D [facility] Last Admin: 11/11/23 10:26 Dose: 100 mg Lamotrigine (Lamotrigine 25 Mg Tablet) 25 mg PO BID [facility] Last Admin: 11/18/23 08:44 Dose: 25 mg Levothyroxine Sodium (Levothyroxine Sodium 75 Mcg Tablet) 75 mcg PO DAILY@629 [facility] Last Admin: 11/18/23 08:44 Dose: 75 mcg Magnesium Hydroxide (Milk Of Magnesia 30 Ml Oral.Susp) 30 ml PO DAILY PRN PRN Reason: Constipation Last Admin: 11/03/23 05:11 Dose: 30 ml Omeprazole (Omeprazole 20 Mg Capsule.Dr) 20 mg PO DAILY@629 [facility] Last Admin: 11/18/23 08:44 Dose: 20 mg Oxcarbazepine (Oxcarbazepine 300 Mg Tablet) 300 mg PO TID [facility] Last Admin: 11/18/23 14:12 Dose: 300 mg Saliva Substitute (Dry Mouth Aurora 60 Ml Aurora) 1 spray MUCOUS MEM Q2H PRN PRN Reason: dry mouth Last Admin: 11/13/23 20:58 Dose: 1 spray Trazodone HCl (Trazodone Hcl 50 Mg Tablet) 50 mg PO BEDTIME MRX1 PRN PRN Reason: Insomnia Last Admin: 11/17/23 20:51 Dose: 50 mg Vitamin D (Cholecalciferol (Vitamin D3) 25 Mcg Tablet) 25 mcg PO DAILY [facility] Last Admin: 11/18/23 08:44 Dose: 25 mcg Allergies Allergies Allergy/AdvReac Type Severity Reaction Status Date / Time aripiprazole Allergy Mild Unknown Verified 10/07/23 07:50 bupropion AdvReac Unknown Verified 10/07/23 07:50 divalproex sodium AdvReac Unknown Verified 10/07/23 07:50 [From Depakote] risperidone AdvReac Unknown Verified 10/07/23 07:50 Assessment & Plan Assessment & Plan (1) Bipolar 1 disorder, mixed: Status: Acute Code(s): F31.60 - Bipolar disorder, current episode mixed, unspecified Assessment and Plan: 11/01/23 discussed trying gabapentin, tried to review prior hx of this but seems like hx is archived or I couldn't figure out how to access it- (2) OCD (obsessive compulsive disorder): Qualifiers: Obsessive-compulsive disorder type: mixed obsessional thoughts and acts Qualified Code(s): F42.2 - Mixed obsessional thoughts and acts Status: Acute Code(s): F42.9 - Obsessive-compulsive disorder, unspecified (3) Abnormal EEG: Status: Acute Code(s): R94.01 - Abnormal electroencephalogram [EEG] Assessment and Plan: 47 years old woman who was admitted in hospital with severe depression. Previously she has reported some symptoms suggestive of complex partial seizures and had mildly abnormal EEG. At this time her presentation was different but I would suggest obtaining an EEG again. In addition, if a mood stabilizer is needed, I would recommend using lamotrigine, topiramate, or valproic acid. (4) History of electroconvulsive therapy: Status: Acute Code(s): Z98.890 - Other specified postprocedural states Assessment and Plan: Pt reports this didn't help her last time she tried Plan 47 yo woman with chronic Bipolar Disorder and OCD with severe anxiety and restlessness, intrusive behavior, ruminating and pacing in need of hospital treatment admitted on CV to [facility]. Impression/decision making: History of difficult to treat bipolar depression, OCD. Haldol has been helpful and pt will continue on it, but many other failed med trials including antipsychotics, mood stabilizers and SSRI's; ECT in past not helpful (maybe because hard to get good seizure since on benzos/depakote?). Pt started on Vraylar for bipolar depression and Lamictal for OCD (and depression/anxiety). Hospital course: 10/24: Neurology saw patient recommended repeat EEG. ?ECT. Clarify Depakote allergy. 2/26: Continue current management and treatment plan. Repeat EEG pending. telephone call to cousin Sayda and email to arrange a time to talk with her about medication reactions as pt does not recall; increase vraylar to 3mg daily 10/27 continue plan; waiting to hear back from Sayda re medication reaction but have the list of meds with which she had poor reactions. consider increase vraylar if needed and consider scheduled clonazepam; Sayda (cousin) reports pt has a referral to [facility] neurology already for after care but no appt yet. 10/28 Patient tearful, hard to express herself through emotions; saying that she is scared she will never get better, trying to push herself to go to groups... She is following staff's recommendations at behavioral activation however it is also causing her some stress as she can not tell how long she supposed to be out of her room, engaged with others feeling very unable to decide how much time she should be allowed to stay in her room by herself.... Weatherization And Housing Inspector tried to talk this through with her but patient had a hard time discussing therapeutic approaches to to her emotionality. That said, patient feels somewhat improved since she 1st came in and said that she is feeling so-so in addition to being scared and anxious. She does say however that she is suffering which is apparent. -Patient said that the last time she was hospitalized was in 2019 and when discharged, was overall feeling that she was doing pretty well. Discussed medication regimen and patient is not sure why medications were changed over these years but she agrees to get back on past regimen; also discussed ECT but patient can not remember if she thought this was helpful or not. Patient gave permission to talk to her provider, her cousin who is also her healthcare proxy. Per staff, covering provider, pt improved a little since admission: She is less tearful and no begging, getting on her knees with hands clapsed as she did on first day; -pt tolerating the vraylar which was increased to 3mg yesterday. pt remains tortured by worries, depression, indecisiveness...though a little less intensely so then on admission. Pt says it's very hard for her to do anything and she just wants to go lie in bed; however, she agrees to force herself to groups. Apologetically Rejects some activities recommended saying she's too anxious to attend. -cousin/HCP Sayda: gave hx -Says Haldol has historically worked the best; agrees with re-trial of Lamicta; continue w/ Vraylar -She voiced [facility] MRI concerns; principal technical writer able to read impression which does refer to lesion Right Frontal lobe (not in [facility]) 10/29 pt agrees she's doing a little better...says a little less anxious-maybe due to Vraylar; affect is more calm; agrees to continue -continues to feel depressed and struggles with both ocd-obsessional worries and indecisiveness (can't tolerate picking out menu, cloths...what to do w/ time). Agrees to restart Lamictal to help w/ OCD 10/31/23 CTP (started on vraylar and lamotrigine) 11/01/23 added gabapentin to see if more immediate effect- watch for sedation cortes combined with clonazepam- 11/01 still very anxious, paralyzed by indecision, depressed; increasing Vrayar 11/02 pt remains paralyzed by her worries, fearful, tearful; expresses frustration/shame at struggles making choices overwhelmed at thought of choosing cloths, food off the menu. discussed med management and pt agrees to try Trileptal to see if it can help w/ anxiety given that Lamictal takes a while to reach therapeutic dose. -medication alone will not be enough to stabilize patient: -Team/OT discussed and created extensive behavioral/therapeutic CBT based plan which includes gradually increased tasks including picking foods off simplified menu, slowly adding choice of cloths... 11/03: continue current tx plan. 11/04 remains very anixous, paralyzed by OCD symptoms rendering unable to make decisions w/out extreme stress and anxiety; seems that Thorazine prn has lowered a little anxiety so will add to regimen. Pt now on 3 antipsychotics; she is miserable, suffering and tying to find regimen that works; will aim to eliminate one antipsychotic but for time being trying to get pt relief from overwhelming anxiety. Increasing Trileptal to 300mg BID. Not sure that Vraylar is helping but will keep for now. 11/05 Patient remains severely disabled by anxiety, walking up and down the [place]le[place] in tears, talking about how she is afraid. Patient benefited from Thorazine 75 mg which did reduce her anxiety considerably though only temporarily. -Discussed case with Dr. Bryant who treated patient in the past though her symptoms were similarly very difficult to treat, he thought she improved on combination of clozapine, Haldol, Depakote and propranolol. Also agreed with titrating Trileptal for anxiety and which is used in some cases for carrol. Clozaril and Depakote or currently on hold, given some side effects and inconvenience; propranolol as an option. -Vraylar has not seemed to help so will likely DC now that Thorazine has proven somewhat helpful; increasing Trileptal; considering scheduling Thorazine 11/06 Ever so slightly better. Patient remains very anxious and with much difficulty getting dressed her making any decisions. However her affect is a little less anxious and her cousin who visited today agrees. Discussed medication regimen at length and agreed to continue on current treatment plan. Patient had what looked like a dystonic reaction however she kept saying it was just that her tongue was dry. Gave patient Benadryl 50 mg which to principal technical writer, seemed to make it better however patient did not think so. She is on Cogentin 1 mg b.i.d. which ostensibly should prevent dystonia however it is still unclear to principal technical writer what occurred today. Cousin said that this happens from time to time and she has understood it to be dry mouth secondary to medication. Weatherization And Housing Inspector educated both on the side effect of dystonia for which they will monitor. -will add Benadryl 50 mg as a p.r.n. in case of dystonic reaction 11/07 same presentation; no tongue/mouth issues 11/08 Patient remains with considerable struggles completing tasks, dealing with a close due to excessive worrying. Discussed medication regimen and now that patient seems to have stabilized some discussing whether to start TCA for OCD. Patient has decompensated with SSRIs and there remain some risk with TCAs as well, however OCD symptoms are crippling and patient is desperate for relief. -consulting with Dr. Bryant; will reach out to outpatient provider to get additional history on medication trials 11/09 Patient doing a little better and actually smiling and laughing some while talking with principal technical writer. Still gets very anxious when talking about dealing with her clothes/laundry but can pull herself out of it a little faster than before. Patient said she is pretty anxious about returning to her sister/cousin's house. She loves her cousin but can get very frustrated there; patient becomes tearful thinking about it. Discussed medication and ambivalence about whether to add clomipramine. Patient is doing a little better but still remains quite paralyzed by her excessive OCD type worries. Patient agrees to trial to see how it goes 11/10 more tearful and anxious than yesterday 11/11 pt crying so much, unable to have much of a discussion; beside herself regarding cloths (for which pt receives much help from staff). Discussed meds and she agrees to increase Lamictal. -will DC Clomipramine; some concern that patients increased tearfulness over past 2 days as team agrees she has decompenstated a little bit since started. Of course this may not be the cause, but since she was progressing some before clomipramine was started will dc -further discussed treatment plan with OT and it is agreed that having patient deal with her laundry is simply too triggering for her right now; will remove this from her behavioral plan to see if she can further stabilize. 11/15/2023: Continue current regimen and plans 11/15 Lamictal increased to b.i.d.; taking away chore of doing laundry; will discuss with cousin when she thinks patient is able come home 11/16 continue current treatment plan; will try to get a hold of outpatient provider to discuss changes 11/17 continue current treatment; attempted but unable to get a hold of outpatient provider Plan CV Q 15 -DISCONTINUEd Clomipramine 25mg qhs; starting this med on 11/09 correlated with decompensation; could be a simple coincidence however not worth the risk at this time -continue Lamictal 25mg b.i.d. -continue Benadryl 50 mg p.r.n. for dystonia -Continue Thorazine 50mg TID PRN for anxiety/agitation (will dc haldol prn and hydroxyzine prn since not helping) -Continue Thorazine 50mg TiD -continue haldol dec 100mg IM received November 10 -continue gabapentin to 300mg TId to see if can help with anxiety (started for foot pain, however, pain is new, from walking halls) -Continue Trileptal 300mg t.i.d. for anxiety; will titrate; not sure if will be helpful, but few options left to address anxiety as Vraylar/lamictal become theapeutic -working with OT for help with CBT -DC Vraylar 4.5mg has not seem to help -regarding MRI, patient's cousin says they will discuss with patients own outpatient neurologist -DC'd Prozac concern for bipolar disorder, dry mouth -Neurology/EEG: -patient's cousin says they will discuss with patients own outpatient neurologist Previously she has reported some symptoms suggestive of complex partial seizures and had mildly abnormal EEG. At this time her presentation was different but I would suggest obtaining an EEG again. In addition, if a mood stabilizer is needed, I would recommend using lamotrigine, topiramate, or valproic acid. -Neurology consult 10/24 Dr. Ma, 47 years old woman admitted in hospital with severe depression and self-harm type of behavior. Couple of years ago she was admitted in hospital and reported episodes of her patel type of feeling going to her head lasting for seconds to minutes. At that time an EEG revealed left temporal sharp waves. CT scan and MRI of brain were okay. -however, [facility] MRI concerns; principal technical writer able to read impression from [facility] 09/17/23 which does refer to lesion Right Frontal lobe (not in [facility]); will discuss with neuro Med trials: Haldol: worked the best ! Lamictal: did not seem to help, but...may have been too low a dose Fluvoxamine? not sure if helpful ECT: no help; memory loss Vraylar 4.5mg has not seemed to help Clozapine: did not tolerate frequent blood draws abilify: severe restlessness Risperdal: severe restlessness [place]: bed-wetting; not sure if helped Depakote: muscle cramps, restless... Latuda: TD Seroquel 50 mg Q 4 p.r.n. (makes aggressive) Nuedexta (Dextromethorphan /Quinidine) for uncontrollable crying/laughing Oxybutynin 10 mg Propranolol 20 mg t.i.d. hx: -Psych admission 2019 [facility] -Residential for 1 year 2020-21 did ok, ups/downs; lots of med changes -Home with Cousin 2020-current: past 2.5 years overall good enough, lots of up/downs and med changes BETH and some trouble breathing? Seratonin Syndrom on some meds for depression? (not sure details) -Thinks recent decomp result of adding Paxil which caused high irritability/manic/obsessive and then Prozac which caused the same; since then, outpt provider trying to do a reset on meds... Says when at home w/ Cousin, ups/downs but was able to overall function at home with sufficient good enough periods where she'd go out and do activities (with help), put on makeup, enjoy things...Sayda reports constant medication changes making it difficult to know what meds worked or at least were partially helpful...wonders that during down times, it would be better to just wait it out rather than make med changes. Thinks recent decomp result of adding Paxil which caused high irritability/manic/obsessive and then Prozac which caused the same; since then, outpt provider trying to do a reset on meds.. Patient educated on: diagnosis, medication risk/benefits and therapeutic strategies Informed Consent: understands Reason for continued inpatient stay Substantial Risk for: stable for discharge Time Spent With Patient Time: Total time managing care of this patient today ____ minutes.
[2023-11-18 18:40] VITALS: BP 122/73; PULSE 93; RESP 16; TEMP 36.1; O2SAT 100
[2023-11-19] MEDS: Omeprazole 20 MG CAPSULE.DR PO (05:14)
[2023-11-19] MEDS: Levothyroxine Sodium 75 MCG TABLET PO (05:14)
[2023-11-19 07:00] VITALS: BMI 33.7
[2023-11-19 08:00] VITALS: BP 100/67; PULSE 94; RESP 18; TEMP 36; O2SAT 99
[2023-11-19] MEDS: Benztropine Mesylate 1 MG TABLET PO ×2 (08:00→20:01)
[2023-11-19] MEDS: Cholecalciferol (Vitamin D3) 25 MCG TABLET PO (08:00)
[2023-11-19] MEDS: lamoTRIgine 25 MG TABLET PO ×2 (08:00→20:02)
[2023-11-19] MEDS: chlorproMAZINE HCl 25 MG TABLET 50 MG PO ×4 (08:00→20:01)
[2023-11-19] MEDS: Gabapentin 300 MG CAPSULE PO ×3 (08:00→20:01)
[2023-11-19] MEDS: OXcarbazepine 300 MG TABLET PO ×3 (08:00→20:01)
--- NOTE | 2023-11-19 09:56 | P.PNPSI_ITS ---
Subjective Subjective Date of Service: 11/19/23 Reason For Visit: Bipolar Disorder Interim History: Met with patient; discussed with team Same presentation. Patient feels ready to go home; accepts that further reduction of symptoms will take continue titration of Lamictal. Also discussed day program with patient who agreed that having activities during the day will be good for both her and her cousin. Discussed with patient's cousin/healthcare proxy with whom she lives and who recently saw patient on the unit a few days ago. She feels that patient has improved and is close enough to baseline, ready to come home. Discussed aftercare plans and cousin was encouraged to know that referral is out to day program for patient. Mental Status Exam Mental Status Exam Narrative: Pt is alert and oriented; behavior anxious and intermittently tearful; cooperative; dressed in casual attire with good hygiene; mood is described as frustrated and affect congruent, tearful; eye contact appropriate; Speech is normal rate, volume and prosody and not pressured; both psychomotor agitation intermittently present; thought process is organized and goal directed; Thought content is on OCD struggles, fearfulness, anxiety, tx; otherwise pertinent to relevant topics and without any delusional content, paranoid ideations or grandiosity; denies any SI/HI. There is no evidence of perceptual disturbance. Patients insight and judgment impaired but improved, close to baseline and adequate Diagnostics Vital Signs (24Hr): Vital Signs - 24 hr 11/18/23 18:40 11/19/23 08:00 Temperature 97.0 F 96.8 F Pulse Rate 93 94 Respiratory Rate 16 18 Blood Pressure 122/73 100/67 Pulse Oximetry 100 99 Oxygen Delivery Method Room Air Room Air BMI result Body Mass Index 33.7 Labs 10/20/23 20:19 10/20/23 20:19 Medications Medications Current Medications Acetaminophen (Acetaminophen 325 Mg Tablet) 650 mg PO Q6H PRN PRN Reason: Headache/Pain Scale (1-10) Al Hydroxide/Mg Hydroxide (Magnesium Hydrox/Alum Hydrox 30 Ml Oral.Susp) 30 ml PO Q6H PRN PRN Reason: Heartburn/Nausea Last Admin: 10/27/23 13:38 Dose: 30 ml Benztropine Mesylate (Benztropine Mesylate 1 Mg Tablet) 1 mg PO BID [place] Last Admin: 11/19/23 08:00 Dose: 1 mg Chlorpromazine HCl (Chlorpromazine Hcl 25 Mg Tablet) 50 mg PO TID [facility] Last Admin: 11/19/23 08:00 Dose: 50 mg Chlorpromazine HCl (Chlorpromazine Hcl 25 Mg Tablet) 50 mg PO QID PRN PRN Reason: anxiety/agitation Last Admin: 11/16/23 18:22 Dose: 50 mg Clonazepam (Clonazepam 1 Mg Tablet) 1 mg PO TID PRN PRN Reason: panic attack Last Admin: 11/16/23 18:22 Dose: 1 mg Diphenhydramine HCl (Diphenhydramine Hcl 25 Mg Capsule) 50 mg PO Q6H PRN PRN Reason: DY[place] Last Admin: 11/07/23 19:30 Dose: 50 mg Gabapentin (Gabapentin 300 Mg Capsule) 300 mg PO TID [facility] Last Admin: 11/19/23 08:00 Dose: 300 mg Haloperidol Decanoate (Haloperidol Decanoate 50 Mg/Ml Vial) 100 mg IM Q28D [facility] Last Admin: 11/11/23 10:26 Dose: 100 mg Lamotrigine (Lamotrigine 25 Mg Tablet) 25 mg PO BID [facility] Last Admin: 11/19/23 08:00 Dose: 25 mg Levothyroxine Sodium (Levothyroxine Sodium 75 Mcg Tablet) 75 mcg PO DAILY@30 [facility] Last Admin: 11/19/23 05:14 Dose: 75 mcg Magnesium Hydroxide (Milk Of Magnesia 30 Ml Oral.Susp) 30 ml PO DAILY PRN PRN Reason: Constipation Last Admin: 11/03/23 05:11 Dose: 30 ml Omeprazole (Omeprazole 20 Mg Capsule.Dr) 20 mg PO DAILY@30 [facility] Last Admin: 11/19/23 05:14 Dose: 20 mg Oxcarbazepine (Oxcarbazepine 300 Mg Tablet) 300 mg PO TID [facility] Last Admin: 11/19/23 08:00 Dose: 300 mg Saliva Substitute (Dry Mouth [place] 60 Ml [place]) 1 spray MUCOUS MEM Q2H PRN PRN Reason: dry mouth Last Admin: 11/13/23 20:58 Dose: 1 spray Trazodone HCl (Trazodone Hcl 50 Mg Tablet) 50 mg PO BEDTIME MRX1 PRN PRN Reason: Insomnia Last Admin: 11/17/23 20:51 Dose: 50 mg Vitamin D (Cholecalciferol (Vitamin D3) 25 Mcg Tablet) 25 mcg PO DAILY [place] Last Admin: 11/19/23 08:00 Dose: 25 mcg Allergies Allergies Allergy/AdvReac Type Severity Reaction Status Date / Time aripiprazole Allergy Mild Unknown Verified 10/07/23 07:50 bupropion AdvReac Unknown Verified 10/07/23 07:50 divalproex sodium AdvReac Unknown Verified 10/07/23 07:50 [From Depakote] risperidone AdvReac Unknown Verified 10/07/23 07:50 Assessment & Plan Assessment & Plan (1) Bipolar 1 disorder, mixed: Status: Acute Code(s): F31.60 - Bipolar disorder, current episode mixed, unspecified Assessment and Plan: 11/01/23 discussed trying gabapentin, tried to review prior hx of this but seems like hx is archived or I couldn't figure out how to access it- (2) OCD (obsessive compulsive disorder): Qualifiers: Obsessive-compulsive disorder type: mixed obsessional thoughts and acts Qualified Code(s): F42.2 - Mixed obsessional thoughts and acts Status: Acute Code(s): F42.9 - Obsessive-compulsive disorder, unspecified (3) Abnormal EEG: Status: Acute Code(s): R94.01 - Abnormal electroencephalogram [EEG] Assessment and Plan: 47 years old woman who was admitted in hospital with severe depression. Previously she has reported some symptoms suggestive of complex partial seizures and had mildly abnormal EEG. At this time her presentation was different but I would suggest obtaining an EEG again. In addition, if a mood stabilizer is needed, I would recommend using lamotrigine, topiramate, or valproic acid. (4) History of electroconvulsive therapy: Status: Acute Code(s): Z98.890 - Other specified postprocedural states Assessment and Plan: Pt reports this didn't help her last time she tried Plan 47 yo woman with chronic Bipolar Disorder and OCD with severe anxiety and restlessness, intrusive behavior, ruminating and pacing in need of hospital treatment admitted on CV to [facility]. Impression/decision making: History of difficult to treat bipolar depression, OCD. Haldol has been helpful and pt will continue on it, but many other failed med trials including antipsychotics, mood stabilizers and SSRI's; ECT in past not helpful (maybe because hard to get good seizure since on benzos/depakote?). Pt started on Vraylar for bipolar depression and Lamictal for OCD (and depression/anxiety). Hospital course: 10/24: Neurology saw patient recommended repeat EEG. ?ECT. Clarify Depakote allergy. 10/26: Continue current management and treatment plan. Repeat EEG pending. telephone call to cousin Sayda and email to arrange a time to talk with her about medication reactions as pt does not recall; increase vraylar to 3mg daily 10/27 continue plan; waiting to hear back from Sayda re medication reaction but have the list of meds with which she had poor reactions. consider increase vraylar if needed and consider scheduled clonazepam; Sayda (cousin) reports pt has a referral to [facility] neurology already for after care but no appt yet. 10/28 Patient tearful, hard to express herself through emotions; saying that she is scared she will never get better, trying to push herself to go to groups... She is following staff's recommendations at behavioral activation however it is also causing her some stress as she can not tell how long she supposed to be out of her room, engaged with others feeling very unable to decide how much time she should be allowed to stay in her room by herself.... Lawn Care Specialist tried to talk this through with her but patient had a hard time discussing therapeutic approaches to to her emotionality. That said, patient feels somewhat improved since she 1st came in and said that she is feeling so-so in addition to being scared and anxious. She does say however that she is suffering which is apparent. -Patient said that the last time she was hospitalized was in 2019 and when discharged, was overall feeling that she was doing pretty well. Discussed medication regimen and patient is not sure why medications were changed over these years but she agrees to get back on past regimen; also discussed ECT but patient can not remember if she thought this was helpful or not. Patient gave permission to talk to her provider, her cousin who is also her healthcare proxy. Per staff, covering provider, pt improved a little since admission: She is less tearful and no begging, getting on her knees with hands clapsed as she did on first day; -pt tolerating the vraylar which was increased to 3mg yesterday. pt remains tortured by worries, depression, indecisiveness...though a little less intensely so then on admission. Pt says it's very hard for her to do anything and she just wants to go lie in bed; however, she agrees to force herself to groups. Apologetically Rejects some activities recommended saying she's too anxious to attend. -cousin/HCP Sayda: gave hx -Says Haldol has historically worked the best; agrees with re-trial of Lamicta; continue w/ Vraylar -She voiced [facility] MRI concerns; report writer able to read impression which does refer to lesion Right Frontal lobe (not in [facility]) 10/29 pt agrees she's doing a little better...says a little less anxious-maybe due to Vraylar; affect is more calm; agrees to continue -continues to feel depressed and struggles with both ocd-obsessional worries and indecisiveness (can't tolerate picking out menu, cloths...what to do w/ time). Agrees to restart Lamictal to help w/ OCD 10/31/23 CTP (started on vraylar and lamotrigine) 11/01/23 added gabapentin to see if more immediate effect- watch for sedation cortes combined with clonazepam- 11/01 still very anxious, paralyzed by indecision, depressed; increasing Vrayar 11/02 pt remains paralyzed by her worries, fearful, tearful; expresses frustration/shame at struggles making choices overwhelmed at thought of choosing cloths, food off the menu. discussed med management and pt agrees to try Trileptal to see if it can help w/ anxiety given that Lamictal takes a while to reach therapeutic dose. -medication alone will not be enough to stabilize patient: -Team/OT discussed and created extensive behavioral/therapeutic CBT based plan which includes gradually increased tasks including picking foods off simplified menu, slowly adding choice of cloths... 11/03: continue current tx plan. 11/04 remains very anixous, paralyzed by OCD symptoms rendering unable to make decisions w/out extreme stress and anxiety; seems that Thorazine prn has lowered a little anxiety so will add to regimen. Pt now on 3 antipsychotics; she is miserable, suffering and tying to find regimen that works; will aim to eliminate one antipsychotic but for time being trying to get pt relief from overwhelming anxiety. Increasing Trileptal to 300mg BID. Not sure that Vraylar is helping but will keep for now. 11/05 Patient remains severely disabled by anxiety, walking up and down the [place]lejas in tears, talking about how she is afraid. Patient benefited from Thorazine 75 mg which did reduce her anxiety considerably though only temporarily. -Discussed case with Dr. Bryant who treated patient in the past though her symptoms were similarly very difficult to treat, he thought she improved on combination of clozapine, Haldol, Depakote and propranolol. Also agreed with titrating Trileptal for anxiety and which is used in some cases for carrol. Clozaril and Depakote or currently on hold, given some side effects and inconvenience; propranolol as an option. -Vraylar has not seemed to help so will likely DC now that Thorazine has proven somewhat helpful; increasing Trileptal; considering scheduling Thorazine 11/06 Ever so slightly better. Patient remains very anxious and with much difficulty getting dressed her making any decisions. However her affect is a little less anxious and her cousin who visited today agrees. Discussed medication regimen at length and agreed to continue on current treatment plan. Patient had what looked like a dystonic reaction however she kept saying it was just that her tongue was dry. Gave patient Benadryl 50 mg which to report writer, seemed to make it better however patient did not think so. She is on Cogentin 1 mg b.i.d. which ostensibly should prevent dystonia however it is still unclear to report writer what occurred today. Cousin said that this happens from time to time and she has understood it to be dry mouth secondary to medication. Lawn Care Specialist educated both on the side effect of dystonia for which they will monitor. -will add Benadryl 50 mg as a p.r.n. in case of dystonic reaction 11/07 same presentation; no tongue/mouth issues 11/08 Patient remains with considerable struggles completing tasks, dealing with a close due to excessive worrying. Discussed medication regimen and now that patient seems to have stabilized some discussing whether to start TCA for OCD. Patient has decompensated with SSRIs and there remain some risk with TCAs as well, however OCD symptoms are crippling and patient is desperate for relief. -consulting with Dr. Bryant; will reach out to outpatient provider to get additional history on medication trials 11/09 Patient doing a little better and actually smiling and laughing some while talking with report writer. Still gets very anxious when talking about dealing with her clothes/laundry but can pull herself out of it a little faster than before. Patient said she is pretty anxious about returning to her sister/cousin's house. She loves her cousin but can get very frustrated there; patient becomes tearful thinking about it. Discussed medication and ambivalence about whether to add clomipramine. Patient is doing a little better but still remains quite paralyzed by her excessive OCD type worries. Patient agrees to trial to see how it goes 11/10 more tearful and anxious than yesterday 11/11 pt crying so much, unable to have much of a discussion; beside herself regarding cloths (for which pt receives much help from staff). Discussed meds and she agrees to increase Lamictal. -will DC Clomipramine; some concern that patients increased tearfulness over past 2 days as team agrees she has decompenstated a little bit since started. Of course this may not be the cause, but since she was progressing some before clomipramine was started will dc -further discussed treatment plan with OT and it is agreed that having patient deal with her laundry is simply too triggering for her right now; will remove this from her behavioral plan to see if she can further stabilize. 11/15/2023: Continue current regimen and plans 11/15 Lamictal increased to b.i.d.; taking away chore of doing laundry; will discuss with cousin when she thinks patient is able come home 11/16 continue current treatment plan; will try to get a hold of outpatient provider to discuss changes 11/17 continue current treatment; attempted but unable to get a hold of outpatient provider 11/18 Patient feels ready to go home; accepts that further reduction of symptoms will take continue titration of Lamictal. Also discussed day program with patient who agreed that having activities during the day will be good for both her and her cousin. Discussed with patient's cousin/healthcare proxy with whom she lives and who recently saw patient on the unit a few days ago. She feels that patient has improved and is close enough to baseline, ready to come home. Discussed aftercare plans and cousin was encouraged to know that referral is out to day program for patient. Plan CV Q 15 -DISCONTINUEd Clomipramine 25mg qhs; starting this med on 11/09 correlated with decompensation; could be a simple coincidence however not worth the risk at this time -continue Lamictal 25mg b.i.d. -continue Benadryl 50 mg p.r.n. for dystonia -Continue Thorazine 50mg TID PRN for anxiety/agitation (will dc haldol prn and hydroxyzine prn since not helping) -Continue Thorazine 50mg TiD -continue haldol dec 100mg IM received November 10 -continue gabapentin to 300mg TId to see if can help with anxiety (started for foot pain, however, pain is new, from walking halls) -Continue Trileptal 300mg t.i.d. for anxiety; will titrate; not sure if will be helpful, but few options left to address anxiety as Vraylar/lamictal become theapeutic -working with OT for help with CBT -DC Vraylar 4.5mg has not seem to help -regarding MRI, patient's cousin says they will discuss with patients own outpatient neurologist -DC'd zapolina concern for bipolar disorder, dry mouth -Neurology/EEG: Previously she has reported some symptoms suggestive of complex partial seizures and had mildly abnormal EEG. At this time her presentation was different but I would suggest obtaining an EEG again. In addition, if a mood stabilizer is needed, I would recommend using lamotrigine, topiramate, or valproic acid. -Neurology consult 10/24 Dr. Ma, 47 years old woman admitted in hospital with severe depression and self-harm type of behavior. Couple of years ago she was admitted in hospital and reported episodes of her patel type of feeling going to her head lasting for seconds to minutes. At that time an EEG revealed left temporal sharp waves. CT scan and MRI of brain were okay. -however, [facility] MRI concerns; report writer able to read impression from [facility] 09/17/23 which does refer to lesion Right Frontal lobe (not in [facility]); will discuss with neuro Med trials: Haldol: worked the best ! Lamictal: did not seem to help, but...may have been too low a dose Fluvoxamine? not sure if helpful ECT: no help; memory loss Vraylar 4.5mg has not seemed to help Clozapine: did not tolerate frequent blood draws abilify: severe restlessness Risperdal: severe restlessness [place]: bed-wetting; not sure if helped Depakote: muscle cramps, restless... Latuda: TD Seroquel 50 mg Q 4 p.r.n. (makes aggressive) Nuedexta (Dextromethorphan /Quinidine) for uncontrollable crying/laughing Oxybutynin 10 mg Propranolol 20 mg t.i.d. hx: -Psych admission 2019 [place] -[facility] for 1 year 2019- did ok, ups/downs; lots of med changes -Home with Cousin 2020-current: past 2.5 years overall good enough, lots of up/downs and med changes BETH and some trouble breathing? Seratonin Syndrom on some meds for depression? (not sure details) -Thinks recent decomp result of adding Paxil which caused high irritability/manic/obsessive and then Prozac which caused the same; since then, outpt provider trying to do a reset on meds... Says when at home w/ Cousin, ups/downs but was able to overall function at home with sufficient good enough periods where she'd go out and do activities (with help), put on makeup, enjoy things...Sayda reports constant medication changes making it difficult to know what meds worked or at least were partially helpful...wonders that during down times, it would be better to just wait it out rather than make med changes. Thinks recent decomp result of adding Paxil which caused high irritability/manic/obsessive and then Prozac which caused the same; since then, outpt provider trying to do a reset on meds.. Patient educated on: diagnosis, medication risk/benefits and therapeutic strategies Informed Consent: understands Reason for continued inpatient stay Substantial Risk for: stable for discharge Time Spent With Patient Time: Total time managing care of this patient today ____ minutes.
[2023-11-19] MEDS: clonazePAM 1 MG TABLET PO (17:01)
[2023-11-19] MEDS: Acetaminophen 325 MG TABLET 650 MG PO (17:01)
[2023-11-19 17:45] VITALS: BP 155/102; PULSE 109; RESP 16; TEMP 36.9; O2SAT 100
[2023-11-20] MEDS: Omeprazole 20 MG CAPSULE.DR PO (05:27)
[2023-11-20] MEDS: Levothyroxine Sodium 75 MCG TABLET PO (05:27)
[2023-11-20 08:31] VITALS: BP 111/64; PULSE 105; RESP 18; TEMP 36.6; O2SAT 99
[2023-11-20] MEDS: OXcarbazepine 300 MG TABLET PO ×2 (09:03→14:19)
[2023-11-20] MEDS: chlorproMAZINE HCl 25 MG TABLET 50 MG PO ×2 (09:03→14:19)
[2023-11-20] MEDS: Gabapentin 300 MG CAPSULE PO ×2 (09:04→14:19)
[2023-11-20] MEDS: Cholecalciferol (Vitamin D3) 25 MCG TABLET PO (09:04)
[2023-11-20] MEDS: Benztropine Mesylate 1 MG TABLET PO (09:04)
[2023-11-20] MEDS: lamoTRIgine 25 MG TABLET PO (09:04)
--- NOTE | 2023-11-20 14:10 | PM.PSYDC ---
DS: Providers Provider Date of Service: 11/20/23 Date of admission: 10/21/23 14:58 Date of discharge: 11/20/23 Primary care physician: Kellee Dyer MD Admitting clinician: Jeanette Celaya Consults: 10/23/23 12:51 Consult to Neurology Routine Consulting Provider: [facility] Reason for consultation: MRI Aug 2023 showed lesion frontal lobe, acute pscyh symptoms rayusradiolog Attending physician on discharge: Al Milian DS: Diagnosis Discharge Diagnosis (1) Bipolar 1 disorder, mixed: Status: Acute (2) OCD (obsessive compulsive disorder): Status: Acute (3) Abnormal EEG: Status: Inactive (4) History of electroconvulsive therapy: Status: Inactive DS: Medications Discharge Medications Home Medications: Previous Rx's Medication Instructions Recorded levothyroxine 75 mcg capsule 75 mcg PO DAILY #30 caps 10/04/21 benztropine 1 mg tablet 1 mg PO BID 30 days #60 tabs 11/20/23 chlorpromazine 50 mg tablet See Rx Instructions .Route 11/20/23 .COMPLEX #120 tabs cholecalciferol (vitamin D3) 25 25 mcg PO DAILY 30 days #30 caps 11/20/23 mcg (1,000 unit) capsule (Vitamin D3) clonazepam 1 mg tablet 1 mg PO BID PRN panic attack 30 11/20/23 days #60 tabs gabapentin 300 mg capsule 300 mg PO TID 30 days #90 caps 11/20/23 haloperidol decanoate 100 mg/mL 100 mg IM QMONTH #1 mL 11/20/23 intramuscular solution (Haldol Decanoate) lamotrigine 100 mg tablet 100 mg PO DAILY 30 days #30 tabs 11/20/23 (Lamictal) lamotrigine 25 mg tablet 25 mg PO BID 7 days #14 tabs 11/20/23 omeprazole 20 mg capsule,delayed 20 mg PO DAILY 30 days #30 caps 11/20/23 release oxcarbazepine 300 mg tablet 300 mg PO TID 30 days #90 tabs 11/20/23 trazodone 50 mg tablet 50 mg PO BEDTIME PRN Insomnia 30 11/20/23 days #30 tabs Mental Status Exam Mental Status Exam Narrative: Pt is alert and oriented; behavior anxious and intermittently tearful; cooperative; dressed in casual attire with good hygiene; mood is described as frustrated and affect congruent, tearful; eye contact appropriate; Speech is normal rate, volume and prosody and not pressured; both psychomotor agitation intermittently present; thought process is organized and goal directed; Thought content is on OCD struggles, fearfulness, anxiety, tx; otherwise pertinent to relevant topics and without any delusional content, paranoid ideations or grandiosity; denies any SI/HI. There is no evidence of perceptual disturbance. Patients insight and judgment impaired but improved, close to baseline and adequate Data Data Completed and Pending Completed studies during hospitalization [Text1]: 10/20/23 20:42 Urine clean catch Urine Culture - Final DS: Summary Hospital Course Hospital Course: 47 yo woman with chronic Bipolar Disorder and OCD with severe anxiety and restlessness, intrusive behavior, ruminating and pacing in need of hospital treatment admitted on CV to [facility]. Impression/decision making: History of difficult to treat bipolar depression, OCD. Haldol has been helpful and pt will continue on it, but many other failed med trials including antipsychotics, mood stabilizers and SSRI's; ECT in past not helpful (maybe because hard to get good seizure since on benzos/depakote?). Pt started on Vraylar for bipolar depression and Lamictal for OCD (and depression/anxiety). Hospital course: 10/24: Neurology saw patient recommended repeat EEG. ?ECT. Clarify Depakote allergy. 10/26: Continue current management and treatment plan. Repeat EEG pending. telephone call to coutricia Alfredo and email to arrange a time to talk with her about medication reactions as pt does not recall; increase vraylar to 3mg daily 10/27 continue plan; waiting to hear back from Sayda re medication reaction but have the list of meds with which she had poor reactions. consider increase vraylar if needed and consider scheduled clonazepam; Sayda (cousin) reports pt has a referral to [facility] neurology already for after care but no appt yet. 10/28 Patient tearful, hard to express herself through emotions; saying that she is scared she will never get better, trying to push herself to go to groups... She is following staff's recommendations at behavioral activation however it is also causing her some stress as she can not tell how long she supposed to be out of her room, engaged with others feeling very unable to decide how much time she should be allowed to stay in her room by herself.... Pillar Man tried to talk this through with her but patient had a hard time discussing therapeutic approaches to to her emotionality. That said, patient feels somewhat improved since she 1st came in and said that she is feeling so-so in addition to being scared and anxious. She does say however that she is suffering which is apparent. -Patient said that the last time she was hospitalized was in 2019 and when discharged, was overall feeling that she was doing pretty well. Discussed medication regimen and patient is not sure why medications were changed over these years but she agrees to get back on past regimen; also discussed ECT but patient can not remember if she thought this was helpful or not. Patient gave permission to talk to her provider, her cousin who is also her healthcare proxy. Per staff, covering provider, pt improved a little since admission: She is less tearful and no begging, getting on her knees with hands clapsed as she did on first day; -pt tolerating the vraylar which was increased to 3mg yesterday. pt remains tortured by worries, depression, indecisiveness...though a little less intensely so then on admission. Pt says it's very hard for her to do anything and she just wants to go lie in bed; however, she agrees to force herself to groups. Apologetically Rejects some activities recommended saying she's too anxious to attend. 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 Agrees to restart Lamictal to help w/ OCD 10/31/23 started on vraylar and lamotrigine) 11/01/23 added gabapentin to see if more immediate effect- watch for sedation cortes combined with clonazepam- 11/01 still very anxious, paralyzed by indecision, depressed; increasing Vrayar 11/02 pt remains paralyzed by her worries, fearful, tearful; expresses frustration/shame at struggles making choices overwhelmed at thought of choosing cloths, food off the menu. discussed med management and pt agrees to try Trileptal to see if it can help w/ anxiety given that Lamictal takes a while to reach therapeutic dose. -medication alone will not be enough to stabilize patient: -Team/OT discussed and created extensive behavioral/therapeutic CBT based plan which includes gradually increased tasks including picking foods off simplified menu, slowly adding choice of cloths... 11/04 remains very anixous, paralyzed by OCD symptoms rendering unable to make decisions w/out extreme stress and anxiety; seems that Thorazine prn has lowered a little anxiety so will add to regimen. Pt now on 3 antipsychotics; she is miserable, suffering and tying to find regimen that works; will aim to eliminate one antipsychotic but for time being trying to get pt relief from overwhelming anxiety. Increasing Trileptal to 300mg BID. Not sure that Vraylar is helping but will keep for now. 11/05 Patient remains severely disabled by anxiety, walking up and down the callejas in tears, talking about how she is afraid. Patient benefited from Thorazine 75 mg which did reduce her anxiety considerably though only temporarily. -Discussed case with Dr. Bryant who treated patient in the past though her symptoms were similarly very difficult to treat, he thought she improved on combination of clozapine, Haldol, Depakote and propranolol. Also agreed with titrating Trileptal for anxiety and which is used in some cases for carrol. Clozaril and Depakote or currently on hold, given some side effects and inconvenience; propranolol as an option. -Vraylar has not seemed to help so will likely DC now that Thorazine has proven somewhat helpful; increasing Trileptal; considering scheduling Thorazine 11/06 Ever so slightly better. Patient remains very anxious and with much difficulty getting dressed her making any decisions. However her affect is a little less anxious and her cousin who visited today agrees. Discussed medication regimen at length and agreed to continue on current treatment plan. Patient had what looked like a dystonic reaction however she kept saying it was just that her tongue was dry. Gave patient Benadryl 50 mg which to typewriter assembly and parts inspector, seemed to make it better however patient did not think so. She is on Cogentin 1 mg b.i.d. which ostensibly should prevent dystonia however it is still unclear to typewriter assembly and parts inspector what occurred today. Cousin said that this happens from time to time and she has understood it to be dry mouth secondary to medication. Pillar Man educated both on the side effect of dystonia for which they will monitor. -will add Benadryl 50 mg as a p.r.n. in case of dystonic reaction 11/07 same presentation; no tongue/mouth issues 11/08 Patient remains with considerable struggles completing tasks, dealing with a close due to excessive worrying. Discussed medication regimen and now that patient seems to have stabilized some discussing whether to start TCA for OCD. Patient has decompensated with SSRIs and there remain some risk with TCAs as well, however OCD symptoms are crippling and patient is desperate for relief. -consulting with Dr. Bryant; will reach out to outpatient provider to get additional history on medication trials 11/09 Patient doing a little better and actually smiling and laughing some while talking with typewriter assembly and parts inspector. Still gets very anxious when talking about dealing with her clothes/laundry but can pull herself out of it a little faster than before. Patient said she is pretty anxious about returning to her sister/cousin's house. She loves her cousin but can get very frustrated there; patient becomes tearful thinking about it. Discussed medication and ambivalence about whether to add clomipramine. Patient is doing a little better but still remains quite paralyzed by her excessive OCD type worries. Patient agrees to trial to see how it goes 11/10 more tearful and anxious than yesterday 11/11 pt crying so much, unable to have much of a discussion; beside herself regarding cloths (for which pt receives much help from staff). Discussed meds and she agrees to increase Lamictal. -will DC Clomipramine; some concern that patients increased tearfulness over past 2 days as team agrees she has decompenstated a little bit since started. Of course this may not be the cause, but since she was progressing some before clomipramine was started will dc -further discussed treatment plan with OT and it is agreed that having patient deal with her laundry is simply too triggering for her right now; will remove this from her behavioral plan to see if she can further stabilize. 11/15/2023: Continue current regimen and plans 11/15 Lamictal increased to b.i.d.; taking away chore of doing laundry; will discuss with cousin when she thinks patient is able come home 11/16 continue current treatment plan; will try to get a hold of outpatient provider to discuss changes 11/17 continue current treatment; attempted but unable to get a hold of outpatient provider 11/18 Patient feels ready to go home; accepts that further reduction of symptoms will take continue titration of Lamictal. Also discussed day program with patient who agreed that having activities during the day will be good for both her and her cousin. Discussed with patient's cousin/healthcare proxy with whom she lives and who recently saw patient on the unit a few days ago. She feels that patient has improved and is close enough to baseline, ready to come home. Discussed aftercare plans and cousin was encouraged to know that referral is out to day program for patient. Medications: -DISCONTINUEd Clomipramine 25mg qhs; starting this med on 11/09 correlated with decompensation; could be a simple coincidence however not worth the risk at this time -continue Lamictal 25mg b.i.d. -continue Benadryl 50 mg p.r.n. for dystonia -Continue Thorazine 50mg TID PRN for anxiety/agitation (will dc haldol prn and hydroxyzine prn since not helping) -Continue Thorazine 50mg TiD -continue haldol dec 100mg IM received November 10 -continue gabapentin to 300mg TId to see if can help with anxiety (started for foot pain, however, pain is new, from walking halls) -Continue Trileptal 300mg t.i.d. for anxiety; will titrate; not sure if will be helpful, but few options left to address anxiety as Vraylar/lamictal become theapeutic -working with OT for help with CBT -DC Vraylar 4.5mg has not seem to help -regarding MRI, patient's cousin says they will discuss with patients own outpatient neurologist -VICTORINO'wilian Arzatezapolina concern for bipolar disorder, dry mouth Neurology/EEG: Previously she has reported some symptoms suggestive of complex partial seizures and had mildly abnormal EEG. At this time her presentation was different but I would suggest obtaining an EEG again. In addition, if a mood stabilizer is needed, I would recommend using lamotrigine, topiramate, or valproic acid. -Neurology consult 10/24 Dr. Ma, 47 years old woman admitted in hospital with severe depression and self-harm type of behavior. Couple of years ago she was admitted in hospital and reported episodes of her patel type of feeling going to her head lasting for seconds to minutes. At that time an EEG revealed left temporal sharp waves. CT scan and MRI of brain were okay. 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 Lamictal: did not seem to help, but...may have been too low a dose Fluvoxamine? not sure if helpful ECT: no help; memory loss Vraylar 4.5mg has not seemed to help Clozapine: did not tolerate frequent blood draws abilify: severe restlessness Risperdal: severe restlessness [place]: bed-wetting; not sure if helped Depakote: muscle cramps, restless... Latuda: TD Seroquel 50 mg Q 4 p.r.n. (makes aggressive) Nuedexta (Dextromethorphan /Quinidine) for uncontrollable crying/laughing Oxybutynin 10 mg Propranolol 20 mg t.i.d. Other hx: -Psych admission 2019 [place] -[facility] for 1 year 2019- did ok, ups/downs; lots of med changes -Home with Cousin 2020-current: past 2.5 years overall good enough, lots of up/downs and med changes BETH and some trouble breathing? Seratonin Syndrom on some meds for depression? (not sure details) -Thinks recent decomp result of adding Paxil which caused high irritability/manic/obsessive and then Prozac which caused the same; since then, outpt provider trying to do a reset on meds... Says when at home w/ Cousin, ups/downs but was able to overall function at home with sufficient good enough periods where she'd go out and do activities (with help), put on makeup, enjoy things...Sayda reports constant medication changes making it difficult to know what meds worked or at least were partially helpful...wonders that during down times, it would be better to just wait it out rather than make med changes. Thinks recent decomp result of adding Paxil which caused high irritability/manic/obsessive and then Prozac which caused the same; since then, outpt provider trying to do a reset on meds.. Time spent discussing smoking cessation with patient: 3 to 10 minutes Status at Discharge Functional status at discharge: independent ambulation Overall status at discharge: patient is progressing back to baseline Time Spent with Patient Time attestation: Total time managing care of this patient today ____ minutes. Time spent: Less than 30 minutes Discharge Plan Discharge Anticipated Discharge Date/Time: 11/20/23 17:30 Patient Disposition: Home, Self-Care Discharge Diagnosis: Bipolar I disorder, recurrent, severe, mixed; OCD, severe with insight [facility]: [facility] ([facility] [place] [Other] - 1 Week (Patient referred to [facility] [place] [facility] [place] ACCS team note that pateint will be evaluated on day of discharge for the [facility]) [facility]: Connie [facility] [Other] - 12/03/23 5:40 pm (Hospital Discharge Appointment with psychiatric medication provider ) Nahomi Dupont: [facility] [Other] - 11/24/23 5:00 pm (Hospital Discharge appointment with outpatient therapist Appointment is in office ) Kellee Reno MD [Primary Care Provider] - 11/30/23 1:00 pm (IN OFFICE) Discharge Medications: New chlorpromazine 50 mg tablet See Rx Instructions .ROUTE .COMPLEX Qty: 120 0RF Rx Instructions: take 1 tab TID; may take one extra tab daily as needed for anxiety lamotrigine [Lamictal] 25 mg tablet 25 mg PO BID 7 Days Qty: 14 0RF Rx Instructions: take 1 tab BID for 7 days; then take 100mg tab lamotrigine [Lamictal] 100 mg tablet 100 mg PO DAILY 30 Days Qty: 30 0RF Rx Instructions: start on 11/27/23 oxcarbazepine [Trileptal] 300 mg tablet 300 mg PO TID Qty: 90 0RF gabapentin 300 mg capsule 300 mg PO TID Qty: 90 0RF trazodone 50 mg tablet 50 mg PO BEDTIME PRN (Reason: insomnia) Qty: 30 0RF Continued haloperidol decanoate [Haldol Decanoate] 100 mg/mL solution 100 mg IM QMONTH Qty: 1 0RF Rx Instructions: (last received 11/11/23) next due 12/09/23 benztropine 1 mg tablet 1 mg PO BID 30 Days Qty: 60 0RF omeprazole 20 mg capsule,delayed release(DR/EC) 20 mg PO DAILY 30 Days Qty: 30 5RF cholecalciferol (vitamin D3) [Vitamin D3] 25 mcg (1,000 unit) Capsule 25 mcg PO DAILY 30 Days Qty: 30 0RF levothyroxine 75 mcg capsule 75 mcg PO DAILY Qty: 30 11RF Changed clonazepam 1 mg tablet 1 mg PO BID PRN (Reason: panic attack) 30 Days Qty: 60 0RF Discontinued fluoxetine [Prozac] 20 mg capsule 20 mg PO DAILY Discharge Orders: Discharge Order (Routine); Ordered 11/20/23 Ordered By: Al Milian Diet: Regular diet Activity on Discharge: As tolerated Stand Alone Forms: Patient Portal Discharge page, Community Support Print Language: Portuguese Care Plan Goals: Maintain mood and safe behaviors Take medications as prescribed Practice coping skills Continue with outpatient providers and reach out to them as needed Health Concerns: Mood stability and behaviors Right Frontal lobe lesion Plan of Treatment: Follow up with your PCP, Neurologist, psychiatric provider and other outpatient providers regarding above concerns Take medications as prescribed For Lamictal: Take Lamictal 25mg BID for 7 more days; then take Lamictal 100mg daily Assessment: Risk assessment at time of discharge:? Patient was interviewed prior to discharge and found to be fully oriented and without any SI or HI. Patient has improved insight and judgment and wants to continue treatment. Patient is not in imminent risk of harm to self or others and has a safety plan that includes presenting to the closest ER or calling 911 if feeling unsafe.? Patient has been observed closely by nursing and unit staff throughout admission; patient has not engaged in any behaviors that suggest dangerousness to self or others and has demonstrated appropriate behaviors and impulse control Discharge Date/Time: 11/20/23 18:00
== END 2023-11-20 18:00 | disposition home or self-care (01) | DRG 753 ==
LOC: HO.ED 10-21 13:34 → HO.PM5 10-21 15:07
PROVIDERS: Clinical Nurse Specialist Psychiatric/Mental Health, Adult; Emergency Medicine; Admitting Provider Psychiatry & Neurology Psychiatry; Emergency Provider Emergency Medicine; PCP Internal Medicine; Visit Provider Psychiatry & Neurology Psychiatry
DX: F31.60 Bipolar disorder, current episode mixed, unspecified (principal); F42.9 Obsessive-compulsive disorder, unspecified; Z20.822 Contact with and (suspected) exposure to COVID-19; Z79.890 Hormone replacement therapy; Z79.899 Other long term (current) drug therapy
CPT/HCPCS: 36415; 80053; 80061; 80307; 81001; 81025; 82607; 82746; 83036; 83735; 84439; 84443; 85025; 87086; 87635; 93005; 95816; 99285; J1631

== ENCOUNTER → 2023-10-21 08:32 | Outpatient (BNV) | payer MEDICAID, SELFPAY | PROVIDERS: Emergency Provider Emergency Medicine; PCP Internal Medicine; Visit Provider Internal Medicine Cardiovascular Disease | DX: R41.82 Altered mental status, unspecified (principal) | CPT/HCPCS: 93010 ==

== ENCOUNTER 2023-10-21 14:58 | Outpatient (BNV) | payer MEDICAID, SELFPAY | END 2023-10-31 16:14 | PROVIDERS: Admitting Provider Psychiatry & Neurology Psychiatry; Emergency Provider Emergency Medicine; PCP Internal Medicine; Visit Provider Internal Medicine | DX: F31.60 Bipolar disorder, current episode mixed, unspecified (principal); R94.01 Abnormal electroencephalogram [EEG] | CPT/HCPCS: 93010 ==

== ENCOUNTER → 2023-10-21 14:58 | Outpatient (BNV) | payer MEDICAID, SELFPAY | PROVIDERS: Admitting Provider Psychiatry & Neurology Psychiatry; Emergency Provider Emergency Medicine; PCP Internal Medicine; Visit Provider Psychiatry & Neurology Neurology | DX: R94.01 Abnormal electroencephalogram [EEG] (principal) | CPT/HCPCS: 99222 ==

== ENCOUNTER → 2023-10-21 14:58 | Outpatient (BNV) | payer OTHER, SELFPAY | PROVIDERS: Admitting Provider Psychiatry & Neurology Psychiatry; Emergency Provider Emergency Medicine; PCP Internal Medicine; Visit Provider Clinical Nurse Specialist Psychiatric/Mental Health | DX: F31.63 Bipolar disorder, current episode mixed, severe, without psychotic features (principal); F42.2 Mixed obsessional thoughts and acts; R94.01 Abnormal electroencephalogram [EEG] | CPT/HCPCS: 99231; 99232; 99233 ==

== ENCOUNTER 2023-11-30 13:53 | Outpatient (REF) | payer OTHER, SELFPAY ==
[2023-11-30 15:56] LABS: MANUAL DIFF FLAG NO
[2023-11-30 16:21] LABS: Basophils Percent Auto 0.5 % (0-2); Eosinophils Absolute Auto 0.1 X10*3/uL (0.0-0.4); Eosinophils Percent Auto 0.6 % (0-4); Hemoglobin 13.7 g/dl (12.0-16.0); Imm Gran Abs Auto 0.02 X10*3/uL (0.00-0.03); Imm Gran Pct Auto 0.2 % (0.0-0.4); Lymphocytes Absolute Auto 2.1 X10*3/uL (1.2-4.9); Lymphocytes Percent Auto 25.9 % (20-40); Mean Corpuscular HGB Conc 34.3 g/dl (31.0-35.0); Mean Corpuscular Hemoglobin 29.5 pg (27.0-33.0); Mean Platelet Volume 10.2 fL (9.4-12.3); Monocytes Absolute Auto 0.8 X10*3/uL (0.1-1.2); Monocytes Percent Auto 9.3 % (2-11); Neutrophils Absolute Auto 5.2 x10*3/uL (2.0-8.3); Neutrophils Percent Auto 63.5 % (45-73); Platelet Count 412 X10*3/uL (160-400); Red Blood Count 4.65 X10*6/uL (4.20-5.50); Red Cell Distribution Width 12.7 % (11.0-16.0); White Blood Count 8.3 X10*3/uL (4.8-10.8)
[2023-11-30 16:40] LABS: Alanine Aminotransferase 21 U/L (0-31); Albumin Level 4.1 g/dL (3.5-5.0); Alkaline Phosphatase 77 U/L (39-117); Anion Gap 13 (12-20); Aspartate Amino Transferase 16 U/L (5-31); Bilirubin Direct 0.2 mg/dL (0.0-0.5); Bilirubin Total 0.3 mg/dL (0.0-1.0); Blood Urea Nitrogen 7 mg/dL (9-16); Calcium 9.7 mg/dL (8.4-10.2); Carbon Dioxide 24 mmol/L (22-29); Chloride 107 mmol/L (96-108); Cholesterol 177 mg/dL (<200); Estimated Glomerular Filt Rate > 60; Glucose Random 96 mg/dL (60-115); HDL Cholesterol 58 mg/dL (>40); LDL Cholesterol Calculated 98 mg/dL (<100); Potassium 4.5 mmol/L (3.3-5.1); Sodium 139 mmol/L (135-145); Triglycerides 106 mg/dL (<150)
[2023-11-30 16:56] LABS: TSH reflex Free T4 0.57 uIU/mL (0.32-4.0)
== END 2023-11-30 13:54 | disposition home or self-care (01) ==
LOC: HO.HHCL 13:53
PROVIDERS: Student in an Organized Health Care Education/Training Program; Visit Provider Internal Medicine
DX: R41.82 Altered mental status, unspecified (principal); F31.9 Bipolar disorder, unspecified
CPT/HCPCS: 36415; 80048; 80061; 80076; 84443; 85025

== ENCOUNTER 2023-12-11 11:08 | Outpatient (REF) | payer OTHER, SELFPAY ==
[2023-12-11 13:28] LABS: MANUAL DIFF FLAG NO
[2023-12-11 13:50] LABS: Basophils Absolute Auto 0.1 X10*3/uL (0.0-0.2); Basophils Percent Auto 0.6 % (0-2); Eosinophils Absolute Auto 0.2 X10*3/uL (0.0-0.4); Eosinophils Percent Auto 2.8 % (0-4); Hematocrit 40.6 % (37.0-47.0); Hemoglobin 13.7 g/dl (12.0-16.0); Imm Gran Abs Auto 0.02 X10*3/uL (0.00-0.03); Imm Gran Pct Auto 0.2 % (0.0-0.4); Lymphocytes Absolute Auto 2.3 X10*3/uL (1.2-4.9); Lymphocytes Percent Auto 26.6 % (20-40); Mean Corpuscular HGB Conc 33.7 g/dl (31.0-35.0); Mean Corpuscular Hemoglobin 29.6 pg (27.0-33.0); Mean Corpuscular Volume 87.7 fL (80.0-98.0); Mean Platelet Volume 10.2 fL (9.4-12.3); Monocytes Absolute Auto 0.9 X10*3/uL (0.1-1.2); Neutrophils Absolute Auto 5.2 x10*3/uL (2.0-8.3); Neutrophils Percent Auto 59.8 % (45-73); Platelet Count 443 X10*3/uL (160-400); Red Blood Count 4.63 X10*6/uL (4.20-5.50); Red Cell Distribution Width 12.9 % (11.0-16.0); White Blood Count 8.7 X10*3/uL (4.8-10.8)
[2023-12-11 14:23] LABS: Alanine Aminotransferase 11 U/L (0-31); Albumin Level 4.3 g/dL (3.5-5.0); Alkaline Phosphatase 67 U/L (39-117); Anion Gap 10 (12-20); Aspartate Amino Transferase 13 U/L (5-31); Bilirubin Total 0.3 mg/dL (0.0-1.0); Blood Urea Nitrogen 11 mg/dL (9-16); Calcium 9.7 mg/dL (8.4-10.2); Carbon Dioxide 25 mmol/L (22-29); Chloride 105 mmol/L (96-108); Estimated Glomerular Filt Rate > 60; Glucose Random 92 mg/dL (60-115); Potassium 4.4 mmol/L (3.3-5.1); Sodium 136 mmol/L (135-145); Total Protein 7.2 g/dL (6.5-8.0)
[2023-12-12 04:27] LABS: ~HepC Num1 0.09 S/CO (0.00-0.79); ~Hepatitis C Antibody Nonreactive (Nonreactive)
== END 2023-12-11 11:09 | disposition home or self-care (01) ==
LOC: HO.HHCL 11:08
PROVIDERS: Visit Provider Nurse Practitioner Family
DX: Z11.59 Encounter for screening for other viral diseases (principal); R10.32 Left lower quadrant pain
CPT/HCPCS: 36415; 80053; 85025; 86803

== ENCOUNTER 2023-12-23 11:10 | Outpatient (REF) | payer MEDICAID, SELFPAY ==
--- NOTE | ~2023-12-23 | US_ITS ---
EXAMINATION: US PELVIS CLINICAL INFORMATION: Left lower quadrant pain, hysterectomy, question ovarian cyst. COMPARISON: None available. TECHNIQUE: Ultrasound of the pelvis was performed using both transabdominal and transvaginal transducers along with Doppler. Transvaginal imaging was performed due to inadequate visualization transabdominally. FINDINGS: The uterus is surgically absent. Left ovary not visualized. Limited visualization due to bowel gas. Right ovary measures 3.1 x 2.0 x 1.9 cm, volume 6.2 mL. No significant free fluid appreciated. 1.7 x 1.7 x 1.5 cm right ovarian cyst appears simple. 0.6 x 0.8 x 0.6 cm right ovarian cyst is mildly complex with low-level internal echoes and possible septation, difficult to fully characterize due to bowel gas. US/US pelvic and transvaginal IMPRESSION: 1. Uterus surgically absent. 2. Left ovary not visualized. Limited visualization due to bowel gas. 3. Right ovarian 1.7 cm cyst appears simple. Right ovarian 0.8 cm mildly complex cyst is difficult to fully characterize due to limited visualization. Correlation with clinical history recommended to determine further management for this postmenopausal patient.
== END 2023-12-23 11:11 | disposition home or self-care (01) ==
LOC: HO.US 11:10
PROVIDERS: PCP Internal Medicine; Visit Provider Nurse Practitioner Family
DX: R10.32 Left lower quadrant pain (principal)
CPT/HCPCS: 76830; 76856

== ENCOUNTER 2024-01-07 14:00 | Outpatient (REF) | payer MEDICAID, SELFPAY ==
--- NOTE | ~2024-01-07 | US_ITS ---
EXAMINATION: MM DIAGNOSTIC DIGITAL BREAST TOMOSYNTHESIS, LEFT US BREAST LIMITED, LEFT MAMMOGRAPHY: CLINICAL INFORMATION: Superficial palpable area noted by patient parasternal inferior medial left breast with mild tenderness. Patient notes cutaneous discharge in past from this area. Prior history left lumpectomy 10/29/2020 for complex sclerosing lesion. No atypia or malignancy. COMPARISON: Mammography: 09/16/2023, 09/15/2022, 09/02/2021, 05/01/2021, 08/30/2020 Left breast ultrasound 05/20/2022. TECHNIQUE: Digital breast tomosynthesis is performed in the following views: Full-field 3-D digital left CC, left MLO, left mediolateral views, as well as 3-D spot compression left MLO and left cc views. This was followed by targeted left breast ultrasound. FINDINGS: The breasts are heterogeneously dense, which may obscure small masses (ACR BI-RADS breast composition Category c). There are post lumpectomy changes with stable scarring central upper outer left breast. There are no significant changes from prior mammography. No mammographic correlate for patient's symptoms posterior lower inner breast. Mild skin thickening noted abutting the inframammary fold far inferomedial aspect approximately 8:00 position. ULTRASOUND: CLINICAL INFORMATION: As above COMPARISON: 05/28/2022. TECHNIQUE: Targeted sonographic evaluation was performed using a high frequency linear transducer. Attention was given to the 8:00 axis of the left breast, and the region of skin thickening. This was the same area imaged in the past. Selected archived documentation. FINDINGS: LEFT BREAST: There is redemonstration of an intradermal hypoechoic lenticular collection measuring 1.4 x 0.9 x 0.2 cm, previously 1.7 x 1.1 x 0.3 cm. This is a dermal lesion consistent with either a dermal fluid collection or sebaceous cyst. No subdermal extension. Mild hyperemia peripherally on color Doppler. It is slightly smaller than on the previous examination from 05/20/2022. Recommend clinical management. US/US breast LT limited mamm only IMPRESSION: There are no findings suggestive of malignancy in the left breast. There are are stable post benign lumpectomy changes centrally. Region of skin thickening left breast far medial inferior 8:00 axis with intradermal hypoechoic lentiform collection, slightly smaller than previously in 05/20/2022, however representing the same exact region and likely the same lesion. This could be a sebaceous cyst, epidermoid cyst, or small intradermal fluid collection. This should be dealt with clinically, by a surgeon or geotechnical engineer. OVERALL ASSESSMENT: Mammography: BI-RADS 2 - Benign Findings Ultrasound: BI-RADS 2 - Benign Findings RECOMMENDATION: 1. Patient should be managed based on the clinical impression. 2. Otherwise, routine annual screening mammography. This patient's information was entered into a reminder system with a target due date for their next mammogram. .
== END 2024-01-07 14:01 | disposition home or self-care (01) ==
LOC: HO.MAMMO 14:00
PROVIDERS: PCP Internal Medicine; Visit Provider Internal Medicine
DX: N63.24 Unspecified lump in the left breast, lower inner quadrant (principal)
CPT/HCPCS: 76642; 77061; 77065

== ENCOUNTER → 2024-01-07 14:30 | Outpatient (BNV) | payer MEDICAID, SELFPAY | PROVIDERS: PCP Internal Medicine; Visit Provider Radiology Diagnostic Radiology | DX: N63.25 Unspecified lump in the left breast, overlapping quadrants (principal) | CPT/HCPCS: 76642; 77065; G0279 ==

== ENCOUNTER 2024-04-05 18:36 | Outpatient (REF) | payer MEDICAID, SELFPAY | END 2024-04-05 18:37 | disposition home or self-care (01) | LOC: HO.HHCLNP 18:36 | PROVIDERS: Visit Provider Emergency Medicine | DX: R35.0 Frequency of micturition (principal) | CPT/HCPCS: 87086 ==